=== PATIENT | male | born 1955 | race Caucasian/White ===

== ENCOUNTER 2019-03-19 13:59 | Emergency (ER) | payer MEDICARE, SELFPAY ==
[2019-03-19 14:00] VITALS: BP 121/73; PULSE 71; RESP 16; TEMP 37.2; O2SAT 98; BMI 24.3
[2019-03-19 14:41] LABS: Bedside Glucose 116 mg/dL (70-110)
[2019-03-19 14:41] LABS: Absolute Lymphocyte Count 1.77 X10^3/ul (0.83-4.51); Absolute Neutrophil Count 5.6 X10^3/uL (2.0-7.7); Basophil# 0.05 X10^3/uL; Basophil% 0.6 % (0-1); Eosinophil# 0.33 X10^3/uL; Eosinophils% 3.8 % (0-5); Hematocrit 45.7 % (40-54); Hemoglobin 15.1 g/dl (13.0-16.5); Lymphocyte # 1.77 X10^3/ul (4.0); Lymphocyte % 20.6 % (19-41); Mean Corpuscular Hgb 29.9 pg (27.0-32.0); Mean Corpuscular Volume 90.5 fL (80-94); Mean Platelet Vol. 10.2 fl (6.2-12.0); Monocyte# 0.79 X10^3/uL; Monocyte% 9.2 % (0-10); Neutrophil # 5.64 X10^3/uL (2.7-7.7); Neutrophil % 65.5 % (47-70); POSITIVE COUNT NO; POSITIVE DIFFERENTIAL NO; POSITIVE MORPHOLOGY NO; Platelet Count 179 K/mm3 (150-450); RBC Distribution Width CV 13.3 % (11.6-14.6); RBC Distribution Width SD 43.2 fl (35.1-43.9); Red Blood Count 5.05 M/mm3 (4.6-6.2); White Blood Count 8.6 K/mm3 (4.4-11.0)
[2019-03-19 14:51] LABS: Anion Gap 3 (5-15); BUN 20 mg/dL (7-18); BUN/Creat Ratio 16.5 RATIO (10-20); Calcium,Total 9.2 mg/dL (8.5-10.1); Chloride 105 mmol/L (98-107); Creatinine, Serum 1.21 mg/dL (0.70-1.30); EST Glomerular Filtration Rate 64 mL/min (>60); Est Glom Filt Rate - Afr Amer 77 mL/min (>60); Estimated Creatinine Clearance 71.71 ml/min; Glucose 101 mg/dL (74-106); Potassium 4.2 mmol/L (3.5-5.1); Sodium Level 136 mmol/L (136-145)
--- NOTE | 2019-03-19 15:26 | ED.VIS.GEN ---
History of Present Illness Chief Complaint: Neuro S/Sx Detail of Chief Complaint: Confusion, staring with left facial twitching Informant: Patient, Significant Other Onset: Weeks - reports 6 weeks. Patient states longer Context: Sudden Onset Timing: Intermittent Quality: Facial twitching with staring Location: Not applicable Current Severity: - - Resolved Maximum Severity: Moderate Worsened by: Prior history of left hemispheric bleed Relieved by: Nothing Associated Symptoms: no loss of postural tone or incontinence Narrative: Patient is a 63-year-old male who had a left hemispheric hemorrhagic stroke 6 years ago. He has residual right-sided weakness and altered sensation. He apparently is having episodes of staring with nonresponsiveness and facial twitching on the left side for the past 6 weeks according the patient longer per the . He denies headache. He denies change in vision. Denies trouble with speech or swallowing. No neurologic symptoms. Prior similar symptoms: No Recent Illness/Hospitalization: No - Past Medical History (1) History of hemorrhagic stroke with residual hemiparesis Status: Acute Past Medical History - Allergies and Home Meds Allergies/Adverse Reactions: Allergies Iodinated Contrast- Oral and IV Dye [CONTRASTS] Allergy (Verified 03/19/19 14:02) Hives Primary Care Physician: Evon Oneal MD [Primary Care Provider] - Prior records reviewed: Yes Lives: Spouse/ Significant Other Smoking Status: Former smoker Alcohol: None Review of Systems General: Denies: Chills, Fever, Sweats Eyes: Denies: Visual changes - bilaterally, Blurred Vision - bilaterally, Diplopia ENT: Denies: Bilateral ear pain, Rhinorrhea, Sore throat Cardiovascular: Denies: Chest pain, Palpitations Respiratory: Denies: Dyspnea, Cough, Dyspnea on exertion Gastrointestinal: Denies: Abdominal pain, Nausea, Vomiting, Diarrhea, Melena, Hematochezia Musculoskeletal: Denies: Myalgias, Arthralgias, Neck pain, Back pain, Swelling, Extremity Pain, -, - Skin: Denies: Rash, Wounds Neurological: Denies: Headache, Weakness, Parasthesia, Numbness Hematologic: Denies: Easy bruising, Easy bleeding Allergy: Denies: Uticaria, Swelling of the mouth Physical Exam Vital Signs/Narrative: Vital Signs Temp Pulse Resp BP Pulse Ox 03/19/19 14:00 98.9 F 71 16 121/73 H 98 Inital Vital Signs reviewed: Yes General: Well nourished, Well developed, No Acute Distress Head: Normocephalic, Atraumatic Eyes: Perrl, EOMI. Negative for: Pale conjunctiva ENT: Moist mucous membranes, No rhinorrhea, TM's clear Neck: Supple, Nontender, No lymphadenopathy, No JVD Cardiovascular: Regular rate, Regular rhythm, No murmurs, Normal S1, Normal S2 Respiratory: No distress, CTA bilaterally, Chest nontender Abdomen: Soft, Nontender, Nondistended, Normal bowel sounds Rectal: Deferred Back: Nontender, Normal Inspection Extremities: Nontender, No edema Skin: Normal color, No rash Neurological: Alert, Oriented x3. Negative for: Cranial nerves II-XII grossly intact, Normal Strength, Normal Sensation, Normal DTR - Bilateral Babinski sign, Normal Gait Psychological: Normal affect Diagnostic/Tx/Re-eval Laboratory Results 03/19/19 03/19/19 03/19/19 14:25 14:32 14:32 WBC 8.6 RBC 5.05 Hgb 15.1 Hct 45.7 MCV 90.5 MCH 29.9 MCHC 33.0 RDW 13.3 RDW Differential 43.2 Plt Count 179 MPV 10.2 Immature Gran % (Auto) 0.300 Neut % (Auto) 65.5 Lymph % (Auto) 20.6 Early % (Auto) 9.2 Eos % (Auto) 3.8 Baso % (Auto) 0.6 Absolute Neuts (auto) 5.6 Absolute Lymphs (auto) 1.77 Total Counted Not Reportable Sodium 136 Potassium 4.2 Chloride 105 Carbon Dioxide 28.0 Anion Gap 3 L BUN 20 H Creatinine 1.21 Estim Creat Clear Calc 71.71 Est GFR (MDRD) Af Amer 77 Est GFR (MDRD) Non-Af 64 BUN/Creatinine Ratio 16.5 Glucose 101 Calcium 9.2 POC Glucose 116 H - Medical Decision Making Patient presents with altered consciousness with facial twitching. Case was discussed with Dr. Scot Alcantar. He requested patient to call office for outpatient follow-up and work-up. He and all likely will need an MRI and EEG. He did not want patient started on any anticonvulsant. ED Disposition - Plan for ED Patient: Disposition: Home or Assisted Living Diagnosis: Focal motor seizure Instructions: ED Seizure New Onset Unk Cause Referrals: Evon Oneal MD [Primary Care Provider] - Scot Alcantar MD [STAFF PHYSICIAN] - 5-7 Days
[2019-03-19 15:59] VITALS: BP 121/83; PULSE 60; RESP 16; O2SAT 97
== END 2019-03-19 16:01 | disposition home or self-care (01) ==
PROVIDERS: Emergency Provider Emergency Medicine; Family Provider Internal Medicine; PCP Internal Medicine
DX: R56.9 Unspecified convulsions (principal); I69.351 Hemiplegia and hemiparesis following cerebral infarction affecting right dominant side; I69.398 Other sequelae of cerebral infarction; R20.9 Unspecified disturbances of skin sensation; Z87.891 Personal history of nicotine dependence
CPT/HCPCS: 80048; 82962; 85025; 99284; A4216

== ENCOUNTER 2020-03-21 14:54 | Emergency (ER) | payer MEDICARE, SELFPAY ==
[2020-03-21] VITALS (11 sets, daily range): BP systolic 106–190; BP diastolic 73–127; PULSE 64–85; RESP 17–20; TEMP 36.6; O2SAT 95–969; BMI 27.4
--- NOTE | 2020-03-21 15:01 | CT_ITS ---
We are attempting to reach an attending provider to discuss findings. An addendum with communication details will be sent when the communication is complete. STUDY: CT BRAIN WITHOUT CONTRAST REASON FOR EXAM: Male, 64 years old. STROKE RADIATION DOSAGE (If Supplied By Facility): CTDIvol = ( 44.99 ) mGy, DLP = ( 796.11 ) mGycm TECHNIQUE: Transaxial CT imaging of the brain was performed without administration of intravenous contrast material. Individualized dose optimization techniques were used for this CT. COMPARISON: None. FINDINGS: There is cerebral atrophy with widening of the extra-axial spaces and ventricular dilatation. There are areas of decreased attenuation within the white matter tracts of the supratentorial brain, consistent with microvascular disease changes. Left frontal, left parietal and right parietal encephalomalacia and gliosis , consistent with prior insults are noted. There is hypodensity of the right basal ganglia, infarct indeterminate age. There is no intracranial hemorrhage. There are no findings of an acute ischemic infarction. Normal soft tissue structures. Normal visualized paranasal sinuses. CT/Brain/Head without Contrast IMPRESSION: Right basal ganglia infarct. Acute infarction is not excluded. Chronic infarcts. Further evaluation with MRI can be obtained. Electronically Signed: Bri Carl MD at 15:21 EDT Tel , Service support ,
--- NOTE | 2020-03-21 15:01 | EKG12_ITS ---
Test Reason : NEURO Blood Pressure : / mmHG Vent. Rate : 066 BPM Atrial Rate : 066 BPM P-R Int : 176 ms QRS Dur : 076 ms QT Int : 426 ms P-R-T Axes : -15 011 019 degrees QTc Int : 446 ms Normal sinus rhythm Normal ECG Confirmed by DIPAK COVINGTON, KUMAR ([id number]), makeup editor ULICES ZHANG ([id number]) on 03/24/2020 1:09:15 PM Referred By: Confirmed By:KUMAR QUESADA MD
--- NOTE | 2020-03-21 15:01 | RAD_ITS ---
STUDY: X-RAY CHEST REASON FOR EXAM: Male, 64 years old. KNOWN INFILTRATION LEFT ARM FROM CTA TECHNIQUE: Single frontal view of the chest. COMPARISON: None. FINDINGS: Contrast infiltration in the soft tissues of the left arm. The lungs are clear and expanded. There is no demonstrated pleural abnormality. Prominent cardiac silhouette. Normal mediastinum and riley. Normal visualized pulmonary arteries. Normal visualized aortic arch and descending thoracic aorta. Normal visualized thoracic spine. Normal visualized ribs, clavicles, and shoulders. There is no demonstrated abnormality of the visualized soft tissue structures of the upper abdomen. RAD/Chest 1 View IMPRESSION: No acute pulmonary findings. Electronically Signed: Rick Valenzuela MD at 17:18 EDT Tel , Service support ,
--- NOTE | 2020-03-21 15:18 | CT_ITS ---
STUDY: CTA HEAD AND NECK WITH CONTRAST REASON FOR EXAM: Male, 64 years old. STROKE RADIATION DOSAGE (If Supplied By Facility): CTDIvol = ( 19.82 ) mGy, DLP = ( 696.81 ) mGycm TECHNIQUE: CT angiography was performed with a multi-detector CT scanner. Data acquisition was obtained from the skull base through the vertex following intravenous administration of 100 CC ISOVUE 370. MIP images were reconstructed from the axial data set. Post-processing of the angiographic images was performed, with multiplanar reformation and 3D reconstruction. Individualized dose optimization techniques were used for this CT. COMPARISON: Head CT 03/21/2020 FINDINGS: Normal bilateral petrous carotid arteries. Normal right cavernous carotid artery with a normal supraclinoid bifurcation. Normal left cavernous carotid artery with a normal supraclinoid bifurcation. There is hypoplastic development of the right A1 segment of the anterior cerebral arteries with an atretic but intact artery. Normal left A1 segments of the anterior cerebral artery. Normal intact anterior communicating artery (ACOM). Normal bilateral A2 segments of the anterior cerebral arteries. Normal right M1 and M2 segments of the middle cerebral arteries, with a normal M1 bifurcation. Normal left M1 and M2 segments of the middle cerebral arteries, with a normal M1 bifurcation. Normal right posterior communicating artery (PCOM). Normal left posterior communicating artery (PCOM). Normal bilateral vertebral arteries. Normal basilar artery with a normal basilar bifurcation. The visualized bilateral superior cerebellar (SCA) arteries are normal. Normal bilateral P1, P2 and visualized P3 segments of the posterior cerebral arteries. There is no demonstrated aneurysm of the [place] of [place]. Left posterior encephalomalacia. AORTIC ARCH: Normal visualized aortic arch. The proximal left subclavian artery is occluded from its origin distally for a length of 26 mm. RIGHT CAROTID ARTERIES: Normal right common carotid artery (CCA). Moderate concentric calcified bulb plaque without underlying flow-limiting stenosis. Normal origin of the right internal carotid (ICA) artery without a hemodynamically significant stenosis. Normal visualized cervical portion of the right internal carotid artery. Normal origin of the right external carotid artery (ECA). LEFT CAROTID ARTERIES: Circumferential mixed plaque is present in the proximal left common carotid artery with an associated 50% stenosis, with residual lumen diameter 5 mm and poststenotic diameter of 10 mm. Heavy concentric mixed plaque is present in the carotid bulb and ICA origin with an associated 50% stenosis, with residual lumen diameter of 2.4 mm and poststenotic diameter of 5 mm. Just distal to the carotid bulb narrowing described above, concentric soft plaque is present in the proximal left internal carotid artery with an associated 70% stenosis, with residual lumen diameter of 1.9 mm and poststenotic diameter of 5.9 mm. Normal visualized cervical portion of the left internal carotid artery. Normal origin of the left external carotid artery (ECA). VERTEBRAL ARTERIES: The left vertebral artery arises from the proximal left subclavian artery, just distal to the subclavian artery occlusion described above. The left vertebral artery itself is patent throughout its course in the neck. The right vertebral artery is patent. Pulmonary emphysema. CT/CTA Head AND Neck W/ Contrast IMPRESSION: No CTA evidence of significant intracranial arterial pathology. 50% stenosis of the proximal left common carotid artery. 50% stenosis of the origin of the left ICA in the neck. 70% stenosis of the proximal left ICA in the neck. The proximal left subclavian artery is occluded from its origin distally for a length of 26 mm. The left vertebral artery in the neck arises from the proximal left subclavian artery, just distal to the subclavian artery occlusion described above. The left vertebral artery itself is otherwise patent throughout its course in the neck. NASCET criteria was used. Electronically Signed: Rcik Valenzuela MD at 18:05 EDT Tel , Service support ,
[2020-03-21] MEDS: DiphenhydrAMINE 50 MG/ML Syringe 25 MG IV (15:27)
[2020-03-21] MEDS: MethylPREDNISolone 125 MG/2 ML Vial 60 MG IV (15:27)
--- NOTE | 2020-03-21 15:27 | ED.VIS.STROK ---
History of Present Illness Chief Complaint: Neuro S/Sx Informant: Field Marketing Representative Narrative: Reportedly the patient was last seen last night. No specific timeframe upon the patient's arrival was given. Per EMS the checked on the patient prior to calling 911 and he was found virtually unresponsive in his bed. She told EMS that the TVs were on in the house which was a bit unusual. Patient has a history of a prior left-sided hemorrhagic stroke that left him with right arm paralysis per EMS. Reportedly 6 months ago was experiencing seizures and was placed on Keppra. He was seen Dr. Scot Alcantar in [place] for neurology. From what I can glean from the chart the patient was seen 2 days ago with 6 weeks of intermittent confusion and facial twitching. Case was discussed with his neurologist at that time and outpatient follow-up was recommended. Past Medical History - Allergies and Home Meds Allergies/Adverse Reactions: Allergies Iodinated Contrast Media [CONTRASTS] Allergy (Verified 03/19/19 14:02) Hives Primary Care Physician: Evon Oneal MD [Primary Care Provider] - Smoking Status: Former smoker Review of Systems ROS: Unable to Obtain STROKE Vital Signs/Narrative: Vital Signs Temp Pulse Resp BP 03/21/20 15:12 97.8 F 64 17 173/75 H 03/21/20 15:00 67 17 155/94 H 03/21/20 14:57 97.8 F 67 18 157/127 H Inital Vital Signs reviewed: Yes - NIHSS Initial 1a Level of Consciousness: 0 1b LOC Questions (Score 2 if aphasic/stupor): 2 1c LOC Commands (Only score 1st attempt): 1 2 Best Gaze (If aphasic, use reflexive mvmts.): 2 3 Visual: 2 4 Facial Palsy: 0 5 Motor Arm Right (UN = amputation/fusion): UN 5 Motor Arm Left: UN 6 Motor Leg Right: UN 6 Motor Leg Left: UN 7 Limb ataxia (Only + if out of proportion): UN 8 Sensory (Aphasia/stupor=0 or 1, coma=2): 1 9 Best Language: 0 10 Dysarthria (mute, coma=2, intubated=UN): 2 11 Extinction and Inattention (only scored if +): 2 Total Score: 12 General: Well nourished, Well developed Head: Normocephalic, Atraumatic Eyes: Perrl, - - Patient's eyes seem deviated to the right and I cannot get him to look to the left past midline ENT: Moist mucous membranes, No rhinorrhea Neck: Supple, Nontender Cardiovascular: Regular rate, Regular rhythm, No murmurs Respiratory: No distress, CTA bilaterally, Chest nontender Abdomen: Soft, Nontender, Nondistended, Normal bowel sounds Back: Nontender, Normal Inspection Extremities: Nontender, No edema Skin: Normal color, No rash Neurological: - - I asked the patient to wiggle the fingers of his left hand and he could and then I asked him to wiggle his toes on the left foot and he could. After that I was unable to get him to follow any further directions. I did see him wrinkle his forehead Diagnostic/Tx/Re-eval Clinical Impression(s) from Imaging Studies Brain CT 03/21/20 15:01 IMPRESSION: Right basal ganglia infarct. Acute infarction is not excluded. Chronic infarcts. Further evaluation with MRI can be obtained. Electronically Signed: Bri Carl MD at 15:21 EDT Tel , Service support , ADDENDUM: 03/21/20 1558 IMPRESSION: Right basal ganglia infarct. Acute infarction is not excluded. Chronic infarcts. Further evaluation with MRI can be obtained. N.B. : The above information has been verbally conveyed by Bri Carl MD to Dillon Morales MD, , on 03/21/2020 15:51:42 (ET). Electronically Signed: Bri Carl MD at 15:21 EDT Tel , Service support , Chest X-Ray 03/21/20 15:01 IMPRESSION: No acute pulmonary findings. Electronically Signed: Rick Valenzuela MD at 17:18 EDT Tel , Service support , Head/Neck CTA 03/21/20 15:18 IMPRESSION: No CTA evidence of significant intracranial arterial pathology. 50% stenosis of the proximal left common carotid artery. 50% stenosis of the origin of the left ICA in the neck. 70% stenosis of the proximal left ICA in the neck. The proximal left subclavian artery is occluded from its origin distally for a length of 26 mm. The left vertebral artery in the neck arises from the proximal left subclavian artery, just distal to the subclavian artery occlusion described above. The left vertebral artery itself is otherwise patent throughout its course in the neck. NASCET criteria was used. Electronically Signed: Rick Valenzuela MD at 18:05 EDT Tel , Service support , Laboratory Last Values WBC 13.9 K/mm3 (4.4-11.0) H 03/21/20 15:06 RBC 5.30 M/mm3 (4.6-6.2) 03/21/20 15:06 Hgb 15.7 g/dL (13.0-16.5) 03/21/20 15:06 Hct 48.6 % (40-54) 03/21/20 15:06 MCV 91.7 fL (80-94) 03/21/20 15:06 MCH 29.6 pg (27.0-32.0) 03/21/20 15:06 MCHC 32.3 g/dL (32-36) 03/21/20 15:06 RDW Std Deviation 41.8 fl (35.1-43.9) 03/21/20 15:06 RDW Coeff of Shazia 12.6 % (11.6-14.6) 03/21/20 15:06 Plt Count 267 K/mm3 (150-450) 03/21/20 15:06 MPV 10.4 fl (6.2-12.0) 03/21/20 15:06 Immature Gran % (Auto) 0.500 % (0.0-0.9) 03/21/20 15:06 Neut % (Auto) 90.8 % (47-70) H 03/21/20 15:06 Lymph % (Auto) 6.1 % (19-41) L 03/21/20 15:06 [place] % (Auto) 2.3 % (0-10) 03/21/20 15:06 Eos % (Auto) 0.0 % (0-5) 03/21/20 15:06 Baso % (Auto) 0.3 % (0-1) 03/21/20 15:06 Absolute Neuts (auto) 12.6 X10^3/uL (2.0-7.7) H 03/21/20 15:06 Absolute Lymphs (auto) 0.85 X10^3/uL (0.83-4.51) 03/21/20 15:06 Nucleated RBC % 0 % (0-5) 03/21/20 15:06 PT 12.9 SECONDS (11.7-14.9) 03/21/20 15:06 INR 1.0 03/21/20 15:06 APTT 32.6 Seconds (24.1-36.2) 03/21/20 15:06 Sodium 139 mmol/L (136-145) 03/21/20 15:06 Potassium 4.7 mmol/L (3.5-5.1) 03/21/20 15:06 Chloride 103 mmol/L (98-107) 03/21/20 15:06 Carbon Dioxide 26.0 mmol/L (21.0-32.0) 03/21/20 15:06 Anion Gap 10 (5-15) 03/21/20 15:06 BUN 15 mg/dL (7-18) 03/21/20 15:06 Creatinine 1.37 mg/dL (0.70-1.30) H 03/21/20 15:06 Estim Creat Clear Calc 55.50 ml/min 03/21/20 15:06 Est GFR (MDRD) Af Amer 67 mL/min (>60) 03/21/20 15:06 Est GFR (MDRD) Non-Af 55 mL/min (>60) L 03/21/20 15:06 BUN/Creatinine Ratio 10.9 RATIO (10-20) 03/21/20 15:06 Glucose 131 mg/dL (74-106) H 03/21/20 15:06 Calcium 9.4 mg/dL (8.5-10.1) 03/21/20 15:06 Troponin I < 0.015 ng/mL (<0.045) 03/21/20 15:06 Urine Color Yellow (Yellow) 03/21/20 17:55 Urine Clarity Sl. Cloudy (Clear) 03/21/20 17:55 Urine pH 6.5 (5.0 - 8.0) 03/21/20 17:55 Ur Specific [place] 1.015 (1.002-1.030) 03/21/20 17:55 Urine Protein 100 mg/dl (Negative) H 03/21/20 17:55 Urine Glucose (UA) Normal mg/dl (Normal) 03/21/20 17:55 Urine Ketones 5 mg/dl (Negative) H 03/21/20 17:55 Urine Occult Blood 10 /ul (Negative) H 03/21/20 17:55 Urine Nitrite Negative (Negative) 03/21/20 17:55 Urine Bilirubin Negative mg/dL (Negative) 03/21/20 17:55 Urine Urobilinogen Normal mg/dl (Normal) 03/21/20 17:55 Ur Leukocyte Esterase Negative /ul (Negative) 03/21/20 17:55 Urine RBC 0 SEEN /hpf (0-5) 03/21/20 17:55 Urine WBC 0 SEEN /hpf (0-5) 03/21/20 17:55 Ur Squamous Epith Cells 0-5 SEEN /hpf (0-5) 03/21/20 17:55 Urine Bacteria 0 SEEN /hpf (None Seen) 03/21/20 17:55 Urine Mucus 0 SEEN /hpf (<or=2+) 03/21/20 17:55 - Medical Decision Making Stroke Team Activated: Yes Reviewed Inclusion/Exclusion criteria: Yes Was Patient considered for Endovascular Intervention?: No IV Alteplase (t-PA) Administered: No No contraindications for IV Alteplase (t-PA) administration.: No Alteplase (t-PA) risks, benefits, alternative discussed: No Not given: Patient refusal: No Initial head CT was negative. Case was discussed with [facility] neurology who recommended a CTA of the head and neck. They were notified that the patient has a contrast allergy and it would be a 1 hour prep before could be done. And once the prep was done he would have Benadryl on board which could skew our neurologic exams. Patient was taken to CT where the IV infiltrated the IV contrast. He was brought back to the room and a new IV was started and he was taken back and had a CTA performed which did not demonstrate any large vessel occlusion explain his symptoms. Please see the radiologist dictation. I spoke with our hospitalist who recommends he be transferred to a larger facility that has more advanced EEG capabilities. Patient significant other is comfortable with transferring to [facility]. Critical care time (excluding procedures): 30-74 minutes - 31 minutes ED Disposition - Plan for ED Patient: Disposition: [facility] Diagnosis: Acute ischemic stroke, Epilepsy Referrals: Evon Oneal MD [Primary Care Provider] -
[2020-03-21 15:31] LABS: Prothrombin Time (Protime)PT. 12.9 SECONDS (11.7-14.9)
[2020-03-21 15:32] LABS: Partial Thromboplast Time 32.6 Seconds (24.1-36.2)
[2020-03-21 15:37] LABS: Absolute Lymphocyte Count 0.85 X10^3/uL (0.83-4.51); Absolute Neutrophil Count 12.6 X10^3/uL (2.0-7.7); Anion Gap 10 (5-15); BUN 15 mg/dL (7-18); BUN/Creat Ratio 10.9 RATIO (10-20); Basophil# 0.04 X10^3/uL; Basophil% 0.3 % (0-1); Calcium,Total 9.4 mg/dL (8.5-10.1); Chloride 103 mmol/L (98-107); Creatinine, Serum 1.37 mg/dL (0.70-1.30); EST Glomerular Filtration Rate 55 mL/min (>60); Est Glom Filt Rate - Afr Amer 67 mL/min (>60); Glucose 131 mg/dL (74-106); Hematocrit 48.6 % (40-54); Hemoglobin 15.7 g/dL (13.0-16.5); Lymphocyte # 0.85 X10^3/ul (4.0); Lymphocyte % 6.1 % (19-41); Mean Corp Hgb Conc 32.3 g/dL (32-36); Mean Corpuscular Hgb 29.6 pg (27.0-32.0); Mean Corpuscular Volume 91.7 fL (80-94); Mean Platelet Vol. 10.4 fl (6.2-12.0); Monocyte# 0.32 X10^3/uL; Monocyte% 2.3 % (0-10); NRBC Flagged by Analyzer 0 % (0-5); Neutrophil # 12.62 X10^3/uL (2.7-7.7); Neutrophil % 90.8 % (47-70); Platelet Count 267 K/mm3 (150-450); Potassium 4.7 mmol/L (3.5-5.1); RBC Distribution Width CV 12.6 % (11.6-14.6); RBC Distribution Width SD 41.8 fl (35.1-43.9); Sodium Level 139 mmol/L (136-145); White Blood Count 13.9 K/mm3 (4.4-11.0)
--- NOTE | 2020-03-21 16:06 | ED.RN ---
ATTEMPTED STROKE SCALE IMMEDIATELY AFTER DOING A BED LINEN CHANGE AND CLEANING PT FROM URINARY INCONTINENCE. PT WAS PUSHING STRONGLY AGAINST THE BED RAIL WITH THE LEFT ARM WHEN ATTEMPTING TO ROLL. PT ANSWERED IF HE WAS COMFORTABLE AFTER PLACING WARM BLANKETS AND REPORTED HE WAS. PT NOT ANSWERING QUESTIONS NOW AND NOT FOLLOWING COMMANDS FOR STROKE SCALE.
[2020-03-21 18:02] LABS: Bacteria 0 SEEN /hpf (None Seen); Mucous, Urine 0 SEEN /hpf (<or=2+); Red Blood Cells-Urine 0 SEEN /hpf (0-5); White Blood Cells 0 SEEN /hpf (0-5)
[2020-03-21 18:03] LABS: Color, Urine Yellow (Yellow); Glucose, Dipstick Normal (Normal); Ketone-Dipstick 5 mg/dl (Negative); Leukocyte Esterase-Dipstick Negative /ul (Negative); Nitrite-Dipstick Negative (Negative); Occult Blood-Urine 10 /ul (Negative); Protein-Dipstick 100 mg/dl (Negative); Specific Gravity, Urine 1.015 (1.002-1.030); Urine Bilirubin Dipstick Negative (Negative); Urine Clarity Sl. Cloudy (Clear); Urine Urobilinogen Normal (Normal); Urine pH 6.5 (5.0 - 8.0)
[2020-03-21 18:12] LABS: Squamous Epithelial Cells - UA 0-5 SEEN /hpf (0-5)
--- OUTSIDE RECORDS SUMMARY | 2020-07-25 13:15 | XMS RPT_ITS | CCD ---
:1955 External Reference #:[id number] Author Organization [facility] Care Team Providers Name Role Phone [facility], [facility] Other Primary Care Provider Los PEREZ Referring Unavailable Ericka LUQUE Admitting Unavailable CONSULT Consulting Unavailable DIMITRIS Attending Unavailable Jm Primary Care Provider Allergies Reported Allergen Reaction(s) Severity Date of Onset Location Iodine Rash 09-26-2016 - [facility] (64686) Medications Current Medications Medication Name Sig Date Prescriber Location Aspirin aspirin 81 MG Chew 04-04-2020 Carly Morrison [facility] Tab chewable tablet 1 [facility] (59069) tablet by Per NG tube route daily. 0 04/04/2020 Active aspirin chewable tablet 81 mg 03-26-2020 - 04-06-2020 [facility] (45969) atorvastatin atorvastatin 80 MG tablet 1 04-03-2020 [facility] tablet by Per NG tube route at (96474) bedtime. 0 04/03/2020 Active atorvastatin (LIPITOR) tablet 80 03-25-2020 - 04-06-2020 [facility] mg (94928) atorvastatin (LIPITOR) tablet 40 03-23-2020 - 03-25-2020 [facility] mg (06100) levETIRAcetam levETIRAcetam 100 MG/ML oral 04-03-2020 [facility] solution 10 mL by Per NG tube (73016) route every 12 hours. 0 04/03/2020 Active levETIRAcetam (KEPPRA) 03-30-2020 - Goldy Gonzalez [facility] oral solution 1,000 mg 04-06-2020 [facility] (4 1131) levETIRAcetam (KEPPRA) 03-30-2020 [facility],000 mg 03-30-2020 [facility] (12127) Multiple Vitamin Multiple Vitamin 04-04-2020 [facility] (multivitamin) tablet (multivitamin) tablet Take [facility] (09674) 1 tablet by mouth daily. 0 04/04/2020 Active Nutritional Supplements Nutritional Supplements 04-03-2020 [facility] (Osmolite 1.2 Ernst) Liquid (Osmolite 1.2 Ernst) Liquid [facility] (21544) 95 mL/hr by Nasogastric route every 24 hours. 0 04/03/2020 Active POLYETHYLENE GLYCOL 3350 polyethylene glycol 17 g 04-04-2020 [facility] Pack packet 1 packet by [facility] (34642) Per NG tube route daily. 0 04/04/2020 Active polyethylene glycol 03-25-2020 - 04-06-2020 Casey Ericka Baca [facility] (MIRALAX) packet 17 g [facility] (43 210) tamsulosin Tamsulosin HCl 0.4 MG 04-01-2020 - 04-06-2020 [facility] capsule Take 1 capsule by [facility] (19285) mouth daily. 0 04/04/2020 Active Water Water For Irrigation, 04-03-2020 [facility] Sterile (water po liquid, [facility] (28721) free water,) Solution 30 mL by Per NG tube route every 6 hours. 0 04/03/2020 Active water po liquid (free water) 04-01-2020 - 04-06-2020 [facility] oral 30 mL (47262) Completed/Discontinuned Medications Medication Name Sig Date Prescriber Location Acetaminophen acetaminophen 03-22-2020 - [facility] (TYLENOL) tablet 650 04-06-2020 [facility] mg (93712) acyclovir (ZOVIRAX) acyclovir (ZOVIRAX) 03-22-2020 - [facility] 800 mg in sodium 800 mg in sodium 03-23-2020 [facility] chloride 0.9%, with chloride 0.9%, with ( 93758) overfill 291 mL (total overfill 291 mL (total volume) IVPB volume) IVPB acyclovir (ZOVIRAX) acyclovir (ZOVIRAX) 03-22-2020 - [facility] 900 mg in sodium 900 mg in sodium 03-22-2020 [facility] chloride 0.9%, with chloride 0.9%, with ( 19686) overfill 293 mL (total overfill 293 mL (total volume) IVPB volume) IVPB acyclovir (ZOVIRAX) 900 mg in 03-22-2020 - 03-22-2020 [facility] sodium chloride 0.9%, with (4321 0) overfill 293 mL (total volume) IVPB Amoxicillin / amoxicillin-clavulanate 04-03-2020 - [facility] Clavulanate 875-125 MG tablet Take 1 04-06-2020 [facility] tablet by mouth every [address] hours for 6 days. 12 tablet 0 (11403) 04/03/2020 04/06/2020 Discontinued (Stop Taking at Discharge) ampicillin ampicillin (OMNIPEN) 2 g in 03-22-2020 - [facility] (OMNIPEN) 2 g in sodium chloride 0.9%, with 03-23-2020 [facility] sodium chloride overfill 120 mL (total CE NTER 0.9%, with volume) IVPB (72373) overfill 120 mL (total volume) IVPB Ampicillin-Sulbac Ampicillin-Sulbactam Sodium 04-02-2020 - Will C [facility] tavera Sodium (UNASYN) 3 g in sodium 04-04-2020 [facility] (UNASYN) 3 g in chloride 0.9% (MB PLUS) 100 CENTER sodium chloride mL (total volume) IVPB (4 3210) 0.9% (MB PLUS) 100 mL (total volume) IVPB Barium Sulfate Barium Sulfate (VARIBAR THIN 03-29-2020 - Chio Khan [facility] (VARIBAR THIN LIQUID) 40 % 50 mL 03-29-2020 [facility] LIQUID) 40 % 50 CENTER mL (64876) Calcium Chloride dextrose 5% and lactated 03-28-2020 - [facility] / Glucose / ringers IV solution 1,000 mL 03-28-2020 [facility] Lactate / CENTER Potassium (37595) Chloride / Sodium Chloride Calcium Chloride lactated ringers IV solution 04-05-2020 - [facility] / Lactate / 1,000 mL 04-05-2020 [facility] Potassium CENTER Chloride / Sodium (87977) Chloride lactated ringers IV solution 04-01-2020 - [facility] mL (37402) lactated ringers IV solution 03-22-2020 - 03-23-2020 [facility] 1,000 mL (73472) cefepime ceFEPIme (MAXIPIME) 2 g 03-21-2020 [facility] in dextrose 100 ml 03-22-2020 [facility] (4 3210) premix IVPB cefTRIAXone cefTRIAXone (ROCEPHIN) 2 03-22-2020 - [facility] g in dextrose 50mL 03-24-2020 [facility] (4 3210) premix IVPB CUSTOM MEDICATION CUSTOM MEDICATION Please 04-03-2020 [facility] check a Mg, K, and PO4 [facility]ENT[facility] (56949) daily and supplement as necessary 1 Each 0 04/03/2020 Active CUSTOM MEDICATION Please check a 04-03-2020 - 04-03-2020 [facility] Mg, K, and PO4 daily and (21845) supplement as necessary 1 Each 0 04/03/2020 04/03/2020 Discontinued (Reorder) Dexamethasone dexamethasone PF 03-22-2020 [facility] (DECADRON) injection 03-25-2020 [facility] 10 mg (35599) diphenhydrAMINE diphenhydrAMINE 05-10-2018 [place] (Antony) [facility] (BENADRYL) 50 mg Annita Slade (59482) capsule Take 1 capsule (Pa) Annita by mouth as directed for 1 dose. one (1) hour prior to exam. 1 capsule 0 05/10/2018 Active Comment: Take 1 capsule by mouth as d irected for 1 dose. one (1) hour prior to exam. Enoxaparin enOXAParin (LOVENOX) 03-24-2020 [facility] injection 40 mg 04-06-2020 [facility] (54710) fluticasone fluticasone 10-22-2018 On [facility] (FLONASE) 50 Diane (35724) mcg/actuation nasal Cathy spray Indications: Diane Middle ear effusion, bilateral Use 2 Sprays in each nostril once daily. Rinse mouth after use. 1 Bottle 1 10/22/2018 Active Comment: Use 2 Sprays in each nostril once daily. Rinse mouth after use. gadoterate gadoterate Meglumine 03-25-2020 - Rodrick Grissom [facility] Meglumine (DOTAREM) 5 MMOL/10ML 03-24-2020 [facility] (DOTAREM) 5 injection 3-60 mL (59224) MMOL/10ML injection 3-60 mL iohexol iohexol (OMNIPAQUE) 03-26-2020 - Shelley Bill [facility] (OMNIPAQUE) 300 300 MG/ML vial 50 mL 03-26-2020 [facility] MG/ML vial 50 mL (22481) iv contrast (will iv contrast (will be 05-10-2018 [place] ([place]) [facility] be provided with provided with Annita Slade (52465) radiology test) radiology test) CT (Pa) Annita Urogram WO/W Inject, intravenously, once for 1 dose.No IV access, insert saline lock prior to the beginning of sedation, infusion, injection of imaging exam. Discontinue saline lock post exam. If Pt. has a central line or IVAD, may access for administration according to line specific nursing protocol. Once exam is complete flush line and de-access according to line specific nursing protocol in the CT contrast administration guidelines link. 1 Each 0 05/10/2018 Active Comment: CT Urogram WO/W Inject, intr avenously, once for 1 dose.No IV access, insert saline lock prior to the beg inning of sedation, infusion, injection of imaging exam. Discontinue sa line lock post exam. If Pt. has a central line or IVAD, may access for admi nistration according to line specific nursing protocol. Once exam is compl ete flush line and de-access according to line specific nursing protocol in the CT contrast administration guidelines link. levETIRAcetam levETIRAcetam 03-23-2020 - Lamar Daly [facility] (KEPPRA) 1,000 mg in (KEPPRA) 1,000 mg in 03-30-2020 [facility] C[facility] sodium chloride 0.9%, sodium chloride (43 210) with overfill 120 mL 0.9%, with overfill (total volume) IVPB 120 mL (total volume) IVPB levETIRAcetam (KEPPRA) 1,000 mg 03-21-2020 - 03-21-2020 [facility] in sodium chloride 0.9%, with (4 3210) overfill 120 mL (total volume) IVPB levETIRAcetam levETIRAcetam 03-22-2020 - [facility] (KEPPRA) 500 mg in (KEPPRA) 500 mg in 03-23-2020 [facility] sodium chloride sodium chloride (61722) 0.9%, with overfill 0.9%, with overfill 115 mL (total 115 mL (total volume) IVPB volume) IVPB levoFLOXacin levoFLOXacin 750 MG 04-07-2020 - [facility] tablet Take 1 04-12-2020 [facility] tablet by mouth (57872) daily for 5 days. 5 tablet 0 04/07/2020 04/12/2020 Active Lidocaine lidocaine 1% (PF) 03-22-2020 - Cathy [facility] (XYLOCAINE MPF) 1 % 03-22-2020 [facility] injection 3 mL (96087) meloxicam meloxicam (MOBIC) 07-19-2017 Darren Montalvo 15 mg tablet [facility] (4419 5) Indications: D [facility] Swelling of foot joint, right Take 1 tablet by mouth once daily. With food. 30 tablet 1 07/19/2017 Active Comment: Take 1 tablet by mouth once daily. With food. multivitamin tablet 1 multivitamin tablet 1 03-26-2020 - [facility] tablet tablet 04-06-2020 [facility] (86429) Osmolite 1.2 Ernst LIQD Osmolite 1.2 Ernst LIQD 04-02-2020 - [facility] 04-06-2020 [facility] (20872) Osmolite 1.2 Ernst LIQD 04-02-2020 - 04-02-2020 [facility] (65803) Osmolite 1.2 Ernst LIQD 03-29-2020 - 04-01-2020 [facility] (20686) Osmolite 1.2 Ernst LIQD 03-26-2020 - 03-29-2020 [facility] (68088) Perflutren Lipid Perflutren Lipid 03-25-2020 - Umberto Aguayo [facility] Microsphere Microsphere 03-25-2020 [facility] (DEFINITY) 1.5 mL (DEFINITY) 1.5 mL (4321 0) in Normal Saline in Normal Saline Flush 0.9% 8.5 mL Flush 0.9% 8.5 mL Piperacillin / piperacillin-tazob 04-04-2020 - [facility] tazobactam actam (ZOSYN) 4.5 04-06-2020 [facility] g in dextrose (33934) 100ml premix IVPB Sodium Chloride sodium chloride 04-04-2020 - Historical [facility] 0.9% IV solution 04-04-[address] (82288) sodium chloride 0.9% IV 03-21-2020 - 03-22-2020 [facility] MEDICAL solution 1,000 mL [facility] (11500) sodium chloride 0.9% IV 03-21-2020 - 03-22-2020 Rishan T Wes [facility] MEDICAL [facility] (07774) Thiamine thiamine tablet 100 mg 03-26-2020 - [facility] MEDICAL 04-02-2020 [facility] (38593) vancomycin (VANCOCIN) vancomycin (VANCOCIN) 03-22-2020 [facility] 1,750 mg in 5% 1,750 mg in 5% 03-24-2020 [facility] (432 10) dextrose 292.5 ml dextrose 292.5 ml premade IVPB premade IVPB vancomycin (VANCOCIN) vancomycin (VANCOCIN) 03-21-2020 - [facility] 2,000 mg in 5% 2,000 mg in 5% 03-22-2020 CENTER (432 10) dextrose 295 ml dextrose 295 ml premade IVPB premade IVPB Problems Active Problems Category Problem Name Status Date Location Acute cerebrovascular Cerebrovascular accident Active 014 - [facility] disease [facility] (83082) Alcohol-related Alcohol abuse Active 06-23-2014 - [facility] linic disorders (53534) Chronic obstructive Pulmonary emphysema Active 08-25-2015 - [facility] pulmonary disease and (50354 ) bronchiectasis Hyperplasia of prostate Benign prostatic Active 10-30-2016 - 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 (43 210) Residual codes; Altered mental status Active 03-22-2020 - [facility] (22228) Past or Other Problems Category Problem Name Status Date Location Congestive heart Diastolic Completed 08-25-2015 - [facility] linic failure; nonhypertensive dysfunction (44 195) Genitourinary symptoms Vincent hematuria Completed 05-10-2018 [facility] and ill-defined (47371) conditions Other diseases of [place] of urinary Completed 10-30-2016 - [facility] bladder and urethra bladder (79174) Other screening for Raised prostate Completed 10-30-2016 - [facility] suspected conditions specific antigen (44 195) (not mental disorders or infectious disease) Residual codes; H/O: surgery Completed 06-23-2014 - [facility] inic unclassified (69107) Results Result Name Value Range Unit Interpretation Flag Date Location procalcitonin on 27-03-30 Procalcitonin 0.14 <=0.50 ng/mL Normal 04-06-2020 [facility] nter (11516) Comment: Order Comment: In adult, cri tically ill ICU patients, studies have demonstrated that values <0. 5 ng/mL represent a low risk of severe systemic infection/sepsis.In adult, c ritically ill ICU patients, studies have demonstrated that values >2. 0 ng/mL represent a high risk of severe systemic infection/sepsis.Results <0. 5 ng/mL do not exclude infection, as localized infections (without systemic signs) and early systemic infections (<6 hours) can be associated with such low levels. Several non-infectious clincal conditions such as willams, tr auma, surgery and cardiogenic shock have been associated with elevated pro calcitonin levels.All procalcitonin results should be interpreted in ass ociation with the patients clinical condition and all laboratory findings. The cut off levels noted above for this assay should not be applied to sasha michelle, emergency department or immunocompromised patients. Performed By: #### PTISTR, P TT #### [facility] (Dale DIAZ) [address] [address] phosphate, inorganic on 2020-04-06 Phosphorous 4.0 2.2-4.6 mg/dL Normal 04-06-2020 [facility] (00 000) Comment: Performed By: #### PTISTR, P TT #### [facility] ([facility]) [address] [place] [address] 77121 magnesium on 04-06 Magnesium [Mass/Vol] 1.9 1.6-2.6 mg/dL Normal 0 [facility] nter (52909) Comment: Performed By: #### PTISTR, P TT #### [facility] ([facility]) [address] [place] [address] 88225 chem 7 (lytes,bun,crea,gluc) on 2020-04-06 Anion gap [Moles/Vol] 15 7-17 mmol/L Normal 04-06-20 [facility] nter (82975) Comment: Performed By: #### PTISTR, P TT #### [facility] ([facility]) [address] [place] [address] 42703 Chloride [Moles/Vol] 103 98-108 mmol/L Normal 0 [facility] nter (17088) Comment: Performed By: #### PTISTR, P TT #### [facility] ([facility]) [address] [place] [address] 41766 CO2 [Moles/Vol] 23 22-30 mmol/L Normal 04-06-2020 [facility] nter (48004) Comment: Performed By: #### PTISTR, P TT #### [facility] ([facility]) [address] [place] [address] 59095 Creatinine [Mass/Vol] 1.28 0.70-1.30 mg/dL Normal 04-06-20 20 [facility] (61484) Comment: Performed By: #### PTISTR, P TT #### [facility] ([facility]) [address] [place] [address] 63934 EST GFR, 60 >=60 mL/min/1.73sqM Normal 04-06-20 20 [facility] (66743) Comment: Performed By: #### PTISTR, P TT #### [facility] ([facility]) [address] [place] [address] 22033 EST GFR,Non 56 >=60 mL/min/1.73sqM Low 04-06 [facility] (53168) Comment: Performed By: #### PTISTR, P TT #### [facility] ([facility]) [address] [place] [address] 86126 Glucose [Mass/Vol] 109 70-99 mg/dL High 04-06-2020 [facility] nter (74898) Comment: Performed By: #### PTISTR, P TT #### [facility] ([facility]) [address] [place] [address] 21972 Osmolality [Osmolality] 292 278-305 mOsm/kg Normal 2019 [facility] (77100) Comment: Performed By: #### PTISTR, P TT #### [facility] ([facility]) [address] [place] [address] 47688 Potassium [Moles/Vol] 4.3 3.5-5.0 mmol/L Normal 04-06-20 [facility] (69916) Comment: Performed By: #### PTISTR, P TT #### [facility] ([facility]) [address] [place] [address] 11434 Sodium [Moles/Vol] 137 133-143 mmol/L Normal 04-06-2020 [facility] nter (01918) Comment: Performed By: #### PTISTR, P TT #### [facility] ([facility]) [address] [place] [address] 82532 Urea nitrogen [Mass/Vol] 22 7-22 mg/dL Normal 04-06 [facility] nter (33400) Comment: Performed By: #### PTISTR, P TT #### [facility] ([facility]) [address] [place] [address] 12171 Urea nitrogen/Creatinine [Mass 17 mg/mg Normal 04-06-2020 [facility] ratio] [facility] (24882) Comment: Performed By: #### PTISTR, P TT #### [facility] ([facility]) [address] [place] [address] 83626 cbc and electronic diff on 2020-04-06 Basophils (Bld) [#/Vol] 0.11 0.00-0.09 K/uL High 2019 [facility] (45343) Comment: Performed By: #### PTISTR, P TT #### [facility] ([facility]) [address] [place] [address] 80561 Basophils/100 WBC (Bld) 0.9 % Normal 2019 [facility] nter (23483) Comment: Performed By: #### PTISTR, P TT #### [facility] ([facility]) [address] [place] [address] 19808 DIFF STATUS Electronic Differential Normal 03-10 [facility] (48639) Comment: Performed By: #### PTISTR, P TT #### [facility] ([facility]) [address] [place] [address] 77053 Eosinophils (Bld) 0.45 0.00-0.48 K/uL Normal 04-06-2020 [facility] [#/Vol] [facility] (34901) Comment: Performed By: #### PTISTR, P TT #### [facility] ([facility]) [address] [place] [address] 87048 Eosinophils/100 WBC (Bld) 3.8 % Normal 03-10 [facility] nter (26491) Comment: Performed By: #### PTISTR, P TT #### U [facility] ([facility]) [address] [place] [address] 82064 Hematocrit (Bld) [Volume 36.0 39.6-48.8 % Low 04-06 [facility] fraction] [facility] (70064) Comment: Performed By: #### PTISTR, P TT #### U [facility] ([facility]) [address] [place] [address] 58753 Hemoglobin (Bld) 11.6 13.4-16.8 g/dL Low 04-06-2020 [facility] [Mass/Vol] [facility] (41561) Comment: Performed By: #### PTISTR, P TT #### [facility] ([facility]) [address] [place] [address] 97201 Immature Grans % 0.8 % Normal 04-06-2020 [facility] (00 000) Comment: Performed By: #### PTISTR, P TT #### [facility] ([facility]) [address] [place] [address] 33265 Immature Grans Absolute 0.09 <=0.08 K/uL High 2019 [facility] nter (16539) Comment: Performed By: #### PTISTR, P TT #### [facility] ([facility]) [address] [place] [address] 88084 Lymphocytes (Bld) 1.24 0.83-3.57 K/uL Normal 04-06-2020 [facility] [#/Vol] [facility] (71213) Comment: Performed By: #### PTISTR, P TT #### [facility] ([facility]) [address] [place] [address] 99921 Lymphocytes/100 WBC (Bld) 10.4 % Normal 03-10 [facility] nter (35369) Comment: Performed By: #### PTISTR, P TT #### [facility] ([facility]) [address] [place] [address] 67291 MCV (RBC) [Entitic vol] 91.6 79.0-94.5 fL Normal 2019 [facility] (85742) Comment: Performed By: #### PTISTR, P TT #### [facility] ([facility]) [address] [place] [address] 08464 Mean Cell Hgb 29.5 26.1-33.3 pg Normal 04-06-2020 [facility] nter (44720) Comment: Performed By: #### PTISTR, P TT #### [facility] ([facility]) [address] [place] [address] 95448 Mean Cell Hgb Conc 32.2 31.9-36.5 g/dL Normal 04-06-2020 [facility] nter (32586) Comment: Performed By: #### PTISTR, P TT #### [facility] ([facility]) [address] [place] [address] 77413 Monocytes (Bld) [#/Vol] 1.08 0.24-0.93 K/uL High 2019 [facility] (45752) Comment: Performed By: #### PTISTR, P TT #### [facility] ([facility]) [address] [place] [address] 67353 Monocytes/100 WBC (Bld) 9.1 % Normal 2019 [facility] nter (31193) Comment: Performed By: #### PTISTR, P TT #### [facility] ([facility]) [address] [place] [address] 23987 Nucleated RBC (Bld) 0.0 <=0.2 /100 WBC Normal 04-06-2020 [facility] [#/Vol] [facility] (51247) Comment: Performed By: #### PTISTR, P TT #### [facility] ([facility]) [address] [place] [address] 13503 Platelet mean volume 11.2 8.7-12.3 fL Normal 0 [facility] (Bld) [Entitic vol] [facility] (96902) Comment: Performed By: #### PTISTR, P TT #### [facility] ([facility]) [address] [place] [address] 73470 Platelets (Bld) [#/Vol] 221 146-337 K/uL Normal 2019 [facility] (76891) Comment: Performed By: #### PTISTR, P TT #### [facility] ([facility]) [address] [place] [address] 89173 RBC (Bld) [#/Vol] 12.7 10.9-14.3 % Normal 04-06-2020 O [facility] nter (42186) Comment: Performed By: #### PTISTR, P TT #### [facility] ([facility]) [address] [place] [address] 47806 RBC (Bld) [#/Vol] 3.93 4.38-5.83 M/uL Low 04-06-2020 O [facility] nter (09541) Comment: Performed By: #### PTISTR, P TT #### [facility] ([facility]) [address] [place] [address] 27685 Segs + Bands Auto 75.0 % Normal 04-06-2020 O [facility] (00 000) Comment: Performed By: #### PTISTR, P TT #### [facility] ([facility]) [address] [place] [address] 83646 Segs + Bands,Absolute Auto 8.92 1.57-6.19 K/uL High [facility] [facility] (17931) Comment: Performed By: #### PTISTR, P TT #### [facility] ([facility]) [address] [place] [address] 84172 WBC (Bld) [#/Vol] 11.89 3.73-10.10 K/uL High 04-06-2020 [facility] nter (85268) Comment: Performed By: #### PTISTR, P TT #### [facility] ([facility]) [address] [place] [address] 78838 No panel information on 2020-04-06 Interpretation and Normal 04-06-2020 [facility] review of laboratory MEDICAL results CENTER (98137) Procalcitonin 0.14 <=0.50 ng/mL 04-06-2020 [facility] [Mass/Vol] [facility] (42621) In adult, critically 0 [facility] ill ICU patients, [place] DICAL studies have CENTER demonstrated that (4 3210) values <0.5 ng/mL represent a low risk of severe systemic infection/sepsis. In adult, critically ill ICU patients, studies have demonstrated that values >2.0 ng/mL represent a high risk of severe systemic infection/sepsis. Results <0.5 ng/mL do not exclude infection, as localized infections (without systemic signs) and early systemic infections (<6 hours) can be associated with such low levels. Several non-infectious clincal conditions such as willams, trauma, surgery and cardiogenic shock have been associated with elevated procalcitonin levels. All procalcitonin results should be interpreted in association with the patients clinical condition and all laboratory findings. The cut off levels noted above for this assay should not be applied to , emergency department or immunocompromised patients. Anion gap 15 7 - 17 mmol/L 04-06-2020 [facility] [Moles/Vol] [facility] (80873) Chloride [Moles/Vol] 103 98 - 108 mmol/L 0 [facility] (99640) CO2 [Moles/Vol] 23 22 - 30 mmol/L 04-06-2020 [facility] (64097) Creatinine 1.28 0.7 - mg/dL 04-06-2020 [facility] [Mass/Vol] 1.3 [facility] (43247) GFR/1.73 sq 56 >=60 mL/min/ Low 04-06-2020 [facility] M.predicted MDRD mL/min/1 {1.73_m MED ICAL (S/P/Bld) [Vol .73sqM 2} CENTE R rate/Area] (96558) GFR/1.73 sq >=60 >=60 mL/min/ 04-06-2020 [facility] M.predicted MDRD mL/min/1 {1.73_m MED ICAL (S/P/Bld) [Vol .73sqM 2} CENTE R rate/Area] (64719) Glucose [Mass/Vol] 109 70 - 99 mg/dL High 04-06-2020 [facility] ([facility]) Interpretation and Normal 04-06-2020 [facility] review of laboratory MEDICAL results [place] ([facility]) Interpretation and Abnormal 04-06-2020 [facility] review of laboratory MEDICAL results [place] ([facility]) Magnesium [Mass/Vol] 1.9 1.6 - mg/dL 0 [facility] 2.6 [facility] ([facility]) Osmolality Calc 292 OTH - 04-06-2020 [facility] [Osmolality] [facility] ([facility]) Phosphate [Mass/Vol] 4.0 2.2 - mg/dL 0 [facility] 4.6 [facility] ([facility]) Potassium 4.3 3.5 - 5 mmol/L 04-06-2020 [facility] [Moles/Vol] [facility] ([facility]) Sodium [Moles/Vol] 137 133 - mmol/L 04-06-2020 [facility] 143 [facility] ([facility]) Urea nitrogen 22 7 - 22 mg/dL 04-06-2020 [facility] [Mass/Vol] [facility] ([facility]) Urea 17 mg/mg 04-06-2020 [facility] nitrogen/Creatinine MEDICAL [Mass ratio] [place] ([facility]) Basophils (Bld) 0.11 0 - 0.09 K/uL High 04-06-2020 [facility] [#/Vol] [facility] ([facility]) Basophils/100 WBC 0.9 % 04-06-2020 [facility] (Bld) [facility] ([facility]) DIFF STATUS Electronic 04-06-2020 [facility] Differential [facility] ([facility]) Eosinophils (Bld) 0.45 0 - 0.48 K/uL 04-06-2020 [facility] [#/Vol] [facility] ([facility]) Eosinophils/100 WBC 3.8 % 04-06-2020 [facility] (Bld) [facility] ([facility]) Erythrocyte 12.7 10.9 - % 04-06-2020 [facility] distribution width 14.3 M EDICAL (RBC) [Ratio] [place] ([facility]) Hematocrit (Bld) 36.0 39.6 - % Low 04-06-2020 [facility] [Volume fraction] 48.8 [facility]) Hemoglobin (Bld) 11.6 13.4 - g/dL Low 04-06-2020 [facility] [Mass/Vol] 16.8 [facility] ([facility]) Immature 0.09 <=0.08 K/uL High 04-06-2020 [facility] granulocytes (Bld) M EDICAL [#/Vol] [place] ([facility]) Immature 0.8 % 04-06-2020 [facility] granulocytes/100 WBC MEDICAL (Bld) [place] ([facility]) Interpretation and Abnormal 04-06-2020 [facility] review of laboratory MEDICAL results [place] ([facility]) Lymphocytes (Bld) 1.24 0.83 - K/uL 04-06-2020 [facility] [#/Vol] 3.57 [facility] ([facility]) Lymphocytes/100 WBC 10.4 % 04-06-2020 [facility] (Bld) [facility] ([facility]) MCH (RBC) [Entitic 29.5 26.1 - pg 04-06-2020 [facility] mass] 33.3 [facility] ([facility]) MCHC (RBC) 32.2 31.9 - g/dL 04-06-2020 [facility] [Mass/Vol] 36.5 [facility] ([facility]) MCV (RBC) [Entitic 91.6 79 - fL 04-06-2020 [facility] vol] 94.5 [facility] ([facility]) Monocytes (Bld) 1.08 0.24 - K/uL High 04-06-2020 [facility] [#/Vol] 0.93 [facility] ([facility]) Monocytes/100 WBC 9.1 % 04-06-2020 [facility] (Bld) [facility] ([facility]) Neutrophils (Bld) 8.92 1.57 - K/uL High 04-06-2020 [facility] [#/Vol] 6.19 [facility] ([facility]) Nucleated RBC/100 0.0 <=0.2 % 04-06-2020 [facility] WBC (Bld) [Ratio] /100 [facility]BC [facility]) Platelet mean volume 11.2 8.7 - fL 0 [facility] (Bld) [Entitic vol] 12.3 [facility] (74970) Platelets (Bld) 221 146 - K/uL 04-06-2020 [facility] [#/Vol] 337 [facility] (08943) RBC (Bld) [#/Vol] 3.93 O[facility] - 10*6/uL Low 04-06-2020 [facility] (16526) Segmented 75.0 % 04-06-2020 [facility] neutrophils/100 WBC MEDICAL (Bld) CENTER (39200) WBC (Bld) [#/Vol] 11.89 3.73 - K/uL High 04-06-2020 [facility] 10.1 [facility] (13113) xr chest portable o n 2020-04-05 XR CHEST PORTABLE EXAM: XR CHEST PORTABLE, 04/05/2020 10:24 AM Normal 04-05-2020 [facility] COMPARISON: 04/01/2020. [facility] CLINICAL INDICATIONS: [facility] RELEVANT CLINICAL HISTORY: (91800) FINDINGS: (Adequate technique) Life Support Devices: None Chest Wall: Normal Bertha: Normal Mediastinum: Normal Pleural Spaces: No definite pleural effusion. No definite pn eumothorax. Lungs: Minor left basilar atelectasis. Hazy opacities with in the lung bases have improved. No new airspace disease. Cardiac Silhouette: Normal, without overall or specifi c chamber enlargement, or abnormal calcification Thoracic Aorta: Normal Pulmonary Vessels: Normal, without PVH IMPRESSION: Improved hazy airspace disease in the lower lung zones. No n ew airspace disease. 20 10:44 AM urinalysis on 04-05 Appearance (U) Clear Clear Normal 04-05-2020 [facility] (00 000) Comment: Performed By: #### PTISTR, P TT #### [facility] ([facility]) [address] [address] Bacteria LM.HPF (Urine ABSENT ABSENT Normal 020 [facility] sed) [#/Area] [facility] (98544) Comment: Performed By: #### PTISTR, P TT #### U [facility] ([facility]) [address] [place] [address] 08155 Blood Urine Negative Negative Normal 04-05-2020 [facility] nter (61514) Comment: Performed By: #### PTISTR, P TT #### U [facility] ([facility]) [address] [place] [address] 49739 Color (U) Yellow Yellow Normal 04-05-2020 [facility] (00 000) Comment: Performed By: #### PTISTR, P TT #### U [facility] ([facility]) [address] [place] [address] 65394 Glucose Ql (U) Negative Negative Normal 04-05-2020 [facility] nter (26760) Comment: Performed By: #### PTISTR, P TT #### U [facility] ([facility]) [address] [place] [address] 69040 Ketones Ql (U) Negative Negative Normal 04-05-2020 [facility] nter (28594) Comment: Performed By: #### PTISTR, P TT #### U [facility] ([facility]) [address] [place] [address] 90960 Leukocyte esterase Test Negative Negative Normal 2019 [facility] strip Ql (U) [facility] (50470) Comment: Performed By: #### PTISTR, P TT #### [facility] ([facility]) [address] [place] [address] 13882 Nitrites Urine Negative Negative Normal 04-05-2020 [facility]ter (20732) Comment: Performed By: #### PTISTR, P TT #### U [facility] ([facility]) [address] [place] [address] 05637 pH (U) 7.5 5.0-7.0 [pH] Abnormal 04-05-2020 [facility] (00 000) Comment: Performed By: #### PTISTR, P TT #### U [facility] ([facility]) [address] [place] [address] 01149 Protein (U) 30 mg/dL Negative mg/dL Abnormal 04-05-2020 [facility] ate [Mass/Vol] [facility] (70302) Comment: Performed By: #### PTISTR, P TT #### [facility] ([facility]) [address] [place] [address] 43287 RBC LM.HPF (Urine sed) 0-2 0-2 Normal 020 [facility] [#/Area] [facility] (96924) Comment: Performed By: #### PTISTR, P TT #### U [facility] ([facility]) [address] [place] [address] 11138 Specific [place] Urine 1.019 1.001-1.035 Normal 04-05 [facility] (08701) Comment: Performed By: #### PTISTR, P TT #### U [facility] ([facility]) [address] [place] [address] 56815 Squamous/Epithelial Cells 1/hpf = 1+ 1/hpf = 1+, Normal 0 04-05-2020 [facility] 2-5/hpf = 2+, Univer sity 0/hpf = 0+, [facility] (00 000) Comment: Performed By: #### PTISTR, P TT #### U [facility] ([facility]) [address] [place] [address] 83462 Urobilinogen Urine 0.2 E.U./dL 0.2-1.0 Normal 0 [facility] (77534) Comment: Performed By: #### PTISTR, P TT #### U [facility] ([facility]) [address] [place] [address] 01740 WBC LM.HPF (Urine sed) 0-5 0-5 Normal 020 [facility] [#/Area] Medical Ce nter (62451) Comment: Performed By: #### PTISTR, P TT #### U [facility] ([facility]) [address] [place] [address] 46644 phosphate, inorganic on 2020-04-05 Phosphorous 4.2 2.2-4.6 mg/dL Normal 04-05-2020 [facility] (00 000) Comment: Performed By: #### PTISTR, P TT #### [facility] ([facility]) [address] [place] [address] 85606 magnesium on 04-05 Magnesium [Mass/Vol] 2.0 1.6-2.6 mg/dL Normal 0 [facility] nter (47779) Comment: Performed By: #### PTISTR, P TT #### [facility] ([facility]) [address] [place] [address] 83170 chem 7 (lytes,bun,crea,gluc) on 2020-04-05 Anion gap [Moles/Vol] 14 7-17 mmol/L Normal 04-05-20 20 [facility] nter (24609) Comment: Performed By: #### PTISTR, P TT #### [facility] ([facility]) [address] [place] [address] 97784 Chloride [Moles/Vol] 101 98-108 mmol/L Normal 0 [facility] nter (40004) Comment: Performed By: #### PTISTR, P TT #### [facility] ([facility]) [address] [place] [address] 15248 CO2 [Moles/Vol] 25 22-30 mmol/L Normal 04-05-2020 [facility] nter (26648) Comment: Performed By: #### PTISTR, P TT #### U [facility] ([facility]) [address] [place] [address] 18536 Creatinine [Mass/Vol] 1.32 0.70-1.30 mg/dL High 04-05-20 20 [facility] (87942) Comment: Performed By: #### PTISTR, P TT #### [facility] ([facility]) [address] [place] [address] 06251 EST GFR, 60 >=60 mL/min/1.73sqM Normal 04-05-20 20 [facility] (59843) Comment: Performed By: #### PTISTR, P TT #### [facility] ([facility]) [address] [place] [address] 68531 EST GFR,Non 54 >=60 mL/min/1.73sqM Low 04-05 [facility] (96428) Comment: Performed By: #### PTISTR, P TT #### U [facility] ([facility]) [address] [place] [address] 79941 Glucose [Mass/Vol] 129 70-99 mg/dL High 04-05-2020 [facility] nter (25911) Comment: Performed By: #### PTISTR, P TT #### [facility] ([facility]) [address] [place] [address] 48729 Osmolality [Osmolality] 291 278-305 mOsm/kg Normal 2019 [facility] (90570) Comment: Performed By: #### PTISTR, P TT #### [facility] ([facility]) [address] [place] [address] 06944 Potassium [Moles/Vol] 4.1 3.5-5.0 mmol/L Normal 04-05-20 20 [facility] (83291) Comment: Performed By: #### PTISTR, P TT #### U [facility] ([facility]) [address] [place] [address] 18299 Sodium [Moles/Vol] 136 133-143 mmol/L Normal 04-05-2020 [facility] nter (88780) Comment: Performed By: #### PTISTR, P TT #### U [facility] ([facility]) [address] [place] [address] 04258 Urea nitrogen [Mass/Vol] 22 7-22 mg/dL Normal 04-05 [facility]ter (85761) Comment: Performed By: #### PTISTR, P TT #### [facility] ([facility]) [address] [place] [address] 29180 Urea nitrogen/Creatinine [Mass 17 mg/mg Normal 04-05-2020 [facility] ratio] [facility] (98496) Comment: Performed By: #### PTISTR, P TT #### [facility] ([facility]) [address] [place] [address] 33655 cbc and electronic diff on 2020-04-05 Basophils (Bld) [#/Vol] 0.09 0.00-0.09 K/uL Normal 2019 [facility] (66845) Comment: Performed By: #### PTISTR, P TT #### U [facility] ([facility]) [address] [place] [address] 52774 Basophils/100 WBC (Bld) 0.8 % Normal 2019 [facility] (29526) Comment: Performed By: #### PTISTR, P TT #### U [facility] ([facility]) [address] [place] [address] 59024 DIFF STATUS Electronic Differential Normal 03-09 [facility] (17501) Comment: Performed By: #### PTISTR, P TT #### U [facility] ([facility]) [address] [place] [address] 84065 Eosinophils (Bld) 0.41 0.00-0.48 K/uL Normal 04-05-2020 [facility] [#/Vol] [facility] (95472) Comment: Performed By: #### PTISTR, P TT #### [facility] ([facility]) [address] [place] [address] 95448 Eosinophils/100 WBC (Bld) 3.5 % Normal 03-09 [facility] (29913) Comment: Performed By: #### PTISTR, P TT #### [facility] ([facility]) [address] [place] [address] Hematocrit (Bld) [Volume 37.6 39.6-48.8 % Low 04-05 [facility] fraction] [facility] (88693) Comment: Performed By: #### PTISTR, P TT #### U [facility] ( [place]) [address] [place] [address] 96125 Hemoglobin (Bld) 12.2 13.4-16.8 g/dL Low 04-05-2020 [facility] [Mass/Vol] [facility] (05800) Comment: Performed By: #### PTISTR, P TT #### U [facility] ([facility]) [address] [place] [address] 95519 Immature Grans % 0.9 % Normal 04-05-2020 [facility] (00 000) Comment: Performed By: #### PTISTR, P TT #### [facility] ([facility]) [address] [place] [address] 94309 Immature Grans Absolute 0.10 <=0.08 K/uL High 2019 [facility] (71781) Comment: Performed By: #### PTISTR, P TT #### U [facility] ([facility]) [address] [place] [address] 06805 Lymphocytes (Bld) 1.33 0.83-3.57 K/uL Normal 04-05-2020 [facility] [#/Vol] [facility] (82936) Comment: Performed By: #### PTISTR, P TT #### U [facility] ([facility]) [address] [place] [address] 18401 Lymphocytes/100 WBC (Bld) 11.4 % Normal 03-09 [facility] nter (84778) Comment: Performed By: #### PTISTR, P TT #### U [facility] ([facility]) [address] [place] [address] 28225 MCV (RBC) [Entitic vol] 92.2 79.0-94.5 fL Normal 2019 [facility] (38531) Comment: Performed By: #### PTISTR, P TT #### [facility] ([facility]) [address] [place] [address] 27953 Mean Cell Hgb 29.9 26.1-33.3 pg Normal 04-05-2020 [facility] nter (79853) Comment: Performed By: #### PTISTR, P TT #### [facility] ([facility]) [address] [place] [address] 05372 Mean Cell Hgb Conc 32.4 31.9-36.5 g/dL Normal 04-05-2020 [facility] nter (83698) Comment: Performed By: #### PTISTR, P TT #### [facility] ([facility]) [address] [place] [address] 84045 Monocytes (Bld) [#/Vol] 0.92 0.24-0.93 K/uL Normal 2019 [facility] (43384) Comment: Performed By: #### PTISTR, P TT #### [facility] ([facility]) [address] [place] [address] 11267 Monocytes/100 WBC (Bld) 7.9 % Normal 2019 [facility] nter (06709) Comment: Performed By: #### PTISTR, P TT #### [facility] ([facility]) [address] [place] [address] 08112 Nucleated RBC (Bld) 0.0 <=0.2 /100 WBC Normal 04-05-2020 [facility] [#/Vol] [facility] (39569) Comment: Performed By: #### PTISTR, P TT #### [facility] ([facility]) [address] [place] [address] 67647 Platelet mean volume 11.2 8.7-12.3 fL Normal 0 [facility] (Bld) [Entitic vol] [facility] (60426) Comment: Performed By: #### PTISTR, P TT #### [facility] ([facility]) [address] [place] [address] 29940 Platelets (Bld) [#/Vol] 233 146-337 K/uL Normal 2019 [facility] (86084) Comment: Performed By: #### PTISTR, P TT #### U [facility] ([facility]) [address] [place] [address] 01083 RBC (Bld) [#/Vol] 12.8 10.9-14.3 % Normal 04-05-2020 O [facility] nter (21744) Comment: Performed By: #### PTISTR, P TT #### U [facility] ([facility]) [address] [place] [address] 32491 RBC (Bld) [#/Vol] 4.08 4.38-5.83 M/uL Low 04-05-2020 O [facility] nter (76288) Comment: Performed By: #### PTISTR, P TT #### [facility] ([facility]) [address] [place] [address] 89196 Segs + Bands Auto 75.5 % Normal 04-05-2020 O [facility] (00 000) Comment: Performed By: #### PTISTR, P TT #### [facility] ([facility]) [address] [place] [address] 33701 Segs + Bands,Absolute Auto 8.81 1.57-6.19 K/uL High [facility] (73782) Comment: Performed By: #### PTISTR, P TT #### U [facility] ([facility]) [address] [place] [address] 44761 WBC (Bld) [#/Vol] 11.66 3.73-10.10 K/uL High 04-05-2020 [facility] nter (58055) Comment: Performed By: #### PTISTR, P TT #### [facility] ([facility]) [address] [place] [address] 16487 No panel information on 2020-04-05 Appearance (U) Clear Clear 04-05-2020 [facility] (34018) Bacteria LM Ql ABSENT ABSENT 04-05-2020 [facility] (Urine sed) [facility] (96202) Color (U) Yellow Yellow 04-05-2020 [facility] (06497) Glucose Test strip Negative Negative 04-05-2020 [facility] (U) [Mass/Vol] [facility] (83685) Interpretation and Abnormal 04-05-2020 [facility] review of MEDICAL laboratory results [facility] (64511) Ketones (U) Negative Negative 04-05-2020 [facility] [Mass/Vol] [facility] (62433) Leukocyte esterase Negative Negative 04-05-2020 [facility] Test strip Ql (U) [facility] (84497) Nitrite Ql (U) Negative Negative 04-05-2020 [facility] (90149) pH (U) 7.5 5.0 - 7.0 [pH] Abnormal 04-05-2020 [facility] (12858) Protein (U) 30 mg/dL Negative mg/dL Abnormal 04-05-2020 [facility] [Mass/Vol] [facility] (33373) RBC (U) [#/Vol] Negative Negative /uL 04-05-2020 [facility] (57414) RBC LM.HPF (Urine 0-2 0 - 2 /HPF 04-05-2020 [facility]) [#/Area] [facility] (62333) Specific gravity 1.019 OTH - OTH 04-05-2020 [facility] (U) [Rel density] [facility] (73243) Squamous/Epithelia 1/hpf = 1+ 1/hpf = 1+, 04-05-20 20 [facility] l Cells 2-5/hpf = MEDICAL 2+, 0/hpf = CENTER 0+, ABSENT (18024) Urobilinogen (U) 0.2 E.U./dL 0.2 - 1.0 04-05-2020 [facility] [Mass/Vol] [facility] (94945) WBC LM.HPF (Urine 0-5 0 - 5 /HPF 04-05-2020 [facility] sed) [#/Area] [facility] (79977) IMPRESSION: 04-05-2020 [facility] Improved hazy MEDICA L airspace disease [place] TER in the lower lung (4 3210) zones. No new airspace disease. User, Interfaces - 0 10:47 AM EDT EXAM: XR CHEST PORTABLE, 04/05/2020 10:24 AM 04-05-2020 [facility] MEDICAL COMPARISON: 04/01/2020. CENTER (35477) CLINICAL INDICATIONS: fever RELEVANT CLINICAL HISTORY: FINDINGS: (Adequate technique) Life Support Devices: None Chest Wall: Normal Bertha: Normal Mediastinum: Normal Pleural Spaces: No definite pleural effusion. No definite pn eumothorax. Lungs: Minor left basilar atelectasis. Hazy opacities with in the lung bases have improved. No new airspace disease. Cardiac Silhouette: Normal, without overall or specifi c chamber enlargement, or abnormal calcification Thoracic Aorta: Normal Pulmonary Vessels: Normal, without PVH IMPRESSION IMPRESSION: Improved hazy airspace disease in the lower lung zones. No n ew airspace disease. 20 10:44 AM EXAM: XR CHEST 04-05-2020 [facility] PORTABLE, MEDICAL 04/05/2020 10:[address] AM COMPARISON: ([phone]) 04/01/2020. CLINICAL INDICATIONS: fever RELEVANT CLINICAL HISTORY: FINDINGS: (Adequate technique) Life Support Devices: None Chest Wall: Normal Bertha: Normal Mediastinum: Normal Pleural Spaces: No definite pleural effusion. No definite pneumothorax. Lungs: Minor left basilar atelectasis. Hazy opacities within the lung bases have improved. No new airspace disease. Cardiac Silhouette: Normal, without overall or specific chamber enlargement, or abnormal calcification Thoracic Aorta: Normal Pulmonary Vessels: Normal, without PVH Anion gap 14 7 - 17 mmol/L 04-05-2020 [facility] [Moles/Vol] [facility] ([id number]) Chloride 101 98 - 108 mmol/L 04-05-2020 [facility] [Moles/Vol] [facility] (95990) CO2 [Moles/Vol] 25 22 - 30 mmol/L 04-05-2020 [facility] ([id number]) Creatinine 1.32 0.7 - 1.3 mg/dL High 04-05-2020 [facility] [Mass/Vol] [facility] ([id number]) GFR/1.73 sq 54 >=60 mL/min Low 04-05-2020 [facility] M.predicted MDRD mL/min/1.73s /{1.73 MEDICAL (S/P/Bld) [Vol qM _m2} [facility] rate/Area] ([id number]) GFR/1.73 sq >=60 >=60 mL/min 04-05-2020 [facility] M.predicted MDRD mL/min/1.73s /{1.73 MEDICAL (S/P/Bld) [Vol qM _m2} [facility] rate/Area] (82072) Glucose [Mass/Vol] 129 70 - 99 mg/dL High 04-05-2020 [facility] ([facility]) Interpretation and Abnormal [facility] laboratory results [facility] ([id number]) Interpretation and Normal 04-05-2020 [facility] review of MEDICAL laboratory results [facility] ([id number]) Magnesium 2.0 1.6 - 2.6 mg/dL 04-05-2020 [facility] [Mass/Vol] [facility] (87832) Osmolality Calc 291 OTH - OTH 04-05-2020 [facility] [Osmolality] [facility] (89716) Phosphate 4.2 2.2 - 4.6 mg/dL 04-05-2020 [facility] [Mass/Vol] [facility] (81079) Potassium 4.1 3.5 - 5 mmol/L 04-05-2020 [facility] [Moles/Vol] [facility] (57531) Sodium [Moles/Vol] 136 133 - 143 mmol/L 04-05-2020 [facility] (25992) Urea nitrogen 22 7 - 22 mg/dL 04-05-2020 [facility] [Mass/Vol] [facility] (61522) Urea 17 mg/mg 04-05-2020 [facility] nitrogen/Creatinin M EDICAL e [Mass ratio] [facility] (80109) Basophils (Bld) 0.09 0 - 0.09 K/uL 04-05-2020 [facility] [#/Vol] [facility] (21714) Basophils/100 WBC 0.8 % 04-05-2020 [facility] (Bld) [facility] ([id number]) DIFF STATUS Electronic 04-05-2020 [facility] Differential [facility] ([facility]) Eosinophils (Bld) 0.41 0 - 0.48 K/uL 04-05-2020 [facility] [#/Vol] [facility] (72559) Eosinophils/100 3.5 % 04-05-2020 [facility] WBC (Bld) [facility] ([facility]) Erythrocyte 12.8 10.9 - 14.3 % 04-05-2020 [facility] distribution width M EDICAL (RBC) [Ratio] [facility] ([facility]) Hematocrit (Bld) 37.6 39.6 - 48.8 % Low 04-05-2020 [facility] [Volume fraction] ME DICAL [facility] (02360) Hemoglobin (Bld) 12.2 13.4 - 16.8 g/dL Low 04-05-2020 [facility] [Mass/Vol] [facility] (63836) Immature 0.10 <=0.08 K/uL High 04-05-2020 [facility] granulocytes (Bld) M JACQUIEICAL [#/Vol] [facility] (74541) Immature 0.9 % 04-05-2020 [facility] granulocytes/100 MED ICAL WBC (Bld) [facility] ([facility]) Interpretation and Abnormal 04-05-2020 [facility] review of MEDICAL laboratory results [facility] ([id number]) Lymphocytes (Bld) 1.33 0.83 - 3.57 K/uL 04-05-2020 [facility] [#/Vol] [facility] (51074) Lymphocytes/100 11.4 % 04-05-2020 [facility] WBC (Bld) [facility] (18545) MCH (RBC) [Entitic 29.9 26.1 - 33.3 pg 0 [facility] mass] [facility] (73845) MCHC (RBC) 32.4 31.9 - 36.5 g/dL 04-05-2020 [facility] [Mass/Vol] [facility] (02972) MCV (RBC) [Entitic 92.2 79 - 94.5 fL 04-05-2020 [facility] vol] [facility] (69542) Monocytes (Bld) 0.92 0.24 - 0.93 K/uL 04-05-2020 [facility] [#/Vol] [facility] (62194) Monocytes/100 WBC 7.9 % 04-05-2020 [facility] (Bld) [facility] (61009) Neutrophils (Bld) 8.81 1.57 - 6.19 K/uL High 04-05-2020 [facility] [#/Vol] [facility] (82680) Nucleated RBC/100 0.0 <=0.2 /100 % 04-05-2020 [facility] WBC (Bld) [Ratio] WBC ME DICAL [facility] (86156) Platelet mean 11.2 8.7 - 12.3 fL 04-05-2020 [facility] volume (Bld) MEDICAL [Entitic vol] [facility] (53225) Platelets (Bld) 233 146 - 337 K/uL 04-05-2020 [facility] [#/Vol] [facility] (36504) RBC (Bld) [#/Vol] 4.08 OTH - OTH 10*6/u Low 04-05-2020 [facility] L [facility] ([id number]) Segmented 75.5 % 04-05-2020 [facility] neutrophils/100 MEDI ERNST WBC (Bld) [facility] (43315) WBC (Bld) [#/Vol] 11.66 3.73 - 10.1 K/uL High 04-05-2020 [facility] ([id number]) urine culture on 27-03-28 Bacteria identified Cx Nom No Growth Normal [facility] () [facility] ([id number]) Comment: Order Comment: Nails top vacu tainer. Urine must be to the fill line to process (4mls). If minimum v olume, send urine in a yellow top vacutainer tube.For straight cath urine s, a cut off of equal or greater than 10,000 CFU/mL is considered signifi cant. Performed By: #### PTISTR, P TT #### [facility] ([place]) [address] [place] [address] 91821 phosphate, inorganic on 2020-04-04 Phosphorous 4.1 2.2-4.6 mg/dL Normal 04-04-2020 [facility] (00 000) Comment: Performed By: #### PTISTR, P TT #### [facility] ([facility]) [address] [place] [address] Phosphorous 4.0 2.2-4.6 mg/dL Normal 04-04-2020 [facility] (00 000) Comment: Performed By: #### PTISTR, P TT #### [facility] ([facility]) [address] [place] [address] 53138 novel coronavirus pcr on 2020-04-04 SARS-COV-2 NOT DETECTED NOT DETECTED Normal 04-04-2020 [facility] ([id number]) Comment: Order Comment: Viral transpo rt media (clam dredger with pink fluid) or BAL specimen - Collection must b e done while wearing N-95 mask, eye protection, gown and gloves. Please labe l ALL specimens as 2018- rule out and deliver by hand.This test wa s performed using real time PCR and has been approved for the qualitative detection of SARS-CoV-2 nucleic acid. The test has been authorized by the [facility] under an emergency use authorization for use by authorized laboratories. Result Comment: Negative res ults do not preclude SARS-CoV-2 infection and should not be used as the so le basis for treatment or other patient management decisions. Optimu m specimen types and timing for peak viral levels during infections cau sed by SARS-CoV-2 has not been determined. The possibility of a false negat anastacio result should especially be considered if the patient's recent exposur es or clinical presentation suggest that SARS-CoV-2 infection is prob able, and diagnostic tests for other causes of illness (e.g., other respira tory illness) are negative. Collection of a new specimen and re-testing may be necessary if the patient is critically ill or clinically deteriorating. Performed By: #### PTISTR, P TT #### [facility] ([facility]) [address] [place] [address] 79796 magnesium on 04-04 Magnesium [Mass/Vol] 2.0 1.6-2.6 mg/dL Normal 0 [facility] nter (35634) Comment: Performed By: #### PTISTR, P TT #### [facility] ([facility]) [address] [place] [address] 04167 Magnesium [Mass/Vol] 1.9 1.6-2.6 mg/dL Normal 0 [facility] nter (60483) Comment: Performed By: #### PTISTR, P TT #### [facility] ([facility]) [address] [place] [address] 59893 chem 7 (lytes,bun,crea,gluc) on 2020-04-04 Anion gap [Moles/Vol] 14 7-17 mmol/L Normal 04-04-20 20 [facility] nter (93515) Comment: Performed By: #### PTISTR, P TT #### [facility] ([facility]) [address] [place] [address] 80186 Chloride [Moles/Vol] 101 98-108 mmol/L Normal 0 [facility] nter (26091) Comment: Performed By: #### PTISTR, P TT #### [facility] ([facility]) [address] [place] [address] 69762 CO2 [Moles/Vol] 24 22-30 mmol/L Normal 04-04-2020 [facility] nter (55897) Comment: Performed By: #### PTISTR, P TT #### [facility] ([facility]) [address] [place] [address] 77957 Creatinine [Mass/Vol] 1.06 0.70-1.30 mg/dL Normal 04-04-20 20 [facility] (01427) Comment: Performed By: #### PTISTR, P TT #### [facility] ([facility]) [address] [place] [address] 07851 EST GFR, 60 >=60 mL/min/1.73sqM Normal 04-04-20 [facility] (97110) Comment: Performed By: #### PTISTR, P TT #### [facility] ([facility]) [address] [place] [address] 28353 EST GFR,Non 60 >=60 mL/min/1.73sqM Normal 04-04 [facility] (84006) Comment: Performed By: #### PTISTR, P TT #### [facility] ([facility]) [address] [place] [address] 22061 Glucose [Mass/Vol] 110 70-99 mg/dL High 04-04-2020 [facility] (09597) Comment: Performed By: #### PTISTR, P TT #### [facility] ([facility]) [address] [place] [address] 33222 Osmolality [Osmolality] 288 278-305 mOsm/kg Normal 2019 [facility] (38590) Comment: Performed By: #### PTISTR, P TT #### [facility] ([facility]) [address] [place] [address] 36784 Potassium [Moles/Vol] 4.3 3.5-5.0 mmol/L Normal 04-04-20 20 [facility] (89414) Comment: Performed By: #### PTISTR, P TT #### [facility] ([facility]) [address] [place] [address] 24940 Sodium [Moles/Vol] 135 133-143 mmol/L Normal 04-04-2020 [facility] nter (20358) Comment: Performed By: #### PTISTR, P TT #### [facility] ([facility]) [address] [place] [address] 77578 Urea nitrogen [Mass/Vol] 22 7-22 mg/dL Normal 04-04 [facility] nter (20870) Comment: Performed By: #### PTISTR, P TT #### [facility] ([facility]) [address] [place] [address] 01896 Urea nitrogen/Creatinine [Mass 21 mg/mg Normal 04-04-2020 [facility] ratio] [facility] (37518) Comment: Performed By: #### PTISTR, P TT #### [facility] ([facility]) [address] [place] [address] 48876 Anion gap [Moles/Vol] 15 7-17 mmol/L Normal 04-04-20 20 [facility] nter (75882) Comment: Performed By: #### PTISTR, P TT #### [facility] ([facility]) [address] [place] [address] 76862 Chloride [Moles/Vol] 102 98-108 mmol/L Normal 0 [facility] nter (38199) Comment: Performed By: #### PTISTR, P TT #### [facility] ([facility]) [address] [place] [address] 38259 CO2 [Moles/Vol] 25 22-30 mmol/L Normal 04-04-2020 [facility] nter (77855) Comment: Performed By: #### PTISTR, P TT #### [facility] ([facility]) [address] [place] [address] 12320 Creatinine [Mass/Vol] 1.10 0.70-1.30 mg/dL Normal 04-04-20 20 [facility] (52561) Comment: Performed By: #### PTISTR, P TT #### [facility] ([facility]) [address] [place] [address] 67013 EST GFR, 60 >=60 mL/min/1.73sqM Normal 04-04-20 20 [facility] (80816) Comment: Performed By: #### PTISTR, P TT #### [facility] ([facility]) [address] [place] [address] 30550 EST GFR,Non 60 >=60 mL/min/1.73sqM Normal 04-04 [facility] (29452) Comment: Performed By: #### PTISTR, P TT #### [facility] ([facility]) [address] [place] [address] 41118 Glucose [Mass/Vol] 136 70-99 mg/dL High 04-04-2020 [facility] nter (63516) Comment: Performed By: #### PTISTR, P TT #### [facility] ([facility]) [address] [place] [address] 15568 Osmolality [Osmolality] 294 278-305 mOsm/kg Normal 2019 [facility] (46279) Comment: Performed By: #### PTISTR, P TT #### [facility] ([facility]) [address] [place] [address] 23994 Potassium [Moles/Vol] 4.4 3.5-5.0 mmol/L Normal 04-04-20 [facility] (16881) Comment: Performed By: #### PTISTR, P TT #### [facility] ([facility]) [address] [place] [address] 74076 Sodium [Moles/Vol] 138 133-143 mmol/L Normal 04-04-2020 [facility] nter (12416) Comment: Performed By: #### PTISTR, P TT #### [facility] ([facility]) [address] [place] [address] 18897 Urea nitrogen [Mass/Vol] 19 7-22 mg/dL Normal 04-04 [facility] nter (34226) Comment: Performed By: #### PTISTR, P TT #### [facility] ([facility]) [address] [place] [address] 61161 Urea nitrogen/Creatinine [Mass 17 mg/mg Normal 04-04-2020 [facility] ratio] [facility] (36027) Comment: Performed By: #### PTISTR, P TT #### [facility] ([facility]) [address] [place] [address] 60610 cbc and electronic diff on 2020-04-04 Basophils (Bld) [#/Vol] 0.07 0.00-0.09 K/uL Normal 2019 [facility] (49746) Comment: Performed By: #### PTISTR, P TT #### [facility] ([facility]) [address] [place] [address] 49351 Basophils/100 WBC (Bld) 0.6 % Normal 2019 [facility] (59422) Comment: Performed By: #### PTISTR, P TT #### [facility] ([facility]) [address] [place] [address] 56078 DIFF STATUS Electronic Differential Normal 03-09 [facility] (85113) Comment: Performed By: #### PTISTR, P TT #### [facility] ([facility]) [address] [place] [address] 82674 Eosinophils (Bld) 0.44 0.00-0.48 K/uL Normal 04-04-2020 [facility] [#/Vol] [facility] (25257) Comment: Performed By: #### PTISTR, P TT #### [facility] ([facility]) [address] [place] [address] 31869 Eosinophils/100 WBC (Bld) 3.5 % Normal 03-09 [facility] (55098) Comment: Performed By: #### PTISTR, P TT #### [facility] ([facility]) [address] [place] [address] 74051 Hematocrit (Bld) [Volume 39.3 39.6-48.8 % Low 04-04 [facility] fraction] [facility] (24896) Comment: Performed By: #### PTISTR, P TT #### [facility] ([facility]) [address] [place] [address] 43024 Hemoglobin (Bld) 12.8 13.4-16.8 g/dL Low 04-04-2020 [facility] [Mass/Vol] [facility] (35589) Comment: Performed By: #### PTISTR, P TT #### [facility] ([facility]) [address] [place] [address] 40299 Immature Grans % 0.8 % Normal 04-04-2020 [facility] (00 000) Comment: Performed By: #### PTISTR, P TT #### [facility] ([facility]) [address] [place] [address] 17770 Immature Grans Absolute 0.10 <=0.08 K/uL High 2019 [facility] nter (59893) Comment: Performed By: #### PTISTR, P TT #### [facility] ([facility]) [address] [place] [address] 18880 Lymphocytes (Bld) 1.47 0.83-3.57 K/uL Normal 04-04-2020 [facility] [#/Vol] [facility] (46778) Comment: Performed By: #### PTISTR, P TT #### [facility] ([facility]) [address] [place] [address] 55187 Lymphocytes/100 WBC (Bld) 11.8 % Normal 03-09 [facility] nter (16934) Comment: Performed By: #### PTISTR, P TT #### [facility] ([facility]) [address] [place] [address] 52584 MCV (RBC) [Entitic vol] 91.2 79.0-94.5 fL Normal 2019 [facility] (59037) Comment: Performed By: #### PTISTR, P TT #### [facility] ([facility]) [address] [place] [address] 55090 Mean Cell Hgb 29.7 26.1-33.3 pg Normal 04-04-2020 [facility] nter (26815) Comment: Performed By: #### PTISTR, P TT #### [facility] ([facility]) [address] [place] [address] 55943 Mean Cell Hgb Conc 32.6 31.9-36.5 g/dL Normal 04-04-2020 [facility] nter (76411) Comment: Performed By: #### PTISTR, P TT #### [facility] ([facility]) [address] [place] [address] 77669 Monocytes (Bld) [#/Vol] 1.22 0.24-0.93 K/uL High 2019 [facility] (46439) Comment: Performed By: #### PTISTR, P TT #### [facility] ([facility]) [address] [place] [address] 16585 Monocytes/100 WBC (Bld) 9.8 % Normal 2019 [facility] nter (43930) Comment: Performed By: #### PTISTR, P TT #### [facility] ([facility]) [address] [place] [address] 18516 Nucleated RBC (Bld) 0.0 <=0.2 /100 WBC Normal 04-04-2020 [facility] [#/Vol] [facility] (55653) Comment: Performed By: #### PTISTR, P TT #### [facility] ([facility]) [address] [place] [address] 60152 Platelet mean volume 11.4 8.7-12.3 fL Normal 0 [facility] (Bld) [Entitic vol] [facility] (30021) Comment: Performed By: #### PTISTR, P TT #### [facility] ([facility]) [address] [place] [address] 91675 Platelets (Bld) [#/Vol] 208 146-337 K/uL Normal 2019 [facility] (31911) Comment: Performed By: #### PTISTR, P TT #### [facility] ([facility]) [address] [place] [address] 02891 RBC (Bld) [#/Vol] 4.31 4.38-5.83 M/uL Low 04-04-2020 O [facility] nter (44795) Comment: Performed By: #### PTISTR, P TT #### [facility] ([facility]) [address] [place] [address] 11972 RBC (Bld) [#/Vol] 13.0 10.9-14.3 % Normal 04-04-2020 [facility] nter (95496) Comment: Performed By: #### PTISTR, P TT #### [facility] ([facility]) [address] [place] [address] 30943 Segs + Bands Auto 73.5 % Normal 04-04-2020 [facility] (00 000) Comment: Performed By: #### PTISTR, P TT #### [facility] ([facility]) [address] [place] [address] 92007 Segs + Bands,Absolute Auto 9.11 1.57-6.19 K/uL High [facility] (69555) Comment: Performed By: #### PTISTR, P TT #### [facility] ([facility]) [address] [place] [address] 32442 WBC (Bld) [#/Vol] 12.41 3.73-10.10 K/uL High 04-04-2020 [facility] nter (87385) Comment: Performed By: #### PTISTR, P TT #### [facility] ([facility]) [address] [place] [address] 45456 blood culture on 27-03-28 Bacteria identified Cx NO GROWTH DAY 5 OF Normal 04-04-2020 [facility] Nom (Bld) 5 [facility] (50213) Comment: Order Comment: 2 Bottles (1 Set - consists of 1 Aerobic (blue) bottle and 1 Anaerobic (purple) bottle) - 1st Peripheral DrawFor syringe method draw:If able to obtain adequate samp le (20 ml) inoculate anaerobic bottle firstIf inadequate sample obtained ( less than 20 ml) inoculate aerobic bottle firstFor vacutainer method d raw: Fill aerobic bottle first, then anaerobic Performed By: #### PTISTR, P TT #### [facility] ([facility]) [address] [place] [address] 98780 No panel information on 2020-04-04 Anion gap 14 7 - 17 mmol/L 04-04-[address] [facility] [Moles/Vol] [facility] (42514) Chloride [Moles/Vol] 101 98 - 108 mmol/L 0 [facility] (21183) CO2 [Moles/Vol] 24 22 - 30 mmol/L 04-04-2020 [facility] (23844) Creatinine 1.06 0.7 - 1.3 mg/dL 04-04-2020 [facility] [Mass/Vol] [facility] (33735) GFR/1.73 sq >=60 >=60 mL/min/{1.7 04-04-2020 [facility] Coradopredicted MDRD mL/min/1.73sq 3_m2} MEDICAL (S/P/Bld) [Vol M [facility]ENT[facility] R rate/Area] (55956) Glucose [Mass/Vol] 110 70 - 99 mg/dL High 04-04-2020 [facility] (09167) Interpretation and Abnormal 04-04-2020 [facility] review of laboratory MEDICAL results [facility] (01884) Interpretation and Normal 04-04-2020 [facility] review of laboratory MEDICAL results [facility] (43886) Magnesium [Mass/Vol] 2.0 1.6 - 2.6 mg/dL 0 [facility] (16427) Osmolality Calc 288 OTH - OTH 04-04-2020 [facility] [Osmolality] [facility] (59068) Phosphate [Mass/Vol] 4.1 2.2 - 4.6 mg/dL 0 [facility] (24858) Potassium 4.3 3.5 - 5 mmol/L 04-04-[address] [facility] [Moles/Vol] [facility] (32931) Sodium [Moles/Vol] 135 133 - 143 mmol/L 04-04-2020 [facility] (03609) Urea nitrogen 22 7 - 22 mg/dL 04-04-2020 [facility] [Mass/Vol] [facility] (69898) Urea 21 mg/mg 04-04-[address] [facility] nitrogen/Creatinine [facility] [Mass ratio] [facility] (82061) Interpretation and Normal 04-04-2020 [facility] review of laboratory MEDICAL results [facility] (24891) SARS-COV-2 NOT DETECTED NOT DETECTED 04-04-2020 [facility] (86973) Comment: Negative results do not prec lude SARS-CoV-2 infection and should not be used as the sole basis for treatm ent or other patient management decisions. Optimum specimen types and t iming for peak viral levels during infections caused by SARS-CoV-2 has not been determined. The possibility of a false negative result should espec ially be considered if the patient's recent exposures or clinical presen tation suggest that SARS-CoV-2 infection is probable, and diagnostic blaze ts for other causes of illness (e.g., other respiratory illness) are neg ative. Collection of a new specimen and re-testing may be necessary if the patient is critically ill or clinically deteriorating. This test was 04-04-2020 [facility] performed using [employer] real time PCR and CE NTER has been approved (4 5920) for the qualitative detection of SARS-CoV-2 nucleic acid. The test has been authorized by the FDA under an emergency use authorization for use by authorized laboratories. Anion gap 15 7 - 17 mmol/L 04-04-[address] [facility] [Moles/Vol] [facility] (71296) Chloride [Moles/Vol] 102 98 - 108 mmol/L 0 [facility] (28713) CO2 [Moles/Vol] 25 22 - 30 mmol/L 04-04-2020 [facility] ([id number]) Creatinine 1.10 0.7 - 1.3 mg/dL 04-04-2020 [facility] [Mass/Vol] [facility] ([facility]) GFR/1.73 sq >=60 >=60 mL/min/{ 04-04-2020 [facility] M.predicted MDRD mL/min/1. 1.73_m2} MED [facility]AL (S/P/Bld) [Vol 73sqM CENT[facility] R rate/Area] ([facility]) Glucose [Mass/Vol] 136 70 - 99 mg/dL High 04-04-2020 [facility] ([facility]) Interpretation and Abnormal 04-04-2020 [facility] review of laboratory MEDICAL results [place] ([facility]) Interpretation and Normal 04-04-2020 [facility] review of laboratory [facility] results [place] ([facility]) Magnesium [Mass/Vol] 1.9 1.6 - 2.6 mg/dL 0 [facility] ([facility]) Osmolality Calc 294 OTH - OTH 04-04-2020 [facility] [Osmolality] [facility] ([facility]) Phosphate [Mass/Vol] 4.0 2.2 - 4.6 mg/dL 0 [facility] ([facility]) Potassium 4.4 3.5 - 5 mmol/L 04-04-2020 [facility] [Moles/Vol] [facility] ([facility]) Sodium [Moles/Vol] 138 133 - 143 mmol/L 04-04-2020 [facility] ([facility]) Urea nitrogen 19 7 - 22 mg/dL 04-04-2020 [facility] [Mass/Vol] [facility] ([id number]) Urea 17 mg/mg 04-04-2020 [facility] nitrogen/Creatinine [facility] [Mass ratio] [place] ([facility]) Basophils (Bld) 0.07 0 - 0.09 K/uL 04-04-2020 [facility] [#/Vol] [facility] ([facility]) Basophils/100 WBC 0.6 % 04-04-2020 [facility] (Bld) [facility] ([facility]) DIFF STATUS Electronic 04-04-2020 [facility] Differential [facility] ([facility]) Eosinophils (Bld) 0.44 0 - 0.48 K/uL 04-04-2020 [facility] [#/Vol] [facility] ([facility]) Eosinophils/100 WBC 3.5 % 04-04-2020 [facility] (Bld) [facility] ([facility]) Erythrocyte 13.0 10.9 - % 04-04-2020 [facility] distribution width 14.3 [facility] (RBC) [Ratio] CENTER ([facility]) Hematocrit (Bld) 39.3 39.6 - % Low 04-04-2020 [facility] [Volume fraction] 48.8 [facility] ([facility]) Hemoglobin (Bld) 12.8 g/dL Low 04-04-2020 [facility] [Mass/Vol] [facility] ([facility]) Immature 0.10 <=0.08 K/uL High 04-04-2020 [facility] granulocytes (Bld) M [facility] [#/Vol] [place] ([facility]) Immature 0.8 % 04-04-2020 [facility] granulocytes/100 WBC MEDICAL (Bld) [place] ([facility]) Interpretation and Abnormal 04-04-2020 [facility] review of laboratory MEDICAL results [place] ([facility]) Lymphocytes (Bld) 1.47 0.83 - K/uL 04-04-2020 [facility] [#/Vol] 3.57 [facility] ([facility]) Lymphocytes/100 WBC 11.8 % 04-04-2020 [facility] (Bld) [facility] ([facility]) MCH (RBC) [Entitic 29.7 26.1 - pg 04-04-2020 [facility] mass] 33.3 [facility] ([facility]) MCHC (RBC) 32.6 31.9 - g/dL 04-04-2020 [facility] [Mass/Vol] 36.5 [facility] ([facility]) MCV (RBC) [Entitic 91.2 79 - 94.5 fL 04-04-2020 [facility] vol] [facility] ([facility]) Monocytes (Bld) 1.22 0.24 - K/uL High 04-04-2020 [facility] [#/Vol] 0.93 [facility] ([facility]) Monocytes/100 WBC 9.8 % 04-04-2020 [facility] (Bld) [facility] ([facility]) Neutrophils (Bld) 9.11 1.57 - K/uL High 04-04-2020 [facility] [#/Vol] 6.19 [facility] (35237) Nucleated RBC/100 0.0 <=0.2 % 04-04-2020 [facility] WBC (Bld) [Ratio] /100 WBC [facility] (88140) Platelet mean volume 11.4 8.7 - fL 0 [facility] (Bld) [Entitic vol] 12.3 [facility] (82648) Platelets (Bld) 208 146 - 337 K/uL 04-04-2020 [facility] [#/Vol] [facility] (45399) RBC (Bld) [#/Vol] 4.31 OTH - OTH 10*6/uL Low 04-04-2020 [facility]68655[facility] Segmented 73.5 % 04-04-2020 [facility] neutrophils/100 WBC [facility] (Bld) [place] (49114) WBC (Bld) [#/Vol] 12.41 3.73 - K/uL High 04-04-2020 [facility] 10.1 [facility] (90268) phosphate, inorganic on 2020-04-03 Phosphorous 4.3 2.2-4.6 mg/dL Normal 04-03-2020 [facility] (00 000) Comment: Performed By: #### PTISTR, P TT #### [facility] ([facility]) [address] [address] Phosphorous 4.2 2.2-4.6 mg/dL Normal 04-03-2020 [facility] (00 000) Comment: Performed By: #### PTISTR, P TT #### [facility] ([facility]) [address] [place] [address] 46913 magnesium on 2019-04-03 Magnesium [Mass/Vol] 2.0 1.6-2.6 mg/dL Normal 0 [facility] nter (86054) Comment: Performed By: #### PTISTR, P TT #### [facility] ([facility]) [address] [place] [address] 73690 Magnesium [Mass/Vol] 2.0 1.6-2.6 mg/dL Normal 0 [facility] nter (49868) Comment: Performed By: #### PTISTR, P TT #### [facility] ([facility]) [address] [place] [address] 59849 chem 7 (lytes,bun,crea,gluc) on 2020-04-03 Anion gap [Moles/Vol] 17 7-17 mmol/L Normal 04-03-20 20 [facility] nter (74257) Comment: Performed By: #### PTISTR, P TT #### [facility] ([facility]) [address] [place] [address] 08666 Chloride [Moles/Vol] 102 98-108 mmol/L Normal 0 [facility] nter (02901) Comment: Performed By: #### PTISTR, P TT #### [facility] ([facility]) [address] [place] [address] 83044 CO2 [Moles/Vol] 21 22-30 mmol/L Low 04-03-2020 [facility] (00 000) Comment: Performed By: #### PTISTR, P TT #### [facility] ([facility]) [address] [place] [address] 82809 Creatinine [Mass/Vol] 1.01 0.70-1.30 mg/dL Normal 04-03-20 20 [facility] (28529) Comment: Performed By: #### PTISTR, P TT #### [facility] ([facility]) [address] [place] [address] 56052 EST GFR, 60 >=60 mL/min/1.73sqM Normal 04-03-20 20 [facility] (61820) Comment: Performed By: #### PTISTR, P TT #### [facility] ([facility]) [address] [place] [address] 54131 EST GFR,Non 60 >=60 mL/min/1.73sqM Normal 04-03 [facility] (70220) Comment: Performed By: #### PTISTR, P TT #### [facility] ([facility]) [address] [place] [address] 24060 Glucose [Mass/Vol] 105 70-99 mg/dL High 04-03-2020 [facility] nter (39497) Comment: Performed By: #### PTISTR, P TT #### [facility] ([facility]) [address] [place] [address] 88694 Osmolality [Osmolality] 288 278-305 mOsm/kg Normal 2019 [facility] (60690) Comment: Performed By: #### PTISTR, P TT #### [facility] ([facility]) [address] [place] [address] 01623 Potassium [Moles/Vol] 4.6 3.5-5.0 mmol/L Normal 04-03-20 20 [facility] (21794) Comment: Performed By: #### PTISTR, P TT #### [facility] ([facility]) [address] [place] [address] 51203 Sodium [Moles/Vol] 135 133-143 mmol/L Normal 04-03-2020 [facility] nter (54713) Comment: Performed By: #### PTISTR, P TT #### [facility] ([facility]) [address] [place] [address] 28098 Urea nitrogen [Mass/Vol] 20 7-22 mg/dL Normal 04-03 [facility] nter (19901) Comment: Performed By: #### PTISTR, P TT #### [facility] ([facility]) [address] [place] [address] 02617 Urea nitrogen/Creatinine [Mass 20 mg/mg Normal 04-03-2020 [facility] ratio] [facility] (32911) Comment: Performed By: #### PTISTR, P TT #### [facility] ([facility]) [address] [place] [address] 52827 Anion gap [Moles/Vol] 14 7-17 mmol/L Normal 04-03-20 20 [facility] nter (82310) Comment: Performed By: #### PTISTR, P TT #### [facility] ([facility]) [address] [place] [address] 62916 Chloride [Moles/Vol] 102 98-108 mmol/L Normal 0 [facility] nter (21422) Comment: Performed By: #### PTISTR, P TT #### [facility] ([facility]) [address] [place] [address] 77178 CO2 [Moles/Vol] 24 22-30 mmol/L Normal 04-03-2020 [facility] nter (42207) Comment: Performed By: #### PTISTR, P TT #### [facility] ([facility]) [address] [place] [address] 30525 Creatinine [Mass/Vol] 1.03 0.70-1.30 mg/dL Normal 04-03-20 20 [facility] (97952) Comment: Performed By: #### PTISTR, P TT #### [facility] ([facility]) [address] [place] [address] 30701 EST GFR, 60 >=60 mL/min/1.73sqM Normal 04-03-20 20 [facility] (29639) Comment: Performed By: #### PTISTR, P TT #### [facility] ([facility]) [address] [place] [address] 06743 EST GFR,Non 60 >=60 mL/min/1.73sqM Normal 04-03 [facility] (43494) Comment: Performed By: #### PTISTR, P TT #### [facility] ([facility]) [address] [place] [address] 11180 Glucose [Mass/Vol] 135 70-99 mg/dL High 04-03-2020 [facility]ter (61440) Comment: Performed By: #### PTISTR, P TT #### [facility] ([facility]) [address] [place] [address] 96347 Osmolality [Osmolality] 290 278-305 mOsm/kg Normal 2019 [facility] (87235) Comment: Performed By: #### PTISTR, P TT #### [facility] ([facility]) [address] [place] [address] 06915 Potassium [Moles/Vol] 4.3 3.5-5.0 mmol/L Normal 04-03-20 [facility] (36051) Comment: Performed By: #### PTISTR, P TT #### [facility] ([facility]) [address] [place] [address] 84808 Sodium [Moles/Vol] 136 133-143 mmol/L Normal 04-03-2020 [facility] nter (35108) Comment: Performed By: #### PTISTR, P TT #### [facility] ([facility]) [address] [place] [address] 70318 Urea nitrogen [Mass/Vol] 18 7-22 mg/dL Normal 04-03 [facility]ter (27670) Comment: Performed By: #### PTISTR, P TT #### [facility] ([facility]) [address] [place] [address] 03907 Urea nitrogen/Creatinine [Mass 17 mg/mg Normal 04-03-2020 [facility] ratio] [facility] (21779) Comment: Performed By: #### PTISTR, P TT #### [facility] ([facility]) [address] [place] [address] 75711 cbc and electronic diff on 2020-04-03 Basophils (Bld) [#/Vol] 0.06 K/uL Normal 2019 [facility] (03917) Comment: Performed By: #### PTISTR, P TT #### [facility] ([facility]) [address] [place] [address] 74414 Basophils/100 WBC (Bld) 0.5 % Normal 2019 [facility] (93800) Comment: Performed By: #### PTISTR, P TT #### [facility] ([facility]) [address] [place] [address] 40728 DIFF STATUS Electronic Differential Normal 03-09 [facility] (68366) Comment: Performed By: #### PTISTR, P TT #### [facility] ([facility]) [address] [place] [address] 12117 Eosinophils (Bld) [#/Vol] 0.43 K/uL Normal 03-09 [facility] (22884) Comment: Performed By: #### PTISTR, P TT #### [facility] ([facility]) [address] [place] [address] 98655 Eosinophils/100 WBC (Bld) 3.5 % Normal 03-09 [facility] nter (67774) Comment: Performed By: #### PTISTR, P TT #### [facility] ([facility]) [address] [place] [address] 08799 Hematocrit (Bld) [Volume 39.6 % Normal 04-03 [facility] fraction] (35922) Comment: Performed By: #### PTISTR, P TT #### [facility] ([facility]) [address] [place] [address] 05417 Hemoglobin (Bld) 12.8 13.4-16.8 g/dL Low 04-03-2020 [facility] [Mass/Vol] [facility] (54169) Comment: Performed By: #### PTISTR, P TT #### [facility] ([facility]) [address] [place] [address] 56095 Immature Grans % 1.0 % Normal 04-03-2020 [facility] (00 000) Comment: Performed By: #### PTISTR, P TT #### [facility] ([facility]) [address] [place] [address] 19101 Immature Grans Absolute 0.12 <=0.08 K/uL High 2019 [facility] (19542) Comment: Performed By: #### PTISTR, P TT #### [facility] ([facility]) [address] [place] [address] 40483 Lymphocytes (Bld) [#/Vol] 1.09 K/uL Normal 03-09 [facility] (79932) Comment: Performed By: #### PTISTR, P TT #### [facility] ([facility]) [address] [place] [address] 64801 Lymphocytes/100 WBC (Bld) 8.8 % Normal 03-09 [facility] (94942) Comment: Performed By: #### PTISTR, P TT #### [facility] ([facility]) [address] [place] [address] 53232 MCV (RBC) [Entitic vol] 91.0 fL Normal 2019 [facility] (51477) Comment: Performed By: #### PTISTR, P TT #### [facility] ([facility]) [address] [place] [address] 90315 Mean Cell Hgb 29.4 26.1-33.3 pg Normal 04-03-2020 [facility]ter (77436) Comment: Performed By: #### PTISTR, P TT #### [facility] ([facility]) [address] [place] [address] 28537 Mean Cell Hgb Conc 32.3 31.9-36.5 g/dL Normal 04-03-2020 [facility] (74287) Comment: Performed By: #### PTISTR, P TT #### [facility] ([facility]) [address] [place] [address] 05852 Monocytes (Bld) [#/Vol] 1.01 K/uL High 2019 [facility] (06307) Comment: Performed By: #### PTISTR, P TT #### [facility] ([facility]) [address] [place] [address] 24113 Monocytes/100 WBC (Bld) 8.2 % Normal 2019 [facility] (44848) Comment: Performed By: #### PTISTR, P TT #### [facility] ([facility]) [address] [place] [address] 09450 Nucleated RBC (Bld) 0.0 <=0.2 /100 WBC Normal 04-03-2020 [facility] [#/Vol] [facility] (92839) Comment: Performed By: #### PTISTR, P TT #### [facility] ([facility]) [address] [place] [address] 38655 Platelet mean volume (Bld) 11.2 fL Normal [facility] [Entitic vol] (88186 ) Comment: Performed By: #### PTISTR, P TT #### [facility] ([facility]) [address] [place] [address] 08959 Platelets (Bld) [#/Vol] 224 K/uL Normal 2019 [facility] (73193) Comment: Performed By: #### PTISTR, P TT #### [facility] ([facility]) [address] [place] [address] 41455 RBC (Bld) [#/Vol] 13.1 10.9-14.3 % Normal 04-03-2020 O [facility] nter (78001) Comment: Performed By: #### PTISTR, P TT #### [facility] ([facility]) [address] [place] [address] 91133 RBC (Bld) [#/Vol] 4.35 10*6/uL Low 04-03-2020 [facility] (91501) Comment: Performed By: #### PTISTR, P TT #### [facility] ([facility]) [address] [place] [address] Segs + Bands Auto 78.0 % Normal 04-03-2020 O [facility] (00 000) Comment: Performed By: #### PTISTR, P TT #### [facility] ([facility]) [address] [place] [address] Segs + Bands,Absolute Auto 9.62 1.57-6.19 K/uL High [facility] (48947) Comment: Performed By: #### PTISTR, P TT #### [facility] ([facility]) [address] [place] [address] 56035 WBC (Bld) [#/Vol] 12.33 K/uL High 04-03-2020 [facility] (58424) Comment: Performed By: #### PTISTR, P TT #### [facility] ([facility]) [address] [place] [address] No panel information on 2020-04-03 Anion gap [Moles/Vol] 17 7 - 17 mmol/L 04-03-20 20 [facility] (49171) Chloride [Moles/Vol] 102 98 - 108 mmol/L 0 [facility] (69092) CO2 [Moles/Vol] 21 22 - 30 mmol/L Low 04-03-2020 [facility] (54421) Creatinine [Mass/Vol] 1.01 0.7 - 1.3 mg/dL 04-03-20 20 [facility] (38702) GFR/1.73 sq >=60 >=60 mL/min/{1.73_ 04-03-2020 [facility] Mickiepredicted MDRD mL/min/1.73 m2} [facility] (S/P/Bld) [Vol sqM (4321 0) rate/Area] Glucose [Mass/Vol] 105 70 - 99 mg/dL High 04-03-2020 [facility] (86264) Interpretation and Abnormal 04-03-2020 [facility] review of laboratory [facility] results (98471) Interpretation and Normal 04-03-2020 [facility] review of laboratory [facility] results (33342) Magnesium [Mass/Vol] 2.0 1.6 - 2.6 mg/dL 0 [facility] (02968) Osmolality Calc 288 OTH - OTH 04-03-2020 [facility] [Osmolality] [facility] (51617) Phosphate [Mass/Vol] 4.3 2.2 - 4.6 mg/dL 0 [facility] (68780[facility] Potassium [Moles/Vol] 4.6 3.5 - 5 mmol/L 04-03-20 20 [facility] (70719) Sodium [Moles/Vol] 135 133 - 143 mmol/L 04-03-2020 [facility] (26815) Urea nitrogen 20 7 - 22 mg/dL 04-03-2020 [facility] [Mass/Vol] [facility] (72685) Urea 20 mg/mg 04-03-2020 [facility] nitrogen/Creatinine [facility] [Mass ratio] (45832) Anion gap [Moles/Vol] 14 7 - 17 mmol/L 04-03-20 20 [facility] (92741) Chloride [Moles/Vol] 102 98 - 108 mmol/L 0 [facility] (47123) CO2 [Moles/Vol] 24 22 - 30 mmol/L 04-03-2020 [facility] (76480) Creatinine [Mass/Vol] 1.03 0.7 - 1.3 mg/dL 04-03-20 20 [facility] (44917) GFR/1.73 sq >=60 >=60 mL/min/{1.73_ 04-03-2020 [facility] M.predicted MDRD mL/min/1.73 m2} M [facility] (S/P/Bld) [Vol sqM (4321 0) rate/Area] Glucose [Mass/Vol] 135 70 - 99 mg/dL High 04-03-2020 [facility] (98260) Interpretation and Abnormal 04-03-2020 [facility] review of laboratory [facility] results (63584) Interpretation and Normal 04-03-2020 [facility] review of laboratory [facility] results (22566) Magnesium [Mass/Vol] 2.0 1.6 - 2.6 mg/dL 0 [facility] (74926) Osmolality Calc 290 OTH - OTH 04-03-2020 [facility] [Osmolality] [facility] (64842) Phosphate [Mass/Vol] 4.2 2.2 - 4.6 mg/dL 0 [facility] (88508) Potassium [Moles/Vol] 4.3 3.5 - 5 mmol/L 04-03-20 20 [facility] (13684) Sodium [Moles/Vol] 136 133 - 143 mmol/L 04-03-2020 [facility] (86001[facility] Urea nitrogen 18 7 - 22 mg/dL 04-03-2020 [facility] [Mass/Vol] [facility] (67503) Urea 17 mg/mg 04-03-2020 [facility] nitrogen/Creatinine [facility] [Mass ratio] (87065) Erythrocyte 13.1 10.9 - 14.3 % 04-03-2020 [facility] distribution width [facility] (RBC) [Ratio] (27078 ) Immature granulocytes 0.12 <=0.08 K/uL High 04-03-20 20 [facility] (Bld) [#/Vol] [facility] (56740) Immature 1.0 % 04-03-2020 [facility] granulocytes/100 WBC [facility] (Bld) (60160) MCH (RBC) [Entitic 29.4 26.1 - 33.3 pg 0 [facility] mass] [facility] (59611) MCHC (RBC) [Mass/Vol] 32.3 31.9 - 36.5 g/dL 2019 [facility] (23540) Neutrophils (Bld) 9.62 1.57 - 6.19 K/uL High 04-03-2020 [facility] [#/Vol] [facility] (27353) Segmented 78.0 % 04-03-2020 [facility] neutrophils/100 WBC [facility] (d) (40289) screen: mrsa/mssa o n 2020-04-02 INR Coag (Bld) Negative Negative {INR} Normal 04-02-2020 [facility] [Relative time] [facility] (76536) Comment: Order Comment: Collect with an ESWAB - Anterior Nares for MRSA + MSSAThis test was performed using a r eal time PCR assay. Results should be interpreted in conjunction w ith other clinical and laboratory findings. A positive result does not nec essarily indicate the presence of viable organism. This test should n ot be used as a test of cure. For E-swab specimens, this test was dev eloped and its performance characteristics determined by the [facility] at [facility] nt. It has not been cleared or approved by the FDA.The laboratory is [employer] under CLIA as qualified to perform high-complexity testing. Thi s test is used for clinical purposes. It should not be regarded as investiga tional or for research. Performed By: #### PTISTR, P TT #### [facility] ([facility]ale DIAZ) [address] [place] [address] 79343 Staphylococcus Aureus By Positive Negative Abnormal 04-02 [facility] nter (08798) Comment: Order Comment: Collect with an ESWAB - Anterior Nares for MRSA + MSSAThis test was performed using a r eal time PCR assay. Results should be interpreted in conjunction w ith other clinical and laboratory findings. A positive result does not nec essarily indicate the presence of viable organism. This test should n ot be used as a test of cure. For E-swab specimens, this test was dev eloped and its performance characteristics determined by the Clinical [facility] at [facility] nt. It has not been cleared or approved by the FDA.The laboratory is [employer] under CLIA as qualified to perform high-complexity testing. Thi s test is used for clinical purposes. It should not be regarded as investiga tional or for research. Performed By: #### PTISTR, P TT #### [facility] ([facility]) [address] [place] [id number] procalcitonin on 27-03-26 Procalcitonin 0.21 <=0.50 ng/mL Normal 04-02-2020 [facility] nter ([id number]) Comment: Order Comment: In adult, cri tically ill ICU patients, studies have demonstrated that values <0. 5 ng/mL represent a low risk of severe systemic infection/sepsis.In adult, c ritically ill ICU patients, studies have demonstrated that values >2. 0 ng/mL represent a high risk of severe systemic infection/sepsis.Results <0. 5 ng/mL do not exclude infection, as localized infections (without systemic signs) and early systemic infections (<6 hours) can be associated with such low levels. Several non-infectious clincal conditions such as willams, tr auma, surgery and cardiogenic shock have been associated with elevated pro calcitonin levels.All procalcitonin results should be interpreted in ass ociation with the patients clinical condition and all laboratory findings. The cut off levels noted above for this assay should not be applied to sasha michelle, emergency department or immunocompromised patients. Performed By: #### PTISTR, P TT #### [facility] ([facility]) [address] [place] [address] 00191 phosphate, inorganic on 2020-04-02 Phosphorous 4.6 2.2-4.6 mg/dL Normal 04-02-2020 [facility] (00 000) Comment: Performed By: #### PTISTR, P TT #### [facility] (Dale DIAZ) [address] [place] [address] 35919 Phosphorous 3.9 2.2-4.6 mg/dL Normal 04-02-2020 [facility] (00 000) Comment: Performed By: #### PTISTR, P TT #### [facility] ([facility]) [address] [place] [address] 88533 magnesium on 04-02 Magnesium [Mass/Vol] 2.1 mg/dL Normal 0 [facility] ([id number]) Comment: Performed By: #### PTISTR, P TT #### [facility] ([facility]) [address] [place] [address] 27882 Magnesium [Mass/Vol] 1.9 1.6-2.6 mg/dL Normal 0 [facility] nter (97635) Comment: Performed By: #### PTISTR, P TT #### [facility] ([facility]) [address] [place] [address] 40773 chem 7 (lytes,bun,crea,gluc) on 2020-04-02 Anion gap [Moles/Vol] 16 mmol/L Normal 04-02-20 20 [facility] ([id number]) Comment: Performed By: #### PTISTR, P TT #### [facility] ([facility]) [address] [place] [address] 98829 Chloride [Moles/Vol] 100 mmol/L Normal 0 [facility] ([id number]) Comment: Performed By: #### PTISTR, P TT #### [facility] ([facility]) [address] [place] [address] 41040 CO2 [Moles/Vol] 25 mmol/L Normal 04-02-2020 [facility] ([id number]) Comment: Performed By: #### PTISTR, P TT #### [facility] ([facility]) [address] [place] [address] 01361 Creatinine [Mass/Vol] 1.07 mg/dL Normal 04-02-20 20 [facility] ([id number]) Comment: Performed By: #### PTISTR, P TT #### [facility] ([facility]) [address] [place] [address] 35685 EST GFR, 60 >=60 mL/min/1.73sqM Normal 04-02-20 20 [facility] (60952) Comment: Performed By: #### PTISTR, P TT #### [facility] ([facility]) [address] [place] [address] 01817 EST GFR,Non 60 >=60 mL/min/1.73sqM Normal 04-02 [facility] (28477) Comment: Performed By: #### PTISTR, P TT #### [facility] ([facility]) [address] [place] [address] 83313 Glucose [Mass/Vol] 85 mg/dL Normal 04-02-2020 [facility] ([id number]) Comment: Performed By: #### PTISTR, P TT #### [facility] ([facility]) [address] [place] [address] 19425 Osmolality [Osmolality] 289 278-305 mOsm/kg Normal 2019 [facility] (58072) Comment: Performed By: #### PTISTR, P TT #### [facility] ([facility]) [address] [place] [address] 83858 Potassium [Moles/Vol] 4.4 mmol/L Normal 04-02-20 20 [facility] (14628) Comment: Performed By: #### PTISTR, P TT #### [facility] ([facility]) [address] [place] [address] 59458 Sodium [Moles/Vol] 137 mmol/L Normal 04-02-2020 [facility] (52731) Comment: Performed By: #### PTISTR, P TT #### [facility] ([facility]) [address] [place] [address] 11981 Urea nitrogen [Mass/Vol] 18 mg/dL Normal 04-02 [facility] (15430) Comment: Performed By: #### PTISTR, P TT #### [facility] ([facility]) [address] [place] [address] 94966 Urea nitrogen/Creatinine [Mass 17 mg/mg Normal 04-02-2020 [facility]] [facility] (43 210) Comment: Performed By: #### PTISTR, P TT #### [facility] ([facility]) [address] [place] [address] 34215 Anion gap [Moles/Vol] 15 7-17 mmol/L Normal 04-02-20 20 [facility] nter (66861) Comment: Performed By: #### PTISTR, P TT #### [facility] ([facility]) [address] [place] [address] 04649 Chloride [Moles/Vol] 101 98-108 mmol/L Normal 0 [facility] nter (94109) Comment: Performed By: #### PTISTR, P TT #### [facility] ([facility]) [address] [place] [address] 42613 CO2 [Moles/Vol] 24 22-30 mmol/L Normal 04-02-2020 [facility] nter (63457) Comment: Performed By: #### PTISTR, P TT #### [facility] ([facility]) [address] [place] [address] 32682 Creatinine [Mass/Vol] 1.10 0.70-1.30 mg/dL Normal 04-02-20 20 [facility] (79209) Comment: Performed By: #### PTISTR, P TT #### [facility] ([facility]) [address] [place] [address] 59149 EST GFR, 60 >=60 mL/min/1.73sqM Normal 04-02-20 20 [facility] (07063) Comment: Performed By: #### PTISTR, P TT #### [facility] ([facility]) [address] [place] [address] 37955 EST GFR,Non 60 >=60 mL/min/1.73sqM Normal 04-02 [facility] (30445) Comment: Performed By: #### PTISTR, P TT #### [facility] ([facility]) [address] [place] [address] 28399 Glucose [Mass/Vol] 101 70-99 mg/dL High 04-02-2020 [facility] nter (98971) Comment: Performed By: #### PTISTR, P TT #### [facility] ([facility]) [address] [place] [address] 31952 Osmolality [Osmolality] 288 278-305 mOsm/kg Normal 2019 [facility] (47836) Comment: Performed By: #### PTISTR, P TT #### [facility] ([facility]) [address] [place] [address] 80684 Potassium [Moles/Vol] 4.2 3.5-5.0 mmol/L Normal 04-02-20 [facility] (04722) Comment: Performed By: #### PTISTR, P TT #### [facility] ([facility]) [address] [place] [address] 37618 Sodium [Moles/Vol] 136 133-143 mmol/L Normal 04-02-2020 [facility] nter (85350) Comment: Performed By: #### PTISTR, P TT #### [facility] ([facility]) [address] [place] [address] 22824 Urea nitrogen [Mass/Vol] 20 7-22 mg/dL Normal 04-02 [facility] nter (02794) Comment: Performed By: #### PTISTR, P TT #### [facility] ([facility]) [address] [place] [address] 78145 Urea nitrogen/Creatinine [Mass 18 mg/mg Normal 04-02-2020 [facility] ratio] [facility] (68729) Comment: Performed By: #### PTISTR, P TT #### [facility] ([facility]) [address] [place] [address] 33167 cbc and electronic diff on 2020-04-02 Basophils (Bld) [#/Vol] 0.04 0.00-0.09 K/uL Normal 2019 [facility] (42111) Comment: Performed By: #### PTISTR, P TT #### [facility] ([facility]) [address] [place] [address] 39791 Basophils/100 WBC (Bld) 0.2 % Normal 2019 [facility] nter (26449) Comment: Performed By: #### PTISTR, P TT #### [facility] ([facility]) [address] [place] [address] 74822 DIFF STATUS Electronic Differential Normal 03-09 [facility] (62452) Comment: Performed By: #### PTISTR, P TT #### [facility] ([facility]) [address] [place] [address] 24931 Eosinophils (Bld) 0.47 0.00-0.48 K/uL Normal 04-02-2020 [facility] [#/Vol] [facility] (79678) Comment: Performed By: #### PTISTR, P TT #### [facility] ([facility]) [address] [place] [address] 35178 Eosinophils/100 WBC (Bld) 3.5 % Normal 03-09 [facility] nter (75210) Comment: Performed By: #### PTISTR, P TT #### [facility] ([facility]) [address] [place] [address] 81586 Hematocrit (Bld) [Volume 39.8 39.6-48.8 % Normal 04-02 [facility] fraction] [facility] (65435) Comment: Performed By: #### PTISTR, P TT #### [facility] ([facility]) [address] [place] [address] 82228 Hemoglobin (Bld) 12.9 13.4-16.8 g/dL Low 04-02-2020 [facility] [Mass/Vol] [facility] dical [place] (03017) Comment: Performed By: #### PTISTR, P TT #### [facility] ([facility]) [address] [place] [address] 01101 Immature Grans % 1.1 % Normal 04-02-2020 [facility] (00 000) Comment: Performed By: #### PTISTR, P TT #### [facility] ([facility]) [address] [place] [address] 15691 Immature Grans Absolute 0.14 <=0.08 K/uL High 2019 [facility] nter (41418) Comment: Performed By: #### PTISTR, P TT #### [facility] ([facility]) [address] [place] [address] 58570 Lymphocytes (Bld) 1.61 0.83-3.57 K/uL Normal 04-02-2020 [facility] [#/Vol] [facility] (97912) Comment: Performed By: #### PTISTR, P TT #### [facility] ([facility]) [address] [place] [address] 34510 Lymphocytes/100 WBC (Bld) 12.1 % Normal 03-09 [facility] nter (37486) Comment: Performed By: #### PTISTR, P TT #### [facility] ([facility]) [address] [place] [address] 88028 MCV (RBC) [Entitic vol] 90.0 79.0-94.5 fL Normal 2019 [facility] (83867) Comment: Performed By: #### PTISTR, P TT #### [facility] ([facility]) [address] [place] [address] 32942 Mean Cell Hgb 29.2 26.1-33.3 pg Normal 04-02-2020 [facility] nter (31823) Comment: Performed By: #### PTISTR, P TT #### [facility] ([facility]) [address] [place] [address] 83441 Mean Cell Hgb Conc 32.4 31.9-36.5 g/dL Normal 04-02-2020 [facility] nter (39796) Comment: Performed By: #### PTISTR, P TT #### [facility] ([facility]) [address] [place] [address] 21913 Monocytes (Bld) [#/Vol] 1.29 0.24-0.93 K/uL High 2019 [facility] (60420) Comment: Performed By: #### PTISTR, P TT #### [facility] ([facility]) [address] [place] [address] 32194 Monocytes/100 WBC (Bld) 9.7 % Normal 2019 [facility] nter (47501) Comment: Performed By: #### PTISTR, P TT #### [facility] ([facility]) [address] [place] [address] 15407 Nucleated RBC (Bld) 0.0 <=0.2 /100 WBC Normal 04-02-2020 [facility] [#/Vol] [facility] (31863) Comment: Performed By: #### PTISTR, P TT #### [facility] ([facility]) [address] [place] [address] 75778 Platelet mean volume 11.9 8.7-12.3 fL Normal 0 [facility] (Bld) [Entitic vol] [facility] (08984) Comment: Performed By: #### PTISTR, P TT #### [facility] ([facility]) [address] [place] [address] 15442 Platelets (Bld) [#/Vol] 203 146-337 K/uL Normal 2019 [facility] (35730) Comment: Performed By: #### PTISTR, P TT #### [facility] ([facility]) [address] [place] [address] 34846 RBC (Bld) [#/Vol] 4.42 4.38-5.83 M/uL Normal 04-02-2020 O [facility] nter (91832) Comment: Performed By: #### PTISTR, P TT #### [facility] ([facility]) [address] [place] [address] 72375 RBC (Bld) [#/Vol] 13.2 10.9-14.3 % Normal 04-02-2020 O [facility] nter (19977) Comment: Performed By: #### PTISTR, P TT #### [facility] ([facility]) [address] [place] [address] 54087 Segs + Bands Auto 73.4 % Normal 04-02-2020 O [facility] (00 000) Comment: Performed By: #### PTISTR, P TT #### [facility] ([facility]) [address] [place] [address] 49284 Segs + Bands,Absolute Auto 9.78 1.57-6.19 K/uL High [facility] (90136) Comment: Performed By: #### PTISTR, P TT #### [facility] ([facility]) [address] [place] [address] 77654 WBC (Bld) [#/Vol] 13.32 3.73-10.10 K/uL High 04-02-2020 [facility]ter (30109) Comment: Performed By: #### PTISTR, P TT #### [facility] ([facility]) [address] [place] [address] 90018 No panel information on 2020-04-02 INR Coag (Bld) Negative Negative {INR} 04-02-2020 [facility] [Relative time] [facility] (62390) Interpretation Abnormal 04-02-2020 [facility] and review of [facility] laboratory MEDICAL results [facility]ENTER (90061) Staphylococcus Positive Negative Abnormal 04-02-2020 [facility] Aureus By Pcr [facility] ([id number]) This test was 04-02-2020 [facility] performed using a Photoze[employer] real time PCR assay. MEDICAL Results should be CE NTER interpreted in (4321 0) conjunction with other clinical and laboratory findings. A positive result does not necessarily indicate the presence of viable organism. This test should not be used as a test of cure. For E-swab specimens, this test was developed and its performance characteristics determined by the Clinical Microbiology Laboratory at [facility]. It has not been cleared or approved by the FDA.The laboratory is regulated under CLIA as qualified to perform high-complexity testing. This test is used for clinical purposes. It should not be regarded as investigational or for research. GFR/1.73 sq >=60 >=60 mL/min/{ 04-02-2020 [facility] M.predicted MDRD mL/min/1.73 1.73_m2} W EXNER (S/P/Bld) [Vol sqM MEDIC AL rate/Area] [facility] (03137) Osmolality Calc 289 OTH - OTH 04-02-2020 [facility] [Osmolality] [facility] (43203) Phosphate 4.6 2.2 - 4.6 mg/dL 04-02-2020 [facility] [Mass/Vol] [facility] (37697) Interpretation Normal 04-02-2020 [facility] and review of [facility] laboratory MEDICAL results [facility]ENTER (63094) Procalcitonin 0.21 <=0.50 ng/mL 04-02-2020 [facility] [Mass/Vol] [facility] (53834) In adult, critically 0 [facility] ill ICU patients, WE XNER studies have MEDICAL demonstrated that CE NTER values <0.5 ng/mL (4 3210) represent a low risk of severe systemic infection/sepsis. In adult, critically ill ICU patients, studies have demonstrated that values >2.0 ng/mL represent a high risk of severe systemic infection/sepsis. Results <0.5 ng/mL do not exclude infection, as localized infections (without systemic signs) and early systemic infections (<6 hours) can be associated with such low levels. Several non-infectious clincal conditions such as willams, trauma, surgery and cardiogenic shock have been associated with elevated procalcitonin levels. All procalcitonin results should be interpreted in association with the patients clinical condition and all laboratory findings. The cut off levels noted above for this assay should not be applied to , emergency department or immunocompromised patients. Anion gap 15 7 - 17 mmol/L 04-02-2020 [facility] [Moles/Vol] [facility] (72643) Chloride 101 98 - 108 mmol/L 04-02-2020 [facility] [Moles/Vol] [facility] ([facility]) CO2 [Moles/Vol] 24 22 - 30 mmol/L 04-02-2020 [facility] ([facility]) Creatinine 1.10 0.7 - 1.3 mg/dL 04-02-2020 [facility] [Mass/Vol] [facility] ([facility]) GFR/1.73 sq >=60 >=60 mL/min/{ 04-02-2020 [facility] M.predicted MDRD mL/min/1.73 1.73_m2} W EXNER (S/P/Bld) [Vol sqM MEDIC AL rate/Area] [facility] ([facility]) Glucose 101 70 - 99 mg/dL High 04-02-2020 [facility] [Mass/Vol] [facility] ([facility]) Interpretation Normal 04-02-2020 [facility] and review of [facility] laboratory [facility] results [place] ([facility]) Interpretation Abnormal 04-02-2020 [facility] and review of [facility] laboratory MEDICAL results [place] ([facility]) Magnesium 1.9 1.6 - 2.6 mg/dL 04-02-2020 [facility] [Mass/Vol] [facility] ([facility]) Osmolality Calc 288 OTH - OTH 04-02-2020 [facility] [Osmolality] [facility] ([facility]) Phosphate 3.9 2.2 - 4.6 mg/dL 04-02-2020 [facility] [Mass/Vol] [facility] ([facility]) Potassium 4.2 3.5 - 5 mmol/L 04-02-2020 [facility] [Moles/Vol] [facility] ([facility]) Sodium 136 133 - 143 mmol/L 04-02-2020 [facility] [Moles/Vol] [facility] ([facility]) Urea nitrogen 20 7 - 22 mg/dL 04-02-2020 [facility] [Mass/Vol] [facility] ([facility]) Urea 18 mg/mg 04-02-2020 [facility] nitrogen/Creatini WE XNER ne [Mass ratio] [facility] ([facility]) Basophils (Bld) <0.04 0 - 0.09 10*3/uL 04-02-2020 [facility] [#/Vol] [facility] ([facility]) Basophils/100 WBC 0.2 % 04-02-2020 O [facility]WSON (Bld) [facility] ([facility]) DIFF STATUS Electronic 04-02-2020 [facility] Differential [facility] ([facility]) Eosinophils (Bld) 0.47 0 - 0.48 K/uL 04-02-2020 O [facility] [#/Vol] [facility] ([id number]) Eosinophils/100 3.5 % 04-02-2020 [facility] WBC (Bld) [facility] ([facility]) Erythrocyte 13.2 10.9 - 14.3 % 04-02-2020 [facility] distribution [facility] width (RBC) MEDICAL [Ratio] [place] ([facility]) Hematocrit (Bld) 39.8 39.6 - 48.8 % 04-02-2020 [facility] [Volume fraction] [facility] ([facility]) Hemoglobin (Bld) 12.9 13.4 - 16.8 g/dL Low 04-02-2020 [facility] [Mass/Vol] [facility] ([facility]) Immature 0.14 <=0.08 K/uL High 04-02-2020 [facility] granulocytes [facility] (Bld) [#/Vol] [facility] ([facility]) Immature 1.1 % 04-02-2020 [facility] granulocytes/100 [facility] NER WBC (Bld) [facility] ([facility]) Interpretation Abnormal 04-02-2020 [facility] and review of [facility] laboratory MEDICAL results [place] ([facility]) Lymphocytes (Bld) 1.61 0.83 - 3.57 K/uL 04-02-2020 [facility] [#/Vol] [facility] ([facility]) Lymphocytes/100 12.1 % 04-02-2020 [facility] WBC (Bld) [facility] ([facility]) MCH (RBC) 29.2 26.1 - 33.3 pg 04-02-2020 [facility] [Entitic mass] [facility] ([facility]) MCHC (RBC) 32.4 31.9 - 36.5 g/dL 04-02-2020 [facility] [Mass/Vol] [facility] ([facility]) MCV (RBC) 90.0 79 - 94.5 fL 04-02-2020 [facility] [Entitic vol] [facility] ([facility]) Monocytes (Bld) 1.29 0.24 - 0.93 K/uL High 04-02-2020 O [facility] [#/Vol] [facility] ([id number]) Monocytes/100 WBC 9.7 % 04-02-2020 O [facility] (Bld) [facility] ([id number]) Neutrophils (Bld) 9.78 1.57 - 6.19 K/uL High 04-02-2020 [facility] [#/Vol] [facility] ([id number]) Nucleated RBC/100 0.0 <=0.2 /100 % 04-02-2020 [facility] WBC (Bld) [Ratio] WBC [facility] (37066) Platelet mean 11.9 8.7 - 12.3 fL 04-02-2020 [facility] volume (Bld) [facility] [Entitic vol] [facility] (50417) Platelets (Bld) 203 146 - 337 K/uL 04-02-2020 [facility] [#/Vol] [facility] (56370) RBC (Bld) [#/Vol] 4.42 OTH - OTH 10*6/uL 04-02-2020 O DAWSON [facility] ([id number]) Segmented 73.4 % 04-02-2020 [facility] neutrophils/100 [facility] WBC (Bld) [facility] (49385) WBC (Bld) [#/Vol] 13.32 3.73 - 10.1 K/uL High 04-02-2020 [facility] (23729) xr chest ap portable on 2020-04-01 XR CHEST AP EXAM: XR CHEST AP PORTABLE, 04/01/2020 11:59 AM Normal 04-01-2020 [facility] PORTABLE COMPARISON: Chest CT March 26, 2020 [facility] CLINICAL INDICATIONS: cough, shortness of breath [facility] RELEVANT CLINICAL HISTORY: ([id number]) FINDINGS: (Limited by rotation) Life Support Devices: Feeding tube is in the stomach. Chest Wall: Stable osseous structures. Bertha: Normal Mediastinum: Normal Pleural Spaces: Bilateral pleural effusions. No definite pne umothorax. Lungs: Progressed basilar opacities, greater on the left. Cardiac Silhouette: Stable contour Thoracic Aorta: Atherosclerotic calcifications Pulmonary Vessels: Normal, without PVH IMPRESSION: Hazy bilateral basilar opacities may represent an infectio us process in the appropriate clinical setting. 1:4 4 PM phosphate, inorganic on 2020-04-01 Phosphorous 4.0 2.2-4.6 mg/dL Normal 04-01-2020 [facility] (00 000) Comment: Performed By: #### PTISTR, P TT #### [facility] (Dale DIAZ) [address] [place] [address] 48109 magnesium on 04-01 Magnesium [Mass/Vol] 1.9 1.6-2.6 mg/dL Normal 0 [facility] nter (90471) Comment: Performed By: #### CKB, C7ED , HFP, ACTMJ, SALIJ, CA, MGO, TSH #### [facility] (Dale JOSE) [address] [place] [address] 37253 chem 7 (lytes,bun,crea,gluc) on 2020-04-01 Anion gap [Moles/Vol] 14 7-17 mmol/L Normal 04-01-20 20 [facility] nter (94610) Comment: Performed By: #### CKB, C7ED , HFP, ACTMJ, SALIJ, CA, MGO, TSH #### [facility] (Dale JOSE) [address] [place] [address] 07400 Chloride [Moles/Vol] 106 98-108 mmol/L Normal 0 [facility] nter (53924) Comment: Performed By: #### CKB, C7ED , HFP, ACTMJ, SALIJ, CA, MGO, TSH #### [facility] (Dale JOSE) [address] [place] [address] 62302 CO2 [Moles/Vol] 24 22-30 mmol/L Normal 04-01-2020 [facility] nter (29082) Comment: Performed By: #### CKB, C7ED , HFP, ACTMJ, SALIJ, CA, MGO, TSH #### [facility] (Dale JOSE) [address] [place] [address] 00946 Creatinine [Mass/Vol] 1.21 0.70-1.30 mg/dL Normal 04-01-20 [facility] (79740) Comment: Performed By: #### CKB, C7ED , HFP, ACTMJ, SALIJ, CA, MGO, TSH #### [facility] (Dale JOSE) [address] [place] [address] 82440 EST GFR, 60 >=60 mL/min/1.73sqM Normal 04-01-20 [facility] ([id number]) Comment: Performed By: #### CKB, C7ED , HFP, ACTMJ, SALIJ, CA, MGO, TSH #### [facility] (Dale JOSE) [address] [place] [address] 67233 EST GFR,Non 60 >=60 mL/min/1.73sqM Normal 04-01 [facility] (44905) Comment: Performed By: #### CKB, C7ED , HFP, ACTMJ, SALIJ, CA, MGO, TSH #### [facility] ([facility] JOSE) [address] [place] [address] 95754 Glucose [Mass/Vol] 129 70-99 mg/dL High 04-01-2020 [facility] nter (85329) Comment: Performed By: #### CKB, C7ED , HFP, ACTMJ, SALIJ, CA, MGO, TSH #### [facility] ([facility] JOSE) [address] [place] [address] 46523 Osmolality [Osmolality] 297 278-305 mOsm/kg Normal 2019 [facility] (21470) Comment: Performed By: #### CKB, C7ED , HFP, ACTMJ, SALIJ, CA, MGO, TSH #### [facility] ([facility]) [address] [place] [address] 33011 Potassium [Moles/Vol] 3.9 3.5-5.0 mmol/L Normal 04-01-20 20 [facility] (80851) Comment: Performed By: #### CKB, C7ED , HFP, ACTMJ, SALIJ, CA, MGO, TSH #### [facility] ( JOE) [address] [place] [address] 61841 Sodium [Moles/Vol] 140 133-143 mmol/L Normal 04-01-2020 [facility] nter (51290) Comment: Performed By: #### CKB, C7ED , HFP, ACTMJ, SALIJ, CA, MGO, TSH #### [facility] ([facility] JOSE) [address] [place] [address] 05286 Urea nitrogen [Mass/Vol] 21 7-22 mg/dL Normal 04-01 [facility] nter (67459) Comment: Performed By: #### CKB, C7ED , HFP, ACTMJ, SALIJ, CA, MGO, TSH #### [facility] ([facility] JOSE) [address] [place] [address] 66870 Urea nitrogen/Creatinine [Mass 17 mg/mg Normal 04-01-2020 [facility] ratio] [facility] (81561) Comment: Performed By: #### CKB, C7ED , HFP, ACTMJ, SALIJ, CA, MGO, TSH #### [facility] ([facility] JOSE) [address] [place] [address] 70190 cbc and electronic diff on 2020-04-01 Basophils (Bld) [#/Vol] 0.04 0.00-0.09 K/uL Normal 2019 [facility] (12860) Comment: Performed By: #### CKB, C7ED , HFP, ACTMJ, SALIJ, CA, MGO, TSH #### [facility] ([facility] [address] [place] [address] 17348 Basophils/100 WBC (Bld) 0.2 % Normal 2019 [facility] nter (40437) Comment: Performed By: #### CKB, C7ED , HFP, ACTMJ, SALIJ, CA, MGO, TSH #### [facility] (D [facility]) [address] [place] [address] 19221 DIFF STATUS Electronic Differential Normal 03-09 [facility] (93107) Comment: Performed By: #### CKB, C7ED , HFP, ACTMJ, SALIJ, CA, MGO, TSH #### [facility] ([facility]) [address] [place] [address] 16116 Eosinophils (Bld) 0.47 0.00-0.48 K/uL Normal 04-01-2020 [facility] [#/Vol] [facility] (34676) Comment: Performed By: #### CKB, C7ED , HFP, ACTMJ, SALIJ, CA, MGO, TSH #### [facility] ([facility]) [address] [place] [address] 47514 Eosinophils/100 WBC (Bld) 3.6 % Normal 03-09 [facility] nter (27705) Comment: Performed By: #### CKB, C7ED , HFP, ACTMJ, SALIJ, CA, MGO, TSH #### [facility] ([facility]) [address] [place] [address] 40934 Hematocrit (Bld) [Volume 38.0 39.6-48.8 % Low 04-01 [facility] fraction] [facility] (51949) Comment: Performed By: #### CKB, C7ED , HFP, ACTMJ, SALIJ, CA, MGO, TSH #### [facility] ([facility]) [address] [place] [address] 75677 Hemoglobin (Bld) 12.1 13.4-16.8 g/dL Low 04-01-2020 [facility] [Mass/Vol] [facility] (80653) Comment: Performed By: #### CKB, C7ED , HFP, ACTMJ, SALIJ, CA, MGO, TSH #### [facility] ([facility]) [address] [place] [address] 11891 Immature Grans % 1.2 % Normal 04-01-2020 [facility] (00 000) Comment: Performed By: #### CKB, C7ED , HFP, ACTMJ, SALIJ, CA, MGO, TSH #### [facility] ([facility]) [address] [place] [address] 38936 Immature Grans Absolute 0.16 <=0.08 K/uL High 2019 [facility] nter (71305) Comment: Performed By: #### CKB, C7ED , HFP, ACTMJ, SALIJ, CA, MGO, TSH #### [facility] ([facility]JO[facility]) [address] [place] [address] 06867 Lymphocytes (Bld) 1.42 0.83-3.57 K/uL Normal 04-01-2020 [facility] [#/Vol] [facility] (26318) Comment: Performed By: #### CKB, C7ED , HFP, ACTMJ, SALIJ, CA, MGO, TSH #### [facility] ([facility]) [address] [place] [address] 68006 Lymphocytes/100 WBC (Bld) 11.0 % Normal 03-09 [facility] nter (87825) Comment: Performed By: #### CKB, C7ED , HFP, ACTMJ, SALIJ, CA, MGO, TSH #### [facility] ([facility]) [address] [place] [address] 36754 MCV (RBC) [Entitic vol] 91.1 79.0-94.5 fL Normal 2019 [facility] (79388) Comment: Performed By: #### CKB, C7ED , HFP, ACTMJ, SALIJ, CA, MGO, TSH #### [facility] ([facility]) [address] [place] [address] 31649 Mean Cell Hgb 29.0 26.1-33.3 pg Normal 04-01-2020 [facility] (19055) Comment: Performed By: #### CKB, C7ED , HFP, ACTMJ, SALIJ, CA, MGO, TSH #### [facility] ([facility]) [address] [place] [address] 96167 Mean Cell Hgb Conc 31.8 31.9-36.5 g/dL Low 04-01-2020 [facility] (90091) Comment: Performed By: #### CKB, C7ED , HFP, ACTMJ, SALIJ, CA, MGO, TSH #### [facility] ([facility]) [address] [place] [address] 20876 Monocytes (Bld) [#/Vol] 1.03 0.24-0.93 K/uL High 2019 [facility] (93418) Comment: Performed By: #### CKB, C7ED , HFP, ACTMJ, SALIJ, CA, MGO, TSH #### [facility] ([facility]) [address] [place] [address] 98020 Monocytes/100 WBC (Bld) 8.0 % Normal 2019 [facility] (90237) Comment: Performed By: #### CKB, C7ED , HFP, ACTMJ, SALIJ, CA, MGO, TSH #### [facility] ([facility]) [address] [place] [address] 85269 Nucleated RBC (Bld) 0.0 <=0.2 /100 WBC Normal 04-01-2020 [facility] [#/Vol] [facility] (58312) Comment: Performed By: #### CKB, C7ED , HFP, ACTMJ, SALIJ, CA, MGO, TSH #### [facility] ([facility]) [address] [place] [address] 62938 Platelet mean volume 11.1 8.7-12.3 fL Normal 0 [facility] (Bld) [Entitic vol] [facility] (38156) Comment: Performed By: #### CKB, C7ED , HFP, ACTMJ, SALIJ, CA, MGO, TSH #### [facility] ([facility]) [address] [place] [address] 62773 Platelets (Bld) [#/Vol] 198 146-337 K/uL Normal 2019 [facility] (98159) Comment: Performed By: #### CKB, C7ED , HFP, ACTMJ, SALIJ, CA, MGO, TSH #### [facility] ([facility]) [address] [place] [address] 57228 RBC (Bld) [#/Vol] 4.17 4.38-5.83 M/uL Low 04-01-2020 O [facility] nter (53054) Comment: Performed By: #### CKB, C7ED , HFP, ACTMJ, SALIJ, CA, MGO, TSH #### [facility] ([facility] JO[facility]) [address] [place] [address] 64026 RBC (Bld) [#/Vol] 13.4 10.9-14.3 % Normal 04-01-2020 O [facility] nter (02616) Comment: Performed By: #### CKB, C7ED , HFP, ACTMJ, SALIJ, CA, MGO, TSH #### [facility] ([facility]IA[facility]) [address] [place] [address] 88984 Segs + Bands Auto 76.0 % Normal 04-01-2020 O [facility] (00 000) Comment: Performed By: #### CKB, C7ED , HFP, ACTMJ, SALIJ, CA, MGO, TSH #### [facility] ([facility]) [address] [place] [address] 16888 Segs + Bands,Absolute Auto 9.79 1.57-6.19 K/uL High [facility] (56502) Comment: Performed By: #### CKB, C7ED , HFP, ACTMJ, SALIJ, CA, MGO, TSH #### [facility] ([facility]) [address] [place] [address] WBC (Bld) [#/Vol] 12.89 3.73-10.10 K/uL High 04-01-2020 [facility] (88526) Comment: Performed By: #### CKB, C7ED , HFP, ACTMJ, SALIJ, CA, MGO, TSH #### [facility] ([facility]) [address] [place] [address] No panel information on 2020-04-01 Anion gap 16 7 - 17 mmol/L 04-01-2020 [facility] [Moles/Vol] [facility] (24313) Chloride 104 98 - 108 mmol/L 04-01-2020 [facility] [Moles/Vol] [facility] (23130) CO2 [Moles/Vol] 24 22 - 30 mmol/L 04-01-2020 [facility] (72587) Creatinine 0.92 0.7 - mg/dL 04-01-2020 [facility] [Mass/Vol] 1.3 [facility] (42108) GFR/1.73 sq >=60 >=60 mL/min/{1.7 04-01-[facility] mL/min/1 3_m2} MED ICAL (S/P/Bld) [Vol .73sqM CENTE R rate/Area] (87383) Glucose [Mass/Vol] 119 70 - 99 mg/dL High 04-01-2020 [facility] (06686) Interpretation and Abnormal 04-01-2020 [facility] review of MEDICAL laboratory results [facility] (52182) Interpretation and Normal 04-01-2020 [facility] laboratory results [facility] (11901) Magnesium 2.0 1.6 - mg/dL 04-01-2020 [facility] [Mass/Vol] 2.6 [facility] (73462) Osmolality Calc 297 OTH - 04-01-2020 [facility] [Osmolality] [facility] (49470) Phosphate 3.8 2.2 - mg/dL 04-01-2020 [facility] [Mass/Vol] 4.6 [facility] (97801) Potassium 4.8 3.5 - 5 mmol/L 04-01-2020 [facility] [Moles/Vol] [facility] (60613) Sodium [Moles/Vol] 139 133 - mmol/L 04-01-2020 [facility] 143 [facility] (84556) Urea nitrogen 21 7 - 22 mg/dL 04-01-2020 [facility] [Mass/Vol] [facility] (38578) Urea 23 mg/mg 04-01-2020 [facility] nitrogen/Creatinine MEDICAL [Mass ratio] [facility] (20657) IMPRESSION: Hazy 04-01-2020 [facility] bilateral basilar ME DICAL opacities may CENTER represent an (59400) infectious process in the appropriate clinical setting. : XR CHEST AP 04-01-2020 [facility] PORTABLE, 04/01/2020 MEDICAL 11:59 AM COMPARISON: CENTER Chest CT March 26 (5 1880) 2019 CLINICAL INDICATIONS: cough, shortness of breath RELEVANT CLINICAL HISTORY: FINDINGS: (Limited by rotation) Life Support Devices: Feeding tube is in the stomach. Chest Wall: Stable osseous structures. Bertha: Normal Mediastinum: Normal Pleural Spaces: Bilateral pleural effusions. No definite pneumothorax. Lungs: Progressed basilar opacities, greater on the left. Cardiac Silhouette: Stable contour Thoracic Aorta: Atherosclerotic calcifications Pulmonary Vessels: Normal, without PVH User, Interfaces - 0 1:48 PM EDT EXAM: XR CHEST AP PORTABLE, 04/01/2020 11:59 AM 04-01-2020 [facility] MEDICAL COMPARISON: Chest CT March 26, 2020 [facility] ([id number]) CLINICAL INDICATIONS: cough, shortness of breath RELEVANT CLINICAL HISTORY: FINDINGS: (Limited by rotation) Life Support Devices: Feeding tube is in the stomach. Chest Wall: Stable osseous structures. Bertha: Normal Mediastinum: Normal Pleural Spaces: Bilateral pleural effusions. No definite pne umothorax. Lungs: Progressed basilar opacities, greater on the left. Cardiac Silhouette: Stable contour Thoracic Aorta: Atherosclerotic calcifications Pulmonary Vessels: Normal, without PVH IMPRESSION IMPRESSION: Hazy bilateral basilar opacities may represent an infectio us process in the appropriate clinical setting. 1:4 4 PM Anion gap 14 7 - 17 mmol/L 04-01-2020 [facility] [Moles/Vol] [facility] (68858) Chloride 106 98 - 108 mmol/L 04-01-2020 [facility] [Moles/Vol] [facility] (98135) CO2 [Moles/Vol] 24 22 - 30 mmol/L 04-01-2020 [facility] (32907) Creatinine 1.21 0.7 - mg/dL 04-01-2020 [facility] [Mass/Vol] 1.3 [facility] (62010) GFR/1.73 sq >=60 >=60 mL/min/{1.7 04-01-2020 [facility] MCielopredicted MDRD mL/min/1 3_m2} MED ICAL (S/P/Bld) [Vol .73sqM [facility] R rate/Area] ([facility]) Glucose [Mass/Vol] 129 70 - 99 mg/dL High 04-01-2020 [facility] ([facility]) Interpretation and Normal 04-01-2020 [facility] review of MEDICAL laboratory results [facility] (26353) Interpretation and Abnormal 04-01-2020 [facility] review of MEDICAL laboratory results [facility] (56477) Magnesium 1.9 1.6 - mg/dL 04-01-2020 [facility] [Mass/Vol] 2.6 [facility] (88834) Osmolality Calc 297 OTH - 04-01-2020 [facility] [Osmolality] [facility] (35986) Phosphate 4.0 2.2 - mg/dL 04-01-2020 [facility] [Mass/Vol] 4.6 [facility] (88491) Potassium 3.9 3.5 - 5 mmol/L 04-01-2020 [facility] [Moles/Vol] [facility] (41612) Sodium [Moles/Vol] 140 133 - mmol/L 04-01-2020 [facility] [address] [place] [address] (53787) Urea nitrogen 21 7 - 22 mg/dL 04-01-2020 [facility] [Mass/Vol] [facility] (24078) Urea 17 mg/mg 04-01-2020 [facility] nitrogen/Creatinine MEDICAL [Mass ratio] [facility] ([facility]) Basophils (Bld) <0.04 0 - 0.09 10*3/uL 04-01-2020 [facility] [#/Vol] [facility] ([facility]) Basophils/100 WBC 0.2 % 04-01-2020 [facility] (Bld) [facility] ([facility]) DIFF STATUS Electronic 04-01-2020 [facility] Differential [facility] ([facility]) Eosinophils (Bld) 0.47 0 - 0.48 K/uL 04-01-2020 [facility] [#/Vol] [facility] ([facility]) Eosinophils/100 WBC 3.6 % 04-01-2020 [facility] (Bld) [facility] ([facility]) Erythrocyte 13.4 10.9 - % 04-01-2020 [facility] distribution width 14.3 M EDICAL (RBC) [Ratio] [facility] ([facility]) Hematocrit (Bld) 38.0 39.6 - % Low 04-01-2020 [facility] [Volume fraction] 48.8 ME DICAL [facility] ([facility]) Hemoglobin (Bld) 12.1 13.4 - g/dL Low 04-01-2020 [facility] [Mass/Vol] 16.8 [facility] ([facility]) Immature 0.16 <=0.08 K/uL High 04-01-2020 [facility] granulocytes (Bld) M EDICAL [#/Vol] [facility] ([facility]) Immature 1.2 % 04-01-2020 [facility] granulocytes/100 MED ICAL WBC (Bld) [facility] ([facility]) Interpretation and Abnormal 04-01-2020 [facility] review of MEDICAL laboratory results [facility] ([facility]) Lymphocytes (Bld) 1.42 0.83 - K/uL 04-01-2020 [facility] [#/Vol] 3.57 [facility] ([facility]) Lymphocytes/100 WBC 11.0 % 04-01-2020 [facility] (Bld) [facility] ([facility]) MCH (RBC) [Entitic 29.0 26.1 - pg 04-01-2020 [facility] mass] 33.3 [facility] ([facility]) MCHC (RBC) 31.8 31.9 - g/dL Low 04-01-2020 [facility] [Mass/Vol] 36.5 [facility] (76375) MCV (RBC) [Entitic 91.1 79 - fL 04-01-2020 [facility] vol] 94.5 [facility] (06246) Monocytes (Bld) 1.03 0.24 - K/uL High 04-01-2020 [facility] [#/Vol] 0.93 [facility] (89590) Monocytes/100 WBC 8.0 % 04-01-2020 [facility] (Bld) [facility] (70246) Neutrophils (Bld) 9.79 1.57 - K/uL High 04-01-2020 [facility] [#/Vol] 6.19 [facility] (71032) Nucleated RBC/100 0.0 <=0.2 % 04-01-2020 [facility] WBC (Bld) [Ratio] /100 WBC RI DICAL [facility] (41200) Platelet mean 11.1 8.7 - fL 04-01-2020 [facility] volume (Bld) 12.3 [facility] [Entitic vol] [facility] (51723) Platelets (Bld) 198 146 - K/uL 04-01-2020 [facility] [#/Vol] 337 [facility] (50058) RBC (Bld) [#/Vol] 4.17 OTH - 10*6/uL Low 04-01-2020 [facility] (95620) Segmented 76.0 % 04-01-2020 [facility] neutrophils/100 WBC [facility] (Bld) [facility] (09121) WBC (Bld) [#/Vol] 12.89 3.73 - K/uL High 04-01-2020 [facility] 10.1 [facility] (41241) phosphate, inorganic on 2020-03-31 Phosphorous 3.5 2.2-4.6 mg/dL Normal 03-31-2020 [facility] (00 000) Comment: Performed By: #### CKB, C7ED , HFP, ACTMJ, SALIJ, CA, MGO, TSH #### [facility] ([facility]) [address] [address] Phosphorous 3.8 2.2-4.6 mg/dL Normal 03-31-2020 [facility] (00 000) Comment: Performed By: #### CKB, C7ED , HFP, ACTMJ, SALIJ, CA, MGO, TSH #### [facility] ([facility]) [address] [place] [address] 34664 magnesium on 03-31 Magnesium [Mass/Vol] 1.8 1.6-2.6 mg/dL Normal 0 [facility] nter (83133) Comment: Performed By: #### CKB, C7ED , HFP, ACTMJ, SALIJ, CA, MGO, TSH #### [facility] ([facility]) [address] [place] [address] 71120 Magnesium [Mass/Vol] 1.9 1.6-2.6 mg/dL Normal 0 [facility] nter (78975) Comment: Performed By: #### CKB, C7ED , HFP, ACTMJ, SALIJ, CA, MGO, TSH #### [facility] ([facility]) [address] [place] [address] 13923 chem 7 (lytes,bun,crea,gluc) on 2020-03-31 Anion gap [Moles/Vol] 13 7-17 mmol/L Normal 03-31-20 20 [facility] nter (77558) Comment: Performed By: #### CKB, C7ED , HFP, ACTMJ, SALIJ, CA, MGO, TSH #### [facility] ([facility]) [address] [place] [address] 56651 Chloride [Moles/Vol] 103 98-108 mmol/L Normal 0 [facility] nter (86183) Comment: Performed By: #### CKB, C7ED , HFP, ACTMJ, SALIJ, CA, MGO, TSH #### [facility] ([facility]) [address] [place] [address] 59451 CO2 [Moles/Vol] 28 22-30 mmol/L Normal 03-31-2020 [facility] nter (90070) Comment: Performed By: #### CKB, C7ED , HFP, ACTMJ, SALIJ, CA, MGO, TSH #### [facility] ([facility]) [address] [place] [address] 54269 Creatinine [Mass/Vol] 1.08 0.70-1.30 mg/dL Normal 03-31-20 20 [facility] (42078) Comment: Performed By: #### CKB, C7ED , HFP, ACTMJ, SALIJ, CA, MGO, TSH #### [facility] ([facility]) [address] [place] [address] 64428 EST GFR, 60 >=60 mL/min/1.73sqM Normal 03-31-20 20 [facility] (30477) Comment: Performed By: #### CKB, C7ED , HFP, ACTMJ, SALIJ, CA, MGO, TSH #### [facility] ([facility]) [address] [place] [address] 79533 EST GFR,Non 60 >=60 mL/min/1.73sqM Normal 03-31 [facility] (64907) Comment: Performed By: #### CKB, C7ED , HFP, ACTMJ, SALIJ, CA, MGO, TSH #### [facility] ([facility]) [address] [place] [address] 67714 Glucose [Mass/Vol] 105 70-99 mg/dL High 03-31-2020 [facility]ter (73625) Comment: Performed By: #### CKB, C7ED , HFP, ACTMJ, SALIJ, CA, MGO, TSH #### [facility] ([facility]) [address] [place] [address] 03814 Osmolality [Osmolality] 297 278-305 mOsm/kg Normal 2019 [facility] (68309) Comment: Performed By: #### CKB, C7ED , HFP, ACTMJ, SALIJ, CA, MGO, TSH #### [facility] ([facility]) [address] [place] [address] 23399 Potassium [Moles/Vol] 4.1 3.5-5.0 mmol/L Normal 03-31-20 [facility] (25650) Comment: Performed By: #### CKB, C7ED , HFP, ACTMJ, SALIJ, CA, MGO, TSH #### [facility] ([facility]) [address] [place] [address] 09830 Sodium [Moles/Vol] 140 133-143 mmol/L Normal 03-31-2020 [facility]ter (04905) Comment: Performed By: #### CKB, C7ED , HFP, ACTMJ, SALIJ, CA, MGO, TSH #### [facility] ([facility]) [address] [place] [address] 28334 Urea nitrogen [Mass/Vol] 22 7-22 mg/dL Normal 03-31 [facility] (63205) Comment: Performed By: #### CKB, C7ED , HFP, ACTMJ, SALIJ, CA, MGO, TSH #### [facility] ([facility]) [address] [place] [address] 85928 Urea nitrogen/Creatinine [Mass 20 mg/mg Normal 03-31-2020 [facility] ratio] [facility] (40203) Comment: Performed By: #### CKB, C7ED , HFP, ACTMJ, SALIJ, CA, MGO, TSH #### [facility] ([facility]) [address] [place] [address] 63257 Anion gap [Moles/Vol] 13 7-17 mmol/L Normal 03-31-20 [facility] (45121) Comment: Performed By: #### CKB, C7ED , HFP, ACTMJ, SALIJ, CA, MGO, TSH #### [facility] ([facility]) [address] [place] [address] 21901 Chloride [Moles/Vol] 106 98-108 mmol/L Normal 0 [facility] (85768) Comment: Performed By: #### CKB, C7ED , HFP, ACTMJ, SALIJ, CA, MGO, TSH #### [facility] ([facility] [address] [place] [address] 86808 CO2 [Moles/Vol] 25 22-30 mmol/L Normal 03-31-[facility] (87425[facility] Comment: Performed By: #### CKB, C7ED , HFP, ACTMJ, SALIJ, CA, MGO, TSH #### [facility] ([facility]) [address] [place] [address] 65147 Creatinine [Mass/Vol] 1.02 0.70-1.30 mg/dL Normal 03-31-20 20 [facility] (00329) Comment: Performed By: #### CKB, C7ED , HFP, ACTMJ, SALIJ, CA, MGO, TSH #### [facility] ([facility]) [address] [place] [address] 01428 EST GFR, 60 >=60 mL/min/1.73sqM Normal 03-31-20 20 [facility] ([id number]) Comment: Performed By: #### CKB, C7ED , HFP, ACTMJ, SALIJ, CA, MGO, TSH #### [facility] ([facility]) [address] [place] [address] 22835 EST GFR,Non 60 >=60 mL/min/1.73sqM Normal 03-31 [facility] ([id number]) Comment: Performed By: #### CKB, C7ED , HFP, ACTMJ, SALIJ, CA, MGO, TSH #### [facility] ([facility]) [address] [place] [address]67 Glucose [Mass/Vol] 117 70-99 mg/dL High 03-31-2020 [facility] nter ([id number]) Comment: Performed By: #### CKB, C7ED , HFP, ACTMJ, SALIJ, CA, MGO, TSH #### [facility] ([facility]) [address] [place] [address] 35268 Osmolality [Osmolality] 298 278-305 mOsm/kg Normal 2019 [facility] ([id number]) Comment: Performed By: #### CKB, C7ED , HFP, ACTMJ, SALIJ, CA, MGO, TSH #### [facility] ([facility]) [address] [place] [address] 66118 Potassium [Moles/Vol] 3.9 3.5-5.0 mmol/L Normal 03-31-20 [facility] ([id number]) Comment: Performed By: #### CKB, C7ED , HFP, ACTMJ, SALIJ, CA, MGO, TSH #### [facility] ([facility]) [address] [place] [address] 61690 Sodium [Moles/Vol] 140 133-143 mmol/L Normal 03-31-2020 [facility] nter ([id number]) Comment: Performed By: #### CKB, C7ED , HFP, ACTMJ, SALIJ, CA, MGO, TSH #### [facility] ([facility]) [address] [place] [address] 85229 Urea nitrogen [Mass/Vol] 24 7-22 mg/dL High 03-31 [facility] nter ([id number]) Comment: Performed By: #### CKB, C7ED , HFP, ACTMJ, SALIJ, CA, MGO, TSH #### [facility] ([facility]) [address] [place] [address] 25980 Urea nitrogen/Creatinine [Mass 24 mg/mg Normal 03-31-2020 [facility] ratio] [facility] ([id number]) Comment: Performed By: #### CKB, C7ED , HFP, ACTMJ, SALIJ, CA, MGO, TSH #### [facility] [facility]) [address] [place] [address] [id number] cbc and electronic diff on 2020-03-31 Basophils (Bld) [#/Vol] 0.04 0.00-0.09 K/uL Normal 2019 [facility] (08242) Comment: Performed By: #### CKB, C7ED , HFP, ACTMJ, SALIJ, CA, MGO, TSH #### [facility] ([facility]) [address] [place] [address] 06678 Basophils/100 WBC (Bld) 0.2 % Normal 2019 [facility] nter (95277) Comment: Performed By: #### CKB, C7ED , HFP, ACTMJ, SALIJ, CA, MGO, TSH #### [facility] ([facility]) [address] [place] [address] 17114 DIFF STATUS Electronic Differential Normal 03-09 [facility] (76242) Comment: Performed By: #### CKB, C7ED , HFP, ACTMJ, SALIJ, CA, MGO, TSH #### [facility] ([facility]) [address] [place] [address] 81505 Eosinophils (Bld) 0.46 0.00-0.48 K/uL Normal 03-31-2020 [facility] [#/Vol] [facility] (75200) Comment: Performed By: #### CKB, C7ED , HFP, ACTMJ, SALIJ, CA, MGO, TSH #### [facility] ([facility]) [address] [place] [address] 14300 Eosinophils/100 WBC (Bld) 3.9 % Normal 03-09 [facility] nter (03307) Comment: Performed By: #### CKB, C7ED , HFP, ACTMJ, SALIJ, CA, MGO, TSH #### [facility] ([facility]) [address] [place] [address] 95913 Hematocrit (Bld) [Volume 39.2 39.6-48.8 % Low 03-31 [facility] fraction] [facility] (24800) Comment: Performed By: #### CKB, C7ED , HFP, ACTMJ, SALIJ, CA, MGO, TSH #### [facility] ([facility]) [address] [place] [address] 77712 Hemoglobin (Bld) 12.8 13.4-16.8 g/dL Low 03-31-2020 [facility] [Mass/Vol] [facility] (12442) Comment: Performed By: #### CKB, C7ED , HFP, ACTMJ, SALIJ, CA, MGO, TSH #### [facility] ([facility]) [address] [place] [address] 91592 Immature Grans % 1.3 % Normal 03-31-2020 [facility] (00 000) Comment: Performed By: #### CKB, C7ED , HFP, ACTMJ, SALIJ, CA, MGO, TSH #### [facility] ([facility]) [address] [place] [address] 26593 Immature Grans Absolute 0.15 <=0.08 K/uL High 2019 [facility] nter (15033) Comment: Performed By: #### CKB, C7ED , HFP, ACTMJ, SALIJ, CA, MGO, TSH #### [facility] ([facility]) [address] [place] [address] 13673 Lymphocytes (Bld) 1.35 0.83-3.57 K/uL Normal 03-31-2020 [facility] [#/Vol] [facility] (63844) Comment: Performed By: #### CKB, C7ED , HFP, ACTMJ, SALIJ, CA, MGO, TSH #### [facility] ([facility]) [address] [place] [address] 36461 Lymphocytes/100 WBC (Bld) 11.3 % Normal 03-09 [facility] nter (58763) Comment: Performed By: #### CKB, C7ED , HFP, ACTMJ, SALIJ, CA, MGO, TSH #### [facility] ([facility]) [address] [place] [address] 38382 MCV (RBC) [Entitic vol] 91.0 79.0-94.5 fL Normal 2019 [facility] (01594) Comment: Performed By: #### CKB, C7ED , HFP, ACTMJ, SALIJ, CA, MGO, TSH #### [facility] ([facility]) [address] [place] [address] 14918 Mean Cell Hgb 29.7 26.1-33.3 pg Normal 03-31-2020 [facility] nter (58658) Comment: Performed By: #### CKB, C7ED , HFP, ACTMJ, SALIJ, CA, MGO, TSH #### [facility] ([facility]) [address] [place] [address] 17565 Mean Cell Hgb Conc 32.7 31.9-36.5 g/dL Normal 03-31-2020 [facility] nter (99456) Comment: Performed By: #### CKB, C7ED , HFP, ACTMJ, SALIJ, CA, MGO, TSH #### [facility] ([facility]) [address] [place] [address] 66802 Monocytes (Bld) [#/Vol] 1.22 0.24-0.93 K/uL High 2019 [facility] (69775) Comment: Performed By: #### CKB, C7ED , HFP, ACTMJ, SALIJ, CA, MGO, TSH #### [facility] ([facility]) [address] [place] [address] 67633 Monocytes/100 WBC (Bld) 10.3 % Normal 2019 [facility] nter (92292) Comment: Performed By: #### CKB, C7ED , HFP, ACTMJ, SALIJ, CA, MGO, TSH #### [facility] ([facility]) [address] [place] [address] 57654 Nucleated RBC (Bld) 0.0 <=0.2 /100 WBC Normal 03-31-2020 [facility] [#/Vol] [facility] (29764) Comment: Performed By: #### CKB, C7ED , HFP, ACTMJ, SALIJ, CA, MGO, TSH #### [facility] ([facility]) [address] [place] [address] 00859 Platelet mean volume 11.4 8.7-12.3 fL Normal 0 [facility] (Bld) [Entitic vol] [facility] (79025) Comment: Performed By: #### CKB, C7ED , HFP, ACTMJ, SALIJ, CA, MGO, TSH #### [facility] ([facility]) [address] [place] [address] 23048 Platelets (Bld) [#/Vol] 197 146-337 K/uL Normal 2019 [facility] (58438) Comment: Performed By: #### CKB, C7ED , HFP, ACTMJ, SALIJ, CA, MGO, TSH #### [facility] ([facility]) [address] [place] [address] 05387 RBC (Bld) [#/Vol] 4.31 4.38-5.83 M/uL Low 03-31-2020 [facility] nter (76327) Comment: Performed By: #### CKB, C7ED , HFP, ACTMJ, SALIJ, CA, MGO, TSH #### [facility] ([facility]) [address] [place] [address] 37053 RBC (Bld) [#/Vol] 13.4 10.9-14.3 % Normal 03-31-2020 [facility]ter (98096) Comment: Performed By: #### CKB, C7ED , HFP, ACTMJ, SALIJ, CA, MGO, TSH #### [facility] ([facility]) [address] [place] [address] 50019 Segs + Bands Auto 73.0 % Normal 03-31-2020 O [facility] (00 000) Comment: Performed By: #### CKB, C7ED , HFP, ACTMJ, SALIJ, CA, MGO, TSH #### [facility] ([facility]) [address] [place] [address] 72177 Segs + Bands,Absolute Auto 8.70 1.57-6.19 K/uL High [facility] (80332) Comment: Performed By: #### CKB, C7ED , HFP, ACTMJ, SALIJ, CA, MGO, TSH #### [facility] ([facility]) [address] [place] [address] 16929 WBC (Bld) [#/Vol] 11.90 3.73-10.10 K/uL High 03-31-2020 [facility] nter (35502) Comment: Performed By: #### CKB, C7ED , HFP, ACTMJ, SALIJ, CA, MGO, TSH #### [facility] ([facility]) [address] [place] [address] 46743 No panel information on 2020-03-31 Anion gap 13 7 - 17 mmol/L 03-31-2020 [facility]/Vol[facility] (83378) Chloride [Moles/Vol] 103 98 - 108 mmol/L 0 [facility] (46177) CO2 [Moles/Vol] 28 22 - 30 mmol/L 03-31-2020 [facility] (87707) Creatinine 1.08 0.7 - mg/dL [facility]-31-[facility] [Mass/[facility] 1.3 [facility] (88638) GFR/1.73 sq >=60 >=60 mL/min/{1.7 03-31-2020 [facility] M.predicted MDRD mL/min/1 3_m2} MED ICAL (S/P/Bld) [Vol .73sqM CENTE R rate/Area] ([facility]) Glucose [Mass/Vol] 105 70 - 99 mg/dL High 03-31-2020 [facility] ([facility]) Interpretation and Abnormal 03-31-2020 [facility] review of laboratory MEDICAL results [place] ([facility]) Interpretation and Normal 03-31-2020 [facility] review of laboratory MEDICAL results [place] ([facility]) Magnesium [Mass/Vol] 1.8 1.6 - mg/dL 0 [facility] 2.6 [facility] ([facility]) Osmolality Calc 297 OTH - 03-31-2020 [facility] [Osmolality] [facility] ([facility]) Phosphate [Mass/Vol] 3.5 2.2 - mg/dL 0 [facility] 4.6 [facility] ([facility]) Potassium 4.1 3.5 - 5 mmol/L 03-31-2020 [facility] [Moles/Vol] [facility] ([facility]) Sodium [Moles/Vol] 140 133 - mmol/L 03-31-2020 [facility] 143 [facility] ([facility]) Urea nitrogen 22 7 - 22 mg/dL 03-31-2020 [facility] [Mass/Vol] [facility] ([facility]) Urea 20 mg/mg 03-31-2020 [facility] nitrogen/Creatinine MEDICAL [Mass ratio] [place] ([facility]) Anion gap 13 7 - 17 mmol/L 03-31-2020 [facility] [Moles/Vol] [facility] ([facility]) Chloride [Moles/Vol] 106 98 - 108 mmol/L 0 [facility] ([facility]) CO2 [Moles/Vol] 25 22 - 30 mmol/L 03-31-2020 [facility] ([facility]) Creatinine 1.02 0.7 - mg/dL 03-31-2020 [facility] [Mass/Vol] 1.3 [facility] ([facility]) GFR/1.73 sq >=60 >=60 mL/min/{1.7 03-31-2020 [facility] M.predicted MDRD mL/min/1 3_m2} MED ICAL (S/P/Bld) [Vol .73sqM CENTE R rate/Area] ([facility]) Glucose [Mass/Vol] 117 70 - 99 mg/dL High 03-31-2020 [facility] ([facility]) Interpretation and Abnormal 03-31-2020 [facility] review of laboratory MEDICAL results [place] ([facility]) Interpretation and Normal 03-31-2020 [facility] review of laboratory MEDICAL results [place] ([facility]) Magnesium [Mass/Vol] 1.9 1.6 - mg/dL 0 [facility] 2.6 [facility] ([facility]) Osmolality Calc 298 OTH - 03-31-2020 [facility] [Osmolality] [facility] ([facility]) Phosphate [Mass/Vol] 3.8 2.2 - mg/dL 0 [facility] 4.6 [facility] ([facility]) Potassium 3.9 3.5 - 5 mmol/L 03-31-2020 [facility] [Moles/Vol] [facility] ([facility]) Sodium [Moles/Vol] 140 133 - mmol/L 03-31-2020 [facility] 143 [facility] ([facility]) Urea nitrogen 24 7 - 22 mg/dL High 03-31-2020 [facility] [Mass/Vol] [facility] ([id number]) Urea 24 mg/mg 03-31-2020 [facility] nitrogen/Creatinine MEDICAL [Mass ratio] [place] ([facility]) Basophils (Bld) <0.04 0 - 0.09 10*3/uL 03-31-2020 [facility] [#/Vol] [facility] (53061) Basophils/100 WBC 0.2 % 03-31-2020 [facility] (Bld) [facility] ([facility]) DIFF STATUS Electronic 03-31-2020 [facility] Differential [facility] ([facility]) Eosinophils (Bld) 0.46 0 - 0.48 K/uL 03-31-2020 [facility] [#/Vol] [facility] (77005) Eosinophils/100 WBC 3.9 % 03-31-2020 [facility] (Bld) [facility] ([facility]) Erythrocyte 13.4 10.9 - % 03-31-2020 [facility] distribution width 14.3 M EDICAL (RBC) [Ratio] CENTER ([facility]) Hematocrit (Bld) 39.2 39.6 - % Low 03-31-2020 [facility] [Volume fraction] 48.8 ME DICAL [place] ([facility]) Hemoglobin (Bld) 12.8 13.4 - g/dL Low 03-31-2020 [facility] [Mass/Vol] 16.8 [facility] ([facility]) Immature 0.15 <=0.08 K/uL High 03-31-2020 [facility] granulocytes (Bld) M EDICAL [#/Vol] [place] ([facility]) Immature 1.3 % 03-31-2020 [facility] granulocytes/100 WBC MEDICAL (Bld) [place] ([facility]) Interpretation and Abnormal 03-31-2020 [facility] review of laboratory MEDICAL results [place] ([facility]) Lymphocytes (Bld) 1.35 0.83 - K/uL 03-31-2020 [facility] [#/Vol] 3.57 [facility] ([facility]) Lymphocytes/100 WBC 11.3 % 03-31-2020 [facility] (Bld) [facility] ([facility]) MCH (RBC) [Entitic 29.7 26.1 - pg 03-31-2020 [facility] mass] 33.3 [facility] ([facility]) MCHC (RBC) 32.7 31.9 - g/dL 03-31-2020 [facility] [Mass/Vol] 36.5 [facility] ([facility]) MCV (RBC) [Entitic 91.0 79 - fL 03-31-2020 [facility] vol] 94.5 [facility] ([facility]) Monocytes (Bld) 1.22 0.24 - K/uL High 03-31-2020 [facility] [#/Vol] 0.93 [facility] ([facility]) Monocytes/100 WBC 10.3 % 03-31-2020 [facility] (Bld) [facility] ([facility]) Neutrophils (Bld) 8.70 1.57 - K/uL High 03-31-2020 [facility] [#/Vol] 6.19 [facility] ([facility]) Nucleated RBC/100 0.0 <=0.2 % 03-31-2020 [facility] WBC (Bld) [Ratio] /100 [facility] ([id number]) Platelet mean volume 11.4 8.7 - fL 0 [facility] (Bld) [Entitic vol] 12.3 [facility] (14579) Platelets (Bld) 197 146 - K/uL 03-31-2020 [facility] [#/Vol] [facility] (61750) RBC (Bld) [#/Vol] 4.31 OTH - 10*6/uL Low 03-31-2020 [facility] (12100) Segmented 73.0 % 03-31-2020 [facility] neutrophils/100 WBC [facility] (Bld) [place] (32203) WBC (Bld) [#/Vol] 11.90 3.73 - K/uL High 03-31-2020 [facility] 10.1 [facility] ([facility]) phosphate, inorganic on 2020-03-30 Phosphorous 4.1 2.2-4.6 mg/dL Normal 03-30-2020 [facility] (00 000) Comment: Performed By: #### CKB, C7ED , HFP, ACTMJ, SALIJ, CA, MGO, TSH #### [facility] ([facility]) [address] [place] [address] 18037 Phosphorous 3.7 2.2-4.6 mg/dL Normal 03-30-2020 [facility] (00 000) Comment: Performed By: #### CKB, C7ED , HFP, ACTMJ, SALIJ, CA, MGO, TSH #### [facility] ([facility]) [address] [place] [address] 63847 magnesium on 03-30 Magnesium [Mass/Vol] 1.9 1.6-2.6 mg/dL Normal 0 [facility] nter (35266) Comment: Performed By: #### CKB, C7ED , HFP, ACTMJ, SALIJ, CA, MGO, TSH #### [facility] ([facility]) [address] [place] [address] 73973 Magnesium [Mass/Vol] 2.0 1.6-2.6 mg/dL Normal 0 [facility] nter (99691) Comment: Performed By: #### CKB, C7ED , HFP, ACTMJ, SALIJ, CA, MGO, TSH #### [facility] ([facility] JO[facility]) [address] [place] [address] 48758 chem 7 (lytes,bun,crea,gluc) on 2020-03-30 Anion gap [Moles/Vol] 14 7-17 mmol/L Normal 03-30-20 20 [facility] nter (83839) Comment: Performed By: #### CKB, C7ED , HFP, ACTMJ, SALIJ, CA, MGO, TSH #### [facility] ([facility]) [address] [place] [address] 29055 Chloride [Moles/Vol] 105 98-108 mmol/L Normal 0 [facility] nter (30386) Comment: Performed By: #### CKB, C7ED , HFP, ACTMJ, SALIJ, CA, MGO, TSH #### [facility] ([facility] JO[facility]) [address] [place] [address] 13618 CO2 [Moles/Vol] 25 22-30 mmol/L Normal 03-30-2020 [facility] nter (27208) Comment: Performed By: #### CKB, C7ED , HFP, ACTMJ, SALIJ, CA, MGO, TSH #### [facility] ([facility]) [address] [place] [address] 15019 Creatinine [Mass/Vol] 1.07 0.70-1.30 mg/dL Normal 03-30-20 20 [facility] (70577) Comment: Performed By: #### CKB, C7ED , HFP, ACTMJ, SALIJ, CA, MGO, TSH #### [facility] ([facility]) [address] [place] [address] 31422 EST GFR, 60 >=60 mL/min/1.73sqM Normal 03-30-20 [facility] (00874) Comment: Performed By: #### CKB, C7ED , HFP, ACTMJ, SALIJ, CA, MGO, TSH #### [facility] ([facility]) [address] [place] [address] 93993 EST GFR,Non 60 >=60 mL/min/1.73sqM Normal 03-30 [facility] (25128) Comment: Performed By: #### CKB, C7ED , HFP, ACTMJ, SALIJ, CA, MGO, TSH #### [facility] ([facility]) [address] [place] [address] 43969 Glucose [Mass/Vol] 119 70-99 mg/dL High 03-30-2020 [facility] nter (81482) Comment: Performed By: #### CKB, C7ED , HFP, ACTMJ, SALIJ, CA, MGO, TSH #### [facility] ([facility]) [address] [place] [address] 34117 Osmolality [Osmolality] 299 278-305 mOsm/kg Normal 2019 [facility] (77738) Comment: Performed By: #### CKB, C7ED , HFP, ACTMJ, SALIJ, CA, MGO, TSH #### [facility] ([facility]) [address] [place] [address] 85691 Potassium [Moles/Vol] 4.1 3.5-5.0 mmol/L Normal 03-30-20 [facility] (30293) Comment: Performed By: #### CKB, C7ED , HFP, ACTMJ, SALIJ, CA, MGO, TSH #### [facility] ([facility]ale DI[facility]) [address] [place] [address] 73679 Sodium [Moles/Vol] 140 133-143 mmol/L Normal 03-30-2020 [facility]ter (49174) Comment: Performed By: #### CKB, C7ED , HFP, ACTMJ, SALIJ, CA, MGO, TSH #### [facility] ([facility]) [address] [place] [address] 09738 Urea nitrogen [Mass/Vol] 25 7-22 mg/dL High 03-30 [facility] (85702) Comment: Performed By: #### CKB, C7ED , HFP, ACTMJ, SALIJ, CA, MGO, TSH #### [facility] ([facility]) [address] [place] [address] 04634 Urea nitrogen/Creatinine [Mass 23 mg/mg Normal 03-30-2020 [facility] ratio] [facility] (23764) Comment: Performed By: #### CKB, C7ED , HFP, ACTMJ, SALIJ, CA, MGO, TSH #### [facility] ([facility]) [address] [place] [address] 62032 Anion gap [Moles/Vol] 12 7-17 mmol/L Normal 03-30-20 20 [facility]ter (78336) Comment: Performed By: #### CKB, C7ED , HFP, ACTMJ, SALIJ, CA, MGO, TSH #### [facility] ([facility]) [address] [place] [address] 53355 Chloride [Moles/Vol] 110 98-108 mmol/L High 0 [facility] (42925) Comment: Performed By: #### CKB, C7ED , HFP, ACTMJ, SALIJ, CA, MGO, TSH #### [facility] ([facility]) [address] [place] [address] 77866 CO2 [Moles/Vol] 24 22-30 mmol/L Normal 03-30-2020 [facility] (50277) Comment: Performed By: #### CKB, C7ED , HFP, ACTMJ, SALIJ, CA, MGO, TSH #### [facility] ([facility]) [address] [place] [address] 88182 Creatinine [Mass/Vol] 1.18 0.70-1.30 mg/dL Normal 03-30-20 [facility] (92112) Comment: Performed By: #### CKB, C7ED , HFP, ACTMJ, SALIJ, CA, MGO, TSH #### [facility] ([facility]) [address] [place] [address] 05028 EST GFR, 60 >=60 mL/min/1.73sqM Normal 03-30-20 20 [facility] (22206) Comment: Performed By: #### CKB, C7ED , HFP, ACTMJ, SALIJ, CA, MGO, TSH #### [facility] ([facility]) [address] [place] [address] 20454 EST GFR,Non 60 >=60 mL/min/1.73sqM Normal 03-30 [facility] (63264) Comment: Performed By: #### CKB, C7ED , HFP, ACTMJ, SALIJ, CA, MGO, TSH #### [facility] ([facility]) [address] [place] [address] 86022 Glucose [Mass/Vol] 115 70-99 mg/dL High 03-30-2020 [facility] (60656) Comment: Performed By: #### CKB, C7ED , HFP, ACTMJ, SALIJ, CA, MGO, TSH #### [facility] ([facility]) [address] [place] [address] 46101 Osmolality [Osmolality] 302 278-305 mOsm/kg Normal 2019 [facility] (61226) Comment: Performed By: #### CKB, C7ED , HFP, ACTMJ, SALIJ, CA, MGO, TSH #### [facility] ([facility]) [address] [place] [address] 95731 Potassium [Moles/Vol] 3.8 3.5-5.0 mmol/L Normal 03-30-20 20 [facility] (11719) Comment: Performed By: #### CKB, C7ED , HFP, ACTMJ, SALIJ, CA, MGO, TSH #### [facility] ([facility]) [address] [place] [address] 01333 Sodium [Moles/Vol] 142 133-143 mmol/L Normal 03-30-2020 [facility] (32138) Comment: Performed By: #### CKB, C7ED , HFP, ACTMJ, SALIJ, CA, MGO, TSH #### [facility] ([facility]) [address] [place] [address] 02149 Urea nitrogen [Mass/Vol] 27 7-22 mg/dL High 03-30 [facility] (01585) Comment: Performed By: #### CKB, C7ED , HFP, ACTMJ, SALIJ, CA, MGO, TSH #### [facility] ([facility]) [address] [place] [address] 71472 Urea nitrogen/Creatinine [Mass 23 mg/mg Normal 03-30-2020 [facility] ratio] [facility] (07312) Comment: Performed By: #### CKB, C7ED , HFP, ACTMJ, SALIJ, CA, MGO, TSH #### [facility] ([facility]) [address] [place] [address] 56382 cbc and electronic diff on 2020-03-30 Basophils (Bld) [#/Vol] 0.04 0.00-0.09 K/uL Normal 2019 [facility] (97080) Comment: Performed By: #### CKB, C7ED , HFP, ACTMJ, SALIJ, CA, MGO, TSH #### [facility]) [address] [place] [id number] Basophils/100 WBC (Bld) 0.2 % Normal 2019 [facility] nter ([id number]) Comment: Performed By: #### CKB, C7ED , HFP, ACTMJ, SALIJ, CA, MGO, TSH #### [facility] ([facility]) [address] [place] [address]25 DIFF STATUS Electronic Differential Normal 03-09 [facility] ([id number]) Comment: Performed By: #### CKB, C7ED , HFP, ACTMJ, SALIJ, CA, MGO, TSH #### [facility] ([facility]) [address] [place] [address] 24515 Eosinophils (Bld) 0.47 0.00-0.48 K/uL Normal 03-30-2020 [facility] [#/Vol] [facility] ([id number]) Comment: Performed By: #### CKB, C7ED , HFP, ACTMJ, SALIJ, CA, MGO, TSH #### [facility] ([facility]) [address] [place] [address] 28531 Eosinophils/100 WBC (Bld) 4.2 % Normal 03-09 [facility] nter ([id number]) Comment: Performed By: #### CKB, C7ED , HFP, ACTMJ, SALIJ, CA, MGO, TSH #### [facility] ([facility]) [address] [place] [address] 77745 Hematocrit (Bld) [Volume 40.1 39.6-48.8 % Normal 03-30 [facility] fraction] [facility] ([id number]) Comment: Performed By: #### CKB, C7ED , HFP, ACTMJ, SALIJ, CA, MGO, TSH #### [facility] ([facility]) [address] [place] [address] 23490 Hemoglobin (Bld) 13.1 13.4-16.8 g/dL Low 03-30-2020 [facility] [Mass/Vol] [facility] ([id number]) Comment: Performed By: #### CKB, C7ED , HFP, ACTMJ, SALIJ, CA, MGO, TSH #### [facility] ([facility]) [address] [place] [address] 01794 Immature Grans % 0.9 % Normal 03-30-2020 [facility] (00 000) Comment: Performed By: #### CKB, C7ED , HFP, ACTMJ, SALIJ, CA, MGO, TSH #### [facility] [facility]) [address] [place] [address] 70036 Immature Grans Absolute 0.10 <=0.08 K/uL High 2019 [facility] nter (42550) Comment: Performed By: #### CKB, C7ED , HFP, ACTMJ, SALIJ, CA, MGO, TSH #### [facility] ([facility]) [address] [place] [address] 62963 Lymphocytes (Bld) 1.39 0.83-3.57 K/uL Normal 03-30-2020 [facility] [#/Vol] [facility] (52639) Comment: Performed By: #### CKB, C7ED , HFP, ACTMJ, SALIJ, CA, MGO, TSH #### [facility] ([facility]) [address] [place] [address] 69227 Lymphocytes/100 WBC (Bld) 12.4 % Normal 03-09 [facility] nter (15303) Comment: Performed By: #### CKB, C7ED , HFP, ACTMJ, SALIJ, CA, MGO, TSH #### [facility] ([facility]) [address] [place] [address] 27183 MCV (RBC) [Entitic vol] 91.8 79.0-94.5 fL Normal 2019 [facility] (18719) Comment: Performed By: #### CKB, C7ED , HFP, ACTMJ, SALIJ, CA, MGO, TSH #### [facility] ([facility]) [address] [place] [address] 74058 Mean Cell Hgb 30.0 26.1-33.3 pg Normal 03-30-2020 [facility] nter (86710) Comment: Performed By: #### CKB, C7ED , HFP, ACTMJ, SALIJ, CA, MGO, TSH #### [facility] ([facility]) [address] [place] [address] 95889 Mean Cell Hgb Conc 32.7 31.9-36.5 g/dL Normal 03-30-2020 [facility] nter (00256) Comment: Performed By: #### CKB, C7ED , HFP, ACTMJ, SALIJ, CA, MGO, TSH #### [facility] ([facility]) [address] [place] [address] 90030 Monocytes (Bld) [#/Vol] 0.99 0.24-0.93 K/uL High 2019 [facility] (10264) Comment: Performed By: #### CKB, C7ED , HFP, ACTMJ, SALIJ, CA, MGO, TSH #### [facility] ([facility]) [address] [place] [address] 26306 Monocytes/100 WBC (Bld) 8.9 % Normal 2019 [facility] nter (46481) Comment: Performed By: #### CKB, C7ED , HFP, ACTMJ, SALIJ, CA, MGO, TSH #### [facility] ([facility]) [address] [place] [address] 58261 Nucleated RBC (Bld) 0.0 <=0.2 /100 WBC Normal 03-30-2020 [facility] [#/Vol] [facility] (83066) Comment: Performed By: #### CKB, C7ED , HFP, ACTMJ, SALIJ, CA, MGO, TSH #### [facility] ([facility]) [address] [place] [address] 55423 Platelet mean volume 11.1 8.7-12.3 fL Normal 0 [facility] (Bld) [Entitic vol] [facility] (71944) Comment: Performed By: #### CKB, C7ED , HFP, ACTMJ, SALIJ, CA, MGO, TSH #### [facility] ([facility]) [address] [place] [address] 96298 Platelets (Bld) [#/Vol] 196 146-337 K/uL Normal 2019 [facility] (99820) Comment: Performed By: #### CKB, C7ED , HFP, ACTMJ, SALIJ, CA, MGO, TSH #### [facility] ([facility]) [address] [place] [address] 92627 RBC (Bld) [#/Vol] 4.37 4.38-5.83 M/uL Low 03-30-2020 O [facility] nter (68394) Comment: Performed By: #### CKB, C7ED , HFP, ACTMJ, SALIJ, CA, MGO, TSH #### [facility] ([facility]) [address] [place] [address] 65116 RBC (Bld) [#/Vol] 13.5 10.9-14.3 % Normal 03-30-2020 O [facility] nter (92607) Comment: Performed By: #### CKB, C7ED , HFP, ACTMJ, SALIJ, CA, MGO, TSH #### [facility] ([facility]) [address] [place] [address] 90994 Segs + Bands Auto 73.4 % Normal 03-30-2020 O [facility] (00 000) Comment: Performed By: #### CKB, C7ED , HFP, ACTMJ, SALIJ, CA, MGO, TSH #### [facility] ([facility]) [address] [place] [address] 88725 Segs + Bands,Absolute Auto 8.20 1.57-6.19 K/uL High [facility] (39407) Comment: Performed By: #### CKB, C7ED , HFP, ACTMJ, SALIJ, CA, MGO, TSH #### [facility] ([facility]) [address] [place] [address] WBC (Bld) [#/Vol] 11.17 3.73-10.10 K/uL High 03-30-2020 [facility] (79571) Comment: Performed By: #### CKB, C7ED , HFP, ACTMJ, SALIJ, CA, MGO, TSH #### [facility] ([facility]) [address] [place] [address] No panel information on 2020-03-30 Anion gap 14 7 - 17 mmol/L 03-30-2020 [facility] [Moles/Vol] [facility] (26501) Chloride [Moles/Vol] 105 98 - 108 mmol/L 0 [facility] (96264) CO2 [Moles/Vol] 25 22 - 30 mmol/L 03-30-2020 [facility] (07662) Creatinine 1.07 0.7 - mg/dL 03-30-2020 [facility] [Mass/Vol] 1.3 [facility] (94763) GFR/1.73 sq >=60 >=60 mL/min/{1.7 03-30-2020 [facility] M.predicted MDRD mL/min/1 3_m2} MED ICAL (S/P/Bld) [Vol .73sqM CENTE R rate/Area] (13816) Glucose [Mass/Vol] 119 70 - 99 mg/dL High 03-30-2020 [facility] (16496) Interpretation and Abnormal 03-30-2020 [facility] review of laboratory MEDICAL results [facility] (27193) Interpretation and Normal 03-30-2020 [facility] review of laboratory [facility] results [facility] (47068) Magnesium [Mass/Vol] 1.9 1.6 - mg/dL 0 U [facility] 2.6 [facility] (87671) Osmolality Calc 299 OTH - 03-30-2020 [facility] [Osmolality] [facility] (01709) Phosphate [Mass/Vol] 4.1 2.2 - mg/dL 0 [facility] 4.6 [facility] (87581) Potassium 4.1 3.5 - 5 mmol/L 03-30-2020 [facility] [Moles/Vol] [facility] ([facility]) Sodium [Moles/Vol] 140 133 - mmol/L 03-30-2020 [facility] 143 [facility] ([facility]) Urea nitrogen 25 7 - 22 mg/dL High 03-30-2020 [facility] [Mass/Vol] [facility] ([facility]) Urea 23 mg/mg 03-30-2020 [facility] nitrogen/Creatinine [facility] [Mass ratio] [facility] ([facility]) Anion gap 12 7 - 17 mmol/L 03-30-2020 [facility] [Moles/Vol] [facility] ([facility]) Chloride [Moles/Vol] 110 98 - 108 mmol/L High 0 [facility] ([facility]) CO2 [Moles/Vol] 24 22 - 30 mmol/L 03-30-2020 [facility] ([facility]) Creatinine 1.18 0.7 - mg/dL 03-30-2020 [facility] [Mass/Vol] 1.3 [facility] ([facility]) GFR/1.73 sq >=60 >=60 mL/min/{1.7 03-30-2020 [facility] M.predicted MDRD mL/min/1 3_m2} MED ICAL (S/P/Bld) [Vol .73sqM [facility]ENT[facility] R rate/Area] ([facility]) Glucose [Mass/Vol] 115 70 - 99 mg/dL High 03-30-2020 [facility] ([facility]) Interpretation and Normal 03-30-2020 [facility] review of laboratory MEDICAL results [place] ([facility]) Interpretation and Abnormal 03-30-2020 [facility] review of laboratory MEDICAL results [place] ([facility]) Magnesium [Mass/Vol] 2.0 1.6 - mg/dL 0 [facility] 2.6 [facility] ([facility]) Osmolality Calc 302 OTH - 03-30-2020 [facility] [Osmolality] [facility] ([facility]) Phosphate [Mass/Vol] 3.7 2.2 - mg/dL 0 [facility] 4.6 [facility] ([facility]) Potassium 3.8 3.5 - 5 mmol/L 03-30-2020 [facility] [Moles/Vol] [facility] ([facility]) Sodium [Moles/Vol] 142 133 - mmol/L 03-30-2020 [facility] 143 [facility] ([facility]) Urea nitrogen 27 7 - 22 mg/dL High 03-30-2020 [facility] [Mass/Vol] [facility] ([facility]) Urea 23 mg/mg 03-30-2020 [facility] nitrogen/Creatinine [facility] [Mass ratio] [facility] ([facility]) Basophils (Bld) <0.04 0 - 0.09 10*3/uL 03-30-2020 [facility] [#/Vol] [facility] ([facility]) Basophils/100 WBC 0.2 % 03-30-2020 [facility] (Bld) [facility] ([facility]) DIFF STATUS Electronic 03-30-2020 [facility] Differential [facility] ([facility]) Eosinophils (Bld) 0.47 0 - 0.48 K/uL 03-30-2020 [facility] [#/Vol] [facility] ([facility]) Eosinophils/100 WBC 4.2 % 03-30-2020 [facility] (Bld) [facility] ([facility]) Erythrocyte 13.5 10.9 - % 03-30-2020 [facility] distribution width 14.3 M EDICAL (RBC) [Ratio] [facility] ([facility]) Hematocrit (Bld) 40.1 39.6 - % 03-30-2020 [facility] [Volume fraction] 48.8 ME DICAL [facility] ([facility]) Hemoglobin (Bld) 13.1 13.4 - g/dL Low 03-30-2020 [facility] [Mass/Vol] 16.8 [facility] ([facility]) Immature 0.10 <=0.08 K/uL High 03-30-2020 [facility] granulocytes (Bld) M EDICAL [#/Vol] [facility] ([facility]) Immature 0.9 % 03-30-2020 [facility] granulocytes/100 WBC MEDICAL (Bld) [facility] ([facility]) Interpretation and Abnormal 03-30-2020 [facility] review of laboratory MEDICAL results [place] ([facility]) Lymphocytes (Bld) 1.39 0.83 - K/uL 03-30-2020 [facility] [#/Vol] 3.57 [facility] ([facility]) Lymphocytes/100 WBC 12.4 % 03-30-2020 [facility] (Bld) [facility] ([facility]) MCH (RBC) [Entitic 30.0 26.1 - pg 03-30-2020 [facility] mass] 33.3 [facility] ([facility]) MCHC (RBC) 32.7 31.9 - g/dL 03-30-2020 [facility] [Mass/Vol] 36.5 [facility] ([facility]) MCV (RBC) [Entitic 91.8 79 - fL 03-30-2020 [facility] vol] 94.5 [facility] ([facility]) Monocytes (Bld) 0.99 0.24 - K/uL High 03-30-2020 [facility] [#/Vol] 0.93 [facility] ([facility]) Monocytes/100 WBC 8.9 % 03-30-2020 [facility] (Bld) [facility] ([facility]) Neutrophils (Bld) 8.20 1.57 - K/uL High 03-30-2020 [facility] [#/Vol] 6.19 [facility] ([facility]) Nucleated RBC/100 0.0 <=0.2 % 03-30-2020 [facility] WBC (Bld) [Ratio] /100 WBC RI DICAL [facility] ([facility]) Platelet mean volume 11.1 8.7 - fL 0 [facility] (Bld) [Entitic vol] 12.3 [facility] ([facility]) Platelets (Bld) 196 146 - K/uL 03-30-2020 [facility] [#/Vol] 337 [facility] ([facility]) RBC (Bld) [#/Vol] 4.37 OTH - 10*6/uL Low 03-30-2020 [facility] ([facility]) Segmented 73.4 % 03-30-2020 [facility] neutrophils/100 WBC MEDICAL (Bld) [facility] ([facility]) WBC (Bld) [#/Vol] 11.17 3.73 - K/uL High 03-30-2020 [facility] 10.1 [facility] ([id number]) xr fluoro modified barium swallow with s peech on 2020-03-29 XR FLUORO MODIFIED EXAM: XR FLUORO MODIFIED BAR IUM SWALLOW WITH SPEECH, 03/29/2020 13:29 PM Normal 03-29-2020 [facility] BARIUM SWALLOW COMPARISON: No prior barium swallow studies available for comparison. [facility] er WITH SPEECH CLINICAL INDICATIONS: dysphagia post CVA [facility] TECHNIQUE: ([id number]) Multiple barium consistencies (thin, nectar, honey, puree an d solid) were administered to evaluate the swallow. Lateral videoflu oroscopy was performed in conjunction with Speech Pathology. Fluoroscopy Time: 2.5 min FINDINGS: A nasoenteric tube is present within the nasopharynx and c ervical esophagus where it then exits the field of view. Oral Phase: Oral transit is discoordinated and delayed. Bolu s formation and bolus control are reduced. There is uncontrolled spillage of content s from the oral cavity into the pharynx. Dental fillings are present. Pharyngeal Phase: Visualization of the vocal cords and trachea is reduced du e to overlap with the patient's shoulders. Laryngeal penetration and silent as piration occur with the thin and nectar liquid consistencies. Transient lar yngeal penetration, without obvious aspiration, occurs with the hon ey liquid consistency. No definite laryngeal penetration or aspirati on occur with the puree or solid. Initiation of the pharyngeal swallowing mechanism is delayed . Tongue base retraction, epiglottic excursion, and pharyngeal peristalsis are reduced. There is intermittent, mild to moderate diffuse residue re maining after the swallow. Cervical Phase: Visualization of the cervical phase is suboptimal due to ove rlap with the shoulders. There is no gross evidence of obstruction or back flow. There are degenerative changes of the cervical spine. The prevertebral soft tissues appear unremarkable. IMPRESSION: 1. 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 2. Laryngeal penetration and silent aspiration of thin and n ectar liquids. 3. Transient laryngeal penetration of honey liquids. 4. Functional impairments of the oral and pharyngeal phases as described above. 5. Nasoenteric tube present. Refer to the Speech and Language Pathologist's report for di et and therapy recommendations. Procedure performed by FLORY Barfield under the direct supervision of Dr. Chio Mcclellan. I personally viewed and interpreted these images and I have reviewed and approved this report. 2 :13 PM xr abdomen 1 view o n 2020-03-29 XR ABDOMEN 1 VIEW EXAM: XR ABDOMEN 1 VIEW, 03/28/2020 18:12 PM Normal 03-29-2020 [facility] COMPARISON: No prior abdominal radiographs available for [facility] CLINICAL INDICATIONS: ng placement [facility] FINDINGS: ([id number]) Tubes: Interval removal of the NG/OG tube and placement of a Dobbhoff tube with the tip in the proximal stomach. No definite pneumoperitoneum. There is a non obstructive b owel gas pattern. Visualized osseous structures are unremarkable for the patie nt's age. IMPRESSION: Dobbhoff tube tip in the proximal stomach. Furth er advancement is recommended if postpyloric positioning is needed. 7 :58 AM protime-inr on 2019 INR Coag (PPP) [Relative 1.1 0.9-1.1 {INR} Normal 03-29 [facility] time] [facility] (94056) Comment: Performed By: #### CKB, C7ED , HFP, ACTMJ, SALIJ, CA, MGO, TSH #### [facility] ([facility]) [address] [place] [address] 98264 PT Coag (PPP) [Time] 14.4 11.9-14.2 sec High 0 [facility] ([id number]) Comment: Performed By: #### CKB, C7ED , HFP, ACTMJ, SALIJ, CA, MGO, TSH #### [facility] ([facility]) [address] [place] [address] 09749 phosphate, inorganic on 2020-03-29 Phosphorous 3.1 2.2-4.6 mg/dL Normal 03-29-2020 [facility] (00 000) Comment: Performed By: #### CKB, C7ED , HFP, ACTMJ, SALIJ, CA, MGO, TSH #### [facility] ([facility]) [address] [place] [address] 01539 Phosphorous 2.5 2.2-4.6 mg/dL Normal 03-29-2020 [facility] (00 000) Comment: Performed By: #### CKB, C7ED , HFP, ACTMJ, SALIJ, CA, MGO, TSH #### [facility] ([facility]) [address] [place] [address] 19250 magnesium on 03-29 Magnesium [Mass/Vol] 2.1 1.6-2.6 mg/dL Normal 0 [facility] nter (21371) Comment: Performed By: #### CKB, C7ED , HFP, ACTMJ, SALIJ, CA, MGO, TSH #### [facility] ([facility]) [address] [place] [address] 39319 Magnesium [Mass/Vol] 2.1 1.6-2.6 mg/dL Normal 0 [facility] nter (19915) Comment: Performed By: #### CKB, C7ED , HFP, ACTMJ, SALIJ, CA, MGO, TSH #### [facility] ([facility]) [address] [place] [address] 37469 chem 7 (lytes,bun,crea,gluc) on 2020-03-29 Anion gap [Moles/Vol] 13 7-17 mmol/L Normal 03-29-20 20 [facility] nter (36655) Comment: Performed By: #### CKB, C7ED , HFP, ACTMJ, SALIJ, CA, MGO, TSH #### [facility] ([facility]) [address] [place] [address] 81112 Chloride [Moles/Vol] 107 98-108 mmol/L Normal 0 [facility] nter (90317) Comment: Performed By: #### CKB, C7ED , HFP, ACTMJ, SALIJ, CA, MGO, TSH #### [facility] ([facility]) [address] [place] [address] 63490 CO2 [Moles/Vol] 26 22-30 mmol/L Normal 03-29-2020 [facility] nter (30634) Comment: Performed By: #### CKB, C7ED , HFP, ACTMJ, SALIJ, CA, MGO, TSH #### [facility] ([facility]) [address] [place] [address] 06278 Creatinine [Mass/Vol] 1.05 0.70-1.30 mg/dL Normal 03-29-20 [facility] (04229) Comment: Performed By: #### CKB, C7ED , HFP, ACTMJ, SALIJ, CA, MGO, TSH #### [facility] ([facility]) [address] [place] [address] 76779 EST GFR, 60 >=60 mL/min/1.73sqM Normal 03-29-20 [facility] (55727) Comment: Performed By: #### CKB, C7ED , HFP, ACTMJ, SALIJ, CA, MGO, TSH #### [facility] ([facility]) [address] [place] [address] 98420 EST GFR,Non 60 >=60 mL/min/1.73sqM Normal 03-29 [facility] (33037) Comment: Performed By: #### CKB, C7ED , HFP, ACTMJ, SALIJ, CA, MGO, TSH #### [facility] ([facility]) [address] [place] [address] 17530 Glucose [Mass/Vol] 86 70-99 mg/dL Normal 03-29-2020 [facility] nter (73973) Comment: Performed By: #### CKB, C7ED , HFP, ACTMJ, SALIJ, CA, MGO, TSH #### [facility] ([facility]) [address] [place] [address] 97564 Osmolality [Osmolality] 299 278-305 mOsm/kg Normal 2019 [facility] (15615) Comment: Performed By: #### CKB, C7ED , HFP, ACTMJ, SALIJ, CA, MGO, TSH #### [facility] ([facility]) [address] [place] [address] 89957 Potassium [Moles/Vol] 3.7 3.5-5.0 mmol/L Normal 03-29-20 [facility] (19066) Comment: Performed By: #### CKB, C7ED , HFP, ACTMJ, SALIJ, CA, MGO, TSH #### [facility] ([facility]) [address] [place] [address] 84836 Sodium [Moles/Vol] 142 133-143 mmol/L Normal 03-29-2020 [facility]ter (68230) Comment: Performed By: #### CKB, C7ED , HFP, ACTMJ, SALIJ, CA, MGO, TSH #### [facility] ([facility]) [address] [place] [address] 42312 Urea nitrogen [Mass/Vol] 24 7-22 mg/dL High 03-29 [facility]ter (19385) Comment: Performed By: #### CKB, C7ED , HFP, ACTMJ, SALIJ, CA, MGO, TSH #### [facility] ([facility]) [address] [place] [address] 92225 Urea nitrogen/Creatinine [Mass 23 mg/mg Normal 03-29-2020 [facility] ratio] [facility] (60099) Comment: Performed By: #### CKB, C7ED , HFP, ACTMJ, SALIJ, CA, MGO, TSH #### [facility] ([facility]) [address] [place] [address] 87797 Anion gap [Moles/Vol] 13 7-17 mmol/L Normal 03-29-20 [facility] (59559) Comment: Performed By: #### CKB, C7ED , HFP, ACTMJ, SALIJ, CA, MGO, TSH #### [facility] ([facility]) [address] [place] [address] 46952 Chloride [Moles/Vol] 109 mmol/L High 0 [facility] (93489) Comment: Performed By: #### CKB, C7ED , HFP, ACTMJ, SALIJ, CA, MGO, TSH #### [facility] ([facility]) [address] [place] [address] 35361 CO2 [Moles/Vol] 23 mmol/L Normal 03-29-2020 [facility] (53435) Comment: Performed By: #### CKB, C7ED , HFP, ACTMJ, SALIJ, CA, MGO, TSH #### [facility] ([facility]) [address] [place] [address] 79646 Creatinine [Mass/Vol] 1.00 mg/dL Normal 03-29-20 20 [facility] (03888) Comment: Performed By: #### CKB, C7ED , HFP, ACTMJ, SALIJ, CA, MGO, TSH #### [facility] ([facility]) [address] [place] [address] 18724 EST GFR, 60 >=60 mL/min/1.73sqM Normal 03-29-20 20 [facility] (03237) Comment: Performed By: #### CKB, C7ED , HFP, ACTMJ, SALIJ, CA, MGO, TSH #### [facility] ([facility]) [address] [place] [address] 40251 EST GFR,Non 60 >=60 mL/min/1.73sqM Normal 03-29 [facility] (11467) Comment: Performed By: #### CKB, C7ED , HFP, ACTMJ, SALIJ, CA, MGO, TSH #### [facility] ([facility]) [address] [place] [address] 77829 Glucose [Mass/Vol] 82 mg/dL Normal 03-29-2020 [facility] (24302) Comment: Performed By: #### CKB, C7ED , HFP, ACTMJ, SALIJ, CA, MGO, TSH #### [facility] ([facility]) [address] [place] [address] 92367 Osmolality [Osmolality] 297 278-305 mOsm/kg Normal 2019 [facility] (17004) Comment: Performed By: #### CKB, C7ED , HFP, ACTMJ, SALIJ, CA, MGO, TSH #### [facility] ([facility]) [address] [place] [address] 77034 Potassium [Moles/Vol] 3.9 mmol/L Normal 03-29-20 [facility] (23564) Comment: Performed By: #### CKB, C7ED , HFP, ACTMJ, SALIJ, CA, MGO, TSH #### [facility] ([facility]) [address] [place] [address] 54871 Sodium [Moles/Vol] 141 mmol/L Normal 03-29-2020 [facility] (76962) Comment: Performed By: #### CKB, C7ED , HFP, ACTMJ, SALIJ, CA, MGO, TSH #### [facility] ([facility]) [address] [place] [address] 42061 Urea nitrogen [Mass/Vol] 23 mg/dL High 03-29 [facility] (73516) Comment: Performed By: #### CKB, C7ED , HFP, ACTMJ, SALIJ, CA, MGO, TSH #### [facility] ([facility]) [address] [place] [address] 57010 Urea nitrogen/Creatinine [Mass 23 mg/mg Normal 03-29-2020 [facility] ratio] [facility] (24222) Comment: Performed By: #### CKB, C7ED , HFP, ACTMJ, SALIJ, CA, MGO, TSH #### [facility] ([facility]) [address] [place] [id number] cbc and electronic diff on 2020-03-29 Basophils (Bld) [#/Vol] 0.04 0.00-0.09 K/uL Normal 2019 [facility] ([id number]) Comment: Performed By: #### CKB, C7ED , HFP, ACTMJ, SALIJ, CA, MGO, TSH #### [facility] ([facility]) [address] [place] [id number] Basophils/100 WBC (Bld) 0.3 % Normal 2019 [facility] nter ([id number]) Comment: Performed By: #### CKB, C7ED , HFP, ACTMJ, SALIJ, CA, MGO, TSH #### [facility] ([facility]) [address] [place] [id number] DIFF STATUS Electronic Differential Normal 03-09 [facility] ([id number]) Comment: Performed By: #### CKB, C7ED , HFP, ACTMJ, SALIJ, CA, MGO, TSH #### [facility] ([facility]) [address] [place] [address] [id number] Eosinophils (Bld) [#/Vol] 0.60 0.00-0.48 K/uL High 03-09 [facility] ([id number]) Comment: Performed By: #### CKB, C7ED , HFP, ACTMJ, SALIJ, CA, MGO, TSH #### [facility] ([facility]) [address] [place] [address] 92010 Eosinophils/100 WBC (Bld) 5.5 % Normal 03-09 [facility] nter ([id number]) Comment: Performed By: #### CKB, C7ED , HFP, ACTMJ, SALIJ, CA, MGO, TSH #### [facility] ([facility]) [address] [place] [address] 14072 Hematocrit (Bld) [Volume 41.9 39.6-48.8 % Normal 03-29 [facility] fraction] [facility] ([id number]) Comment: Performed By: #### CKB, C7ED , HFP, ACTMJ, SALIJ, CA, MGO, TSH #### [facility] ([facility]) [address] [place] [address] 95048 Hemoglobin (Bld) 13.6 13.4-16.8 g/dL Normal 03-29-2020 [facility] [Mass/Vol] [facility] ([id number]) Comment: Performed By: #### CKB, C7ED , HFP, ACTMJ, SALIJ, CA, MGO, TSH #### [facility] ([facility]) [address] [place] [address] 83341 Immature Grans % 1.1 % Normal 03-29-2020 [facility] (00 000) Comment: Performed By: #### CKB, C7ED , HFP, ACTMJ, SALIJ, CA, MGO, TSH #### [facility] ([facility]) [address] [place] [address] 32630 Immature Grans Absolute 0.12 <=0.08 K/uL High 2019 [facility] nter ([id number]) Comment: Performed By: #### CKB, C7ED , HFP, ACTMJ, SALIJ, CA, MGO, TSH #### [facility] ([facility]) [address] [place] [address] 94806 Lymphocytes (Bld) 1.43 0.83-3.57 K/uL Normal 03-29-2020 [facility] [#/Vol] [facility] ([id number]) Comment: Performed By: #### CKB, C7ED , HFP, ACTMJ, SALIJ, CA, MGO, TSH #### [facility] ([facility]) [address] [place] [address] 76723 Lymphocytes/100 WBC (Bld) 13.1 % Normal 03-09 [facility] nter ([id number]) Comment: Performed By: #### CKB, C7ED , HFP, ACTMJ, SALIJ, CA, MGO, TSH #### [facility] ([facility]) [address] [place] [address] 91579 MCV (RBC) [Entitic vol] 91.1 79.0-94.5 fL Normal 2019 [facility] ([id number]) Comment: Performed By: #### CKB, C7ED , HFP, ACTMJ, SALIJ, CA, MGO, TSH #### [facility] ([facility]) [address] [place] [address] 13301 Mean Cell Hgb 29.6 26.1-33.3 pg Normal 03-29-2020 [facility] nter (55327) Comment: Performed By: #### CKB, C7ED , HFP, ACTMJ, SALIJ, CA, MGO, TSH #### [facility] ([facility]) [address] [place] [address] 38523 Mean Cell Hgb Conc 32.5 31.9-36.5 g/dL Normal 03-29-2020 [facility] nter ([id number]) Comment: Performed By: #### CKB, C7ED , HFP, ACTMJ, SALIJ, CA, MGO, TSH #### [facility] ([facility]) [address] [place] [address] 62221 Monocytes (Bld) [#/Vol] 0.83 0.24-0.93 K/uL Normal 2019 [facility] ([id number]) Comment: Performed By: #### CKB, C7ED , HFP, ACTMJ, SALIJ, CA, MGO, TSH #### [facility] ([facility]) [address] [place] [address] 71690 Monocytes/100 WBC (Bld) 7.6 % Normal 2019 [facility] nter ([id number]) Comment: Performed By: #### CKB, C7ED , HFP, ACTMJ, SALIJ, CA, MGO, TSH #### [facility] ([facility]) [address] [place] [address] 54817 Nucleated RBC (Bld) 0.0 <=0.2 /100 WBC Normal 03-29-2020 [facility] [#/Vol] [facility] ([id number]) Comment: Performed By: #### CKB, C7ED , HFP, ACTMJ, SALIJ, CA, MGO, TSH #### [facility] ([facility]) [address] [place] [address] 26865 Platelet mean volume 11.7 8.7-12.3 fL Normal 0 [facility] (Bld) [Entitic vol] [facility] (48731) Comment: Performed By: #### CKB, C7ED , HFP, ACTMJ, SALIJ, CA, MGO, TSH #### [facility] ([facility]) [address] [place] [address] 82575 Platelets (Bld) [#/Vol] 189 146-337 K/uL Normal 2019 [facility] ([id number]) Comment: Performed By: #### CKB, C7ED , HFP, ACTMJ, SALIJ, CA, MGO, TSH #### [facility] ([facility]) [address] [place] [address] 93751 RBC (Bld) [#/Vol] 4.60 4.38-5.83 M/uL Normal 03-29-2020 O [facility] nter (04438) Comment: Performed By: #### CKB, C7ED , HFP, ACTMJ, SALIJ, CA, MGO, TSH #### [facility] ([facility]) [address] [place] [address] 58818 RBC (Bld) [#/Vol] 13.5 10.9-14.3 % Normal 03-29-2020 [facility] ([id number]) Comment: Performed By: #### CKB, C7ED , HFP, ACTMJ, SALIJ, CA, MGO, TSH #### [facility] ([facility]) [address] [place] [address] 88789 Segs + Bands Auto 72.4 % Normal 03-29-2020 O [facility] (00 000) Comment: Performed By: #### CKB, C7ED , HFP, ACTMJ, SALIJ, CA, MGO, TSH #### [facility] ([facility]) [address] [place] [address] 72988 Segs + Bands,Absolute Auto 7.93 1.57-6.19 K/uL High [facility] ([id number]) Comment: Performed By: #### CKB, C7ED , HFP, ACTMJ, SALIJ, CA, MGO, TSH #### [facility] ([facility]) [address] [place] [address] 18410 WBC (Bld) [#/Vol] 10.94 3.73-10.10 K/uL High 03-29-2020 [facility] nter (60202) Comment: Performed By: #### CKB, C7ED , HFP, ACTMJ, SALIJ, CA, MGO, TSH #### [facility] ([facility]) [address] [place] [address] 78288 No panel information on 2020-03-29 Anion gap 13 mmol/L 03-29-2020 [facility] [Moles/Vol] [facility] (73295) Chloride 107 98 - mmol/L 03-29-2020 [facility] [Moles/Vol] 108 [facility] (22436) CO2 [Moles/Vol] 26 22 - 30 mmol/L 03-29-2020 [facility] ([id number]) Creatinine 1.05 0.7 - mg/dL 03-29-2020 [facility] [Mass/Vol] 1.3 [facility] (17180) GFR/1.73 sq >=60 >=60 mL/min/{1. 03-29-2020 [facility] M.predicted MDRD mL/min/ 73_m2} MED ICAL (S/P/Bld) [Vol 1.73sqM CENTE R rate/Area] (04977) Glucose [Mass/Vol] 86 70 - 99 mg/dL 03-29-2020 [facility] (61732) Interpretation and Normal 03-29-2020 [facility] review of MEDICAL laboratory results [facility] (09082) Interpretation and Abnormal 03-29-2020 [facility] review of MEDICAL laboratory results [facility] ([id number]) Magnesium 2.1 mg/dL 03-29-2020 [facility] [Mass/Vol] [facility] (89947) Osmolality Calc 299 OTH - 03-29-2020 [facility] [Osmolality] [facility] (51513) Phosphate 3.1 2.2 - mg/dL 03-29-2020 [facility] [Mass/Vol] 4.6 [facility] (92966) Potassium 3.7 3.5 - 5 mmol/L 03-29-2020 [facility] [Moles/Vol] [facility] (78075) Sodium [Moles/Vol] 142 133 - mmol/L 03-29-2020 [facility] 143 [facility] (57650) Urea nitrogen 24 7 - 22 mg/dL High 03-29-2020 [facility] [Mass/Vol] [facility] (00301) Urea 23 mg/mg 03-29-2020 [facility] nitrogen/Creatinine [facility] [Mass ratio] [facility] ([id number]) User, Interfaces - 0 2:16 PM EDT EXAM: XR FLUORO MODIFIED BARIUM SWALLOW WITH SPEECH, 03/29/2020 13:29 PM 03-29-2020 [facility] MEDICAL COMPARISON: No [facility] CLINICAL INDICATIONS: dysphagia post CVA TECHNIQUE: Multiple barium consistencies (thin, nectar, honey, puree an d solid) were administered to evaluate the swallow. Lateral videoflu oroscopy was performed in conjunction with Speech Pathology. Fluoroscopy Time: 2.5 min FINDINGS: A nasoenteric tube is present within the nasopharynx and c ervical esophagus where it then exits the field of view. Oral Phase: Oral transit is discoordinated and delayed. Bolu s formation and bolus control are reduced. There is uncontrolled spillage of content s from the oral cavity into the pharynx. Dental fillings are present. Pharyngeal Phase: Visualization of the vocal cords and trachea is reduced du e to overlap with the patient's shoulders. Laryngeal penetration and silent as piration occur with the thin and nectar liquid consistencies. Transient lar yngeal penetration, without obvious aspiration, occurs with the hon ey liquid consistency. No definite laryngeal penetration or aspirati on occur with the puree or solid. Initiation of the pharyngeal swallowing mechanism is delayed . Tongue base retraction, epiglottic excursion, and pharyngeal peristalsis are reduced. There is intermittent, mild to moderate diffuse residue re maining after the swallow. Cervical Phase: Visualization of the cervical phase is suboptimal due to ove rlap with the shoulders. There is no gross evidence of obstruction or back flow. There are degenerative changes of the cervical spine. The prevertebral soft tissues appear unremarkable. IMPRESSION IMPRESSION: 1. 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 2. Laryngeal penetration and silent aspiration of thin and n ectar liquids. 3. Transient laryngeal penetration of honey liquids. 4. Functional impairments of the oral and pharyngeal phases as described above. 5. Nasoenteric tube present. Refer to the Speech and Language Pathologist's report for di et and therapy recommendations. Procedure performed by FLORY Barfield under the direct supervision of Dr. Chio Mcclellan. I personally viewed and interpreted these images and I have reviewed and approved this report. 2 :13 PM IMPRESSION: 1. 03-29-2020 [facility] Reduced visualization MEDICAL of the airway and CE NTER cervical esophagus due ([id number]) to overlap by the shoulders. 2. Laryngeal penetration and silent aspiration of thin and nectar liquids. 3. Transient laryngeal penetration of honey liquids. 4. Functional impairments of the oral and pharyngeal phases as described above. 5. Nasoenteric tube present. Refer to the Speech and Language Pathologist's report for diet and therapy recommendations. Procedure performed by FLORY Barfield under the direct supervision of Dr. Chio Mcclellan. I personally viewed and interpreted these images and I have reviewed and approved this report. : XR FLUORO 03-29-2020 [facility] MODIFIED BARIUM MEDI ERNST SWALLOW WITH [facility], [facility] 03/29/2020 13:29 PM ([id number]) COMPARISON: No prior barium swallow studies available for comparison. CLINICAL INDICATIONS: dysphagia post CVA TECHNIQUE: Multiple barium consistencies (thin, nectar, honey, puree and solid) were administered to evaluate the swallow. Lateral videofluoroscopy was performed in conjunction with Speech Pathology. Fluoroscopy Time: 2.5 min FINDINGS: A nasoenteric tube is present within the nasopharynx and cervical esophagus where it then exits the field of view. Oral Phase: Oral transit is discoordinated and delayed. Bolus formation and bolus control are reduced. There is uncontrolled spillage of contents from the oral cavity into the pharynx. Dental fillings are present. Pharyngeal Phase: Visualization of the vocal cords and trachea is reduced due to overlap with the patient's shoulders. Laryngeal penetration and silent aspiration occur with the thin and nectar liquid consistencies. Transient laryngeal penetration, without obvious aspiration, occurs with the honey liquid consistency. No definite laryngeal penetration or aspiration occur with the puree or solid. Initiation of the pharyngeal swallowing mechanism is delayed. Tongue base retraction, epiglottic excursion, and pharyngeal peristalsis are reduced. There is intermittent, mild to moderate diffuse residue remaining after the swallow. Cervical Phase: Visualization of the cervical phase is suboptimal due to overlap with the shoulders. There is no gross evidence of obstruction or backflow. There are degenerative changes of the cervical spine. The prevertebral soft tissues appear unremarkable. MERARI Castro 03-29-2020 Domenico POLANCO 03/29/2020 2:58 PM [facility] Acute Care Speech CE NTER Language Pathology ( 36810) Modified Barium Swallow Evaluation Note Swallow Therapy Frequency: 5 times a week Therapist Recommendations at Discharge: Speech Language Pathology Services recommended at discharge Diet Recommendations: Recommended Method of Nutrition: Combination of oral and nonoral, Short-term alternate nutrition Recommended Diet Grade: dysphagia- soft and bite sized (IDDSI 6) Recommended Liquid Consistency: liquid- moderately thick (IDDSI 3)/honey Recommended Medication Administration: In puree, Non-Oral(per RN discretion) Swallow Strategies: Bolus volume change(small bites and sips, multiple swallow if able to elicit) Type of Cues/Supervision: 1:1 supervision, verbal cues(reduce distractions) Assistance: nurse/aide, family Date of Procedure: 03/29/2020 General Patient Information Name: Blaine Crowley Gender: male Date of : 1955 Referring MD Goldy Gonzalez MD Diagnosis and Associated Codes: ICD-10-CM 1. Cerebrovascular accident (CVA), unspecified mechanism I63.9 2. Dysphagia as late effect of cerebrovascular accident (CVA) I69.391 Past Medical History: Diagnosis Date CVA (cerebral vascular accident) 2012 No past surgical history on file. Relevant History: Prior Level of Function Vocal Parameters: Impaired Motor Speech: (limited initiation to determine) Patient History Comments: Pt is a 64 y.o. male who presented with altered mental status, concern for seizures. MRI revealed new ischemic stroke in R basal ganglia. 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 Prior Study: unknown Respiratory Status: O2 Sat (%): 95 % (03/29 1128) O2 Device: room air (03/29 1245) Assessment: Consistencies Assessed: This study was conducted in the lateral view. Unable to proceed to AP view due to head/body posture. Patient was presented with the following barium consistencies: Varibar Thin Barium: teaspoon Varibar Kunkle Barium: teaspoon and single cup drink Varibar Thin Honey Barium: single cup drink Varibar Pudding Barium: 1/2 tsp and tsp Regular contrasted with Varibar Paste Barium: 1/2 inch and 1 inch pieces of destin cracker Oral Motor Exam: Oral Motor Exam Mandibular Movements/Strength: WFL Labial Movements/Strength: (no response) Lingual Movements/Strength: (no response) Oral Mucosa: Impaired(dry) Facial Symmetry: WFL Oral phase: Oral Phase Lip Closure: WFL, no labial escape Tongue Control During Bolus Hold: escape to lateral buccal cavity/floor of mouth Bolus Preparation/Masticatio n: slow prolonged chewing/mashing with complete recollection Bolus Transport/Lingual Motion: repetitive/disorganize d tongue motion, slowed tongue motion Oral Residue: residue collection on oral structures Location of Oral Residue: tongue, floor of mouth Initiation of Pharyngeal Swallow: bolus head in pyriforms Pharyngeal Phase: Pharyngeal Phase Soft Palate Elevation: no bolus between soft palate and posterior pharyngeal wall Laryngeal Elevation: partial movement of thyroid cartilage and/or partial approximation of arytenoids to epiglottic petiole Anterior Hyoid Excursion: partial anterior movement Epiglottic Movement: partial inversion Laryngeal Vestibule Closure-Height of Swallow: incomplete Pharyngeal Stripping Wave: present - diminished Pharyngeal Contraction in A/P View: (unable to perform due to head/neck posture) Pharyngoesophageal Segment Opening: partial distention/duration, partial obstruction of flow Tongue Base Retraction: narrow column of contrast between tongue base and posterior pharyngeal wall Pharyngeal Residue: residue collection on pharyngeal structures Location of Pharyngeal Residue: valleculae, aryepiglottic folds, pyriform sinuses Thin: Moderate Mildly thick: Severe, to greater degree in pyriform sinsuses Moderately thick: Mild to minimal Puree/regular solid: Mild Esophageal Phase: Esophageal Phase Esophageal Clearance In The Upright Position: (unable to visualize due to body habitus) Airway Events: Airway Events: Penetration / Aspiration Scale (PAS) Thin: 6 - Material enters the airway, passes below the vocal folds, and is ejected into the larynx or out of the airway, during swallow Liquid- mildly thick (IDDSI 2)/nectar: 8 - Material enters the airway, passes below the vocal folds, and no effort is made to eject, during swallow, after swallow Liquid- moderately thick (IDDSI 3)/honey: 2 - Material enters the airway, remains above the vocal folds, and is ejected from the airway, during swallow Dysphagia- pureed (IDDSI 4): 1 - Material does not enter the airway Regular Solid: 1 - Material does not enter the airway Strategy Trialed: Effectiveness: Unable to comply with postural maneuvers Multiple swallows Unable to consistently achieve Increased liquid and solid viscosity Appeared to improve sensory awareness and elicit greater reserve for pharyngeal clearance IMPRESSIONS: Moderate oropharyngeal dysphagia per Dysphagia Outcome Severity Scale (CALEB) score of 3 due suspected weakness with overlaid sensory deficit and impact of decreased attention/initiation. Function characterized by reduced lingual control, delayed swallow initiation, incomplete epiglottic inversion and decreased pharyngeal contraction. However, greater functional reserve elicited by increases in food/liquid viscosity which aids efficiency of bolus flow and clearance. Aspiration of thin and mildly thick liquids present, with decreased response/clearance to mildly thick liquid aspiration. Potential for further improvements as strength and alertness/arousal improve. RECOMMENDATIONS: Swallow Recommendations Recommended Method of Nutrition: Combination of oral and nonoral, Short-term alternate nutrition Recommended Diet Grade: dysphagia- soft and bite sized (IDDSI 6) Recommended Liquid Consistency: liquid- moderately thick (IDDSI 3)/honey Recommended Medication Administration: In puree, Non-Oral(per RN discretion) Swallow Strategies: Bolus volume change(small bites and sips, multiple swallow if able to elicit) Type of Cues/Supervision: 1:1 supervision, verbal cues(reduce distractions) Assistance: nurse/aide, family Recommended Rehab Activities: bolus manipulation exercises Criteria For Skilled Therapeutic Interventions Met: yes, treatment indicated Barriers to Treatment: Arousal/attention, initiation Risks and benefits have been discussed with patient: Yes(cognitive barrier to teaching) Frequency: 5 times a week Treatment will consist of: Swallow dysfunction treatment Goals: 1. Patient will demonstrate safe and efficient swallow of Soft and Bite Sized (IDDSI 6)/Dysphagia Advanced solids and Moderately thick (IDDSI 3)/Honey thick liquids without signs/sx of aspiration risk on 10/10 bolus trials given max assist over 2 sessions. 2. Patient will complete lingual strengthening and bolus control activities to improve efficiency of oral phase, given mod assist over 2 sessions. 3. Patient will complete effortful swallow ex 10 repetitions to improve pharyngeal contraction for bolus clearance and closure of laryngeal vestibule during the swallow for airway protection, given max assist As able with cognition over 2 sessions. Time In: 1310 Time Out:: 1325 PPE utilized: goggles, facemask and gloves Therapist: Hilda Cortez MA, CCC-RECYCLING [employer] SUPERVISOR License # [id number] Pager # [phone] Upon discontinuation of Acute Care Speech Therapy Services or patient discharge from the hospital this note represents the current Speech Therapy Discharge Summary EXAM: XR ABDOMEN 1 03-29-2020 [facility] VIEW, 03/28/2020 18:12 MEDICAL PM COMPARISON: No CE NTER prior abdominal (432 10) radiographs available for comparison. CLINICAL INDICATIONS: ng placement FINDINGS: Tubes: Interval removal of the NG/OG tube and placement of a Dobbhoff tube with the tip in the proximal stomach. No definite pneumoperitoneum. There is a non obstructive bowel gas pattern. Visualized osseous structures are unremarkable for the patient's age. IMPRESSION: Dobbhoff 0 [facility] tube tip in the [facility] proximal stomach. CE NTER Further advancement is (76222) recommended if postpyloric positioning is needed. User, Interfaces - 0 8:01 AM EDT EXAM: XR ABDOMEN 1 [facility], 03/28/2020 18:12 PM 03-29-2020 [facility] MEDICAL COMPARISON: No prior abdominal radiographs available for [facility] [place] ([id number]) CLINICAL INDICATIONS: ng placement FINDINGS: Tubes: Interval removal of the NG/OG tube and placement of a Dobbhoff tube with the tip in the proximal stomach. No definite pneumoperitoneum. There is a non obstructive b owel gas pattern. Visualized osseous structures are unremarkable for the patie nt's age. IMPRESSION IMPRESSION: Dobbhoff tube tip in the proximal stomach. Furth er advancement is recommended if postpyloric positioning is needed. 7 :58 AM INR Coag (Bld) 1.1 OT - {INR} 03-29-2020 [facility] [Relative time] [facility] ([id number]) Interpretation and Abnormal 03-29-2020 [facility] review of MEDICAL laboratory results [facility] ([id number]) PT Coag (PPP) 14.4 OT - s High 03-29-2020 [facility] [Time] [facility] ([id number]) Osmolality Calc 297 OT - 03-29-2020 [facility] [Osmolality] [facility] ([id number]) Phosphate 2.5 2.2 - mg/dL 03-29-2020 [facility] [Mass/Vol] 4.6 [facility] ([id number]) Basophils (Bld) <0.04 0 - 10*3/uL 03-29-2020 [facility] [#/Vol] 0.09 [facility] (03963) Basophils/100 WBC 0.3 % 03-29-2020 [facility] (Bld) [facility] ([id number]) DIFF STATUS Electronic 03-29-2020 [facility] Differential [facility] ([facility]) Eosinophils (Bld) 0.60 0 - K/uL High 03-29-2020 [facility] [#/Vol] 0.48 [facility] ([facility]) Eosinophils/100 WBC 5.5 % 03-29-2020 [facility] (Bld) [facility] ([facility]) Erythrocyte 13.5 10.9 - % 03-29-2020 [facility] distribution width 14.3 M ED[facility] (RBC) [Ratio] CENTER ([facility]) Hematocrit (Bld) 41.9 39.6 - % 03-29-2020 [facility] [Volume fraction] 48.8 [facility] ([facility]) Hemoglobin (Bld) 13.6 13.4 - g/dL 03-29-2020 [facility] [Mass/Vol] 16.8 [facility] ([facility]) Immature 0.12 <=0.08 K/uL High 03-29-2020 [facility] granulocytes (Bld) M EDICAL [#/Vol] [facility] ([facility]) Immature 1.1 % 03-29-2020 [facility] granulocytes/100 MED ICAL WBC (Bld) [facility] ([facility]) Interpretation and Abnormal 03-29-2020 [facility] review of MEDICAL laboratory results [facility] ([facility]) Lymphocytes (Bld) 1.43 0.83 - K/uL 03-29-2020 [facility] [#/Vol] 3.57 [facility] ([facility]) Lymphocytes/100 WBC 13.1 % 03-29-2020 [facility] (Bld) [facility] ([facility]) MCH (RBC) [Entitic 29.6 26.1 - pg 03-29-2020 [facility] mass] 33.3 [facility] ([facility]) MCHC (RBC) 32.5 31.9 - g/dL 03-29-2020 [facility] [Mass/Vol] 36.5 [facility] ([facility]) MCV (RBC) [Entitic 91.1 79 - fL 03-29-2020 [facility] vol] 94.5 [facility] ([facility]) Monocytes (Bld) 0.83 0.24 - K/uL 03-29-2020 [facility] [#/Vol] 0.93 [facility] ([facility]) Monocytes/100 WBC 7.6 % 03-29-2020 [facility] [place] (Bld) [facility] ([id number]) Neutrophils (Bld) 7.93 1.57 - K/uL High 03-29-2020 [facility] [place] [#/Vol] 6.19 [facility] (10708) Nucleated RBC/100 0.0 <=0.2 % 03-29-2020 [facility] [place] WBC (Bld) [Ratio] /100 [facility] (49035) Platelet mean 11.7 8.7 - fL 03-29-2020 [facility] volume (Bld) 12.3 [facility] [Entitic vol] [facility] (49368) Platelets (Bld) 189 146 - K/uL 03-29-2020 [facility] [#/Vol] 337 [facility] (68896) RBC (Bld) [#/Vol] 4.60 OTH - 10*6/uL 03-29-2020 [facility] [place] [facility] (14914) Segmented 72.4 % 03-29-2020 [facility] R neutrophils/100 WBC [facility] (Bld) [facility] (51053) WBC (Bld) [#/Vol] 10.94 3.73 - K/uL High 03-29-2020 [facility] [place] 10.1 [facility] (49716) phosphate, inorganic on 2020-03-28 Phosphorous 2.8 2.2-4.6 mg/dL Normal 03-28-2020 [facility] (00 000) Comment: Performed By: #### CKB, C7ED , HFP, ACTMJ, SALIJ, CA, MGO, TSH #### [facility] (Dale DIAZ) [address] [place] [address] 46182 Phosphorous 3.4 2.2-4.6 mg/dL Normal 03-28-2020 [facility] (00 000) Comment: Performed By: #### CKB, C7ED , HFP, ACTMJ, SALIJ, CA, MGO, TSH #### [facility] ([facility] DIAZ) [address] [place] [address] magnesium on 2019-0 03-28 Magnesium [Mass/Vol] 2.0 1.6-2.6 mg/dL Normal 0 [facility] nter (79395) Comment: Performed By: #### CKB, C7ED , HFP, ACTMJ, SALIJ, CA, MGO, TSH #### [facility] ([facility]) [address] [place] [address] 53576 Magnesium [Mass/Vol] 2.1 1.6-2.6 mg/dL Normal 0 [facility] nter (66544) Comment: Performed By: #### CKB, C7ED , HFP, ACTMJ, SALIJ, CA, MGO, TSH #### [facility] ([facility]) [address] [place] [address] 75564 chem 7 (lytes,bun,crea,gluc) on 2020-03-28 Anion gap [Moles/Vol] 15 7-17 mmol/L Normal 03-28-20 [facility] nter (31247) Comment: Performed By: #### CKB, C7ED , HFP, ACTMJ, SALIJ, CA, MGO, TSH #### [facility] ([facility]) [address] [place] [address] 25438 Chloride [Moles/Vol] 107 98-108 mmol/L Normal 0 [facility] nter (35285) Comment: Performed By: #### CKB, C7ED , HFP, ACTMJ, SALIJ, CA, MGO, TSH #### [facility] ([facility]) [address] [place] [address] 57790 CO2 [Moles/Vol] 23 22-30 mmol/L Normal 03-28-2020 [facility] nter (60295) Comment: Performed By: #### CKB, C7ED , HFP, ACTMJ, SALIJ, CA, MGO, TSH #### [facility] ([facility]) [address] [place] [address] 17693 Creatinine [Mass/Vol] 0.92 0.70-1.30 mg/dL Normal 03-28-20 20 [facility] (08010) Comment: Performed By: #### CKB, C7ED , HFP, ACTMJ, SALIJ, CA, MGO, TSH #### [facility] ([facility]) [address] [place] [address] 14713 EST GFR, 60 >=60 mL/min/1.73sqM Normal 03-28-20 [facility] (23564) Comment: Performed By: #### CKB, C7ED , HFP, ACTMJ, SALIJ, CA, MGO, TSH #### [facility] ([facility]) [address] [place] [address] 15422 EST GFR,Non 60 >=60 mL/min/1.73sqM Normal 03-28 [facility] (48293) Comment: Performed By: #### CKB, C7ED , HFP, ACTMJ, SALIJ, CA, MGO, TSH #### [facility] ([facility]) [address] [place] [address] 43540 Glucose [Mass/Vol] 96 70-99 mg/dL Normal 03-28-2020 [facility] nter (46334) Comment: Performed By: #### CKB, C7ED , HFP, ACTMJ, SALIJ, CA, MGO, TSH #### [facility] ([facility]) [address] [place] [address] 10990 Osmolality [Osmolality] 297 278-305 mOsm/kg Normal 2019 [facility] (79944) Comment: Performed By: #### CKB, C7ED , HFP, ACTMJ, SALIJ, CA, MGO, TSH #### [facility] ( JOE) [address] [place] [address] 59722 Potassium [Moles/Vol] 3.7 3.5-5.0 mmol/L Normal 03-28-20 [facility] (43905) Comment: Performed By: #### CKB, C7ED , HFP, ACTMJ, SALIJ, CA, MGO, TSH #### [facility] ([facility]) [address] [place] [address] 58999 Sodium [Moles/Vol] 141 133-143 mmol/L Normal 03-28-2020 [facility] nter (60182) Comment: Performed By: #### CKB, C7ED , HFP, ACTMJ, SALIJ, CA, MGO, TSH #### [facility] ([facility]) [address] [place] [address] 81253 Urea nitrogen [Mass/Vol] 23 7-22 mg/dL High 03-28 [facility] nter (86007) Comment: Performed By: #### CKB, C7ED , HFP, ACTMJ, SALIJ, CA, MGO, TSH #### [facility] ([facility]) [address] [place] [address] 59798 Urea nitrogen/Creatinine [Mass 25 mg/mg Normal 03-28-2020 [facility] ratio] [facility] (93520) Comment: Performed By: #### CKB, C7ED , HFP, ACTMJ, SALIJ, CA, MGO, TSH #### [facility] ([facility]) [address] [place] [address] 65862 Anion gap [Moles/Vol] 16 7-17 mmol/L Normal 03-28-20 20 [facility] nter (12703) Comment: Performed By: #### CKB, C7ED , HFP, ACTMJ, SALIJ, CA, MGO, TSH #### [facility] ([facility]) [address] [place] [address] 19294 Chloride [Moles/Vol] 108 98-108 mmol/L Normal 0 [facility] nter (29249) Comment: Performed By: #### CKB, C7ED , HFP, ACTMJ, SALIJ, CA, MGO, TSH #### [facility] ([facility]) [address] [place] [address] 00117 CO2 [Moles/Vol] 23 22-30 mmol/L Normal 03-28-2020 [facility] nter (56650) Comment: Performed By: #### CKB, C7ED , HFP, ACTMJ, SALIJ, CA, MGO, TSH #### [facility] ([facility]) [address] [place] [address] 49167 Creatinine [Mass/Vol] 0.99 0.70-1.30 mg/dL Normal 03-28-20 [facility] (57014) Comment: Performed By: #### CKB, C7ED , HFP, ACTMJ, SALIJ, CA, MGO, TSH #### [facility] ([facility]) [address] [place] [address] 04904 EST GFR, 60 >=60 mL/min/1.73sqM Normal 03-28-20 [facility] (75732) Comment: Performed By: #### CKB, C7ED , HFP, ACTMJ, SALIJ, CA, MGO, TSH #### [facility] ([facility]) [address] [place] [address] 15817 EST GFR,Non 60 >=60 mL/min/1.73sqM Normal 03-28 [facility] (05160) Comment: Performed By: #### CKB, C7ED , HFP, ACTMJ, SALIJ, CA, MGO, TSH #### [facility] ([facility]) [address] [place] [address] 77114 Glucose [Mass/Vol] 91 70-99 mg/dL Normal 03-28-2020 [facility] nter (60846) Comment: Performed By: #### CKB, C7ED , HFP, ACTMJ, SALIJ, CA, MGO, TSH #### [facility] ([facility]) [address] [place] [address] 14029 Osmolality [Osmolality] 302 278-305 mOsm/kg Normal 2019 [facility] (30833) Comment: Performed By: #### CKB, C7ED , HFP, ACTMJ, SALIJ, CA, MGO, TSH #### [facility] ([facility]) [address] [place] [address] 87456 Potassium [Moles/Vol] 3.6 3.5-5.0 mmol/L Normal 03-28-20 [facility] (32545) Comment: Performed By: #### CKB, C7ED , HFP, ACTMJ, SALIJ, CA, MGO, TSH #### [facility] ([facility]) [address] [place] [address] 54737 Sodium [Moles/Vol] 143 133-143 mmol/L Normal 03-28-2020 [facility] nter (43738) Comment: Performed By: #### CKB, C7ED , HFP, ACTMJ, SALIJ, CA, MGO, TSH #### [facility] ([facility]) [address] [place] [address] 75085 Urea nitrogen [Mass/Vol] 26 7-22 mg/dL High 03-28 [facility] nter (84828) Comment: Performed By: #### CKB, C7ED , HFP, ACTMJ, SALIJ, CA, MGO, TSH #### [facility] ([facility]) [address] [place] [address] 54748 Urea nitrogen/Creatinine [Mass 26 mg/mg Normal 03-28-2020 [facility] ratio] [facility] (02725) Comment: Performed By: #### CKB, C7ED , HFP, ACTMJ, SALIJ, CA, MGO, TSH #### [facility] ([facility]) [address] [place] [address] 88614 cbc and electronic diff on 2020-03-28 Basophils (Bld) [#/Vol] 0.04 0.00-0.09 K/uL Normal 2019 [facility] (21928) Comment: Performed By: #### CKB, C7ED , HFP, ACTMJ, SALIJ, CA, MGO, TSH #### [facility] (D E[facility]) [address] [place] [address] 13153 Basophils/100 WBC (Bld) 0.3 % Normal 2019 [facility] nter (00739) Comment: Performed By: #### CKB, C7ED , HFP, ACTMJ, SALIJ, CA, MGO, TSH #### [facility] ([facility]) [address] [place] [address] 06573 DIFF STATUS Electronic Differential Normal 03-09 [facility] (77062) Comment: Performed By: #### CKB, C7ED , HFP, ACTMJ, SALIJ, CA, MGO, TSH #### [facility] ([facility]) [address] [place] [address] 21315 Eosinophils (Bld) 0.48 0.00-0.48 K/uL Normal 03-28-2020 [facility] [#/Vol] [facility] (17103) Comment: Performed By: #### CKB, C7ED , HFP, ACTMJ, SALIJ, CA, MGO, TSH #### [facility] ([facility]) [address] [place] [address] 73655 Eosinophils/100 WBC (Bld) 4.0 % Normal 03-09 [facility] nter (00454) Comment: Performed By: #### CKB, C7ED , HFP, ACTMJ, SALIJ, CA, MGO, TSH #### [facility] ([facility]) [address] [place] [address] 32609 Hematocrit (Bld) [Volume 47.3 39.6-48.8 % Normal 03-28 [facility] fraction] [facility] (43026) Comment: Performed By: #### CKB, C7ED , HFP, ACTMJ, SALIJ, CA, MGO, TSH #### [facility] ([facility]) [address] [place] [address] 86632 Hemoglobin (Bld) 15.5 13.4-16.8 g/dL Normal 03-28-2020 [facility] [Mass/Vol] [facility] (93327) Comment: Performed By: #### CKB, C7ED , HFP, ACTMJ, SALIJ, CA, MGO, TSH #### [facility] (D [facility]) [address] [place] [address] 37166 Immature Grans % 1.5 % Normal 03-28-2020 [facility] (00 000) Comment: Performed By: #### CKB, C7ED , HFP, ACTMJ, SALIJ, CA, MGO, TSH #### [facility] ([facility]) [address] [place] [address] 36882 Immature Grans Absolute 0.18 <=0.08 K/uL High 2019 [facility] nter (96509) Comment: Performed By: #### CKB, C7ED , HFP, ACTMJ, SALIJ, CA, MGO, TSH #### [facility] ([facility]) [address] [place] [address] 60463 Lymphocytes (Bld) 1.63 0.83-3.57 K/uL Normal 03-28-2020 [facility] [#/Vol] [facility] (28888) Comment: Performed By: #### CKB, C7ED , HFP, ACTMJ, SALIJ, CA, MGO, TSH #### [facility] ([facility]) [address] [place] [address] 51181 Lymphocytes/100 WBC (Bld) 13.7 % Normal 03-09 [facility] nter (10721) Comment: Performed By: #### CKB, C7ED , HFP, ACTMJ, SALIJ, CA, MGO, TSH #### [facility] ([facility]) [address] [place] [address] 20605 MCV (RBC) [Entitic vol] 89.9 79.0-94.5 fL Normal 2019 [facility] (23290) Comment: Performed By: #### CKB, C7ED , HFP, ACTMJ, SALIJ, CA, MGO, TSH #### [facility] ([facility]) [address] [place] [address] 85014 Mean Cell Hgb 29.5 26.1-33.3 pg Normal 03-28-2020 [facility] nter (02371) Comment: Performed By: #### CKB, C7ED , HFP, ACTMJ, SALIJ, CA, MGO, TSH #### [facility] ([facility]) [address] [place] [address] 47702 Mean Cell Hgb Conc 32.8 31.9-36.5 g/dL Normal 03-28-2020 [facility] nter (49037) Comment: Performed By: #### CKB, C7ED , HFP, ACTMJ, SALIJ, CA, MGO, TSH #### [facility] ([facility]) [address] [place] [address] 24117 Monocytes (Bld) [#/Vol] 1.24 0.24-0.93 K/uL High 2019 [facility] (20162) Comment: Performed By: #### CKB, C7ED , HFP, ACTMJ, SALIJ, CA, MGO, TSH #### [facility] ([facility]) [address] [place] [address] 00235 Monocytes/100 WBC (Bld) 10.4 % Normal 2019 [facility] nter (44408) Comment: Performed By: #### CKB, C7ED , HFP, ACTMJ, SALIJ, CA, MGO, TSH #### [facility] ([facility]) [address] [place] [address] 40255 Nucleated RBC (Bld) 0.0 <=0.2 /100 WBC Normal 03-28-2020 [facility] [#/Vol] [facility] (12189) Comment: Performed By: #### CKB, C7ED , HFP, ACTMJ, SALIJ, CA, MGO, TSH #### [facility] ([facility]) [address] [place] [address] 86426 Platelet mean volume 10.7 8.7-12.3 fL Normal 0 [facility] (Bld) [Entitic vol] [facility] (99435) Comment: Performed By: #### CKB, C7ED , HFP, ACTMJ, SALIJ, CA, MGO, TSH #### [facility] ([facility]) [address] [place] [address] 51595 Platelets (Bld) [#/Vol] 197 146-337 K/uL Normal 2019 [facility] (67479) Comment: Performed By: #### CKB, C7ED , HFP, ACTMJ, SALIJ, CA, MGO, TSH #### [facility] ([facility]) [address] [place] [address] 70920 RBC (Bld) [#/Vol] 5.26 4.38-5.83 M/uL Normal 03-28-2020 O [facility] nter (50648) Comment: Performed By: #### CKB, C7ED , HFP, ACTMJ, SALIJ, CA, MGO, TSH #### [facility] ([facility]) [address] [place] [address] 70950 RBC (Bld) [#/Vol] 13.5 10.9-14.3 % Normal 03-28-2020 O [facility] nter (92825) Comment: Performed By: #### CKB, C7ED , HFP, ACTMJ, SALIJ, CA, MGO, TSH #### [facility] ([facility]) [address] [place] [address] 58124 Segs + Bands Auto 70.1 % Normal 03-28-2020 O [facility] (00 000) Comment: Performed By: #### CKB, C7ED , HFP, ACTMJ, SALIJ, CA, MGO, TSH #### [facility] ([facility]) [address] [place] [address] 97532 Segs + Bands,Absolute Auto 8.37 1.57-6.19 K/uL High [facility] (70258) Comment: Performed By: #### CKB, C7ED , HFP, ACTMJ, SALIJ, CA, MGO, TSH #### [facility] ([facility]IA[facility]) [address] [place] [address] WBC (Bld) [#/Vol] 11.93 3.73-10.10 K/uL High 03-28-2020 [facility] (08282) Comment: Performed By: #### CKB, C7ED , HFP, ACTMJ, SALIJ, CA, MGO, TSH #### [facility] ([facility]) [address] [place] [address] No panel information on 2020-03-28 Anion gap 15 7 - 17 mmol/L 03-28-2020 [facility] R [Moles/Vol] [facility] (38017) Chloride [Moles/Vol] 107 98 - 108 mmol/L 0 [facility] (76393) CO2 [Moles/Vol] 23 22 - 30 mmol/L 03-28-2020 [facility] (64893) Creatinine 0.92 0.7 - mg/dL 03-28-2020 [facility] ER [Mass/Vol] 1.3 [facility] (90939) GFR/1.73 sq >=60 >=60 mL/min/{1.7 03-28-2020 [facility]/min/1 3_m2} [facility] ICAL (S/P/Bld) [Vol .73sqM CENTE R rate/Area] (82318) Glucose [Mass/Vol] 96 70 - 99 mg/dL 03-28-2020 [facility] (43295) Interpretation and Normal 03-28-2020 [facility] review of laboratory MEDICAL results [facility] (82953) Interpretation and Abnormal 03-28-2020 [facility] review of laboratory MEDICAL results [facility] (08363) Magnesium [Mass/Vol] 2.0 1.6 - mg/dL 0 [facility] 2.6 [facility] ([facility]) Osmolality Calc 297 OTH - 03-28-2020 [facility] [Osmolality] [facility] ([facility]) Phosphate [Mass/Vol] 2.8 2.2 - mg/dL 0 [facility] 4.6 [facility] ([facility]) Potassium 3.7 3.5 - 5 mmol/L 03-28-2020 [facility] [Moles/Vol] [facility] ([facility]) Sodium [Moles/Vol] 141 133 - mmol/L 03-28-2020 [facility] 143 [facility] ([facility]) Urea nitrogen 23 7 - 22 mg/dL High 03-28-2020 [facility] [Mass/Vol] [facility] ([facility]) Urea 25 mg/mg 03-28-2020 [facility] nitrogen/Creatinine [facility] [Mass ratio] [facility] ([facility]) Anion gap 16 7 - 17 mmol/L 03-28-2020 [facility] [Moles/Vol] [facility] ([facility]) Chloride [Moles/Vol] 108 98 - 108 mmol/L 0 [facility] ([facility]) CO2 [Moles/Vol] 23 22 - 30 mmol/L 03-28-2020 [facility] ([facility]) Creatinine 0.99 0.7 - mg/dL 03-28-2020 [facility] [Mass/Vol] 1.3 [facility] ([facility]) GFR/1.73 sq >=60 >=60 mL/min/{1.7 03-28-2020 [facility] M.predicted MDRD mL/min/1 3_m2} MED ICAL (S/P/Bld) [Vol .73sqM CENTE R rate/Area] ([facility]) Glucose [Mass/Vol] 91 70 - 99 mg/dL 03-28-2020 [facility] ([facility]) Interpretation and Abnormal 03-28-2020 [facility] review of laboratory MEDICAL results [place] ([facility]) Interpretation and Normal 03-28-2020 [facility] review of laboratory MEDICAL results [place] ([facility]) Magnesium [Mass/Vol] 2.1 1.6 - mg/dL 0 [facility] 2.6 [facility] ([facility]) Osmolality Calc 302 OTH - 03-28-2020 [facility] [Osmolality] OTH [facility] ([facility]) Phosphate [Mass/Vol] 3.4 2.2 - mg/dL 0 [facility] 4.6 [facility] ([facility]) Potassium 3.6 3.5 - 5 mmol/L 03-28-2020 [facility] [Moles/Vol] [facility] ([facility]) Sodium [Moles/Vol] 143 133 - mmol/L 03-28-2020 [facility] 143 [facility] ([facility]) Urea nitrogen 26 7 - 22 mg/dL High 03-28-2020 [facility] [Mass/Vol] [facility] ([facility]) Urea 26 mg/mg 03-28-2020 [facility] nitrogen/Creatinine MEDICAL [Mass ratio] [facility] ([facility]) Basophils (Bld) <0.04 0 - 0.09 10*3/uL 03-28-2020 [facility] [#/Vol] [facility] ([facility]) Basophils/100 WBC 0.3 % 03-28-2020 [facility] [place] (Bld) [facility] ([facility]) DIFF STATUS Electronic 03-28-2020 [facility] Differential [facility] ([facility]) Eosinophils (Bld) 0.48 0 - 0.48 K/uL 03-28-2020 [facility] [place] [#/Vol] [facility] ([facility]) Eosinophils/100 WBC 4.0 % 03-28-2020 [facility] (Bld) [facility] ([facility]) Erythrocyte 13.5 10.9 - % 03-28-2020 [facility] distribution width 14.3 M EDICAL (RBC) [Ratio] [facility] ([facility]) Hematocrit (Bld) 47.3 39.6 - % 03-28-2020 [facility] [Volume fraction] 48.8 ME DICAL [facility] ([facility]) Hemoglobin (Bld) 15.5 13.4 - g/dL 03-28-2020 [facility] [Mass/Vol] 16.8 [facility] ([facility]) Immature 0.18 <=0.08 K/uL High 03-28-2020 [facility] granulocytes (Bld) M EDICAL [#/Vol] [facility] ([facility]) Immature 1.5 % 03-28-2020 [facility] granulocytes/100 WBC MEDICAL (Bld) [facility] ([facility]) Interpretation and Abnormal 03-28-2020 [facility] review of laboratory MEDICAL results [place] ([facility]) Lymphocytes (Bld) 1.63 0.83 - K/uL 03-28-2020 [facility] [place] [#/Vol] 3.57 [facility] ([facility]) Lymphocytes/100 WBC 13.7 % 03-28-2020 [facility] (Bld) [facility] ([facility]) MCH (RBC) [Entitic 29.5 26.1 - pg 03-28-2020 [facility] mass] 33.3 [facility] ([facility]) MCHC (RBC) 32.8 31.9 - g/dL 03-28-2020 [facility] [Mass/Vol] 36.5 [facility] ([facility]) MCV (RBC) [Entitic 89.9 79 - fL 03-28-2020 [facility] vol] 94.5 [facility] ([facility]) Monocytes (Bld) 1.24 0.24 - K/uL High 03-28-2020 [facility] [#/Vol] 0.93 [facility] ([facility]) Monocytes/100 WBC 10.4 % 03-28-2020 [facility] [place] (Bld) [facility] ([facility]) Neutrophils (Bld) 8.37 1.57 - K/uL High 03-28-2020 [facility] [place] [#/Vol] 6.19 [facility] ([facility]) Nucleated RBC/100 0.0 <=0.2 % 03-28-2020 [facility] WBC (Bld) [Ratio] /100 WBC ME DICAL [facility] ([facility]) Platelet mean volume 10.7 8.7 - fL 0 [facility] (Bld) [Entitic vol] 12.3 [facility] ([facility]) Platelets (Bld) 197 146 - K/uL 03-28-2020 [facility] [#/Vol] 337 [facility] ([facility]) RBC (Bld) [#/Vol] 5.26 OTH - 10*6/uL 03-28-[address] [facility] ([id number]) Segmented 70.1 % 03-28-2020 [facility] ([id number]) WBC (Bld) [#/Vol] 11.93 3.73 - K/uL High 03-28-2020 [facility] 10.1 [facility] ([id number]) phosphate, inorganic on 2020-03-27 Phosphorous 3.4 2.2-4.6 mg/dL Normal 03-27-2020 [facility] (00 000) Comment: Performed By: #### CKB, C7ED , HFP, ACTMJ, SALIJ, CA, MGO, TSH #### [facility] ([facility]) [address] [place] [address] 18051 magnesium on 03-27 Magnesium [Mass/Vol] 2.4 1.6-2.6 mg/dL Normal 0 [facility] (12623) Comment: Performed By: #### CKB, C7ED , HFP, ACTMJ, SALIJ, CA, MGO, TSH #### [facility] ([facility]) [address] [place] [address]36 chem 7 (lytes,bun,crea,gluc) on 2020-03-27 Anion gap [Moles/Vol] 13 7-17 mmol/L Normal 03-27-20 20 [facility] nter ([id number]) Comment: Performed By: #### CKB, C7ED , HFP, ACTMJ, SALIJ, CA, MGO, TSH #### [facility] ([facility]) [address] [place] [address] 14901 Chloride [Moles/Vol] 108 98-108 mmol/L Normal 0 [facility] nter ([id number]) Comment: Performed By: #### CKB, C7ED , HFP, ACTMJ, SALIJ, CA, MGO, TSH #### [facility] ([facility]) [address] [place] [address] 09755 CO2 [Moles/Vol] 23 22-30 mmol/L Normal 03-27-2020 [facility] nter ([id number]) Comment: Performed By: #### CKB, C7ED , HFP, ACTMJ, SALIJ, CA, MGO, TSH #### [facility] ([facility]SE) [address] [place] [address]238 Creatinine [Mass/Vol] 0.95 0.70-1.30 mg/dL Normal 03-27-20 [facility] ([id number]) Comment: Performed By: #### CKB, C7ED , HFP, ACTMJ, SALIJ, CA, MGO, TSH #### [facility] (Dale JOSE) [address] [place] [address] 43426 EST GFR, 60 >=60 mL/min/1.73sqM Normal 03-27-20 [facility] (10797) Comment: Performed By: #### CKB, C7ED , HFP, ACTMJ, SALIJ, CA, MGO, TSH #### [facility] (Dale JOSE) [address] [place] [address] 32525 EST GFR,Non 60 >=60 mL/min/1.73sqM Normal 03-27 [facility] (31153) Comment: Performed By: #### CKB, C7ED , HFP, ACTMJ, SALIJ, CA, MGO, TSH #### U [facility] ([facility] JOSE) [address] [place] [address] 60265 Glucose [Mass/Vol] 86 70-99 mg/dL Normal 03-27-2020 [facility] nter (44793) Comment: Performed By: #### CKB, C7ED , HFP, ACTMJ, SALIJ, CA, MGO, TSH #### U [facility] ([facility]) [address] [place] [address] 45199 Osmolality [Osmolality] 297 278-305 mOsm/kg Normal 2019 [facility] (29239) Comment: Performed By: #### CKB, C7ED , HFP, ACTMJ, SALIJ, CA, MGO, TSH #### [facility] ([facility]) [address] [place] [address] 52483 Potassium [Moles/Vol] 3.5 3.5-5.0 mmol/L Normal 03-27-20 20 [facility] (15719) Comment: Performed By: #### CKB, C7ED , HFP, ACTMJ, SALIJ, CA, MGO, TSH #### U [facility] ([place]) [address] [place] [address] 85476 Sodium [Moles/Vol] 140 133-143 mmol/L Normal 03-27-2020 [facility] nter (44989) Comment: Performed By: #### CKB, C7ED , HFP, ACTMJ, SALIJ, CA, MGO, TSH #### [facility] ([facility]) [address] [place] [address] 32972 Urea nitrogen [Mass/Vol] 30 7-22 mg/dL High 03-27 [facility] nter (48189) Comment: Performed By: #### CKB, C7ED , HFP, ACTMJ, SALIJ, CA, MGO, TSH #### [facility] ([facility]) [address] [place] [address] 00086 Urea nitrogen/Creatinine [Mass 32 mg/mg Normal 03-27-2020 [facility] ratio] [facility] (37184) Comment: Performed By: #### CKB, C7ED , HFP, ACTMJ, SALIJ, CA, MGO, TSH #### [facility] ([facility]) [address] [place] [address] 84492 cbc and electronic diff on 2020-03-27 Basophils (Bld) [#/Vol] 0.04 0.00-0.09 K/uL Normal 2019 [facility] (51499) Comment: Performed By: #### CKB, C7ED , HFP, ACTMJ, SALIJ, CA, MGO, TSH #### [facility] ([facility]) [address] [place] [address] 14207 Basophils/100 WBC (Bld) 0.3 % Normal 2019 [facility] nter (37344) Comment: Performed By: #### CKB, C7ED , HFP, ACTMJ, SALIJ, CA, MGO, TSH #### [facility] ([facility]) [address] [place] [address] 24090 DIFF STATUS Electronic Differential Normal 03-09 [facility] (96194) Comment: Performed By: #### CKB, C7ED , HFP, ACTMJ, SALIJ, CA, MGO, TSH #### U [facility] ([facility]) [address] [place] [address] 42342 Eosinophils (Bld) 0.22 0.00-0.48 K/uL Normal 03-27-2020 [facility] [#/Vol] [facility] (70016) Comment: Performed By: #### CKB, C7ED , HFP, ACTMJ, SALIJ, CA, MGO, TSH #### [facility] ([facility]) [address] [place] [address] 19167 Eosinophils/100 WBC (Bld) 2.3 % Normal 03-09 [facility] nter (58902) Comment: Performed By: #### CKB, C7ED , HFP, ACTMJ, SALIJ, CA, MGO, TSH #### [facility] ([facility]) [address] [place] [address] 67198 Hematocrit (Bld) [Volume 44.4 39.6-48.8 % Normal 03-27 [facility] fraction] [facility] (03778) Comment: Performed By: #### CKB, C7ED , HFP, ACTMJ, SALIJ, CA, MGO, TSH #### [facility] ([facility]) [address] [place] [address] 53136 Hemoglobin (Bld) 14.4 13.4-16.8 g/dL Normal 03-27-2020 [facility] [Mass/Vol] [facility] (23931) Comment: Performed By: #### CKB, C7ED , HFP, ACTMJ, SALIJ, CA, MGO, TSH #### [facility] ( [place]) [address] [place] [address] 32311 Immature Grans % 1.7 % Normal 03-27-2020 [facility] (00 000) Comment: Performed By: #### CKB, C7ED , HFP, ACTMJ, SALIJ, CA, MGO, TSH #### [facility] ([facility]) [address] [place] [address] 61614 Immature Grans Absolute 0.16 <=0.08 K/uL High 2019 [facility] nter (14283) Comment: Performed By: #### CKB, C7ED , HFP, ACTMJ, SALIJ, CA, MGO, TSH #### U [facility] ([facility]) [address] [place] [address] 73513 Lymphocytes (Bld) 1.05 0.83-3.57 K/uL Normal 03-27-2020 [facility] [#/Vol] [facility] (37249) Comment: Performed By: #### CKB, C7ED , HFP, ACTMJ, SALIJ, CA, MGO, TSH #### U [facility] ([facility]) [address] [place] [address] 57644 Lymphocytes/100 WBC (Bld) 11.0 % Normal 03-09 [facility] nter (83250) Comment: Performed By: #### CKB, C7ED , HFP, ACTMJ, SALIJ, CA, MGO, TSH #### [facility] ([facility]) [address] [place] [address] 15809 MCV (RBC) [Entitic vol] 90.2 79.0-94.5 fL Normal 2019 [facility] (79905) Comment: Performed By: #### CKB, C7ED , HFP, ACTMJ, SALIJ, CA, MGO, TSH #### [facility] ([facility]) [address] [place] [address] 26519 Mean Cell Hgb 29.3 26.1-33.3 pg Normal 03-27-2020 [facility] nter (09667) Comment: Performed By: #### CKB, C7ED , HFP, ACTMJ, SALIJ, CA, MGO, TSH #### [facility] ([facility]) [address] [place] [address] 97671 Mean Cell Hgb Conc 32.4 31.9-36.5 g/dL Normal 03-27-2020 [facility] nter (19320) Comment: Performed By: #### CKB, C7ED , HFP, ACTMJ, SALIJ, CA, MGO, TSH #### [facility] ([facility]) [address] [place] [address] 12661 Monocytes (Bld) [#/Vol] 0.91 0.24-0.93 K/uL Normal 2019 [facility] (55176) Comment: Performed By: #### CKB, C7ED , HFP, ACTMJ, SALIJ, CA, MGO, TSH #### [facility] ([facility]) [address] [place] [address] 48579 Monocytes/100 WBC (Bld) 9.5 % Normal 2019 [facility] nter (79339) Comment: Performed By: #### CKB, C7ED , HFP, ACTMJ, SALIJ, CA, MGO, TSH #### [facility] ([facility]) [address] [place] [address] 19589 Nucleated RBC (Bld) 0.0 <=0.2 /100 WBC Normal 03-27-2020 [facility] [#/Vol] [facility] (53465) Comment: Performed By: #### CKB, C7ED , HFP, ACTMJ, SALIJ, CA, MGO, TSH #### U [facility] ([facility]) [address] [place] [address] 60809 Platelet mean volume 10.8 8.7-12.3 fL Normal 0 [facility] (Bld) [Entitic vol] [facility] (12898) Comment: Performed By: #### CKB, C7ED , HFP, ACTMJ, SALIJ, CA, MGO, TSH #### [facility] ([facility]) [address] [place] [address] 45420 Platelets (Bld) [#/Vol] 205 146-337 K/uL Normal 2019 [facility] (99655) Comment: Performed By: #### CKB, C7ED , HFP, ACTMJ, SALIJ, CA, MGO, TSH #### [facility] ([facility]) [address] [place] [address] 64209 RBC (Bld) [#/Vol] 4.92 4.38-5.83 M/uL Normal 03-27-2020 O [facility] nter (17797) Comment: Performed By: #### CKB, C7ED , HFP, ACTMJ, SALIJ, CA, MGO, TSH #### U [facility] ([facility]) [address] [place] [address] 69972 RBC (Bld) [#/Vol] 13.2 10.9-14.3 % Normal 03-27-2020 O [facility] nter (94146) Comment: Performed By: #### CKB, C7ED , HFP, ACTMJ, SALIJ, CA, MGO, TSH #### [facility] ([facility]) [address] [place] [address] 95471 Segs + Bands Auto 75.2 % Normal 03-27-2020 O [facility] (00 000) Comment: Performed By: #### CKB, C7ED , HFP, ACTMJ, SALIJ, CA, MGO, TSH #### U [facility] ([facility]IA[facility]) [address] [place] [address] Segs + Bands,Absolute Auto 7.20 1.57-6.19 K/uL High [facility] (71298) Comment: Performed By: #### CKB, C7ED , HFP, ACTMJ, SALIJ, CA, MGO, TSH #### [facility] ( JOE) [address] [place] [address] WBC (Bld) [#/Vol] 9.57 3.73-10.10 K/uL Normal 03-27-2020 [facility] (99124) Comment: Performed By: #### CKB, C7ED , HFP, ACTMJ, SALIJ, CA, MGO, TSH #### [facility] ([facility]) [address] [place] [address] 01823 No panel information on 2020-03-27 Bacteria identified NO GROWTH DAY 5 OF 0 03-27-2020 [facility] Cx Nom (Unsp spec) 5 EDICAL [place] (91673) Anion gap [Moles/Vol] 13 7 - 17 mmol/L 03-27-20 20 [facility] (26626) Chloride [Moles/Vol] 108 98 - 108 mmol/L 0 [facility] (85135) CO2 [Moles/Vol] 23 22 - 30 mmol/L 03-27-2020 [facility] (94639) Creatinine [Mass/Vol] 0.95 0.7 - 1.3 mg/dL 03-27-20 [facility] (77396) GFR/1.73 sq >=60 >=60 mL/min/{ 03-27-2020 [facility] MDRD mL/min/1. 1.73_m2} MED ICAL (S/P/Bld) [Vol 73sqM CENTE R rate/Area] (75545) Glucose [Mass/Vol] 86 70 - 99 mg/dL 03-27-2020 [facility] (53275) Interpretation and Abnormal 03-27-2020 [facility] review of laboratory MEDICAL results CENTER (16111) Interpretation and Normal 03-27-2020 [facility] review of laboratory MEDICAL results [place] ([facility]) Magnesium [Mass/Vol] 2.4 1.6 - 2.6 mg/dL 0 [facility] ([facility]) Osmolality Calc 297 OTH - OTH 03-27-2020 [facility] [Osmolality] [facility] ([facility]) Phosphate [Mass/Vol] 3.4 2.2 - 4.6 mg/dL 0 [facility] ([facility]) Potassium [Moles/Vol] 3.5 3.5 - 5 mmol/L 03-27-20 20 [facility] ([facility]) Sodium [Moles/Vol] 140 133 - 143 mmol/L 03-27-2020 [facility] ([facility]) Urea nitrogen 30 7 - 22 mg/dL High 03-27-2020 [facility] [Mass/Vol] [facility] ([facility]) Urea 32 mg/mg 03-27-2020 [facility] nitrogen/Creatinine MEDICAL [Mass ratio] [place] ([facility]) Basophils (Bld) <0.04 0 - 0.09 10*3/uL 03-27-2020 [facility] [#/Vol] [facility] ([facility]) Basophils/100 WBC 0.3 % 03-27-2020 [facility] (Bld) [facility] ([facility]) DIFF STATUS Electronic 03-27-2020 [facility] Differential [facility] ([facility]) Eosinophils (Bld) 0.22 0 - 0.48 K/uL 03-27-2020 [facility] [#/Vol] [facility] ([facility]) Eosinophils/100 WBC 2.3 % 03-27-2020 [facility] (Bld) [facility] (21693) Erythrocyte 13.2 10.9 - % 03-27-2020 [facility] distribution width 14.3 M EDICAL (RBC) [Ratio] [place] ([facility]) Hematocrit (Bld) 44.4 39.6 - % 03-27-2020 [facility] [Volume fraction] 48.8 ME DICAL [place] ([facility]) Hemoglobin (Bld) 14.4 13.4 - g/dL 03-27-2020 [facility] [Mass/Vol] 16.8 [facility] ([facility]) Immature granulocytes 0.16 <=0.08 K/uL High 03-27-20 20 [facility] (Bld) [#/Vol] [facility] ([facility]) Immature 1.7 % 03-27-2020 [facility] granulocytes/100 WBC [facility] ([facility]) [facility] ([facility]) Interpretation and Abnormal 03-27-2020 [facility] review of laboratory MEDICAL results [place] ([facility]) Lymphocytes (Bld) 1.05 0.83 - K/uL 03-27-2020 [facility] [#/Vol] 3.57 [facility] ([facility]) Lymphocytes/100 WBC 11.0 % 03-27-2020 [facility] (Bld) [facility] ([facility]) MCH (RBC) [Entitic 29.3 26.1 - pg 03-27-2020 [facility] mass] 33.3 [facility] ([facility]) MCHC (RBC) [Mass/Vol] 32.4 31.9 - g/dL 03-27-20 20 [facility] 36.5 [facility] ([facility]) MCV (RBC) [Entitic 90.2 79 - 94.5 fL 03-27-2020 [facility] vol] [facility] ([facility]) Monocytes (Bld) 0.91 0.24 - K/uL 03-27-2020 [facility] [#/Vol] 0.93 [facility] ([facility]) Monocytes/100 WBC 9.5 % 03-27-2020 [facility] (Bld) [facility] ([facility]) Neutrophils (Bld) 7.20 1.57 - K/uL High 03-27-2020 [facility] [#/Vol] 6.19 [facility] ([facility]) Nucleated RBC/100 WBC 0.0 <=0.2 % 03-27-20 [facility] (Bld) [Ratio] /100 WBC [facility] ([facility]) Platelet mean volume 10.8 8.7 - fL 0 [facility] (Bld) [Entitic vol] 12.3 [facility] ([facility]) Platelets (Bld) 205 146 - 337 K/uL 03-27-2020 [facility] [#/Vol] [facility] (03846) RBC (Bld) [#/Vol] 4.92 OTH - OTH 10*6/uL 03-27-2020 O [facility] (40367) Segmented 75.2 % 03-27-2020 [facility] neutrophils/100 WBC MEDICAL (Bld) [facility] (46668) WBC (Bld) [#/Vol] 9.57 3.73 - K/uL 03-27-2020 [facility] 10.1 [facility] (60097) xr abdomen 1 view portable on 2020-03-26 XR ABDOMEN 1 VIEW EXAM: XR ABDOMEN 1 VIEW PORTABLE, 03/25/2020 17:4 9 PM Normal 03-26-2020 [facility] COMPARISON: 03/25/2020 [facility] CLINICAL INDICATIONS: NG Placement [facility] FINDINGS: (98573) Tubes: Interval advancement of the NG tube with the tip in the gastric body and sidehole likely just beyond the gastroesophageal junctio n. No definite pneumoperitoneum. Similar gaseous di stention mild dilation of the visualized colon. No visualized dilated loops of small bowel . No acute osseous abnormality. IMPRESSION: NG tube in appropriate position. Stable mild dilation of the visualized colon which may represent an ileus or distal obstruction. 8 :41 AM urinalysis reflex to culture performable on 2020-03-26 Appearance (U) Clear Clear Normal 03-26-2020 [facility] (00 000) Comment: Performed By: #### CKB, C7ED , HFP, ACTMJ, SALIJ, CA, MGO, TSH #### U [facility] ([facility]) [address] [place] [address] 16663 Bacteria LM.HPF (Urine ABSENT ABSENT Normal 020 [facility] sed) [#/Area] [facility] (06682) Comment: Performed By: #### CKB, C7ED , HFP, ACTMJ, SALIJ, CA, MGO, TSH #### [facility] ([facility]) [address] [address] Blood Urine Large Negative Abnormal 03-26-2020 [facility] (00 000) Comment: Performed By: #### CKB, C7ED , HFP, ACTMJ, SALIJ, CA, MGO, TSH #### [facility] ([facility]) [address] [place] [address] 59418 Color (U) Yellow Yellow Normal 03-26-2020 [facility] (00 000) Comment: Performed By: #### CKB, C7ED , HFP, ACTMJ, SALIJ, CA, MGO, TSH #### [facility] ([facility]) [address] [place] [address] 59440 Glucose Ql (U) Negative Negative Normal 03-26-2020 [facility] nter (54808) Comment: Performed By: #### CKB, C7ED , HFP, ACTMJ, SALIJ, CA, MGO, TSH #### [facility] ([facility]) [address] [place] [address] 10193 Ketones Ql (U) Trace Negative Abnormal 03-26-2020 [facility] nter (56286) Comment: Performed By: #### CKB, C7ED , HFP, ACTMJ, SALIJ, CA, MGO, TSH #### [facility] ([facility]) [address] [place] [address] 21695 Leukocyte esterase Test Negative Negative Normal 2019 [facility] strip Ql (U) [facility] (11446) Comment: Performed By: #### CKB, C7ED , HFP, ACTMJ, SALIJ, CA, MGO, TSH #### [facility] ([facility]) [address] [place] [address] 72970 Nitrites Urine Negative Negative Normal 03-26-2020 [facility] nter (67691) Comment: Performed By: #### CKB, C7ED , HFP, ACTMJ, SALIJ, CA, MGO, TSH #### [facility] ([facility]) [address] [place] [address] 78279 pH (U) 6.0 5.0-7.0 [pH] Normal 03-26-2020 [facility] (35554) Comment: Performed By: #### CKB, C7ED , HFP, ACTMJ, SALIJ, CA, MGO, TSH #### [facility] ([facility]) [address] [place] [address] 39213 Protein (U) 30 mg/dL Negative mg/dL Abnormal 03-26-2020 [facility] [Mass/Vol] [facility] (53491) Comment: Performed By: #### CKB, C7ED , HFP, ACTMJ, SALIJ, CA, MGO, TSH #### U [facility] ([facility]) [address] [place] [address] 33825 RBC LM.HPF (Urine sed) 03-16 0-2 Abnormal 020 [facility] [#/Area] Medical Ce [facility]ter (69328) Comment: Performed By: #### CKB, C7ED , HFP, ACTMJ, SALIJ, CA, MGO, TSH #### U [facility] ([facility]) [address] [place] [address] 33422 Specific [place] Urine 1.025 >1.001-<1.035 Normal [facility] (52605) Comment: Performed By: #### CKB, C7ED , HFP, ACTMJ, SALIJ, CA, MGO, TSH #### U [facility] ([facility]) [address] [place] [address] 70565 Squamous/Epithelial Cells 1/hpf = 1+ 1/hpf = 1+, Normal 0 03-26-2020 [facility] 2-5/hpf = 2+, Univer sity 0/hpf = 0+, [facility] (00 000) Comment: Performed By: #### CKB, C7ED , HFP, ACTMJ, SALIJ, CA, MGO, TSH #### U [facility] ([facility]) [address] [place] [address] 83929 Urobilinogen Urine 0.2 E.U./dL 0.2-1.0 Normal 0 [facility] (16666) Comment: Performed By: #### CKB, C7ED , HFP, ACTMJ, SALIJ, CA, MGO, TSH #### U [facility] ([facility]) [address] [place] [address] 25191 WBC LM.HPF (Urine sed) 0-5 0-5 Normal 020 [facility] [#/Area] Medical Ce nter (26988) Comment: Performed By: #### CKB, C7ED , HFP, ACTMJ, SALIJ, CA, MGO, TSH #### [facility] ([facility] [address] [place] [address] 04095 phosphate, inorganic on 2020-03-26 Phosphorous 3.2 2.2-4.6 mg/dL Normal 03-26-2020 [facility] (00 000) Comment: Performed By: #### CKB, C7ED , HFP, ACTMJ, SALIJ, CA, MGO, TSH #### [facility] ([facility]) [address] [place] [address] 78815 Phosphorous 2.6 2.2-4.6 mg/dL Normal 03-26-2020 [facility] (00 000) Comment: Performed By: #### CKB, C7ED , HFP, ACTMJ, SALIJ, CA, MGO, TSH #### [facility] ([facility]) [address] [place] [address] 51843 magnesium on 03-26 Magnesium [Mass/Vol] 2.4 1.6-2.6 mg/dL Normal 0 [facility] (94179) Comment: Performed By: #### CKB, C7ED , HFP, ACTMJ, SALIJ, CA, MGO, TSH #### [facility] ([facility]) [address] [place] [address] 77096 Magnesium [Mass/Vol] 2.4 1.6-2.6 mg/dL Normal 0 [facility] (96947) Comment: Performed By: #### CKB, C7ED , HFP, ACTMJ, SALIJ, CA, MGO, TSH #### [facility] ([facility]) [address] [place], [place] [id number] ct chest without contrast on 2020-03-26 CT CHEST WITHOUT EXAM: CT CHEST WITHOUT CONTRAST, 03/26/2020 14:41 PM Normal 03-26-2020 [facility] CONTRAST COMPARISON: No Available Comparisons. [facility] CLINICAL INDICATIONS: unexplained lactate, gomez scan; [facility] Center RELEVANT CLINICAL HISTORY: ([id number]) TECHNIQUE: Axial CT images were reconstructed from the vol umetric data set, from the thoracic inlet through the adrenal glands. No int ravenous contrast was used. Coronal MIP images were also reconstructed. FINDINGS: Lungs and Pleura: Portions of the lungs are limited by respi ratory motion artifact. Within those limitations there is a trace left pleural effusion with dependent atelectasis in the posterior left lung. Some mild underaeration of the lung bases noted but no dominant mass, consolidation or nodularity appreciated. No pneumothorax. Mild paraseptal emphysema in t he apices. Tracheobronchial tree: No abnormality. Mediastinum/Bertha: No mediastinal or hilar lympha denopathy. An NG tube courses through the esophagus into the stomach. Axilla and Supraclavicular Regions: No a xillary or supraclavicular adenopathy. Cardiovascular: The heart size is normal with no pericardial effusion. Dilatation of the ascending thoracic aorta noted at 4.3 cm w ith scattered calcified atherosclerotic disease. Generalized calcified cor onary artery disease noted as well. The central pulmonary arteries are of normal caliber. Upper Abdomen: Please see the CT abdomen report of the same date for full description of the findings. Bones and Soft Tissue: No suspicious osseous lesion. IMPRESSION: 1. Trace left pleural effusion with dependent atelectasis in the posterior left lung and generalized underaeration of the lung bases 2. No mass or lymphadenopathy. 3. Generalized calcified atherosclerotic disease of the praveena nary arteries. Dilated ascending thoracic aorta at 4.3 cm. 3: [address] abdomen/pelvis without contrast on 2020-03-26 CT ABDOMEN/PELVIS EXAM: CT ABDOMEN/PELVIS WITHOUT CONTRAST , 03/26/2020 14:38 PM Normal 03-26-2020 [facility] WITHOUT CONTRAST COMPARISON: No prior studies available for comparison . [place] CLINICAL INDICATIONS: unexplained lactate, gomez scan; [facility] TECHNIQUE: CT images of the abdomen and pelvis were pe rformed from the domes Medical of the diaphragm to the ischial tuberosities without the adm inistration of Center intravenous contrast. ([id number]) PROTOCOL: Standard. CONTRAST: iohexol (OMNIPAQUE) 300 MG/ML vial 50 mL ; Route of Administration: Oral; Dose: 50 mL. FINDINGS: Lung Bases: Please see dedicated chest CT scan of the same date for fu ll description of the intra-thoracic contents. ABDOMEN Evaluation of the solid organs is limited without intravenou s contrast. Liver: Liver is diffusely low in attenuation compatible steatosis. No focal lesions. Biliary/Gallbladder: The gallbladder is normal without evidence of radiopaq ue stones. The biliary tree is nondilated. Spleen: Spleen is normal in size and CT density. Pancreas: Pancreas is normal. There is no evidence of panc reatic mass or peripancreatic fluid. Adrenals: Adrenal glands are unremarkable. Kidneys: Status post left nephrectomy. No abnormal densit y within the nephrectomy bed. There are no stones or hydronephrosis. Retroperitoneal/Vasculature: No retroperitoneal adenopathy is identif ied. Atherosclerotic disease abdominal aorta and its branches. Gastrointestinal/Mesentery: Enteric tube tip within the stomach. The bowel loops a re non-dilated without wall thickening or mass. PELVIS Bladder: The bladder is decompressed with Mcclellan catheter. Genital: The prostate is enlarged. Bony Structures: Degenerative changes of the spine. No aggressive osseous les ions. IMPRESSION: 1. No acute intra-abdominal findings to explain the patient's abdominal pain. 2. No bowel obstruction or bowel wall thickening. 3. Status post left nephrectomy. No abnormal density within the left nephrectomy bed. 4. Scattered colonic diverticulosis without evid ence of acute diverticulitis. 5. Diffuse hepatic steatosis without focal hepatic lesion. chem 7 (lytes,bun,crea,gluc) on 2020-03-26 Anion gap [Moles/Vol] 16 7-17 mmol/L Normal 03-26-20 [facility] [place] [facility] ([id number]) Comment: Performed By: #### CKB, C7ED , HFP, ACTMJ, SALIJ, CA, MGO, TSH #### [facility] ( JOE) [address] [place] [address] 34236 Chloride [Moles/Vol] 107 98-108 mmol/L Normal 0 [facility] nter (10919) Comment: Performed By: #### CKB, C7ED , HFP, ACTMJ, SALIJ, CA, MGO, TSH #### [facility] (Dale JOSE) [address] [place] [address] 58119 CO2 [Moles/Vol] 22 22-30 mmol/L Normal 03-26-2020 [facility] nter (02338) Comment: Performed By: #### CKB, C7ED , HFP, ACTMJ, SALIJ, CA, MGO, TSH #### [facility] (Dale JOSE) [address] [place] [address] 58550 Creatinine [Mass/Vol] 0.99 0.70-1.30 mg/dL Normal 03-26-20 20 [facility] (25345) Comment: Performed By: #### CKB, C7ED , HFP, ACTMJ, SALIJ, CA, MGO, TSH #### [facility] (Dale JOSE) [address] [place] [address] 59210 EST GFR, 60 >=60 mL/min/1.73sqM Normal 03-26-20 20 [facility] (21112) Comment: Performed By: #### CKB, C7ED , HFP, ACTMJ, SALIJ, CA, MGO, TSH #### [facility] [address] [place] [address] 56202 EST GFR,Non 60 >=60 mL/min/1.73sqM Normal 03-26 [facility] (33692) Comment: Performed By: #### CKB, C7ED , HFP, ACTMJ, SALIJ, CA, MGO, TSH #### [facility] ([facility]) [address] [place] [address] 35926 Glucose [Mass/Vol] 74 70-99 mg/dL Normal 03-26-2020 [facility] nter (49037) Comment: Performed By: #### CKB, C7ED , HFP, ACTMJ, SALIJ, CA, MGO, TSH #### [facility] ([facility]) [address] [place] [address] 22555 Osmolality [Osmolality] 299 278-305 mOsm/kg Normal 2019 [facility] ([id number]) Comment: Performed By: #### CKB, C7ED , HFP, ACTMJ, SALIJ, CA, MGO, TSH #### [facility] ([facility]) [address] [place] [address] 29675 Potassium [Moles/Vol] 4.0 3.5-5.0 mmol/L Normal 03-26-20 [facility] (17979) Comment: Performed By: #### CKB, C7ED , HFP, ACTMJ, SALIJ, CA, MGO, TSH #### [facility] ([facility]) [address] [place] [address] 36950 Sodium [Moles/Vol] 141 133-143 mmol/L Normal 03-26-2020 [facility] nter (21959) Comment: Performed By: #### CKB, C7ED , HFP, ACTMJ, SALIJ, CA, MGO, TSH #### [facility] ([facility]) [address] [place] [address] 39140 Urea nitrogen [Mass/Vol] 30 7-22 mg/dL High 03-26 [facility] nter (54171) Comment: Performed By: #### CKB, C7ED , HFP, ACTMJ, SALIJ, CA, MGO, TSH #### [facility] ([facility]) [address] [place] [address] 90787 Urea nitrogen/Creatinine [Mass 30 mg/mg Normal 03-26-2020 [facility] ratio] [facility] (99878) Comment: Performed By: #### CKB, C7ED , HFP, ACTMJ, SALIJ, CA, MGO, TSH #### [facility] (Dale EFAULT) [address] [place] [address] 61597 Anion gap [Moles/Vol] 17 7-17 mmol/L Normal 03-26-20 20 [facility] nter (13284) Comment: Performed By: #### CKB, C7ED , HFP, ACTMJ, SALIJ, CA, MGO, TSH #### [facility] (Dale DIAZ) [address] [place] [address] 44291 Chloride [Moles/Vol] 109 98-108 mmol/L High 0 [facility] nter (30012) Comment: Performed By: #### CKB, C7ED , HFP, ACTMJ, SALIJ, CA, MGO, TSH #### [facility] (Dale EFJOSE) [address] [place] [address] 55408 CO2 [Moles/Vol] 19 22-30 mmol/L Low 03-26-2020 [facility] (00 000) Comment: Performed By: #### CKB, C7ED , HFP, ACTMJ, SALIJ, CA, MGO, TSH #### [facility] ([facility]ale DIAZ) [address] [place] [address] 29241 Creatinine [Mass/Vol] 0.89 0.70-1.30 mg/dL Normal 03-26-20 20 [facility] (25805) Comment: Performed By: #### CKB, C7ED , HFP, ACTMJ, SALIJ, CA, MGO, TSH #### [facility] ([facility]) [address] [place] [address] 35062 EST GFR, 60 >=60 mL/min/1.73sqM Normal 03-26-20 20 [facility] (86902) Comment: Performed By: #### CKB, C7ED , HFP, ACTMJ, SALIJ, CA, MGO, TSH #### [facility] ([facility]) [address] [place] [address] 19749 EST GFR,Non 60 >=60 mL/min/1.73sqM Normal 03-26 [facility] (57025) Comment: Performed By: #### CKB, C7ED , HFP, ACTMJ, SALIJ, CA, MGO, TSH #### [facility] ([facility]) [address] [place] [address] 83865 Glucose [Mass/Vol] 86 70-99 mg/dL Normal 03-26-2020 [facility] nter (19900) Comment: Performed By: #### CKB, C7ED , HFP, ACTMJ, SALIJ, CA, MGO, TSH #### [facility] ([facility]) [address] [place] [address] 32261 Osmolality [Osmolality] 300 278-305 mOsm/kg Normal 2019 [facility] (60449) Comment: Performed By: #### CKB, C7ED , HFP, ACTMJ, SALIJ, CA, MGO, TSH #### [facility] ([facility]) [address] [place] [address] 91820 Potassium [Moles/Vol] 3.5 3.5-5.0 mmol/L Normal 03-26-20 [facility] (86725) Comment: Performed By: #### CKB, C7ED , HFP, ACTMJ, SALIJ, CA, MGO, TSH #### [facility] ([facility]) [address] [place] [address] 30025 Sodium [Moles/Vol] 141 133-143 mmol/L Normal 03-26-2020 [facility] nter (00552) Comment: Performed By: #### CKB, C7ED , HFP, ACTMJ, SALIJ, CA, MGO, TSH #### [facility] ([facility]) [address] [place] [address] 69522 Urea nitrogen [Mass/Vol] 32 7-22 mg/dL High 03-26 [facility] nter (33196) Comment: Performed By: #### CKB, C7ED , HFP, ACTMJ, SALIJ, CA, MGO, TSH #### [facility] ([facility]) [address] [place] [address] 09777 Urea nitrogen/Creatinine [Mass 36 mg/mg Normal 03-26-2020 [facility] ratio] [facility] (69828) Comment: Performed By: #### CKB, C7ED , HFP, ACTMJ, SALIJ, CA, MGO, TSH #### [facility] ([facility]) [address] [place] [address] 54661 cbc and electronic diff on 2020-03-26 Basophils (Bld) [#/Vol] 0.09 0.00-0.09 K/uL Normal 2019 [facility] (26891) Comment: Performed By: #### CKB, C7ED , HFP, ACTMJ, SALIJ, CA, MGO, TSH #### [facility] ([facility]) [address] [place] [address] 33301 Basophils/100 WBC (Bld) 0.6 % Normal 2019 [facility] nter (16702) Comment: Performed By: #### CKB, C7ED , HFP, ACTMJ, SALIJ, CA, MGO, TSH #### [facility] ([facility]) [address] [place] [address] 16254 DIFF STATUS Electronic Differential Normal 03-08 [facility] (42941) Comment: Performed By: #### CKB, C7ED , HFP, ACTMJ, SALIJ, CA, MGO, TSH #### [facility] ([facility]) [address] [place] [address] 58938 Eosinophils (Bld) 0.04 0.00-0.48 K/uL Normal 03-26-2020 [facility] [#/Vol] [facility] (34231) Comment: Performed By: #### CKB, C7ED , HFP, ACTMJ, SALIJ, CA, MGO, TSH #### [facility] (D EFAULT) [address] [place] [address] 40705 Eosinophils/100 WBC (Bld) 0.3 % Normal 03-08 [facility] nter (53099) Comment: Performed By: #### CKB, C7ED , HFP, ACTMJ, SALIJ, CA, MGO, TSH #### [facility] ([facility]) [address] [place] [address] 27878 Hematocrit (Bld) [Volume 47.7 39.6-48.8 % Normal 03-26 [facility] fraction] [facility] (47570) Comment: Performed By: #### CKB, C7ED , HFP, ACTMJ, SALIJ, CA, MGO, TSH #### [facility] ([facility]) [address] [place] [address] 56851 Hemoglobin (Bld) 15.4 13.4-16.8 g/dL Normal 03-26-2020 [facility] [Mass/Vol] [facility] (42469) Comment: Performed By: #### CKB, C7ED , HFP, ACTMJ, SALIJ, CA, MGO, TSH #### [facility] ([facility]) [address] [place] [address] 98564 Immature Grans % 2.5 % Normal 03-26-2020 [facility] (00 000) Comment: Performed By: #### CKB, C7ED , HFP, ACTMJ, SALIJ, CA, MGO, TSH #### [facility] ([facility]) [address] [place] [address] 46408 Immature Grans Absolute 0.38 <=0.08 K/uL High 2019 [facility] nter (89561) Comment: Performed By: #### CKB, C7ED , HFP, ACTMJ, SALIJ, CA, MGO, TSH #### [facility] ([facility]) [address] [place] [address] 13950 Lymphocytes (Bld) 1.56 0.83-3.57 K/uL Normal 03-26-2020 [facility] [#/Vol] [facility] (94827) Comment: Performed By: #### CKB, C7ED , HFP, ACTMJ, SALIJ, CA, MGO, TSH #### [facility] ( EFAULT) [address] [place] [address] 88423 Lymphocytes/100 WBC (Bld) 10.4 % Normal 03-08 [facility] nter (63587) Comment: Performed By: #### CKB, C7ED , HFP, ACTMJ, SALIJ, CA, MGO, TSH #### [facility] ([facility] JOSE) [address] [place] [address] 89656 MCV (RBC) [Entitic vol] 92.1 79.0-94.5 fL Normal 2019 [facility] (30124) Comment: Performed By: #### CKB, C7ED , HFP, ACTMJ, SALIJ, CA, MGO, TSH #### [facility] ([facility]ale EFJOSE) [address] [place] [address] 65680 Mean Cell Hgb 29.7 26.1-33.3 pg Normal 03-26-2020 [facility] nter (34630) Comment: Performed By: #### CKB, C7ED , HFP, ACTMJ, SALIJ, CA, MGO, TSH #### [facility] ([facility] [address] [place] [address] 40873 Mean Cell Hgb Conc 32.3 31.9-36.5 g/dL Normal 03-26-2020 [facility] nter (25896) Comment: Performed By: #### CKB, C7ED , HFP, ACTMJ, SALIJ, CA, MGO, TSH #### [facility] ([facility]) [address] [place] [address] 12594 Monocytes (Bld) [#/Vol] 1.40 0.24-0.93 K/uL High 2019 [facility] (34903) Comment: Performed By: #### CKB, C7ED , HFP, ACTMJ, SALIJ, CA, MGO, TSH #### [facility] ([facility]) [address] [place] [address] 25199 Monocytes/100 WBC (Bld) 9.3 % Normal 2019 [facility] nter (92007) Comment: Performed By: #### CKB, C7ED , HFP, ACTMJ, SALIJ, CA, MGO, TSH #### [facility] ([facility]) [address] [place] [address] 51309 Nucleated RBC (Bld) 0.3 <=0.2 /100 WBC High 03-26-2020 [facility] [#/Vol] [facility] (49790) Comment: Performed By: #### CKB, C7ED , HFP, ACTMJ, SALIJ, CA, MGO, TSH #### [facility] ([facility]) [address] [place] [address] 20847 Platelet mean volume 10.1 8.7-12.3 fL Normal 0 [facility] (Bld) [Entitic vol] [facility] (39640) Comment: Performed By: #### CKB, C7ED , HFP, ACTMJ, SALIJ, CA, MGO, TSH #### [facility] ([facility]) [address] [place] [address] 46501 Platelets (Bld) [#/Vol] 229 146-337 K/uL Normal 2019 [facility] (71502) Comment: Performed By: #### CKB, C7ED , HFP, ACTMJ, SALIJ, CA, MGO, TSH #### [facility] ([facility]) [address] [place] [address] 54341 RBC (Bld) [#/Vol] 13.0 10.9-14.3 % Normal 03-26-2020 O [facility] nter (77036) Comment: Performed By: #### CKB, C7ED , HFP, ACTMJ, SALIJ, CA, MGO, TSH #### [facility] ([place]ale JOSE) [address] [place] [address] 37814 RBC (Bld) [#/Vol] 5.18 4.38-5.83 M/uL Normal 03-26-2020 O [facility] nter (36202) Comment: Performed By: #### CKB, C7ED , HFP, ACTMJ, SALIJ, CA, MGO, TSH #### [facility] ([facility] JOSE) [address] [place] [address] 40975 Segs + Bands Auto 76.9 % Normal 03-26-2020 O [facility] (00 000) Comment: Performed By: #### CKB, C7ED , HFP, ACTMJ, SALIJ, CA, MGO, TSH #### [facility] ([facility] JOSE) [address] [place] [address] 89884 Segs + Bands,Absolute Auto 11.55 1.57-6.19 K/uL High [facility] (65651) Comment: Performed By: #### CKB, C7ED , HFP, ACTMJ, SALIJ, CA, MGO, TSH #### [facility] ([place] JOSE) [address] [place] [address] 68503 WBC (Bld) [#/Vol] 15.02 3.73-10.10 K/uL High 03-26-2020 [facility] nter (09449) Comment: Performed By: #### CKB, C7ED , HFP, ACTMJ, SALIJ, CA, MGO, TSH #### [facility] ([facility]) [address] [place] [address] 36319 No panel information on 2020-03-26 Anion gap 16 7 - 17 mmol/L 03-26-2020 [facility] [Moles/Vol] [facility] ([id number]) Chloride 107 98 - 108 mmol/L 03-26-2020 [facility] [Moles/Vol] [facility] ([facility]) CO2 [Moles/Vol] 22 22 - 30 mmol/L 03-26-2020 [facility] ([facility]) Creatinine 0.99 0.7 - 1.3 mg/dL 03-26-2020 [facility] [Mass/Vol] [facility] ([facility]) GFR/1.73 sq >=60 >=60 mL/min/{1 03-26-2020 [facility] M.predicted MDRD mL/min/1.73 .73_m2} [facility] (S/P/Bld) [Vol sqM MEDIC AL rate/Area] [facility] ([facility]) Glucose 74 70 - 99 mg/dL 03-26-2020 [facility] [Mass/Vol] [facility] ([facility]) Interpretation Abnormal 03-26-2020 [facility] and review of [facility] laboratory [facility] results [facility] ([facility]) Interpretation Normal 03-26-2020 [facility] and review of [facility] laboratory [facility] results [facility] ([facility]) Magnesium 2.4 1.6 - 2.6 mg/dL 03-26-2020 [facility] [Mass/Vol] [facility] ([facility]) Osmolality Calc 299 OTH - OTH 03-26-2020 [facility] [Osmolality] [facility] ([facility]) Phosphate 3.2 2.2 - 4.6 mg/dL 03-26-2020 [facility] [Mass/Vol] [facility] ([id number]) Potassium 4.0 3.5 - 5 mmol/L 03-26-2020 [facility] [Moles/Vol] [facility] (30625) Sodium 141 133 - 143 mmol/L 03-26-2020 [facility] [Moles/Vol] [facility] ([facility]) Urea nitrogen 30 7 - 22 mg/dL High 03-26-2020 [facility] [Mass/Vol] [facility] ([facility]) Urea 30 mg/mg 03-26-2020 [facility] nitrogen/Creatini [facility] ne [Mass ratio] [facility] ([facility]) Appearance (U) Clear Clear 03-26-2020 [facility] ([id number]) Bacteria LM Ql ABSENT ABSENT 03-26-2020 [facility] (Urine sed) [facility] ([facility]) Color (U) Yellow Yellow 03-26-2020 [facility] ([id number]) Glucose Test Negative Negative 03-26-2020 [facility] strip (U) [facility] [Mass/Vol] [facility] ([facility]) Interpretation Abnormal 03-26-2020 [facility] and review of [facility] laboratory MEDICAL results [place] ([facility]) Ketones (U) Trace Negative Abnormal 03-26-2020 [facility] [Mass/Vol] [facility] ([id number]) Leukocyte Negative Negative 03-26-2020 [facility] esterase Test [facility] strip Ql (U) [facility] ([facility]) Nitrite Ql (U) Negative Negative 03-26-2020 [facility] ([facility]) pH (U) 6.0 5.0 - 7.0 [pH] 03-26-2020 [facility] ([facility]) Protein (U) 30 mg/dL Negative mg/dL Abnormal 03-26-2020 [facility] [Mass/Vol] [facility] ([id number]) RBC (U) [#/Vol] Large Negative Abnormal 03-26-2020 [facility] ([id number]) RBC LM.HPF (Urine 6-9 0 - 2 /HPF Abnormal 03-26-2020 [facility] sed) [#/Area] [facility] ([facility]) Specific gravity 1.025 OTH - OTH 03-26-2020 [facility] U (U) [Rel density] [facility] ([facility]) Squamous/Epitheli 1/hpf = 1+ 1/hpf = 1+, 0 [facility] al Cells 2-5/hpf = [facility] 2+, 0/hpf = MEDICAL 0+, ABSENT [facility] ([id number]) Urobilinogen (U) 0.2 E.U./dL 0.2 - 1.0 03-26-2020 [facility] [Mass/Vol] [facility] ([id number]) WBC LM.HPF (Urine 0-5 0 - 5 /HPF 03-26-2020 [facility] sed) [#/Area] [facility] ([facility]) User, Interfaces - 0 5:14 PM EDT EXAM: CT ABDOMEN/PELVIS WITHOUT CONTRAST, 03/26/2020 14:38 PM 03-26-2020 [facility] COMPARISON: No prior studies available for comparison. [facility] CENTER CLINICAL INDICATIONS: unexplained lactate, gomez scan; ([id number]) TECHNIQUE: CT images of the abdomen and pelvis were pe rformed from the domes of the diaphragm to the ischial tuberosities without the adm inistration of intravenous contrast. PROTOCOL: Standard. CONTRAST: iohexol (OMNIPAQUE) 300 MG/ML vial 50 mL ; Route of Administration: Oral; Dose: 50 mL. FINDINGS: Lung Bases: Please see dedicated chest CT scan of the same date for fu ll description of the intra-thoracic contents. ABDOMEN Evaluation of the solid organs is limited without intravenou s contrast. Liver: Liver is diffusely low in attenuation compatible steatosis. No focal lesions. Biliary/Gallbladder: The gallbladder is normal without evidence of radiopaq ue stones. The biliary tree is nondilated. Spleen: Spleen is normal in size and CT density. Pancreas: Pancreas is normal. There is no evidence of panc reatic mass or peripancreatic fluid. Adrenals: Adrenal glands are unremarkable. Kidneys: Status post left nephrectomy. No abnormal densit y within the nephrectomy bed. There are no stones or hydronephrosis. Retroperitoneal/Vasculature: No retroperitoneal adenopathy is identif ied. Atherosclerotic disease abdominal aorta and its branches. Gastrointestinal/Mesentery: Enteric tube tip within the stomach. The bowel loops a re non-dilated without wall thickening or mass. PELVIS Bladder: The bladder is decompressed with Mcclellan catheter. Genital: The prostate is enlarged. Bony Structures: Degenerative changes of the spine. No aggressive osseous les ions. IMPRESSION IMPRESSION: 1. No acute intra-abdominal findings to explain the patient's abdominal pain. 2. No bowel obstruction or bowel wall thickening. 3. Status post left nephrectomy. No abnormal density within the left nephrectomy bed. 4. Scattered colonic diverticulosis without evid ence of acute diverticulitis. 5. Diffuse hepatic steatosis without focal hepatic lesion. 20 5:11 PM IMPRESSION: 1. No 03-26-2020 [facility] acute [facility] intra-abdominal MEDI ERNST findings to explain CENTER the patient's ([id number] ) abdominal pain. 2. No bowel obstruction or bowel wall thickening. 3. Status post left nephrectomy. No abnormal density within the left nephrectomy bed. 4. Scattered colonic diverticulosis without evidence of acute diverticulitis. 5. Diffuse hepatic steatosis without focal hepatic lesion. : CT 03-26-2020 [facility] ABDOMEN/PELVIS [facility] WITHOUT CONTRAST, ME DICAL 03/26/2020 14:38 PM CENTER COMPARISON: No ([id number] [id number]) prior studies available for comparison. CLINICAL INDICATIONS: unexplained lactate, gomez scan; TECHNIQUE: CT images of the abdomen and pelvis were performed from the domes of the diaphragm to the ischial tuberosities without the administration of intravenous contrast. PROTOCOL: Standard. CONTRAST: iohexol (OMNIPAQUE) 300 MG/ML vial 50 mL; Route of Administration: Oral; Dose: 50 mL. FINDINGS: Lung Bases: Please see dedicated chest CT scan of the same date for full description of the intra-thoracic contents. ABDOMEN Evaluation of the solid organs is limited without intravenous contrast. Liver: Liver is diffusely low in attenuation compatible steatosis. No focal lesions. Biliary/Gallbladder : The gallbladder is normal without evidence of radiopaque stones. The biliary tree is nondilated. Spleen: Spleen is normal in size and CT density. Pancreas: Pancreas is normal. There is no evidence of pancreatic mass or peripancreatic fluid. Adrenals: Adrenal glands are unremarkable. Kidneys: Status post left nephrectomy. No abnormal density within the nephrectomy bed. There are no stones or hydronephrosis. Retroperitoneal/Vas culature: No retroperitoneal adenopathy is identified. Atherosclerotic disease abdominal aorta and its branches. Gastrointestinal/Me sentery: Enteric tube tip within the stomach. The bowel loops are non-dilated without wall thickening or mass. PELVIS Bladder: The bladder is decompressed with Mcclellan catheter. Genital: The prostate is enlarged. Bony Structures: Degenerative changes of the spine. No aggressive osseous lesions. IMPRESSION: 1. 03-26-2020 [facility] Trace left pleural [facility] effusion with MEDICA L dependent CENTER atelectasis in the ( [id number]) posterior left lung and generalized underaeration of the lung bases 2. No mass or lymphadenopathy. 3. Generalized calcified atherosclerotic disease of the coronary arteries. Dilated ascending thoracic aorta at 4.3 cm. : CT CHEST 03-26-2020 [facility] WITHOUT CONTRAST, [facility] 03/26/2020 14:41 PM MEDICAL COMPARISON: No CENTE R Available ([id number]) Comparisons. CLINICAL INDICATIONS: unexplained lactate, gomez scan; RELEVANT CLINICAL HISTORY: TECHNIQUE: Axial CT images were reconstructed from the volumetric data set, from the thoracic inlet through the adrenal glands. No intravenous contrast was used. Coronal MIP images were also reconstructed. FINDINGS: Lungs and Pleura: Portions of the lungs are limited by respiratory motion artifact. Within those limitations there is a trace left pleural effusion with dependent atelectasis in the posterior left lung. Some mild underaeration of the lung bases noted but no dominant mass, consolidation or nodularity appreciated. No pneumothorax. Mild paraseptal emphysema in the apices. Tracheobronchial tree: No abnormality. Mediastinum/Bertha: No mediastinal or hilar lymphadenopathy. An NG tube courses through the esophagus into the stomach. Axilla and Supraclavicular Regions: No axillary or supraclavicular adenopathy. Cardiovascular: The heart size is normal with no pericardial effusion. Dilatation of the ascending thoracic aorta noted at 4.3 cm with scattered calcified atherosclerotic disease. Generalized calcified coronary artery disease noted as well. The central pulmonary arteries are of normal caliber. Upper Abdomen: Please see the CT abdomen report of the same date for full description of the findings. Bones and Soft Tissue: No suspicious osseous lesion. User, Interfaces - 0 3:07 PM EDT EXAM: CT CHEST WITHOUT CONTRAST, 03/26/2020 14:41 PM 03-26-2020 [facility] COMPARISON: No Available Comparisons. [facility] CLINICAL INDICATIONS: unexplained lactate, gomez scan; ([id number]) RELEVANT CLINICAL HISTORY: TECHNIQUE: Axial CT images were reconstructed from the vol umetric data set, from the thoracic inlet through the adrenal glands. No int ravenous contrast was used. Coronal MIP images were also reconstructed. FINDINGS: Lungs and Pleura: Portions of the lungs are limited by respi ratory motion artifact. Within those limitations there is a trace left pleural effusion with dependent atelectasis in the posterior left lung. Some mild underaeration of the lung bases noted but no dominant mass, consolidation or nodularity appreciated. No pneumothorax. Mild paraseptal emphysema in t he apices. Tracheobronchial tree: No abnormality. Mediastinum/Bertha: No mediastinal or hilar lympha denopathy. An NG tube courses through the esophagus into the stomach. Axilla and Supraclavicular Regions: No a xillary or supraclavicular adenopathy. Cardiovascular: The heart size is normal with no pericardial effusion. Dilatation of the ascending thoracic aorta noted at 4.3 cm w ith scattered calcified atherosclerotic disease. Generalized calcified cor onary artery disease noted as well. The central pulmonary arteries are of normal caliber. Upper Abdomen: Please see the CT abdomen report of the same date for full description of the findings. Bones and Soft Tissue: No suspicious osseous lesion. IMPRESSION IMPRESSION: 1. Trace left pleural effusion with dependent atelectasis in the posterior left lung and generalized underaeration of the lung bases 2. No mass or lymphadenopathy. 3. Generalized calcified atherosclerotic disease of the praveena nary arteries. Dilated ascending thoracic aorta at 4.3 cm. 3: 04 PM Interpretation Normal 03-26-2020 [facility] and review of [facility] laboratory MEDICAL results CENTER ([id number]) Magnesium 2.4 1.6 - 2.6 mg/dL 03-26-2020 [facility] [Mass/Vol] [facility] ([id number]) Phosphate 2.6 2.2 - 4.6 mg/dL 03-26-2020 [facility] [Mass/Vol] [facility] ([id number]) EXAM: XR ABDOMEN 1 03-26-2020 [facility] VIEW PORTABLE, Chlorine GenieNE R 03/25/2020 17:49 PM MEDICAL COMPARISON: [facility] 03/25/2020 CLINICAL ( [id number]) INDICATIONS: NG Placement FINDINGS: Tubes: Interval advancement of the NG tube with the tip in the gastric body and sidehole likely just beyond the gastroesophageal junction. No definite pneumoperitoneum. Similar gaseous distention mild dilation of the visualized colon. No visualized dilated loops of small bowel. No acute osseous abnormality. User, Interfaces - 0 8:44 AM EDT EXAM: XR ABDOMEN 1 VIEW PORTABLE, 03/25/2020 17:49 PM 03-26-2020 [facility] COMPARISON: 03/25/2020 [facility] CLINICAL INDICATIONS: NG Placement ([id number]) FINDINGS: Tubes: Interval advancement of the NG tube with the tip in the gastric body and sidehole likely just beyond the gastroesophageal junctio n. No definite pneumoperitoneum. Similar gaseous di stention mild dilation of the visualized colon. No visualized dilated loops of small bowel . No acute osseous abnormality. IMPRESSION IMPRESSION: NG tube in appropriate position. Stable mild dilation of the visualized colon which may represent an ileus or distal obstruction. 8 :41 AM IMPRESSION: NG tube 03-26-2020 [facility] in appropriate [facility] R position. Stable MED ICAL mild dilation of [address] TER the visualized (4321 0) colon which may represent an ileus or distal obstruction. Anion gap 17 7 - 17 mmol/L 03-26-2020 [facility] [Moles/Vol] [facility] ([id number]) Chloride 109 98 - 108 mmol/L High 03-26-2020 [facility] [Moles/Vol] [facility] ([id number]) CO2 [Moles/Vol] 19 22 - 30 mmol/L Low 03-26-2020 [facility] ([id number]) Creatinine 0.89 0.7 - 1.3 mg/dL 03-26-2020 [facility] [Mass/Vol] [facility] ([id number]) GFR/1.73 sq >=60 >=60 mL/min/{1 03-26-2020 [facility] M.predicted MDRD mL/min/1.73 .73_m2} [facility] (S/P/Bld) [Vol sqM MEDIC AL rate/Area] CENTER ([id number]) Glucose 86 70 - 99 mg/dL 03-26-2020 [facility] [Mass/Vol] [facility] ([id number]) Interpretation Abnormal 03-26-2020 [facility] and review of [facility] laboratory MEDICAL results [facility] ([facility]) Osmolality Calc 300 OTH - OTH 03-26-2020 [facility] [Osmolality] [facility] ([facility]) Potassium 3.5 3.5 - 5 mmol/L 03-26-2020 [facility] [Moles/Vol] [facility] ([id number]) Sodium 141 133 - 143 mmol/L 03-26-2020 [facility] [Moles/Vol] [facility] ([id number]) Urea nitrogen 32 7 - 22 mg/dL High 03-26-2020 [facility] [Mass/Vol] [facility] ([id number]) Urea 36 mg/mg 03-26-2020 [facility] nitrogen/Creatini [facility] ne [Mass ratio] [facility] ([id number]) Basophils (Bld) 0.09 0 - 0.09 K/uL 03-26-2020 [facility] [#/Vol] [facility] ([id number]) Basophils/100 WBC 0.6 % 03-26-2020 [facility] (Bld) [facility] ([facility]) DIFF STATUS Electronic 03-26-2020 [facility] Differential [facility] ([facility]) Eosinophils (Bld) 0.04 0 - 0.48 K/uL 03-26-2020 [facility] [#/Vol] [facility] ([facility]) Eosinophils/100 0.3 % 03-26-2020 [facility] WBC (Bld) [facility] ([facility]) Erythrocyte 13.0 10.9 - 14.3 % 03-26-2020 [facility] distribution [facility] width (RBC) MEDICAL [Ratio] [facility] ([id number]) Hematocrit (Bld) 47.7 39.6 - 48.8 % 03-26-2020 [facility] [Volume fraction] [facility] ([facility]) Hemoglobin (Bld) 15.4 13.4 - 16.8 g/dL 03-26-2020 [facility] [Mass/Vol] [facility] ([id number]) Immature 0.38 <=0.08 K/uL High 03-26-2020 [facility] granulocytes [facility] (Bl) [#/Vol] [facility] ([id number]) Immature 2.5 % 03-26-2020 [facility] granulocytes/100 [facility] NER WBC (Bld) [facility] ([facility]) Interpretation Abnormal 03-26-2020 [facility] and review of [facility] laboratory MEDICAL results [facility] ([facility]) Lymphocytes (Bld) 1.56 0.83 - 3.57 K/uL 03-26-2020 [facility] [#/Vol] [facility] ([facility]) Lymphocytes/100 10.4 % 03-26-2020 [facility] WBC (Bld) [facility] ([facility]) MCH (RBC) 29.7 26.1 - 33.3 pg 03-26-2020 [facility] [Entitic mass] [facility] ([id number]) MCHC (RBC) 32.3 31.9 - 36.5 g/dL 03-26-2020 [facility] [Mass/Vol] [facility] ([id number]) MCV (RBC) 92.1 79 - 94.5 fL 03-26-2020 [facility] [Entitic vol] [facility] ([id number]) Monocytes (Bld) 1.40 0.24 - 0.93 K/uL High 03-26-2020 [facility] [#/Vol] [facility] ([id number]) Monocytes/100 WBC 9.3 % 03-26-2020 [facility] (Bld) [facility] ([facility]) Neutrophils (Bld) 11.55 1.57 - 6.19 K/uL High 03-26-2020 [facility] [#/Vol] [facility] ([id number]) Nucleated RBC/100 0.3 <=0.2 /100 % High 03-26-2020 [facility] WBC (Bld) [Ratio] WBC [facility] ([facility]) Platelet mean 10.1 8.7 - 12.3 fL 03-26-2020 [facility] volume (Bld) [facility] [Entitic vol] [facility] ([id number]) Platelets (Bld) 229 146 - 337 K/uL 03-26-2020 [facility] [#/Vol] [facility] ([id number]) RBC (Bld) [#/Vol] 5.18 OTH - OTH 10*6/uL 03-26-2020 [facility] ([facility]) Segmented 76.9 % 03-26-2020 [facility] neutrophils/100 [facility] WBC (Bld) [facility] ([id number]) WBC (Bld) [#/Vol] 15.02 3.73 - 10.1 K/uL High 03-26-2020 [facility] ([id number]) xr abdomen 1 view portable on 2020-03-25 XR ABDOMEN 1 VIEW EXAM: XR ABDOMEN 1 VIEW PORTABLE, 03/25/2020 16:1 4 PM Normal 03-25-2020 [facility] COMPARISON: No prior abdominal radiographs available f or comparison. [facility] CLINICAL INDICATIONS: [facility] FINDINGS: ([id number]) Tubes: An enteric tube overlies the prox imal stomach with the side-port at the GE junction. The pelvis is not imaged. There is mild gaseous dilatation of the colon. No dilated small bowel loops are seen. No o bvious free air is identified. Osseous structures are intact. IMPRESSION: Side port of the enteric tube is at the GE junct ion. Recommend advancement of 5 to 7 cm. 7 :08 PM mri brain with and without contrast on 2020-03-25 MRI BRAIN WITH EXAM: MRI BRAIN WITH AND WITHOUT CONTRAST, 0 00:06 AM Normal 03-25-2020 [facility] AND WITHOUT COMPARISON: Head CT March 21, 2020. [facility] CONTRAST CLINICAL INDICATIONS: 64 yea rs Male altered mental status; al [facility] hypointensity in R BG; ([id number]) RELEVANT CLINICAL HISTORY: TECHNIQUE: A series of multisequence, multiplanar images of the brain are obtained both before and after intravenous admin istration of gadolinium-based contrast using standard protocol. CONTRAST: gadoterate Meglumine (DOTAREM) 5 MMOL/10ML injection 3-60 mL ; Route of Administration: Intravenous; Dose: 19 mL. FINDINGS: There is restricted diffusion and FLAIR hyperint ensity within the right basal ganglia including the thalamus and caudate nucleus as well a s the internal capsule consistent with an acute infarct in the right lateral lenticulostriate vascular territory. There is no significant mass effect or h emorrhagic transformation. There is also a large area of cystic encephaloma lacia and surrounding gliosis throughout the left frontal and parietal lobes with ex vacuo dilation of the left lateral ventricle. Hemosiderin staining in the encephal omalacia is consistent with sequela of remote hemorr davide. Wallerian degeneration involving the left thalamus, cerebral peduncle and left aspect of the brainstem is noted. In the right hemisphere there is encephalomalacia wit hin the medial parietal lobe as well. There is otherwis e periventricular FLAIR hyperintensity which is nonspecific although may be due to chronic small ve ssel ischemic change. No contrast-enhancing lesions are seen within the brain. Left lateral ventricle is markedly dilat ed due to ex vacuo enlargement and its lateral brain volume loss as described. There is no evidence for acute hydrocephalus. No extracerebral fluid collections are seen. Bilateral mastoid effusions are noted. 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 Extensive cystic encephalomalacia throughout the left fronta l and parietal lobes with ex vacuo dilation of left lateral ventricle . Hemosiderin staining within the encephalomalacia is consistent with remote hemorr hagic change. There is also encephalomalacia in the right hebert etal lobe to a lesser extent. lipid panel w calculated ldl on 2020-03-25 Calculated LDL Cholesterol 126 0-99 mg/dL High [facility] ([id number]) Comment: Result Comment: [<100 mg/dL: Optimal] [100-129 mg/dL: Near Optimal ] [130-159 mg/dL: Borderline H igh] [160-189 mg/dL: High] [>189 mg/dL: Very High] Performed By: #### CKB, C7ED , HFP, ACTMJ, SALIJ, CA, MGO, TSH #### [facility] ([facility]ale DIAZ) [address] [place] [address] 01085 Cholesterol [Mass/Vol] 191 <200 mg/dL Normal 020 [facility] nter (30740) Comment: Result Comment: [<200 mg/dL: Desirable] [200-239 mg/dL: Borderline H igh] [>239 mg/dL: High] Performed By: #### CKB, C7ED , HFP, ACTMJ, SALIJ, CA, MGO, TSH #### [facility] ([facility]) [address] [place] [address] 26973 Cholesterol in HDL [Mass/Vol] 32 >=40 mg/dL Low 03-25-2020 [facility] ([id number]) Comment: Result Comment: [<40 mg/dL: Low (High Risk)] [>59 mg/dL: High (Low Risk)] Performed By: #### CKB, C7ED , HFP, ACTMJ, SALIJ, CA, MGO, TSH #### [facility] ([facility] DIA[facility]) [address] [place] [address] 54856 Non HDL Cholesterol 159 <130 mg/dL High 03-25-2020 [facility] nter ([id number]) Comment: Performed By: #### CKB, C7ED , HFP, ACTMJ, SALIJ, CA, MGO, TSH #### [facility] ([facility]ale DIA[facility]) [address] [place] [address] 64787 Total Cholesterol/HDL Ratio 6.0 <4.5 High [facility] nter (78991) Comment: Performed By: #### CKB, C7ED , HFP, ACTMJ, SALIJ, CA, MGO, TSH #### [facility] ([facility]) [address] [place] [address] 02063 Triglyceride [Mass/Vol] 166 <150 mg/dL High 2019 [facility] nter (66348) Comment: Result Comment: [<150 mg/dL: Desirable] [150-199 mg/dL: Borderline] [200-499 mg/dL: High] [>500 mg/dL: Very High] Performed By: #### CKB, C7ED , HFP, ACTMJ, SALIJ, CA, MGO, TSH #### [facility] ([facility]) [address] [place] [address] 41534 lactate, blood on Lactate, Blood 2.2 0.5-1.6 mmol/L High 03-25-2020 [facility] nter (07528) Comment: Performed By: #### CKB, C7ED , HFP, ACTMJ, SALIJ, CA, MGO, TSH #### [facility] ([facility]) [address] [place] [address] 87525 hemoglobin a1c on HbA1c (Bld) [Mass 5.6 4.7-5.6 % Normal 03-25-2020 [facility] fraction] [facility] (28981) Comment: Performed By: #### CKB, C7ED , HFP, ACTMJ, SALIJ, CA, MGO, TSH #### [facility] ([facility]) [address] [place] [address] 73215 HbA1c (Bld) [Mass fraction] 114 mg/dL Normal [facility] nter (29463) Comment: Performed By: #### CKB, C7ED , HFP, ACTMJ, SALIJ, CA, MGO, TSH #### [facility] ([facility]) [address] [place] [address] 94660 chem 7 (lytes,bun,crea,gluc) on 2020-03-25 Anion gap [Moles/Vol] 13 7-17 mmol/L Normal 03-25-20 [facility] nter (74488) Comment: Performed By: #### CKB, C7ED , HFP, ACTMJ, SALIJ, CA, MGO, TSH #### [facility] ([facility]) [address] [place] [address] 83392 Chloride [Moles/Vol] 106 98-108 mmol/L Normal 0 [facility] nter (98703) Comment: Performed By: #### CKB, C7ED , HFP, ACTMJ, SALIJ, CA, MGO, TSH #### [facility] ([facility]) [address] [place] [address] 38330 CO2 [Moles/Vol] 23 22-30 mmol/L Normal 03-25-2020 [facility] nter (64821) Comment: Performed By: #### CKB, C7ED , HFP, ACTMJ, SALIJ, CA, MGO, TSH #### [facility] ([facility]) [address] [place] [address] 18180 Creatinine [Mass/Vol] 0.93 0.70-1.30 mg/dL Normal 03-25-20 20 [facility] ([id number]) Comment: Performed By: #### CKB, C7ED , HFP, ACTMJ, SALIJ, CA, MGO, TSH #### [facility] ([facility]) [address] [place] [address] EST GFR, 60 >=60 mL/min/1.73sqM Normal 03-25-20 [facility] (52358) Comment: Performed By: #### CKB, C7ED , HFP, ACTMJ, SALIJ, CA, MGO, TSH #### [facility] ([facility]) [address] [place] [address] 48466 EST GFR,Non 60 >=60 mL/min/1.73sqM Normal 03-25 [facility] (16006) Comment: Performed By: #### CKB, C7ED , HFP, ACTMJ, SALIJ, CA, MGO, TSH #### [facility] ([facility]) [address] [place] [address] 97145 Glucose [Mass/Vol] 121 70-99 mg/dL High 03-25-2020 [facility] nter (45268) Comment: Performed By: #### CKB, C7ED , HFP, ACTMJ, SALIJ, CA, MGO, TSH #### [facility] ([facility]) [address] [place] [address] 15835 Osmolality [Osmolality] 297 278-305 mOsm/kg Normal 2019 [facility] (07543) Comment: Performed By: #### CKB, C7ED , HFP, ACTMJ, SALIJ, CA, MGO, TSH #### [facility] ([facility]) [address] [place] [address] 77109 Potassium [Moles/Vol] 4.1 3.5-5.0 mmol/L Normal 03-25-20 [facility] (06097) Comment: Performed By: #### CKB, C7ED , HFP, ACTMJ, SALIJ, CA, MGO, TSH #### [facility] ([facility]) [address] [place] [address] 85296 Sodium [Moles/Vol] 138 133-143 mmol/L Normal 03-25-2020 [facility] (33133) Comment: Performed By: #### CKB, C7ED , HFP, ACTMJ, SALIJ, CA, MGO, TSH #### [facility] ([facility]) [address] [place] [address] 63198 Urea nitrogen [Mass/Vol] 30 7-22 mg/dL High 03-25 [facility] (82695) Comment: Performed By: #### CKB, C7ED , HFP, ACTMJ, SALIJ, CA, MGO, TSH #### [facility] ([facility]) [address] [place] [address] 70693 Urea nitrogen/Creatinine [Mass 32 mg/mg Normal 03-25-2020 [facility] ratio] [facility] (12939) Comment: Performed By: #### CKB, C7ED , HFP, ACTMJ, SALIJ, CA, MGO, TSH #### [facility] ([facility]) [address] [place] [address] 88718 cbc and electronic diff on 2020-03-25 Basophils (Bld) [#/Vol] 0.04 0.00-0.09 K/uL Normal 2019 [facility] (47149) Comment: Performed By: #### CKB, C7ED , HFP, ACTMJ, SALIJ, CA, MGO, TSH #### [facility] ([facility]) [address] [place] [address] 05457 Basophils/100 WBC (Bld) 0.3 % Normal 2019 [facility] (78337) Comment: Performed By: #### CKB, C7ED , HFP, ACTMJ, SALIJ, CA, MGO, TSH #### [facility] ([facility]) [address] [place] [address] 92410 DIFF STATUS Electronic Differential Normal 03-08 [facility] (50898) Comment: Performed By: #### CKB, C7ED , HFP, ACTMJ, SALIJ, CA, MGO, TSH #### [facility] ([facility]) [address] [place] [address] 78721 Eosinophils (Bld) 0.04 0.00-0.48 K/uL Normal 03-25-2020 [facility] [#/Vol] [facility] (14435) Comment: Performed By: #### CKB, C7ED , HFP, ACTMJ, SALIJ, CA, MGO, TSH #### [facility] ([facility]) [address] [place] [address] 95461 Eosinophils/100 WBC (Bld) 0.1 % Normal 03-08 [facility] nter (79636) Comment: Performed By: #### CKB, C7ED , HFP, ACTMJ, SALIJ, CA, MGO, TSH #### [facility] ([facility]) [address] [place] [address] 64066 Hematocrit (Bld) [Volume 42.5 39.6-48.8 % Normal 03-25 [facility] fraction] [facility] (69379) Comment: Performed By: #### CKB, C7ED , HFP, ACTMJ, SALIJ, CA, MGO, TSH #### [facility] ([facility]) [address] [place] [address] 05308 Hemoglobin (Bld) 13.9 13.4-16.8 g/dL Normal 03-25-2020 [facility] [Mass/Vol] [facility] (58115) Comment: Performed By: #### CKB, C7ED , HFP, ACTMJ, SALIJ, CA, MGO, TSH #### [facility] ([facility]) [address] [place] [address] 47313 Immature Grans % 2.6 % Normal 03-25-2020 [facility] (00 000) Comment: Performed By: #### CKB, C7ED , HFP, ACTMJ, SALIJ, CA, MGO, TSH #### [facility] ([facility]) [address] [place] [address] 37778 Immature Grans Absolute 0.36 <=0.08 K/uL High 2019 [facility] nter (00971) Comment: Performed By: #### CKB, C7ED , HFP, ACTMJ, SALIJ, CA, MGO, TSH #### [facility] ([facility]) [address] [place] [address] 26561 Lymphocytes (Bld) 0.94 0.83-3.57 K/uL Normal 03-25-2020 [facility] [#/Vol] [facility] (26148) Comment: Performed By: #### CKB, C7ED , HFP, ACTMJ, SALIJ, CA, MGO, TSH #### [facility] ([facility]) [address] [place] [address] 06453 Lymphocytes/100 WBC (Bld) 6.8 % Normal 03-08 [facility] nter (27359) Comment: Performed By: #### CKB, C7ED , HFP, ACTMJ, SALIJ, CA, MGO, TSH #### [facility] ([facility]) [address] [place] [address] 77964 MCV (RBC) [Entitic vol] 90.6 79.0-94.5 fL Normal 2019 [facility] (99245) Comment: Performed By: #### CKB, C7ED , HFP, ACTMJ, SALIJ, CA, MGO, TSH #### [facility] ([facility]) [address] [place] [address] 04189 Mean Cell Hgb 29.6 26.1-33.3 pg Normal 03-25-2020 [facility] (19520) Comment: Performed By: #### CKB, C7ED , HFP, ACTMJ, SALIJ, CA, MGO, TSH #### [facility] ([facility]) [address] [place] [address] 12477 Mean Cell Hgb Conc 32.7 31.9-36.5 g/dL Normal 03-25-2020 [facility]ter (30464) Comment: Performed By: #### CKB, C7ED , HFP, ACTMJ, SALIJ, CA, MGO, TSH #### [facility] ([facility]) [address] [place] [address] 28902 Monocytes (Bld) [#/Vol] 0.64 0.24-0.93 K/uL Normal 2019 [facility] (60690) Comment: Performed By: #### CKB, C7ED , HFP, ACTMJ, SALIJ, CA, MGO, TSH #### [facility] ([facility]) [address] [place] [address] 62154 Monocytes/100 WBC (Bld) 4.6 % Normal 2019 [facility]ter (08790) Comment: Performed By: #### CKB, C7ED , HFP, ACTMJ, SALIJ, CA, MGO, TSH #### [facility] ([facility]) [address] [place] [address] 53379 Nucleated RBC (Bld) 0.1 <=0.2 /100 WBC Normal 03-25-2020 [facility] [#/Vol] [facility] (95600) Comment: Performed By: #### CKB, C7ED , HFP, ACTMJ, SALIJ, CA, MGO, TSH #### [facility] ([facility]) [address] [place] [address] 75288 Platelet mean volume 10.5 8.7-12.3 fL Normal 0 [facility] (Bld) [Entitic vol] [facility] (08199) Comment: Performed By: #### CKB, C7ED , HFP, ACTMJ, SALIJ, CA, MGO, TSH #### [facility] ([facility]) [address] [place] [address] 99795 Platelets (Bld) [#/Vol] 217 146-337 K/uL Normal 2019 [facility] (04769) Comment: Performed By: #### CKB, C7ED , HFP, ACTMJ, SALIJ, CA, MGO, TSH #### [facility] ([facility]) [address] [place] [address] 98460 RBC (Bld) [#/Vol] 4.69 4.38-5.83 M/uL Normal 03-25-2020 O [facility] nter (49954) Comment: Performed By: #### CKB, C7ED , HFP, ACTMJ, SALIJ, CA, MGO, TSH #### [facility] ([facility]) [address] [place] [address] 58245 RBC (Bld) [#/Vol] 13.1 10.9-14.3 % Normal 03-25-2020 O [facility] nter (07145) Comment: Performed By: #### CKB, C7ED , HFP, ACTMJ, SALIJ, CA, MGO, TSH #### [facility] ([facility]) [address] [place] [address] 97337 Segs + Bands Auto 85.6 % Normal 03-25-2020 O [facility] (00 000) Comment: Performed By: #### CKB, C7ED , HFP, ACTMJ, SALIJ, CA, MGO, TSH #### [facility] ([facility]) [address] [place] [address] 76506 Segs + Bands,Absolute Auto 11.90 1.57-6.19 K/uL High [facility] (46253) Comment: Performed By: #### CKB, C7ED , HFP, ACTMJ, SALIJ, CA, MGO, TSH #### [facility] ([facility]) [address] [place] [address] 53915 WBC (Bld) [#/Vol] 13.89 3.73-10.10 K/uL High 03-25-2020 [place] [facility] [facility] nter ([id number]) Comment: Performed By: #### CKB, C7ED , HFP, ACTMJ, SALIJ, CA, MGO, TSH #### [facility] (Dale DIAZ) [address] [place] [id number] No panel information on 2020-03-25 Bacteria identified No Growth 03-25-2020 [facility] Cx Nom (Unsp spec) M [facility] ([id number]) IMPRESSION: Side port 03-25-20 20 [facility] of the enteric tube MEDICAL is at the GE CENTER junction. Recommend ([id number]) advancement of 5 to 7 cm. : XR ABDOMEN 1 03-25-2020 [facility] VIEW PORTABLE, MEDIC AL 03/25/2020 16:14 PM CENTER COMPARISON: No prior ([id number]) abdominal radiographs available for comparison. CLINICAL INDICATIONS: NG Placement FINDINGS: Tubes: An enteric tube overlies the proximal stomach with the side-port at the GE junction. The pelvis is not imaged. There is mild gaseous dilatation of the colon. No dilated small bowel loops are seen. No obvious free air is identified. Osseous structures are intact. User, Interfaces - 0 7:11 PM EDT EXAM: XR ABDOMEN 1 VIEW PORTABLE, 03/25/2020 16:14 PM 03-25-2020 [facility] MEDICAL COMPARISON: No prior abdominal radiographs available for com paris. CENTER ([id number]) CLINICAL INDICATIONS: NG Placement FINDINGS: Tubes: An enteric tube overlies the prox imal stomach with the side-port at the GE junction. The pelvis is not imaged. There is mild gaseous dilatation of the colon. No dilated small bowel loops are seen. No o bvious free air is identified. Osseous structures are intact. IMPRESSION IMPRESSION: Side port of the enteric tube is at the GE junct ion. Recommend advancement of 5 to 7 cm. 7 :08 PM Ao peak carter 1.24 m/s 03-25-2020 [facility] ([id number]) Ascending aorta 3.42 cm 03-25-2020 [facility] ([id number]) AV LVOT peak 3 mmHg 03-25-2020 [facility] ([id number]) AV peak gradient 6 mmHG 03-25-2020 [facility] ([id number]) AV Velocity Ratio 0.67 03-25-2020 O DAWSON [facility] ([facility]) LINH (continuity 2.76 cm2 03-25-2020 [facility] DI (Vmax) 0.67 03-25-2020 [facility] ([facility]) E/A ratio 1.59 03-25-2020 [facility] ([facility]) FS 38 28 - 44 % 03-25-2020 [facility] ([facility]) Interpretation and Abnormal 03-25-2020 [facility] review of MEDICAL laboratory results C ENTER ([facility]) IVS 1.13 0.6 - cm Abnormal 03-25-[address] ([facility]) LV mass 166.51 g 03-25-2020 [facility] ([facility]) LV RWT 0.60 03-25-2020 [facility] ([facility]) LVIDD 4.10 4 - 100 cm 03-25-2020 [facility] ([facility]) LVIDS 2.53 2.1 - 4 cm 03-25-2020 [facility] ([facility]) LVOT area 4.12 cm2 03-25-2020 [facility] ([facility]) LVOT diameter 2.29 cm 03-25-2020 [facility] ([facility]) LVOT peak carter 0.83 m/s 03-25-2020 [facility] MV Peak A Carter 0.69 m/s 03-25-2020 [facility]) MV Peak E Carter 1.10 m/s 03-25-2020 [facility]) MV peak gradient 5 mmHg 03-25-2020 [facility] ([facility]) MV stenosis 64.80 ms 03-25-2020 [facility] pressure 1/2 time [facility] ([facility]) MV valve area p 1/2 3.40 cm2 [facility] PV peak gradient 2 mmHg 03-25-2020 [facility] ([id number]) PV PK CARTER 0.79 m/s 03-25-2020 [facility] ([id number]) PW 1.22 0.6 - cm Abnormal 03-25-2020 [facility] 1.1 [facility] ([facility]) RVOT peak gradient 1 mmHg 03-25-2020 [facility] ([id number][facility] RVOT peak carter 0.52 m/s 03-25-2020 [facility] ([facility]) Sinus 3.30 cm 03-25-2020 [facility] STJ 3.40 cm 03-25-2020 [facility]) Poor image quality. 03-25-2020 [facility] Normal LV size and function, EF 60%. MEDICAL Normal RV size and function. CENTER No hemodynamically significant valve disease. ([id number]) Negative contrast study for a cardiac shunt. IMPRESSION: Acute 03-25-2020 O DAWSON [facility] infarct in the right MEDICAL basal ganglia and CE NTER internal capsule, ([id number]) without hemorrhage or mass effect. Extensive cystic encephalomalacia throughout the left frontal and parietal lobes with ex vacuo dilation of left lateral ventricle. Hemosiderin staining within the encephalomalacia is consistent with remote hemorrhagic change. There is also encephalomalacia in the right parietal lobe to a lesser extent. : MRI BRAIN WITH 03-25-20 [facility] AND WITHOUT CONTRAST, MEDICAL 03/25/2020 00:06 AM CENTER COMPARISON: Head CT ([facility]) March 21, 2020. CLINICAL INDICATIONS: 64 years Male altered mental status; eval new focal hypointensity in R BG; RELEVANT CLINICAL HISTORY: TECHNIQUE: A series of multisequence, multiplanar images of the brain are obtained both before and after intravenous administration of gadolinium-based contrast using standard protocol. CONTRAST: gadoterate Meglumine (DOTAREM) 5 MMOL/10ML injection 3-60 mL; Route of Administration: Intravenous; Dose: 19 mL. FINDINGS: There is restricted diffusion and FLAIR hyperintensity within the right basal ganglia including the thalamus and caudate nucleus as well as the internal capsule consistent with an acute infarct in the right lateral lenticulostriate vascular territory. There is no significant mass effect or hemorrhagic transformation. There is also a large area of cystic encephalomalacia and surrounding gliosis throughout the left frontal and parietal lobes with ex vacuo dilation of the left lateral ventricle. Hemosiderin staining in the encephalomalacia is consistent with sequela of remote hemorrhage. Wallerian degeneration involving the left thalamus, cerebral peduncle and left aspect of the brainstem is noted. In the right hemisphere there is encephalomalacia within the medial parietal lobe as well. There is otherwise periventricular FLAIR hyperintensity which is nonspecific although may be due to chronic small vessel ischemic change. No contrast-enhancing lesions are seen within the brain. Left lateral ventricle is markedly dilated due to ex vacuo enlargement and its lateral brain volume loss as described. There is no evidence for acute hydrocephalus. No extracerebral fluid collections are seen. Bilateral mastoid effusions are noted. User, Interfaces - 0 1:22 PM EDT EXAM: MRI BRAIN WITH AND WITHOUT CONTRAST, 03/25/2020 00:06 AM 03-25-2020 [facility] MEDICAL COMPARISON: Head CT March 21, 2020. [facility] ([id number]) CLINICAL INDICATIONS: 64 years Male altered mental status; e miki new focal hypointensity in R BG; RELEVANT CLINICAL HISTORY: TECHNIQUE: A series of multisequence, multiplanar images of the brain are obtained both before and after intravenous admin istration of gadolinium-based contrast using standard protocol. CONTRAST: gadoterate Meglumine (DOTAREM) 5 MMOL/10ML injection 3-60 mL ; Route of Administration: Intravenous; Dose: 19 mL. FINDINGS: There is restricted diffusion and FLAIR hyperint ensity within the right basal ganglia including the thalamus and caudate nucleus as well a s the internal capsule consistent with an acute infarct in the right lateral lenticulostriate vascular territory. There is no significant mass effect or h emorrhagic transformation. There is also a large area of cystic encephaloma lacia and surrounding gliosis throughout the left frontal and parietal lobes with ex vacuo dilation of the left lateral ventricle. Hemosiderin staining in the encephal omalacia is consistent with sequela of remote hemorr davide. Wallerian degeneration involving the left thalamus, cerebral peduncle and left aspect of the brainstem is noted. In the right hemisphere there is encephalomalacia wit hin the medial parietal lobe as well. There is otherwis e periventricular FLAIR hyperintensity which is nonspecific although may be due to chronic small ve ssel ischemic change. No contrast-enhancing lesions are seen within the brain. Left lateral ventricle is markedly dilat ed due to ex vacuo enlargement and its lateral brain volume loss as described. There is no evidence for acute hydrocephalus. No extracerebral fluid collections are seen. Bilateral mastoid effusions are noted. IMPRESSION IMPRESSION: Acute infarct in the right basal ganglia and internal capsul e, without hemorrhage or mass effect. Extensive cystic encephalomalacia throughout the left fronta l and parietal lobes with ex vacuo dilation of left lateral ventricle . Hemosiderin staining within the encephalomalacia is consistent with remote hemorr hagic change. There is also encephalomalacia in the right hebert etal lobe to a lesser extent. Average glucose 114 mg/dL 03-25-2020 [facility] Estimated from MEDIC AL glycated hemoglobin CENTER mass conc (Bld) (432 [id number]) HbA1c (Bld) [Mass 5.6 4.7 - % 03-25-2020 [facility] fraction] 5.6 [facility] ([id number]) Cholesterol 191 <200 mg/dL 03-25-2020 [facility] [Mass/Vol] [facility] ([id number]) Comment: [<200 mg/dL: Desirable] [200-239 mg/dL: Borderline High] [>239 mg/dL: High] Cholesterol in HDL [Mass/Vol] 159 <130 mg/dL High 03-25-2020 [facility] ([id number]) Cholesterol in HDL [Mass/Vol] 32 >=40 mg/dL Low 03-25-2020 [facility] ([id number]) Comment: [<40 mg/dL: Low (High Risk) ] [>59 mg/dL: High (Low Risk) ] Cholesterol in LDL 126 0 - 99 mg/dL High 03-25-2020 [facility] [Mass/Vol] [facility] ([id number]) Comment: [<100 mg/dL: Optimal] [100-129 mg/dL: Near Eustace l] [130-159 mg/dL: Borderline High] [160-189 mg/dL: High] [>189 mg/dL: Very High] Cholesterol.total/Cholesterol in HDL 6.0 <4.5 Hig h 03-25-2020 [facility] [Mass ratio] [facility] ([id number]) Interpretation and review of Abnormal 0 03-25-2020 [facility] laboratory results [facility] ([facility]) Triglyceride [Mass/Vol] 166 <150 mg/dL High 2019 [facility] ([facility]) Comment: [<150 mg/dL: Desirable] [150-199 mg/dL: Borderline] [200-499 mg/dL: High] [>500 mg/dL: Very High] Interpretation and Abnormal 03-25-2020 [facility] review of laboratory MEDICAL results [facility] ([facility]) Lactate [Moles/Vol] 2.2 0.5 - 1.6 mmol/L High 03-25-2020 [facility] ([id number]) Anion gap [Moles/Vol] 13 7 - 17 mmol/L 03-25-20 20 [facility] ([facility]) Chloride [Moles/Vol] 106 98 - 108 mmol/L 0 [facility] ([id number]) CO2 [Moles/Vol] 23 22 - 30 mmol/L 03-25-2020 [facility] ([id number]) Creatinine [Mass/Vol] 0.93 0.7 - 1.3 mg/dL 03-25-20 [facility] ([id number]) GFR/1.73 sq >=60 >=60 mL/min/{ 03-25-2020 [facility]predicted MDRD mL/min/1. 1.73_m2} MED ICAL (S/P/Bld) [Vol 73sqM CENTE R rate/Area] ([id number]) Glucose [Mass/Vol] 121 70 - 99 mg/dL High 03-25-2020 [facility] ([facility]) Interpretation and Abnormal 03-25-2020 [facility] review of laboratory [facility] results [facility] ([facility]) Osmolality Calc 297 OTH - OTH 03-25-2020 [facility] [Osmolality] [facility] ([facility]) Potassium [Moles/Vol] 4.1 3.5 - 5 mmol/L 03-25-20 20 [facility] ([id number]) Sodium [Moles/Vol] 138 133 - 143 mmol/L 03-25-2020 [facility] ([facility]) Urea nitrogen 30 7 - 22 mg/dL High 03-25-2020 [facility] [Mass/Vol] [facility] ([facility]) Urea 32 mg/mg 03-25-2020 [facility] nitrogen/Creatinine MEDICAL [Mass ratio] [facility] ([facility]) Basophils (Bld) 0.04 0 - 0.09 K/uL 03-25-2020 [facility] [#/Vol] [facility] ([facility]) Basophils/100 WBC 0.3 % 03-25-2020 O [facility] (Bld) [facility] ([facility]) DIFF STATUS Electronic 03-25-2020 [facility] Differential [facility] ([facility]) Eosinophils (Bld) <0.04 0 - 0.48 10*3/uL 03-25-2020 O [facility]SON [facility] [#/Vol] [facility] ([facility]) Eosinophils/100 WBC 0.1 % 03-25-2020 [facility] (Bld) [facility] ([facility]) Erythrocyte 13.1 10.9 - % 03-25-2020 [facility] distribution width 14.3 M EDICAL (RBC) [Ratio] [facility] ([facility]) Hematocrit (Bld) 42.5 39.6 - % 03-25-2020 [facility] [Volume fraction] 48.8 ME DICAL [facility] ([facility]) Hemoglobin (Bld) 13.9 13.4 - g/dL 03-25-2020 [facility] [Mass/Vol] 16.8 [facility] ([facility]) Immature granulocytes 0.36 <=0.08 K/uL High 03-25-20 20 [facility] (Bld) [#/Vol] MEDICA L CENTER ([facility]) Immature 2.6 % 03-25-2020 [facility] granulocytes/100 WBC MEDICAL (Bld) [facility] ([facility]) Interpretation and Abnormal 03-25-2020 [facility] review of laboratory MEDICAL results [facility] ([facility]) Lymphocytes (Bld) 0.94 0.83 - K/uL 03-25-2020 O DA[facility]SON [facility] [#/Vol] 3.57 [facility] ([facility]) Lymphocytes/100 WBC 6.8 % 03-25-2020 [facility] (Bld) [facility] ([facility]) MCH (RBC) [Entitic 29.6 26.1 - pg 03-25-2020 [facility] mass] 33.3 [facility] ([facility]) MCHC (RBC) [Mass/Vol] 32.7 31.9 - g/dL 03-25-20 20 [facility] 36.5 [facility] ([facility]) MCV (RBC) [Entitic 90.6 79 - 94.5 fL 03-25-2020 [facility] vol] [facility] ([facility]) Monocytes (Bld) 0.64 0.24 - K/uL 03-25-2020 [facility] [#/Vol] 0.93 [facility] ([facility]) Monocytes/100 WBC 4.6 % 03-25-2020 [facility] (Bld) [facility] ([facility]) Neutrophils (Bld) 11.90 1.57 - K/uL High 03-25-2020 O [facility] [#/Vol] 6.19 [facility] ([facility]) Nucleated RBC/100 WBC 0.1 <=0.2 % 03-25-20 20 [facility] (Bld) [Ratio] /100 WBC MEDICA L [facility] ([facility]) Platelet mean volume 10.5 8.7 - fL 0 [facility] (Bld) [Entitic vol] 12.3 [facility] ([facility]) Platelets (Bld) 217 146 - 337 K/uL 03-25-2020 [facility] [#/Vol] [facility] ([facility]) RBC (Bld) [#/Vol] 4.69 OTH - OTH 10*6/uL 03-25-2020 O DA[facility]SON [facility] ([facility]) Segmented 85.6 % 03-25-2020 [facility] neutrophils/100 WBC [facility] (Bld) [facility] ([facility]) WBC (Bld) [#/Vol] 13.89 3.73 - K/uL High 03-25-2020 [facility] 10.1 [facility] ([facility]) us abdomen ruq/liver/gb on 2020-03-24 US ABDOMEN EXAM: US ABDOMEN RUQ/LIVER/GB, 03/24/2020 08:33 AM Normal 03-24-2020 [facility] RUQ/LIVER/GB CLINICAL INDICATIONS: AMS, concern for new liver disease [facility] COMPARISON: No prior studies available for comparison. Medical Center TECHNIQUE: Real-time ultrasound evaluation of the right uppe r quadrant was ([id number]) performed utilizing a curved array trans ducer. Duplex scan is performed. Color flow images and spectral waveforms obtained. FINDINGS: Limited by bowel gas shadowing. Pancreas: The subvisualized pancreas is sonographically normal in appe arance. Liver: Liver parenchyma demonstrates increased echogenicity and s ound attenuation, without definite evidence of contour nodularitie s. There is no evidence of an intrahepatic mass or biliary ductal dilation. Doppler ultrasound demonstrates hepatope alexandra flow in the main portal vein. Flow velocity is 27.5 cm/sec which is normal. Gall Bladder: The gallbladder is normally distended wi th no sludge or stones. Wall thickness is within normal limits. No pericholecystic fluid. The son ographic Daly's sign was reported as negative. The common duct i s normal in caliber measuring 4 mm in diameter. Right Kidney: Limited evaluation of the right kidney d emonstrates no hydronephrosis. Bipolar length is 11.9 cm. Ascites: There is no ascites in the visualized abdomen. IMPRESSION: Hepatic steatosis. No evidence of cirrhosis. No focal hepati c lesions. I personally viewed and interpreted these images and I have reviewed and approved this report. 9 :49 AM urine culture on 27-03-17 Bacteria identified Cx Nom No Growth Normal [facility] (U) [facility] ([id number]) Comment: Order Comment: Nails top vacu tainer. Urine must be to the fill line to process (4mls). If minimum v olume, send urine in a yellow top vacutainer tube. Performed By: #### CKB, C7ED , HFP, ACTMJ, SALIJ, CA, MGO, TSH #### [facility] (Dale DIAZ) [address] [place] [address] lactate, blood on 2 Lactate, Blood 2.1 0.5-1.6 mmol/L High 03-24-2020 [facility] ([id number]) Comment: Performed By: #### LACT #### [facility] (DEFAULT)[address] [place] [address] chem 7 (lytes,bun,crea,gluc) on 2020-03-24 Anion gap [Moles/Vol] 16 7-17 mmol/L Normal 03-24-20 20 [facility] ([id number]) Comment: Performed By: #### [id number] #### [facility] (DEFAULT)[address] [place] [address] Chloride [Moles/Vol] 107 98-108 mmol/L Normal 0 [facility] ([id number]) Comment: Performed By: #### [id number] #### [facility] (DEFAULT)[address] [place] [address] CO2 [Moles/Vol] 22 22-30 mmol/L Normal 03-24-2020 [facility] ([id number]) Comment: Performed By: #### [id number] #### [facility] (DEFAULT)[address] [place] [address] Creatinine [Mass/Vol] 1.10 0.70-1.30 mg/dL Normal 03-24-20 20 [facility] ([id number]) Comment: Performed By: #### [id number] #### [facility] (DEFAULT)[address] [place] [address] EST GFR, 60 >=60 mL/min/1.73sqM Normal 03-24-20 20 [facility] ([id number]) Comment: Performed By: #### [id number] #### [facility] (DEFAULT)[address] [place] [address] EST GFR,Non 60 >=60 mL/min/1.73sqM Normal 03-24 [facility] ([id number]) Comment: Performed By: #### [id number] #### [facility] (DEFAULT)[address] [place] [address] Glucose [Mass/Vol] 125 70-99 mg/dL High 03-24-2020 [facility] (47001) Comment: Performed By: #### [id number] #### [facility] (DEFAULT)[address] [place] [address] Osmolality [Osmolality] 301 278-305 mOsm/kg Normal 2019 [facility] (40415) Comment: Performed By: #### [id number] #### [facility] (DEFAULT)[address] [place] [address] Potassium [Moles/Vol] 4.1 3.5-5.0 mmol/L Normal 03-24-20 [facility] ([id number]) Comment: Performed By: #### [id number] #### [facility] (DEFAULT)[address] [place] [address] Sodium [Moles/Vol] 141 133-143 mmol/L Normal 03-24-2020 [facility] (21016) Comment: Performed By: #### [id number] #### [facility] (DEFAULT)[address] [place] [address] Urea nitrogen [Mass/Vol] 26 7-22 mg/dL High 03-24 [facility] (39474) Comment: Performed By: #### [id number] #### [facility] (DEFAULT)[address] [place] [address] Urea nitrogen/Creatinine [Mass 24 mg/mg Normal 03-24-2020 [facility] ratio] [facility] (99203) Comment: Performed By: #### [id number] #### [facility] (DEFAULT)[address] [place] [address] cbc and electronic diff on 2020-03-24 Basophils (Bld) [#/Vol] 0.04 0.00-0.09 K/uL Normal 2019 [facility] ([id number]) Comment: Performed By: #### [id number] ## ##[facility] (DEFAULT)[address] [place] [address] Basophils/100 WBC (Bld) 0.2 % Normal 2019 [facility] (77753) Comment: Performed By: #### [id number] ## ##[facility] (DEFAULT)[address] [place] [address] DIFF STATUS Electronic Differential Normal 03-08 [facility] ([id number]) Comment: Performed By: #### [id number] ## ##[facility] (DEFAULT)[address] [place] [address] Eosinophils (Bld) 0.04 0.00-0.48 K/uL Normal 03-24-2020 [facility] [#/Vol] [facility] ([id number]) Comment: Performed By: #### [id number] ## ##[facility] (DEFAULT)[address] [place] [address] Eosinophils/100 WBC (Bld) 0.1 % Normal 03-08 [facility] (65036) Comment: Performed By: #### [id number] ## ##[facility] (DEFAULT)[address] [place] [address] Hematocrit (Bld) [Volume 41.7 39.6-48.8 % Normal 03-24 [facility] fraction] [facility] (44738) Comment: Performed By: #### [id number] ## ##[facility] (DEFAULT)[address] [place] [address] Hemoglobin (Bld) 13.4 13.4-16.8 g/dL Normal 03-24-2020 [facility] [Mass/Vol] [facility] (62144) Comment: Performed By: #### [id number] ## ##[facility] (DEFAULT)[address] [place] [address] Immature Grans % 2.2 % Normal 03-24-2020 [facility] (00 000) Comment: Performed By: #### [id number] ## ##[facility] (DEFAULT)[address] [place] [address] Immature Grans Absolute 0.37 <=0.08 K/uL High 2019 [facility] (03703) Comment: Performed By: #### [id number] ## ##[facility] (DEFAULT)[address] [place] [address] Lymphocytes (Bld) 0.86 0.83-3.57 K/uL Normal 03-24-2020 [facility] [#/Vol] [facility] (78124) Comment: Performed By: #### [id number] ## ##[facility] (DEFAULT)[address] [place] [address] Lymphocytes/100 WBC (Bld) 5.1 % Normal 03-08 [facility] (10244) Comment: Performed By: #### [id number] ## ##[facility] [facility] (DEFAULT)[address] [place] [address] 44306 MCV (RBC) [Entitic vol] 90.7 79.0-94.5 fL Normal 2019 [facility] ([id number]) Comment: Performed By: #### [id number] ## ##[facility] (DEFAULT)[address] [place] [address] 85359 Mean Cell Hgb 29.1 26.1-33.3 pg Normal 03-24-2020 [facility] nter (69752) Comment: Performed By: #### [id number] ## ##[facility] (DEFAULT)[address] [place] [address] 35990 Mean Cell Hgb Conc 32.1 31.9-36.5 g/dL Normal 03-24-2020 [facility] nter (46066) Comment: Performed By: #### [id number] ## ##[facility] (DEFAULT)[address] [place] [address] Monocytes (Bld) [#/Vol] 0.78 0.24-0.93 K/uL Normal 2019 [facility] (67975) Comment: Performed By: #### [id number] ## ##[facility] (DEFAULT)[address] [place] [facility] [facility] [place] [address] Monocytes/100 WBC (Bld) 4.6 % Normal 2019 [facility] (83871) Comment: Performed By: #### [id number] ## ##[facility] (DEFAULT)[address] [place] [address] Nucleated RBC (Bld) 0.0 <=0.2 /100 WBC Normal 03-24-2020 [facility] [#/Vol] [facility] (04223) Comment: Performed By: #### [id number] ## ##[facility] (DEFAULT)[address] [place] [address] Platelet mean volume 10.6 8.7-12.3 fL Normal 0 [facility] (Bld) [Entitic vol] [facility] (29434) Comment: Performed By: #### [id number] ## ##[facility] (DEFAULT)[address] [place] [address] Platelets (Bld) [#/Vol] 253 146-337 K/uL Normal 2019 [facility] (16169) Comment: Performed By: #### [id number] ## ##[facility] (DEFAULT)[address] [place] [address] RBC (Bld) [#/Vol] 4.60 4.38-5.83 M/uL Normal 03-24-2020 O [facility] nter (67781) Comment: Performed By: #### [id number] ## ##[facility] (DEFAULT)[address] [place] [address] RBC (Bld) [#/Vol] 13.2 10.9-14.3 % Normal 03-24-2020 O [facility] Ce nter (74453) Comment: Performed By: #### [id number] ## ##[facility] (DEFAULT)[address] [place] [address] Segs + Bands Auto 87.8 % Normal 03-24-2020 [facility] (00 000) Comment: Performed By: #### [id number] ## ##[facility] (DEFAULT)[address] [place] [address] Segs + Bands,Absolute Auto 14.87 1.57-6.19 K/uL High [facility] (51209) Comment: Performed By: #### [id number] ## ##U [facility] (DEFAULT)[address] [place] [address] 04528 WBC (Bld) [#/Vol] 16.92 3.73-10.10 K/uL High 03-24-2020 [facility] Ce nter (87870) Comment: Performed By: #### [id number] ## ##[facility] (DEFAULT)[address] [place] [address] 45424 ammonia on Ammonia (P) [Mass/Vol] 71 6-47 umol/L High 03-24- 020 [facility] nter ([id number]) Comment: Performed By: #### [id number] #### [facility] (DEFAULT)[address] [place] [address] 77204 No panel information on 2020-03-24 User, Interfaces - 0 9:52 AM EDT EXAM: US ABDOMEN RUQ/LIVER/GB, 03/24/2020 08:33 AM 03-24-2020 [facility] CLINICAL INDICATIONS: AMS, concern for new liver disease CENTER ([id number]) COMPARISON: No prior studies available for comparison. TECHNIQUE: Real-time ultrasound evaluation of the right uppe r quadrant was performed utilizing a curved array trans ducer. Duplex scan is performed. Color flow images and spectral waveforms obtained. FINDINGS: Limited by bowel gas shadowing. Pancreas: The subvisualized pancreas is sonographically normal in appe arance. Liver: Liver parenchyma demonstrates increased echogenicity and s ound attenuation, without definite evidence of contour nodularitie s. There is no evidence of an intrahepatic mass or biliary ductal dilation. Doppler ultrasound demonstrates hepatope alexandra flow in the main portal vein. Flow velocity is 27.5 cm/sec which is normal. Gall Bladder: The gallbladder is normally distended wi th no sludge or stones. Wall thickness is within normal limits. No pericholecystic fluid. The son ographic Daly's sign was reported as negative. The common duct i s normal in caliber measuring 4 mm in diameter. Right Kidney: Limited evaluation of the right kidney d emonstrates no hydronephrosis. Bipolar length is 11.9 cm. Ascites: There is no ascites in the visualized abdomen. IMPRESSION IMPRESSION: Hepatic steatosis. No evidence of cirrhosis. No focal hepati c lesions. I personally viewed and interpreted these images and I have reviewed and approved this report. 9 :49 AM IMPRESSION: Hepatic 03-24-2020 [facility] steatosis. No MEDICA L evidence of CENTER cirrhosis. No focal (60686) hepatic lesions. I personally viewed and interpreted these images and I have reviewed and approved this report. : US ABDOMEN 03-24-2020 [facility] RUQ/LIVER/GB, MEDICA L 03/24/2020 08:33 AM CENTER CLINICAL INDICATIONS: ([id number]) AMS, concern for new liver disease COMPARISON: No prior studies available for comparison. TECHNIQUE: Real-time ultrasound evaluation of the right upper quadrant was performed utilizing a curved array transducer. Duplex scan is performed. Color flow images and spectral waveforms obtained. FINDINGS: Limited by bowel gas shadowing. Pancreas: The subvisualized pancreas is sonographically normal in appearance. Liver: Liver parenchyma demonstrates increased echogenicity and sound attenuation, without definite evidence of contour nodularities. There is no evidence of an intrahepatic mass or biliary ductal dilation. Doppler ultrasound demonstrates hepatopetal flow in the main portal vein. Flow velocity is 27.5 cm/sec which is normal. Gall Bladder: The gallbladder is normally distended with no sludge or stones. Wall thickness is within normal limits. No pericholecystic fluid. The sonographic Daly's sign was reported as negative. The common duct is normal in caliber measuring 4 mm in diameter. Right Kidney: Limited evaluation of the right kidney demonstrates no hydronephrosis. Bipolar length is 11.9 cm. Ascites: There is no ascites in the visualized abdomen. Ammonia (P) 71 6 - 47 umol/L High 03-24-2020 [facility] [Mass/Vol] [facility] ([id number]) Interpretation and Abnormal 03-24-2020 [facility] review of laboratory [facility] results [facility] ([id number]) Interpretation and Abnormal 03-24-2020 [facility] review of laboratory [facility] results [facility] (45081) Lactate [Moles/Vol] 2.1 0.5 - 1.6 mmol/L High 03-24-2020 [facility] (41852) Anion gap 16 7 - 17 mmol/L 03-24-[facility]/Vol[facility] (83839) Chloride [Moles/Vol] 107 98 - 108 mmol/L 0 [facility] (67404) CO2 [Moles/Vol] 22 22 - 30 mmol/L 03-24-2020 [facility] (31038) Creatinine 1.10 0.7 - 1.3 mg/dL 03-24-2020 [facility] [Mass/Vol] [facility] ([id number]) GFR/1.73 sq >=60 >=60 mL/min/ 03-24-2020 [facility] NER M.predicted MDRD mL/min/1. {1.73_m MED ICAL (S/P/Bld) [Vol 73sqM 2} CENTE R rate/Area] (17574) Glucose [Mass/Vol] 125 70 - 99 mg/dL High 03-24-2020 [facility] (54149) Interpretation and Abnormal 03-24-2020 [facility] review of laboratory [facility] results [facility] ([id number]) Osmolality Calc 301 OTH - OTH 03-24-2020 [facility] [Osmolality] [facility] (03533) Potassium 4.1 3.5 - 5 mmol/L 03-24-2020 [facility] [Moles/Vol] [facility] ([facility]) Sodium [Moles/Vol] 141 133 - 143 mmol/L 03-24-2020 [facility] ([facility]) Urea nitrogen 26 7 - 22 mg/dL High 03-24-2020 [facility] [Mass/Vol] [facility] ([facility]) Urea 24 mg/mg 03-24-2020 [facility] nitrogen/Creatinine MEDICAL [Mass ratio] [facility] ([facility]) Basophils (Bld) <0.04 0 - 0.09 10*3/uL 03-24-2020 [facility] [#/Vol] [facility] ([facility]) Basophils/100 WBC 0.2 % 03-24-2020 [facility] (Bld) [facility] ([facility]) DIFF STATUS Electronic 03-24-2020 [facility] Differential [facility] ([facility]) Eosinophils (Bld) <0.04 0 - 0.48 10*3/uL 03-24-2020 [facility] [#/Vol] [facility] ([facility]) Eosinophils/100 WBC 0.1 % 03-24-2020 [facility] (Bld) [facility] ([facility]) Erythrocyte 13.2 10.9 - % 03-24-2020 [facility] distribution width 14.3 M EDICAL (RBC) [Ratio] [facility] ([facility]) Hematocrit (Bld) 41.7 39.6 - % 03-24-2020 [facility] [Volume fraction] 48.8 ME DICAL [facility] ([facility]) Hemoglobin (Bld) 13.4 13.4 - g/dL 03-24-2020 [facility] [Mass/Vol] 16.8 [facility] ([facility]) Immature 0.37 <=0.08 K/uL High 03-24-2020 [facility] granulocytes (Bld) M EDICAL [#/Vol] [facility] ([facility]) Immature 2.2 % 03-24-2020 [facility] granulocytes/100 WBC MEDICAL (Bld) [facility] ([facility]) Interpretation and Abnormal 03-24-2020 [facility] review of laboratory MEDICAL results [facility] ([facility]) Lymphocytes (Bld) 0.86 0.83 - K/uL 03-24-2020 [facility] [#/Vol] 3.57 [facility] ([facility]) Lymphocytes/100 WBC 5.1 % 03-24-2020 [facility] (Bld) [facility] ([facility]) MCH (RBC) [Entitic 29.1 26.1 - pg 03-24-2020 [facility] mass] 33.3 [facility] ([facility]) MCHC (RBC) 32.1 31.9 - g/dL 03-24-2020 [facility] [Mass/Vol] 36.5 [facility] ([facility]) MCV (RBC) [Entitic 90.7 79 - 94.5 fL 03-24-2020 [facility] vol] [facility] ([facility]) Monocytes (Bld) 0.78 0.24 - K/uL 03-24-2020 [facility] [#/Vol] 0.93 [facility] ([facility]) Monocytes/100 WBC 4.6 % 03-24-2020 [facility] (Bld) [facility] ([facility]) Neutrophils (Bld) 14.87 1.57 - K/uL High 03-24-2020 [facility] [#/Vol] 6.19 [facility] ([facility]) Nucleated RBC/100 0.0 <=0.2 % 03-24-2020 [facility] WBC (Bld) [Ratio] /100 [facility]) Platelet mean volume 10.6 8.7 - fL 0 [facility] (Bld) [Entitic vol] 12.3 [facility] ([facility]) Platelets (Bld) 253 146 - 337 K/uL 03-24-2020 [facility] [#/Vol] [facility] ([facility]) RBC (Bld) [#/Vol] 4.60 OTH - OTH 10*6/uL 03-24-2020 [facility] ([facility]) Segmented 87.8 % 03-24-2020 [facility] neutrophils/100 WBC [facility] (Bld) [facility] ([facility]) WBC (Bld) [#/Vol] 16.92 3.73 - K/uL High 03-24-2020 [facility] 10.1 [facility] ([facility]) vancomycin level, trough (pre drug level ) on 2020-03-23 Vancomycin, Trough 18.0 Therapeutic Range: mcg/mL Normal [facility] 10.0-20.0 mcg/mL [facility] nter ([id number]) Comment: Order Comment: Please draw slava kuhn at specified interval PRIOR to next dose. Result Comment: Peak 20-40 u g/mL Trough 10-20 ug/mL Performed By: #### VANCTR ## ##[facility] (DEFAULT)[address] [place] [address] 55836 lactate, blood on 2 Lactate, Blood 2.9 0.5-1.6 mmol/L High 03-23-2020 [facility] nter (47531) Comment: Performed By: #### LACT #### [facility] (DEFAULT)[address] [place] [address] 91624 chem 7 (lytes,bun,crea,gluc) on 2020-03-23 Anion gap [Moles/Vol] 14 7-17 mmol/L Normal 03-23-20 20 [facility] nter (38660) Comment: Performed By: #### PTISTR, P TT #### [facility] ([facility]) [address] [place] [address] 00085 Chloride [Moles/Vol] 108 98-108 mmol/L Normal 0 [facility] nter (90576) Comment: Performed By: #### PTISTR, P TT #### [facility] ([facility]) [address] [place] [address] 16902 CO2 [Moles/Vol] 21 22-30 mmol/L Low 03-23-2020 [facility] (00 000) Comment: Performed By: #### PTISTR, P TT #### [facility] ([facility]) [address] [place] [address] 99754 Creatinine [Mass/Vol] 1.08 0.70-1.30 mg/dL Normal 03-23-20 20 [facility] (20623) Comment: Performed By: #### PTISTR, P TT #### [facility] ([facility]) [address] [place] [address] 06096 EST GFR, 60 >=60 mL/min/1.73sqM Normal 03-23-20 [facility] (74954) Comment: Performed By: #### PTISTR, P TT #### [facility] ([facility]) [address] [place] [address] 93265 EST GFR,Non 60 >=60 mL/min/1.73sqM Normal 03-23 [facility] (81504) Comment: Performed By: #### PTISTR, P TT #### [facility] ([facility]) [address] [place] [address] 77552 Glucose [Mass/Vol] 121 70-99 mg/dL High 03-23-2020 [facility] nter (53457) Comment: Performed By: #### PTISTR, P TT #### [facility] ([facility]) [address] [place] [address] 24175 Osmolality [Osmolality] 296 278-305 mOsm/kg Normal 2019 [facility] (73435) Comment: Performed By: #### PTISTR, P TT #### [facility] ([facility]) [address] [place] [address] 94277 Potassium [Moles/Vol] 4.4 3.5-5.0 mmol/L Normal 03-23-20 20 [facility] (49492) Comment: Performed By: #### PTISTR, P TT #### [facility] ([facility]) [address] [place] [address] 19217 Sodium [Moles/Vol] 139 133-143 mmol/L Normal 03-23-2020 [facility] nter (79029) Comment: Performed By: #### PTISTR, P TT #### [facility] ([facility]) [address] [place] [address] 24881 Urea nitrogen [Mass/Vol] 20 7-22 mg/dL Normal 03-23 [facility] nter (02728) Comment: Performed By: #### PTISTR, P TT #### [facility] ([facility]) [address] [place] [address] 86443 Urea nitrogen/Creatinine [Mass 19 mg/mg Normal 03-23-2020 [facility] ratio] [facility] (33369) Comment: Performed By: #### PTISTR, P TT #### [facility] ([facility]) [address] [place] [address] 54525 cbc and electronic diff on 2020-03-23 Basophils (Bld) [#/Vol] 0.04 0.00-0.09 K/uL Normal 2019 [facility] (38156) Comment: Performed By: #### PTISTR, P TT #### [facility] ([facility]) [address] [place] [address] 36661 Basophils/100 WBC (Bld) 0.1 % Normal 2019 [facility] nter (55048) Comment: Performed By: #### PTISTR, P TT #### [facility] ([facility]) [address] [place] [address] 59817 DIFF STATUS Electronic Differential Normal 03-08 [facility] (97116) Comment: Performed By: #### PTISTR, P TT #### [facility] ([facility]) [address] [place] [address] 87709 Eosinophils (Bld) 0.04 0.00-0.48 K/uL Normal 03-23-2020 [facility] [#/Vol] [facility] (43849) Comment: Performed By: #### PTISTR, P TT #### [facility] ([facility]) [address] [place] [address] 36938 Eosinophils/100 WBC (Bld) 0.0 % Normal 03-08 [facility] nter (68602) Comment: Performed By: #### PTISTR, P TT #### [facility] ([facility]) [address] [place] [address] 58469 Hematocrit (Bld) [Volume 40.2 39.6-48.8 % Normal 03-23 [facility] fraction] [facility] (42276) Comment: Performed By: #### PTISTR, P TT #### [facility] ([facility]) [address] [place] [address] 50178 Hemoglobin (Bld) 13.2 13.4-16.8 g/dL Low 03-23-2020 [facility] [Mass/Vol] [facility] (76586) Comment: Performed By: #### PTISTR, P TT #### [facility] ([facility]) [address] [place] [address] 57688 Immature Grans % 1.3 % Normal 03-23-2020 [facility] (00 000) Comment: Performed By: #### PTISTR, P TT #### [facility] ([facility]) [address] [place] [address] 33520 Immature Grans Absolute 0.28 <=0.08 K/uL High 2019 [facility] (19287) Comment: Performed By: #### PTISTR, P TT #### [facility] ([facility]) [address] [place] [address] 29828 Lymphocytes (Bld) 1.01 0.83-3.57 K/uL Normal 03-23-2020 [facility] [#/Vol] [facility] (95357) Comment: Performed By: #### PTISTR, P TT #### [facility] ([facility]) [address] [place] [address] 77377 Lymphocytes/100 WBC (Bld) 4.9 % Normal 03-08 [facility] nter (18088) Comment: Performed By: #### PTISTR, P TT #### [facility] ([facility]) [address] [place] [address] 28441 MCV (RBC) [Entitic vol] 90.1 79.0-94.5 fL Normal 2019 [facility] (35684) Comment: Performed By: #### PTISTR, P TT #### [facility] ([facility]) [address] [place] [address] 26820 Mean Cell Hgb 29.6 26.1-33.3 pg Normal 03-23-2020 [facility] nter (07455) Comment: Performed By: #### PTISTR, P TT #### [facility] ([facility]) [address] [place] [address] 80254 Mean Cell Hgb Conc 32.8 31.9-36.5 g/dL Normal 03-23-2020 [facility] nter (75049) Comment: Performed By: #### PTISTR, P TT #### [facility] ([facility]) [address] [place] [address] 15504 Monocytes (Bld) [#/Vol] 0.86 0.24-0.93 K/uL Normal 2019 [facility] (73384) Comment: Performed By: #### PTISTR, P TT #### [facility] ([facility]) [address] [place] [address] 08334 Monocytes/100 WBC (Bld) 4.1 % Normal 2019 [facility] nter (78153) Comment: Performed By: #### PTISTR, P TT #### [facility] ([facility]) [address] [place] [address] 71940 Nucleated RBC (Bld) 0.0 <=0.2 /100 WBC Normal 03-23-2020 [facility] [#/Vol] [facility] (65724) Comment: Performed By: #### PTISTR, P TT #### [facility] ([facility]) [address] [place] [address] 32718 Platelet mean volume 10.5 8.7-12.3 fL Normal 0 [facility] (Bld) [Entitic vol] [facility] (63036) Comment: Performed By: #### PTISTR, P TT #### [facility] ([facility]) [address] [place] [address] 75648 Platelets (Bld) [#/Vol] 247 146-337 K/uL Normal 2019 [facility] (48268) Comment: Performed By: #### PTISTR, P TT #### [facility] ([facility]) [address] [place] [address] 22209 RBC (Bld) [#/Vol] 4.46 4.38-5.83 M/uL Normal 03-23-2020 [facility] nter (50087) Comment: Performed By: #### PTISTR, P TT #### [facility] ([facility]) [address] [place] [address] 44518 RBC (Bld) [#/Vol] 13.2 10.9-14.3 % Normal 03-23-2020 [facility] nter (83999) Comment: Performed By: #### PTISTR, P TT #### [facility] ([facility]) [address] [place] [address] 49145 Segs + Bands Auto 89.6 % Normal 03-23-2020 [facility] (00 000) Comment: Performed By: #### PTISTR, P TT #### [facility] ([facility]) [address] [place] [address] 51969 Segs + Bands,Absolute Auto 18.61 1.57-6.19 K/uL High [facility] (28696) Comment: Performed By: #### PTISTR, P TT #### [facility] ([facility]) [address] [place] [address] 76250 WBC (Bld) [#/Vol] 20.78 3.73-10.10 K/uL High 03-23-2020 [facility] (22084) Comment: Performed By: #### PTISTR, P TT #### [facility] ([facility]) [address] [place] [address] carboxyhemoglobin o n 2020-03-23 Carboxy-Hgb 6.8 0.5-1.5 % High 03-23-2020 [facility] (30971) Comment: Order Comment: This test can only be run at [facility] Main clinical laboratory. For a carboxyhemoglobin test at [facility], the CO-OXIMETRY (RT) test must be ordered. Performed By: #### COHGB ### #[facility] (DEFAULT)[address] [place] [address] No panel information on 2020-03-23 Rick Hodgson MD - 2019 5:58 PM EDT Long-Term video- EEG Summary Report: 03-23-2020 [facility] REFERRING PHYSICIAN: Goldy Gonzalez MD [facility] ([id number]) DATE AND TIME START OF RECORDIN03/22/2020, 1147 DATE AND TIME END OF RECORDIN03/23/2020, 0953, HISTORY: 64 year old male wi th a hx of CVA with residual RT sided weakness who presents with AMS concerning for subclinical seizures. MEDICATIONS: Acyclovir (ZOVIRAX) IVPB, 10 mg/kg (Order-Speci fic), Q8HNS Ampicillin IVPB, 2 g, Q4HNS cefTRIAXone (ROCEPHIN) IVPB, 2 g, Q12HNS dexamethasone, 10 mg, Q6H levETIRAcetam (KEPPRA) IVPB, 500 mg, BID lidocaine, 5 mL, Once Vancomycin (VANCOCIN) IVPB, 20 mg/kg (Order-Specific), Q12HN S TECHNICAL DESCRIPTION: A 21- channel continuous digital video EEG recording using the International 10-20 system. EEG technologists reviewed the recording and marked suspected abnormalities and selected segments including represent ative samples of states and provocative testing. The marked and selected segments as well as a substantial amount of sleep recording were reviewed by the EEG attending. Compu terized spike and event dete ction was used and these detections were reviewed in detail. All event button presses were reviewed including those reported by patients, family and staff. DESCRIPTION: The patient is noted by the mammography technologist to follow some commands and is unable to move her right side. Background: During maximal arousal the b ackground consisted of a 15-30 uV, 10 Hz posterior rhythm that was best developed over the right hemisphere. Over the left hemisphere there was a subtle increase in theta kolton quencies compared to the rig ht hemisphere. With drowsiness there was increased slowing into the delta range over the left hemisphere. Sleeping background: none apparent Focal Asymmetry: left hemisphere slowing Variability: yes Reactivity: yes Rhythmic or Periodic Patterns: none Potentially epileptogenic abnormalities: none Electrographic or electroclinical seizures: none Other Clinical Events: none IMPRESSION: Abnormal video-E EG recording demonstrating slowing over the left hemisphere. No seizures were captured CLINICAL CORRELATION: This s tudy suggests the presence of a functional or an anatomical lesion in the left hemisphere and would correlate well with the known history and examination. However, there was nothing in the recording to suggest a seizure disorder. Rick Hodgson MD EEG Attending Interpretation and Normal 03-23-2020 [facility] review of MEDICAL laboratory results [facility] ([id number]) Vancomycin trough 18.0 Therapeutic ug/m 03-23-2020 [facility] [Mass/Vol] Range: 10.0-20.0 L ME DICAL mcg/mL mcg/mL CENTER ([id number]) Comment: Peak 20-40 ug/mL Trough 10-20 ug/mL Basophils/100 WBC 0 % 03-23-2020 [facility] Manual cnt (CSF) [facility] ([id number]) Cells Counted Total 80 03-23-2020 [facility] (CSF) [#] [facility] ([id number]) Eosinophils/100 WBC 0 % 03-23-2020 [facility] Manual cnt (CSF) [facility] ([id number]) Lymphocytes/100 WBC 65 40 - 80 % 03-23-2020 [facility] Manual cnt (CSF) [facility] ([id number]) Monocytes+Macrophages/ 35 15 - 45 % 020 [facility] 100 WBC (CSF) [facility] ([id number]) Neutrophils/100 WBC 0 <=6 % 03-23-2020 [facility] Manual cnt (CSF) [facility] ([id number]) Pathologist review Charles Lynch MD 03-23-2020 [facility] (Unsp spec) [Interp] [facility] (06102) Pathology report There is no evidence of an inflammatory response. 03-23-2020 [facility] comments MEDICAL [Interpretation] [address] Narrative ([id number]) Tube number of CSF TUBE 4 03-23-2020 [facility] Cerebral spinal fluid [facility] ([id number]) Cryptococcus sp Ag Ql Negative Negative 03-23-20 [facility] (CSF) [facility] ([id number]) Interpretation and Normal 03-23-2020 [facility] review of laboratory [facility] results [facility] ([facility]) Interpretation and Abnormal 03-23-2020 [facility] review of laboratory [facility] results [place] ([facility]) Lactate [Moles/Vol] 2.9 0.5 - 1.6 mmol/L High 03-23-2020 [facility] ([facility]) Carboxyhemoglobin 6.8 0.5 - 1.5 % High 03-23-2020 [facility] (Bld) [Mass fraction] [facility] ([facility]) Interpretation and Abnormal 03-23-2020 [facility] review of laboratory [facility] results [place] ([id number]) Anion gap [Moles/Vol] 14 7 - 17 mmol/L 03-23-20 20 [facility] ([id number]) Chloride [Moles/Vol] 108 98 - 108 mmol/L 0 [facility] ([id number]) CO2 [Moles/Vol] 21 22 - 30 mmol/L Low 03-23-2020 [facility] ([id number]) Creatinine [Mass/Vol] 1.08 0.7 - 1.3 mg/dL 03-23-20 20 [facility] ([id number]) GFR/1.73 sq >=60 >=60 mL/min 03-23-2020 [facility] NER M.predicted MDRD mL/min/1.73sq /{1.73 MEDICAL (S/P/Bld) [Vol M _m2} CENTE R rate/Area] ([id number]) Glucose [Mass/Vol] 121 70 - 99 mg/dL High 03-23-2020 [facility] ([facility]) Interpretation and Abnormal 03-23-2020 [facility] review of laboratory [facility] results [place] ([facility]) Osmolality Calc 296 OTH - OTH 03-23-2020 [facility] [Osmolality] [facility] ([facility]) Potassium [Moles/Vol] 4.4 3.5 - 5 mmol/L 03-23-20 20 [facility] ([facility]) Sodium [Moles/Vol] 139 133 - 143 mmol/L 03-23-2020 [facility] ([facility]) Urea nitrogen 20 7 - 22 mg/dL 03-23-2020 [facility] [Mass/Vol] [facility] ([facility]) Urea 19 mg/mg 03-23-2020 [facility] nitrogen/Creatinine MEDICAL [Mass ratio] [facility] ([facility]) Basophils (Bld) <0.04 0 - 0.09 10*3/u 03-23-2020 [facility] [#/Vol] L [facility] ([facility]) Basophils/100 WBC 0.1 % 03-23-2020 [facility] (Bld) [facility] ([facility]) DIFF STATUS Electronic 03-23-2020 [facility] Differential [facility] ([facility]) Eosinophils (Bld) <0.04 0 - 0.48 10*3/u 03-23-2020 [facility] [#/Vol] L [facility] ([facility]) Eosinophils/100 WBC 0.0 % 03-23-2020 [facility] (Bld) [facility] ([facility]) Erythrocyte 13.2 10.9 - 14.3 % 03-23-2020 [facility] distribution width M EDICAL (RBC) [Ratio] [facility] ([facility]) Hematocrit (Bld) 40.2 39.6 - 48.8 % 03-23-2020 [facility] [Volume fraction] ME DICAL [facility] ([facility]) Hemoglobin (Bld) 13.2 13.4 - 16.8 g/dL Low 03-23-2020 [facility] [Mass/Vol] [facility] ([facility]) Immature granulocytes 0.28 <=0.08 K/uL High 03-23-20 20 [facility] (Bld) [#/Vol] [facility] ([facility]) Immature 1.3 % 03-23-2020 [facility] R granulocytes/100 WBC [facility] (Bld) [facility] ([facility]) Interpretation and Abnormal 03-23-2020 [facility] review of laboratory MEDICAL results [place] ([facility]) Lymphocytes (Bld) 1.01 0.83 - 3.57 K/uL 03-23-2020 [facility] [#/Vol] [facility] ([facility]) Lymphocytes/100 WBC 4.9 % 03-23-2020 [facility] (Bld) [facility] ([facility]) MCH (RBC) [Entitic 29.6 26.1 - 33.3 pg 0 [facility] mass] [facility] ([facility]) MCHC (RBC) [Mass/Vol] 32.8 31.9 - 36.5 g/dL 2019 [facility] MCV (RBC) [Entitic 90.1 79 - 94.5 fL 03-23-2020 [facility] vol] [facility] ([facility]) Monocytes (Bld) 0.86 0.24 - 0.93 K/uL 03-23-2020 [facility] [#/Vol] [facility] ([facility]) Monocytes/100 WBC 4.1 % 03-23-2020 [facility] (Bld) [facility] ([facility]) Neutrophils (Bld) 18.61 1.57 - 6.19 K/uL High 03-23-2020 [facility] [#/Vol] [facility] ([facility]) Nucleated RBC/100 WBC 0.0 <=0.2 /100 % 020 [facility] (Bld) [Ratio] WBC [facility]ICA [facility] ([facility]) Platelet mean volume 10.5 8.7 - 12.3 fL 03-23-20 20 [facility] (Bld) [Entitic vol] [facility] ([facility]) Platelets (Bld) 247 146 - 337 K/uL 03-23-2020 [facility] [#/Vol] [facility] ([facility]) RBC (Bld) [#/Vol] 4.46 OTH - OTH 10*6/u 03-23-2020 [facility] L [facility] ([facility]) Segmented 89.6 % 03-23-2020 [facility] R neutrophils/100 WBC MEDICAL (Bld) [place] ([facility]) WBC (Bld) [#/Vol] 20.78 3.73 - 10.1 K/uL High 03-23-2020 [facility] ([id number]) xr fluoro lumbar puncture on 2020-03-22 XR FLUORO LUMBAR EXAM: XR FLUORO LUMBAR PUNCTURE, 03/22/2020 10:17 AM Normal 03-22-2020 [facility] PUNCTURE CLINICAL INDICATIONS: 64 yea rs Male concern for [employer] infection, multiple [facility] bedside attempts [facility] COMPARISON: No previous study is available for comparison. ([id number]) TECHNIQUE AND FINDINGS: Fluoro time: 10 Consent: The risks, benefits, and alternatives of procedure were disc ussed with the patient who provided written and verbal consent. Position: The patient was placed in a position on the fluoroscop y table. The overlying skin was marked, prepped and sterilely draped and prepped utilizing sterile barrier technique at the appropriate vertebral body level. Procedure: A time-out was performed. 2ml 1% Lidocai ne was used to locally anesthetize the puncture site. Lumbar puncture was performed under fluoros copic guidance at the L2-3 level using a 3.5 inch 20 gauge spinal needle . Opening pressure was 15 cm H2O. 10 ml of clear colorless cerebrospinal flui d was removed and sent to the laboratory for analysis. The needle was then removed and a bandage applied to the site. The patient tolerated the procedure well without any immediate complications. Blood loss: None. IMPRESSION: Successful fluoroscopic-guided lumbar puncture with 10 ml of clear colorless CSF removed. Opening pressure: 15 cm H2O. I personally viewed and interpreted these images and I have reviewed and approved this report. xr chest ap portable ed on 2020-03-22 XR CHEST AP EXAM: XR CHEST AP PORTABLE ED, 03/21/2020 21:50 PM Normal 03-22-2020 [facility] ED COMPARISON: No prior studies available for comparison. [facility] CLINICAL INDICATIONS: [facility] RELEVANT CLINICAL HISTORY: ([id number]) FINDINGS: (Adequate technique) Life Support Devices: None Chest Wall: Normal Bertha: Normal Mediastinum: Normal Pleural Spaces: No definite pleural effusion. No definite pn eumothorax. Lungs: Clear Cardiac Silhouette: Normal, without overall or specifi c chamber enlargement, or abnormal calcification Thoracic Aorta: Normal Pulmonary Vessels: Normal, without PVH IMPRESSION: No acute cardiopulmonary disease. Electronically Signed By: Kirill Gregorio MD on 0 11:07 PM vitamin b12 on 2019 Cobalamin (Vitamin B12) 534 211-911 pg/mL Normal 2019 [facility] [Mass/Vol] [facility] ([id number]) Comment: Performed By: #### PTISTR, P TT #### [facility] ([facility]) [address] [place] [address] 11593 urinalysis reflex to culture performable on 2020-03-22 Bacteria LM.HPF (Urine ABSENT ABSENT Normal 020 [facility] sed) [#/Area] [facility] ([id number]) Comment: Performed By: #### PTISTR, P TT #### [facility] ([facility]) [address] [place] [address] 45832 Blood Urine Trace Negative Abnormal 03-22-2020 [facility] (00 000) Comment: Performed By: #### PTISTR, P TT #### [facility] ([facility]) [address] [place] [address] 86124 Glucose Ql (U) Negative Negative Normal 03-22-2020 [facility] nter ([id number]) Comment: Performed By: #### PTISTR, P TT #### [facility] ([facility]) [address] [place] [address] 05094 Ketones Ql (U) Trace Negative Abnormal 03-22-2020 [facility] nter ([id number]) Comment: Performed By: #### PTISTR, P TT #### [facility] ([facility]) [address] [place] [address] 80216 Nitrites Urine Negative Negative Normal 03-22-2020 [facility] nter ([id number]) Comment: Performed By: #### PTISTR, P TT #### [facility] ([facility]) [address] [place] [address] 72727 Specific [place]pine Urine 1.005 >1.001-<1.035 Normal [facility] (40324) Comment: Performed By: #### PTISTR, P TT #### [facility] ( [facility]) [address] [address] Squamous/Epithelial Cells 1/hpf = 1+ 1/hpf = 1+, Normal 0 03-22-2020 [facility] 2-5/hpf = 2+, Univer sity 0/hpf = 0+, [facility] (00 000) Comment: Performed By: #### PTISTR, P TT #### [facility] (D [facility]) [address] [place] [address] 68497 Urobilinogen Urine 0.2 E.U./dL 0.2-1.0 Normal 0 [facility] (45701) Comment: Performed By: #### PTISTR, P TT #### [facility] ([facility]) [address] [address] toxicology screen urine - udrg on 2020-03-22 Barbiturates None Detected Cutoff: 200 ng/mL Normal 03-22 [facility] ([id number]) Comment: Order Comment: For Medical P urposes Only. Nonforensic screen results are considered presumptive and n o confirmatory testing will follow. Drugs are detected by immunoassay or L iquid Chromatography Mass Spectrometry (LC-MS/MS). The LC-MS/MS blaze t was developed and its performance characteristics determined b y the Toxicology Laboratory at [facility] nt. It has not been cleared or approved by the FDA. The laboratory is regul ated under CLIA as qualified to perform high-complexity testing. Thi s test is used for clinical purposes and should not be regarded as investiga tional or for research.The following drugs with their lowest level of detect ion in ng/ml(LOD) are included in this screen:6 Monoacetylmorphine(300), 7 A minoflunitrazepam(25), 7 Aminoclonazepam(50),7 hydroxymitragynine (100), Al phahydroxytriazolam(400),Alphahydroxymidazolam (200), Alphahydrozyalprazola m(200), Alprazolam(50), Amitriptyline(50), Amphetamine(250), Atenolol(5 00),Benzoylecgonine(50), Buprenorphine(100), Bupropion(25),Caffeine(91680 ),Chlordiazepoxide(50), Chlorpheniramine(100), Chlorpromazine(50), Citalopr am(100), Clonazepam(200), Cocaine(25),Codeine(200), Co tinine(500),Desakylflurazepam(50), Desipramine(50), Desmethyldo xepin(100), Dextromethorphan(100), Diazepam(100), Dihydrocodein e(100), Diltazem(50), Diphenhydramine(100),Doxepin (100),EDDP/methadone(100), Ephedrine/Pseudoephedrine(10 0),Fentanyl(25),Flunitrazepam(100),Fluoxetine(20 0), Flurazepam(50),Gabapenti n(1500), Haloperidol(25), Hydrocodone(100), Hydromorphone(200), Imiprami ne(50), Ketamine(25), Lidocaine(25),Lorazepam(100) , Lysergide(LSD)(25),Maprotiline(200), MDA(250), MDMA(250), Meperidine(50),Mi dazolam (200),Methadone(50),Methamph etamine(500), Methylphenidate(50), Metoprolol(50), Morphine(200 ),Nalbuphine(50), Naloxone(200), Norbuprenorphine(300), Nordi azepam(100), Norfentanyl(50),Noroxycodone (100), Norpropoxyphene(50), Nortrip tyline(50), Olanzapine(200),Oxazepam(200 ),Oxycodone(100),Oxymorphone(200), Phencyclidine(PCP)(25), Phen iramine(25), Pregabalin(1500), Promethazine(50), Propoxyphene(100), Propanolo l(50), Quetiapine(25), Quinidine(500), Ranitidine(500), Risperidone (100), Sertraline(50),Temazepam(100), Thioridazine(100), Tramadol( 50), Trazodone(25), Triazolam(100), Trifluoperazine (100),Venlaf axine(50), Verapamil(100), Zolpidem(200) Performed By: #### PTISTR, P TT #### [facility] ([facility] D[facility]) [address] [place] [address] Drugs Detected Diphenhydramine None Detected Abnormal 03-22 [facility] nter ([id number]) Comment: Order Comment: For Medical P urposes Only. Nonforensic screen results are considered presumptive and n o confirmatory testing will follow. Drugs are detected by immunoassay or L iquid Chromatography Mass Spectrometry (LC-MS/MS). The LC-MS/MS blaze t was developed and its performance characteristics determined b y the Toxicology Laboratory at [facility] nter. It has not been cleared or approved by the FDA. The laboratory is regul ated under CLIA as qualified to perform high-complexity testing. Thi s test is used for clinical purposes and should not be regarded as investiga tional or for research.The following drugs with their lowest level of detect ion in ng/ml(LOD) are included in this screen:6 Monoacetylmorphine(300), 7 A minoflunitrazepam(25), 7 Aminoclonazepam(50),7 hydroxymitragynine (100), Al phahydroxytriazolam(400),Alphahydroxymidazolam (200), Alphahydrozyalprazola m(200), Alprazolam(50), Amitriptyline(50), Amphetamine(250), Atenolol(5 00),Benzoylecgonine(50), Buprenorphine(100), Bupropion(25),Caffeine(31039 ),Chlordiazepoxide(50), Chlorpheniramine(100), Chlorpromazine(50), Citalopr am(100), Clonazepam(200), Cocaine(25),Codeine(200), Co tinine(500),Desakylflurazepam(50), Desipramine(50), Desmethyldo xepin(100), Dextromethorphan(100), Diazepam(100), Dihydrocodein e(100), Diltazem(50), Diphenhydramine(100),Doxepin (100),EDDP/methadone(100), Ephedrine/Pseudoephedrine(10 0),Fentanyl(25),Flunitrazepam(100),Fluoxetine(20 0), Flurazepam(50),Gabapenti n(1500), Haloperidol(25), Hydrocodone(100), Hydromorphone(200), Imiprami ne(50), Ketamine(25), Lidocaine(25),Lorazepam(100) , Lysergide(LSD)(25),Maprotiline(200), MDA(250), MDMA(250), Meperidine(50),Mi dazolam (200),Methadone(50),Methamph etamine(500), Methylphenidate(50), Metoprolol(50), Morphine(200 ),Nalbuphine(50), Naloxone(200), Norbuprenorphine(300), Nordi azepam(100), Norfentanyl(50),Noroxycodone (100), Norpropoxyphene(50), Nortrip tyline(50), Olanzapine(200),Oxazepam(200 ),Oxycodone(100),Oxymorphone(200), Phencyclidine(PCP)(25), Phen iramine(25), Pregabalin(1500), Promethazine(50), Propoxyphene(100), Propanolo l(50), Quetiapine(25), Quinidine(500), Ranitidine(500), Risperidone (100), Sertraline(50),Temazepam(100), Thioridazine(100), Tramadol( 50), Trazodone(25), Triazolam(100), Trifluoperazine (100),Venlaf axine(50), Verapamil(100), Zolpidem(200) Performed By: #### PTISTR, P TT #### [facility] ([place]) [address] [place] [address] protein & glucose, csf on 2020-03-22 CSF Glucose 88 40-70 mg/dL High 03-22-2020 [facility] (00 000) Comment: Performed By: #### PTISTR, P TT #### [facility] ( [facility]) [address] [place] [address] CSF Protein 92 15-45 mg/dL High 03-22-2020 [facility] (00 000) Comment: Performed By: #### PTISTR, P TT #### [facility] ([facility]) [address] [place] [address] 21004 novel coronavirus pcr on 2020-03-22 SARS-COV-2 NOT DETECTED NOT DETECTED Normal 03-22-2020 [facility] Ce nter ([id number]) Comment: Order Comment: Viral transpo rt media (clam dredger with pink fluid) or BAL specimen - Collection must b e done while wearing N-95 mask, eye protection, gown and gloves. Please labe l ALL specimens as 2019-V rule out and deliver by hand.This test wa s performed using real time PCR and has been approved for the qualitative detection of SARS-CoV-2 nucleic acid. The test has been authorized by the [facility] under an emergency use authorization for use by authorized laboratories. Result Comment: Negative res ults do not preclude SARS-CoV-2 infection and should not be used as the so le basis for treatment or other patient management decisions. Optimu m specimen types and timing for peak viral levels during infections cau sed by SARS-CoV-2 has not been determined. The possibility of a false negat anastacio result should especially be considered if the patient's recent exposur es or clinical presentation suggest that SARS-CoV-2 infection is prob able, and diagnostic tests for other causes of illness (e.g., other respira tory illness) are negative. Collection of a new specimen and re-testing may be necessary if the patient is critically ill or clinically deteriorating. Performed By: #### PTISTR, P TT #### [facility] ([facility]) [address] [address] meningitis/encephalitis panel, csf on 2020-03-22 CMV DNA Not Detected Not Detected Normal 03-22-2020 [facility] nter ([id number]) Comment: Order Comment: A negative re sult does not exclude the possibility of [employer] infection and should not be used as the sole basis for diagnosis, treatment, or other management decision s. Negative results may occur when the concentration of organism(s) , virus(es), or yeast in the specimen is below the limit of detection. The ME panel does not distinguish between latent and active herpesvirus infection s(CMV, HHV-6). This test was performed using a film array methof for the de tection of: Escherichia coli K1, Haemophilus influenza, Listeria monocyto genes, Neisseria meningitidis, Streptococcus agalactiae, Streptococcus pn eumoniae, Cytomegalovirus, Enterovirus, Herpes Simplex virus 1 and 2, Human Herpesvirus 6, Human parechovirus, Varicella zoster virus, and Cryptococc us neoformans/lauren. Performed By: #### PTISTR, P TT #### [facility] ([facility]) [address] [address] Cryptococcus Not Detected Not Detected Normal 03-22-2020 [facility] (00 000) Comment: Order Comment: A negative re sult does not exclude the possibility of [employer] infection and should not be used as the sole basis for diagnosis, treatment, or other management decision s. Negative results may occur when the concentration of organism(s) , virus(es), or yeast in the specimen is below the limit of detection. The ME panel does not distinguish between latent and active herpesvirus infection s(CMV, HHV-6). This test was performed using a film array methof for the de tection of: Escherichia coli K1, Haemophilus influenza, Listeria monocyto genes, Neisseria meningitidis, Streptococcus agalactiae, Streptococcus pn eumoniae, Cytomegalovirus, Enterovirus, Herpes Simplex virus 1 and 2, Human Herpesvirus 6, Human parechovirus, Varicella zoster virus, and Cryptococc us neoformans/lauren. Performed By: #### PTISTR, P TT #### [facility] ([facility]) [address] [place] [address] E. Coli K1 DNA Not Detected Not Detected Normal 0 [facility] ([id number]) Comment: Order Comment: A negative re sult does not exclude the possibility of [employer] infection and should not be used as the sole basis for diagnosis, treatment, or other management decision s. Negative results may occur when the concentration of organism(s) , virus(es), or yeast in the specimen is below the limit of detection. The ME panel does not distinguish between latent and active herpesvirus infection s(CMV, HHV-6). This test was performed using a film array methof for the de tection of: Escherichia coli K1, Haemophilus influenza, Listeria monocyto genes, Neisseria meningitidis, Streptococcus agalactiae, Streptococcus pn eumoniae, Cytomegalovirus, Enterovirus, Herpes Simplex virus 1 and 2, Human Herpesvirus 6, Human parechovirus, Varicella zoster virus, and Cryptococc us neoformans/lauren. Performed By: #### PTISTR, P TT #### [facility] ([facility]) [address] [address] Enterovirus RNA Not Detected Not Detected Normal 03-22-20 20 [facility] ([id number]) Comment: Order Comment: A negative re sult does not exclude the possibility of [employer] infection and should not be used as the sole basis for diagnosis, treatment, or other management decision s. Negative results may occur when the concentration of organism(s) , virus(es), or yeast in the specimen is below the limit of detection. The ME panel does not distinguish between latent and active herpesvirus infection s(CMV, HHV-6). This test was performed using a film array methof for the de tection of: Escherichia coli K1, Haemophilus influenza, Listeria monocyto genes, Neisseria meningitidis, Streptococcus agalactiae, Streptococcus pn eumoniae, Cytomegalovirus, Enterovirus, Herpes Simplex virus 1 and 2, Human Herpesvirus 6, Human parechovirus, Varicella zoster virus, and Cryptococc us neoformans/lauren. Performed By: #### PTISTR, P TT #### [facility] ([facility]) [address] [address] Haemophilus Not Detected Not Detected Normal 03-22-2020 [facility] Influenza DNA [facility] nter ([id number]) Comment: Order Comment: A negative re sult does not exclude the possibility of [employer] infection and should not be used as the sole basis for diagnosis, treatment, or other management decision s. Negative results may occur when the concentration of organism(s) , virus(es), or yeast in the specimen is below the limit of detection. The ME panel does not distinguish between latent and active herpesvirus infection s(CMV, HHV-6). This test was performed using a film array methof for the de tection of: Escherichia coli K1, Haemophilus influenza, Listeria monocyto genes, Neisseria meningitidis, Streptococcus agalactiae, Streptococcus pn eumoniae, Cytomegalovirus, Enterovirus, Herpes Simplex virus 1 and 2, Human Herpesvirus 6, Human parechovirus, Varicella zoster virus, and Cryptococc us neoformans/lauren. Performed By: #### PTISTR, P TT #### [facility] ([facility]) [address] [place] [address] 12108 Hhv-6 DNA Not Detected Not Detected Normal 03-22-2020 [facility] nter ([id number]) Comment: Order Comment: A negative re sult does not exclude the possibility of [employer] infection and should not be used as the sole basis for diagnosis, treatment, or other management decision s. Negative results may occur when the concentration of organism(s) , virus(es), or yeast in the specimen is below the limit of detection. The ME panel does not distinguish between latent and active herpesvirus infection s(CMV, HHV-6). This test was performed using a film array methof for the de tection of: Escherichia coli K1, Haemophilus influenza, Listeria monocyto genes, Neisseria meningitidis, Streptococcus agalactiae, Streptococcus pn eumoniae, Cytomegalovirus, Enterovirus, Herpes Simplex virus 1 and 2, Human Herpesvirus 6, Human parechovirus, Varicella zoster virus, and Cryptococc us neoformans/lauren. Performed By: #### PTISTR, P TT #### [facility] ([facility]) [address] [address] Hsv-1 DNA Not Detected Not Detected Normal 03-22-2020 [facility] nter ([id number]) Comment: Order Comment: A negative re sult does not exclude the possibility of [employer] infection and should not be used as the sole basis for diagnosis, treatment, or other management decision s. Negative results may occur when the concentration of organism(s) , virus(es), or yeast in the specimen is below the limit of detection. The ME panel does not distinguish between latent and active herpesvirus infection s(CMV, HHV-6). This test was performed using a film array methof for the de tection of: Escherichia coli K1, Haemophilus influenza, Listeria monocyto genes, Neisseria meningitidis, Streptococcus agalactiae, Streptococcus pn eumoniae, Cytomegalovirus, Enterovirus, Herpes Simplex virus 1 and 2, Human Herpesvirus 6, Human parechovirus, Varicella zoster virus, and Cryptococc us neoformans/lauren. Performed By: #### PTISTR, P TT #### [facility] ([facility]) [address] [place] [address] 60303 Hsv-2 DNA Not Detected Not Detected Normal 03-22-2020 [facility] nter ([id number]) Comment: Order Comment: A negative re sult does not exclude the possibility of [employer] infection and should not be used as the sole basis for diagnosis, treatment, or other management decision s. Negative results may occur when the concentration of organism(s) , virus(es), or yeast in the specimen is below the limit of detection. The ME panel does not distinguish between latent and active herpesvirus infection s(CMV, HHV-6). This test was performed using a film array methof for the de tection of: Escherichia coli K1, Haemophilus influenza, Listeria monocyto genes, Neisseria meningitidis, Streptococcus agalactiae, Streptococcus pn eumoniae, Cytomegalovirus, Enterovirus, Herpes Simplex virus 1 and 2, Human Herpesvirus 6, Human parechovirus, Varicella zoster virus, and Cryptococc us neoformans/lauren. Performed By: #### PTISTR, P TT #### [facility] ([facility]) [address] [place] [address] 73240 Human Parechovirus Not Detected Not Detected Normal 03-22 [facility] nter ([id number]) Comment: Order Comment: A negative re sult does not exclude the possibility of [employer] infection and should not be used as the sole basis for diagnosis, treatment, or other management decision s. Negative results may occur when the concentration of organism(s) , virus(es), or yeast in the specimen is below the limit of detection. The ME panel does not distinguish between latent and active herpesvirus infection s(CMV, HHV-6). This test was performed using a film array methof for the de tection of: Escherichia coli K1, Haemophilus influenza, Listeria monocyto genes, Neisseria meningitidis, Streptococcus agalactiae, Streptococcus pn eumoniae, Cytomegalovirus, Enterovirus, Herpes Simplex virus 1 and 2, Human Herpesvirus 6, Human parechovirus, Varicella zoster virus, and Cryptococc us neoformans/lauren. Performed By: #### PTISTR, P TT #### [facility] ([facility]) [address] [place] [address] 61055 Listeria Not Detected Not Detected Normal 03-22-2020 [place] Monocytogenes DNA [facility] nter ([id number]) Comment: Order Comment: A negative re sult does not exclude the possibility of [employer] infection and should not be used as the sole basis for diagnosis, treatment, or other management decision s. Negative results may occur when the concentration of organism(s) , virus(es), or yeast in the specimen is below the limit of detection. The ME panel does not distinguish between latent and active herpesvirus infection s(CMV, HHV-6). This test was performed using a film array methof for the de tection of: Escherichia coli K1, Haemophilus influenza, Listeria monocyto genes, Neisseria meningitidis, Streptococcus agalactiae, Streptococcus pn eumoniae, Cytomegalovirus, Enterovirus, Herpes Simplex virus 1 and 2, Human Herpesvirus 6, Human parechovirus, Varicella zoster virus, and Cryptococc us neoformans/lauren. Performed By: #### PTISTR, P TT #### [facility] ([facility]) [facility] [address] [address] Neisseria Not Detected Not Detected Normal 03-22-2020 [place] Meningitidis DNA [facility] nter ([id number]) Comment: Order Comment: A negative re sult does not exclude the possibility of [employer] infection and should not be used as the sole basis for diagnosis, treatment, or other management decision s. Negative results may occur when the concentration of organism(s) , virus(es), or yeast in the specimen is below the limit of detection. The ME panel does not distinguish between latent and active herpesvirus infection s(CMV, HHV-6). This test was performed using a film array methof for the de tection of: Escherichia coli K1, Haemophilus influenza, Listeria monocyto genes, Neisseria meningitidis, Streptococcus agalactiae, Streptococcus pn eumoniae, Cytomegalovirus, Enterovirus, Herpes Simplex virus 1 and 2, Human Herpesvirus 6, Human parechovirus, Varicella zoster virus, and Cryptococc us neoformans/lauren. Performed By: #### PTISTR, P TT #### [place] [address] Streptococcus Not Detected Not Detected Normal 03-22-2020 [facility] Agalactiae DNA [facility] nter ([id number]) Comment: Order Comment: A negative re sult does not exclude the possibility of [employer] infection and should not be used as the sole basis for diagnosis, treatment, or other management decision s. Negative results may occur when the concentration of organism(s) , virus(es), or yeast in the specimen is below the limit of detection. The ME panel does not distinguish between latent and active herpesvirus infection s(CMV, HHV-6). This test was performed using a film array methof for the de tection of: Escherichia coli K1, Haemophilus influenza, Listeria monocyto genes, Neisseria meningitidis, Streptococcus agalactiae, Streptococcus pn eumoniae, Cytomegalovirus, Enterovirus, Herpes Simplex virus 1 and 2, Human Herpesvirus 6, Human parechovirus, Varicella zoster virus, and Cryptococc us neoformans/lauren. Performed By: #### PTISTR, P TT #### [facility] ([facility]) [address] [place] [address] 65868 Streptococcus Not Detected Not Detected Normal 03-22-2020 [facility] Pneumoniae DNA [facility] nter ([id number]) Comment: Order Comment: A negative re sult does not exclude the possibility of [employer] infection and should not be used as the sole basis for diagnosis, treatment, or other management decision s. Negative results may occur when the concentration of organism(s) , virus(es), or yeast in the specimen is below the limit of detection. The ME panel does not distinguish between latent and active herpesvirus infection s(CMV, HHV-6). This test was performed using a film array methof for the de tection of: Escherichia coli K1, Haemophilus influenza, Listeria monocyto genes, Neisseria meningitidis, Streptococcus agalactiae, Streptococcus pn eumoniae, Cytomegalovirus, Enterovirus, Herpes Simplex virus 1 and 2, Human Herpesvirus 6, Human parechovirus, Varicella zoster virus, and Cryptococc us neoformans/lauren. Performed By: #### PTISTR, P TT #### [facility] ([facility]) [address] [place] [address] 75720 Varicella Zoster Not Detected Not Detected Normal 020 [facility] nter ([id number]) Comment: Order Comment: A negative re sult does not exclude the possibility of [employer] infection and should not be used as the sole basis for diagnosis, treatment, or other management decision s. Negative results may occur when the concentration of organism(s) , virus(es), or yeast in the specimen is below the limit of detection. The ME panel does not distinguish between latent and active herpesvirus infection s(CMV, HHV-6). This test was performed using a film array methof for the de tection of: Escherichia coli K1, Haemophilus influenza, Listeria monocyto genes, Neisseria meningitidis, Streptococcus agalactiae, Streptococcus pn eumoniae, Cytomegalovirus, Enterovirus, Herpes Simplex virus 1 and 2, Human Herpesvirus 6, Human parechovirus, Varicella zoster virus, and Cryptococc us neoformans/lauren. Performed By: #### PTISTR, P TT #### [facility] ([facility]) [address] [place] [address] 65133 lactate, blood on 2 Lactate, Blood 3.2 0.5-1.6 mmol/L High 03-22-2020 [facility] nter ([id number]) Comment: Performed By: #### PTISTR, P TT #### [facility] ([facility]) [address] [place] [address] 15298 folate, serum on 27-03-15 Folate [Mass/Vol] 16.44 >5.38 ng/mL Normal 03-22-2020 O [facility] nter (99066) Comment: Performed By: #### PTISTR, P TT #### [facility] ([facility]) [address] [place] [address] 22452 csf fluid count only on 2020-03-22 CSF Tube Number CSF TUBE 4 Normal 03-22-2020 [facility] (00 000) Comment: Performed By: #### PTISTR, P TT #### [facility] ([facility]) [address] [place] [address] 047[address] Performed By: #### [id number] ## ##[facility] (DEFAULT)[address] [place] [address] 17263 RBC (Bld) [#/Vol] 3 <3 /uL Normal 03-22-2020 [facility] (00 000) Comment: Performed By: #### PTISTR, P TT #### [facility] ([facility]) [address] [place] [address] 41613 WBC (Bld) [#/Vol] 3 <6 /uL Normal 03-22-2020 [facility] (00 000) Comment: Performed By: #### PTISTR, P TT #### [facility] ([facility]) [address] [place] [address] 58933 csf differential on 2020-03-22 Basophils (Csf) 0 % Normal 03-22-2020 [facility] (86142) Comment: Performed By: #### [id number] ## ##[facility] (DEFAULT)[address] [place] [address] 51163 Cells Counted (CSF) 80 Normal 03-22-2020 [facility] (00 000) Comment: Performed By: #### [id number] ## ##[facility] (DEFAULT)[address] [place] [address] 29922 Comment (Csf) Normal 03-22-2020 [facility] (02156) Comment: Result Comment: There is no evidence of an inflammatory response. Performed By: #### [id number] ## ##[facility] (DEFAULT)[address] [place] [address] Differential Reviewed By Marvel Lynch MD Normal 03-22-2020 [facility] (43799) Comment: Performed By: #### [id number] ## ##[facility] (DEFAULT)[address] [place] [address] Eosinophils (Csf) 0 % Normal 03-22-2020 [facility] (33637) Comment: Performed By: #### [id number] ## ##[facility] (DEFAULT)[address] [place] [address], [place] [address] Lymphocytes (Csf) 65 40-80 % Normal 03-22-2020 [facility] (00 000) Comment: Performed By: #### [id number] ## ##[facility] (DEFAULT)[address] [place] [address], [place] [address] Monocytes/Macrophages, CSF 35 15-45 % Normal [facility] nter (31228) Comment: Performed By: #### [id number] ## ##[facility] (DEFAULT)[address] [place] [address] Neutrophils (Csf) 0 <=6 % Normal 03-22-2020 [facility] (00 000) Comment: Performed By: #### [id number] ## ##[facility] (DEFAULT)[address] [place] [address], [place] [address] cryptococcus, antigen csf on 2020-03-22 Cryptococcus Ag, CSF Negative Negative Normal 0 [facility] (89710) Comment: Performed By: #### FCRAG ### #[facility] (DEFAULT)[address] [place] [address] chem 7 (lytes,bun,crea,gluc) on 2020-03-22 Anion gap [Moles/Vol] 15 7-17 mmol/L Normal 03-22-20 20 [facility] nter (66657) Comment: Performed By: #### PTISTR, P TT #### [facility] ([facility]) [address] [place] [address] 98211 Chloride [Moles/Vol] 105 98-108 mmol/L Normal 0 [facility] nter (55411) Comment: Performed By: #### PTISTR, P TT #### [facility] ([facility]) [address] [place] [address] 14786 CO2 [Moles/Vol] 21 22-30 mmol/L Low 03-22-2020 [facility] (00 000) Comment: Performed By: #### PTISTR, P TT #### [facility] ([facility]) [address] [place] [address] 36087 Creatinine [Mass/Vol] 1.11 0.70-1.30 mg/dL Normal 03-22-20 20 [facility] (97795) Comment: Performed By: #### PTISTR, P TT #### [facility] ([facility]) [address] [place] [address] 31961 EST GFR, 60 >=60 mL/min/1.73sqM Normal 03-22-20 20 [facility] (48854) Comment: Performed By: #### PTISTR, P TT #### [facility] ([facility]) [address] [place] [address] 76988 EST GFR,Non 60 >=60 mL/min/1.73sqM Normal 03-22 [facility] (45406) Comment: Performed By: #### PTISTR, P TT #### [facility] ([facility]) [address] [place] [address] 97847 Glucose [Mass/Vol] 142 70-99 mg/dL High 03-22-2020 [facility] nter (19957) Comment: Performed By: #### PTISTR, P TT #### [facility] ([facility]) [address] [place] [address] 76253 Osmolality [Osmolality] 292 278-305 mOsm/kg Normal 2019 [facility] (97428) Comment: Performed By: #### PTISTR, P TT #### [facility] ([facility]) [address] [place] [address] 36085 Potassium [Moles/Vol] 4.4 3.5-5.0 mmol/L Normal 03-22-20 [facility] (49988) Comment: Performed By: #### PTISTR, P TT #### [facility] ([facility]) [address] [place] [address] 28034 Sodium [Moles/Vol] 137 133-143 mmol/L Normal 03-22-2020 [facility] nter (79720) Comment: Performed By: #### PTISTR, P TT #### [facility] ([facility]) [address] [place] [address] 24959 Urea nitrogen [Mass/Vol] 17 7-22 mg/dL Normal 03-22 [facility] nter (74865) Comment: Performed By: #### PTISTR, P TT #### [facility] ([facility]) [address] [place] [address] 90934 Urea nitrogen/Creatinine [Mass 15 mg/mg Normal 03-22-2020 [facility] ratio] [facility] (49590) Comment: Performed By: #### PTISTR, P TT #### [facility] ([facility]) [address] [place] [address] 39721 cbc and electronic diff on 2020-03-22 Basophils (Bld) [#/Vol] 0.04 0.00-0.09 K/uL Normal 2019 [facility] (17663) Comment: Performed By: #### PTISTR, P TT #### [facility] ([facility]) [address] [place] [address] 81075 Basophils/100 WBC (Bld) 0.1 % Normal 2019 [facility] nter (90339) Comment: Performed By: #### PTISTR, P TT #### [facility] ([facility]) [address] [place] [address] 10648 DIFF STATUS Electronic Differential Normal 03-08 [facility] (08449) Comment: Performed By: #### PTISTR, P TT #### [facility] ([facility]) [address] [place] [address] 69659 Eosinophils (Bld) 0.04 0.00-0.48 K/uL Normal 03-22-2020 [facility] [#/Vol] [facility] (22194) Comment: Performed By: #### PTISTR, P TT #### [facility] ([facility]) [address] [place] [address] 62686 Eosinophils/100 WBC (Bld) 0.0 % Normal 03-08 [facility] nter (37783) Comment: Performed By: #### PTISTR, P TT #### [facility] ([facility]) [address] [place] [address] 68917 Hematocrit (Bld) [Volume 43.6 39.6-48.8 % Normal 03-22 [facility] fraction] [facility] (47948) Comment: Performed By: #### PTISTR, P TT #### [facility] ([facility]) [address] [place] [address] 62950 Hemoglobin (Bld) 14.1 13.4-16.8 g/dL Normal 03-22-2020 [facility] [Mass/Vol] [facility] (91996) Comment: Performed By: #### PTISTR, P TT #### [facility] ([facility]) [address] [place] [address] 84214 Immature Grans % 1.0 % Normal 03-22-2020 [facility] (00 000) Comment: Performed By: #### PTISTR, P TT #### [facility] ([facility]) [address] [place] [address] 56925 Immature Grans Absolute 0.17 <=0.08 K/uL High 2019 [facility] nter (93187) Comment: Performed By: #### PTISTR, P TT #### [facility] ([facility]) [address] [place] [address] 20630 Lymphocytes (Bld) 1.08 0.83-3.57 K/uL Normal 03-22-2020 [facility] [#/Vol] [facility] (39271) Comment: Performed By: #### PTISTR, P TT #### [facility] ([facility]) [address] [place] [address] 11654 Lymphocytes/100 WBC (Bld) 6.1 % Normal 03-08 [facility] nter (23044) Comment: Performed By: #### PTISTR, P TT #### [facility] ([facility]) [address] [place] [address] 91235 MCV (RBC) [Entitic vol] 90.8 79.0-94.5 fL Normal 2019 [facility] (45284) Comment: Performed By: #### PTISTR, P TT #### [facility] ([facility]) [address] [place] [address] 35805 Mean Cell Hgb 29.4 26.1-33.3 pg Normal 03-22-2020 [facility] nter (67357) Comment: Performed By: #### PTISTR, P TT #### [facility] ([facility]) [address] [place] [address] 47760 Mean Cell Hgb Conc 32.3 31.9-36.5 g/dL Normal 03-22-2020 [facility] nter (24493) Comment: Performed By: #### PTISTR, P TT #### [facility] ([facility]) [address] [place] [address] 83349 Monocytes (Bld) [#/Vol] 0.72 0.24-0.93 K/uL Normal 2019 [facility] (43615) Comment: Performed By: #### PTISTR, P TT #### [facility] ( [facility]) [address] [place] [address] 06415 Monocytes/100 WBC (Bld) 4.1 % Normal 2019 [facility] nter (25937) Comment: Performed By: #### PTISTR, P TT #### [facility] ([facility]) [address] [place] [address] 19537 Nucleated RBC (Bld) 0.0 <=0.2 /100 WBC Normal 03-22-2020 [facility] [#/Vol] [facility] (78157) Comment: Performed By: #### PTISTR, P TT #### [facility] ([facility]) [address] [place] [address] 98078 Platelet mean volume 10.5 8.7-12.3 fL Normal 0 [facility] (Bld) [Entitic vol] [facility] (76283) Comment: Performed By: #### PTISTR, P TT #### [facility] ([facility]) [address] [place] [address] 02739 Platelets (Bld) [#/Vol] 246 146-337 K/uL Normal 2019 [facility] (94796) Comment: Performed By: #### PTISTR, P TT #### [facility] ([facility]) [address] [place] [address] 74631 RBC (Bld) [#/Vol] 4.80 4.38-5.83 M/uL Normal 03-22-2020 [facility] nter (26115) Comment: Performed By: #### PTISTR, P TT #### [facility] ([facility]) [address] [place] [address] 63500 RBC (Bld) [#/Vol] 13.0 10.9-14.3 % Normal 03-22-2020 [facility] nter (67474) Comment: Performed By: #### PTISTR, P TT #### [facility] ([facility]) [address] [place] [address] 52326 Segs + Bands Auto 88.7 % Normal 03-22-2020 [facility] (00 000) Comment: Performed By: #### PTISTR, P TT #### [facility] ([facility]) [address] [place] [address] 82242 Segs + Bands,Absolute Auto 15.59 1.57-6.19 K/uL High [facility] (81328) Comment: Performed By: #### PTISTR, P TT #### [facility] ([facility]) [address] [place] [address] 10168 WBC (Bld) [#/Vol] 17.58 3.73-10.10 K/uL High 03-22-2020 [facility] nter (97267) Comment: Performed By: #### PTISTR, P TT #### [facility] ([facility]) [address] [place] [address] 66318 blood culture on 27-03-15 Bacteria identified Cx NO GROWTH DAY 5 OF Normal 03-22-2020 [facility] Nom (Bld) 5 [facility] (82446) Comment: Order Comment: 2 Bottles (1 Set - consists of 1 Aerobic (blue) bottle and 1 Anaerobic (purple) bottle) - 1st Peripheral DrawFor syringe method draw:If able to obtain adequate samp le (20 ml) inoculate anaerobic bottle firstIf inadequate sample obtained ( less than 20 ml) inoculate aerobic bottle firstFor vacutainer method d raw: Fill aerobic bottle first, then anaerobic Performed By: #### CKB, C7ED , HFP, ACTMJ, SALIJ, CA, MGO, TSH #### [facility] ([facility]) [address] [place] [address] 85142 ammonia on Ammonia (P) [Mass/Vol] 45 6-47 umol/L Normal 020 [facility] nter (90250) Comment: Performed By: #### PTISTR, P TT #### [facility] (D EFAULT) [address] [place] [address] alcohol (ethanol),blood on 2020-03-22 Alcohol, Serum 10 <10 mg/dL Normal 03-22-2020 [facility] (00 000) Comment: Performed By: #### PTISTR, P TT #### [facility] (D EFAULT) [address] [place] [address] Ethanol [Mass/Vol] None Detected Normal 020 [facility] nter ([id number]) Comment: Performed By: #### PTISTR, P TT #### [facility] (D EFAULT) [address] [place] [id number] No panel information on 2020-03-22 C. gattii+neoformans Not Detected Not Detected [facility] DNA ANA+non-probe Ql [facility] ([facility]) [facility] ([id number]) CMV DNA ANA+non-probe Not Detected Not Detected [facility] ([facility]) [facility] ([id number]) E. coli K1 DNA Not Detected Not Detected 0 [facility] ANA+non-probe ([facility]) [facility] ([id number]) Enterovirus RNA Not Detected Not Detected 03-22-20 20 [facility] ANA+non-probe Ql ([facility]) [facility] ([id number]) H. influenzae DNA Not Detected Not Detected 2019 [facility] ANA+non-probe Ql ([facility]) [facility] ([id number]) HHV 6 DNA Not Detected Not Detected 03-22-2020 [facility] ANA+non-probe ([facility]) [facility] ([id number]) HSV 1 DNA Not Detected Not Detected 03-22-2020 [facility] ANA+non-probe Ql ([facility]) [facility] ([id number]) HSV 2 DNA Not Detected Not Detected 03-22-2020 [facility] ANA+non-probe ([facility]) [facility] ([id number]) Interpretation and Normal 03-22-2020 [facility] review of laboratory MEDICAL results [facility] ([id number]) L. monocytogenes DNA Not Detected Not Detected [facility] ANA+non-probe Ql (CSF) [facility] ([id number]) N. meningitidis DNA Not Detected Not Detected 03-08 [facility] ANA+non-probe Ql (CSF) [facility] ([id number]) Parechovirus A RNA Not Detected Not Detected 03-22 [facility] ANA+non-probe Ql (CSF) [facility] (93094) S. agalactiae DNA Not Detected Not Detected 2019 [facility] ANA+non-probe Ql (CSF) [facility] ([id number]) S. pneumoniae DNA Not Detected Not Detected 2019 [facility] ANA+non-probe Ql (CSF) [facility] ([id number]) VZV DNA ANA+non-probe Not Detected Not Detected [facility] Ql (CSF) [facility] ([id number]) A negative result 03-22-2020 [facility] does not exclude MED ICAL the possibility of C ENTER [employer] infection and (4 3210) should not be used as the sole basis for diagnosis, treatment, or other management decisions. Negative results may occur when the concentration of organism(s), virus(es), or yeast in the specimen is below the limit of detection. The ME panel does not distinguish between latent and active herpesvirus infections(CMV, HHV-6). This test was performed using a film array methof for the detection of: Escherichia coli K1, Haemophilus influenza, Listeria monocytogenes, Neisseria meningitidis, Streptococcus agalactiae, Streptococcus pneumoniae, Cytomegalovirus, Enterovirus, Herpes Simplex virus 1 and 2, Human Herpesvirus 6, Human parechovirus, Varicella zoster virus, and Cryptococcus neoformans/lauren. RBC Manual cnt (CSF) <3 <3 /uL 0 [facility] [#/Vol] [facility] ([id number]) Tube number of CSF TUBE 4 03-22-2020 [facility] Cerebral spinal fluid [facility] ([id number]) WBC Manual cnt (CSF) <3 <6 /uL 0 [facility] [#/Vol] [facility] ([id number]) Glucose (CSF) 88 40 - 70 mg/dL High 03-22-2020 [facility] [Mass/Vol] [facility] ([id number]) Interpretation and Abnormal 03-22-2020 [facility] review of laboratory MEDICAL results [facility] ([id number]) Protein (CSF) 92 15 - 45 mg/dL High 03-22-2020 [facility] [Mass/Vol] [facility] ([id number]) User, Interfaces - 0 12:28 PM EDT EXAM: XR FLUORO LUMBAR PUNCTURE, 03/22/2020 10:17 AM 03-22-2020 [facility]ICAL INDICATIONS: 64 years Male concern for [employer] infectio n, multiple CENTER bedside attempts failed (75694) COMPARISON: No previous study is available for comparison. TECHNIQUE AND FINDINGS: Fluoro time: 10 Consent: The risks, benefits, and alternatives of procedure were disc ussed with the patient who provided written and verbal consent. Position: The patient was placed in a position on the fluoroscop y table. The overlying skin was marked, prepped and sterilely draped and prepped utilizing sterile barrier technique at the appropriate vertebral body level. Procedure: A time-out was performed. 2ml 1% Lidocai ne was used to locally anesthetize the puncture site. Lumbar puncture was performed under fluoros copic guidance at the L2-3 level using a 3.5 inch 20 gauge spinal needle . Opening pressure was 15 cm H2O. 10 ml of clear colorless cerebrospinal flui d was removed and sent to the laboratory for analysis. The needle was then removed and a bandage applied to the site. The patient tolerated the procedure well without any immediate complications. Blood loss: None. IMPRESSION IMPRESSION: Successful fluoroscopic-guided lumbar puncture with 10 ml of clear colorless CSF removed. Opening pressure: 15 cm H2O. I personally viewed and interpreted these images and I have reviewed and approved this report. : XR FLUORO 03-22-2020 [facility] LUMBAR PUNCTURE, MED ICAL 03/22/2020 10:[address] [facility] ([id number]) INDICATIONS: 64 years Male concern for [employer] infection, multiple bedside attempts failed COMPARISON: No previous study is available for comparison. TECHNIQUE AND FINDINGS: Fluoro time: 10 Consent: The risks, benefits, and alternatives of procedure were discussed with the patient who provided written and verbal consent. Position: The patient was placed in a position on the fluoroscopy table. The overlying skin was marked, prepped and sterilely draped and prepped utilizing sterile barrier technique at the appropriate vertebral body level. Procedure: A time-out was performed. 2ml 1% Lidocaine was used to locally anesthetize the puncture site. Lumbar puncture was performed under fluoroscopic guidance at the L2-3 level using a 3.5 inch 20 gauge spinal needle. Opening pressure was 15 cm H2O. 10 ml of clear colorless cerebrospinal fluid was removed and sent to the laboratory for analysis. The needle was then removed and a bandage applied to the site. The patient tolerated the procedure well without any immediate complications. Blood loss: None. IMPRESSION: 03-22-2020 [facility] Successful MEDICAL fluoroscopic-guide C ENTER d lumbar puncture (4 1300) with 10 ml of clear colorless CSF removed. Opening pressure: 15 cm H2O. I personally viewed and interpreted these images and I have reviewed and approved this report. Cathy Mortensen DO - 03/22/2020 10:10 AM EDT RADIOLOG Y PROCEDURE NOTE 03-22-2020 [facility] MEDICAL LOCATION: Fluoroscopy CENTER ([facility]) PROCEDURE NAME/DESCRIPTION: Lumbar Puncture INDICATION FOR PROCEDURE: AMS, concern for infectious proces s PRE PROCEDURE DIAGNOSIS: AMS, concern for infectious process POST PROCEDURE DIAGNOSIS: AMS, concern for infectious proces s PROCEDURE DETAILS AND FINDINGS: Consent: The procedure, risk s and benefits were discussed in detail with the patient. Written and verbal informed consent was obtained. Time out: Prior to the proce dure, a time out was performed in the presence of the patient and all personnel involved in this case. The patient identity, procedure type, position, procedure side/site, and allergies were verified. Procedure Description: The p atient was positioned prone on the fluoroscopy table. The overlying skin was marked, prepped and draped in a sterile fashion. A time-out was performed. 2 mL of 1% Lidocaine w as used to locally anestheti ze the puncture site. Lumbar puncture was performed under fluoroscopic guidance at the L2-3 level using a 3.5 inch 20 gauge spinal needle. The needle was then removed and a b andage was applied to the site. Findings & Specimens Removed : Opening pressure was 15 cm H2O. Closing pressure was not obtained. 10 mL of clear, colorless cerebrospinal fluid was removed and sent to the lab for analysis at the request of the referring service. Needle time in: 9:57am Needle time out: 10:05am Plan/Disposition: The patien lul was sent to the post-procedure recovery area to lay flat for 1 hour in stable condition, having tolerated the procedure well without any complications. PERFORMING PROCEDURE ATTENDING: Dillon Diaz MD PERFORMING PROCEDURE LCAC OPERATOR: Cathy Mortensen DO ESTIMATED BLOOD LOSS: None COMPLICATIONS: None Dillon Diaz MD was physi juan present for the kim components of the procedure and was immediately available throughout the remaini ng portions of the procedure. Interpretation and Abnormal 03-22-2020 [facility] review of laboratory MEDICAL results [facility] ([id number]) Lactate [Moles/Vol] 3.2 0.5 - 1.6 mmol/L High 03-22-2020 [facility] (65443) Ethanol [Mass/Vol] None Detected 020 [facility] ([id number]) Ethanol Ql (Bld) <10 <10 mg/dL 03-22-2020 [facility] (06022) Cobalamin (Vitamin 534 211 - 911 pg/mL 03-22-2020 [facility] B12) [Mass/Vol] [facility] ([id number]) Folate [Mass/Vol] 16.44 >5.38 ng/mL 03-22-2020 [facility] ([id number]) Interpretation and Normal 03-22-2020 [facility] review of laboratory MEDICAL results [place] ([id number]) Anion gap [Moles/Vol] 15 7 - 17 mmol/L 03-22-20 20 [facility] ([id number]) Chloride [Moles/Vol] 105 98 - 108 mmol/L 0 [facility] (65026) CO2 [Moles/Vol] 21 22 - 30 mmol/L Low 03-22-2020 [facility] ([id number]) Creatinine [Mass/Vol] 1.11 0.7 - 1.3 mg/dL 03-22-20 20 [facility] ([id number]) GFR/1.73 sq >=60 >=60 mL/min 03-22-2020 [facility] M.predicted MDRD mL/min/1.73s /{1.73 MEDICAL (S/P/Bld) [Vol qM _m2} CENTE R rate/Area] ([facility]) Glucose [Mass/Vol] 142 70 - 99 mg/dL High 03-22-2020 [facility] ([facility]) Interpretation and Abnormal 03-22-2020 [facility] of laboratory MEDICAL results [place] ([facility]) Osmolality Calc 292 OTH - OTH 03-22-2020 [facility] [Osmolality] [facility] ([facility]) Potassium [Moles/Vol] 4.4 3.5 - 5 mmol/L 03-22-20 [facility] ([facility]) Sodium [Moles/Vol] 137 133 - 143 mmol/L 03-22-2020 [facility] Urea nitrogen 17 7 - 22 mg/dL 03-22-2020 [facility] [Mass/Vol] [facility] ([facility]) Urea 15 mg/mg 03-22-2020 [facility] nitrogen/Creatinine MEDICAL [Mass ratio] [place] ([facility]) Basophils (Bld) <0.04 0 - 0.09 10*3/u 03-22-2020 [facility] [#/Vol] [facility] ([facility]) Basophils/100 WBC 0.1 % 03-22-2020 [facility] (Bld) [facility] ([facility]) DIFF STATUS Electronic 03-22-2020 [facility] Differential [facility] ([facility]) Eosinophils (Bld) <0.04 0 - 0.48 10*3/u 03-22-2020 [facility] [#/Vol] L [facility] ([facility]) Eosinophils/100 WBC 0.0 % 03-22-2020 [facility] (Bld) [facility] ([facility]) Erythrocyte 13.0 10.9 - 14.3 % 03-22-2020 [facility] distribution width M EDICAL (RBC) [Ratio] [place] ([facility]) Hematocrit (Bld) 43.6 39.6 - 48.8 % 03-22-2020 [facility] [Volume fraction] ME DICAL [place] ([facility]) Hemoglobin (Bld) 14.1 13.4 - 16.8 g/dL 03-22-2020 [facility] [Mass/Vol] [facility] ([facility]) Immature granulocytes 0.17 <=0.08 K/uL High 03-22-20 20 [facility] (Bld) [#/Vol] [facility]) Immature 1.0 % 03-22-2020 [facility] granulocytes/100 WBC [facility] (Bld) [place] ([facility]) Interpretation and Abnormal 03-22-2020 [facility] review of laboratory MEDICAL results [place] ([facility]) Lymphocytes (Bld) 1.08 0.83 - 3.57 K/uL 03-22-2020 [facility] [#/Vol] [facility] ([facility]) Lymphocytes/100 WBC 6.1 % 03-22-2020 [facility] (Bld) [facility] ([facility]) MCH (RBC) [Entitic 29.4 26.1 - 33.3 pg 0 [facility] mass] [facility] ([facility]) MCHC (RBC) [Mass/Vol] 32.3 31.9 - 36.5 g/dL 2019 [facility] ([facility]) MCV (RBC) [Entitic 90.8 79 - 94.5 fL 03-22-2020 [facility] vol] [facility] ([facility]) Monocytes (Bld) 0.72 0.24 - 0.93 K/uL 03-22-2020 [facility] [#/Vol] [facility] ([facility]) Monocytes/100 WBC 4.1 % 03-22-2020 [facility] (Bld) [facility] ([id number]) Neutrophils (Bld) 15.59 1.57 - 6.19 K/uL High 03-22-2020 [facility] [#/Vol] [facility] ([facility]) Nucleated RBC/100 WBC 0.0 <=0.2 /100 % 020 [facility] (Bld) [Ratio] WBC [facility] ([facility]) Platelet mean volume 10.5 8.7 - 12.3 fL 03-22-20 20 [facility] (Bld) [Entitic vol] [facility] ([id number]) Platelets (Bld) 246 146 - 337 K/uL 03-22-2020 [facility] [#/Vol] [facility] ([id number]) RBC (Bld) [#/Vol] 4.80 OTH - OTH 10*6/u 03-22-2020 [facility] L [facility] ([facility]) Segmented 88.7 % 03-22-2020 [facility] neutrophils/100 WBC MEDICAL ([facility]) [place] ([facility]) WBC (Bld) [#/Vol] 17.58 3.73 - 10.1 K/uL High 03-22-2020 [facility] ([facility]) Interpretation and Normal 03-22-2020 [facility] review of laboratory [facility] results [place] ([facility]) TSH Qn 1.186 OTH - OTH m[IU]/ 03-22-2020 [facility] ([facility]) Calcium [Mass/Vol] 9.1 8.6 - 10.5 mg/dL 03-22-2020 [facility] ([facility]) Interpretation and Normal 03-22-2020 [facility] review of laboratory [facility] results [place] ([facility]) Magnesium [Mass/Vol] 1.8 1.6 - 2.6 mg/dL 0 [facility] ([facility]) Comment: Moderate Hemolysis Interpretation and review Normal 03-08 [facility] laboratory results [place] ([facility]) SARS-COV-2 NOT DETECTED NOT DETECTED 03-22-2020 [facility] (43 [id number]) Comment: Negative results do not prec lude SARS-CoV-2 infection and should not be used as the sole basis for treatm ent or other patient management decisions. Optimum specimen types and t iming for peak viral levels during infections caused by SARS-CoV-2 has not been determined. The possibility of a false negative result should espec ially be considered if the patient's recent exposures or clinical presen tation suggest that SARS-CoV-2 infection is probable, and diagnostic blaze ts for other causes of illness (e.g., other respiratory illness) are neg ative. Collection of a new specimen and re-testing may be necessary if the patient is critically ill or clinically deteriorating. This test was 03-22-2020 [facility] performed using real MEDICAL time PCR and has [address] been approved for (4 0467) the qualitative detection of SARS-CoV-2 nucleic acid. The test has been authorized by the FDA under an emergency use authorization for use by authorized laboratories. ANALYSIS DATE AND 03/22/2020 02:05 03-22 [facility] TIME [facility] ([id number]) Base excess Calc -2.7 -3 - 3 mmol/L 03-22-2020 [facility] (Bld) [Moles/Vol] [facility] (01236[facility] CO2 (Bld) [Partial 39.1 OTH - OTH mm[Hg] 03-22-2020 [facility] pressure] [facility] ([id number]) HCO3 (Bld) 22.2 22 - 26 mmol/L 03-22-2020 [facility] [Moles/Vol] [facility] ([id number]) Interpretation and Abnormal 03-22-2020 [facility] review of laboratory MEDICAL results [place] ([facility]) Lactate [Moles/Vol] 3.02 0.5 - 1.6 mmol/L High 03-22-2020 [facility]80571[facility] Oxygen (Bld) [Partial <35.0 OTH - OTH mm[Hg] Low 03-22-20 20 [facility] pressure] [facility] ([id number]) Comment: Reportable Range Violation Oxygen/Inspired gas 21 % 03-22-2020 [facility] setting [Volume [facility] Fraction] Ventilator (15983) pH (Bld) 7.372 OTH - OTH [pH] 03-22-2020 [facility] (97520) RECEIVED DATE AND TIME 03/22/2020 02:00 03-22-2020 [facility] (94212) SAMPLE SOURCE Venous 03-22-2020 [facility] (80701) TEST PANEL GASVL 03-22-2020 [facility] ([id number]) Shikha Harvey MD - 03/22/2020 1:59 AM EDT 03-22-2020 [facility] Lumbar Puncture [facility] Performed by: Shikha Harvey MD ([id number]) Authorized by: German Espino MD Location of procedure: [facility] [place] Protocol Immediately prior to procedu re a time out was called to verify the correct patient, procedure, equipment, office support clerk and site/side marked as required Additional Info Lumbar Puncture Procedure Note PROCEDURE PERFORMED BY: Shikha Harvey MD Indication: Suspected meningitis Consent: Unable to be obtained due to patient's condition. UNIVERSAL PROTOCOL/ TIMEOUT: Preprocedure verification is complete patient verified , procedure sites are identified and marked, timeout was called before the start of the procedure. Procedure: The patient was p laced in the left lateral decubitus position and the appropriate landmarks were identified. The area was prepped and draped in the usual sterile fashion. Anesthesia was obtai nicholas using 3 cc of 2% Lidocai ne without epinephrine. A spinal needle was inserted at the L4- L5 level with the stylet in place but no spinal fluid was returned, attempted again at L3-L4. Opening pressure was not measured. At this p oint no fluid was able to be obtained and the patient was sent for a fluoroscopic guided lumbar puncture. The stylet was then replaced and the needle was withdrawn. A sterile dressing was placed over th e site and the patient was placed in the supine position. The patient tolerated the procedure well. Complications: None Dr. Espino was present a nd supervised all critical portions of the procedure. urinalysis reflex to culture performable on 2020-03-21 Appearance (U) Clear Clear Normal 03-21-2020 [facility] ([id number]) Comment: Performed By: #### PTISTR, P TT #### [facility] ([facility]) [address] [place] [address] 60381 Color (U) Yellow Yellow Normal 03-21-2020 [facility] ([id number]) Comment: Performed By: #### PTISTR, P TT #### [facility] ([facility]) [address] [place] [address] 64709 Leukocyte esterase Test Negative Negative Normal 2019 [facility] Ql (U) CENTER (94428) Comment: Performed By: #### PTISTR, P TT #### [facility] ([facility]) [address] [place] [address] 58484 pH (U) 5.5 5.0 - 7.0 [pH] Normal 03-21-2020 [facility] ([id number]) Comment: Performed By: #### PTISTR, P TT #### [facility] ([facility]) [address] [place] [address] 00393 Protein (U) [Mass/Vol] 100 mg/dL Negative mg/dL Abnormal 020 [facility] (43 210) Comment: Performed By: #### PTISTR, P TT #### [facility] ([facility]) [address] [place] [address] 87158 RBC LM.HPF (Urine sed) 0-2 Normal 020 [facility] [#/Area] (26976) Comment: Performed By: #### PTISTR, P TT #### [facility] ([facility]) [address] [place] [address] 01665 WBC LM.HPF (Urine sed) 0-5 Normal 020 [facility] [#/Area] (57799) Comment: Performed By: #### PTISTR, P TT #### [facility] ([facility]) [address] [place] [address] 02853 tsh on 2020-03-21 TSH Qn 1.186 0.550-4.780 uIU/mL Normal 03-21-2020 [facility] nter (89222) Comment: Performed By: #### PTISTR, P TT #### [facility] ([facility]) [address] [place] [address] 45968 troponin on 2020-03 Troponin I.cardiac 0.01 <0.11 ng/mL Normal 03-21-2020 [facility] [Mass/Vol] [facility] (05067) Comment: Performed By: #### PTISTR, P TT #### [facility] ([facility]) [address] [place] [address] 42170 toxicology screen urine - udrg on 2020-03-21 Cannabinoids Screen None Detected Cutoff: 50 Normal 03-21 [facility] Ql (U) ng/mL [facility] (92570) Comment: Order Comment: For Medical P urposes Only. Nonforensic screen results are considered presumptive and n o confirmatory testing will follow. Drugs are detected by immunoassay or L iquid Chromatography Mass Spectrometry (LC-MS/MS). The LC-MS/MS blaze t was developed and its performance characteristics determined b y the Toxicology Laboratory at [facility] nter. It has not been cleared or approved by the FDA. The laboratory is regul ated under CLIA as qualified to perform high-complexity testing. Thi s test is used for clinical purposes and should not be regarded as investiga tional or for research.The following drugs with their lowest level of detect ion in ng/ml(LOD) are included in this screen:6 Monoacetylmorphine(300), 7 A minoflunitrazepam(25), 7 Aminoclonazepam(50),7 hydroxymitragynine (100), Al phahydroxytriazolam(400),Alphahydroxymidazolam (200), Alphahydrozyalprazola m(200), Alprazolam(50), Amitriptyline(50), Amphetamine(250), Atenolol(5 00),Benzoylecgonine(50), Buprenorphine(100), Bupropion(25),Caffeine(62006 ),Chlordiazepoxide(50), Chlorpheniramine(100), Chlorpromazine(50), Citalopr am(100), Clonazepam(200), Cocaine(25),Codeine(200), Co tinine(500),Desakylflurazepam(50), Desipramine(50), Desmethyldo xepin(100), Dextromethorphan(100), Diazepam(100), Dihydrocodein e(100), Diltazem(50), Diphenhydramine(100),Doxepin (100),EDDP/methadone(100), Ephedrine/Pseudoephedrine(10 0),Fentanyl(25),Flunitrazepam(100),Fluoxetine(20 0), Flurazepam(50),Gabapenti n(1500), Haloperidol(25), Hydrocodone(100), Hydromorphone(200), Imiprami ne(50), Ketamine(25), Lidocaine(25),Lorazepam(100) , Lysergide(LSD)(25),Maprotiline(200), MDA(250), MDMA(250), Meperidine(50),Mi dazolam (200),Methadone(50),Methamph etamine(500), Methylphenidate(50), Metoprolol(50), Morphine(200 ),Nalbuphine(50), Naloxone(200), Norbuprenorphine(300), Nordi azepam(100), Norfentanyl(50),Noroxycodone (100), Norpropoxyphene(50), Nortrip tyline(50), Olanzapine(200),Oxazepam(200 ),Oxycodone(100),Oxymorphone(200), Phencyclidine(PCP)(25), Phen iramine(25), Pregabalin(1500), Promethazine(50), Propoxyphene(100), Propanolo l(50), Quetiapine(25), Quinidine(500), Ranitidine(500), Risperidone (100), Sertraline(50),Temazepam(100), Thioridazine(100), Tramadol( 50), Trazodone(25), Triazolam(100), Trifluoperazine (100),Venlaf axine(50), Verapamil(100), Zolpidem(200) Performed By: #### PTISTR, P TT #### [facility] (Dale DIAZ) [address] [place] [address] salicylate level on 2020-03-21 Salicylate 5.0 Therapeutic Range: mg/dL Normal 03-21-2020 [facility] 20.0-30.0 mg/dL [facility] ([id number]) Comment: Result Comment: Repeated and verified. Performed By: #### CKB, C7ED , HFP, ACTMJ, SALIJ, CA, MGO, TSH #### [facility] (Dale DIAZ) [address] [place] [address] 63013 ptt on 2020-03-21 aPTT Coag (Bld) [Time] 27.0 24.0-34.3 sec Normal 020 [facility] (77390) Comment: Performed By: #### PTISTR, P TT #### [facility] ([facility]) [address] [place] [address] 55264 ptinr-stroke on INR Coag (PPP) [Relative 1.0 0.9-1.1 {INR} Normal 03-21 [facility] time] [facility] (95476) Comment: Performed By: #### PTISTR, P TT #### [facility] ([facility]) [address] [place] [address] 14444 PT Coag (PPP) [Time] 13.5 11.9-14.2 sec Normal 0 [facility] (70299) Comment: Performed By: #### PTISTR, P TT #### [facility] ([facility]) [address] [place] [address] 05371 magnesium on 03-21 Magnesium [Mass/Vol] 1.8 1.6-2.6 mg/dL Normal 0 [facility] (34015) Comment: Result Comment: Moderate Hem olysis Performed By: #### PTISTR, P TT #### [facility] ([facility]) [address] [place] [address] 83656 hepatic function panel on 2020-03-21 Albumin [Mass/Vol] 4.4 3.5-5.0 g/dL Normal 03-21-2020 [facility] (25976) Comment: Performed By: #### CKB, C7ED , HFP, ACTMJ, SALIJ, CA, MGO, TSH #### [facility] ([facility]) [address] [place] [address] 33473 ALP [Catalytic activity/Vol] 44 32-126 U/L Normal 0 03-21-2020 [facility] (15392) Comment: Performed By: #### CKB, C7ED , HFP, ACTMJ, SALIJ, CA, MGO, TSH #### [facility] ([facility]) [address] [place] [address] 11912 ALT [Catalytic activity/Vol] 33 10-52 U/L Normal 0 03-21-2020 [facility] (66843) Comment: Result Comment: Slightly hem olyzed Performed By: #### CKB, C7ED , HFP, ACTMJ, SALIJ, CA, MGO, TSH #### [facility] ([facility]) [address] [place] [address] 26046 AST [Catalytic activity/Vol] 39 14-40 U/L Normal 0 03-21-2020 [facility] (18609) Comment: Result Comment: Slightly hem olyzed Performed By: #### CKB, C7ED , HFP, ACTMJ, SALIJ, CA, MGO, TSH #### [facility] ([facility]) [address] [place] [address] 91630 Bilirubin [Mass/Vol] 0.6 <1.5 mg/dL Normal 0 [facility] (65142) Comment: Result Comment: Slightly hem olyzed Performed By: #### CKB, C7ED , HFP, ACTMJ, SALIJ, CA, MGO, TSH #### [facility] ([facility]) [address] [place] [address] 53038 Bilirubin.direct [Mass/Vol] 0.1 0.0-<0.3 mg/dL Normal [facility] (62070) Comment: Result Comment: Slightly hem olyzed Performed By: #### CKB, C7ED , HFP, ACTMJ, SALIJ, CA, MGO, TSH #### [facility] ([facility]) [address] [place] [address] 32738 Protein [Mass/Vol] 7.3 6.4-8.3 g/dL Normal 03-21-2020 [facility] (64155) Comment: Performed By: #### CKB, C7ED , HFP, ACTMJ, SALIJ, CA, MGO, TSH #### [facility] (Dale DIAZ) [address] [place], [place] [id number] ct stroke head-stroke alert only on 2020-03-21 CT STROKE EXAM: CT STROKE HEAD-STROKE ALERT ONLY, 03/21/2020 9:11 PM Normal 03-21-2020 [facility] HEAD-STROKE ALERT COMPARISON: CT head from out side hospital dated 1506 on March 21, 2020 as [facility] ONLY available in [employer] at the time of this [facility] CLINICAL INDICATIONS: 64 years Male stroke; reportedly found unresponsive (97165) with last known well prior to midnight of March 21, 2020 TECHNIQUE: A series of transaxial comput erized tomographic images are obtained from base of skull to vertex without intravenous contrast. Axial whole-head and thin section posterior fossa slices are provided. Dual e nergy virtual noncontrast images were also reviewed. Reformats: Sagittal and coronal. FINDINGS: There is contrast within the vascular system from the outs [facility] CTA. No acute intracranial hemorrhage. No mass affect or midline shift. No extracerebral collection. 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 There is ex vacuo dilation of the left lateral ventricle secondary to volume loss. Similar appearance of hypoattenuation involving the anterior right basal ganglia. Calvarium and skull base appear intact. Nonspecific pa rtial opacification of the mastoid air cells. IMPRESSION: No acute intracranial hemorrhage. Hypoattenuation along the anterior right basal ganglia is unchanged since the out side facility CT earlier same day, and could represent potentially an acute lacunar infarct, sequel a of hypoxic-ischemic injury, or toxic metabolic process such a s carbon monoxide toxicity. Remote infarcts of the left frontal, parietal, and tem poral lobes as well as of the right parietal lobe and right basal ganglia with as sociated ex vacuo dilation of the left lateral ventricle. Findings were discussed with Ana Burns MD at 8259 on Mar. I personally viewed and interpreted these images and I have reviewed and approved this report. ck on 2020-03-21 CK [Catalytic activity/Vol] 161 30-220 U/L Normal [facility] (99334) Comment: Result Comment: Slightly hem olyzed Performed By: #### CKB, C7ED , HFP, ACTMJ, SALIJ, CA, MGO, TSH #### [facility] ([facility]) [address] [place] [address] 13916 chm 7 - ed on 03-21 Anion gap [Moles/Vol] 16 7-17 mmol/L Normal 03-21-20 20 [facility] (60269) Comment: Performed By: #### CKB, C7ED , HFP, ACTMJ, SALIJ, CA, MGO, TSH #### [facility] ([facility]) [address] [place] [address] 69189 Chloride [Moles/Vol] 102 98-108 mmol/L Normal 0 [facility] (82999) Comment: Performed By: #### CKB, C7ED , HFP, ACTMJ, SALIJ, CA, MGO, TSH #### [facility] (Dale JOSE) [address] [place] [address] 98911 CO2 [Moles/Vol] 21 22-30 mmol/L Low 03-21-2020 [facility] (00 000) Comment: Performed By: #### CKB, C7ED , HFP, ACTMJ, SALIJ, CA, MGO, TSH #### [facility] ([facility]) [address] [place] [address] 07619 Creatinine [Mass/Vol] 1.11 0.70-1.30 mg/dL Normal 03-21-20 20 [facility] (59067) Comment: Performed By: #### CKB, C7ED , HFP, ACTMJ, SALIJ, CA, MGO, TSH #### [facility] (Dale DIAZ) [address] [place] [address] 02045 EST GFR, 60 >=60 mL/min/1.73sqM Normal 03-21-20 [facility] (51554) Comment: Performed By: #### CKB, C7ED , HFP, ACTMJ, SALIJ, CA, MGO, TSH #### [facility] (Dale DIAZ) [address] [place] [address] 63086 EST GFR,Non 60 >=60 mL/min/1.73sqM Normal 03-21 [facility] (18596) Comment: Performed By: #### CKB, C7ED , HFP, ACTMJ, SALIJ, CA, MGO, TSH #### [facility] (Dale DIAZ) [address] [place] [address] 59218 Glucose [Mass/Vol] 150 70-99 mg/dL High 03-21-2020 [facility] (15666) Comment: Performed By: #### CKB, C7ED , HFP, ACTMJ, SALIJ, CA, MGO, TSH #### [facility] (Dale DIAZ) [address] [place] [address] 62472 Osmolality [Osmolality] 288 278-305 mOsm/kg Normal 2019 [facility] (36195) Comment: Performed By: #### CKB, C7ED , HFP, ACTMJ, SALIJ, CA, MGO, TSH #### [facility] (Dale DIAZ) [address] [place] [address] 94323 Potassium [Moles/Vol] 5.1 3.5-5.0 mmol/L High 03-21-20 [facility] (37061) Comment: Result Comment: Slightly hem olyzed Performed By: #### CKB, C7ED , HFP, ACTMJ, SALIJ, CA, MGO, TSH #### [facility] (Dale DIAZ) [address] [place] [address] 99505 Sodium [Moles/Vol] 134 133-143 mmol/L Normal 03-21-2020 [facility] (20269) Comment: Performed By: #### CKB, C7ED , HFP, ACTMJ, SALIJ, CA, MGO, TSH #### [facility] ([facility] [address] [place] [address] 11704 Urea nitrogen [Mass/Vol] 15 7-22 mg/dL Normal 03-21 [facility] (69299) Comment: Performed By: #### CKB, C7ED , HFP, ACTMJ, SALIJ, CA, MGO, TSH #### [facility] ([facility]) [address] [place] [address] 08819 Urea nitrogen/Creatinine [Mass 14 mg/mg Normal 03-21-2020 [facility] ratio] [facility] (52997) Comment: Performed By: #### CKB, C7ED , HFP, ACTMJ, SALIJ, CA, MGO, TSH #### [facility] ([facility]) [address] [place] [address] 80573 cbc and electronic diff on 2020-03-21 Basophils (Bld) [#/Vol] 0.04 0.00-0.09 K/uL Normal 2019 [facility] (58537) Comment: Performed By: #### [id number] ## ## [facility] ([facility]) [address] [place] [address] 90652 Basophils/100 WBC (Bld) 0.1 % Normal 2019 [facility] (37805) Comment: Performed By: #### [id number] ## ## [facility] ([facility]) [address] [place] [address] 86931 DIFF STATUS Electronic Differential Normal 03-08 [facility] (79778) Comment: Performed By: #### [id number] ## ## [facility] ([facility]) [address] [place] [address] 19757 Eosinophils (Bld) 0.04 0.00-0.48 K/uL Normal 03-21-2020 [facility] [#/Vol] [facility] (71760) Comment: Performed By: #### [id number] ## ## [facility] ([facility]) [address] [place] [address] 90248 Eosinophils/100 WBC (Bld) 0.1 % Normal 03-08 [facility] (84240) Comment: Performed By: #### [id number] ## ## [facility] ([facility]) [address] [place] [address] 97913 Hematocrit (Bld) [Volume 46.2 39.6-48.8 % Normal 03-21 [facility] fraction] [facility] (53230) Comment: Performed By: #### [id number] ## ## [facility] ([facility]) [address] [place] [address] 44588 Hemoglobin (Bld) 15.2 13.4-16.8 g/dL Normal 03-21-2020 [facility] [Mass/Vol] [facility] (84052) Comment: Performed By: #### [id number] ## ## [facility] ([facility]) [address] [place] [address] 06000 Immature Grans % 0.4 % Normal 03-21-2020 [facility] (00 000) Comment: Performed By: #### [id number] ## ## [facility] ([facility]) [address] [place] [address] 41953 Immature Grans Absolute 0.07 <=0.08 K/uL Normal 2019 [facility] (63030) Comment: Performed By: #### [id number] ## ## [facility] ([facility]) [address] [place] [address] 67749 Lymphocytes (Bld) 0.96 0.83-3.57 K/uL Normal 03-21-2020 [facility] [#/Vol] [facility] (32159) Comment: Performed By: #### [id number] ## ## [facility] ([facility]) [address] [place] [address] 26444 Lymphocytes/100 WBC (Bld) 5.6 % Normal 03-08 [facility] (88972) Comment: Performed By: #### [id number] ## ## [facility] ([facility]) [address] [place] [address] 93939 MCV (RBC) [Entitic vol] 89.2 79.0-94.5 fL Normal 2019 [facility] (16184) Comment: Performed By: #### [id number] ## ## [facility] ([facility]) [address] [place] [address] 34574 Mean Cell Hgb 29.3 26.1-33.3 pg Normal 03-21-2020 [facility] (05065) Comment: Performed By: #### [id number] ## ## [facility] ([facility]) [address] [place] [address] 48517 Mean Cell Hgb Conc 32.9 31.9-36.5 g/dL Normal 03-21-2020 [facility] (86283) Comment: Performed By: #### [id number] ## ## [facility] ([facility]) [address] [place] [address] 95484 Monocytes (Bld) [#/Vol] 0.13 0.24-0.93 K/uL Low 2019 [facility] (18498) Comment: Performed By: #### [id number] ## ## [facility] ([facility]) [address] [place] [address] 70406 Monocytes/100 WBC (Bld) 0.8 % Normal 2019 [facility] (15195) Comment: Performed By: #### [id number] ## ## [facility] ([facility]) [address] [place] [address] 26661 Nucleated RBC (Bld) 0.0 <=0.2 /100 WBC Normal 03-21-2020 [facility] [#/Vol] [facility] (74807) Comment: Performed By: #### [id number] ## ## [facility] ([facility]) [address] [place] [address] 89467 Platelet mean volume 10.2 8.7-12.3 fL Normal 0 [facility] (Bld) [Entitic vol] [facility] (28792) Comment: Performed By: #### [id number] ## ## [facility] ([facility]) [address] [place] [address] 60812 Platelets (Bld) [#/Vol] 247 146-337 K/uL Normal 2019 [facility] (93399) Comment: Performed By: #### [id number] ## ## [facility] ([facility]) [address] [place] [address] 49387 RBC (Bld) [#/Vol] 5.18 4.38-5.83 M/uL Normal 03-21-2020 O [facility] nter (51016) Comment: Performed By: #### [id number] ## ## [facility] ([facility]) [address] [place] [address] 46257 RBC (Bld) [#/Vol] 13.0 10.9-14.3 % Normal 03-21-2020 O [facility] nter (13380) Comment: Performed By: #### [id number] ## ## [facility] ([facility]) [address] [place] [address] 16378 Segs + Bands Auto 93.0 % Normal 03-21-2020 O [facility] (00 000) Comment: Performed By: #### [id number] ## ## [facility] ([facility]) [address] [place] [address] 12865 Segs + Bands,Absolute Auto 15.85 1.57-6.19 K/uL High [facility] (70865) Comment: Performed By: #### [id number] ## ## [facility] ([facility]) [address] [place] [address] 75441 WBC (Bld) [#/Vol] 17.04 3.73-10.10 K/uL High 03-21-2020 [facility] nter (49053) Comment: Performed By: #### [id number] ## ## [facility] (aDle DIAZ) [address] [place] [address] 67169 calcium on Calcium [Mass/Vol] 9.1 8.6-10.5 mg/dL Normal 03-21-2020 [facility] nter (61127) Comment: Performed By: #### CKB, C7ED , HFP, ACTMJ, SALIJ, CA, MGO, TSH #### [facility] (Dale DIAZ) [address] [place] [address] 47157 acetaminophen level on 2020-03-21 Acetaminophen 10.0 Therapeutic Range: mcg/mL Normal 020 [facility] [Mass/Vol] 10-32 mcg/mL [facility] nter (03006) Comment: Performed By: #### CKB, C7ED , HFP, ACTMJ, SALIJ, CA, MGO, TSH #### [facility] (Dale DIAZ) [address] [place] [address] 44565 Icterus 0 Normal 03-21-2020 [facility] (50515) Comment: Performed By: #### CKB, C7ED , HFP, ACTMJ, SALIJ, CA, MGO, TSH #### [facility] (Dale DIAZ) [address] [place] [address] 81557 No panel information on 2020-03-21 Barbiturates Ql None Detected Cutoff: 200 03-21-20 20 [facility] (U) ng/mL [facility] (91370) Drugs identified Diphenhydramine None Detected Abnormal [facility] Screen Nom (U) MEDIC AL CENTER (70699) Interpretation Abnormal 03-21-2020 [facility] and review of MEDICA L laboratory CENTER results (65997) For Medical Purposes 0 [facility] Only. Nonforensic ME DICAL screen results are C ENTER considered (22302) presumptive and no confirmatory testing will follow. Drugs are detected by immunoassay or Liquid Chromatography Mass Spectrometry (LC-MS/MS). The LC-MS/MS test was developed and its performance characteristics determined by the Toxicology Laboratory at [facility]. It has not been cleared or approved by the FDA. The laboratory is regulated under CLIA as qualified to perform high-complexity testing. This test is used for clinical purposes and should not be regarded as investigational or for research. The following drugs with their lowest level of detection in ng/ml(LOD) are included in this screen: 6 Monoacetylmorphine(30 0), 7 Aminoflunitrazepam(25 ), 7 Aminoclonazepam(50),7 hydroxymitragynine (100), Alphahydroxytriazolam (400),Alphahydroxymid azolam (200), Alphahydrozyalprazola m(200), Alprazolam(50), Amitriptyline(50), Amphetamine(250), Atenolol(500),Benzoyl ecgonine(50), Buprenorphine(100), Bupropion(25),Caffein e(42727),Chlordiazepo xide(50), Chlorpheniramine(100) , Chlorpromazine(50), Citalopram(100), Clonazepam(200), Cocaine(25),Codeine(2 00), Cotinine(500),Desakyl flurazepam(50), Desipramine(50), Desmethyldoxepin(100) , Dextromethorphan(100) , Diazepam(100), Dihydrocodeine(100), Diltazem(50), Diphenhydramine(100), Doxepin(100),EDDP/met hadone(100), Ephedrine/Pseudoephed rine(100),Fentanyl(25 ),Flunitrazepam(100), Fluoxetine(200), Flurazepam(50),Gabape ntin(1500), Haloperidol(25), Hydrocodone(100), Hydromorphone(200), Imipramine(50), Ketamine(25), Lidocaine(25),Lorazep am(100), Lysergide(LSD)(25),Ma protiline(200), MDA(250), MDMA(250), Meperidine(50),Midazo ibarra (200),Methadone(50), Methamphetamine(500), Methylphenidate(50), Metoprolol(50), Morphine(200),Nalbuph ine(50), Naloxone(200), Norbuprenorphine(300) , Nordiazepam(100), Norfentanyl(50),Norox ycodone (100), Norpropoxyphene(50), Nortriptyline(50), Olanzapine(200),Oxaze diana(200),Oxycodone(10 0),Oxymorphone(200), Phencyclidine(PCP)(25 ), Pheniramine(25), Pregabalin(1500), Promethazine(50), Propoxyphene(100), Propanolol(50), Quetiapine(25), Quinidine(500), Ranitidine(500), Risperidone(100), Sertraline(50),Temaze diana(100), Thioridazine(100), Tramadol(50), Trazodone(25), Triazolam(100), Trifluoperazine (100),Venlafaxine(50) , Verapamil(100), Zolpidem(200) Ammonia (P) 45 6 - 47 umo 03-21-2020 [facility] [Mass/Vol] l/[facility] (42336) Interpretation Normal 03-21-2020 [facility] and review of MEDICA laboratory CENTER results ([id number]) EXAM: XR CHEST AP 03-21-2020 O [facility] PORTABLE ED, [facility] 03/21/2020 21:50 PM CENTER COMPARISON: No prior (59650) studies available for comparison. CLINICAL INDICATIONS: unresponsive RELEVANT CLINICAL HISTORY: FINDINGS: (Adequate technique) Life Support Devices: None Chest Wall: Normal Bertha: Normal Mediastinum: Normal Pleural Spaces: No definite pleural effusion. No definite pneumothorax. Lungs: Clear Cardiac Silhouette: Normal, without overall or specific chamber enlargement, or abnormal calcification Thoracic Aorta: Normal Pulmonary Vessels: Normal, without PVH User, Interfaces - 0 11:10 PM EDT EXAM: XR CHEST AP PORTABLE ED, 03/21/2020 21:50 PM 03-21-2020 [facility] MEDICAL COMPARISON: No prior studies available for comparison. [facility] (17391) CLINICAL INDICATIONS: unresponsive RELEVANT CLINICAL HISTORY: FINDINGS: (Adequate technique) Life Support Devices: None Chest Wall: Normal Ebrtha: Normal Mediastinum: Normal Pleural Spaces: No definite pleural effusion. No definite pn eumothorax. Lungs: Clear Cardiac Silhouette: Normal, without overall or specifi c chamber enlargement, or abnormal calcification Thoracic Aorta: Normal Pulmonary Vessels: Normal, without PVH IMPRESSION IMPRESSION: No acute cardiopulmonary disease. Electronically Signed By: Kirill Gregorio MD on 0 11:07 PM IMPRESSION: No acute 0 [facility] cardiopulmonary MEDI ERNST disease. CENTER Glucose 122 70 - 99 mg/ High 03-21-2020 [facility] [Mass/Vol] dL [facility] (52703) Interpretation Abnormal 03-21-2020 [facility] and review of [facility] laboratory CENTER results (36487) Poc Sample Type CAPBL 03-21-2020 [facility] (18037) Test performed at 03-21-2020 [facility] address of the [facility] patient encounter. C [facility] (00632) Interpretation Normal 03-21-2020 [facility] and review of [facility] laboratory CENTER results (87367) Troponin <0.01 <0.11 ng/mL ng/ 03-21-2020 [facility] I.cardiac DL <= mL MEDI ERNST 0.01 ng/mL [facility] [Mass/Vol] (75881) Bacteria LM Ql ABSENT ABSENT 03-21-2020 [facility] (Urine sed) [facility] (18729) Glucose Test Negative Negative 03-21-2020 [facility] strip (U) [facility] [Mass/Vol] [facility] (37704) Interpretation Abnormal 03-21-2020 [facility] results ([id number]) Ketones (U) Trace Negative Abnormal 03-21-2020 [facility] [Mass/Vol] [facility] (32950) Nitrite Ql (U) Negative Negative 03-21-2020 [facility] ([facility]) RBC (U) [#/Vol] Trace Negative Abnormal 03-21-2020 [facility] ([facility]) Specific gravity <=1.005 OTH - OTH 03-21-2020 [facility] (U) [Rel density] RI DICAL [facility] ([facility]) Squamous/Epitheli 1/hpf = 1+ 1/hpf = 1+, 0 [facility] al Cells 2-5/hpf = 2+, MEDICA L 0/hpf = 0+, CENTER ABSENT (68056) Urobilinogen (U) 0.2 E.U./dL 0.2 - 1.0 03-21-2020 [facility] [Mass/Vol] [facility] ([facility]) Interpretation Normal 03-21-2020 [facility] and review of [facility] laboratory CENTER results ([facility]) Salicylates <5.0 Therapeutic mg/ 03-21-2020 [facility] [Mass/Vol] Range: dL [facility] 20.0-30.0 [facility] mg/dL mg/dL ([facility]) Comment: Repeated and verified. Acetaminophen <10.0 Therapeutic Range: 020 [facility] [Mass/Vol] 10-32 mcg/mL mcg/mL [facility] ([facility]) Icterus 0 03-21-2020 [facility] ([facility]) Albumin [Mass/Vol] 4.4 3.5 - 5 g/dL 03-21-2020 [facility] ([facility]) ALP [Catalytic 44 32 - 126 U/L 03-21-2020 [facility] activity/Vol] [facility]) ALT [Catalytic 33 10 - 52 U/L 03-21-2020 [facility] activity/Vol] [facility] ([facility]) Comment: Slightly hemolyzed Anion gap [Moles/Vol] 16 7 - 17 mmol/L 03-21-20 20 [facility] (21543) AST [Catalytic activity/Vol] 39 14 - 40 U/L 0 03-21-2020 [facility] ([facility]) Comment: Slightly hemolyzed Bilirubin [Mass/Vol] 0.6 <1.5 mg/dL 0 [facility] ([id number]) Comment: Slightly hemolyzed Bilirubin.direct [Mass/Vol] 0.1 0 - 0.3 mg/dL [facility] (40908) Comment: Slightly hemolyzed Chloride [Moles/Vol] 102 98 - 108 mmol/L 0 [facility] (43 210) CK [Catalytic activity/Vol] 161 30 - 220 U/L [facility] (43 210) Comment: Slightly hemolyzed CO2 [Moles/Vol] 21 22 - 30 mmol/L Low 03-21-2020 [facility] (48568) Creatinine [Mass/Vol] 1.11 0.7 - 1.3 mg/dL 03-21-20 [facility] (24181) GFR/1.73 sq >=60 >=60 mL/min/{1.73_ 03-21-2020 [facility] M.predicted MDRD mL/min/1.73 m2} M [facility]ICAL CENTER (S/P/Bld) [Vol sqM (4321 0) rate/Area] Glucose [Mass/Vol] 150 70 - 99 mg/dL High 03-21-2020 [facility] (13356) Interpretation and Normal 03-21-2020 [facility] review of laboratory [facility] results ([id number]) Interpretation and Abnormal 03-21-2020 [facility] review of laboratory [facility] results ([id number]) Osmolality Calc 288 OTH - OTH 03-21-2020 [facility] [Osmolality] [facility] (61531) Potassium [Moles/Vol] 5.1 3.5 - 5 mmol/L High 03-21-20 [facility] (83021) Comment: Slightly hemolyzed Protein [Mass/Vol] 7.3 6.4 - g/dL 03-21-2020 [facility] 8.3 [facility] (86826) Sodium [Moles/Vol] 134 133 - mmol/L 03-21-2020 [facility] 143 [facility] (20760) Urea nitrogen 15 7 - 22 mg/dL 03-21-2020 [facility] [Mass/Vol] [facility] (44456) Urea 14 mg/mg 03-21-2020 [facility] nitrogen/Creatinine MEDICAL [Mass ratio] [facility] ([id number]) EXAM: CT STROKE 03-21-2020 [facility] HEAD-STROKE ALERT ME DICAL ONLY, 03/21/2020 9:11 CENTER PM COMPARISON: CT ([id number]) head from outside hospital dated 150 on March 21, 2020 as available in [employer] at the time of this dictation CLINICAL INDICATIONS: 64 years Male stroke; reportedly found unresponsive with last known well prior to midnight of March 21, 2020 TECHNIQUE: A series of transaxial computerized tomographic images are obtained from base of skull to vertex without intravenous contrast. Axial whole-head and thin section posterior fossa slices are provided. Dual energy virtual noncontrast images were also reviewed. Reformats: Sagittal and coronal. FINDINGS: There is contrast within the vascular system from the outside hospital CTA. No acute intracranial hemorrhage. No mass affect or midline shift. No extracerebral collection. 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 There is ex vacuo dilation of the left lateral ventricle secondary to volume loss. Similar appearance of hypoattenuation involving the anterior right basal ganglia. Calvarium and skull base appear intact. Nonspecific partial opacification of the mastoid air cells. IMPRESSION: No acute 0 [facility] intracranial MEDICAL hemorrhage. CENTER Hypoattenuation along (83941) the anterior right basal ganglia is unchanged since the outside facility CT earlier same day, and could represent potentially an acute lacunar infarct, sequela of hypoxic-ischemic injury, or toxic metabolic process such as carbon monoxide toxicity. Remote infarcts of the left frontal, parietal, and temporal lobes as well as of the right parietal lobe and right basal ganglia with associated ex vacuo dilation of the left lateral ventricle. Findings were discussed with Ana Burns MD at 2118 on March 21, 2020. I personally viewed and interpreted these images and I have reviewed and approved this report. User, Interfaces - 0 9:41 PM EDT EXAM: CT STROKE HEAD-STROKE ALERT ONLY, 03/21/2020 9:11 PM 03-21-2020 [facility] MEDICAL COMPARISON: CT head from outside hospital dated 1506 on March 21, 2020 as CENTER available in [employer] at the time of this dictation ([id number]) CLINICAL INDICATIONS: 64 years Male stroke; reportedly found unresponsive with last known well prior to midnight of March 21, 2020 TECHNIQUE: A series of transaxial comput erized tomographic images are obtained from base of skull to vertex without intravenous contrast. Axial whole-head and thin section posterior fossa slices are provided. Dual e nergy virtual noncontrast images were also reviewed. Reformats: Sagittal and coronal. FINDINGS: There is contrast within the vascular system from the outs [facility] CTA. No acute intracranial hemorrhage. No mass affect or midline shift. No extracerebral collection. 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 There is ex vacuo dilation of the left lateral ventricle secondary to volume loss. Similar appearance of hypoattenuation involving the anterior right basal ganglia. Calvarium and skull base appear intact. Nonspecific pa rtial opacification of the mastoid air cells. IMPRESSION IMPRESSION: No acute intracranial hemorrhage. Hypoattenuation along the anterior right basal ganglia is unchanged since the out side facility CT earlier same day, and could represent potentially an acute lacunar infarct, sequel a of hypoxic-ischemic injury, or toxic metabolic process such a s carbon monoxide toxicity. Remote infarcts of the left frontal, parietal, and tem poral lobes as well as of the right parietal lobe and right basal ganglia with as sociated ex vacuo dilation of the left lateral ventricle. Findings were discussed with Ana Burns MD at 2118 on Mar. I personally viewed and interpreted these images and I have reviewed and approved this report. aPTT Coag (PPP) 27.0 OT - s 03-21-2020 [facility] [Time] [facility] ([id number]) INR Coag (Bld) 1.0 OT - {INR} 03-21-2020 [facility] [Relative time] [facility] ([id number]) Interpretation and Normal 03-21-2020 [facility] review of laboratory MEDICAL results [place] ([facility]) PT Coag (PPP) [Time] 13.5 OTH - s 0 [facility] Basophils (Bld) <0.04 0 - 0.09 10*3/uL 03-21-2020 [facility] [#/Vol] [facility] ([facility]) Basophils/100 WBC 0.1 % 03-21-2020 [facility] (Bld) [facility] ([facility]) DIFF STATUS Electronic 03-21-2020 [facility] Differential [facility] ([facility]) Eosinophils (Bld) <0.04 0 - 0.48 10*3/uL 03-21-2020 [facility] [#/Vol] [facility] ([facility]) Eosinophils/100 WBC 0.1 % 03-21-2020 [facility] (Bld) [facility] ([facility]) Erythrocyte 13.0 10.9 - % 03-21-2020 [facility] distribution width 14.3 M EDICAL (RBC) [Ratio] CENTER ([facility]) Hematocrit (Bld) 46.2 39.6 - % 03-21-2020 [facility] [Volume fraction] 48.8 ME DICAL [place] ([facility]) Hemoglobin (Bld) 15.2 13.4 - g/dL 03-21-2020 [facility] [Mass/Vol] 16.8 [facility] ([facility]) Immature 0.07 <=0.08 K/uL 03-21-2020 [facility] granulocytes (Bld) M EDICAL [#/Vol] [facility] ([facility]) Immature 0.4 % 03-21-2020 [facility] granulocytes/100 WBC MEDICAL (Bld) [facility] ([facility]) Interpretation and Abnormal 03-21-2020 [facility] review of laboratory MEDICAL results [place] ([facility]) Lymphocytes (Bld) 0.96 0.83 - K/uL 03-21-2020 [facility] [#/Vol] 3.57 [facility] ([facility]) Lymphocytes/100 WBC 5.6 % 03-21-2020 [facility] (Bld) [facility] ([facility]) MCH (RBC) [Entitic 29.3 26.1 - pg 03-21-2020 [facility] mass] 33.3 [facility] ([facility]) MCHC (RBC) 32.9 31.9 - g/dL 03-21-2020 [facility] [Mass/Vol] 36.5 [facility] ([facility]) MCV (RBC) [Entitic 89.2 79 - fL 03-21-2020 [facility] vol] 94.5 [facility] ([facility]) Monocytes (Bld) 0.13 0.24 - K/uL Low 03-21-2020 [facility] [#/Vol] 0.93 [facility] ([facility]) Monocytes/100 WBC 0.8 % 03-21-2020 [facility] (Bld) [facility] ([facility]) Neutrophils (Bld) 15.85 1.57 - K/uL High 03-21-2020 [facility] [#/Vol] 6.19 [facility] ([facility]) Nucleated RBC/100 0.0 <=0.2 % 03-21-2020 [facility] WBC (Bld) [Ratio] /100 WBC RI DICAL [place] ([facility]) Platelet mean volume 10.2 8.7 - fL 0 [facility] (Bld) [Entitic vol] 12.3 [facility] ([facility]) Platelets (Bld) 247 146 - K/uL 03-21-2020 [facility] [#/Vol] 337 [facility] ([facility]) RBC (Bld) [#/Vol] 5.18 O[facility] - 10*6/uL 03-21-2020 [facility] ([facility]) Segmented 93.0 % 03-21-2020 [facility] neutrophils/100 WBC [facility] (Bld) [facility] ([facility]) WBC (Bld) [#/Vol] 17.04 3.73 - K/uL High 03-21-2020 [facility] 10.1 [facility] ([facility]) ANALYSIS DATE AND 03/21/2020 21:26 03-21 [facility] TIME [facility] ([facility]) Interpretation and Abnormal 03-21-2020 [facility] review of laboratory MEDICAL results [place] ([facility]) Lactate [Moles/Vol] 3.57 0.5 - mmol/L High 03-21-2020 [facility] 1.6 [facility] ([id number]) Oxygen/Inspired gas 21 % 03-21-2020 [facility] setting [Volume MEDI ERNST Fraction] Ventilator CENTER ([id number]) RECEIVED DATE AND 03/21/2020 21:24 03-21 [facility] TIME [facility] ([id number]) SAMPLE SOURCE Venous 03-21-2020 [facility]66710[facility] TEST PANEL BGLACT 03-21-2020 [facility] (91519) Vital Signs Vital Sign Description Value / Unit Date Location The following section is limited to 5 en tries per type and includes entries from the following time range: 20200406 - 20200310 0. Body Temperature 97.2 [degF] 04-06-2020 [facility] (44505) Body weight 92 kg 03-25-2020 [facility]IC [facility] (70382) BP Diastolic 55 mm[Hg] 04-06-2020 [facility] [place] (07749) BP Systolic 106 mm[Hg] 04-06-2020 [facility] [place] (27987) Pulse (Heart Rate) 61 /min 04[facility]06-[facility] (50082) Pulse Oximetry 93 % 04-06-2020 [facility] (69637) Respiratory Rate 16 /min 04-06-2020 [facility] ([id number]) Encounters Date Type Reason Provider Location 03-21-2020 - Evaluation and DILLON PEREZ Facility:[facility] 04-06-2020 management of [facility] inpatient NEUROLOGY CONSULT LOYD SHANKS 03-21-2020 - Evaluation and Cerebrovascular Tan Blue B8E 04-06-2020 [facility] Comment: Altered mental status 06-21-2020 - 06-21-2020 Patient encounter External Pro vider [facility] procedure 06-21-2020 Results Only External Provider External-N onCCF Procedures Procedure Name Date Provider Location EXTERNAL IMAGING 06-21-2020 External Provider [facility] ([id number]) Assay of magnesium 04-06-2020 Kameron C [facility] (39696) Assay of phosphorus inorganic 04-06-2020 Kameron C [facility] (55849) CBC AND ELECTRONIC DIFF 04-06-2020 [facility] (87134) Complete blood count with 04-06-2020 [facility] white cell differential, CENTER (78337) automated Creatinine blood 04-06-2020 Kameron C [facility] (63732) Procalcitonin (pct) 04-06-2020 [facility] (03019) Urnls dip stick/tablet 04-05-2020 [facility] auto microscopy [facility] ( 17277) Plain chest X-ray 04-05-2020 [facility] Ericka [facility] ICA CENTER (53398) Assay of magnesium 04-05-[address] [facility] (91263) Assay of phosphorus inorganic 04-05-2020 Carlychauncey Morrison [facility] (70823) CBC AND ELECTRONIC DIFF 04-05-2020 [facility] (58589) Complete blood count with 04-05-2020 [facility] white cell differential, CENTER (49183) automated Creatinine blood 04-05-2020 Kameron C [facility] (72960) Assay of magnesium 04-04-2020 Kameron C [facility] (03209) Assay of phosphorus inorganic 04-04-2020 [facility] (83234) Creatinine blood 04-04-2020 [facility] (04066) NOVEL CORONAVIRUS PCR 04-04-2020 Carly [facility] (41818) Assay of magnesium 04-04-[address] [facility] (25862) Assay of phosphorus inorganic 04-04-2020 Carly [facility] (46527) CBC AND ELECTRONIC DIFF 04-04-2020 [facility] (09139) Complete blood count with 04-04-2020 [facility] white cell differential, CENTER (42102) automated Creatinine blood 04-04-2020 [facility] (62544) Assay of magnesium 04-03-2020 [facility] (87715) Assay of phosphorus inorganic 04-03-2020 [facility] (19217) Creatinine blood 04-03-2020 [facility] (24401) Assay of magnesium 04-03-2020 [facility] (67106) Assay of phosphorus inorganic 04-03-2020 [facility] (95322) CBC AND ELECTRONIC DIFF 04-03-2020 [facility] (67692) Complete blood count with 04-03-2020 [facility] white cell differential, CENTER (14377) automated Creatinine blood 04-03-2020 [facility] (08001) Assay of magnesium 04-02-2020 [facility] (22510) Assay of phosphorus inorganic 04-02-2020 [facility] (92985) Creatinine blood 04-02-2020 [facility] (95570) Iadna s aureus amplified 04-02-2020 [facility] tq CENTER (21063) Assay of magnesium 04-02-2020 [facility] (70345) Assay of phosphorus inorganic 04-02-2020 [facility] (12562) CBC AND ELECTRONIC DIFF 04-02-2020 [facility] (60684) Complete blood count with 04-02-2020 [facility] (14347) automated Creatinine blood 04-02-2020 [facility] (80682) Procalcitonin (pct) 04-02-2020 Rams[facility] Ericka Flanagan [facility] (81630) Assay of magnesium 04-01-2020 [facility] (56310) Assay of phosphorus inorganic 04-01-2020 [facility] (93785) Creatinine blood 04-01-2020 [facility] (80848) Plain chest X-ray 04-01-2020 Carly [facility] (74431) Assay of magnesium 04-01-2020 [facility] (77085) Assay of phosphorus inorganic 04-01-2020 [facility] (75344) CBC AND ELECTRONIC DIFF 04-01-2020 [facility] (58795) Complete blood count with 04-01-2020 [facility] white cell differential, CENTER (20756) automated Creatinine blood 04-01-2020 [facility] (11570) Assay of magnesium 03-31-2020 [facility] (14344) Assay of phosphorus inorganic 03-31-2020 [facility] (48545) Creatinine blood 03-31-2020 [facility] (01258) Assay of magnesium 03-31-2020 [facility] (76629) Assay of phosphorus inorganic 03-31-[facility] (84683) CBC AND ELECTRONIC DIFF 03-31-2020 [facility] (58633) Complete blood count with 03-31-2020 [facility] white cell differential, CENTER (82626) automated Creatinine blood 03-31-2020 [facility] (12943) Assay of magnesium 03-30-2020 [facility] (00694) Assay of phosphorus inorganic 03-30-2020 [facility] (41479) Creatinine blood 03-30-2020 [facility] (84503) Assay of magnesium 03-30-2020 [facility] (53127) Assay of phosphorus inorganic 03-30-2020 [facility] (00989) CBC AND ELECTRONIC DIFF 03-30-2020 [facility] (44434) Complete blood count with 03-30-2020 [facility] white cell differential, CENTER (60926) automated Creatinine blood 03-30-2020 [facility] (16054) Assay of magnesium 03-29-2020 [facility] (83325) Assay of phosphorus inorganic 03-29-2020 [facility] (71713) Creatinine blood 03-29-2020 [facility] (82739) Fluoroscopy of esophagus 03-29-2020 Will [facility] (09033) SPEECH MODIFIED BARIUM 03-29-2020 [facility] (31667) CBC AND ELECTRONIC DIFF 03-29-2020 [facility] (62927) Complete blood count with 03-29-2020 [facility] white cell differential, CENTER (44544) automated Assay of magnesium 03-29-2020 [facility] (92938) Assay of phosphorus inorganic 03-29-2020 [facility] (19273) Creatinine blood 03-29-2020 [facility] (18849) Prothrombin time 03-29-2020 Goldy Gonzalez [facility] (00093) Diagnostic radiography of 03-28-2020 Tayo Rojas [facility] CENTER (45159) Assay of magnesium 03-28-2020 [facility] (78008) Assay of phosphorus inorganic 03-28-2020 [facility] (66177) Creatinine blood 03-28-2020 [facility] (16568) Assay of magnesium 03-28-2020 [facility] (03399) Assay of phosphorus inorganic 03-28-2020 [facility] (21400) CBC AND ELECTRONIC DIFF 03-28-2020 [facility] (46331) Complete blood count with 03-28-2020 [facility] white cell differential, CENTER (41806) automated Creatinine blood 03-28-2020 [facility] (57255) Assay of magnesium 03-27-2020 [facility] (49243) Assay of phosphorus inorganic 03-27-2020 [facility] (15585) CBC AND ELECTRONIC DIFF 03-27-2020 [facility] (00964) Complete blood count with 03-27-2020 [facility] white cell differential, CENTER (62179) automated Creatinine blood 03-27-2020 [facility] (26392) Assay of magnesium 03-26-2020 [facility] (93883) Assay of phosphorus inorganic 03-26-2020 [facility] (11878) Creatinine blood 03-26-2020 [facility] (86426) EXTRA MICRO 03-26-2020 [facility] (19318) URINALYSIS REFLEX TO CULTURE 03-26-2020 [facility] (97059) Urnls dip stick/tablet 03-26-2020 [facility] reagent auto microscopy CENTER ( 53044) CT of chest 03-26-2020 Will [facility] (59274) CT of abdomen and pelvis 03-26-2020 Will [facility] (58612) EXTRA DARK GREEN TOP 03-26-2020 [facility] (22720) EXTRA TUBES 03-26-2020 [facility] (59402) Assay of magnesium 03-26-2020 Kameron Barnett [facility] (30721) Assay of phosphorus inorganic 03-26-2020 Kameron C [facility] (03992) CBC AND ELECTRONIC DIFF 03-26-2020 [facility] (50318) Complete blood count with 03-26-2020 [facility] white cell differential, CENTER (32805) automated Creatinine blood 03-26-2020 [facility] (69859) Diagnostic radiography of 03-25-2020 [facility] (31649) Echocardiography 03-25-2020 [facility] enter (86898) Diagnostic radiography of 03-25-2020 Will [facility] abdomen [facility] (01704) Transthoracic 03-25-2020 [facility] echocardiography CENTER (63112) Assay of lactate 03-25-2020 [facility] (12357) Hemoglobin glycosylated a1c 03-25-2020 [facility] (07134[facility] Lipid panel 03-25-2020 Lamar [facility] (69880) EXTRA DARK GREEN TOP 03-25-2020 [facility] (55298) EXTRA LIGHT BLUE TOP 03-25-2020 [facility] Rafia [facility] (21124) EXTRA SST GOLD TOP 03-25-2020 [facility] Rafia [facility] (75570) EXTRA TUBES 03-25-2020 [facility] Rafia [facility] DICAL CENTER (04123) CBC AND ELECTRONIC DIFF 03-25-2020 [facility] (41090) Complete blood count with 03-25-2020 [facility] white cell differential, CENTER (06606) automated Creatinine blood 03-25-2020 [facility] (17489) Lipid 1996 panel - Serum or 03-25-2020 [facility] Plasma [facility] (37954) MRI of brain and brain stem 03-25-2020 Lamar Daly [facility] (88820) Duplex scan veins of upper 03-24-2020 [facility] (84145) Assay of ammonia 03-24-2020 [facility] (66793) Ultrasonography of abdomen 03-24-2020 Will [facility] (24836) Assay of lactate 03-24-2020 [facility] (22150) CBC AND ELECTRONIC DIFF 03-24-2020 [facility] (03068) Complete blood count with 03-24-2020 [facility] white cell differential, CENTER (54765) automated Creatinine blood 03-24-2020 [facility] (95683) Culture bct isol&prsmptv id 03-24-2020 [facility] isolate ea urine CENTER (56296) GENERAL PROCEDURE 03-23-2020 [facility] (35693) Drug screen quantitative 03-23-2020 Clotilde Vickers [facility] vancomycin CENTER (62005) Assay of lactate 03-23-2020 [facility] (55208) Carboxyhemoglobin 03-23-2020 Will C [facility] ICAL quantitative CENTER (70868) EXTRA LIGHT BLUE TOP 03-23-2020 [facility] (41616) EXTRA LAVENDER TOP 03-23-2020 [facility] (74970) EXTRA MINT GREEN TOP 03-23-2020 [facility] (71792) EXTRA TUBES 03-23-2020 [facility] DICAL CENTER (69118) CBC AND ELECTRONIC DIFF 03-23-2020 [facility] (18059) Complete blood count with 03-23-2020 [facility] white cell differential, CENTER (37619) automated Creatinine blood 03-23-2020 [facility] (05960) EXTRA STERILE 03-22-2020 [facility] DICAL CENTER (32876) EXTRA TUBES 03-22-2020 [facility] DICAL CENTER (85111) Cell count misc body fluids 03-22-2020 [facility]an T [facility] [facility] w/differential count CENTER (432 10) Cell count miscellaneous body 03-22-2020 Rishan T Wes [facility] CENTER (10029) 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 03-22-2020 [facility] T Wes [facility] multiple subtypes 12-25 CENTER ( 31185) Glucose body fluid other than 03-22-2020 [facility] T Wes [facility] blood [place] (03378) Iaad ia cryptococcus [facility] neoformans CENTER (96424) Lumbar puncture using 03-22-2020 Will Ericka Flanagan [facility] fluoroscopic guidance CENTER (43 210) GENERAL PROCEDURE 03-22-2020 Cathy Mortensen [facility] (50881) Assay of lactate 03-22-2020 Will Ericka Flanagan [facility] (01327) Assay of folic acid serum 03-22-2020 [facility] (20451) CBC AND ELECTRONIC DIFF 03-22-2020 [facility] CENTER (82045) Complete blood count with 03-22-2020 [facility] white cell differential, CENTER (41164) automated Creatinine blood 03-22-2020 [facility] (33732) Cyanocobalamin vitamin b-12 03-22-2020 [facility] (97650) Drug test def 1-7 classes 03-22-2020 [facility] (08241) PROCEDURE - LUMBAR PUNCTURE 03-22-2020 [facility] (47944) Blood gases, venous 03-22-2020 [facility] MEDICAL measurement CENTER (80504) Assay of ammonia 03-21-2020 [facility] (18261) Bacteria identified in Blood 03-21-2020 - [facility] by Culture 03-21-2020 [place] (98492) NOVEL CORONAVIRUS PCR 03-21-2020 [facility] (38300) Drug tst prsmv instrmnt chem 03-21-2020 [facility] analyzers pr date CENTER (82220) EXTRA MICRO 03-21-2020 [facility] MEDIC AL CENTER (24190) URINALYSIS REFLEX TO CULTURE 03-21-2020 [facility] (81080) Urnls dip stick/tablet 03-21-[address] [facility] MEDICAL reagent auto microscopy CENTER ( 95024) Plain chest X-ray 03-21-2020 [facility]AL CENTER (56606) Assay of lactate 03-21-2020 [facility] (52989) Assay of magnesium 03-21-2020 [facility] (41836) Assay of thyroid stimulating 03-21-2020 [facility] hormone tsh CENTER (59912) Assay of troponin 03-21-2020 [facility] ICAL quantitative CENTER (14561) Bilirubin direct 03-21-2020 [facility]ish[facility] T Wes [facility] (34233) Calcium total 03-21-2020 David J Haertling [facility] (74373) CBC AND ELECTRONIC DIFF 03-21-2020 [facility] (83280) Complete blood count with 03-21-2020 Rishan T Wes [facility] white cell differential, CENTER (21827) automated Comprehensive metabolic panel 03-21-2020 Rishan T Wes [facility] (84585) Creatine kinase total 03-21-2020 Rishan T Wes [facility] (07152) Drug test def 1-7 classes 03-21-2020 - Rishan T Wes [facility] 03-21-2020 CENTER (82898) GOLD TOP TUBE 03-21-2020 Rishan T Wes [facility] (58890) LAVENDER TOP TUBE 03-21-2020 [facility] (40258) LT BLUE TOP TUBE 03-21-2020 Rishan T Wes [facility] (13174) MINT GREEN TOP TUBE 03-21-2020 Rishan T Wes [facility] (65220) Prothrombin time 03-21-2020 Rishan T Wes [facility] (63548) RAINBOW DRAW 03-21-2020 Rishan T Wes [facility] (37508) Thromboplastin time partial 03-21-2020 Rishan T Wes [facility] plasma/whole blood CENTER (79204 ) Standard ECG 03-21-2020 Rishan T Wes [facility] (98618) CT of entire head 03-21-2020 Rishan T Wes [facility] (67741) Glucose measurement, blood 03-21-2020 Tan Blue [facility] (82484) Colonoscopy 04-01-[address] [facility] (77210) Plan of Treatment Plan Description Date Location LIPID SCREENING LIPID SCREENING 03-25-2025 [facility] (28225) COLONOSCOPY COLONOSCOPY 04-01-[address] [facility] (37709) ADVANCE DIRECTIVE ADVANCE DIRECTIVE 11-15-2021 [facility] inic DISCUSSION DISCUSSION (38118) LIPID SCREEN LIPID SCREEN 09-07-[address] [facility] (29576) PROSTATE CANCER PROSTATE CANCER 09-07-[address] [facility] SCREENING DISCUSSION SCREENING DISCUSSION (04908 ) Office Visit 06/18/2020 Office Visit 06-18-2020 - Neurolog ical Neurology Randolph Walters, 06-18-2020 Multi- e[facility]ty Care DO [address] [facility] [address] [place] [address] INFLUENZA VACCINE no information 06-08-2020 - [facility] (Season Ended) 2020 CENTER (22545) DIABETES SCREEN DIABETES SCREEN 11-06-[address] [facility] (87400) ABDOMINAL AORTIC ABDOMINAL AORTIC 2019 [facility] ANEURYSM HIGH RISK ANEURYSM HIGH RISK CENTER (38 210) SCREEN SCREEN PNEUMOCOCCAL VACCINE PNEUMOCOCCAL VACCINE 2019 [facility] SERIES (1 of 2 - PCV13) SERIES (1 of 2 - PCV13) CENTER (11544) PNEUMOVAX AGE 65 AND PNEUMOVAX AGE 65 AND 2019 [facility] OVER WITH 5YR LOOKBACK OVER WITH 5YR LOOKBACK (4 2759) (#1) (#1) ANNUAL PCP TEAM CHRONIC ANNUAL PCP TEAM CHRONIC 07-19-[address] [facility] DISEASE VISIT DISEASE VISIT (29464) COLORECTAL CANCER COLORECTAL CANCER 2004 [facility] SCREENING DISCUSSION SCREENING DISCUSSION CENTER (07804) PROSTATE CANCER PROSTATE CANCER 2004 [facility] SCREENING DISCUSSION SCREENING DISCUSSION CENTER (46916) SHINGRIX VACCINE (1 of SHINGRIX VACCINE (1 of [facility] 2) 2) (46202) ZOSTER (SHINGLES) ZOSTER (SHINGLES) 2004 [facility] (1 of 2) VACCINE (1 of 2) CENTER (85810) TDAP (ADULT) TDAP (ADULT) 1973 [facility] (98617) DTAP,TDAP,TD (1 - Tdap) DTAP,TDAP,TD (1 - Tdap) [address] [facility] (60182) HEPATITIS C SCREENING HEPATITIS C SCREENING 1972 [facility] (88915) SPIROMETRY SPIROMETRY [address] [facility] (20308) TETANUS TETANUS [facility]19729) HEPATITIS C VIRUS HEPATITIS C VIRUS [facility]CRE[facility] (30996) BLOOD CULTURE BLOOD CULTURE [facility] Microbiology Urgent CENTER (4321 0) 04/04/2020 6:45 PM EDT URINE CULTURE URINE CULTURE [facility] Microbiology Routine CENTER (432 10) 04/04/2020 6:45 PM EDT CELL COUNT & DIFF, CSF CELL COUNT & DIFF, CSF [facility] Fluids STAT 03/22/2020 CENTER (4 3210) 11:57 AM EDT EXTRA MINT GREEN TOP EXTRA MINT GREEN TOP [facility] Lab Routine 03/25/2020 CENTER (4 3210) 5:09 AM EDT EXTRA TUBES EXTRA TUBES Lab Routine [facility] 03/25/2020 5:09 AM EDT CENTER (4 1820) Immunizations Vaccine Notes Status Date Location INFLUENZA VACCINE influenza virus (completed) 08-23-2016 [facility] (Season Ended) vaccine, unspecified CENTE R (17013) formulation Influenza Seasonal influenza, injectable, (completed) 08-23-[address] [facility] Inj Quad Age 6 Mo - quadrivalent, contains (04577) 64 Yrs preservative Payers Payer Name Policy Number Location MEDICARE, MEDICARE [id number] BLAINE CROWLEY MEDICARE A AND B [id number] [facility] ([id number]) [id number] [facility] ([id number]) Social History Type Social History Description Date Locat ion Tobacco smoking status Unknown if ever smoked 03-24-2020 [facility] CENTER (91134) Sex Assigned At Not on file [facility] (39768) Exposure to SARS-CoV-2 Unable to assess [facility] MEDICAL (event) CENTER (11502) Tobacco smoking status Former smoker 10-22-[address] [facility] (78420) [place] Tobacco use and exposure Never used 10-22-2018 [facility] (45798) Alcohol intake Current non-drinker of 10-22-[address] [facility] (87602) alcohol (finding) Tobacco Comment 6 years ago 07-19-[address] [facility] (51712) The following information is from the original human readable contentNo Social History Records Found Reason for Referral Status Reason Specialty Diagnoses / Referred By Referred To Procedures Contact Contact New Request Social Work Diagnoses Cerebrovascular accident (CVA), unspecified mechanism Loyd Shanks MD [address] [place] [address] Status Reason Specialty Diagnoses / Referred By Referred To Procedures Contact Contact New Request Neurology Diagnoses Cerebrovascular accident (CVA), unspecified mechanism Goldy Gonzalez MD M112 [facility] [address] [place], [place] [address] Status Reason Specialty Diagnoses / Procedures Referred By C ontact Referred To Contact Casey Baca MD [address] [facility] [address] [place] [address] Phone: Status Reason Specialty Diagnoses / Referred By Referred To Procedures Contact Contact New Request Goldy Gnozalez MD M112 [facility] [address] [place], [place] [address] Status Reason Specialty Diagnoses / Referred By Referred To Procedures Contact Contact New Request Procedures Goldy Gonzalez MD RUQ/LIVER/GB M112 [facility] [address] [place], [place] [address] Status Reason Specialty Diagnoses / Referred By Referred To Procedures Contact Contact Pending Review Procedures Tan Blue MD [address] [place] [address] Hospital Course Carly Morrison MD - 04/06/2020 10:33 AM EDT Discharge Summary Name: Blaine Crowley Age: 64 y.o. Birthday: 1955 Admit Date: 03/21/2020 8:55 PM Discharge Date: 04/06/20 Discharge Time: 10:15 AM Discharge Unit: [id number] Admission Information Admitting Physician: Mercy Luque MD Discharge Information Discharge Physician: Loyd Shanks MD Problem List Altered Mental Status Dysphagia Hospital Acquired Pneumonia Urinary Incontinence Lactic Acidosis- Resolved Brief Summary of Hospital Course for Discharge Summary: Dear Doctors, I recently had the opportunity to care for Blaine Crowley during his recent hospital stay at [facility]. ? As you may know, Blaine Crowley, is a 64 y.o. male with a past medical history of stroke with residual right-sided hemiparesis (2012), seizure disorder on keppra, and renal cell carcinoma s/p nephrectomy who presented to [facility] on 03/21/2020 with altered mental status due to an acute R-sided basal ganglia stroke. ? Altered Mental Status: Patient presented with confusion and aphasia elevated from baseline of fragmented speech and right-sided hemiparesis. CT scans on admission showed no acute process, leading to concern for a stroke vs infectious process vs seizure, given the patient's history. Patient was startedon empiric antibiotics for meningitis, dexamethasone, and continued on keppra. EEG was normal, and CSF was unremarkable. Neurology was consulted, and MRI on 03/25 showed evidence of an acute basal ganglia stroke with possible subsequent seizure activity and extended post-ictal state. Patient was started on aspirin 81mg every day, atorvastatin 80mg, and his keppra was increased from 500mg to 1000mg. Due to negative workup for infection, all empiric antibiotics were discontinued. Dysphagia: During admission, bedside swallow revealed new dysphagia. NG tube with dobhoff placed on,and feeds were titrated per nutrition recommendations. Throughout the hospitalization, patient has progressed with PO feeds. He is not yet meeting calorie goals with PO meals alone, requiring him to have supplemental tube feeds. Dobhoff present on NG. Would recommend ongoing evaluation for permanent PEG placement. ? Pneumonia: Patient developed a cough along with an uptrending WBC count and new basilar airspace opacities on CXR. Due to concern of possible aspiration pneumonia, he was started on Unasyn on 04/02. Dueto fever on 04/05, antibiotics were escalated to zosyn. He will discharge with a 5 day course of levaquin for hospital acquired pneumonia. Urinary Incontinence: Throughout hospitalization, patient had urinary incontinence with occasional urinary retention. Continue to monitor bladder volumes with bladder scan Q4. Straight cath or mcclellan ifindicated. ? Stage 1 Pressure Injury: Patient has a bilateral stage 1-2 pressure injury on his buttocks noticed on 04/03/20. Elevated Lactate (resolved): Patient's elevated lactate persisted throughout his admission, despite antibiotic treatment and improvement of symptoms. Given his history of renal cell carcinoma, this raised concerns for underlying, smoldering malignancy. RUQ ultrasound demonstrated hepatosteatosis. CT chest and CT A/P on 03/26 was unremarkable. Last measured lactate on 03/25/20 was 2.2, down from 3.5 on admission. Elevated levels most likely due to hepatosteatosis. ? ? Media Information ? Document Information ? ? Physical Exam on the Date of Discharge: Vitals: 04/06/20 0811 BP: 141/71 Pulse: 62 Resp: 16 Temp: 97.9 ?F (36.6 ?C) Wt Readings from Last 1 Encounters: 03/25/20 92 kg (202 lb 13.2 oz) General: Resting comfortably. Otherwise nonverbal. HEENT: Conjunctiva non-injected, sclera non-icteric. EOMI. Dobhoff tube in place. CV: Sinus bradycardia, no murmurs, rubs, or gallops appreciated. Resp: Lungs clear to auscultation bilaterally, no increased work of breathing, no wheezes or crackles appreciated. GI: Abdomen soft, non-distended, non-tender. Bowel sounds present. Neuro: Minimal verbal interaction. Wiggles L fingers and toes on command. Extremities: Warm and well perfused. No edema present. SCDs in place. Skin: stage 1-2 pressure injury present on bilateral buttocks. 2-3cm blister on R buttock. ? At the time of discharge the patient's mental status was awake and alert, oriented x 0 due to inability to communicate verbally. Diet was DIET CARDIAC - VERY LOW SODIUM Diet Soft and Bite Sized (IDDSI 6); Liquid Moderately Thick (IDDSI 3) / Honey ? Upon discharge the patient's code status: Full Code It has been my pleasure participating in this patient's care. Please contact me with any questions or concerns regarding his hospital stay. ? Sincerely, Carly Morrison MD Summary of last selected lab results and date obtained: Lab Results Component Value Date WBC 11.89 (H) 04/06/2020 HGB 11.6 (L) 04/06/2020 HCT 36.0 (L) 04/06/2020 PLATELET 221 04/06/2020 MCV 91.6 04/06/2020 Lab Results Component Value Date SODIUM 137 04/06/2020 POTASSIUM 4.3 04/06/2020 CHLORIDE 103 04/06/2020 CO2 23 04/06/2020 BUN 22 04/06/2020 CREATSERUM 1.28 04/06/2020 GLUCOSE 109 (H) 04/06/2020 Lab Results Component Value Date ALT 33 03/21/2020 AST 39 03/21/2020 ALKPHOS 44 03/21/2020 BILITOTAL 0.6 03/21/2020 BILIDIRECT 0.1 03/21/2020 Brief Summary of Labs for Discharge Summary: Please measure K, Mg, and PO4 daily to monitor nutrition Discharge Orders AMB REFERRAL TO NEUROLOGY Current Outpatient Meds: Medication List for when you go home START taking these medications aspirin 81 MG CHEW chewable tablet 1 tablet by Per NG tube route daily. atorvastatin 80 MG TABS 1 tablet by Per NG tube route at bedtime. Commonly known as: LIPITOR CUSTOM MEDICATION Please check a Mg, K, and PO4 daily and supplement as necessary levETIRAcetam 100 MG/ML oral solution 10 mL by Per NG tube route every 12 hours. Commonly known as: KEPPRA levoFLOXacin 750 MG TABS Take 1 tablet by mouth daily for 5 days. Commonly known as: LEVAQUIN Start taking on: April 07, 2020 multivitamin TABS Take 1 tablet by mouth daily. Osmolite 1.2 Ernst LIQD 95 mL/hr by Nasogastric route every 24 hours. polyethylene glycol 17 g PACK packet 1 packet by Per NG tube route daily. Commonly known as: MIRALAX Tamsulosin HCl 0.4 MG CAPS Take 1 capsule by mouth daily. Commonly known as: FLOMAX water po liquid (free water) SOLN 30 mL by Per NG tube route every 6 hours. [address]: [address] [place] [id number] Associated attestation - Loyd Shanks MD - 04/06/2020 12:21 PM EDTAttending Attestation : I have seen and examined Blaine Crowley on 04-06-20 independently of the hospital medicine staff team and discussed with them all pertinent findings. I have personally reviewed all available clinical data related to today's encounter. I have been fully involved in formulation of the above-documented a ssessment and plan and it has been thoroughly discussed with the residents/interns. At time of discharge Blaine Crowley was overall stable, no new complaints or concerns. Time spent on discharge was 27 minutes. Signed, Loyd Shanks MD Chocolatier of Clinical medicine Department of Internal Medicine Division of Hospital Medicine documented in this encounter Discharge Instructions Discharge Instr - Sandy Negrete RN - 04/04/2020 10:54 AM EDT? Incentive Spirometer Do your breathing exercises with your incentive spirometer every 1 to 2 hours when you are awake as instructed. This will help open the air sacs in your lungs and may reduce future problems. Additional Sandy Kapadia RN - 03/22/2020Miscellaneous Education Altered Mental Status: Care Instructions Your Care Instructions Altered mental status is a change in how well your brain is working. As a result, you may be confused, be less alert than usual, or act in odd ways. This may include seeing or hearing things that aren't really there (hallucinations). A mental status change has many possible causes. For example, it may be the result of an infection, an imbalance of chemicals in the body, or a chronic disease such as diabetes or COPD. It can also be caused by things such as a head injury, taking certain medicines, or using alcohol or drugs. The doctor may do tests to look for the cause. These tests may include urine tests, blood tests, andimaging tests such as a CT scan. Sometimes a clear cause isn't found. But tests can help the doctor rule out a serious cause of your symptoms. A change in mental status can be scary. But mental status will often return to normal when the causeis treated. So it is important to get any follow-up testing or treatment the doctor has suggested. The doctor has checked you carefully, but problems can develop later. If you notice any problems or new symptoms, get medical treatment right away. Follow-up care is a kim part of your treatment and safety. Be sure to make and go to all appointments, and call your doctor if you are having problems. It's also a good idea to know your test results and keep a list of the medicines you take. How can you care for yourself at home? ? Be safe with medicines. Take your medicines exactly as prescribed. Call your doctor if you think you are having a problem with your medicine. ? Have another adult stay with you until you are better. This can help keep you safe. Ask that person to watch for signs that your mental status is getting worse. When should you call for help? [id number] anytime you think you may need emergency care. For example, call if: ? You passed out (lost consciousness). Call your doctor now or seek immediate medical care if: ? Your mental status is getting worse. ? You have new symptoms, such as a fever, chills, or shortness of breath. ? You do not feel safe. Watch closely for changes in your health, and be sure to contact your doctor if: ? You do not get better as expected. Where can you learn more? Go to http://[email or web address]/patiented. Enter J452 in the search box to learn more about 'Altered Mental Status: Care Instructions.' Interested in seeing a video go to [email or web address]/videolibrary to see all video content. Current as of: August 27, 2019?Content Version: 12.5 ? [employer]. Care instructions adapted under license by your healthcare professional. If you have questions abouta medical condition or this instruction, always ask your healthcare professional. [employer] disclaims any warranty or liability for your use of this information. ? Home Medicines-Antibiotic Take the antibiotic that your doctor prescribed for you until all the medicine is gone. Please be sure to complete the entire course of antibiotics your doctor ordered. Even if you are feeling better, you need to finish all of the medicine. Additional Contacts: ? Evening and Weekend Contacts If you have questions or concerns during evening, weekend, or holiday hours, please call: -[facility] assistant press operator offset at [phone]. -[facility] assistant press operator offset at [phone] Ask the assistant press operator offset to page the on-call doctor for Medicine 6, the service that was responsible for your care while you were in the hospital. If you having an emergency, call 911. Cindy Rodriguez, [employer] [phone]. I am available Mon-Fri 8-5 (excluding holidays). Please call with any questions regarding your discharge instructions. documented in this encounter History of Present Illness Josiane Campos RN - 04/06/2020 3:10 PM EDTReported given to medic and nurse at facility. DENICE and AVS faxed to facility. IV removed with catheter intact, no bleeding observed. Morris Campos RN Supriya Wilson LSW - 04/06/2020 11:26 AM EDT Social Work Final Discharge Plan and Transportation Final Discharge Planning Discharge Disposition: Longterm Facility Services at Discharge: Longterm, Physical Therapy, Speech Therapy, Occupational Therapy Name For Handoff: [facility] Phone For Handoff: [phone] Fax For Handoff: Additional Community Agency Name(s): no Destination - Selection Complete Service Provider Request Status Selected Services Address Phone Number Fax Number [facility] [address] [place], [place] [id number] ? Plan Plan: DIscharge to Longterm Facility Patient/Family In Agreement With Plan: yes Advisor Advocate Angel Co Founder Called: Yes Name of Transport Company: [employer] (ALS/BLS transport) ETA of Ambulance: 230-330pm Transfer Mode: gurney Mode of Transfer: ambulance, BLS Accompanied By: EMS Patient medically stable for discharge per physician/medical team. SW confirmed with SNF that they are able to accept the patient this date. Insurance pre- certification is not required and an Exemptionis not required. SW arranged transport as indicated above, ETA is 230pm-330pm. The patient has no specialized equipment needs for transportation. AVS/DENICE completed from a SW standpoint. SW updated the bedside RN, CCM, facility and patient/food service representative of the discharge plan and transport time. Patient/Calciner Feeder remain in agreement with the discharge plan. Bedside RN to call report and fax AVS/DENICE. Ambulance form left at the community service organization director desk with a request for a printed transfer report. Discharge Instruction for Bedside RN: 1. Confirm the Ambulatory Order is in the DENICE. 2. Print the DENICE and AVS. 3. Print the Discharge Summary for facilities (if available). 4. Fax DENICE, AVS and Discharge Summary (when applicable) to agency or facility. 5. Call the agency or facility for report. PRIYA Longoria, [facility] Medical Social Work [phone] Mario Abraham - 04/06/2020 10:29 AM EDT Acute Physical Therapy Treatment Note Frequency 5x/week for duration of hospital admission. Therapy Recommendations: Blaine Crowley would benefit at this time from continued PT services with24 hour supervision needed for mobility needs. DME recommendations: tbd with pt progression 04/06/20 1000 Subjective RN Approved Intervention as tolerated Existing Precautions/Restrictions fall (expressive aphasia, DHT) Subjective Reports Pt able to nod head yes for agreement with session Cognitive Status Examination Orientation Status (Cognition) oriented to;person Level of Consciousness alert;cooperative Able to Follow Commands (Communication) severe impairment Personal Safety and Judgment at risk behaviors demonstrated;impaired Speech speech impaired (expressive/receptive aphasia) General Pain Documentation (Adult, OB, Peds) Presence of Pain non-verbal indicator of pain/discomfort present Pain Location generalized Select Pain Scale PAINAD (Pain Assessment in Advance Dementia Scale) (Adult- Cognitively Impaired) PAINAD (Pain Assessment in Advance Dementia Scale) PAINAD Breathing 0-->normal PAINAD Negative Vocalization 0-->none PAINAD Facial Expression 2-->facial grimacing PAINAD Body Language 0-->relaxed PAINAD Consolability 0-->no need to console PAINAD Score 2 Objective Therapeutic Interventions Pt supine upon entering room. Increased time for mental processing, but ptable to nod head yes for PT treatment. Increased processing time and repetition needed for step by step cues to sit EOB. HOB elevated. Pt needing visual cue at midline to reach for hand and bed rail to assist in pulling trunk to sit up. Pt dependent with L LE management and mod A for R LE management to the EOB. Pt tolerating sitting for 10 minutes. Roughly mod A throughout for balance. Verbal cues insitting for vertical, cervical and thoracic extension. Pt attempting to use L UE to pull further to the L. Attempted to have pt keep L UE in lap, but without cues pt takes L UE laterally. Contralateralreaching activity with L UE towards R to attempt to improve sitting balance and activate core musculature. Max cues needed throughout to keep pt on task. Dependent transfer to supine. Increased anxietyseen returning to supine, decreasing amount pt able to participate. Bed placed in chair position pt able to maintain vertical with back support. Verbal cues needed for cervical extension. Pt participating in 3x12 L LE leg press with therapist resistance. Increased verbal cues and visual cues needed for pt to complete. Exercises completed to maintain strength present in L LE while OOB mobility limited. Balance Skills Assessment, Rehab Eval Sitting Balance: Static (leaning to the L) Bed Mobility Skill: Scooting/Bridging, Rehab Eval Level of [place]: Scoot/Bridge dependent (less than 25% patients effort) Physical Assist/Nonphysical Assist: Scoot/Bridge 1 person assist Bed Mobility Skill: Sit to Supine, Rehab Eval Level of [place]: Sit/Supine dependent (less than 25% patients effort) Physical Assist/Nonphysical Assist: Sit/Supine 1 person assist Bed Mobility Skill: Supine to Sit, Rehab Eval Level of [place]: Supine/Sit maximum assist (25% patients effort) Physical Assist/Nonphysical Assist: Supine/Sit 1 person assist Transfer Skill: Sit To Stand, Rehab Eval [place] (Sit-Stand Transfers) unable to assess CURRENT -[facility] Basic Mobility Inpatient Short Form Turning over in bed 1 - Total Assistance Sitting/standing from chair 1 - Total Assistance Moving from lying on back to sitting 1 - Total Assistance Moving to and from bed to chair 1 - Total Assistance Walk in hospital room 1 - Total Assistance Climbing 3-5 steps with a railing 1 - Total Assistance CURRENT AM-[facility] Mobility Raw Score 6 CURRENT AM-PAC Mobility Functional Limitation/Modifier 100.00% Currently Impaired in Basic Mobility Currently Impaired in Basic Mobility - CN Projected AM-[facility] Mobility Raw Score 10 Projected AM-[facility] Mobility Functional Limitation/Modifier 76.75% Projected Functional Impairment in Basic Mobility Clinical Impression Therapy Frequency 5 times a week PT Therapy Completed Yes PT Therapies Still to Complete 4 Initial Evaluation/Screen Completed? yes Continue care plan yes Goals Goals For Discharge Goals Goal 1 Patient will complete sit to supine and supine to sit with mod level of assist to progress to prior level of function by discharge. Progressing Max-Dep a Goal 2 Pt will complete sit to stand and stand to sit transfer with min of 2 assist with no AD to progress to prior level of function by discharge Not seen Goal 3 Patient will participate in 20 minutes of static/dynamic sitting balance activity with stand by level of assist in order to increase core strength and balance by discharge Progressing 15 min Goal 4 Patient will independently complete bilateral UE/LE therapeutic exercise program 2 sets x 15 reps inorder to increase strength for improved mobility by discharge. Progressing Risk / Benefits - additional information yes Discussed risk / benefits with patient Assessment VTE Prevention/Management On - SCD Plan Plan for next visit Progress sense of upright vertical and seating balance static/dynamic Maintain frequency yes Time In: 0958 Time Out: 1023 I used gloves, facemask and goggles in today's patient interaction. Upon discontinuation of Acute Care Physical Therapy Services or patient discharge from the hospital this note represents the current Physical Therapy Discharge Summary. Mario New, PT, DPT License # [id number] Denise Cabello OT - 04/05/2020 2:33 PM EDT Acute Occupational Therapy Treatment / Progress Note AM-PAC score(s): CURRENT AM-PAC Activity Raw Score: 8 Based on the above AM-PAC score and OT clinical judgment, discharge destination recommendation is: SNF. Patient is a good candidate for discharge to SNF due to the following barriers: Patient needs assistance with ADLs (see note below), Patient needs assistance with IADLs (see note below) and Patient needs assistance with self-care for medical condition (see note below). Equipment available at home:wheeled walker Equipment recommendations for discharge: Anticipated Equipment Needs at Discharge (OT Eval): (will recommend) Current therapy frequency recommendation(s) in acute: Therapy Frequency: 5 times a week 04/05/20 1433 Subjective RN Approved Intervention as tolerated Existing Precautions/Restrictions fall Subjective Reports Pt with increased lethargy requiring increased time to arouse; cooperative duringsession; slight increased arousal at end of session. Cognitive Status Examination Orientation Status (Cognition) oriented to;person;situation Level of Consciousness lethargic/somnolent;cooperative Able to Follow Commands (Communication) severe impairment Personal Safety and Judgment impaired;at risk behaviors demonstrated General Pain Documentation (Adult, OB, Peds) Presence of Pain denies pain/discomfort Objective Therapeutic Exercise Pt participated in therapist guided passive ROM and active assist ROM for R UE while pt was in seated EOB position; completed with dependent A; increased tone noted with shoulder flexion, continued tone noted with elbow flexion. Passive ROM and active assist ROM performed in orderto improve body awareness, soft tissue integrity, and safe positioning. RUE positioned on pillow forsupport after session. Pt tolerated neck ROM with increased tone and tightness noted with left head tilt preference; able to rotate and stretch neck to neutral position for increased functional positioning during daily activities Mobility Additional Documentation Pt requiring min to max A for EOB seated balance with left lateral lean noted and increased tone neck and hip flexion. Pt tolerated x 20 minutes EOB functional activity. Pt positioned supine with dependent A x2 and all needs met. Bed Mobility Skill: Supine to Sit, Rehab Eval Level of [place]: Supine/Sit dependent (less than 25% patients effort) Physical Assist/Nonphysical Assist: Supine/Sit set-up required;supervision;verbal cues;2 person assist Transfer Skill: Sit To Stand, Rehab Eval [place] (Sit-Stand Transfers) unable to assess BADL Evaluation Additional Documentation Yes Grooming [place] Level (Grooming) moderate assist (50% patient effort) Physical Assist/Nonphysical Assist set-up required;supervision;verbal cues;1 person assist (Pt requiring max cues and initial hand over hand A to initiate familiar grooming tasks; resistive at times. Pt able to initiate oral care and facial grooming with LUE with increased time; assist for thoroughness) Lower Body Dressing Level of [place] dependent (less than 25% patients effort) Physical Assist/Nonphysical Assist set-up required;supervision;verbal cues;1 person assist (To don bilat socks supine with dependent A. ) CURRENT AM-PAC Daily Activity Inpatient Short Form Putting on/Taking Off Lower Body Clothing 1 - Total Assistance Bathing 1 - Total Assistance Toileting 1 - Total Assistance Putting on/Taking Off Upper Body Clothing 2 - A Lot of Assistance Grooming 2 - A Lot of Assistance Eating 1 - Total Assistance CURRENT [facility] Activity Raw Score 8 CURRENT -[facility] Activity Functional Limitation/Modifier 85.69% Currently Impaired in Daily Activity -CM Assessment Assessment Narrative Pt motivated to participate in therapies and making fair progress towards goals. Pt limited by lethargy, strength, balance, tone, ROM, command following. Pt continues to require dependent A x2 for functional transfers and mod to dependent A for basic self care this date. Pt to continue to benefit from OT services to increase independence with self care and safety during functional transfers. Clinical Impression Patient Instruction safe functional transfers, independence with self care, UE ROM, positioning, neck ROM, importance of OOB functional activity Equipment Issued none Rehab Potential (OT Eval) good, to achieve stated therapy goals OT Therapy Completed Yes OT Therapies Still to Complete 3 Continue care plan yes Therapist Recommendations At Discharge Recommendations OT Services recommended at Discharge Plan Plan Narrative OT to continue to follow and progress with plan of care. Next session to focus on increasing independence with basic seated self care and functional transfers Time in: 1408 ; Time out: 1433 Upon discontinuation of Acute Care Occupational Therapy Services or patient discharge from the hospital this note represents the current Occupational Therapy Discharge Summary. I used gloves, facemask and protective eye shield in today's patient interaction. Denise Oates OTR/L License #: [id number] Pager #: [phone] Ofelia Palacios, PT - 04/05/2020 2:09 PM EDT Acute Care Physical Therapy Treatment Note Frequency: 5 x a week Recommendations: Blaine Crowley would benefit at this time from continued PT services with 24 hoursupervision needed for mobility needs. 04/05/20 1409 Subjective RN Approved Intervention as tolerated Existing Precautions/Restrictions fall Subjective Reports Pt lethargic but reports being agreeable to participate Cognitive Status Examination Orientation Status (Cognition) oriented to;person;place ([facility]) Level of Consciousness lethargic/somnolent Able to Follow Commands (Communication) severe impairment Personal Safety and Judgment impaired;at risk behaviors demonstrated General Pain Documentation (Adult, OB, Peds) Presence of Pain denies pain/discomfort Bed Mobility Skill: Supine to Sit, Rehab Eval Level of [place]: Supine/Sit dependent (less than 25% patients effort) Physical Assist/Nonphysical Assist: Supine/Sit 2 person assist;verbal cues Transfer Skill: Sit To Stand, Rehab Eval [place] (Sit-Stand Transfers) unable to assess CURRENT [facility] Basic Mobility Inpatient Short Form Turning over in bed 1 - Total Assistance Sitting/standing from chair 1 - Total Assistance Moving from lying on back to sitting 1 - Total Assistance Moving to and from bed to chair 1 - Total Assistance Walk in hospital room 1 - Total Assistance Climbing 3-5 steps with a railing 1 - Total Assistance CURRENT [facility] Mobility Raw Score 6 CURRENT [facility] Mobility Functional Limitation/Modifier 100.00% Currently Impaired in Basic Mobility Currently Impaired in Basic Mobility - CN Projected [facility] Mobility Raw Score 10 Projected [facility] Mobility Functional Limitation/Modifier 76.75% Projected Functional Impairment in Basic Mobility Clinical Impression PT Therapy Completed Yes PT Therapies Still to Complete 3 Continue care plan yes Today's Treatment Included RN baljinder patient participation in therapy session. Pt was lying in bed lethargic. Pt educated in bed mobility transferring supine to sit with dependent assist of 2. Pt completed edge of bed sitting with max assist with patient pulling toward left side. PT focus on patients sitting balance, posture, stretching of neck to achieve neutral and increasing patients core strength and endurance. Pt educated in bilateral LE therapeutic exercises in sitting in all planes to increase strength and endurance. Pt tolerated prolong passive stretch to bilateral LE to prevent risk of contractures and muscle tightness. Pt with no active movement of right LE this date, requiring passive range of motion. Pt completed supine to sit with dependent assist of 2. Pt in bed with all needs met, call light in reach. RN aware. Assessment VTE Prevention/Management (range of motion promoted) Progress toward goals Pt making minimal progress toward therapy goals this date, Pt very fatigued and lethargic Plan Plan for next visit Continue to progress mobility as patient tolerates Maintain frequency yes Upon discontinuation of Acute Care Physical Therapy Services or patient discharge from the hospital this note represents the current Physical Therapy Discharge Summary. Time in: 14:09 Time out: 14:33 I used gloves, facemask and protective eye shield in today's patient interaction. I was assisted by no one during this visit. Ofelia Celaya, DPT License #: [id number] Pager #: [phone] Asya Floyd, [employer] - 04/05/2020 10:06 AM EDT Acute Care Speech Language Pathology Treatment Note Diet and Medication Administration Recommendation: Recommended Method of Nutrition: PO Recommended Diet Grade: dysphagia- soft and bite sized (IDDSI 6) Recommended Liquid Consistency: liquid- moderately thick (IDDSI 3)/honey Medications: crushed or non-oral Swallow Strategies: (Small bites/sips) Type of Cues/Supervision: 1:1 supervision Assistance: nurse/aide Speech/Lang/Cog Therapy Frequency: 5 times a week Swallow Therapy Frequency: 5 times a week Other Recommendations: Oral care 3x/day as this has been shown to reduce the risk of pneumonia. ? Discharge Recommendations: Blaine Crowley would benefit from continued [employer] services with 24 hour supervision to address pt's severe non-fluent aphasia and moderate oropharyngeal dysphagia. SUBJECTIVE: RN communication: RN approved session: yes, RN Leigh Status statements: Pt laying in bed on [employer] arrival, RN present at bedside for med administration. Therapy session limited by arrival of radiology for Xray. Pain: No verbal/nonverbal indicators of pain present OBJECTIVE: (Treatment Activity Completed) O2 Sat (%): 95 % (04/05 1517) O2 Device: room air (04/05 0826) Of note, [employer] and RN presented x2 PO meds unable to be crushed in puree. Pt noted to chew meds withinpuree and expectorated x1. Continue to recommend meds crushed in puree or via NGT. Swallow: 1. ?Patient will demonstrate safe and efficient swallow of Soft and Bite Sized (IDDSI 6)/Dysphagia Advanced solids and Moderately thick (IDDSI 3)/Honey thick liquids without signs/sx of aspiration riskon 10/10 bolus trials given max assist over 2 sessions. Goal addressed; pt self-fed x3 sips of moderately thick liquids, min anterior loss on L side noted,though ?impact of presence of DHT as well as pt spatial awareness. Unable to address advancing solids this date d/t time constraints. However pt noted to chew PO meds within pudding this date. Continueto address. 2. ?Patient will complete lingual strengthening and bolus control activities to improve efficiency of oral phase, given mod assist over 2 sessions. Goal not addressed this date d/t time constraints. However when cued to complete lingual sweep x2, pt without initiation/following directions to assist in oral clearance this date. Continue to address. 3. ?Patient will complete effortful swallow ex 10 repetitions to improve pharyngeal contraction for bolus clearance and closure of laryngeal vestibule during the swallow for airway protection, given max assist ?As able with cognition over 2 sessions. Goal addressed; given max verbal/tactile cues for pt to initiate volitional swallows. [employer] provided cues to swallow hard, though can not verify completion of effortful swallow vs reflexive swallow atbedside, pt with x4 spontaneous swallows given extended time along with max cues. Continue to address. Speech/algn/cog: Attempted this date, however time constraints limiting [employer] Outcomes Tracking Communicate basic wants and needs?: no Demo insight/appreciation of deficits?: no Complete basic problem solving?: no ASSESSMENT: Diagnosis & Severity rating: moderate oropharyngeal dysphagia s/p CVA and subsequent seizure activity. Pt with single verbalization yeah in response to [employer] inquiry if pt would like to drink. Pt continues to require 1:1 assist with PO intake and max cues for functional communication. Progress toward goals: progressing Prognosis: good to achieve stated goals PLAN: Goal management Continue current plan of care Recommendations and referrals See top of note for further recommendations Time in: 1006 Time out: 1017 I used facemask,protective eye shield, and gloves in today's patient interaction. I was assisted by no one during this visit. Speech-Language Pathologist: Asya Guerrero CF-[employer] Pager: [phone] License: [id number] Email: [email or web address] Upon discontinuation of Acute Care Speech Therapy Services or patient discharge from the hospital this note represents the current Speech Therapy Discharge Summary Carly Bird MD - 04/05/2020 9:21 AM EDT Internal Medicine Daily Progress Note Patient: Blaine Crowley, 1955, [id number] Physician: Carly Morrison MD, Pager# [phone] Subjective/Interval History: Mr. Crowley spiked a fever of 101.2 yesterday afternoon. Nursing removed blankets and repositioned,temp recheck was 100F. Cx drawn, UA, Urine cx. Abx escalated to zosyn. There were no acute events overnight. Patient appeared comfortable this am. Objective: Vitals: 04/05/20 0754 BP: 137/69 Pulse: 67 Resp: 18 Temp: 98.6 ?F (37 ?C) O2 Device: room air (04/05/20 0826) General: Awake and alert. No meaningful verbal interaction HEENT: Conjunctiva non-injected, sclera non-icteric. NG tube in place CV: bradycardic, no murmurs, rubs, or gallops. Pulm: Breathing comfortably on room air. Lungs clear to auscultation bilaterally. No rales or rhonchi. Abd: Soft, nontender, nondistended, bowel sounds present : Condom cath in place Extremities: Warm and well perfused. Neuro: awake, minimally interactive. Wiggles L fingers and toes on command Skin: stage 1 pressure injury on b/l buttocks. Approx 1x3cm blister present on R buttock There is no height or weight on file to calculate BMI. Data Review: Recent Labs 04/03/20 0348 04/04/20 0026 04/04/20 1647 04/05/20 0027 WBC 12.33* -- 12.41* -- 11.66* HGB 12.8* -- 12.8* -- 12.2* HCT 39.6 -- 39.3* -- 37.6* PLATELET 224 -- 208 -- 233 SODIUM 136 < > 138 135 136 POTASSIUM 4.3 < > 4.4 4.3 4.1 CHLORIDE 102 < > 102 101 101 CO2 24 < > 25 24 25 BUN 18 < > 19 22 22 CREATSERUM 1.03 < > 1.10 1.06 1.32* MAGNESIUM 2.0 < > 1.9 2.0 2.0 PHOSPHORUS 4.2 < > 4.0 4.1 4.2 < > = values in this interval not displayed. XR CHEST AP PORTABLE Final Result IMPRESSION: Hazy bilateral basilar opacities may represent an infectious process in the appropriate clinical setting. FLUORO MODIFIED BARIUM SWALLOW WITH SPEECH Final Result IMPRESSION: 1. Reduced visualization of the airway and cervical esophagus due to overlap by the shoulders. 2. Laryngeal penetration and silent aspiration of thin and nectar liquids. 3. Transient laryngeal penetration of honey liquids. 4. Functional impairments of the oral and pharyngeal phases as described above. 5. Nasoenteric tube present. Refer to the Speech and Language Pathologist's report for diet and therapy recommendations. Procedure performed by FLORY Barfield under the direct supervision of Dr. Chio Mcclellan. I personally viewed and interpreted these images and I have reviewed and approved this report. ABDOMEN 1 VIEW Final Result IMPRESSION: Dobbhoff tube tip in the proximal stomach. Further advancement is recommended if postpyloric positioning is needed. CHEST WITHOUT CONTRAST Final Result IMPRESSION: 1. Trace left pleural effusion with dependent atelectasis in the posterior left lung and generalized underaeration of the lung bases 2. No mass or lymphadenopathy. 3. Generalized calcified atherosclerotic disease of the coronary arteries. Dilated ascending thoracic aorta at 4.3 cm. ABDOMEN/PELVIS WITHOUT CONTRAST Final Result IMPRESSION: 1. No acute intra-abdominal findings to explain the patient's abdominal pain. 2. No bowel obstruction or bowel wall thickening. 3. Status post left nephrectomy. No abnormal density within the left nephrectomy bed. 4. Scattered colonic diverticulosis without evidence of acute diverticulitis. 5. Diffuse hepatic steatosis without focal hepatic lesion. ABDOMEN 1 VIEW PORTABLE Final Result IMPRESSION: NG tube in appropriate position. Stable mild dilation of the visualized colon which may represent an ileus or distal obstruction. ABDOMEN 1 VIEW PORTABLE Final Result IMPRESSION: Side port of the enteric tube is at the GE junction. Recommend advancement of 5 to 7 cm. CARDIOGRAM Final Result MRI BRAIN WITH AND WITHOUT CONTRAST Final Result IMPRESSION: Acute infarct in the right basal ganglia and internal capsule, without hemorrhage or mass effect. Extensive cystic encephalomalacia throughout the left frontal and parietal lobes with ex vacuo dilation of left lateral ventricle. Hemosiderin staining within the encephalomalacia is consistent with remote hemorrhagic change. There is also encephalomalacia in the right parietal lobe to a lesser extent. DUPLEX VENOUS EXTREMITY UPPER RIGHT Final Result US ABDOMEN RUQ/LIVER/GB Final Result IMPRESSION: Hepatic steatosis. No evidence of cirrhosis. No focal hepatic lesions. I personally viewed and interpreted these images and I have reviewed and approved this report. FLUORO LUMBAR PUNCTURE Final Result IMPRESSION: Successful fluoroscopic-guided lumbar puncture with 10 ml of clear colorless CSF removed. Opening pressure: 15 cm H2O. I personally viewed and interpreted these images and I have reviewed and approved this report. CHEST AP PORTABLE ED Final Result IMPRESSION: No acute cardiopulmonary disease. STROKE HEAD-STROKE ALERT ONLY Final Result IMPRESSION: No acute intracranial hemorrhage. Hypoattenuation along the anterior right basal ganglia is unchanged since the outside facility CT earlier same day, and could represent potentially an acute lacunar infarct, sequela of hypoxic-ischemic injury, or toxic metabolic process such as carbon monoxide toxicity. Remote infarcts of the left frontal, parietal, and temporal lobes as well as of the right parietal lobe and right basal ganglia with associated ex vacuo dilation of the left lateral ventricle. Findings were discussed with Ana Burns MD at 2119 on March 21, 2020. I personally viewed and interpreted these images and I have reviewed and approved this report. CHEST PORTABLE (Results Pending) XR CHEST AP PORTABLE 04/01/2020 IMPRESSION: Hazy bilateral basilar opacities may represent an infectious process in the appropriate clinical setting. Assessment/Plan: 64 y/o male with PMHx of CVA w/ residual right-sided weakness (2012) and seizures who presented withaltered mental status found to have acute right basal ganglia stroke. ? Altered Mental Status / Acute CVA Right Basal Ganglia/ Internal Capsule and Subsequent Seizure Activity Patient found unresponsive 03/21/20. CT head demonstrated hypoattenuation along anterior R basal ganglia. APAP and ASA negative, UDS showed diphenhydramine. Labs for encephalopathy unremarkable. EEG without seizure. Infectious workup of blood cx NGTD and LP negative for infection. Neurology consult recommended stroke work up: TTE with EF 60%, negative bubble study. Neuro has since signed off. - Keppra 1000 BID -Thiamine 100mg daily - s/p Decadron -Doing well without restraints Dysphagia 2/2 CVA and Subsequent Seizure Activity Appears to be tolerating PO meals. Nutrition consulted; recommend continued supplementation with tube feeds. Bump in Cr and yellow urine may indicate slight dehydration. - PT/OT/Speech, recSNF -Nutrition consult: diet adjusted per recommendations -Mg, PO4, K+ daily labs Leukocytosis, Fever Uptrending leukocytosis of unknown etiology. CXR 04/01 shows slight increase in b/l basilar opacities. No accompanying abnormal breath sounds, fever, increased work of breathing, or hypoxia. New fever on 04/04 without symptomatic changes. Possible HAP vs aspiration pna. -Abx escalated to zosyn -Blood and urine cx, UA -MRSA swab negative ? Elevated Lactic Acid- Resolved Stable lactic acidosis of unclear etiology. CT chest and a/p negative for malignancy. Possibly secondary to hepatosteatosis. Chronic HLD- atorvastatin DVT prophylaxis with Lovenox Disposition: GM 4 for dysphagia Code status is FULL CODE Diet: NG Tube and PO Bowel regimen: Miralax Carly Morrison MD Internal Medicine, PGY-1 Pager: [phone] signed by Loyd Shanks MD at 04/05/2020 2:15 PM EDT Associated attestation - Loyd Shanks MD - 04/05/2020 2:15 PM EDTAttending Attestation : I have seen and examined Blaine Crowley on 04/05/2020 independently of the hospital medicine staff team and discussed with them all pertinent findings. I have personally reviewed all available clinical data related to today's encounter. I have been fully involved in formulation of the above-documented assessment and plan and it has been thoroughly discussed with the residents/interns. Blaine Crowley is a 64 y.o. male with a history of cva presenting with encephalopathy found to have right basal ganglia stroke w/hsopt course complicated by pna. When I see Blaine Crowley he states that he feels quite well. Acute Stroke neuro on c/s, w/up unimpressive, cont asa/statin & control medical risk factors as able PNA febrile yesterday, infxs w/up broadened as well as atbx Disposition To snf assuming remains afebrile & repeat cx data unimpressive Signed, Loyd Shanks MD Chocolatier of Clinical medicine Department of Internal Medicine Division of [facility] Medicine Carly Morrison MD - 04/04/2020 12:39 PM EDT Internal Medicine Daily Progress Note Patient: Blaine Crowley, 1955, [id number] Physician: Carly Morrison MD, Pager# [phone] GM 4 service Subjective/Interval History: No acute events overnight. Appears to be doing well this AM. He has been accepted by [facility] SNF. Has been off of restraints for >24hrs. SNF has requested a second COVID PCR prior to transfer. Will likely transfer tomorrow (04/05) Objective: Vitals: 04/04/20 1130 BP: 136/64 Pulse: 65 Resp: 16 Temp: 98.4 ?F (36.9 ?C) O2 Device: room air (04/04/20 0935) General: Awake and alert. Mostly nonverbal, but responds ok this morning in understanding HEENT: Conjunctiva non-injected, sclera non-icteric. NG tube in place CV: bradycardic, no murmurs, rubs, or gallops. Pulm: Breathing comfortably on room air. Lungs clear to auscultation bilaterally. No rales or rhonchi. Abd: Soft, nontender, nondistended, bowel sounds present : Condom cath in place Extremities: Warm and well perfused. Neuro: awake, minimally interactive. Wiggles L toes on command Skin: No rashes, bruises, wounds There is no height or weight on file to calculate BMI. Data Review: Recent Labs 04/02/20 0010 04/03/20 0348 04/03/20 1805 04/04/20 0026 WBC 13.32* -- 12.33* -- 12.41* HGB 12.9* -- 12.8* -- 12.8* HCT 39.8 -- 39.6 -- 39.3* PLATELET 203 -- 224 -- 208 SODIUM 136 < > 136 135 138 POTASSIUM 4.2 < > 4.3 4.6 4.4 CHLORIDE 101 < > 102 102 102 CO2 24 < > 24 21* 25 BUN 20 < > 18 20 19 CREATSERUM 1.10 < > 1.03 1.01 1.10 MAGNESIUM 1.9 < > 2.0 2.0 1.9 PHOSPHORUS 3.9 < > 4.2 4.3 4.0 < > = values in this interval not displayed. XR CHEST AP PORTABLE Final Result IMPRESSION: Hazy bilateral basilar opacities may represent an infectious process in the appropriate clinical setting. FLUORO MODIFIED BARIUM SWALLOW WITH SPEECH Final Result IMPRESSION: 1. Reduced visualization of the airway and cervical esophagus due to overlap by the shoulders. 2. Laryngeal penetration and silent aspiration of thin and nectar liquids. 3. Transient laryngeal penetration of honey liquids. 4. Functional impairments of the oral and pharyngeal phases as described above. 5. Nasoenteric tube present. Refer to the Speech and Language Pathologist's report for diet and therapy recommendations. Procedure performed by FLORY Barfield under the direct supervision of Dr. Chio Mcclellan. I personally viewed and interpreted these images and I have reviewed and approved this report. ABDOMEN 1 VIEW Final Result IMPRESSION: Dobbhoff tube tip in the proximal stomach. Further advancement is recommended if postpyloric positioning is needed. CHEST WITHOUT CONTRAST Final Result IMPRESSION: 1. Trace left pleural effusion with dependent atelectasis in the posterior left lung and generalized underaeration of the lung bases 2. No mass or lymphadenopathy. 3. Generalized calcified atherosclerotic disease of the coronary arteries. Dilated ascending thoracic aorta at 4.3 cm. ABDOMEN/PELVIS WITHOUT CONTRAST Final Result IMPRESSION: 1. No acute intra-abdominal findings to explain the patient's abdominal pain. 2. No bowel obstruction or bowel wall thickening. 3. Status post left nephrectomy. No abnormal density within the left nephrectomy bed. 4. Scattered colonic diverticulosis without evidence of acute diverticulitis. 5. Diffuse hepatic steatosis without focal hepatic lesion. ABDOMEN 1 VIEW PORTABLE Final Result IMPRESSION: NG tube in appropriate position. Stable mild dilation of the visualized colon which may represent an ileus or distal obstruction. ABDOMEN 1 VIEW PORTABLE Final Result IMPRESSION: Side port of the enteric tube is at the GE junction. Recommend advancement of 5 to 7 cm. CARDIOGRAM Final Result MRI BRAIN WITH AND WITHOUT CONTRAST Final Result IMPRESSION: Acute infarct in the right basal ganglia and internal capsule, without hemorrhage or mass effect. Extensive cystic encephalomalacia throughout the left frontal and parietal lobes with ex vacuo dilation of left lateral ventricle. Hemosiderin staining within the encephalomalacia is consistent with remote hemorrhagic change. There is also encephalomalacia in the right parietal lobe to a lesser extent. DUPLEX VENOUS EXTREMITY UPPER RIGHT Final Result US ABDOMEN RUQ/LIVER/GB Final Result IMPRESSION: Hepatic steatosis. No evidence of cirrhosis. No focal hepatic lesions. I personally viewed and interpreted these images and I have reviewed and approved this report. FLUORO LUMBAR PUNCTURE Final Result IMPRESSION: Successful fluoroscopic-guided lumbar puncture with 10 ml of clear colorless CSF removed. Opening pressure: 15 cm H2O. I personally viewed and interpreted these images and I have reviewed and approved this report. CHEST AP PORTABLE ED Final Result IMPRESSION: No acute cardiopulmonary disease. STROKE HEAD-STROKE ALERT ONLY Final Result IMPRESSION: No acute intracranial hemorrhage. Hypoattenuation along the anterior right basal ganglia is unchanged since the outside facility CT earlier same day, and could represent potentially an acute lacunar infarct, sequela of hypoxic-ischemic injury, or toxic metabolic process such as carbon monoxide toxicity. Remote infarcts of the left frontal, parietal, and temporal lobes as well as of the right parietal lobe and right basal ganglia with associated ex vacuo dilation of the left lateral ventricle. Findings were discussed with Ana Burns MD at 9 on March 21, 2020. I personally viewed and interpreted these images and I have reviewed and approved this report. CHEST AP PORTABLE 04/01/2020 IMPRESSION: Hazy bilateral basilar opacities may represent an infectious process in the appropriate clinical setting. Assessment/Plan: 64 y/o male with PMHx of CVA w/ residual right-sided weakness (2012) and seizures who presented withaltered mental status found to have acute right basal ganglia stroke. ? 1. Altered Mental Status / Acute CVA Right Basal Ganglia/ Internal Capsule and Subsequent Seizure Activity Patient found unresponsive 03/21/20. CT head demonstrated hypoattenuation along anterior R basal ganglia. APAP and ASA negative, UDS showed diphenhydramine. Labs for encephalopathy unremarkable. EEG without seizure. Infectious workup of blood cx NGTD and LP negative for infection. Neurology consult recommended stroke work up: TTE with EF 60%, negative bubble study. Neuro has since signed off. - Keppra 1000 BID -Thiamine 100mg daily - s/p Decadron -Doing well without restraints 2. Dysphagia 2/2 CVA and Subsequent Seizure Activity Appears to be tolerating PO meals. Nutrition consulted; recommend continued supplementation with tube feeds. Bump in Cr and yellow urine may indicate slight dehydration. - PT/OT/Speech, recSNF -Nutrition consult: diet adjusted per recommendations -Mg, PO4, K+ daily labs 3. Leukocytosis, Cough Uptrending leukocytosis of unknown etiology. Thought to be related to use of steroid or stress; however, new cough may indicate pneumonia. CXR 04/01 shows slight increase in b/l basilar opacities. No accompanying abnormal breath sounds, fever, increased work of breathing, or hypoxia. Possible HAP, but plan to continue to monitor at this point in time. -empiric Unasyn, switch to augmentin on discharge until 04/09 -MRSA swab ? 4. Elevated Lactic Acid- Resolved Stable lactic acidosis of unclear etiology. CT chest and a/p negative for malignancy. Possibly secondary to hepatosteatosis. Chronic HLD- atorvastatin DVT prophylaxis with Lovenox Disposition: GM 4 for dysphagia Code status is FULL CODE Diet: NG Tube and PO Bowel regimen: Miralax Carly Morrison MD Internal Medicine, PGY-1 Pager: [phone] signed by Goldy Gonzalez MD at 04/04/2020 7:52 PM EDT Associated attestation - Goldy Gonzalez MD - 04/04/2020 7:52 PM EDT Attending Attestation: I have personally seen and independently examined Blaine Crowley on April 04, 2020 and I agree withthe physical exam as stated above. I have personally reviewed all available clinical data related phillip's encounter including, but not limited to, radiology images and reports, laboratory data, and procedure reports. I agree with the resident's findings and have been fully involved in formulation of the assessment and plan. Blaine was doing well today. Still no meaningful verbal interaction. Had planned for discharge to SNF today but informed SNF unable to accept today. Note late afternoon fever for which he has been broadened to zosyn. Most likely source for infection would be respiratory. Goldy Gonzalez MD Chocolatier of Internal Medicine Division of Hospital [facility] System[facility]ila Barron LSW - 04/04/2020 11:01 AM EDTPlacement Plan ? This assessment was completed telephonically. ? Expected Discharge Date: 04/05/2020 ? Referred Level of Care: SNF ? Barriers: Transportation, facility acceptance over the weekend ? Current Referrals and Status 1. [facility] Longterm ? Transitional Care Unit ([phone]) SW called TCU at [facility]. Their director of hotel is out on vacation so they are checking records to see if they had officially accepted this patient. SW will continue to follow. ADDENDUM: 11:10am Facility returned this SW call. Admissions are being covered by Patsy ([phone]) who is available Sunday, 04/05. Based on the coversation, Patsy may not have access to A[facility], so Brooks8[facility] TONY will need to call her and/or the building at [phone] in order to ensure she has the referral information. SW will leave handoff. ADDENDUM: 11:20am Admissions will need to have the following information when TONY calls tomorrow: He has otherwise been restraint free, without a sitter, and there have been no antipsychotics administered. A second COVID test is pending. PRIYA Martel, JANEL Float Director Emergency Services [phone] Available on Secure Chat Weekend Social Work Contacts [facility]: [phone] Mariscal: [phone] Hansel: [phone] Johnny Escuderoamp; Umberto CHAHAL (PCU/MICU only): [phone] Carly Bird MD - 04/03/2020 4:09 PM EDT Internal Medicine Daily Progress Note Patient: Blaine Crowley, 1955, [id number] Physician: Carly Morrison MD, Pager# [phone] service Subjective/Interval History: No acute events overnight. Has done well without restraints for over 24 hours. Voiding spontaneouslywith condom catheter on. He has been accepted by [facility] SNF. Awaiting time from SNF to transfer. Objective: Vitals: 04/03/20 1515 BP: 103/62 Pulse: 62 Resp: 18 Temp: 97.5 ?F (36.4 ?C) O2 Device: room air (04/03/20 1515) General: Awake and alert. Mostly nonverbal, but responds ok this morning in understanding HEENT: Conjunctiva non-injected, sclera non-icteric. NG tube in place CV: bradycardic, no murmurs, rubs, or gallops. Pulm: Breathing comfortably on room air. Lungs clear to auscultation bilaterally. No rales or rhonchi. Abd: Soft, nontender, nondistended, bowel sounds present : Condom cath in place Extremities: Warm and well perfused. Neuro: awake, minimally interactive. Wiggles L toes on command Skin: No rashes, bruises, wounds There is no height or weight on file to calculate BMI. Data Review: Recent Labs 04/01/20 0405 04/02/20 0010 04/02/20 1805 04/03/20 0348 WBC 12.89* -- 13.32* -- 12.33* HGB 12.1* -- 12.9* -- 12.8* HCT 38.0* -- 39.8 -- 39.6 PLATELET 198 -- 203 -- 224 SODIUM 140 < > 136 137 136 POTASSIUM 3.9 < > 4.2 4.4 4.3 CHLORIDE 106 < > 101 100 102 CO2 24 < > 24 25 24 BUN 21 < > 20 18 18 CREATSERUM 1.21 < > 1.10 1.07 1.03 MAGNESIUM 1.9 < > 1.9 2.1 2.0 PHOSPHORUS 4.0 < > 3.9 4.6 4.2 < > = values in this interval not displayed. Lab Results Component Value Date LACT 2.2 (H) 03/25/2020 LACT 2.1 (H) 03/24/2020 LACT 2.9 (H) 03/23/2020 XR CHEST AP PORTABLE Final Result IMPRESSION: Hazy bilateral basilar opacities may represent an infectious process in the appropriate clinical setting. FLUORO MODIFIED BARIUM SWALLOW WITH SPEECH Final Result IMPRESSION: 1. Reduced visualization of the airway and cervical esophagus due to overlap by the shoulders. 2. Laryngeal penetration and silent aspiration of thin and nectar liquids. 3. Transient laryngeal penetration of honey liquids. 4. Functional impairments of the oral and pharyngeal phases as described above. 5. Nasoenteric tube present. Refer to the Speech and Language Pathologist's report for diet and therapy recommendations. Procedure performed by FLORY Barfield under the direct supervision of Dr. Chio Mcclellan. I personally viewed and interpreted these images and I have reviewed and approved this report. ABDOMEN 1 VIEW Final Result IMPRESSION: Dobbhoff tube tip in the proximal stomach. Further advancement is recommended if postpyloric positioning is needed. CHEST WITHOUT CONTRAST Final Result IMPRESSION: 1. Trace left pleural effusion with dependent atelectasis in the posterior left lung and generalized underaeration of the lung bases 2. No mass or lymphadenopathy. 3. Generalized calcified atherosclerotic disease of the coronary arteries. Dilated ascending thoracic aorta at 4.3 cm. ABDOMEN/PELVIS WITHOUT CONTRAST Final Result IMPRESSION: 1. No acute intra-abdominal findings to explain the patient's abdominal pain. 2. No bowel obstruction or bowel wall thickening. 3. Status post left nephrectomy. No abnormal density within the left nephrectomy bed. 4. Scattered colonic diverticulosis without evidence of acute diverticulitis. 5. Diffuse hepatic steatosis without focal hepatic lesion. ABDOMEN 1 VIEW PORTABLE Final Result IMPRESSION: NG tube in appropriate position. Stable mild dilation of the visualized colon which may represent an ileus or distal obstruction. ABDOMEN 1 VIEW PORTABLE Final Result IMPRESSION: Side port of the enteric tube is at the GE junction. Recommend advancement of 5 to 7 cm. CARDIOGRAM Final Result MRI BRAIN WITH AND WITHOUT CONTRAST Final Result IMPRESSION: Acute infarct in the right basal ganglia and internal capsule, without hemorrhage or mass effect. Extensive cystic encephalomalacia throughout the left frontal and parietal lobes with ex vacuo dilation of left lateral ventricle. Hemosiderin staining within the encephalomalacia is consistent with remote hemorrhagic change. There is also encephalomalacia in the right parietal lobe to a lesser extent. DUPLEX VENOUS EXTREMITY UPPER RIGHT Final Result US ABDOMEN RUQ/LIVER/GB Final Result IMPRESSION: Hepatic steatosis. No evidence of cirrhosis. No focal hepatic lesions. I personally viewed and interpreted these images and I have reviewed and approved this report. FLUORO LUMBAR PUNCTURE Final Result IMPRESSION: Successful fluoroscopic-guided lumbar puncture with 10 ml of clear colorless CSF removed. Opening pressure: 15 cm H2O. I personally viewed and interpreted these images and I have reviewed and approved this report. CHEST AP PORTABLE ED Final Result IMPRESSION: No acute cardiopulmonary disease. STROKE HEAD-STROKE ALERT ONLY Final Result IMPRESSION: No acute intracranial hemorrhage. Hypoattenuation along the anterior right basal ganglia is unchanged since the outside facility CT earlier same day, and could represent potentially an acute lacunar infarct, sequela of hypoxic-ischemic injury, or toxic metabolic process such as carbon monoxide toxicity. Remote infarcts of the left frontal, parietal, and temporal lobes as well as of the right parietal lobe and right basal ganglia with associated ex vacuo dilation of the left lateral ventricle. Findings were discussed with Ana Burns MD at 2118 on March 21, 2020. I personally viewed and interpreted these images and I have reviewed and approved this report. CHEST AP PORTABLE 04/01/2020 IMPRESSION: Hazy bilateral basilar opacities may represent an infectious process in the appropriate clinical setting. Assessment/Plan: 64 y/o male with PMHx of CVA w/ residual right-sided weakness (2012) and seizures who presented withaltered mental status found to have acute right basal ganglia stroke. ? 1. Altered Mental Status / Acute CVA Right Basal Ganglia/ Internal Capsule and Subsequent Seizure Activity Patient found unresponsive 03/21/20. CT head demonstrated hypoattenuation along anterior R basal ganglia. APAP and ASA negative, UDS showed diphenhydramine. Labs for encephalopathy unremarkable. EEG without seizure. Infectious workup of blood cx NGTD and LP negative for infection. Neurology consult recommended stroke work up: TTE with EF 60%, negative bubble study. Neuro has since signed off. - Keppra 1000 BID -Thiamine 100mg daily - s/p Decadron -Doing well without restraints 2. Dysphagia 2/2 CVA and Subsequent Seizure Activity Appears to be tolerating PO meals. Nutrition consulted; recommend continued supplementation with tube feeds. Bump in Cr and yellow urine may indicate slight dehydration. - PT/OT/Speech, recSNF -Nutrition consult: diet adjusted per recommendations -Mg, PO4, K+ daily labs -Given 1 Liter LR 3. Leukocytosis, Cough Uptrending leukocytosis of unknown etiology. Thought to be related to use of steroid or stress; however, new cough may indicate pneumonia. CXR 04/01 shows slight increase in b/l basilar opacities. No accompanying abnormal breath sounds, fever, increased work of breathing, or hypoxia. Possible HAP, but plan to continue to monitor at this point in time. -empiric Unasyn, switch to augmentin on discharge until 04/09 -MRSA swab ? 4. Elevated Lactic Acid- Resolved Stable lactic acidosis of unclear etiology. CT chest and a/p negative for malignancy. Possibly secondary to hepatosteatosis. Chronic HLD- atorvastatin DVT prophylaxis with Lovenox Disposition: GM 4 for dysphagia Code status is FULL CODE Diet: NG Tube and PO Bowel regimen: Miralax Will Ericka Flanagan MD PGY 2 Pager: [phone] Associated attestation - Goldy Gonzalez MD - 04/03/2020 8:16 PM EDT Attending Attestation: I have personally seen and independently examined Blaine Crowley on April 03, 2020 and I agree withthe physical exam as stated above. I have personally reviewed all available clinical data related phillip's encounter including, but not limited to, radiology images and reports, laboratory data, and procedure reports. I agree with the resident's findings and have been fully involved in formulation of the assessment and plan. Blaine a bit more vocal today and followed commands. Accepted to SNF and awaiting bed availability.Can transition unasyn to augmentin on discharge. Goldy Gonzalez MD Chocolatier of Internal Medicine Division of Hospital Medicine [facility] Han LISW - 04/03/2020 11:41 AM EDTPlacement Plan This assessment was completed telephonically. Expected Discharge Date: 04/05/2020 Referred Level of Care: SNF Barriers: Transportation, facility acceptance over the weekend Current Referrals and Status 1. [facility] SNF - Reserved SW was informed that patient is medically ready; SW left a voicemail for facility and messaged online, no answer regarding whether they can accept today or not. Addendum 1:57 PM SW attempted to call facility; no answer. LUDA Ascencio Director Emergency Services [phone] Contact info for weekend CM and SW staff (8:00am - 4:30pm): [facility]: CCM: [phone] / Director Emergency Services: [phone] Mariscal: CCM: [phone] / Director Emergency Services: [phone] Hansel: CCM : [phone] / Director Emergency Services: [phone] Johnny/MICU/PCU Umberto: CCM: [phone] / Director Emergency Services: [phone] Ashley Sorenson LISW-S - 04/02/2020 4:04 PM EDTProgression of Care Note Expected Discharge Date: 04/05/2020 Medical Milestones Remaining: Pt with PNA on abx monitor for improvement Assessment and Discharge Plan as of 04/02/2020 4:04 PM Plan was discussed with Caregiver (HCPOA) on this date. Information from the patient, family, caregiver or other authorized food service representative(s) was obtained telephonically. Anticipated discharge disposition: Longterm Facility Anticipated Services at Discharge: Occupational Therapy, Physical Therapy, Longterm Barriers to Discharge: None Explanation of Barriers: none facility will accept dobhoff Readmission Risk Score Risk of Readmission: 13 Category Reference: ? Low: 0% - 16% ? Medium ? Low: 17% - 32% ? Medium ? High: 33% - 48% ? High: 49% - 100% Ashley JAMISONS Clinical [facility] [employer] [phone] Weekend coverage info: [facility]: CCM: [phone] / Director Emergency Services: [phone] Mariscal: CCM: [phone] / Director Emergency Services: [phone] Hansel: CCM : [phone] / Director Emergency Services: [phone] Johnny/MICU/PCU Umberto: CCM: [phone] / Director Emergency Services: [phone] Supriya Wilson LSW - 04/02/2020 2:20 PM EDTPlacement Plan ? This assessment was completed?telephonically. ? Expected Discharge Date:?04/06/2020 ? Referred Level of Care:??SNF ? Barriers:?Medical Stability, Transportation ? Current Referrals and Status 1.??[facility]-Reviewing Clinical 2.??[facility] SNF-Reserved 3.??[facility]-Reviewing Clinical 4[facility]??[facility]-Reserved 5.??[facility]-Reviewing Clinical 6.??[facility]-Reviewing Clinical 7. Brent Scales-In Review ? [facility] updated CHEMISTRY SPECIALIST that patient is not medically cleared for discharge to SNF and anticipate patient will remain in the hospital through the weekend. CHEMISTRY SPECIALIST spoke with patient's bedside nurse and patient's TF rate is at goal. No HENs needed. CHEMISTRY SPECIALIST spoke with patient's Greer MESA and explained patient may discharge on Sunday to SNF. HCPOA in agreement. Social work will remain available to assist as needed. PRIYA Longoria, PROJECT RESERVOIR ENGINEER Medical Social Work [phone] Contact info for weekend CM and SW staff (8:00am - 4:30pm): [facility]: CCM: [phone] / Director Emergency Services: [phone] Mariscal: CCM: [phone] / Director Emergency Services: [phone] Hansel: CCM : [phone] / Director Emergency Services: [phone] Johnny/MICU/PCU Umberto: CCM: [phone] / Director Emergency Services: [phone] Asya Sher, RECYCLING CREW SUPERVISOR - 04/02/2020 12:20 PM EDT Acute Care Speech Language Pathology Treatment Note *Please ensure pt is fully upright during all po intake and greater than 30 degrees elevated with tube feed running.* Diet and Medication Administration Recommendation: Recommended Method of Nutrition: PO Recommended Diet Grade: dysphagia- soft and bite sized (IDDSI 6) Recommended Liquid Consistency: liquid- moderately thick (IDDSI 3)/honey Medications: crushed Swallow Strategies: (Small bites/sips) Type of Cues/Supervision: 1:1 supervision Assistance: nurse/aide Speech/Lang/Cog Therapy Frequency: 5 times a week Swallow Therapy Frequency: 5 times a week Other Recommendations: Oral care 3x/day as this has been shown to reduce the risk of pneumonia. Discharge Recommendations: Blaine Crowley would benefit from continued RECYCLING CREW SUPERVISOR services with 24 hour supervision to address pt's severe non-fluent aphasia and moderate oropharyngeal dysphagia. SUBJECTIVE: RN communication: RN approved session: yes, RN Isabela Status statements: Pt alert and positioned, slouched at 15 degrees with tube feed running upon RECYCLING CREW SUPERVISOR entry. Repositioned and requested personal care assistance as pt was incontinent. OT arrived within RECYCLING CREW SUPERVISOR session to assistwith pt's personal care. Pain: Nonverbal indicator of pain not present OBJECTIVE: (Treatment Activity Completed) Swallow: 1. ?Patient will demonstrate safe and efficient swallow of Soft and Bite Sized (IDDSI 6)/Dysphagia Advanced solids and Moderately thick (IDDSI 3)/Honey thick liquids without signs/sx of aspiration riskon 10/10 bolus trials given max assist over 2 sessions. Did not address this date d/t pt's incontinence. Specifically, deferred not to sit pt upright and increase spread. 2. ?Patient will complete lingual strengthening and bolus control activities to improve efficiency of oral phase, given mod assist over 2 sessions. Addressed lingual strengthening via use of [place] Oral Pressure Instrument (IOPI). Completed 15 reps of isokinetic resistance exercises at 35 kPa. Able to return demonstration of each exercises with maxcues for bulb positioning and pressure and endurance. This was an increase in number of reps pt was able to achieve compared to prior session. Pt unable to provide a fatigue report given severity of aphasia. However, pt shook head to decline additional reps. 3. ?Patient will complete effortful swallow ex 10 repetitions to improve pharyngeal contraction for bolus clearance and closure of laryngeal vestibule during the swallow for airway protection, given max assist ?As able with cognition over 2 sessions. Addressed via models and verbal cues for pt to initiate volitional swallows. Cued pt to swallow hard. Unable to verify effortful nature at bedside. However, pt able to achieve 7 spontaneous swallowsgiven extra time, tactile stimulation and max verbal cues this date. This is an improvement from prior session. Discontinued after 7 reps as OT arrived to assist. RECYCLING CREW SUPERVISOR Outcomes Tracking Communicate basic wants and needs?: no Demo insight/appreciation of deficits?: no Complete basic problem solving?: no ASSESSMENT: Diagnosis & Severity rating: moderate oropharyngeal dysphagia Progress toward goals: progressing Prognosis: good PLAN: Goal management Continue to address as goals remain appropriate Recommendations and referrals Could consider repeat MBS if team concerned for aspiration pneumonia in the setting of increased cough and chest Xray from 04/01 with ner concern for infectious process. Also recommend ensuring optimal positioning during po intake and tube feed administration to reduce aspiration risk of po and reflux from tf. See top of note for further recommendations Time in: 1120 Time out: 1140 *In room until 12 assisting OT with personal care, though this was not focused on dysphagia intervention. I used facemask,protective eye shield, and gloves in today's patient interaction. I was assisted by no one during this visit. Speech-Language Pathologist: Asya Mike MA, CCC-RECYCLING CREW SUPERVISOR, CBIS Pager: [phone] Email: [email or web address] *Also available via [employer] Secure Chat Sunday-Sunday 07:30-16:00 Upon discontinuation of Acute Care Speech Therapy Services or patient discharge from the hospital this note represents the current Speech Therapy Discharge Summary Denise Cabello OT - 04/02/2020 12:00 PM EDT Acute Occupational Therapy Treatment / Progress Note Discharge Recommendations: Blaine Crowley would benefit from continued OT services with 24 hour supervision needed for self care and safety needs. Therapy frequency: 5 x's per week 04/02/20 1200 Subjective RN Approved Intervention as tolerated Existing Precautions/Restrictions fall Subjective Reports Pt alert, but initially with limited responses. Improved during session with improved attention and attempts at responding. Continued aphasia. Cognitive Status Examination Orientation Status (Cognition) oriented to;person Level of Consciousness alert;confused;cooperative Able to Follow Commands (Communication) moderate impairment;success, 1-step commands Personal Safety and Judgment at risk behaviors demonstrated;impaired General Pain Documentation (Adult, OB, Peds) Presence of Pain non-verbal indicator of pain/discomfort not present Edema Edema none noted Mobility Additional Documentation Pt requiring max A x2 for bed mobility x3 reps with increased time/ cues for limited initiation; able to slightly assist with LUE. Pt requiring max a x2 to position up in bed. Pt tolerated HOB raised for ADL tasks with SBA. Pt requiring mod to max cues for initiation; limited command following; improved with functional tasks. BADL Evaluation Additional Documentation Yes Grooming Yolo Level (Grooming) moderate assist (50% patient effort) Physical Assist/Nonphysical Assist set-up required;supervision;verbal cues;1 person assist (Pt participated in oral hygiene routine and light facial grooming bed level with HOB raised. Pt handed toothbrush and asked to show me how to use this; pt brought to head and simulated hair brushing. Pt requiring max cues and able to complete oral hygiene routine with oral care items hooked to suction with min A for residual fluid. Pt able to complete light facial grooming with washcloth with LUE;able to wash mouth and frazier; requiring assist to wash eyes/ head.) Toileting Level of Yolo dependent (less than 25% patients effort) Physical Assist/Nonphysical Assist set-up required;supervision;verbal cues;2 person assist (Pt incontinent of bowel bed level. Pt requiring max A x2 to dependent A x2 for rolling bed level and for all giovanny hygiene care; rolled x3-4 reps to complete.) CURRENT AM-PAC Daily Activity Inpatient Short Form Putting on/Taking Off Lower Body Clothing 1 - Total Assistance Bathing 1 - Total Assistance Toileting 1 - Total Assistance Putting on/Taking Off Upper Body Clothing 2 - A Lot of Assistance Grooming 2 - A Lot of Assistance Eating 1 - Total Assistance CURRENT AM-PAC Activity Raw Score 8 CURRENT AM-PAC Activity Functional Limitation/Modifier 85.69% Currently Impaired in Daily Activity -CM Assessment Assessment Narrative Pt motivated to participate in therapies and making fair progress towards goals. Pt limited by weakness, ROM, rigidity, command following, attention, balance. Pt continues to require max to dependent Ax 2 for functional transfers and mod to dependent A for basic self care this date. Pt to continue to benefit from OT services to increase independence with self care and safety during functional transfers. Clinical Impression Patient Instruction safe functional transfers, independence with basic self care, functional object use, UE ROM, positioning, command following, attention Equipment Issued none Rehab Potential (OT Eval) good, to achieve stated therapy goals OT Therapy Completed Yes OT Therapies Still to Complete 4 Continue care plan yes Therapist Recommendations At Discharge Recommendations OT Services recommended at Discharge Plan Plan Narrative OT to continue to follow and progress with plan of care. Next session to focus on increasing independence with all basic seated self care and functional command following Time in: 1132 ; Time out: 1200 Upon discontinuation of Acute Care Occupational Therapy Services or patient discharge from the hospital this note represents the current Occupational Therapy Discharge Summary. I used gloves, facemask and protective eye shield in today's patient interaction Denise Oates OTR/L License #: [id number] Pager #: [phone] Ramses Morillo MD - 04/02/2020 11:35 AM EDT Internal Medicine Daily Progress Note Patient: Blaine Crowley, 1955, [id number] Physician: Ramses Flanagan MD, Pager# [phone] 4 service Subjective/Interval History: ORIANA overnight, no changes neurologically this AM. Objective: Vitals: 04/02/20 0753 BP: 117/59 Pulse: 57 Resp: 18 Temp: 98.1 ?F (36.7 ?C) O2 Device: room air (04/02/20 0815) General: Awake and alert. Nonverbal, but nods in acknowledgment. HEENT: Conjunctiva non-injected, sclera non-icteric. PERRL. NG tube in place CV: bradycardic, no murmurs, rubs, S3 or S4. Pulm: Breathing comfortably on room air. Lungs clear to auscultation bilaterally. No rales or rhonchi. Abd: Soft, nontender, nondistended, bowel sounds present : Mcclellan in place, yellow urine Extremities: Warm and well perfused. Neuro: awake, minimally interactive. Wiggles toes on command Skin: No rashes, bruises, wounds There is no height or weight on file to calculate BMI. Data Review: Recent Labs 03/31/20 0421 04/01/20 0405 04/01/20 1728 04/02/20 0010 WBC 11.90* -- 12.89* -- 13.32* HGB 12.8* -- 12.1* -- 12.9* HCT 39.2* -- 38.0* -- 39.8 PLATELET 197 -- 198 -- 203 SODIUM 140 < > 140 139 136 POTASSIUM 3.9 < > 3.9 4.8 4.2 CHLORIDE 106 < > 106 104 101 CO2 25 < > 24 24 24 BUN 24* < > 21 21 20 CREATSERUM 1.02 < > 1.21 0.92 1.10 MAGNESIUM 1.9 < > 1.9 2.0 1.9 PHOSPHORUS 3.8 < > 4.0 3.8 3.9 < > = values in this interval not displayed. Lab Results Component Value Date LACT 2.2 (H) 03/25/2020 LACT 2.1 (H) 03/24/2020 LACT 2.9 (H) 03/23/2020 XR CHEST AP PORTABLE Final Result IMPRESSION: Hazy bilateral basilar opacities may represent an infectious process in the appropriate clinical setting. FLUORO MODIFIED BARIUM SWALLOW WITH SPEECH Final Result IMPRESSION: 1. Reduced visualization of the airway and cervical esophagus due to overlap by the shoulders. 2. Laryngeal penetration and silent aspiration of thin and nectar liquids. 3. Transient laryngeal penetration of honey liquids. 4. Functional impairments of the oral and pharyngeal phases as described above. 5. Nasoenteric tube present. Refer to the Speech and Language Pathologist's report for diet and therapy recommendations. Procedure performed by FLORY Barfield under the direct supervision of Dr. Chio Mcclellan. I personally viewed and interpreted these images and I have reviewed and approved this report. ABDOMEN 1 VIEW Final Result IMPRESSION: Dobbhoff tube tip in the proximal stomach. Further advancement is recommended if postpyloric positioning is needed. CHEST WITHOUT CONTRAST Final Result IMPRESSION: 1. Trace left pleural effusion with dependent atelectasis in the posterior left lung and generalized underaeration of the lung bases 2. No mass or lymphadenopathy. 3. Generalized calcified atherosclerotic disease of the coronary arteries. Dilated ascending thoracic aorta at 4.3 cm. ABDOMEN/PELVIS WITHOUT CONTRAST Final Result IMPRESSION: 1. No acute intra-abdominal findings to explain the patient's abdominal pain. 2. No bowel obstruction or bowel wall thickening. 3. Status post left nephrectomy. No abnormal density within the left nephrectomy bed. 4. Scattered colonic diverticulosis without evidence of acute diverticulitis. 5. Diffuse hepatic steatosis without focal hepatic lesion. ABDOMEN 1 VIEW PORTABLE Final Result IMPRESSION: NG tube in appropriate position. Stable mild dilation of the visualized colon which may represent an ileus or distal obstruction. ABDOMEN 1 VIEW PORTABLE Final Result IMPRESSION: Side port of the enteric tube is at the GE junction. Recommend advancement of 5 to 7 cm. CARDIOGRAM Final Result MRI BRAIN WITH AND WITHOUT CONTRAST Final Result IMPRESSION: Acute infarct in the right basal ganglia and internal capsule, without hemorrhage or mass effect. Extensive cystic encephalomalacia throughout the left frontal and parietal lobes with ex vacuo dilation of left lateral ventricle. Hemosiderin staining within the encephalomalacia is consistent with remote hemorrhagic change. There is also encephalomalacia in the right parietal lobe to a lesser extent. DUPLEX VENOUS EXTREMITY UPPER RIGHT Final Result US ABDOMEN RUQ/LIVER/GB Final Result IMPRESSION: Hepatic steatosis. No evidence of cirrhosis. No focal hepatic lesions. I personally viewed and interpreted these images and I have reviewed and approved this report. FLUORO LUMBAR PUNCTURE Final Result IMPRESSION: Successful fluoroscopic-guided lumbar puncture with 10 ml of clear colorless CSF removed. Opening pressure: 15 cm H2O. I personally viewed and interpreted these images and I have reviewed and approved this report. CHEST AP PORTABLE ED Final Result IMPRESSION: No acute cardiopulmonary disease. STROKE HEAD-STROKE ALERT ONLY Final Result IMPRESSION: No acute intracranial hemorrhage. Hypoattenuation along the anterior right basal ganglia is unchanged since the outside facility CT earlier same day, and could represent potentially an acute lacunar infarct, sequela of hypoxic-ischemic injury, or toxic metabolic process such as carbon monoxide toxicity. Remote infarcts of the left frontal, parietal, and temporal lobes as well as of the right parietal lobe and right basal ganglia with associated ex vacuo dilation of the left lateral ventricle. Findings were discussed with Ana Burns MD at 2118 on March 21, 2020. I personally viewed and interpreted these images and I have reviewed and approved this report. CHEST AP PORTABLE 04/01/2020 IMPRESSION: Hazy bilateral basilar opacities may represent an infectious process in the appropriate clinical setting. Assessment/Plan: 64 y/o male with PMHx of CVA w/ residual right-sided weakness (2012) and seizures who presented withaltered mental status found to have acute right basal ganglia stroke. ? 1. Altered Mental Status / Acute CVA Right Basal Ganglia/ Internal Capsule and Subsequent Seizure Activity Patient found unresponsive 03/21/20. CT head demonstrated hypoattenuation along anterior R basal ganglia. APAP and ASA negative, UDS showed diphenhydramine. Labs for encephalopathy unremarkable. EEG without seizure. Infectious workup of blood cx NGTD and LP negative for infection. Neurology consult recommended stroke work up: TTE with EF 60%, negative bubble study. Neuro has since signed off. - Keppra 1000 BID -Thiamine 100mg daily - s/p Decadron -Restraints discontinued for trial overnight, can replace if necessary 2. Dysphagia 2/2 CVA and Subsequent Seizure Activity Appears to be tolerating PO meals. Nutrition consulted; recommend continued supplementation with tube feeds. Bump in Cr and yellow urine may indicate slight dehydration. - PT/OT/Speech, recSNF -Nutrition consult: diet adjusted per recommendations -Mg, PO4, K+ daily labs -Given 1 Liter LR 3. Leukocytosis, Cough Uptrending leukocytosis of unknown etiology. Thought to be related to use of steroid or stress; however, new cough may indicate pneumonia. CXR 04/01 shows slight increase in b/l basilar opacities. No accompanying abnormal breath sounds, fever, increased work of breathing, or hypoxia. Possible HAP, but plan to continue to monitor at this point in time. -empiric Unasyn -MRSA swab ? 4. Elevated Lactic Acid- Resolved Stable lactic acidosis of unclear etiology. CT chest and a/p negative for malignancy. Possibly secondary to hepatosteatosis. Chronic HLD- atorvastatin DVT prophylaxis with Lovenox Disposition: GM 4 for dysphagia Code status is FULL CODE Diet: NG Tube and PO Bowel regimen: Miralax Will C MD Panchito PGY 2 Pager: [phone] Associated attestation - Goldy Gonzalez MD - 04/02/2020 4:59 PM EDT Attending Attestation: I have personally seen and independently examined Blaine Crowley on April 02, 2020 and I agree withthe physical exam as stated above. I have personally reviewed all available clinical data related totcarolyn's encounter including, but not limited to, radiology images and reports, laboratory data, and procedure reports. I agree with the resident's findings and have been fully involved in formulation of the assessment and plan. Blaine mental status about the same today. Note gradual increase in his leukocytosis with basilar airspace opacities on his CXR. Given this, will start treatment for suspected PNA today. Encourage PO intake and consider dobhoff tube removal if taking in adequate calories. Potential discharge to SNF Sunday or Sunday pending clinical progression with treatment of pneumonia. Goldy Gonzalez MD [facility] Division of Hospital Medicine [facility]Elinor Guardado, CLAIRE - 04/01/2020 12:32 PM EDT NUTRITION FOLLOW UP Nutrition Recommendations and Plan of Care: 1. Diet per RECYCLING CREW SUPERVISOR recommendations. 2. Will trial thickened Ensure Enlive tid for additional calories and protein. 3. Based on calorie counts below, pt is not able to consistently meet nutrition needs via po intake alone. -When medically appropriate, recommend TF regimen of Osmolite 1.2 @ 95 ml/hr x 14 hrs to provide ~70% of nutrition needs. This provides 1330 ml total volume, 1596 kcal, 74 g protein, 1091 ml free water -Free water flushes per primary team. Suggest a minimum of 30 mL x 4 daily to maintain tube patency. -If pt able to consistently consume 50% of meals and 1-2 supplements daily, can consider decrease in TF to 70 ml/hr x 12 hrs as tolerated to meet 50% of nutrition needs 4. Further adjustments/reduction in TF rate pending po intake. 5. Recommend checking Mg, PO4, K+ daily and replacing as appropriate. 6. Bowel regimen per primary team. 7. Recommend obtaining updated weight as pt has not been weighed since 03/25. 8. Monitor intakes, skin, labs, weight status, stool output. 9. RD to continue to follow. Per HPI: 64 y/o?male?with PMHx of?CVA w/ residual right-sided weakness (2012) and seizures who presents with altered mental status now found to have acute right basal ganglia stroke. Nutrition: Pt was assessed via chart review only given efforts to minimize contact, maintain appropriate socialdistancing, and reduce exposure risk. Noted pt non verbal per MD note on 03/31; did not call pt room at this time. Pt last assessed by RD on 03/26 with TF recommendations of Osmolite 1.2 @ 70 ml/hr. Average TF intake over the past 5 hlyu=600 ml/day; pt received 39% of goal TF volume. Reviewed meds history regarding TF administration. TF of Osmolite 1.2 initiated @ 10 ml/hr on 03/26, and advanced to 20 ml/hr later that day. TF advanced to 30 ml/hr on 03/27, and stopped later that day. TF restarted at 10 ml/hr evening of 03/28, and advanced to goal rate of 70 ml/hr at 0752 on 03/30. TF has continued to infuse at goal rate since then, and currently infusing at goal rate per MAR. Pt had MBS completed on 03/29 and RECYCLING CREW SUPERVISOR recommended soft and bite sized solids with moderately thick/honey thick liquids. Pt assessed by RECYCLING CREW SUPERVISOR on 03/30 and 03/31 and continue to recommend soft and bite sized solids and moderately thick/honey thick liquids. Calorie counts analyzed below, however only able to accurately analyze 03/31 po intakes as this was the only day where specific amounts of foods consumed were documented for all 3 meals. Pt consumed 630 kcal and 51 g protein this day which is not sufficient to meet nutrition needs. Calorie Counts: 03/29: Dinner: 230 kcal, 26 g protein 03/30: Breakfast: 25% (specific amounts of foods consumed not documented) Lunch: 50% (specific amounts of foods consumed not documented) Dinner: 25% (specific amounts of foods consumed not documented) 03/31: Fqvyrbsuf=700 kcal, 17 g protein Iqnvn=872 kcal, 8 g protein Kdyrwf=762 kcal, 26 g protein Total: 630 kcal, 51 g protein (this meets ~30% of nutrition needs) 04/01: Breakfast: 288 kcal, 9 g protein % PO Intakes per flowsheets: Breakfast Lunch Dinner 03/29 -- -- 100% minced chicken and gravy, coke 03/30 25% 50% 25% 03/31 eggs and chocolate milk 100% chicken noodles over mashed potatoes, yogurt 100% chicken 04/01 10/09 cup oatmeal, hasbrown casserole -- N/A Diet Order: Current Diet Orders Procedures ? DIET TUBE FEEDING WITH TRAY Diet Soft and Bite Sized (IDDSI 6); Liquid Moderately Thick (IDDSI 3) / Honey Standing Status: Standing Number of Occurrences: 1 Order Specific Question: Additional Modifier: Answer: Diet Soft and Bite Sized (IDDSI 6) Order Specific Question: Additional Modifier: Answer: Liquid Moderately Thick (IDDSI 3) / Honey Ht: 5'10 (11/06/16 per care everywhere) Admit Wt: -- CBW: 92 kg (03/25) IBW:75.5 kg %IBW: 122 BMI: 29 Weight History: Wt Readings from Last 8 Encounters: 03/25/20 92 kg (202 lb 13.2 oz) Estimated Nutrition Needs: Weight Used: 75.5 kg IBW EEN: 1432-1163 (25-30 kcal/kg IBW) EPN: 91-113 (1.2-1.5 g/kg IBW) EFN: 1 mL/kcal meds reviewed: Meds: ? aspirin 81 mg Per NG tube Daily ? atorvastatin 80 mg Per NG tube QHS ? enoxaparin 40 mg Subcutaneous QAM ? lactated ringers 1,000 mL Intravenous Once ? levETIRAcetam 1,000 mg Per NG tube Q12H ? multivitamin 1 tablet Oral Daily ? polyethylene glycol 17 g Per NG tube Daily ? Tamsulosin HCl 0.4 mg Oral Daily ? thiamine 100 mg Oral Daily Continuous: ? Osmolite 1.2 Ernst 70 mL/hr (04/01/20 0907) Labs reviewed: Na/K+/Phos/Mg/Ca: 140/3.9/4.0/1.9/-- (04/01 405) Bun/Creat/Cl/CO2/Glucose: 21/1.21/106/24/129 (04/01 405) WBC/Hgb/Hct/Plts: 12.89/12.1/38.0/198 (04/01 405) No results found for: PREALBUMIN No results found for: CRP Lab Results Component Value Date TRIG 166 (H) 03/25/2020 Lab Results Component Value Date ALT 33 03/21/2020 AST 39 03/21/2020 ALKPHOS 44 03/21/2020 BILITOTAL 0.6 03/21/2020 BILIDIRECT 0.1 03/21/2020 GI: +DHT. Last bm 03/31 Skin: Dayana Score: 15 Edema-- Malnutrition Diagnosis: Indications of Malnutrition: Unable to assess at this time. Pt was assessed via chart review only given efforts to minimize contact, maintain appropriate social distancing, and reduce exposure risk. Noted pt non verbal per MD note on 03/31; did not call pt room at this time. Pt has not been weighed since 03/25. TF has been infusing at goal rate since 03/30 per meds history. based on the AND/ASPEN Malnutrition Criteria [address], LD Pager: [phone] arly Rojo MD - 04/01/2020 12:17 PM EDT Internal Medicine Daily Progress Note Patient: Blaine Crowley, 1955, [id number] Physician: Carly Morrison MD, Pager# [phone] 4 [phone] Subjective/Interval History: Per nursing report, developed a wet cough. Was able to tolerate 3 meals PO yesterday. Patient was able to nod in understanding this morning. Does not endorse pain. Objective: Vitals: 04/01/20 1118 BP: 155/71 Pulse: 64 Resp: 23 Temp: 99.5 ?F (37.5 ?C) O2 Device: room air (04/01/20 1010) General: Awake and alert. Nonverbal, but nods in acknowledgment. HEENT: Conjunctiva non-injected, sclera non-icteric. PERRL. NG tube in place CV: bradycardic, no murmurs, rubs, S3 or S4. Pulm: Breathing comfortably on room air. Lungs clear to auscultation bilaterally. No rales or rhonchi. Abd: Soft, nontender, nondistended, bowel sounds present : Mcclellan in place, yellow urine Extremities: Warm and well perfused. No edema. SCDs in place. Neuro: awake, minimally interactive. Wiggles toes on command Skin: No rashes, bruises, wounds There is no height or weight on file to calculate BMI. Data Review: Recent Labs 03/30/20 0403 03/31/20 0421 03/31/20 1702 04/01/20 0405 WBC 11.17* -- 11.90* -- 12.89* HGB 13.1* -- 12.8* -- 12.1* HCT 40.1 -- 39.2* -- 38.0* PLATELET 196 -- 197 -- 198 SODIUM 142 < > 140 140 140 POTASSIUM 3.8 < > 3.9 4.1 3.9 CHLORIDE 110* < > 106 103 106 CO2 24 < > 25 28 24 BUN 27* < > 24* 22 21 CREATSERUM 1.18 < > 1.02 1.08 1.21 MAGNESIUM 2.0 < > 1.9 1.8 1.9 PHOSPHORUS 3.7 < > 3.8 3.5 4.0 < > = values in this interval not displayed. Lab Results Component Value Date LACT 2.2 (H) 03/25/2020 LACT 2.1 (H) 03/24/2020 LACT 2.9 (H) 03/23/2020 XR FLUORO MODIFIED BARIUM SWALLOW WITH SPEECH Final Result IMPRESSION: 1. Reduced visualization of the airway and cervical esophagus due to overlap by the shoulders. 2. Laryngeal penetration and silent aspiration of thin and nectar liquids. 3. Transient laryngeal penetration of honey liquids. 4. Functional impairments of the oral and pharyngeal phases as described above. 5. Nasoenteric tube present. Refer to the Speech and Language Pathologist's report for diet and therapy recommendations. Procedure performed by FLORY Barfield under the direct supervision of Dr. Chio Mcclellan. I personally viewed and interpreted these images and I have reviewed and approved this report. ABDOMEN 1 VIEW Final Result IMPRESSION: Dobbhoff tube tip in the proximal stomach. Further advancement is recommended if postpyloric positioning is needed. CHEST WITHOUT CONTRAST Final Result IMPRESSION: 1. Trace left pleural effusion with dependent atelectasis in the posterior left lung and generalized underaeration of the lung bases 2. No mass or lymphadenopathy. 3. Generalized calcified atherosclerotic disease of the coronary arteries. Dilated ascending thoracic aorta at 4.3 cm. ABDOMEN/PELVIS WITHOUT CONTRAST Final Result IMPRESSION: 1. No acute intra-abdominal findings to explain the patient's abdominal pain. 2. No bowel obstruction or bowel wall thickening. 3. Status post left nephrectomy. No abnormal density within the left nephrectomy bed. 4. Scattered colonic diverticulosis without evidence of acute diverticulitis. 5. Diffuse hepatic steatosis without focal hepatic lesion. ABDOMEN 1 VIEW PORTABLE Final Result IMPRESSION: NG tube in appropriate position. Stable mild dilation of the visualized colon which may represent an ileus or distal obstruction. ABDOMEN 1 VIEW PORTABLE Final Result IMPRESSION: Side port of the enteric tube is at the GE junction. Recommend advancement of 5 to 7 cm. CARDIOGRAM Final Result MRI BRAIN WITH AND WITHOUT CONTRAST Final Result IMPRESSION: Acute infarct in the right basal ganglia and internal capsule, without hemorrhage or mass effect. Extensive cystic encephalomalacia throughout the left frontal and parietal lobes with ex vacuo dilation of left lateral ventricle. Hemosiderin staining within the encephalomalacia is consistent with remote hemorrhagic change. There is also encephalomalacia in the right parietal lobe to a lesser extent. DUPLEX VENOUS EXTREMITY UPPER RIGHT Final Result US ABDOMEN RUQ/LIVER/GB Final Result IMPRESSION: Hepatic steatosis. No evidence of cirrhosis. No focal hepatic lesions. I personally viewed and interpreted these images and I have reviewed and approved this report. FLUORO LUMBAR PUNCTURE Final Result IMPRESSION: Successful fluoroscopic-guided lumbar puncture with 10 ml of clear colorless CSF removed. Opening pressure: 15 cm H2O. I personally viewed and interpreted these images and I have reviewed and approved this report. CHEST AP PORTABLE ED Final Result IMPRESSION: No acute cardiopulmonary disease. STROKE HEAD-STROKE ALERT ONLY Final Result IMPRESSION: No acute intracranial hemorrhage. Hypoattenuation along the anterior right basal ganglia is unchanged since the outside facility CT earlier same day, and could represent potentially an acute lacunar infarct, sequela of hypoxic-ischemic injury, or toxic metabolic process such as carbon monoxide toxicity. Remote infarcts of the left frontal, parietal, and temporal lobes as well as of the right parietal lobe and right basal ganglia with associated ex vacuo dilation of the left lateral ventricle. Findings were discussed with Ana Burns MD at 2119 on March 21, 2020. I personally viewed and interpreted these images and I have reviewed and approved this report. CHEST AP PORTABLE (Results Pending) XR CHEST AP PORTABLE 04/01/2020 IMPRESSION: Hazy bilateral basilar opacities may represent an infectious process in the appropriate clinical setting. Assessment/Plan: 64 y/o male with PMHx of CVA w/ residual right-sided weakness (2012) and seizures who presented withaltered mental status found to have acute right basal ganglia stroke. ? 1. Altered Mental Status / Acute CVA Right Basal Ganglia/ Internal Capsule and Subsequent Seizure Activity Patient found unresponsive 03/21/20. CT head demonstrated hypoattenuation along anterior R basal ganglia. APAP and ASA negative, UDS showed diphenhydramine. Labs for encephalopathy unremarkable. EEG without seizure. Infectious workup of blood cx NGTD and LP negative for infection. Neurology consult recommended stroke work up: TTE with EF 60%, negative bubble study. Neuro has since signed off. - Keppra 1000 BID -Thiamine 100mg daily - s/p Decadron -Restraints discontinued for trial overnight, can replace if necessary 2. Dysphagia 2/2 CVA and Subsequent Seizure Activity Appears to be tolerating PO meals. Nutrition consulted; recommend continued supplementation with tube feeds. Bump in Cr and yellow urine may indicate slight dehydration. - PT/OT/Speech, recSNF -Nutrition consult: diet adjusted per recommendations -Mg, PO4, K+ daily labs -Given 1 Liter LR 3. Leukocytosis, Cough Uptrending leukocytosis of unknown etiology. Thought to be related to use of steroid or stress; however, new cough may indicate pneumonia. CXR 04/01 shows slight increase in b/l basilar opacities. No accompanying abnormal breath sounds, fever, increased work of breathing, or hypoxia. Possible HAP, but plan to continue to monitor at this point in time. -Trend with CBC daily -Monitor temperature, SpO2, RR, O2 requirement ? 4. Elevated Lactic Acid- Resolved Stable lactic acidosis of unclear etiology. CT chest and a/p negative for malignancy. Possibly secondary to hepatosteatosis. Chronic HLD- atorvastatin DVT prophylaxis with Lovenox Disposition: GM 4 for dysphagia Code status is FULL CODE Diet: NG Tube and PO Bowel regimen: Miralax Carly Morrison MD PGY-1 Associated attestation - Goldy Gonzalez MD - 04/01/2020 5:05 PM EDT Attending Attestation: I have personally seen and independently examined Blaine Crowley on April 01, 2020 and I agree withthe physical exam as stated above. I have personally reviewed all available clinical data related totcarolyn's encounter including, but not limited to, radiology images and reports, laboratory data, and procedure reports. I agree with the resident's findings and have been fully involved in formulation of the assessment and plan. Blaine was non verbal for me but followed commands this morning. Ate all of his dinner and 75% of his breakfast yesterday per nursing. Appreciate nutrition assistance. If taking in sufficient caloriesmay consider pulling dobhoff tube prior to discharge. For now continue tube feeds. Goldy Gonzalez MD [facility] Division of Hospital [facility] MD - 03/31/2020 1:56 PM EDT Internal Medicine Daily Progress Note Patient: Blaine Crowley, 1955, [id number] Physician: Carly Morrison MD, Pager# [phone] GM 4 service Subjective/Interval History: No acute events overnight. Nonverbal this AM. Performs gesture with left hand in response to questions. Objective: Vitals: 03/31/20 1147 BP: 128/62 Pulse: 60 Resp: 18 Temp: 97.6 ?F (36.4 ?C) O2 Device: room air (03/31/20 1147) Flow (L/min): 2 (03/25/20 0437) General: Awake and alert. Nonverbal HEENT: Conjunctiva non-injected, sclera non-icteric. PERRL. NG tube in place CV: bradycardic, no murmurs, rubs, S3 or S4. Pulm: Breathing comfortably on room air. Inspiratory wheeze on inspiration present on R. No rales orrhonchi. Abd: Soft, nontender, nondistended Extremities: Warm and well perfused. No edema. Neuro: awake, minimally interactive. Wiggles toes on command L>R. Skin: No rashes, bruises, wounds There is no height or weight on file to calculate BMI. Data Review: Recent Labs 03/29/20 0312 03/29/20 0313 03/30/20 0403 03/30/20 1821 03/31/20 0421 WBC -- 10.94* -- 11.17* -- 11.90* HGB -- 13.6 -- 13.1* -- 12.8* HCT -- 41.9 -- 40.1 -- 39.2* PLATELET -- 189 -- 196 -- 197 SODIUM 141 -- < > 142 140 140 POTASSIUM 3.9 -- < > 3.8 4.1 3.9 CHLORIDE 109* -- < > 110* 105 106 CO2 23 -- < > 24 25 25 BUN 23* -- < > 27* 25* 24* CREATSERUM 1.00 -- < > 1.18 1.07 1.02 MAGNESIUM 2.1 -- < > 2.0 1.9 1.9 PHOSPHORUS 2.5 -- < > 3.7 4.1 3.8 PT 14.4* -- -- -- -- -- INR 1.1 -- -- -- -- -- < > = values in this interval not displayed. Lab Results Component Value Date LACT 2.2 (H) 03/25/2020 LACT 2.1 (H) 03/24/2020 LACT 2.9 (H) 03/23/2020 XR FLUORO MODIFIED BARIUM SWALLOW WITH SPEECH Final Result IMPRESSION: 1. Reduced visualization of the airway and cervical esophagus due to overlap by the shoulders. 2. Laryngeal penetration and silent aspiration of thin and nectar liquids. 3. Transient laryngeal penetration of honey liquids. 4. Functional impairments of the oral and pharyngeal phases as described above. 5. Nasoenteric tube present. Refer to the Speech and Language Pathologist's report for diet and therapy recommendations. Procedure performed by FLORY Barfield under the direct supervision of Dr. Chio Mcclellan. I personally viewed and interpreted these images and I have reviewed and approved this report. ABDOMEN 1 VIEW Final Result IMPRESSION: Dobbhoff tube tip in the proximal stomach. Further advancement is recommended if postpyloric positioning is needed. CHEST WITHOUT CONTRAST Final Result IMPRESSION: 1. Trace left pleural effusion with dependent atelectasis in the posterior left lung and generalized underaeration of the lung bases 2. No mass or lymphadenopathy. 3. Generalized calcified atherosclerotic disease of the coronary arteries. Dilated ascending thoracic aorta at 4.3 cm. ABDOMEN/PELVIS WITHOUT CONTRAST Final Result IMPRESSION: 1. No acute intra-abdominal findings to explain the patient's abdominal pain. 2. No bowel obstruction or bowel wall thickening. 3. Status post left nephrectomy. No abnormal density within the left nephrectomy bed. 4. Scattered colonic diverticulosis without evidence of acute diverticulitis. 5. Diffuse hepatic steatosis without focal hepatic lesion. ABDOMEN 1 VIEW PORTABLE Final Result IMPRESSION: NG tube in appropriate position. Stable mild dilation of the visualized colon which may represent an ileus or distal obstruction. ABDOMEN 1 VIEW PORTABLE Final Result IMPRESSION: Side port of the enteric tube is at the GE junction. Recommend advancement of 5 to 7 cm. CARDIOGRAM Final Result MRI BRAIN WITH AND WITHOUT CONTRAST Final Result IMPRESSION: Acute infarct in the right basal ganglia and internal capsule, without hemorrhage or mass effect. Extensive cystic encephalomalacia throughout the left frontal and parietal lobes with ex vacuo dilation of left lateral ventricle. Hemosiderin staining within the encephalomalacia is consistent with remote hemorrhagic change. There is also encephalomalacia in the right parietal lobe to a lesser extent. DUPLEX VENOUS EXTREMITY UPPER RIGHT Final Result US ABDOMEN RUQ/LIVER/GB Final Result IMPRESSION: Hepatic steatosis. No evidence of cirrhosis. No focal hepatic lesions. I personally viewed and interpreted these images and I have reviewed and approved this report. FLUORO LUMBAR PUNCTURE Final Result IMPRESSION: Successful fluoroscopic-guided lumbar puncture with 10 ml of clear colorless CSF removed. Opening pressure: 15 cm H2O. I personally viewed and interpreted these images and I have reviewed and approved this report. CHEST AP PORTABLE ED Final Result IMPRESSION: No acute cardiopulmonary disease. STROKE HEAD-STROKE ALERT ONLY Final Result IMPRESSION: No acute intracranial hemorrhage. Hypoattenuation along the anterior right basal ganglia is unchanged since the outside facility CT earlier same day, and could represent potentially an acute lacunar infarct, sequela of hypoxic-ischemic injury, or toxic metabolic process such as carbon monoxide toxicity. Remote infarcts of the left frontal, parietal, and temporal lobes as well as of the right parietal lobe and right basal ganglia with associated ex vacuo dilation of the left lateral ventricle. Findings were discussed with Ana Burns MD at 9 on March 21, 2020. I personally viewed and interpreted these images and I have reviewed and approved this report. Assessment/Plan: 64 y/o male with PMHx of CVA w/ residual right-sided weakness (2012) and seizures who presents with altered mental status now found to have acute right basal ganglia stroke. ? 1. Altered Mental Status / Acute CVA Right Basal Ganglia/ Internal Capsule and Subsequent Seizure Activity Patient found unresponsive 03/21/20. CT head demonstrated hypoattenuation along anterior R basal ganglia. APAP and ASA negative, UDS showed diphenhydramine. Labs for encephalopathy unremarkable. EEG without seizure. Infectious workup of blood cx NGTD and LP negative for infection. Neurology consult recommended stroke work up: TTE with EF 60%, negative bubble study. Neuro has since signed off. - Keppra 1000 BID - s/p Decadron 2. Dysphagia 2/2 CVA and Subsequent Seizure Activity - PT/OT/Speech, recSNF, dysphagia diet. dispo pending ability to remove NG -Following calorie counts 3. Leukocytosis Stable leukocytosis of unknown etiology, but likely related to steroids and/or stress. - Trend with CBC daily ? 4. Elevated Lactic Acid Stable lactic acidosis of unclear etiology. Possibly due to lack of hepatic clearance secondary to hepatosteatosis. CT chest and a/p negative for malignancy. -No longer trending lactic acid. Last lactic acid 2.2 on 03/25/2020 DVT prophylaxis with Lovenox Disposition: GM 4 for dysphagia Code status is FULL CODE Diet: NG Tube and PO Carly Morrison MD PGY-1 Associated attestation - Goldy Gonzalez MD - 03/31/2020 8:44 PM EDT Attending Attestation: I have personally seen and independently examined Blaine Crowley on March 31, 2020 and I agree withthe physical exam as stated above. I have personally reviewed all available clinical data related totodabrice's encounter including, but not limited to, radiology images and reports, laboratory data, and procedure reports. I agree with the resident's findings and have been fully involved in formulation of the assessment and plan. Blaine was non verbal for me this morning. Encouraging PO intake in hopes of removing dobhoff tube.Working on coordinating discharge to SNF once nutritional plan finalized and able to tolerate being out of restraints. Goldy Gonzalez MD [facility] Division of Hospital [facility] Mike, MERARI - 03/31/2020 1:48 PM EDT Acute Care Speech Language Pathology Treatment Note Diet and Medication Administration Recommendation: Recommended Method of Nutrition: PO Recommended Diet Grade: dysphagia- soft and bite sized (IDDSI 6) Recommended Liquid Consistency: liquid- moderately thick (IDDSI 3)/honey Medications: crushed Swallow Strategies: (Small bites/sips) Type of Cues/Supervision: 1:1 supervision(Requires direct feeding, upright position ) Assistance: nurse/aide Speech/Lang/Cog Therapy Frequency: 5 times a week Swallow Therapy Frequency: 5 times a week Other Recommendations: Oral care 3x/day as this has been shown to reduce the risk of pneumonia. Discharge Recommendations: Blaine Crowley would benefit from continued [employer] SUPER[employer]OR services with 24 hour supervision to address pt's severe non-fluent aphasia and pt's oropharyngeal dysphagia. SUBJECTIVE: RN communication: RN approved session: yes, RN Morris Status statements: Pt alert and RN feeding pt lunch upon [employer]PER[employer]OR entry. Pt approximately 60 degrees upright upon entry. Rn reported a reduction in cough frequency compared to prior date. Pain: Nonverbal indicator not present OBJECTIVE: (Treatment Activity Completed) Swallow: 1. ?Patient will demonstrate safe and efficient swallow of Soft and Bite Sized (IDDSI 6)/Dysphagia Advanced solids and Moderately thick (IDDSI 3)/Honey thick liquids without signs/sx of aspiration riskon 10/10 bolus trials given max assist over 2 sessions. Addressed via pt's lunch: 1/2 of soft and bite sized noodles over mashed potatoes, 1 cup peaches. RN reported completion of yogurt prior to entry. Pt with functional acceptance, prolonged bolus formation with holding x3. Verbal cues were effective for pt to initiate oral clearance. No overt signs of p enetration/aspiration across trials. Goal in progress - met 1/2 sessions this date. 2. ?Patient will complete lingual strengthening and bolus control activities to improve efficiency of oral phase, given mod assist over 2 sessions. Addressed lingual strengthening via use of [place] Oral Pressure Instrument (IOPI). Obtained baseline of lingual strength in superior plane= 52 kPa. Completed 8 reps of isokinetic resistance exercises at65% of kPa max = 35 kPa. Able to return demonstration of each exercises with max cues. Pt repeatedly attempted to gum/chew on bulb rather than use lingual elevation. Re-positioned between each repetition. Unable to provide visual model d/t masking requirements for all hospital staff at this time. Pt'saphasia limited ability to report fatigue but pt waved away bulb and closed eyes after 8 reps. Appeared to indicate fatigue. 3. ?Patient will complete effortful swallow ex 10 repetitions to improve pharyngeal contraction for bolus clearance and closure of laryngeal vestibule during the swallow for airway protection, given max assist ?As able with cognition over 2 sessions. Probed pt's ability to complete volitional swallow. Consistent with 03/30 session, pt did not appearto initiate a volitional swallow despite max prompts/models. Goal in progress. Speech: 1. The patient will identify common objects from a field of 2 by name given max assist from [employer] SUPERVISOR?in order to promote functional communication ability across 3-4 sessions. ? Addressed in horizontal and vertical planes x2 targets each. Pt nodded his head in neutral x1/4 trials, without other attempts to communicate or indicate a preference. Pt was watching tv. Turned off tv to reduce distraction and pt continued with the same pattern. Goal in progress. 2. The patient will answer yes/no to basic questions related to self and current environment with 60% accuracy given max assist from [employer]PERVISOR in order to promote functional communication source across 3-4 sessions. ? ? Pt initiated a Y/N type response in 1/10 prompts this date. Pt nodded to indicate yes when asked, are you full? Despite max cues, repetition and po options, pt did not initiate additional responses. Goal In progress. 3. The patient will imitate vowel sounds and bilabials given max assist from [employer]PER[employer]OR in order to promoteincreased verbalizations across 3-4 sessions. Given max verbal cues and tactile cues, pt imitate vowels x2/5 trials, bilabial sounds x1/4 (my) this date. This was a progression from 03/30. Pt with increased ability to initiate - though he remains limited. Goal in progress. ? 4. The patient will follow 1-step commands with 80% accuracy when given max A from [employer]PERVISOR in order to promote improved ability to participate with therapy across all disciplines.? Addressed with 1=3/5 accuracy this date. This was an increase from prior session. Manipulatives were most effective (I.e. cup for take a drink). Without a manipulative, pt with 0/2 accuracy. Goal inprogress. [employer]PER[employer]OR Outcomes Tracking Communicate basic wants and needs?: no Demo insight/appreciation of deficits?: no Complete basic problem solving?: no ASSESSMENT: Diagnosis & Severity rating: severe non-fluent aphasia, moderate oropharyngeal dysphagia consistent with MBS from 03/29 Progress toward goals: progressing Prognosis: good PLAN: Goal management Continue to address as goals remain appropriate Recommendations and referrals See top of note for further recommendations Time in: 1310 Time out: 1347 I used facemask,protective eye shield, and gloves in today's patient interaction. I was assisted by RN during this visit. Speech-Language Pathologist: Asya Mike MA, CCC-RECYCLING CREW SUPERVISOR, CBIS Pager: [phone] Email: [email or web address] *Also available via [employer] Chat Sunday-Sunday 07:30-16:00 Upon discontinuation of Acute Care Speech Therapy Services or patient discharge from the hospital this note represents the current Speech Therapy Discharge Summary Tobin Murguia, PT - 03/31/2020 8:51 AM EDT Acute Care Physical Therapy Treatment Note Blaine Crowley would benefit at this time from continued PT services with 24 hour supervision needed for mobility needs. Frequency: 5x/week 03/31/20 0851 Subjective RN Approved Intervention as tolerated Existing Precautions/Restrictions fall Subjective Reports Pt agreeable to therapy, Able to respond yes/no. Denies pain at this time. Cognitive Status Examination Orientation Status (Cognition) oriented to;person Level of Consciousness alert;cooperative Able to Follow Commands (Communication) mild impairment Personal Safety and Judgment impaired General Pain Documentation (Adult, OB, Peds) Presence of Pain denies pain/discomfort Objective Therapeutic Interventions Blaine Crowley is supine in bed, alert and agreeable to therapy. Pt is able to perform supine in sit transfer with max assist x2 and assist with clearing LE's over EOB and sitting upright. Cues to engage and core and reach to assist with transfer. Pt then sat EOB for >23minutes with Min to Max assist (mostly Mod-Max A with occasional Krystal) to maintain balance. Tends tolean towards L and grasp EOB with L hand for balance support. AROM L LE ankle pumps, long arc quad x15 and AAROM/PROM R LE ankle pumps, long arc quad x15 ea. Seated posture correction cues throughout session to support lumbar and thoracic spine and prevent L lateral lean. Weight shifts L x8 with cues for L UE push to correct to upright position. AAROM cervical retraction with extension to correct posture upright and to R to be closer to midline. Pt able to maintain position for ~10-15 seconds beforefatigue sets in. Soft tissue mobilization bilateral upper trap/scalenes to reduce L side tightness and improve R side muscle activation. Pt returned to supine in bed with same level of assist for supine>sit with help at LE's and trunk. Boosted max assist x2 with pt able to assist with partial bridge of LLE. Session concluded with pt supine in bed, resting comfortably, call light and all needs within reach, bed exit alarm armed, RN in room, notified of pt's progress, and gentle towel/pillow bolster on L side of head/neck to prevent L lateral flexion for prolonged periods. This co-treatment session performed between PT and OT was beneficial, necessary and provided distinct services in progressing this person?s individual plan of care. This discipline addressed the following goal(s): progress sitting tolerance, with the following progress made: increased to 23 minutes with Min to Max assist. Balance Skills Assessment, Rehab Eval Sitting Balance: Static poor balance (poor (+)) Sitting Balance: Dynamic poor balance Bed Mobility Skill: Scooting/Bridging, Rehab Eval Level of [place]: Scoot/Bridge maximum assist (25% patients effort) Physical Assist/Nonphysical Assist: Scoot/Bridge 2 person assist;verbal cues;supervision Bed Mobility Skill: Sit to Supine, Rehab Eval Level of [place]: Sit/Supine maximum assist (25% patients effort) Physical Assist/Nonphysical Assist: Sit/Supine set-up required;supervision;verbal cues;2 person assist Bed Mobility Skill: Supine to Sit, Rehab Eval Level of Yolo: Supine/Sit maximum assist (25% patients effort) Physical Assist/Nonphysical Assist: Supine/Sit 2 person assist;verbal cues;nonverbal cues (demo/gestures) Transfer Skill: Sit To Stand, Rehab Eval [place] (Sit-Stand Transfers) unable to assess CURRENT -[facility] Basic Mobility Inpatient Short Form Turning over in bed 1 - Total Assistance Sitting/standing from chair 1 - Total Assistance Moving from lying on back to sitting 1 - Total Assistance Moving to and from bed to chair 1 - Total Assistance Walk in hospital room 1 - Total Assistance Climbing 3-5 steps with a railing 1 - Total Assistance CURRENT -[facility] Mobility Raw Score 6 CURRENT -[facility] Mobility Functional Limitation/Modifier 100.00% Currently Impaired in Basic Mobility Currently Impaired in Basic Mobility - CN Projected AM-[facility] Mobility Raw Score 10 Projected AM-[facility] Mobility Functional Limitation/Modifier 76.75% Projected Functional Impairment in Basic Mobility Clinical Impression Therapy Frequency 5 times a week PT Therapy Completed Yes Continue care plan yes Today's Treatment Included bed level mobility, sitting tolerance, seated LE therex, posture corrections Therapist Recommendations At Discharge Recommendations PT Services recommended at Discharge Assessment VTE Prevention/Management On - SCD Factors that modified this intervention fatigue, decreased activity tolerance Progress toward goals Goals Goal 1 Patient will complete sit to supine and supine to sit with mod level of assist to progress toprior level of function by discharge. -- progressing, minimal change this date, but with pt assisting with engaging supine to sit Goal 2 Pt will complete sit to stand and stand to sit transfer with min of 2 assist with no AD to progress to prior level of function by discharge -- not progressing Goal 3 Patient will participate in 20 minutes of static/dynamic sitting balance activity with stand by level of assist in order to increase core strength and balance by discharge -- progressing, >23minutes of sitting with Min to (mostly) Mod-Max A sitting Goal 4 Patient will independently complete bilateral UE/LE therapeutic exercise program 2 sets x 15 reps in order to increase strength for improved mobility by discharge. -- progressing Plan Plan for next visit PT to follow, progress sitting tolerance and posture corrections Maintain frequency yes Time In: 08 Time Out: 925 I used gloves, facemask and goggles in today's patient interaction. I was assisted by HIPOLITO Fields during this visit. Chris Mistry, DPT License # [id number] Upon discontinuation of Acute Care Physical Therapy Services or patient discharge from the hospital this note represents the current Physical Therapy Discharge Summary. Goldy Escalona OTA - 03/31/2020 8:50 AM EDT Occupational Therapy Treatment/ Progress Note Per the supervising OT the recommendations and frequency are as follows: Discharge Recommendation: Blaine Crowley would benefit from continued OT services with 24 hour supervision needed for self care and safety needs. Frequency: 5x/week 03/31/20 0850 Subjective RN Approved Intervention as tolerated Existing Precautions/Restrictions fall Subjective Reports Pt non verbal throughout session but cooperative. Cognitive Status Examination Orientation Status (Cognition) oriented to;person Level of Consciousness alert;cooperative Able to Follow Commands (Communication) mild impairment Personal Safety and Judgment impaired General Pain Documentation (Adult, OB, Peds) Presence of Pain non-verbal indicator of pain/discomfort not present Bed Mobility Skill: Supine to Sit, Rehab Eval Level of Yolo: Supine/Sit maximum assist (25% patients effort) Physical Assist/Nonphysical Assist: Supine/Sit 2 person assist;verbal cues;supervision CURRENT -[facility] Daily Activity Inpatient Short Form Putting on/Taking Off Lower Body Clothing 1 - Total Assistance Bathing 1 - Total Assistance Toileting 1 - Total Assistance Putting on/Taking Off Upper Body Clothing 2 - A Lot of Assistance Grooming 2 - A Lot of Assistance Eating 3 - A Little Assistance CURRENT [facility] Activity Raw Score 10 CURRENT [facility] Activity Functional Limitation/Modifier 74.70% Currently Impaired in Daily Activity -CL Assessment Assessment Narrative Pt progressing towards goal completion at a fair rate with increasing strength and activity tolerance. Pt current limitations include below baseline activity tolerance resulting inincreased activity demands for ADL tasks. Continue skilled OT services to address these deficits andmaximize independence and safety with ADLs for a safe discharge and progressing as appropriate. Clinical Impression OT Therapy Completed Yes OT Therapies Still to Complete 2 Today's Treatment Included Pt completed supine to sit with max assist x2 to lift trunk and transition BLE over EOB. Pt tolerated approximately 20 min of static sitting consistently requiring max assistfor proper midline alignment with brief moments of mod assist. During this time patient focused on support head in a neutral position along with improving core strength to ease activity demands of ADL tasks. PROM of right hand was provided throughout all planes of each digit due to increased spasticity noted on this date. Pt was returned to a supine position with max assist x2. Call light within reach, all current needs met. Continue care plan yes Goals Goals For Discharge Goals Goal 1 Pt will complete UE dressing with mod A and adaptive strategies Goal 2 Pt will complete LE dressing task with max a x1 Goal 3 Pt will complete upper body bathing with good command following and mod A Goal 4 Pt will demonstrate safe functional toilet transfer to [facility] with max A x2 Goal 5 Pt will tolerate light grooming activity seated EOB x10 minutes with improved attention and command following with min A PROGRESSING Goal 6 Pt will tolerate RUE passive or self ROM exercises for increased functional use RUE 3x per day PROGRESSING Plan Plan Narrative Continue OT services according to OT plan of care. Therapist Information License # [id number] Pager # [phone] I used gloves, facemask and goggles in today's patient interaction. I was assisted by no one during this visit. Time in: 849 Time out: 928 Total Time: 39 Goldy Mar JUAN/L License # [id number] Pager Number: [phone] I have read and agree with the above plan of care. Upon discontinuation of Acute Care Occupational Therapy Services or patient discharge from the hospital this note represents the current Occupational Therapy Discharge Summary. EPIFANIO Dominguez/L License #: [id number] Pager #: [phone] shley Borrero LISW-S - 03/30/2020 2:13 PM EDTProgression of Care Note Expected Discharge Date: 04/02/2020 Medical Milestones Remaining: Dobhoff in place, RECYCLING CREW SUPERVISOR for dysphagia, optimizing oral intake Assessment and Discharge Plan as of 03/30/2020 2:13 PM Plan was not discussed with significant other on this date. Information from the patient, family, caregiver or other authorized food service representative(s) was obtained telephonically. Barriers to Discharge: Complex Disposition Explanation of Barriers: Dobhoff Readmission Risk Score Risk of Readmission: 13 Category Reference: ? Low: 0% - 16% ? Medium ? Low: 17% - 32% ? Medium ? High: 33% - 48% ? High: 49% - 100% Ashley LARES Clinical [facility] [phone] Weekend coverage info: [facility]: CCM: [phone] / Director Emergency Services: [phone] Mariscal: CCM: [phone] / Director Emergency Services: [phone] Hansel: CCM : [phone] / Director Emergency Services: [phone] Johnny/MONAU/PCU Umberto: CCM: [phone] / Director Emergency Services: [phone] Supriya Wilson LSW - 03/30/2020 2:08 PM EDTPlacement Plan ? This assessment was completed?telephonically. ? Expected Discharge Date:?03/31/2020 ? Referred Level of Care:??SNF ? Barriers:?Medical Stability, Transportation ? Current Referrals and Status 1.??[facility]-Reviewing Clinical 2.??[facility]-Reserved 3.??[facility]-Reviewing Clinical 4.??[facility]-Reserved 5.??[facility]-Reviewing Clinical 6.??[facility]-Reviewing Clinical 7. Brent Scales-In Review Patient accepted to [facility] SNF, and they can accept patient with the Dobhoff. CHEMISTRY SPECIALIST spoke with patients significant other (HCPOA) and she is in agreement that patient can discharge [facility] at discharge. CHEMISTRY SPECIALIST reserved SNF and updated CCM and Physician. Social work willremain available to assist as needed. PRIYA Longoria, PROJECT RESERVOIR ENGINEER Medical Social Work [phone] Ramses Morillo MD - 03/30/2020 11:40 AM EDT Internal Medicine Daily Progress Note Patient: Blaine Crowley, 1955, [id number] Physician: Ramses Flanagan MD, GM 4 service Subjective/Interval History: Spoke once today, no complaints. Otherwise non verbal. Objective: Vitals: 03/30/20 0856 BP: 128/61 Pulse: 52 Resp: 18 Temp: 98.2 ?F (36.8 ?C) O2 Device: room air (03/30/20 0001) Flow (L/min): 2 (03/25/20 0437) General: awake, alert. Intermittently speaks HEENT: NC/AT, PERRL. NG tube in place CV: bradycardic, no murmurs, rubs, S3 or S4. Pulm: Normal work of breathing. Lungs clear to auscultation bilaterally. No wheezes, rales or rhonchi. Abd: Soft Extremities: Warm and well perfused. No edema. Neuro: awake, minimally interactive. Squeezes hand, wiggles toes on command. Skin: No areas of ecchymoses, erythema, rashes or wounds found There is no height or weight on file to calculate BMI. Data Review: Recent Labs 03/28/20 0101 03/29/20 0312 03/29/20 0313 03/29/20 1707 03/30/20 0403 WBC 11.93* -- -- 10.94* -- 11.17* HGB 15.5 -- -- 13.6 -- 13.1* HCT 47.3 -- -- 41.9 -- 40.1 PLATELET 197 -- -- 189 -- 196 SODIUM 143 < > 141 -- 142 142 POTASSIUM 3.6 < > 3.9 -- 3.7 3.8 CHLORIDE 108 < > 109* -- 107 110* CO2 23 < > 23 -- 26 24 BUN 26* < > 23* -- 24* 27* CREATSERUM 0.99 < > 1.00 -- 1.05 1.18 MAGNESIUM 2.1 < > 2.1 -- 2.1 2.0 PHOSPHORUS 3.4 < > 2.5 -- 3.1 3.7 PT -- -- 14.4* -- -- -- INR -- -- 1.1 -- -- -- < > = values in this interval not displayed. Lab Results Component Value Date LACT 2.2 (H) 03/25/2020 LACT 2.1 (H) 03/24/2020 LACT 2.9 (H) 03/23/2020 XR FLUORO MODIFIED BARIUM SWALLOW WITH SPEECH Final Result IMPRESSION: 1. Reduced visualization of the airway and cervical esophagus due to overlap by the shoulders. 2. Laryngeal penetration and silent aspiration of thin and nectar liquids. 3. Transient laryngeal penetration of honey liquids. 4. Functional impairments of the oral and pharyngeal phases as described above. 5. Nasoenteric tube present. Refer to the Speech and Language Pathologist's report for diet and therapy recommendations. Procedure performed by FLORY Barfield under the direct supervision of Dr. Chio Mcclellan. I personally viewed and interpreted these images and I have reviewed and approved this report. ABDOMEN 1 VIEW Final Result IMPRESSION: Dobbhoff tube tip in the proximal stomach. Further advancement is recommended if postpyloric positioning is needed. CHEST WITHOUT CONTRAST Final Result IMPRESSION: 1. Trace left pleural effusion with dependent atelectasis in the posterior left lung and generalized underaeration of the lung bases 2. No mass or lymphadenopathy. 3. Generalized calcified atherosclerotic disease of the coronary arteries. Dilated ascending thoracic aorta at 4.3 cm. ABDOMEN/PELVIS WITHOUT CONTRAST Final Result IMPRESSION: 1. No acute intra-abdominal findings to explain the patient's abdominal pain. 2. No bowel obstruction or bowel wall thickening. 3. Status post left nephrectomy. No abnormal density within the left nephrectomy bed. 4. Scattered colonic diverticulosis without evidence of acute diverticulitis. 5. Diffuse hepatic steatosis without focal hepatic lesion. ABDOMEN 1 VIEW PORTABLE Final Result IMPRESSION: NG tube in appropriate position. Stable mild dilation of the visualized colon which may represent an ileus or distal obstruction. ABDOMEN 1 VIEW PORTABLE Final Result IMPRESSION: Side port of the enteric tube is at the GE junction. Recommend advancement of 5 to 7 cm. CARDIOGRAM Final Result MRI BRAIN WITH AND WITHOUT CONTRAST Final Result IMPRESSION: Acute infarct in the right basal ganglia and internal capsule, without hemorrhage or mass effect. Extensive cystic encephalomalacia throughout the left frontal and parietal lobes with ex vacuo dilation of left lateral ventricle. Hemosiderin staining within the encephalomalacia is consistent with remote hemorrhagic change. There is also encephalomalacia in the right parietal lobe to a lesser extent. DUPLEX VENOUS EXTREMITY UPPER RIGHT Final Result US ABDOMEN RUQ/LIVER/GB Final Result IMPRESSION: Hepatic steatosis. No evidence of cirrhosis. No focal hepatic lesions. I personally viewed and interpreted these images and I have reviewed and approved this report. FLUORO LUMBAR PUNCTURE Final Result IMPRESSION: Successful fluoroscopic-guided lumbar puncture with 10 ml of clear colorless CSF removed. Opening pressure: 15 cm H2O. I personally viewed and interpreted these images and I have reviewed and approved this report. CHEST AP PORTABLE ED Final Result IMPRESSION: No acute cardiopulmonary disease. STROKE HEAD-STROKE ALERT ONLY Final Result IMPRESSION: No acute intracranial hemorrhage. Hypoattenuation along the anterior right basal ganglia is unchanged since the outside facility CT earlier same day, and could represent potentially an acute lacunar infarct, sequela of hypoxic-ischemic injury, or toxic metabolic process such as carbon monoxide toxicity. Remote infarcts of the left frontal, parietal, and temporal lobes as well as of the right parietal lobe and right basal ganglia with associated ex vacuo dilation of the left lateral ventricle. Findings were discussed with Ana Burns MD at 2118 on March 21, 2020. I personally viewed and interpreted these images and I have reviewed and approved this report. Assessment/Plan: 64 y.o. male with a PMHx of CVA w/ residual right-sided weakness (2012) and Seizures who presents with altered mental status now found to have acute stroke. ? Altered Mental Status / Acute Encephalopathy likely 2/2 acute CVA in right basal ganglia/internal capsule and subsequent seizure activity and post ictal state c/b dysphagia Patient found unresponsive 03/21 AM. Other work up- APAP, ASA negative. CK 161. UDS only w/ diphenhydramine. Labs for encephalopathy unremarkable. EEG w/o seizure. Blood cultures NGTD, stop all abx - Neurology c/s who recommended stroke work up: TTE with EF 60%, negative bubble study. Neuro has since signed off - keppra increased to 1000 BID - s/p LP with IR, labs neg for infection - MRI Brain per Neurology, read as above - s/p Decadron - PT/OT/Speech, rec SNF, dysphagia diet. dispo pending ability to remove NG ? Leukocytosis Unclear etiology. Likely related to steroids +/- stress. - Trend with CBC daily ? Elevated Lactic Acid Unclear etiology. likely lack of clearance - RUQ unremarkable. - trend - CT chest and a/p negative for malignancy. Likely related to steatosis DVT prophylaxis with Lovenox Disposition: GM 4 for dysphagia Code status is FULL CODE Associated attestation - Goldy Gonzalez MD - 03/30/2020 5:12 PM EDT Attending Attestation: I have personally seen and independently examined Blaine Crowley on March 30, 2020 and I agree withthe physical exam as stated above. I have personally reviewed all available clinical data related totoday's encounter including, but not limited to, radiology images and reports, laboratory data, and procedure reports. I agree with the resident's findings and have been fully involved in formulation of the assessment and plan. Blaine said he was doing alright on rounds this morning. Follows commands intermittently. Passed RECYCLING CREW SUPERVISOR eval yesterday so seeing home much PO intake he can take in with calorie counts. If eating enoughcan try removing dobhoff tube. Working on post hospitalization disposition. Goldy Gonzalez MD Chocolatier of Internal Medicine Division of Hospital Medicine [facility] SystemAsya Mike, RECYCLING CREW SUPERVISOR - 03/30/2020 11:05 AM EDT Acute Care Speech Language Pathology Treatment Note Diet and Medication Administration Recommendation: Recommended Method of Nutrition: Combination of PO and NPO, Short-term alternate nutrition Recommended Diet Grade: dysphagia- soft and bite sized (IDDSI 6) Recommended Liquid Consistency: liquid- moderately thick (IDDSI 3)/honey Medications: crushed Swallow Strategies: (Small bites/sips) Type of Cues/Supervision: 1:1 supervision(reqiures direct feeding) Assistance: nurse/aide Speech/Lang/Cog Therapy Frequency: 5 times a week Swallow Therapy Frequency: 5 times a week Other Recommendations: Oral care 3x/day as this has been shown to reduce the risk of pneumonia. Discharge Recommendations: Blaine Crowley would benefit from continued RECYCLING CREW SUPERVISOR services with 24 hour supervision to address pt's severe non-fluent aphasia and pt's oropharyngeal dysphagia. SUBJECTIVE: RN communication: RN approved session: yes, RN Morris Status statements: Pt alert and RN feeding pt breakfast upon RECYCLING CREW SUPERVISOR entry. Pt approximately 30 degrees upright upon entry with cough. Positioned pt to upright (approximately 80 degrees) and provided education regarding the need for upright positioning during po intake. Pain: Nonverbal indicator not present OBJECTIVE: (Treatment Activity Completed) Swallow: 1. ?Patient will demonstrate safe and efficient swallow of Soft and Bite Sized (IDDSI 6)/Dysphagia Advanced solids and Moderately thick (IDDSI 3)/Honey thick liquids without signs/sx of aspiration riskon 10/10 bolus trials given max assist over 2 sessions. Addressed via pt's breakfast: 1 cup applesauce, 3/4 C of eggs and 4 oz of moderately thick liquids.Pt required 1:1 feeding across all boluses. After positioned upright to approximately 80 degrees, nofurther signs of penetration/aspiration during po intake. Pt benefits from slowed rate and redirection to po intake in oral cavity as he is easily distracted. Goal in progress. 2. ?Patient will complete lingual strengthening and bolus control activities to improve efficiency of oral phase, given mod assist over 2 sessions. Did not address d/t focus on bolus challenge trials, RN education and communication. 3. ?Patient will complete effortful swallow ex 10 repetitions to improve pharyngeal contraction for bolus clearance and closure of laryngeal vestibule during the swallow for airway protection, given max assist ?As able with cognition over 2 sessions. Probed pt's ability to complete volitional swallow. Pt did not appear to initiate despite max cues.Will continue to address across 1-2 session to determine if pt is cognitively able to initiate an exercise regimen Speech: 1. The patient will identify common objects from a field of 2 by name given max assist from RECYCLING CREW SUPERVISOR?in order to promote functional communication ability across 3-4 sessions. ? Addressed in horizontal and vertical planes x3 targets each. Pt nodded his head in neutral x2/6 trials, without other attempts to communicate or indicate a preference. Goal in progress. Max cues wereineffective. 2. The patient will answer yes/no to basic questions related to self and current environment with 60% accuracy given max assist from RECYCLING CREW SUPERVISOR in order to promote functional communication source across 3-4 sessions. ? ? Pt initiated a Y/N type response in /10 prompts this date. Pt stated, yea after a 3 second delay when prompted, Is your name Blaine? Pt maintained eye contact and nodded inconsistently during RECYCLING CREW SUPERVISOR prompts without further appreciable attempts to respond to Y/N prompt. Goal In progress. 3. The patient will imitate vowel sounds and bilabials given max assist from RECYCLING CREW SUPERVISOR in order to promoteincreased verbalizations across 3-4 sessions. Despite max verbal cues and tactile cues, pt did not imitate vowel or bilabial sounds this date. Typically, would provide a model but staff are currently required to wear masks d/t covid precautions with all patients. Pt opened mouth and closed repeatedly when prompted to smile, open and say ahor ee. goal in progress. ? 4. The patient will follow 1-step commands with 80% accuracy when given max A from RECYCLING CREW SUPERVISOR in order to promote improved ability to participate with therapy across all disciplines.? Addressed an pt with 1/5 accuracy this date. Suspect reflexive grasp rather than true command following. However, utilized grasp and provided positive reinforcement. Goal in progress as models and tactile cues were ineffective. RECYCLING CREW SUPERVISOR Outcomes Tracking Communicate basic wants and needs?: no Demo insight/appreciation of deficits?: no Complete basic problem solving?: no ASSESSMENT: Diagnosis & Severity rating: severe non-fluent aphasia, moderate oropharyngeal dysphagia consistent with MBS from 03/29 Progress toward goals: progressing Prognosis: good PLAN: Goal management Continue to address as goals remain appropriate Recommendations and referrals See top of note for further recommendations Time in: 1035 Time out: 1100 I used facemask,protective eye shield, and gloves in today's patient interaction. I was assisted by RN during this visit. Speech-Language Pathologist: Asya Mike MA, [facility]-RECYCLING CREW SUPERVISOR, CBIS Pager: [phone] Email: [email or web address] *Also available via [employer] Secure Chat Sunday-Sunday 07:30-16:00 Upon discontinuation of Acute Care Speech Therapy Services or patient discharge from the hospital this note represents the current Speech Therapy Discharge Summary Cindy Harris RN - 03/29/2020 11:49 AM EDTProgression of Care Note Expected Discharge Date: 03/31/2020 Medical Milestones Remaining: Altered Mental Status / Acute Encephalopathy likely 2/2 acute CVA. Seizure activity and post ictal state. Assessment and Discharge Plan as of 03/29/2020 11:49 AM Patient to discharge to SNF. Plan was discussed with Significant Other/HCPOA on this date. Information from the patient, family, caregiver or other authorized food service representative(s) was obtained telephonically. Anticipated discharge disposition: Longterm Facility Anticipated Services at Discharge: Occupational Therapy, Longterm, Physical Therapy Explanation of Barriers: SW assisting with SNF placement. Readmission Risk Score Risk of Readmission: 12 Category Reference: ? Low: 0% - 16% ? Medium ? Low: 17% - 32% ? Medium ? High: 33% - 48% ? High: 49% - 100% Supriya Brewster LSW - 03/29/2020 10:29 AM EDTPlacement Plan ? This assessment was completed?telephonically. ? Expected Discharge Date:?03/31/2020 ? Referred Level of Care:??SNF ? Barriers:?Medical Stability, Transportation ? Current Referrals and Status 1.??[facility]-Reviewing Clinical 2.??[facility]-Reviewing Clinical 3.??[facility]-Reviewing Clinical 4.??[facility]-Reserved 5.??[facility]-Reviewing Clinical 6.??[facility]-Reviewing Clinical 7. [facility]-In Review 3:53 PM Addendum: LTACH referral made for possible discharge option. [facility], is able to accept patient pending removal of the Dobhoff (No NG Tube) and the TF Solution will need changed to Isosource 1.5 CHEMISTRY SPECIALIST spoke with Admssions from [facility] and she is having difficulty accessing the referral. CHEMISTRY SPECIALIST sent clinical through her email address [email or web address]. Social work will remain available to assist as needed. PRIYA Longoria, JANEL Medical Social Work [phone] Ramses Morillo MD - 03/29/2020 10:16 AM EDT Internal Medicine Daily Progress Note Patient: Blaine Crowley, 1955, [id number] Physician: Ramses Flanagan MD, GM 4 service Subjective/Interval History: Non verbal again today, not complaining of pain. Objective: Vitals: 03/29/20 0745 BP: 112/53 Pulse: 51 Resp: 14 Temp: 98 ?F (36.7 ?C) O2 Device: room air (03/29/20 0859) Flow (L/min): 2 (03/25/20 0437) General: more awake, non verbal HEENT: NC/AT, PERRL. NG tube in place CV: bradycardic, no murmurs, rubs, S3 or S4. Pulm: Normal work of breathing. Lungs clear to auscultation bilaterally. No wheezes, rales or rhonchi. Abd: Soft Extremities: Warm and well perfused. No edema. Neuro: awake, minimally interactive. Squeezes hand, wiggles toes on command. Non verbal Skin: No areas of ecchymoses, erythema, rashes or wounds found There is no height or weight on file to calculate BMI. Data Review: Recent Labs 03/27/20 0012 03/28/20 0101 03/28/20 1807 03/29/20 0312 03/29/20 0313 WBC 9.57 11.93* -- -- 10.94* HGB 14.4 15.5 -- -- 13.6 HCT 44.4 47.3 -- -- 41.9 PLATELET 205 197 -- -- 189 SODIUM 140 143 141 141 -- POTASSIUM 3.5 3.6 3.7 3.9 -- CHLORIDE 108 108 107 109* -- CO2 23 23 23 23 -- BUN 30* 26* 23* 23* -- CREATSERUM 0.95 0.99 0.92 1.00 -- MAGNESIUM 2.4 2.1 2.0 2.1 -- PHOSPHORUS 3.4 3.4 2.8 2.5 -- PT -- -- -- 14.4* -- INR -- -- -- 1.1 -- Lab Results Component Value Date LACT 2.2 (H) 03/25/2020 LACT 2.1 (H) 03/24/2020 LACT 2.9 (H) 03/23/2020 XR ABDOMEN 1 VIEW Final Result IMPRESSION: Dobbhoff tube tip in the proximal stomach. Further advancement is recommended if postpyloric positioning is needed. CHEST WITHOUT CONTRAST Final Result IMPRESSION: 1. Trace left pleural effusion with dependent atelectasis in the posterior left lung and generalized underaeration of the lung bases 2. No mass or lymphadenopathy. 3. Generalized calcified atherosclerotic disease of the coronary arteries. Dilated ascending thoracic aorta at 4.3 cm. ABDOMEN/PELVIS WITHOUT CONTRAST Final Result IMPRESSION: 1. No acute intra-abdominal findings to explain the patient's abdominal pain. 2. No bowel obstruction or bowel wall thickening. 3. Status post left nephrectomy. No abnormal density within the left nephrectomy bed. 4. Scattered colonic diverticulosis without evidence of acute diverticulitis. 5. Diffuse hepatic steatosis without focal hepatic lesion. ABDOMEN 1 VIEW PORTABLE Final Result IMPRESSION: NG tube in appropriate position. Stable mild dilation of the visualized colon which may represent an ileus or distal obstruction. ABDOMEN 1 VIEW PORTABLE Final Result IMPRESSION: Side port of the enteric tube is at the GE junction. Recommend advancement of 5 to 7 cm. CARDIOGRAM Final Result MRI BRAIN WITH AND WITHOUT CONTRAST Final Result IMPRESSION: Acute infarct in the right basal ganglia and internal capsule, without hemorrhage or mass effect. Extensive cystic encephalomalacia throughout the left frontal and parietal lobes with ex vacuo dilation of left lateral ventricle. Hemosiderin staining within the encephalomalacia is consistent with remote hemorrhagic change. There is also encephalomalacia in the right parietal lobe to a lesser extent. DUPLEX VENOUS EXTREMITY UPPER RIGHT Final Result US ABDOMEN RUQ/LIVER/GB Final Result IMPRESSION: Hepatic steatosis. No evidence of cirrhosis. No focal hepatic lesions. I personally viewed and interpreted these images and I have reviewed and approved this report. FLUORO LUMBAR PUNCTURE Final Result IMPRESSION: Successful fluoroscopic-guided lumbar puncture with 10 ml of clear colorless CSF removed. Opening pressure: 15 cm H2O. I personally viewed and interpreted these images and I have reviewed and approved this report. CHEST AP PORTABLE ED Final Result IMPRESSION: No acute cardiopulmonary disease. STROKE HEAD-STROKE ALERT ONLY Final Result IMPRESSION: No acute intracranial hemorrhage. Hypoattenuation along the anterior right basal ganglia is unchanged since the outside facility CT earlier same day, and could represent potentially an acute lacunar infarct, sequela of hypoxic-ischemic injury, or toxic metabolic process such as carbon monoxide toxicity. Remote infarcts of the left frontal, parietal, and temporal lobes as well as of the right parietal lobe and right basal ganglia with associated ex vacuo dilation of the left lateral ventricle. Findings were discussed with Ana Burns MD at 9 on March 21, 2020. I personally viewed and interpreted these images and I have reviewed and approved this report. FLUORO MODIFIED BARIUM SWALLOW WITH SPEECH (Results Pending) Assessment/Plan: 64 y.o. male with a PMHx of CVA w/ residual right-sided weakness (2012) and Seizures who presents with altered mental status now found to have acute stroke. ? Altered Mental Status / Acute Encephalopathy likely 2/2 acute CVA in right basal ganglia/internal capsule and subsequent seizure activity and post ictal state Patient found unresponsive 03/21 AM. Other work up- APAP, ASA negative. CK 161. UDS only w/ diphenhydramine. Labs for encephalopathy unremarkable. EEG w/o seizure. Blood cultures NGTD, stop all abx - Neurology c/s who recommended stroke work up: TTE with EF 60%, negative bubble study. Neuro has since signed off - keppra increased to 1000 BID - s/p LP with IR, labs neg for infection - MRI Brain per Neurology, read as above - s/p Decadron - PT/OT/Speech, rec SNF and PEG - NG tube placed, GI c/s for PEG ? Leukocytosis Unclear etiology. Likely related to steroids +/- stress. - Trend with CBC daily - send UA with reflex to culture ? Elevated Lactic Acid Unclear etiology. likely lack of clearance - RUQ unremarkable. - trend - CT chest and a/p negative for malignancy. Likely related to steatosis DVT prophylaxis with Lovenox Disposition: 4 for PEG placement and disposition Code status is FULL CODE Associated attestation - Goldy Gonzalez MD - 03/29/2020 4:19 PM EDT Attending Attestation: I have personally seen and independently examined Blaine Crowley on March 29, 2020 and I agree withthe physical exam as stated above. I have personally reviewed all available clinical data related totodabrice's encounter including, but not limited to, radiology images and reports, laboratory data, and procedure reports. I agree with the resident's findings and have been fully involved in formulation of the assessment and plan. Blaine mental status remains stable. Dobbhoff tube placed for nutrition. Appreciate input from [employer]PERVISOR team. Working on coordinating post hospitalization care. Goldy Gonzalez MD [facility] Division of Hospital Medicine [facility] MD - 03/28/2020 11:25 AM EDT Internal Medicine Daily Progress Note Patient: Blaine Crowley, 1955, [id number] Physician: Goldy Gonzalez MD, 4 service Subjective/Interval History: Overnight Blaine removed his NG tube multiple times. Awake and follows commands this morning but unable to verbalize responses. Objective: Vitals: 03/28/20 0802 BP: 134/65 Pulse: 51 Resp: 16 Temp: 98.2 ?F (36.8 ?C) O2 Device: room air (03/27/20 5689) Flow (L/min): 2 (03/25/20 8797) General: more awake, non verbal today HEENT: NC/AT, PERRL. Interval removal of NG tube CV: RRR, no murmurs, rubs, S3 or S4. Pulm: Normal work of breathing. Lungs clear to auscultation bilaterally. No wheezes, rales or rhonchi. Abd: Soft Extremities: Warm and well perfused. No edema. Neuro: awake, minimally interactive. Squeezes hand, wiggles toes on command. Non verbal Skin: No areas of ecchymoses, erythema, rashes or wounds found There is no height or weight on file to calculate BMI. Data Review: Recent Labs 03/26/20 0442 03/26/20 1815 03/27/20 0012 03/28/20 0101 WBC 15.02* -- 9.57 11.93* HGB 15.4 -- 14.4 15.5 HCT 47.7 -- 44.4 47.3 PLATELET 229 -- 205 197 SODIUM 141 141 140 143 POTASSIUM 3.5 4.0 3.5 3.6 CHLORIDE 109* 107 108 108 CO2 19* 22 23 23 BUN 32* 30* 30* 26* CREATSERUM 0.89 0.99 0.95 0.99 MAGNESIUM 2.4 2.4 2.4 2.1 PHOSPHORUS 2.6 3.2 3.4 3.4 Lab Results Component Value Date LACT 2.2 (H) 03/25/2020 LACT 2.1 (H) 03/24/2020 LACT 2.9 (H) 03/23/2020 CT CHEST WITHOUT CONTRAST Final Result IMPRESSION: 1. Trace left pleural effusion with dependent atelectasis in the posterior left lung and generalized underaeration of the lung bases 2. No mass or lymphadenopathy. 3. Generalized calcified atherosclerotic disease of the coronary arteries. Dilated ascending thoracic aorta at 4.3 cm. ABDOMEN/PELVIS WITHOUT CONTRAST Final Result IMPRESSION: 1. No acute intra-abdominal findings to explain the patient's abdominal pain. 2. No bowel obstruction or bowel wall thickening. 3. Status post left nephrectomy. No abnormal density within the left nephrectomy bed. 4. Scattered colonic diverticulosis without evidence of acute diverticulitis. 5. Diffuse hepatic steatosis without focal hepatic lesion. ABDOMEN 1 VIEW PORTABLE Final Result IMPRESSION: NG tube in appropriate position. Stable mild dilation of the visualized colon which may represent an ileus or distal obstruction. ABDOMEN 1 VIEW PORTABLE Final Result IMPRESSION: Side port of the enteric tube is at the GE junction. Recommend advancement of 5 to 7 cm. CARDIOGRAM Final Result MRI BRAIN WITH AND WITHOUT CONTRAST Final Result IMPRESSION: Acute infarct in the right basal ganglia and internal capsule, without hemorrhage or mass effect. Extensive cystic encephalomalacia throughout the left frontal and parietal lobes with ex vacuo dilation of left lateral ventricle. Hemosiderin staining within the encephalomalacia is consistent with remote hemorrhagic change. There is also encephalomalacia in the right parietal lobe to a lesser extent. DUPLEX VENOUS EXTREMITY UPPER RIGHT Final Result US ABDOMEN RUQ/LIVER/GB Final Result IMPRESSION: Hepatic steatosis. No evidence of cirrhosis. No focal hepatic lesions. I personally viewed and interpreted these images and I have reviewed and approved this report. FLUORO LUMBAR PUNCTURE Final Result IMPRESSION: Successful fluoroscopic-guided lumbar puncture with 10 ml of clear colorless CSF removed. Opening pressure: 15 cm H2O. I personally viewed and interpreted these images and I have reviewed and approved this report. CHEST AP PORTABLE ED Final Result IMPRESSION: No acute cardiopulmonary disease. STROKE HEAD-STROKE ALERT ONLY Final Result IMPRESSION: No acute intracranial hemorrhage. Hypoattenuation along the anterior right basal ganglia is unchanged since the outside facility CT earlier same day, and could represent potentially an acute lacunar infarct, sequela of hypoxic-ischemic injury, or toxic metabolic process such as carbon monoxide toxicity. Remote infarcts of the left frontal, parietal, and temporal lobes as well as of the right parietal lobe and right basal ganglia with associated ex vacuo dilation of the left lateral ventricle. Findings were discussed with Ana Burns MD at 2119 on March 21, 2020. I personally viewed and interpreted these images and I have reviewed and approved this report. FLUORO MODIFIED BARIUM SWALLOW WITH SPEECH (Results Pending) Assessment/Plan: 64 y.o. male with a PMHx of CVA w/ residual right-sided weakness (2012) and Seizures who presents with altered mental status now found to have acute stroke. ? Altered Mental Status / Acute Encephalopathy likely 2/2 acute CVA in right basal ganglia/internal capsule and subsequent seizure activity and post ictal state Patient found unresponsive 03/21 AM. Other work up- APAP, ASA negative. CK 161. UDS only w/ diphenhydramine. Labs for encephalopathy unremarkable. EEG w/o seizure. Blood cultures NGTD, stop all abx - Neurology c/s who recommended stroke work up: TTE with EF 60%, negative bubble study. Neuro has since signed off - keppra increased to 1000 BID, plan for PO/NG 03/27 - s/p LP with IR, labs neg for infection - MRI Brain per Neurology, read as above - Dexamethasone 10mg q6hrs x 4days for possible brain swelling now discontinued - PT/OT/Speech evaluations - NG tube placed then removed. Plan to place bridled duotube today. IV bolus of D5LR in the interim.Will attempt to contact significant other regarding PEG placement this afternoon. - tube feeds, nutrition consult-->will touch base with speech about need for NG - remove mcclellan catheter - trial out of restraints during afternoon - Update: spoke with significant other Greer (tells me she is his official HCPOA though not legally ) who is amenable to proceeding with PEG placement. - GI consult placed for PEG tube ? Leukocytosis Unclear etiology. Likely related to steroids +/- stress. - Trend with CBC daily - UA non infectious ? Elevated Lactic Acid Unclear etiology. likely lack of clearance - RUQ unremarkable. - trend - CT chest and a/p negative for malignancy. Likely related to steatosis DVT prophylaxis with Lovenox Disposition: GM 4 for encephalopathy workup. Will need SNF on discharge Code status is FULL CODE Ramses Flanagan MD - 03/27/2020 10:31 AM EDT Internal Medicine Daily Progress Note Patient: Blaine Crowley, 1955, [id number] Physician: Ramses Flanagan MD, GM 4 service Subjective/Interval History: Restrained overnight, attempted to pull out ng this AM. Otherwise no complaints. Objective: Vitals: 03/27/20 0820 BP: 139/71 Pulse: 54 Resp: 22 Temp: 98.2 ?F (36.8 ?C) O2 Device: room air (03/27/20 0049) Flow (L/min): 2 (03/25/20 0437) General: more awake, non verbal today HEENT: NC/AT, PERRL. NG tube in place CV: RRR, no murmurs, rubs, S3 or S4. Pulm: Normal work of breathing. Lungs clear to auscultation bilaterally. No wheezes, rales or rhonchi. Abd: Soft Extremities: Warm and well perfused. No edema. Neuro: awake, minimally interactive. Squeezes hand, wiggles toes on command. Non verbal Skin: No areas of ecchymoses, erythema, rashes or wounds found There is no height or weight on file to calculate BMI. Data Review: Recent Labs 03/25/20 0444 03/26/20 0442 03/26/20 1815 03/27/20 0012 WBC 13.89* 15.02* -- 9.57 HGB 13.9 15.4 -- 14.4 HCT 42.5 47.7 -- 44.4 PLATELET 217 229 -- 205 SODIUM 138 141 141 140 POTASSIUM 4.1 3.5 4.0 3.5 CHLORIDE 106 109* 107 108 CO2 23 19* 22 23 BUN 30* 32* 30* 30* CREATSERUM 0.93 0.89 0.99 0.95 MAGNESIUM -- 2.4 2.4 2.4 PHOSPHORUS -- 2.6 3.2 3.4 Lab Results Component Value Date LACT 2.2 (H) 03/25/2020 LACT 2.1 (H) 03/24/2020 LACT 2.9 (H) 03/23/2020 CT CHEST WITHOUT CONTRAST Final Result IMPRESSION: 1. Trace left pleural effusion with dependent atelectasis in the posterior left lung and generalized underaeration of the lung bases 2. No mass or lymphadenopathy. 3. Generalized calcified atherosclerotic disease of the coronary arteries. Dilated ascending thoracic aorta at 4.3 cm. ABDOMEN/PELVIS WITHOUT CONTRAST Final Result IMPRESSION: 1. No acute intra-abdominal findings to explain the patient's abdominal pain. 2. No bowel obstruction or bowel wall thickening. 3. Status post left nephrectomy. No abnormal density within the left nephrectomy bed. 4. Scattered colonic diverticulosis without evidence of acute diverticulitis. 5. Diffuse hepatic steatosis without focal hepatic lesion. ABDOMEN 1 VIEW PORTABLE Final Result IMPRESSION: NG tube in appropriate position. Stable mild dilation of the visualized colon which may represent an ileus or distal obstruction. ABDOMEN 1 VIEW PORTABLE Final Result IMPRESSION: Side port of the enteric tube is at the GE junction. Recommend advancement of 5 to 7 cm. CARDIOGRAM Final Result MRI BRAIN WITH AND WITHOUT CONTRAST Final Result IMPRESSION: Acute infarct in the right basal ganglia and internal capsule, without hemorrhage or mass effect. Extensive cystic encephalomalacia throughout the left frontal and parietal lobes with ex vacuo dilation of left lateral ventricle. Hemosiderin staining within the encephalomalacia is consistent with remote hemorrhagic change. There is also encephalomalacia in the right parietal lobe to a lesser extent. DUPLEX VENOUS EXTREMITY UPPER RIGHT Final Result US ABDOMEN RUQ/LIVER/GB Final Result IMPRESSION: Hepatic steatosis. No evidence of cirrhosis. No focal hepatic lesions. I personally viewed and interpreted these images and I have reviewed and approved this report. FLUORO LUMBAR PUNCTURE Final Result IMPRESSION: Successful fluoroscopic-guided lumbar puncture with 10 ml of clear colorless CSF removed. Opening pressure: 15 cm H2O. I personally viewed and interpreted these images and I have reviewed and approved this report. CHEST AP PORTABLE ED Final Result IMPRESSION: No acute cardiopulmonary disease. STROKE HEAD-STROKE ALERT ONLY Final Result IMPRESSION: No acute intracranial hemorrhage. Hypoattenuation along the anterior right basal ganglia is unchanged since the outside facility CT earlier same day, and could represent potentially an acute lacunar infarct, sequela of hypoxic-ischemic injury, or toxic metabolic process such as carbon monoxide toxicity. Remote infarcts of the left frontal, parietal, and temporal lobes as well as of the right parietal lobe and right basal ganglia with associated ex vacuo dilation of the left lateral ventricle. Findings were discussed with Ana Burns MD at 2118 on March 21, 2020. I personally viewed and interpreted these images and I have reviewed and approved this report. FLUORO MODIFIED BARIUM SWALLOW WITH SPEECH (Results Pending) Assessment/Plan: 64 y.o. male with a PMHx of CVA w/ residual right-sided weakness (2012) and Seizures who presents with altered mental status now found to have acute stroke. ? Altered Mental Status / Acute Encephalopathy likely 2/2 acute CVA in right basal ganglia/internal capsule and subsequent seizure activity and post ictal state Patient found unresponsive 03/21 AM. Other work up- APAP, ASA negative. CK 161. UDS only w/ diphenhydramine. Labs for encephalopathy unremarkable. EEG w/o seizure. Blood cultures NGTD, stop all abx - Neurology c/s who recommended stroke work up: TTE with EF 60%, negative bubble study. Neuro has since signed off - keppra increased to 1000 BID, plan for PO/NG 03/27 - s/p LP with IR, labs neg for infection - MRI Brain per Neurology, read as above - Dexamethasone 10mg q6hrs x 4days for possible brain swelling now discontinued - PT/OT/Speech evaluations - NG tube placed - tube feeds, nutrition consult-->will touch base with speech about need for NG - remove mcclellan catheter - trial out of restraints during afternoon ? Leukocytosis Unclear etiology. Likely related to steroids +/- stress. - Trend with CBC daily - send UA with reflex to culture ? Elevated Lactic Acid Unclear etiology. likely lack of clearance - RUQ unremarkable. - trend - CT chest and a/p negative for malignancy. Likely related to steatosis DVT prophylaxis with Lovenox Disposition: GM 4 for encephalopathy workup. Will need SNF on discharge Code status is FULL CODE Associated attestation - Goldy Gonzalez MD - 03/27/2020 8:28 PM EDT Attending Attestation: I have personally seen and independently examined Blaine Crowley on March 27, 2020 and I agree withthe physical exam as stated above. I have personally reviewed all available clinical data related totcarolyn's encounter including, but not limited to, radiology images and reports, laboratory data, and procedure reports. I agree with the resident's findings and have been fully involved in formulation of the assessment and plan. Blaine mental status remains stable - intermittently responds yes/no questions. Working to optimizenutritional status. Will discuss his progress with [employer]PERVISOR but suspect he will require PEG tube if in accordance with GOC. Goldy Gonzalez MD [facility] Division of Hospital Medicine [facility] manuel MD - 03/27/2020 4:38 AM EDTNo UOP for over 12h since mcclellan removed 1500 03/26. Bladder scan with < 400ml, but will cath once just to confirm this volume Could just be that patient has not had much PO intake overnight Goldy rowell MD - 03/26/2020 2:11 PM EDT Internal Medicine Daily Progress Note Patient: Blaine Crowley, 1955, [id number] Physician: Goldy Gonzalez MD, GM 4 service Subjective/Interval History: Delirious overnight and removed NG tube. Needed restraints. This morning was less communicative but easily arousable. In afternoon able to follow commands intermittently. Updated over phone. Objective: Vitals: 03/26/20 1145 BP: 110/67 Pulse: 52 Resp: 16 Temp: 97.8 ?F (36.6 ?C) O2 Device: room air (03/26/20 0955) Flow (L/min): 2 (03/25/20 0437) General: more awake, less talkative today HEENT: NC/AT, PERRL. NG tube in place CV: RRR, no murmurs, rubs, S3 or S4. Pulm: Normal work of breathing. Lungs clear to auscultation bilaterally. No wheezes, rales or rhonchi. Abd: Soft Extremities: Warm and well perfused. No edema. Neuro: difficult to arouse though more awake, intermittently responds appropriately. can wiggle toeson L side, moves L arm freely. Skin: No areas of ecchymoses, erythema, rashes or wounds found There is no height or weight on file to calculate BMI. Data Review: Recent Labs 03/24/20 0432 03/25/204 03/26/20441 WBC 16.92* 13.89* 15.02* HGB 13.4 13.9 15.4 HCT 41.7 42.5 47.7 PLATELET 253 217 229 SODIUM 141 138 141 POTASSIUM 4.1 4.1 3.5 CHLORIDE 107 106 109* CO2 22 23 19* BUN 26* 30* 32* CREATSERUM 1.10 0.93 0.89 MAGNESIUM -- -- 2.4 PHOSPHORUS -- -- 2.6 Lab Results Component Value Date LACT 2.2 (H) 03/25/2020 LACT 2.1 (H) 03/24/2020 LACT 2.9 (H) 03/23/2020 XR ABDOMEN 1 VIEW PORTABLE Final Result IMPRESSION: NG tube in appropriate position. Stable mild dilation of the visualized colon which may represent an ileus or distal obstruction. ABDOMEN 1 VIEW PORTABLE Final Result IMPRESSION: Side port of the enteric tube is at the GE junction. Recommend advancement of 5 to 7 cm. CARDIOGRAM Final Result MRI BRAIN WITH AND WITHOUT CONTRAST Final Result IMPRESSION: Acute infarct in the right basal ganglia and internal capsule, without hemorrhage or mass effect. Extensive cystic encephalomalacia throughout the left frontal and parietal lobes with ex vacuo dilation of left lateral ventricle. Hemosiderin staining within the encephalomalacia is consistent with remote hemorrhagic change. There is also encephalomalacia in the right parietal lobe to a lesser extent. DUPLEX VENOUS EXTREMITY UPPER RIGHT Final Result US ABDOMEN RUQ/LIVER/GB Final Result IMPRESSION: Hepatic steatosis. No evidence of cirrhosis. No focal hepatic lesions. I personally viewed and interpreted these images and I have reviewed and approved this report. FLUORO LUMBAR PUNCTURE Final Result IMPRESSION: Successful fluoroscopic-guided lumbar puncture with 10 ml of clear colorless CSF removed. Opening pressure: 15 cm H2O. I personally viewed and interpreted these images and I have reviewed and approved this report. CHEST AP PORTABLE ED Final Result IMPRESSION: No acute cardiopulmonary disease. STROKE HEAD-STROKE ALERT ONLY Final Result IMPRESSION: No acute intracranial hemorrhage. Hypoattenuation along the anterior right basal ganglia is unchanged since the outside facility CT earlier same day, and could represent potentially an acute lacunar infarct, sequela of hypoxic-ischemic injury, or toxic metabolic process such as carbon monoxide toxicity. Remote infarcts of the left frontal, parietal, and temporal lobes as well as of the right parietal lobe and right basal ganglia with associated ex vacuo dilation of the left lateral ventricle. Findings were discussed with Ana Burns MD at 2119 on March 21, 2020. I personally viewed and interpreted these images and I have reviewed and approved this report. FLUORO MODIFIED BARIUM SWALLOW WITH SPEECH (Results Pending) CT CHEST WITHOUT CONTRAST (Results Pending) CT ABDOMEN/PELVIS WITHOUT CONTRAST (Results Pending) Assessment/Plan: 64 y.o. male with a PMHx of CVA w/ residual right-sided weakness (2012) and Seizures who presents with altered mental status now found to have acute stroke. ? Altered Mental Status / Acute Encephalopathy likely 2/2 acute CVA in right basal ganglia/internal capsule and subsequent seizure activity and post ictal state Patient found unresponsive 03/21 AM. Other work up- APAP, ASA negative. CK 161. UDS only w/ diphenhydramine. Labs for encephalopathy unremarkable. EEG w/o seizure. Blood cultures NGTD, stop all abx - Neurology c/s who recommended stroke work up: TTE with EF 60%, negative bubble study. Neuro has since signed off - keppra increased to 1000 BID - s/p LP with IR, labs neg for infection - MRI Brain per Neurology, read as above - Dexamethasone 10mg q6hrs x 4days for possible brain swelling now discontinued - PT/OT/Speech evaluations - NG tube placed - tube feeds, nutrition consult - remove mcclellan catheter - trial out of restraints during afternoon ? Leukocytosis Unclear etiology. Likely related to steroids +/- stress. - Trend with CBC daily - send UA with reflex to culture ? Elevated Lactic Acid Unclear etiology. DDx infectious etiology vs seizure vs lack of clearance vs other - RUQ unremarkable. - trend - CT chest and a/p ordered DVT prophylaxis with Lovenox Disposition: GM 4 for encephalopathy workup. Will need SNF on discharge Code status is FULL CODE Cindy Harris RN - 03/26/2020 1:17 PM EDTProgression of Care Note Expected Discharge Date: 03/29/2020 Medical Milestones Remaining: AMS, Dysphagia Assessment and Discharge Plan as of 03/26/2020 1:17 PM Patient discharging to SNF Plan was not discussed with Patient on this date. Information from the patient, family, caregiver orother authorized food service representative(s) was obtained telephonically. Anticipated discharge disposition: Longterm Facility Anticipated Services at Discharge: Physical Therapy, Longterm, Occupational Therapy Explanation of Barriers: SW assisting with SNF placement. Readmission Risk Score Risk of Readmission: 11 Category Reference: ? Low: 0% - 16% ? Medium ? Low: 17% - 32% ? Medium ? High: 33% - 48% ? High: 49% - 100% Supriya Brewster LSW - 03/26/2020 10:45 AM EDTPlacement Plan ? This assessment was completed?telephonically. ? Expected Discharge Date:?03/27/2020 ? Referred Level of Care:??SNF ? Barriers:?Medical Stability, Transportation ? Current Referrals and Status 1.??[facility]-Reviewing Clinical 2.??[facility]-Reviewing Clinical 3.??[facility]-Reviewing Clinical 4.??[facility] 5.??[facility]-Reviewing Clinical 6.??[facility]-Reviewing Clinical ? Updated clinical sent to SNF. Patient remains medically unstable for discharge at this time. NG tubeplaced last evening. SNF cannot accept with the NG tube. [facility] remain in [facility]. Social work will remain available to assist as needed. 3:17 PM CHEMISTRY SPECIALIST [facility] requested CHEMISTRY SPECIALIST make a referral to a new SNF, [facility]. CHEMISTRY SPECIALIST updated re-opened patients referral status and sent to facility. CHEMISTRY SPECIALIST will follow up. ? PRIYA Longoria, [facility] Medical Social Work [phone] Contact info for weekend CM and SW staff (8:00am - 4:30pm): [facility]: CCM: [phone] / Director Emergency Services: [phone] Mariscal: CCM: [phone] / Director Emergency Services: [phone] Hansel: CCM : [phone] / Director Emergency Services: [phone] Johnny/MICU/PCU Umberto: CCM: [phone] / Director Emergency Services: [phone] Ofelia Palacios, PT - 03/26/2020 10:01 AM EDT Physical Therapy Attempt Note Attempted physical therapy. Pt unable to complete PT secondary to patient currently working with speech therapy at this time. Will re-attempt when schedule permits and patient able. 03/26/20 1001 Clinical Impression PT Therapy Completed Attempted PT Therapies Still to Complete 2 Ofelia Celaya DPT License #: [id number] Pager #: [phone] Asya Bowen SLP - 03/26/2020 9:52 AM EDT Acute Care Speech Language Pathology Treatment Note Diet and Medication Administration Recommendation: Recommended Method of Nutrition: NPO, Short-term alternate nutrition Medications: non-oral Speech/Lang/Cog Therapy Frequency: 5 times a week Swallow Therapy Frequency: 5 times a week Discharge Recommendations: Blaine Crowley would benefit from continued RECYCLING CREW SUPERVISOR services with 24 hour supervision in order to promote improved oropharyngeal swallow function, improve swallow safety, and decrease risk for aspiration/malnutrition/dehydration. SUBJECTIVE: RN communication: RN approved session: yes, RN Gege Status statements: Patient is awake, alert. Difficulty noted with communication. Pain: No pain reported or pain behaviors noted. OBJECTIVE: (Treatment Activity Completed) Swallow: 1- Pt will swallow therapeutic trials of ice chips and water, after oral care, with RECYCLING CREW SUPERVISOR only, to provide pharyngeal challenge swallows. Goal addressed, ongoing. RECYCLING CREW SUPERVISOR addressed this goal this date in order to determine if pt is appropriate for MBS given notes from last night indicating potential change in status with concerns for potential new left facial droop. RECYCLING CREW SUPERVISOR presented ice chips x5 with patient initially 'biting' spoon for initial trial and demonstratingdifficulty with oral acceptance; however, following 4 trials the patient appeared to habituate to accepting ice chips. He demonstrates a delayed cough in 2/5 presentations of ice chips - indicative of potential aspiration/penetration. The patient appears to continue to remain appropriate to participate with instrumental swallow study. 2- Pt will swallow direct PO trials of various consistencies during instrumental swallow study to assess swallow physiology and further determine plan of care. Goal addressed, ongoing. The patient was appropriate for [facility]; however, scheduling difficulties in radiology/fluoro this date as well as patient is scheduled for abdominal CT this date and pt with significant residuals this date when RN checked NG tube. Will plan to complete Sunday. RECYCLING CREW SUPERVISOR Outcomes Tracking Communicate basic wants and needs?: no Demo insight/appreciation of deficits?: no Complete basic problem solving?: no ASSESSMENT: Diagnosis & Severity rating: Presume oropharyngeal dysphagia s/p right basal ganglia stroke Progress toward goals: Ongoing Prognosis: Good to achieve stated goals PLAN: Goal management Plan to proceed with [facility] Sunday Recommendations and referrals [facility] Sunday See top of note for further recommendations Time in: 951 Time out: 1021 I used facemask,protective eye shield, and gloves in today's patient interaction. I was assisted by Miracle Muñiz, RECYCLING CREW SUPERVISOR student during this visit. Speech-Language Pathologist: Asya Younger MS CCC-RECYCLING CREW SUPERVISOR #[id number], CBIS Pager# [phone] Can also be reached via [employer] secure chat Mon-Fri between [phone] Upon discontinuation of Acute Care Speech Therapy Services or patient discharge from the hospital this note represents the current Speech Therapy Discharge Summary Asya Younger SLP - 03/26/2020 9:52 AM EDT Acute Care Speech-Language Pathology Speech/Language/Cognitive Evaluation Speech/Lang/Cog Therapy Frequency: 5 times a week RECYCLING CREW SUPERVISOR Discharge Recommendations: Patient would benefit from RECYCLING CREW SUPERVISOR services with 24 hour supervision in order to promote functional means of communication Referrals: Speech Language Pathologist Communication Strategies: Patient inconsistently answers yes/no questions (very basic) correctly Date of Evaluation: 03/26/2020 Date of Admission: 03/21/2020 Attending Physician: Goldy Gonzalez MD General Patient Information Name: Blaine Crowley Gender: male Date of : 1955 Primary Diagnosis: ICD-10-CM 1. Cerebrovascular accident (CVA), unspecified mechanism I63.9 Past Medical History: Diagnosis Date ? CVA (cerebral vascular accident) 2012 No past surgical history on file. Pain: General Pain Documentation (Adult, OB, Peds) Presence of Pain: denies pain/discomfort Patient History Comments: Pt is a 64 y.o. male who presents with past medical history of CVA with residual right sided weakness and seizures presents with altered mental status. The patient presented to the hospital with right sided facial droop and expressive aphasia. Prior Level of Function: Per review of EMR and Asya Guerrero (RECYCLING CREW SUPERVISOR)'s discussion with pt's significant other, Greer, the patient's communication history is as follows: Pt worked with speech therapy ~2 years following stroke for speech/language deficits, and was discharged after they said this was as good as he was gonna get. Per s/o, at baseline pt speaks in short phrases, requires extended time for verbal communication. Per RN discussion with pt's son, he states pt has difficult time with verbal expression, will often times change subject or attempt to utilize gestures/pointing to assist with communication. Respiratory Status: Room Air Evaluation: EXPRESSIVE LANGUAGE: Impaired Task: Accuracy: Comments: Imitates Gestures 0% Automatic Speech 0% Phrase Completion 0% Confrontation Naming 0% Answering 'wh' Questions 0% Repetition 0% Verbalize Basic Wants and Needs 0% Functional Participation in Conversation 0% Expressive Language Characteristics: No verbal output RECEPTIVE LANGUAGE: Impaired Task: Accuracy: Comments: Identify Functional Objects 0% From a field of 2 by name. Presented in both the right and left spheres Follow 1-Step Commands 50% With left UE and left LE. Pt also able to follow command to raise/scruncheyebrows but did not follow any oral motor commands (smile, stick out his tongue, etc) Answers Basic Y/N Questions 30% Very basic yes/no questions related to self/name READING: Not Tested Due To severity of impairments and patient with reduced attention span WRITING: Not Tested Due To pt currently in soft mitt restraints SOCIAL INTERACTION/PRAGMATICS: Not Tested Due To aphasia COGNITION: Not Tested Due To aphasia CRANIAL NERVE EXAMINATION: Cranial Nerve Exam Function: Comments CN V (Trigeminal) Motor: Intact Sensory: Not tested 2/2 do not feel that pt would be able to rate CN VII (Facial) Motor: Not tested Sensory: Not tested Pt does not follow commands for assessment CN IX (glossopharyngeal) Motor: Not tested Sensory: Not tested Pt does not follow commands for assessment CN X (Vagus) Motor: Not tested Sensory: Not tested Pt does not follow commands for assessment CN XI (Accessory) Motor: Not tested Pt does not follow commands for assessment CN XII (Hypoglossal) Motor: Not tested Pt does not follow commands for assessment MOTOR SPEECH TASKS: Impaired Task: Rating: Comments: Imitate Motor Movements Unable to assess secondary to universal masking precautions (COVID-19) Imitate Sounds and Words impaired Pt makes no attempts to vocalize VOCAL PARAMETERS: Not Tested Due To pt makes no attempts to vocalize throughout evaluation RECYCLING CREW SUPERVISOR Outcomes: RECYCLING CREW SUPERVISOR Outcomes Tracking Communicate basic wants and needs?: no Demo insight/appreciation of deficits?: no Complete basic problem solving?: no Clinical Impression: Blaine Crowley presents with severe aphasia most consistent with global aphasia, characterized by deficits in the areas of automatics, confrontation naming, command following, repetition, answering yes/no questions, and functional object ID from a field of 2 s/p right basal ganglia stroke, likely negatively impacted by history of previous left sided hemorrhagic CVA in 2013 with residual impairments(inclusive of communication impairments). These deficits result in functional limitations in abilityto communicate basic wants/needs. Goals: 1. The patient will identify common objects from a field of 2 by name given max assist from RECYCLING CREW SUPERVISOR in order to promote functional communication ability across 3-4 sessions. 2. The patient will answer yes/no to basic questions related to self and current environment with 60% accuracy given max assist from RECYCLING CREW SUPERVISOR in order to promote functional communication source across 3-4 sessions. 3. The patient will imitate vowel sounds and bilabials given max assist from RECYCLING CREW SUPERVISOR in order to promoteincreased verbalizations across 3-4 sessions. 4. The patient will follow 1-step commands with 80% accuracy when given max A from RECYCLING CREW SUPERVISOR in order to promote improved ability to participate with therapy across all disciplines. Time In: 951 Time Out: 1021 I used facemask,protective eye shield, and gloves in today's patient interaction. I was assisted by Miracle Muñiz, RECYCLING CREW SUPERVISOR student during this visit. Speech Language Pathologist: Asya Younger MS [facility]-RECYCLING CREW SUPERVISOR #[id number], CBIS Pager# [phone] Can also be reached via [employer] secure chat Mon-Fri between [phone] Upon discontinuation of Acute Care Speech Therapy Services or patient discharge from the hospital this note represents the current Speech Therapy Discharge Summary Elinor Guardado RD - 03/26/2020 8:06 AM EDT NUTRITION ASSESSMENT: CONSULT Nutrition Recommendations and Plan of Care: 1. When medically appropriate and NG tube placement confirmed, recommend initiating TF of Osmolite 1.2 @ 10 ml/hr advancing slowly (q 8 hrs) as tolerated to a goal rate of 70 ml/hr. -Goal rate provides 1680 ml total volume, 2016 kcal (27 kcal/kg IBW), 93 g protein (1.2 g/kg IBW), 1378 ml free water 2. Free water flushes per primary team. Suggest a minimum of 30 mL x 4 daily to maintain tube patency. 3. Recommend 100 mg thiamine x 5-7 days and a MVI as pt is at risk for refeeding. -Monitor for signs/symptoms 4. Recommend checking Mg, PO4, K+ at a minimum of daily and replacing as appropriate. 5. Diet advancement per RECYCLING CREW SUPERVISOR recommendations. 6. Bowel regimen per primary team. 7. Monitor TF tolerance, skin, labs, weight status, stool output. 8. RD to continue to follow. Per HPI: 64 y.o. male with a PMHx of CVA w/ residual right-sided weakness (2012) and Seizures who presents with altered mental status. Past History Past medical, surgical, family, and social histories have reviewed and are located elsewhere in the medical record. Nutrition History Received consult for TF assessment. Pt was assessed via chart review only given efforts to minimize contact, maintain appropriate social distancing, and reduce exposure risk. Pt unable to provide nutrition history at this time 2/2 clinical status; confirmed with nursing staff. Did not attempt to call pt on phone due to this matter. Pt has been NPO during entire LOS thus far (4 days). Pt evaluated by RECYCLING CREW SUPERVISOR on 03/25 and recommended NPO status and referral for MBS. NG tube placed yesterday (03/25). Repeat abdominal x ray read pending. Noted allergy to iodine. Per care everywhere, pt with rash after CT dye. No swelling or SOB. Last bm 03/25. Diet Order: Current Diet Orders Procedures ? DIET NPO WITHOUT meds Patient to remain NPO until bedside evaluation. Standing Status: Standing Number of Occurrences: 1 Order Specific Question: NPO Meds: Answer: WITHOUT meds Ht: 5'10 (11/06/16 per care everywhere) Wt: 92 kg IBW:75.5 kg %IBW: 122 BMI: 29 Weight History: Wt Readings from Last 8 Encounters: 03/25/20 92 kg (202 lb 13.2 oz) Meds reviewed: Meds: ? aspirin 81 mg Per NG tube Daily ? atorvastatin 80 mg Per NG tube QHS ? enoxaparin 40 mg Subcutaneous QAM ? levETIRAcetam (KEPPRA) IVPB 1,000 mg Intravenous Q12H ? polyethylene glycol 17 g Per NG tube Daily Continuous: ? Pivot 1.5 Ernst Labs reviewed: Na/K+/Phos/Mg/Ca: 141/3.5/--/--/-- (03/26 442) Bun/Creat/Cl/CO2/Glucose: 32/0.89/109/19/86 (03/26 442) WBC/Hgb/Hct/Plts: 15.02/15.4/47.7/229 (03/26 442) No results found for: PREALBUMIN No results found for: CRP Lab Results Component Value Date TRIG 166 (H) 03/25/2020 Lab Results Component Value Date ALT 33 03/21/2020 AST 39 03/21/2020 ALKPHOS 44 03/21/2020 BILITOTAL 0.6 03/21/2020 BILIDIRECT 0.1 03/21/2020 GI: non distended abdomen. +NGT. Last bm 03/25 Skin: bruises; Dayana Score: 11 Edema- - Estimated Nutrition Needs: Weight Used: 75.5 kg IBW EEN: 0047-5465 (25-30 kcal/kg IBW) EPN: 91-113 (1.2-1.5 g/kg IBW) EFN: 1 mL/kcal Malnutrition Diagnosis: Indications of Malnutrition: Unable to assess at this time. Pt was assessed via chart review only given efforts to minimize contact, maintain appropriate social distancing, and reduce exposure risk. Ptunable to provide nutrition history at this time 2/2 clinical status; confirmed with nursing staff. Did not attempt to call pt on phone due to this matter. Noted pt has been NPO during entire LOS thus far (4 days). based on the AND/ASPEN Malnutrition Criteria [address], LD Pager: [phone] Casey Chavarria MD - 03/25/2020 7:36 PM EDT Brief Cross Cover Note Called to the bedside for possible facial asymmetry. Subjective Blaine was lying in bed, pulling at his NG tube with his left hand, asking me to Take it off, as in his wrist restraint. He mentioned he wanted to have bowel movement. Objective Vitals: 03/25/20 0437 03/25/20 0812 03/25/20 1145 03/25/20 1529 BP: 113/67 116/67 135/72 135/83 Pulse: 52 52 52 55 Resp: 16 16 16 16 Temp: 98 degrees F (36.7 degrees C) 97.3 degrees F (36.3 degrees C) 97.7 degrees F (36.5 degrees C) 97.6 degrees F (36.4 degrees C) TempSrc: Oral Oral Oral Oral SpO2: 94% 92% 94% 94% Weight: 92 kg (202 lb 13.2 oz) Pupils equal round and reactive to light Difficulty assessing CN3,4, 6 given intermittent ability to follow some commands but appear grossly stable. CN7 with ability to close eyes and give smile without facial droop CN8 deferred CN9-10 deferred CN11 intact Cn12 intact RUE flaccid RLE ability to bend knee and lift off bed LUE pulling at NG LLE ability to lift off bed Abdomen: soft, nontender, nondistended Assessment Blaine's exam is re-assuring. I think his head was turned to the side and gave the appearance of a facial droop. On my exam, he is able to adequately provide a symmetric smile in the upper and lower portions of the face. CN5 appears intact. My suspicion for a hemorrhagic conversion is low given controlled blood pressures or new ischemic insult. He has markedly improved since I admitted him (went from essentially nonresponsive to intermittently interactive). I've reviewed his abdominal film. It appears he has some component of stool burden. His abdomen is soft and non-distended. I don't think he has an ileus as he was actively stool in the room. Plan - No further imaging necessary. - Continue jonathan mitt/soft limb restraint. - Take off NGT from low suction. Provide miralax for bowel regimen. - Consult placed to RD for tube assessment as Blaine has demonstrated overt signs/symptoms concerning for penetration/aspiration with all textures/consistencies trialed. Casey Baca MD PGY2, Internal Medicine Pager [phone] Asya Floyd SLP - 03/25/2020 1:28 PM EDT Acute Care Speech-Language Pathology Clinical Swallow Evaluation Swallow Therapy Frequency: 5 times a week Discharge Recommendations: Will recommend closer to discharge Other Recommendations: Oral care 3x/day as this has been proven to reduce the risk of pneumonia, especially in NPO patients Referrals: Modified Barium Swallow Study Diet recommendation: Recommended Method of Nutrition: NPO Please consider limited ice chips following oral care, given strict 1:1 RN supervision to assist in secretions clearance and reduce risk of disuse atrophy. Medications: non-oral Type of Cues/Supervision: 1:1 supervision(ice chips) Assistance: nurse/aide Date of Admission: 03/21/2020 Date of Evaluation: 03/25/2020 Attending Physician: Goldy Gonzalez MD General Patient Information Name: Blaine Crowley Gender: male Date of : 1955 Primary Diagnosis: ICD-10-CM 1. Cerebrovascular accident (CVA), unspecified mechanism I63.9 Past Medical History: Diagnosis Date ? CVA (cerebral vascular accident) 2012 No past surgical history on file. Pain: No verbal/nonverbal indicators of pain present Patient History Comments: Pt is a 64 y.o. male who presented with AMS, concern for seizures. MRI revealed new ischemic stroke in R basal ganglia. PMH significant for left hemorrhagic frontal/parietal/temporal stroke (2012) with residual R hemiparesis and seizures on Keppra at home. Prior RECYCLING CREW SUPERVISOR history: This RECYCLING CREW SUPERVISOR unable to find history of RECYCLING CREW SUPERVISOR tx, pt unable to provide history this date. RECYCLING CREW SUPERVISOR contacted pt's significant other, Greer, who stated pt worked with speech therapy ~2 years following stroke for speech/language deficits, and was discharged after they said this was as good as hewas gonna get. Per s/o, at baseline pt speaks in short phrases, requires extended time for verbal communication. Per RN discussion with pt's son, he states pt has difficult time with verbal expression, will often times change subject or attempt to utilize gestures/pointing to assist with communication. Current Method of Nutrition: NPO Respiratory Status: Room Air Subjective: Pt laying in bed on RECYCLING CREW SUPERVISOR arrival, awake/alert and agreeable to evaluation. Pt still with inconsistent/minimal ability to follow directions (?true deficits vs decreased motivation to participate) and requires model/tactile hand over hand cue to complete tasks. Pt self-fed all trials, demonstrated impulsivity with large consecutive sips and large bites. Pt without any verbal output this datedespite max cues/encouragement. Exam limited by cognition: Yes Objective Evaluation: Oral Motor: Unable to complete 2/2 pt following directions, noted mild reduced labial retraction on R with smile/feeding during PO trials. Voice: No verbalizations within evaluation, pt consistently nodding/shaking head Positioning: Upright in bed Anticipatory Phase: Impaired, pt self fed trials, impulsive with bite size/pacing Foods and Liquids Trialed: Modality: Amount: Thin Liquids (IDDSI 0) Straw X4 Pureed (IDDSI 4) Tsp x5 *Further trials deferred 2/2 concern for pharyngeal dysphagia. Oral Phase Function Comments Oral Mucosa Intact Dentition own teeth Labial Closure Intact Mastication NA Oral Stasis absent Cough before the swallow present W/ thin liquids via straw Oral Phase Summary: Given limited trials, oral phase characterized by no anterior loss, adequate oral clearance with puree solids, however x2 coughing prior to suspected swallow initiation with thin liquids via straw. Given impulsivity demonstrated RECYCLING CREW SUPERVISOR utilized straw pinch and provide assist limiting b ite size of puree solids on spoon. Pharyngeal Phase Function Comments Perceived Swallow present Cough Response Yes Thin liquids, puree Throat Clear Yes Puree Subjective Complaint of Residue Patient Unable to Rate Pharyngeal Phase Summary: Given limited trials, pt demonstrates overt signs/symptoms concerning for penetration/aspiration with all textures/consistencies trialed. [place] Swallow Screen: (administered by: RN prior to swallow eval) [place] Swallow Screening Screening Exclusion Criteria: (bedside swallow screening failed: kept pausing to swallow ) Cognitive Screen: Orientation: able to give name Cognitive Screen: Command Following: able to open mouth, able to stick out tongue, able to smile Oral Motor Function : able to close lips 3 oz. Water Swallow Challenge : deferred per clinical judgement Chel Swallow Screening Result: failed=NPO Voice and Swallow Outcomes: Functional Oral Intake Scale: Level 1 - No oral intake Speech/Cognition Outcomes: RECYCLING CREW SUPERVISOR Outcomes Tracking Communicate basic wants and needs?: no Demo insight/appreciation of deficits?: unable to determine Complete basic problem solving?: unable to determine Clinical Impression: Blaine Crowley presents with suspected oropharyngeal phase deficits s/p acute CVA, R basal ganglia. Pt presents with impulsivity, inability to consistently follow 1 step directions this date. Pt withovert signs/symptoms concerning for penetration/aspiration following all textures/consistencies trialed. Risk of aspiration reduced with NPO status, recommend instrumental swallow study to objectively assess oropharyngeal phases of swallow and further determine plan of care. RECYCLING CREW SUPERVISOR to follow. Goals: 1- Pt will swallow therapeutic trials of ice chips and water, after oral care, with RECYCLING CREW SUPERVISOR only, to provide pharyngeal challenge swallows. 2- Pt will swallow direct PO trials of various consistencies during instrumental swallow study to assess swallow physiology and further determine plan of care. Time In: 1328 Time Out: 1338 I used facemask,protective eye shield, and gloves in today's patient interaction. I was assisted by no one during this visit. Speech-Language Pathologist: Asya Guerrero -RECYCLING CREW SUPERVISOR Pager: [phone] License: [id number] Email: [email or web address] Upon discontinuation of Acute Care Speech Therapy Services or patient discharge from the hospital this note represents the current Speech Therapy Discharge Summary amses Flanagan MD - 03/25/2020 12:05 PM EDT Internal Medicine Daily Progress Note Patient: Blaine Crowley, 1955, [id number] Physician: Ramses Flanagan MD, PGY2, Pager #[phone], GM 4 service Subjective/Interval History: Did well overnight, less conversational this AM. No pain. Objective: Vitals: 03/25/20 1145 BP: 135/72 Pulse: 52 Resp: 16 Temp: 97.7 ?F (36.5 ?C) O2 Device: room air (03/25/20 0755) Flow (L/min): 2 (03/25/20 0437) General: more awake, less talkative today HEENT: NC/AT, PERRL. CV: RRR, no murmurs, rubs, S3 or S4. Pulm: Normal work of breathing. Lungs clear to auscultation bilaterally. No wheezes, rales or rhonchi. Abd: Soft Extremities: can wiggle toes on L side, moves L arm freely. Neuro: difficult to arouse though more awake, intermittently responds appropriately Skin: No areas of ecchymoses, erythema, rashes or wounds found There is no height or weight on file to calculate BMI. Data Review: Recent Labs 03/23/20 0040 03/24/20 0432 03/25/20 0444 WBC 20.78* 16.92* 13.89* HGB 13.2* 13.4 13.9 HCT 40.2 41.7 42.5 PLATELET 247 253 217 SODIUM 139 141 138 POTASSIUM 4.4 4.1 4.1 CHLORIDE 108 107 106 CO2 21* 22 23 BUN 20 26* 30* CREATSERUM 1.08 1.10 0.93 Lab Results Component Value Date LACT 2.2 (H) 03/25/2020 LACT 2.1 (H) 03/24/2020 LACT 2.9 (H) 03/23/2020 VASC DUPLEX VENOUS EXTREMITY UPPER RIGHT Final Result US ABDOMEN RUQ/LIVER/GB Final Result IMPRESSION: Hepatic steatosis. No evidence of cirrhosis. No focal hepatic lesions. I personally viewed and interpreted these images and I have reviewed and approved this report. FLUORO LUMBAR PUNCTURE Final Result IMPRESSION: Successful fluoroscopic-guided lumbar puncture with 10 ml of clear colorless CSF removed. Opening pressure: 15 cm H2O. I personally viewed and interpreted these images and I have reviewed and approved this report. CHEST AP PORTABLE ED Final Result IMPRESSION: No acute cardiopulmonary disease. STROKE HEAD-STROKE ALERT ONLY Final Result IMPRESSION: No acute intracranial hemorrhage. Hypoattenuation along the anterior right basal ganglia is unchanged since the outside facility CT earlier same day, and could represent potentially an acute lacunar infarct, sequela of hypoxic-ischemic injury, or toxic metabolic process such as carbon monoxide toxicity. Remote infarcts of the left frontal, parietal, and temporal lobes as well as of the right parietal lobe and right basal ganglia with associated ex vacuo dilation of the left lateral ventricle. Findings were discussed with Ana Burns MD at 9 on March 21, 2020. I personally viewed and interpreted these images and I have reviewed and approved this report. BRAIN WITH AND WITHOUT CONTRAST (Results Pending) ECHOCARDIOGRAM (Results Pending) Assessment/Plan: In summary, Blaine Crowley is a 64 y.o. male with a PMHx of CVA w/ residual right-sided weakness (2012) and Seizures who presents with altered mental status. ? Altered Mental Status / Acute Encephalopathy Patient found unresponsive 6/14 AM. DDx including stroke, seizure/post-ictal (including NCSE), meningitis. Concern for stroke given CT head w/ hypoattenuation along anterior right basal ganglia potentially representing an acute lacunar infarct, sequela of HIE, or toxic metabolic process (e.g. CO toxicity). Concern for seizure given seizure hx. Concern for Meningitis given elevated WBC & lactate and no other focal infectious signs. APAP, ASA negative. CK 161. UDS only w/ diphenhydramine. Labs forencephalopathy unremarkable. EEG w/o seizure. Blood cultures NGTD, stop all abx - Neurology c/s - S/p 1g of Keppra; Keppra 500mg BID - s/p LP with IR, labs neg for infection - MRI Brain per Neurology, read as above. Discuss further recs with neurology - Dexamethasone 10mg q6hrs x 4days for possible brain swelling, continue pending neurology recs - PT/OT/Speech evaluations when patient is more alert ? Leukocytosis Unclear etiology. Likely related to steroids +/- stress. Will keep Abx as above as caution however - Trend with CBC daily ? Elevated Lactic Acid Unclear etiology. DDx infectious etiology vs seizure vs lack of clearance vs other - RUQ unremarkable. - trend DVT prophylaxis with Lovenox Disposition: GM 4 for encephalopathy workup Code status is FULL CODE Staffed with Dr. Gonzalez Signed, Ramses Flanagan MD PGY 2 Pager: [phone] Associated attestation - Goldy Gonzalez MD - 03/25/2020 8:57 PM EDT Attending Attestation: I have personally seen and independently examined Blaine Crowley on March 25, 2020 and I agree withthe physical exam as stated above. I have personally reviewed all available clinical data related totcarolyn's encounter including, but not limited to, radiology images and reports, laboratory data, and procedure reports. I agree with the resident's findings and have been fully involved in formulation of the assessment and plan. Blaine had his brain MRI which showed an acute infarct in his right basal ganglia. Presentation seems most consistent with acute stroke then leading to lower seizure threshold and post ictal state. Neurology guiding stroke work up. We are obtaining imaging to work up his persistently elevated lactategiven his prior history of cancer. Failed [employer]ING [employer]W SUPERVISOR evaluation so will get NG tube place and plan to starttube feeds. Goldy Gonzalez MD [facility] of Internal Medicine Division of Hospital [facility] SystemSupriya Wilson LSW - 03/25/2020 10:45 AM EDTPlacement Plan ? This assessment was completed?telephonically. ? Expected Discharge Date:?03/27/2020 ? Referred Level of Care:??SNF ? Barriers:?Medical Stability, Transportation ? Current Referrals and Status 1.??[facility]-Reviewing Clinical 2.??[facility]-Reviewing Clinical 3.??[facility]-Reviewing Clinical 4.??[facility] 5.??[facility]-Reviewing Clinical 6.??[facility]-Reviewing Clinical ? Updated clinical sent to SNF. Patient remains medically unstable for discharge at this time. Social work will remain available to assist as needed. ? PRIYA Longoria, PROJECT RESERVOIR ENGINEER Medical Social Work [phone] signed by JANEL Longoria at 03/25/2020 10:47 AM Ofelia Palacios, PT - 03/25/2020 9:23 AM EDT Acute Care Physical Therapy Treatment Note Frequency: 5 x a week Recommendations: Blaine Crowley would benefit at this time from continued PT services with 24 hoursupervision needed for mobility needs. Pt unable to provide any prior level of function, however per RN reports patient was modified independent with use of quad cane at baseline. 03/25/20 0923 Subjective RN Approved Intervention as tolerated Existing Precautions/Restrictions fall Subjective Reports Pt nods head yes to being agreeable to participate in therapy, however questionable effort throughout Cognitive Status Examination Orientation Status (Cognition) oriented to;person Level of Consciousness alert;confused Able to Follow Commands (Communication) moderate impairment;success, 1-step commands Personal Safety and Judgment impaired;at risk behaviors demonstrated General Pain Documentation (Adult, OB, Peds) Presence of Pain denies pain/discomfort Bed Mobility Skill: Supine to Sit, Rehab Eval Level of Yolo: Supine/Sit maximum assist (25% patients effort) Physical Assist/Nonphysical Assist: Supine/Sit 2 person assist;verbal cues Transfer Skill: Sit To Stand, Rehab Eval Yolo (Sit-Stand Transfers) maximum assist (25% patient effort) Physical Assist/Nonphysical Assist: Sit/Stand 2 person assist;verbal cues Weight-Bearing Restrictions: Sit/Stand full weight-bearing Assistive Device For Transfer: Sit/Stand (arm and arm assist) CURRENT [facility] Basic Mobility Inpatient Short Form Turning over in bed 1 - Total Assistance Sitting/standing from chair 1 - Total Assistance Moving from lying on back to sitting 1 - Total Assistance Moving to and from bed to chair 1 - Total Assistance Walk in hospital room 1 - Total Assistance Climbing 3-5 steps with a railing 1 - Total Assistance CURRENT [facility] Mobility Raw Score 6 CURRENT [facility] Mobility Functional Limitation/Modifier 100.00% Currently Impaired in Basic Mobility Currently Impaired in Basic Mobility - CN Projected [facility] Mobility Raw Score 10 Projected [facility] Mobility Functional Limitation/Modifier 76.75% Projected Functional Impairment in Basic Mobility Clinical Impression PT Therapy Completed Yes PT Therapies Still to Complete 3 Continue care plan yes Today's Treatment Included PETE gale patient participation in therapy session. Pt was lying in bed andagreeable to participate. Pt educated in bed mobility transferring supine to sit with max assist of 2. Pt completed edge of bed sitting to increase core strength and endurance requiring max assist secondary to retro and left side leaning. Pt educated in bilateral LE therapeutic exercises in sitting inall planes x 10 repetitions with increased verbal and tactile cues requiring active assistive range of motion on right LE to achieve full range. Pt easily distracted requiring verbal cues to remain focused on therapy task. Pt educated in sit to stand with max assist of 2 and arm and arm assist, pt maintained standing x 30-40 seconds with max assist of 2, arm and arm assist and left side leaning. Pt completed stand to sit, attempted second stand, however unable to achieve of clear buttock from sitting surface despite max assist of 2. Pt completed stand to sit and sit to supine with max assist of 2. Pt repositioned in bed with 2 person assist. Pt in bed with all needs met, call light in reach. RN aware. Assessment VTE Prevention/Management (positioning, range of motion) Progress toward goals Pt making slow progress toward therapy goals, pt with decreased vocalization this date and participation in therapy Plan Plan for next visit Continue to progress mobility as patient tolerates Maintain frequency yes Upon discontinuation of Acute Care Physical Therapy Services or patient discharge from the hospital this note represents the current Physical Therapy Discharge Summary. Time in: 9:23 Time out: 9:46 I used gloves, facemask and protective eye shield in today's patient interaction. I was assisted by PIPER Keller during this visit. Ofelia Celaya, DPT License #: [id number] Pager #: [phone] Jane Morgan OTA - 03/25/2020 9:22 AM EDT Occupational Therapy Acute Care Treatment Note Frequency;5x a week Recommendations per supervising therapist:Blaine Crowley would benefit from continued OT services with 24 hour supervision needed for self care and safety needs. 03/25/20 0922 Subjective RN Approved Intervention as tolerated Existing Precautions/Restrictions fall Subjective Reports Pt agreeable to tx Cognitive Status Examination Orientation Status (Cognition) oriented to;person Level of Consciousness alert;confused Able to Follow Commands (Communication) moderate impairment Personal Safety and Judgment impaired General Pain Documentation (Adult, OB, Peds) Presence of Pain denies pain/discomfort Bed Mobility Skill: Supine to Sit, Rehab Eval Level of Yolo: Supine/Sit maximum assist (25% patients effort) Physical Assist/Nonphysical Assist: Supine/Sit 2 person assist Transfer Skill: Sit To Stand, Rehab Eval [place] (Sit-Stand Transfers) maximum assist (25% patient effort) Physical Assist/Nonphysical Assist: Sit/Stand 2 person assist Weight-Bearing Restrictions: Sit/Stand full weight-bearing Assistive Device For Transfer: Sit/Stand (arm in arm assist) Grooming Yolo Level (Grooming) moderate assist (50% patient effort) CURRENT AM-PAC Daily Activity Inpatient Short Form Putting on/Taking Off Lower Body Clothing 1 - Total Assistance Bathing 1 - Total Assistance Toileting 1 - Total Assistance Putting on/Taking Off Upper Body Clothing 2 - A Lot of Assistance Grooming 2 - A Lot of Assistance Eating 2 - A Lot of Assistance CURRENT AM-PAC Activity Raw Score 9 CURRENT AM-PAC Activity Functional Limitation/Modifier 79.59% Currently Impaired in Daily Activity -CL Assessment VTE Prevention/Management On - SCD Clinical Impression Patient Instruction Role of OT, Plan of care Rehab Potential (OT Eval) good, to achieve stated therapy goals OT Therapy Completed Yes Today's Treatment Included Pt supine in bed upon arrival with pt agreeable to tx session. Pt instructed on transfer to edge of bed with max A x2 with cues and extra time for initiation and hand placement on bed rail. Pt required mod to max A for seated balance with lateral leaning requiring cues to utilize left hand support on bed to maintain position. Pt instructed on face wash and grooming requiring encouragement and demonstration to initiate with Min A for thoroughness. Pt instructed on brushing teeth, but not able to initiate or state why he did not want to complete task. Transfer training fromsit to stand with Max arm in arm assist x2 with pt tolerating x30 seconds before requiring seated rest break. Returned to standing with same assist with pt unable to clear buttocks. Returned to supine with dep A x2 due to fatigue. Completed left shoulder, elbow, and wrist active range of motion exercises requiring visual demonstration to initiate and complete. Pt supine in bed with all needs met at end of tx session. Continue care plan yes Plan Plan Narrative Continue OT per plan of care Therapist Information License # [id number] Pager # [phone] Time:9:22-9:46 I used gloves, facemask, and goggles in today's patient interaction. DRAKE Fontanez/Slava License # [id number] Pager# [phone] I, as the supervising practitioner have read, edited, and agreed with the documentation stated above. EPIFANIO William/L License #: [id number] Pager#: [phone] Upon discontinuation of Acute Care Occupational Therapy Services or patient discharge from the hospital this note represents the current Occupational Therapy Discharge Summary. Asya Floyd SLP - 03/25/2020 8:08 AM [facility] Speech Language Pathology Attempt Note Time In: 0808 Time Out: 819 Attempted to see pt for swallow evaluation, pt laying in bed awake, not following directions and without verbal output in response to RECY[employer]ING [employer]W SUPERVISOR questions. Pt pointing to water, then to applesauce/pudding to indicate preference for eating, however with each presentation of food/drink pt refusing to take spoon with L hand, refusing RECYCLING CREW SUPERVISOR attempts to assist with feeding. When asked if he would like RECYCLING CREW SUPERVISOR to return at later time, pt nodded head. Will re-attempt as able/appropriate. Given ?receptive/expressive language deficits (in setting on known prior CVA- per RN note and discussion with pt's s/o he could talk in broken sentences, and tolerated a regular diet at home. Currentpresentation questionable change in status when MRI results pending) discussed speech/lang/cog evaluation with 4 service. No charge. KIMBERLY Nascimento-RECYCLING CREW SUPERVISOR Pager: [phone] License: [id number] Email: [email or web address] Mayela Herman DT - 03/24/2020 1:58 PM EDT NUTRITION RISK SCREENING NOTE Blaine Crowley is a 64 y.o. male admitted with Altered Mental Status, h/o CVA w/residual right-sided weakness and seizures. Past History Past medical, surgical, family, and social histories have been reviewed and are located elsewhere inthe medical record. Height: 5'10 (from Care Everywhere) Weight: 92 kg (202 lb 12.8 oz) IBW: 75.4 kg/160 lb %IBW: 126% BMI: 29 Wt Readings from Last 10 Encounters: 03/21/20 92 kg (202 lb 12.8 oz) Current Diet Orders Procedures ? DIET NPO with meds Patient to remain NPO until bedside evaluation. Standing Status: Standing Number of Occurrences: 1 Order Specific Question: NPO Meds: Answer: with meds Food Allergies reviewed:none Cultural or Yazidi Restrictions/Preferences: none 03/24/20 1357 Rn Progressive Care Unit - Nutrition Assessment Appetite good Patient c/o (denied n/v/d) Chewing / Swallowing Problems Difficulty swallowing Weight Changes unaware of changes Skin Integrity / Dayana Score Reviewed yes (Dayana score: 12) STAND bundle Pt is at nutrition risk due to current admission, age, low dayana score which places pt at risk for skin breakdown. Due to COVID19 and efforts to reduce exposure risk and preserve PPE, I have reviewed this patients chart and have made the following recommendations without physically seeing this patient today. Per chart review, pt may not be able to answer questions appropriately and is a poor historian. Pt remains NPO, has reported previously to have issues with swallowing, may benefit from MBS from speech. Pt at appropriate weight for height, no n/v indicated. Will continue to follow for plan for diet advancement. If more aggressive intervention is desired, please consult RD for recommendations. Nutrition Plan of Care: 1. Monitor for diet advancement. 2. Monitor for significant weight changes. 3. Monitor and encourage po intake (when po resumes) with goal of average po being 50%. 4. Rn Progressive Care Unit will continue to follow. LENARD Lane Pager:[phone] Cindy Harris RN - 03/24/2020 1:35 PM EDTProgression of Care Note Expected Discharge Date: 03/25/2020 Medical Milestones Remaining: AMS. Neuro, PT/OT following. Assessment and Discharge Plan as of 03/24/2020 1:36 PM Patient will discharge to SNF. Plan was discussed with HCPOA/Sig Other on this date. Information from the patient, family, caregiver or other authorized food service representative(s) was obtained telephonically. Anticipated discharge disposition: Longterm Facility Anticipated Services at Discharge: Physical Therapy, Occupational Therapy, Longterm Explanation of Barriers: CCM and SW will assist with discharge needs. Readmission Risk Score Risk of Readmission: 9 Category Reference: ? Low: 0% - 16% ? Medium ? Low: 17% - 32% ? Medium ? High: 33% - 48% ? High: 49% - 100% Ofelia Palacios PT - 03/24/2020 1:31 PM EDT Acute Care Physical Therapy Evaluation Frequency: 5 x a week Recommendations: Blaine Crowley would benefit at this time from continued PT services with 24 hoursupervision needed for mobility needs. 03/24/20 1055 General Information RN Approved Intervention as tolerated Diagnosis AMS Surgical Procedure PERIOPERATIVE SURGICAL HISTORY AND PHYSICAL UPDATE Pre-op Diagnoses: * No surgery found * Surgeon(s): * Surgery not found * Past Medical History Past Medical History: Diagnosis Date ? CVA (cerebral vascular accident) 2012 Past Surgical History No past surgical history on file. Existing Precautions/Restrictions fall Home Setting Residence Home (pt is a poor historian, however reports living at home, per chart patient lives at home with significant other in 1 level home) Lives With significant other General Pain Documentation (Adult, OB, Peds) Presence of Pain denies pain/discomfort Cognitive Status Examination Orientation Status (Cognition) oriented to;person (reports hospital for place with cues/options) Level of Consciousness alert;confused Able to Follow Commands (Communication) moderate impairment;success, 1-step commands;severe impairment (follows 25-50% of single step commands) Personal Safety and Judgment impaired;at risk behaviors demonstrated Speech speech impaired (possible receptive/expressive aphasia) Range of Motion (ROM) Range of Motion Examination bilateral lower extremity ROM was WFL (active assistive ) Manual Muscle Testing (MMT) Manual Muscle Testing Results (Pt unable to follow commands for formal testing, however left LE appears to be at least 3/5 grossly. Pt with no active movement of right LE initially when attempting to complete MMT assessment, however once returned to supine patient with active movement of right LE in all planes- spontaneous and on command) Skin Integrity Skin integrity WFL (visible areas) Edema Edema present (right forearm- RN notified) Bed Mobility Skill: Supine to Sit, Rehab Eval Level of Yolo: Supine/Sit maximum assist (25% patients effort) Physical Assist/Nonphysical Assist: Supine/Sit 2 person assist;verbal cues;set- up required Transfer Skill: Sit To Stand, Rehab Eval Y[place] (Sit-Stand Transfers) maximum assist (25% patient effort) Physical Assist/Nonphysical Assist: Sit/Stand 2 person assist;verbal cues;set-up required Weight-Bearing Restrictions: Sit/Stand full weight-bearing Assistive Device For Transfer: Sit/Stand (arm and arm assist) Sensory Examination Sensory Examination (pt unable to state) General Interventions Planned Therapy Interventions balance training;bed mobility training;endurance;gait training;strengthening;transfer training;neuromuscular re-education PRIOR LEVEL [facility] Basic Mobility Inpatient Short Form Turning over in bed (Pt with AMS and unable to provide any prior level of function) CURRENT [facility] Basic Mobility Inpatient Short Form Turning over in bed 1 - Total Assistance Sitting/standing from chair 1 - Total Assistance Moving from lying on back to sitting 1 - Total Assistance Moving to and from bed to chair 1 - Total Assistance Walk in hospital room 1 - Total Assistance Climbing 3-5 steps with a railing 1 - Total Assistance CURRENT AM-PAC Mobility Raw Score 6 CURRENT AM-PAC Mobility Functional Limitation/Modifier 100.00% Currently Impaired in Basic Mobility Currently Impaired in Basic Mobility - CN Projected AM-PAC Mobility Raw Score 10 Projected AM-PAC Mobility Functional Limitation/Modifier 76.75% Projected Functional Impairment in Basic Mobility Assessment VTE Prevention/Management (positioning) Assessment Narrative Patient's physical therapy evaluation is moderately complex. History: Patient exhibits 1-2 personal factors and/or comorbidities that impact the plan of care Blaine silvestre 64 y.o. was admitted on 03/21/2020 for AMS, pt with past medical history of CVA with right side weakness. Pt is a poor historian and unable to provide any prior level of function/living situation. Per chart patient was living home with in 1 level home, WW for mobility. Examination: included body system(s) using standardized tests and measures addressing 3 or more elements from any of the following: body structures and functions, activity limitations, and/or participation restrictions Pt presents with decreased strength, endurance, balance, right side weakness, decreased command following and independence with all mobility. Presentation: Evolving clinical presentation with changing clinical characteristics Pt requires max of 2 assistance for functional mobility. Pt will benefit from skilled therapy in order to progress safety and independence with mobility. Clinical Decision making: Moderate level- Using standardized assessment This co-evaluation session performed between OT and PT was beneficial, necessary and provided distinct services in establishing this person's individual plan of care. Clinical Impression Criteria for Skilled Therapeutic Interventions Met (PT Eval) yes;treatment indicated Impairments Found (PT Eval) aerobic capacity/endurance;gait, locomotion, and balance;muscle performance;ROM (range of motion) Rehab Potential (PT Eval) good, to achieve stated therapy goals Therapy Frequency 5 times a week PT Therapy Completed Yes PT Therapies Still to Complete 4 Anticipated Equipment Needs at Discharge (PT Eval) (will recommend closer to discharge) Initial Evaluation/Screen Completed? yes Continue care plan yes Today's Treatment Included PT evaluation completed. Pt completed bed mobility, edge of bed sitting with min to mod assist secondary to retro leaning, transfer with assist as described in PT evaluation.Pt in bed with all needs met, call light in reach. RN aware. . Goals Goals For Discharge Maximize patients independence with functional mobility Risk / Benefits - additional information yes Discussed risk / benefits with patient Goals Goal 1 Patient will complete sit to supine and supine to sit with mod level of assist to progress toprior level of function by discharge. Goal 2 Pt will complete sit to stand and stand to sit transfer with min of 2 assist with no AD to progress to prior level of function by discharge Goal 3 Patient will participate in 20 minutes of static/dynamic sitting balance activity with stand by level of assist in order to increase core strength and balance by discharge Goal 4 Patient will independently complete bilateral UE/LE therapeutic exercise program 2 sets x 15 reps in order to increase strength for improved mobility by discharge. Therapist Recommendations At Discharge Recommendations PT Services recommended at Discharge Plan Plan Narrative PT to follow and progress patient toward PT goals as able per PT plan of care Upon discontinuation of Acute Care Physical Therapy Services or patient discharge from the hospital this note represents the current Physical Therapy Discharge Summary. Time in: 10:55 Time out: 11:15 I used gloves, facemask and protective eye shield in today's patient interaction. I was assisted by no one during this visit. Ofelia Celaya, DPT License #: [id number] Pager #: [phone] Denise Cabello OT - 03/24/2020 11:15 AM EDT Acute Occupational Therapy Evaluation Discharge Recommendations: Blaine Crowley would benefit from continued OT services with 24 hour supervision needed for self care and safety needs. Therapy frequency: 5 x's per week 03/24/20 1115 General Information RN Approved Intervention as tolerated Admitting Diagnosis AMS Surgical Procedure PERIOPERATIVE SURGICAL HISTORY AND PHYSICAL UPDATE Pre-op Diagnoses: * No surgery found * Surgeon(s): * Surgery not found * Past Surgical History No past surgical history on file. Past Medical History Past Medical History: Diagnosis Date ? CVA (cerebral vascular accident) 2013 Existing Precautions/Restrictions fall Previous Level of Function Bed Mobility/Transfers needs device (walker per chart review; pt reports wheelchair) Bathing independent (indepndent ADL's per chart review; pt unable to report) Upper Body Dressing independent Lower Body Dressing independent Grooming independent Toileting independent Eating independent General Pain Documentation (Adult, OB, Peds) Presence of Pain non-verbal indicator of pain/discomfort not present Home Setting Residence Home (pt unable to report set up; per chart review 1 level) Lives With significant other (per chart review) Equipment Available wheeled walker Cognitive Status Examination Orientation Status (Cognition) oriented to;person (hospital with two options) Level of Consciousness alert;confused Able to Follow Commands (Communication) moderate impairment;success, 1-step commands (25 % command following; improved with visual demo) Personal Safety and Judgment impaired Short Term Memory impaired Denture Contour Wire Specialist Memory impaired Cognitive Function Sequence impaired Memory impaired Organization impaired Problem Solving impaired Attention impaired Vision (check all that apply) Vision (decreased left visual scanning; right head tilt) Speech Speech word-finding difficulties;slurred speech (expressive and receptive aphasia) Hearing Hearing no gross deficits noted Sensory Examination Sensory Examination (unable to assess; pain noted RUE) Proprioception Proprioception shows deficit (RUE, RLE) Range of Motion (ROM) Range of Motion Examination LUE ROM was WFL (RUE passive ROM impaired elbow (full extension, 30 degrees elbow flexion) Manual Muscle Testing (MMT) Hand Electronic Bench Technician, Right absent Hand Electronic Bench Technician, Left weak Manual Muscle Testing Results (RUE strength 0/5; LUE strength 4/5) Muscle Tone Assessment LUE Muscle Tone Assessment WNL RUE Muscle Tone Assessment flaccid;moderately increased tone (flaccid except significant tone right elbow) Skin Integrity Skin integrity other (see comments) Skin Integrity Description Swelling;Redness (warm RUE; RN notified) Edema Edema present Location slight RUE Mobility Additional Documentation Yes Bed Mobility Skill: Rolling/Turning, PT Eval Level of [place] - Bed Mobility Skill Rolling Turning PT Eval maximum assist (25% patients effort) Physical Assist/Nonphysical Assist set-up required;supervision;verbal cues;2 person assist Bed Mobility Skill: Scooting/Bridging, Rehab Eval Level of [place]: Scoot/Bridge maximum assist (25% patients effort) Physical Assist/Nonphysical Assist: Scoot/Bridge set-up required;supervision;verbal cues;2 person assist Bed Mobility Skill: Sit to Supine, Rehab Eval Level of [place]: Sit/Supine maximum assist (25% patients effort) Physical Assist/Nonphysical Assist: Sit/Supine set-up required;supervision;verbal cues;2 person assist Bed Mobility Skill: Supine to Sit, Rehab Eval Level of [place]: Supine/Sit maximum assist (25% patients effort) Physical Assist/Nonphysical Assist: Supine/Sit set-up required;supervision;verbal cues;2 person assist Transfer Skill: Sit to Stand, Rehab Eval Level of [place]: Sit/Stand maximum assist (25% patients effort) Physical Assist/Nonphysical Assist: Sit/Stand set-up required;supervision;verbal cues;2 person assist Weight-Bearing Restrictions: Sit/Stand full weight-bearing Assistive Device for Transfer: Sit/Stand (partial stand) Gross Coordination Gross Coordination RUE impaired;LUE intact Fine Motor Coordination Additional Documentation Yes Fine Motor Coordination, OT Eval Left Hand Thumb/Finger Opposition Skills normal performance Left Hand, Manipulation of Objects normal performance Right Hand, Manipulation of Objects unable to perform Right Hand Thumb/Finger Opposition Skills unable to perform BADL Evaluation Additional Documentation Yes Bathing Level of [place] maximum assist (25% patients effort) Physical Assist/Nonphysical Assist set-up required;supervision;verbal cues;2 person assist Assistive Devices (Bathing) shower chair Upper Body Dressing Level of [place] maximum assist (25% patients effort) Physical Assist/Nonphysical Assist set-up required;supervision;verbal cues;1 person assist Lower Body Dressing Level of [place] maximum assist (25% patients effort) Physical Assist/Nonphysical Assist set-up required;supervision;verbal cues;2 person assist Toileting Level of [place] maximum assist (25% patients effort) Physical Assist/Nonphysical Assist set-up required;supervision;verbal cues;2 person assist Grooming [place] Level (Grooming) moderate assist (50% patient effort) Physical Assist/Nonphysical Assist set-up required;supervision;verbal cues;1 person assist General Therapy Interventions Planned Therapy Interventions (OT Eval) ADL retraining;IADL retraining;balance training;transfer training;ROM (range of motion) Acute AMPA Acute [facility] Assessments Daily Activity Inpatient Short Form PRIOR LEVEL AM-[facility] Activity Inpatient Short Form Putting on/Taking Off Lower Body Clothing 4 - No Assistance Bathing 4 - No Assistance Toileting 4 - No Assistance Putting on/Taking Off Upper Body Clothing 4 - No Assistance Grooming 4 - No Assistance Eating 4 - No Assistance PRIOR LEVEL AM-PAC Activity Raw Score 24 PRIOR LEVEL AM-PAC Activity Functional Limitation/Modifier 0.00% Prior Functional Impairment in Daily [facility] Short Form Putting on/Taking Off Lower Body Clothing 1 - Total Assistance Bathing 1 - Total Assistance Toileting 1 - Total Assistance Putting on/Taking Off Upper Body Clothing 2 - A Lot of Assistance Grooming 2 - A Lot of Assistance Eating 2 - A Lot of Assistance CURRENT AM-PAC Activity Raw Score 9 CURRENT AM-PAC Activity Functional Limitation/Modifier 79.59% Currently Impaired in Daily Activity -CL PROJECTED AM-PAC Activity Raw Score 16 PROJECTED AM-PAC Activity Functional Limitation/Modifier 53.32% - CK Assessment Assessment Narrative Profile and History: (Expanded; pt may present with comorbidities that may affect occupational performance) Pt is a 64 y/o male presenting with AMS, right sided weakness; hx of CVA affecting right side; unclear history and baseline. Per chart review pt using walker, living with and independent ADL's; ptable to provided limited history. Assessment of Occupational Performance: (3-5 performance deficits) Pt presents at this time with deficits in the following categories. Physical: endurance, balance, strength, ROM, coordination, sensation Cognitive: problem solving, attention, memory, command following, aphasia Psychosocial: level of A Clinical Decision Making: Standardized assessments: [facility], clinical judgement This co-treatment session performed between OT and PT was beneficial, necessary and provided distinct services in progressing this person?s individual plan of care. Clinical Impression Patient Instruction Role of OT, OT plan of care, up with assist, importance of OOB activity, safe functional transfers, energy conservation, adaptive dressing strategies, UE ROM exercises, pursed lip breathing strategies Equipment Issued none Rehab Potential (OT Eval) good, to achieve stated therapy goals Therapy Frequency 5 times a week OT Therapy Completed Yes OT Therapies Still to Complete 4 Anticipated Equipment Needs at Discharge (OT Eval) (will recommend) Initial Evaluation/Screen Completed? yes Today's Treatment Included OT functional evaluation; Limited due to weakness, balance deficits and poor command following Continue care plan yes Goals Goals For Discharge To return to previous level of function from self care aspect. Discussed risk / benefits with patient Unable to discuss risks / benefits with patient's family Goals Goal 1 Pt will complete UE dressing with mod A and adaptive strategies Goal 2 Pt will complete LE dressing task with max a x1 Goal 3 Pt will complete upper body bathing with good command following and mod A Goal 4 Pt will demonstrate safe functional toilet transfer to [facility] with max A x2 Goal 5 Pt will tolerate light grooming activity seated EOB x10 minutes with improved attention and command following with min A Goal 6 Pt will tolerate RUE passive or self ROM exercises for increased functional use RUE 3x per day Therapist Recommendations At Discharge Recommendations OT Services recommended at Discharge Plan Plan Narrative OT to continue to follow and progress with plan of care. Next session to focus on increasing independence with basic self care and command following Time in: 1055; Time out: 1115 Upon discontinuation of Acute Care Occupational Therapy Services or patient discharge from the hospital this note represents the current Occupational Therapy Discharge Summary. I used gloves, facemask and protective eye shield in today's patient interaction. Denise Oates, OTR/L License #: [id number] Pager #: [phone] amses Flanagan MD - 03/24/2020 11:00 AM EDT Internal Medicine Daily Progress Note Patient: Blaine Crowley, 1955, [id number] Physician: Ramses Flanagan MD, PGY2, Pager #[phone], GM 4 service Subjective/Interval History: Did well overnight, more awake this am. Verbally responsive and appropriate. No complaints of pain. Objective: Vitals: 03/24/20 0833 BP: 118/63 Pulse: 58 Resp: 16 Temp: 97.7 ?F (36.5 ?C) O2 Device: nasal cannula (03/24/20 0746) Flow (L/min): 2 (03/24/20 0746) General: more awake, verbally responsive and appropriate HEENT: NC/AT, PERRL. CV: RRR, no murmurs, rubs, S3 or S4. Pulm: Normal work of breathing. Lungs clear to auscultation bilaterally. No wheezes, rales or rhonchi. Abd: Soft Extremities: can wiggle toes on L side, moves L arm freely. Neuro: difficult to arouse though more awake, intermittently responds appropriately Skin: No areas of ecchymoses, erythema, rashes or wounds found There is no height or weight on file to calculate BMI. Data Review: Recent Labs 03/21/20 2120 03/22/20 0348 03/23/20 0040 03/24/20 0432 WBC 17.04* 17.58* 20.78* 16.92* HGB 15.2 14.1 13.2* 13.4 HCT 46.2 43.6 40.2 41.7 PLATELET 247 246 247 253 SODIUM 134 137 139 141 POTASSIUM 5.1* 4.4 4.4 4.1 CHLORIDE 102 105 108 107 CO2 21* 21* 21* 22 BUN 15 17 20 26* CREATSERUM 1.11 1.11 1.08 1.10 CALCIUM 9.1 -- -- -- MAGNESIUM 1.8 -- -- -- ALBUMIN 4.4 -- -- -- BILITOTAL 0.6 -- -- -- BILIDIRECT 0.1 -- -- -- AST 39 -- -- -- ALT 33 -- -- -- ALKPHOS 44 -- -- -- PT 13.5 -- -- -- INR 1.0 -- -- -- PTT 27.0 -- -- -- Lab Results Component Value Date LACT 2.1 (H) 03/24/2020 LACT 2.9 (H) 03/23/2020 LACT 3.2 (H) 03/22/2020 US ABDOMEN RUQ/LIVER/GB Final Result IMPRESSION: Hepatic steatosis. No evidence of cirrhosis. No focal hepatic lesions. I personally viewed and interpreted these images and I have reviewed and approved this report. FLUORO LUMBAR PUNCTURE Final Result IMPRESSION: Successful fluoroscopic-guided lumbar puncture with 10 ml of clear colorless CSF removed. Opening pressure: 15 cm H2O. I personally viewed and interpreted these images and I have reviewed and approved this report. CHEST AP PORTABLE ED Final Result IMPRESSION: No acute cardiopulmonary disease. STROKE HEAD-STROKE ALERT ONLY Final Result IMPRESSION: No acute intracranial hemorrhage. Hypoattenuation along the anterior right basal ganglia is unchanged since the outside facility CT earlier same day, and could represent potentially an acute lacunar infarct, sequela of hypoxic-ischemic injury, or toxic metabolic process such as carbon monoxide toxicity. Remote infarcts of the left frontal, parietal, and temporal lobes as well as of the right parietal lobe and right basal ganglia with associated ex vacuo dilation of the left lateral ventricle. Findings were discussed with Ana Burns MD at 9 on March 21, 2020. I personally viewed and interpreted these images and I have reviewed and approved this report. BRAIN WITH AND WITHOUT CONTRAST (Results Pending) Assessment/Plan: In summary, Blaine Crowley is a 64 y.o. male with a PMHx of CVA w/ residual right-sided weakness (2012) and Seizures who presents with altered mental status. ? Altered Mental Status / Acute Encephalopathy Patient found unresponsive 03/21 AM. DDx including stroke, seizure/post-ictal (including NCSE), meningitis. Concern for stroke given CT head w/ hypoattenuation along anterior right basal ganglia potentially representing an acute lacunar infarct, sequela of HIE, or toxic metabolic process (e.g. CO toxicity). Concern for seizure given seizure hx. Concern for Meningitis given elevated WBC & lactate and no other focal infectious signs. APAP, ASA negative. CK 161. UDS only w/ diphenhydramine. Labs forencephalopathy unremarkable. EEG w/o seizure. - Neurology c/s - S/p 1g of Keppra; Keppra 500mg BID - s/p LP with IR, labs neg for infection - MRI Brain per Neurology, pending - Blood cultures NGTD, stop all abx - Dexamethasone 10mg q6hrs x 4days for possible brain swelling, continue pending neurology recs - PT/OT/Speech evaluations when patient is more alert ? Leukocytosis Unclear etiology. Likely related to steroids +/- stress. Will keep Abx as above as caution however - Trend with CBC daily ? Elevated Lactic Acid Unclear etiology. DDx infectious etiology vs seizure vs lack of clearance vs other - RUQ unremarkable. - trend DVT prophylaxis with Lovenox Disposition: GM 4 for encephalopathy workup Code status is FULL CODE Staffed with Dr. Gonzalez Signed, Ramses Flanagan MD PGY 2 Pager: [phone] Associated attestation - Goldy Gonzalez MD - 03/24/2020 8:23 PM EDT Attending Attestation: I have personally seen and independently examined Blaine Crowley on March 24, 2020 and I agree withthe physical exam as stated above. I have personally reviewed all available clinical data related totcarolyn's encounter including, but not limited to, radiology images and reports, laboratory data, and procedure reports. I agree with the resident's findings and have been fully involved in formulation of the assessment and plan. Blaine continues to show slow mild improvement in his cognition and was able to follow commands andverbally interact with the team today. He is still awaiting his MRI brain. Stopping antibiotics today given negative infectious work up. Goldy Gonzalez MD [facility] Division of Hospital Medicine [facility] Hospital[facility]ri[facility] LSW - 03/24/2020 9:22 AM EDTPlacement Plan ? This assessment was completed telephonically. ? Expected Discharge Date: 03/25/2020 ? Referred Level of Care: SNF ? Barriers: Medical Stability, Transportation ? Current Referrals and Status 1. [facility]-Reviewing Clinical 2. [facility]-Reviewing Clinical 3. [facility]-Reviewing Clinical 4. [facility]-Reserved 5. [facility]-Reviewing Clinical 6. [facility]-Reviewing Clinical ? CHEMISTRY SPECIALIST contacted patient's HCPOA and updated her that team is recommending SNF (Longterm Facility) at discharge. CHEMISTRY SPECIALIST reviewed options with HCPOA and she prefers patient admit to the [facility]. CHEMISTRY SPECIALIST reserved SNF. Social work will remain available to assist as needed. 11:51 AM HENs completed ? PRIYA Longoria, [facility] Medical Social Work [phone] ? Rick Wilkins MD - 03/23/2020 5:57 PM EDTLong-Term Daily EEG Report: REFERRING PHYSICIAN: Goldy Gonzalez MD DATE AND TIME START OF RECORDIN03/22/2020, 1147 DATE AND TIME END OF RECORDIN03/23/2020, 0953, HISTORY: 64 year old male with a hx of CVA with residual RT sided weakness who presents with AMS concerning for subclinical seizures. MEDICATIONS: Acyclovir (ZOVIRAX) IVPB, 10 mg/kg (Order-Specific), Q8HNS Ampicillin IVPB, 2 g, Q4HNS cefTRIAXone (ROCEPHIN) IVPB, 2 g, Q12HNS dexamethasone, 10 mg, Q6H levETIRAcetam (KEPPRA) IVPB, 500 mg, BID lidocaine, 5 mL, Once Vancomycin (VANCOCIN) IVPB, 20 mg/kg (Order-Specific), Q12HNS TECHNICAL DESCRIPTION: A 21-channel continuous digital video EEG recording using the International 10-20 system. EEG technologists reviewed the recording and marked suspected abnormalities and selectedsegments including food service representative samples of states and provocative testing. The marked and selectedsegments as well as a substantial amount of sleep recording were reviewed by the EEG attending. Computerized spike and event detection was used and these detections were reviewed in detail. All event button presses were reviewed including those reported by patients, family and staff. DESCRIPTION: The patient is noted by the mammography technologist to follow some commands and is unable to move her rightside. Background: During maximal arousal the background consisted of a 15-30 uV, 10 Hz posterior rhythm that was best developed over the right hemisphere. Over the left hemisphere there was a subtle increase in theta frequencies compared to the right hemisphere. With drowsiness there was increased slowing into the delta range over the left hemisphere. Sleeping background: none apparent Focal Asymmetry: left hemisphere slowing Variability: yes Reactivity: yes Rhythmic or Periodic Patterns: none Potentially epileptogenic abnormalities: none Electrographic or electroclinical seizures: none Other Clinical Events: none IMPRESSION: Abnormal video-EEG recording demonstrating slowing over the left hemisphere. No seizureswere captured CLINICAL CORRELATION: This study suggests the presence of a functional or an anatomical lesion in the left hemisphere and would correlate well with the known history and examination. However, there wasnothing in the recording to suggest a seizure disorder. Rick Hodgson MD EEG Attending UIEClotilde hughes [facility] - 03/23/2020 1:31 PM EDT Department of Pharmacy Pharmacokinetics Progress Note Patient: Blaine Crowley Room/Bed: [facility] Assessment and Plan: Based upon drug level assessment and interpretation (steady state), no changes to vancomycin dose ordosing interval are indicated at this time. A pharmacist will continue to follow and order drug levels and adjust dosing as clinically appropriate. Vancomycin regimen at time of level: Vancomycin 1750 mg IV every 12 hours Last Dose Administered: Dose: Date: Time: 1750mg 03/23 0123 Levels: 18 mcg/mL drawn at 1240 on 03/23 Level was a trough. Most Recent Labs: WBC Count Date Value Ref Range Status 03/23/2020 20.78 (H) 3.73 - 10.10 K/uL Final BUN Date Value Ref Range Status 03/23/2020 20 7 - 22 mg/dL Final Creatinine Date Value Ref Range Status 03/23/2020 1.08 0.70 - 1.30 mg/dL Final I/O last 3 completed shifts: In: 3697.8 [P.O.:30; I.V.:1161.1; IV Piggyback:2506.7] Out: 3150 [Urine:3150] CrCl cannot be calculated (Unknown ideal weight.). Ongoing Vancomycin Monitoring: The following trough goal is recommended for ongoing therapy (and if the patient is discharged) based on the suspected/confirmed source of infection and today?s calculations: Goal trough range: 15-20 mcg/mL For further recommendations at discharge, please contact the rounding pharmacist or central pharmacy. Please feel free to contact me with any further questions. Name: Clotilde Vickers [facility] Phone: [phone] Date/Time: 03/23/2020 1:31 PM Ramses Morillo MD - 03/23/2020 12:10 PM EDT Internal Medicine Daily Progress Note Patient: Blaine Crowley, 1955, [id number] Physician: Ramses Flanagan MD, PGY2, Pager #[phone], GM 4 service Subjective/Interval History: Did well overnight, no seizure activity seen, more awake today. Objective: Vitals: 03/23/20 1149 BP: 114/69 Pulse: 75 Resp: 16 Temp: 98.7 ?F (37.1 ?C) O2 Device: room air (03/23/20 0814) General: more awake, intermittently responsive HEENT: NC/AT, PERRL. CV: RRR, no murmurs, rubs, S3 or S4. Pulm: Normal work of breathing. Lungs clear to auscultation bilaterally. No wheezes, rales or rhonchi. Abd: Soft Extremities: can wiggle toes on L side, moves L arm freely. Neuro: difficult to arouse though more awake, intermittently responds appropriately Skin: No areas of ecchymoses, erythema, rashes or wounds found There is no height or weight on file to calculate BMI. Data Review: Recent Labs 03/21/20 2120 03/22/20 0348 03/23/20 0040 WBC 17.04* 17.58* 20.78* HGB 15.2 14.1 13.2* HCT 46.2 43.6 40.2 PLATELET 247 246 247 SODIUM 134 137 139 POTASSIUM 5.1* 4.4 4.4 CHLORIDE 102 105 108 CO2 21* 21* 21* BUN 15 17 20 CREATSERUM 1.11 1.11 1.08 CALCIUM 9.1 -- -- MAGNESIUM 1.8 -- -- ALBUMIN 4.4 -- -- BILITOTAL 0.6 -- -- BILIDIRECT 0.1 -- -- AST 39 -- -- ALT 33 -- -- ALKPHOS 44 -- -- PT 13.5 -- -- INR 1.0 -- -- PTT 27.0 -- -- Lab Results Component Value Date LACT 2.9 (H) 03/23/2020 LACT 3.2 (H) 03/22/2020 LACT 3.02 (H) 03/22/2020 XR FLUORO LUMBAR PUNCTURE Final Result IMPRESSION: Successful fluoroscopic-guided lumbar puncture with 10 ml of clear colorless CSF removed. Opening pressure: 15 cm H2O. I personally viewed and interpreted these images and I have reviewed and approved this report. CHEST AP PORTABLE ED Final Result IMPRESSION: No acute cardiopulmonary disease. STROKE HEAD-STROKE ALERT ONLY Final Result IMPRESSION: No acute intracranial hemorrhage. Hypoattenuation along the anterior right basal ganglia is unchanged since the outside facility CT earlier same day, and could represent potentially an acute lacunar infarct, sequela of hypoxic-ischemic injury, or toxic metabolic process such as carbon monoxide toxicity. Remote infarcts of the left frontal, parietal, and temporal lobes as well as of the right parietal lobe and right basal ganglia with associated ex vacuo dilation of the left lateral ventricle. Findings were discussed with Ana Burns MD at 2119 on March 21, 2020. I personally viewed and interpreted these images and I have reviewed and approved this report. BRAIN WITH AND WITHOUT CONTRAST (Results Pending) Assessment/Plan: In summary, Blaine Crowley is a 64 y.o. male with a PMHx of CVA w/ residual right-sided weakness (2012) and Seizures who presents with altered mental status. ? Altered Mental Status / Acute Encephalopathy Patient found unresponsive 03/21 AM. DDx including stroke, seizure/post-ictal (including NCSE), meningitis. Concern for stroke given CT head w/ hypoattenuation along anterior right basal ganglia potentially representing an acute lacunar infarct, sequela of HIE, or toxic metabolic process (e.g. CO toxicity). Concern for seizure given seizure hx. Concern for Meningitis given elevated WBC & lactate and no other focal infectious signs. APAP, ASA negative. CK 161. UDS only w/ diphenhydramine. Labs forencephalopathy unremarkable. - Neurology c/s - S/p 1g of Keppra; Keppra 500mg BID - s/p LP with IR, labs neg for infection - MRI Brain per Neurology, stop EEG given no seizure activity - Blood cultures NGTD - de-escalate to non [employer] dosing vanc/rocephin. Stop ampicillin and acyclovir. Plan to stop all antimicrobials if Cx remain negative at 48hrs - Dexamethasone 10mg q6hrs x 4days for possible brain swelling - PT/OT/Speech evaluations when patient is more alert ? Leukocytosis Unclear etiology. Likely related to steroids +/- stress. Will keep Abx as above as caution however - Trend with CBC daily ? Elevated Lactic Acid Unclear etiology. DDx infectious etiology vs seizure vs lack of clearance - RUQ - trend DVT prophylaxis with Lovenox post LP Disposition: 4 for encephalopathy workup Code status is FULL CODE Staffed with Dr. Gonzalez Signed, Ramses Flanagan MD PGY 2 Pager: [phone] Associated attestation - Goldy Gonzalez MD - 03/23/2020 2:43 PM EDT Attending Attestation: I have personally seen and independently examined Blaine Crowley on March 23, 2020 and I agree withthe physical exam as stated above. I have personally reviewed all available clinical data related totodabrice's encounter including, but not limited to, radiology images and reports, laboratory data, and procedure reports. I agree with the resident's findings and have been fully involved in formulation of the assessment and plan. Blaine was a bit more interactive for me this morning. Was able to follow commands with left hand and wiggle toes on left. Answered no for me and could intermittently nod or shake head no to questions. CEEG without overt seizure but concerning for new insult in basal ganglia. Appreciate neurology assistance. Narrowing antibiotic coverage and obtaining MRI to better characterize Goldy Gonzalez MD [facility] Medicine Division of Hospital [facility] LSW - 03/23/2020 9:40 AM EDTPlacement Plan This assessment was completed telephonically. Expected Discharge Date: 03/25/2020 Referred Level of Care: SNF Barriers: Medical Stability, Transportation Current Referrals and Status 1. [facility]-Reviewing Clinical 2. [facility]-Reviewing Clinical 3. [facility]-Reviewing Clinical 4. [facility]-Reviewing Clinical 5. [facility]-Reviewing Clinical 6. [facility]-Reviewing Clinical CHEMISTRY SPECIALIST received update from [facility] that patient will need SNF (Longterm Facility) at discharge. CM stated per her conversation with patients, significant other (HCPOA) that if patient needed SNF she preferred somewhere close to home. CHEMISTRY SPECIALIST sent SNF referrals through [facility] based on patient's zip code. Social work will remain available to assist as needed. PRIYA Longoria, JANEL Medical Social Work [phone] Clotilde Everett [facility] - 03/22/2020 4:00 PM EDT Department of Pharmacy Renal Documentation Note Patient: [facility]aine Crow[facility] Plan: The patient is currently prescribed acyclovir 900mg IV Q8H. The patient's most recent renal functionmarkers include: Creatinine Date Value Ref Range Status 03/22/2020 1.11 0.70 - 1.30 mg/dL Final Patient's CrCl is estimated to be 76 mL/min I/O last 3 completed shifts: In: 2599.2 [I.V.:2066.2; IV Piggyback:533] Out: 925 [Urine:925] Based on these values - The following adjustments have been made: Patient Actual BW 92 kg; IBW 73.2 kg; patient is 126% IBW; will use adjusted BW for acyclovir dosing--> Adj BW: 80.7 kg; will changeto acyclovir 800mg IV Q8H. I have modified the orders in I[facility]IS to reflect the above plan. A pharmacist will continue to follow patient and recommend drug levels and dose changes as clinically appropriate. Please contact with any questions, Name: Clotilde Vickers RPH Phone: [phone] Date/Time: 03/22/2020 4:00 PM Cindy Harris RN - 03/22/2020 2:39 PM EDTProgression of Care Note Expected Discharge Date: 03/25/2020 Medical Milestones Remaining: AMS/Neuro workup in process. Assessment and Discharge Plan as of 03/22/2020 2:39 PM Discharge dispo TBD. Plan was discussed with Caregiver (Significant Other) Greer Lian, on this date. Information from the patient, family, caregiver or other authorized food service representative(s) was obtained telephonically. Anticipated discharge disposition: Longterm Facility(TBD) Anticipated Services at Discharge: Physical Therapy, Occupational Therapy, Longterm Explanation of Barriers: CCM and SW will assist with discharge needs. Readmission Risk Score Risk of Readmission: 7 Category Reference: ? Low: 0% - 16% ? Medium ? Low: 17% - 32% ? Medium ? High: 33% - 48% ? High: 49% - 100% Cindy Harris RN - 03/22/2020 2:24 PM EDTDischarge Planning Patient Assessment Admission Type Reason for Admission: AMS Is the patient able to participate in the assessment?: No Explanation of why patient is unable to participate: AMS Information source: Significant Other or Partner Information Source Name/Contact: Greer Beal [phone] Demographics Verified and Updated: Yes Readmission Assessment Has the patient been admitted to any hospital in the last 30 days?: No Advanced Care Planning Has the patient completed Advance Directives?: Completed, Not Available in Medical Record(Sig Other Greer Beal is HCPOA. ) Copy of Advance Directives was requested?: Yes(HCPOA document will be faxed to [facility].) Legal Next of Kin Does the patient have a Guardian?: No Spouse: No Adult Child(sean), List All Adult Children: No Parent(s) - List All Living Parents: No Adult Sibling(s), List All Adult Siblings: No(Brother is estranged x 30 yrs.) Referral to Social Work to Identify Legal Next of Kin?: No Reviewed and Updated in Demographics? : Yes Outpatient Providers Does patient have a primary care physician? : Yes When was the patient's last PCP visit?: > one year Does the patient follow any specialists?: No Reviewed and updated Care Team?: (n/a) Patient Care Team: [facility] as PCP - General (Unallocated) Environment/Caregivers/Services Is the patient from a facility or prison?: No Patient lives with: Significant Other Living Environment: House How many steps does the patient have to navigate to enter or inside the home? : 1(ranch ) Does the patient have a first floor set-up with bed and bathroom?: Yes Patient Caregiving Responsibilities: Self Patient-identified caregiver/support network: Friends Who does the patient identify as a teachable caregiver(s)?: Significant Other Does the patient use a home health or hospice agency?: No Does the patient use any community programs or services?: Yes Select Program, Services, Resources : Meals on Wheels Does the patient have a Staff Forester or Director Emergency Services?: No Does patient use DME? : walker Does the patient use oxygen?: No Does patient use medical supplies? : none Anticipated Changes Related to Illness/Injury? : Unknown at this time Initial ADLs Prior to Arrival What is the patient's baseline physical functioning prior to this acute illness?: independent What is the patient's baseline cognitive functioning prior to this acute illness?: assist with decision making Is the patient's baseline functioning changed by this acute illness? : Yes Changes observed : Physical, Cognitive Concerns with patient being able to care for themselves at home? : Yes Are there therapy or specialists consults?: Yes Select consult type: (Neurology) Does the patient's home require any home modifications for discharge? : No CM to recommend therapy or other consults? : No Medication Management Does the patient have prescription insurance coverage? : Yes Is the patient on Coumadin/Warfarin? : No [id number] [place] [address] [id number] [phone] [facility] [id number] [employer] Does the patient or food service representative express financial concerns? : No Coping/Stress Concerns about patient?s coping and stress?: Unable to Assess Concerns about patient?s caregiver?s coping and stress?: No Values and Beliefs Cultural or latter-day practices that may impact discharge planning and/or medical care?: No Initial Discharge Planning Anticipated discharge disposition: Longterm Facility(TBD) Transportation Available for Discharge: Ambulance Anticipated DME: walker Anticipated Services at Discharge: Physical Therapy, Occupational Therapy, Longterm Patient Assessment Completed: Yes Risk of Readmission: 7 Category Reference: ? Low: 0% - 16% ? Medium Low: 17% - 32% ? Medium High: 33% - 48% ? High: 49% - 100% Expected Discharge Date: 03/25/2020 Discharge Planning Summary Patient lives at home with Significant Other and does not have home health care services or DME. Discharge dispo TBD pending PT/OT recs and patient's progression. Case Management Plan CCM and Director Emergency Services will assist with discharge needs. Information for this assessment was obtained telephonically. Ramses Morillo MD - 03/22/2020 11:01 AM EDT Internal Medicine Daily Progress Note Patient: Blaine Crowley, 1955, [id number] Physician: Ramses Flanagan MD, PGY2, Pager #[phone], GM 4 service Subjective/Interval History: Admitted overnight, difficult to arouse this AM Objective: Vitals: 03/22/20 0735 BP: 108/67 Pulse: 78 Resp: 20 Temp: 98.2 ?F (36.8 ?C) O2 Device: room air (03/22/20 0735) General: somnolent, difficult to arouse HEENT: NC/AT, PERRL. No appreciable neck stiffness CV: RRR, no murmurs, rubs, S3 or S4. Pulm: Normal work of breathing. Lungs clear to auscultation bilaterally. No wheezes, rales or rhonchi. Abd: Soft Extremities: can wiggle toes on L side to command occasionally Neuro: difficult to arouse Skin: No areas of ecchymoses, erythema, rashes or wounds found There is no height or weight on file to calculate BMI. Data Review: Recent Labs 03/21/20211903/22/20 0348 WBC 17.04* 17.58* HGB 15.2 14.1 HCT 46.2 43.6 PLATELET 247 246 SODIUM 134 137 POTASSIUM 5.1* 4.4 CHLORIDE 102 105 CO2 21* 21* BUN 15 17 CREATSERUM 1.11 1.11 CALCIUM 9.1 -- MAGNESIUM 1.8 -- ALBUMIN 4.4 -- BILITOTAL 0.6 -- BILIDIRECT 0.1 -- AST 39 -- ALT 33 -- ALKPHOS 44 -- PT 13.5 -- INR 1.0 -- PTT 27.0 -- Lab Results Component Value Date LACT 3.2 (H) 03/22/2020 LACT 3.02 (H) 03/22/2020 LACT 3.57 (H) 03/21/2020 XR CHEST AP PORTABLE ED Final Result IMPRESSION: No acute cardiopulmonary disease. STROKE HEAD-STROKE ALERT ONLY Final Result IMPRESSION: No acute intracranial hemorrhage. Hypoattenuation along the anterior right basal ganglia is unchanged since the outside facility CT earlier same day, and could represent potentially an acute lacunar infarct, sequela of hypoxic-ischemic injury, or toxic metabolic process such as carbon monoxide toxicity. Remote infarcts of the left frontal, parietal, and temporal lobes as well as of the right parietal lobe and right basal ganglia with associated ex vacuo dilation of the left lateral ventricle. Findings were discussed with Ana Burns MD at 2119 on March 21, 2020. I personally viewed and interpreted these images and I have reviewed and approved this report. FLUORO LUMBAR PUNCTURE (Results Pending) Assessment/Plan: In summary, Blaine Crowley is a 64 y.o. male with a PMHx of CVA w/ residual right-sided weakness (2012) and Seizures who presents with altered mental status. ? Altered Mental Status / Acute Encephalopathy Patient found unresponsive 614 AM. DDx including stroke, seizure/post-ictal (including NCSE), meningitis. Concern for stroke given CT head w/ hypoattenuation along anterior right basal ganglia potentially representing an acute lacunar infarct, sequela of HIE, or toxic metabolic process (e.g. CO toxicity). Concern for seizure given seizure hx. Concern for Meningitis given elevated WBC & lactate and no other focal infectious signs. APAP, ASA negative. CK 161. UDS only w/ diphenhydramine. Labs forencephalopathy unremarkable. - Neurology c/s - cEEG monitoring for nonconvulsive status epilepticus - S/p 1g of Keppra; Keppra 500mg BID - LP failed in ED, IR for LP 03/22 - MRI Brain w/o contrast after EEG per Neurology - Blood cultures pending - Empiric Tx of Meningitis w/ Vancomycin, Rocephin, Ampicillin, and Acyclovir - Dexamethasone 10mg q6hrs x 4days - PT/OT/Speech evaluations when patient is more alert ? Leukocytosis Unclear etiology. Consider infectious etiology (meningitis) given elevated lactate. May be due to seizure vs reactive as well. - Trend with CBC daily ? Elevated Lactic Acid Unclear etiology. DDx infectious etiology (meningitis) vs seizure. - Repeat lactate in 6hrs DVT prophylaxis with Lovenox post LP Disposition: 4 for encephalopathy workup Code status is FULL CODE Staffed with Dr. Gonzalez Signed, Ramses Flanagan MD PGY 2 Pager: [phone] Associated attestation - Goldy Gonzalez MD - 03/22/2020 5:33 PM EDTPatient seen and evaluated with resident. See H&P for further details.Alka Sifuentes - 03/22/2020 10:02 AM EDT Patient Information: Inpatient/Outpatient: inpatient Weight: 202 Code Status: full IV: no Procedure Information: Exam: Lumbar Puncture with Fluroscopy Needle In: 957 Needle Out: 1005 Attending: omari Resident: tito gupta Patient Summary: Pre Pain: un able to assess Post Pain: un able to assess Things To Do: Report Handoff: Patient to lie flat until: 1105 amar Daly MBBS - 03/22/2020 7:49 AM EDTBrief Neurology Update: Removed order for MRI Brain with and without contrast given need for cEEG first. Discussed with EMU boiler/chiller technician and will have cEEG placed. Will place order for MRI brain after discontinuation of cEEG. Full Neurology consult note by Dr. Burns to follow. 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) Altered mental status Advance Directives Documents on File Type Date Recorded Patient Calciner Feeder Explanati on HealthCare Power of Poultry Hatchery Man 03/21/2020 12:00 AM Latest Code Status on File Code Status Date Activated Date Inactivated Comments Full Code 03/22/2020 3:10 AM Documents on File Type Date Recorded Patient Calciner Feeder Explanati on Advance Directive(s) 11/15/2016 10:16 AM Advance Directive(s) 11/15/2016 7:38 AM Summary Purpose Family History No Family History Records Found Additional Source Comments FOR RECORDS PERTAINING TO PATIENTS WHO ARE OR HAVE BEEN ENROLLED IN A CHEMICAL DEPENDENCY/SUBSTANCE ABUSE PROGRAM, SOME INFORMATION MAY BE OMITTED. This clinical summary was aggregated from multiple sources. Caution should be exercised in using it in the provision of clinical care. This summary normalizes information from multiple sources, and as a consequence, information in this document may materially changethe coding, format and clinical context of patient data. In addition, data may be omittedin some cases. CLINICAL DECISIONS SHOULD BE BASED ON THE PRIMARY CLINICAL RECORDS. [facility] provides no warranty or guarantee of the accuracy or completeness of information in this document. UNRECOGNIZED CONTENT PROVIDED BELOW FOR UNRECOGNIZED SECTION Reason for Visit Reason Comments Altered mental status Status Reason Specialty Diagnoses / Procedures Referred By Ericka contrerasact Referred To Contact UNRECOGNIZED CONTENT PROVIDED BELOW FOR UNRECOGNIZED SECTION No Status Records Found UNRECOGNIZED CONTENT PROVIDED BELOW FOR UNRECOGNIZED SECTION INFORMATION SOURCE DATE CREATED AUTHOR AUTHOR'S OPHELIAO N 04/26/2020 [facility] UNRECOGNIZED CONTENT PROVIDED BELOW FOR UNRECOGNIZED SECTION Source Comments In the event this information is protected by the Federal Confidentiality of Alcohol and Drug Abuse Patient Records regulations: The Federal rules restrict any use of the information to criminally investigate or prosecute any alcohol or drug abuse patient.[facility]
--- OUTSIDE RECORDS SUMMARY | 2020-07-25 13:19 | XMS RPT_ITS | CCD ---
:1955 External Reference #:[id number] Author Organization [facility] Care Team Providers Name Role Phone [facility] Other Primary Care Provider Los PEREZ Referring Unavailable Ericka LUQUE Admitting Unavailable CONSULT Consulting Unavailable DIMITRIS Attending Unavailable Jm Primary Care Provider Allergies Reported Allergen Reaction(s) Severity Date of Onset Location Iodine Rash 09-26-2016 - [facility] (44981) Medications Current Medications Medication Name Sig Date Prescriber Location Aspirin aspirin 81 MG Chew 04-04-2020 Carly Morrison [facility] Tab chewable tablet 1 [place] (35725) tablet by Per NG tube route daily. 0 04/04/2020 Active aspirin chewable tablet 81 mg 03-26-2020 - 04-06-2020 [facility] (38424) atorvastatin atorvastatin 80 MG tablet 1 04-03-2020 [facility] tablet by Per NG tube route at (22367) bedtime. 0 04/03/2020 Active atorvastatin (LIPITOR) tablet 80 03-25-2020 - 04-06-2020 [facility] mg (55011) atorvastatin (LIPITOR) tablet 40 03-23-2020 - 03-25-2020 [facility] mg (14716) levETIRAcetam levETIRAcetam 100 MG/ML oral 04-03-2020 [facility] solution 10 mL by Per NG tube (09634) route every 12 hours. 0 04/03/2020 Active levETIRAcetam (KEPPRA) 03-30-2020 - Goldy Gonzalez [facility] oral solution 1,000 mg 04-06-2020 [place] (4 9951) levETIRAcetam (KEPPRA) 03-30-2020 [facility] tablet 1,000 mg 03-30-2020 [place] (94111) Multiple Vitamin Multiple Vitamin 04-04-2020 [facility] (multivitamin) tablet (multivitamin) tablet Take [place] (54202) 1 tablet by mouth daily. 0 04/04/2020 Active Nutritional Supplements Nutritional Supplements 04-03-2020 [facility] (Osmolite 1.2 Ernst) Liquid (Osmolite 1.2 Ernst) Liquid [place] (29956) 95 mL/hr by Nasogastric route every 24 hours. 0 04/03/2020 Active POLYETHYLENE GLYCOL 3350 polyethylene glycol 17 g 04-04-2020 [facility] Pack packet 1 packet by [facility] (52121) Per NG tube route daily. 0 04/04/2020 Active polyethylene glycol 03-25-2020 - 04-06-2020 Casey Ericka Baca [facility] (MIRALAX) packet 17 g [place] (43 210) tamsulosin Tamsulosin HCl 0.4 MG 04-01-2020 - 04-06-2020 [facility] capsule Take 1 capsule by [facility] (27780) mouth daily. 0 04/04/2020 Active Water Water For Irrigation, 04-03-2020 [facility] Sterile (water po liquid, [facility] (46155) free water,) Solution 30 mL by Per NG tube route every 6 hours. 0 04/03/2020 Active water po liquid (free water) 04-01-2020 - 04-06-2020 [facility] oral 30 mL (00998) Completed/Discontinuned Medications Medication Name Sig Date Prescriber Location Acetaminophen acetaminophen 03-22-2020 - [facility] (TYLENOL) tablet 650 04-06-2020 [facility] mg (35470) acyclovir (ZOVIRAX) acyclovir (ZOVIRAX) 03-22-2020 - [facility] 800 mg in sodium 800 mg in sodium 03-23-2020 [facility] chloride 0.9%, with chloride 0.9%, with ( 17651) overfill 291 mL (total overfill 291 mL (total volume) IVPB volume) IVPB acyclovir (ZOVIRAX) acyclovir (ZOVIRAX) 03-22-2020 - [facility] 900 mg in sodium 900 mg in sodium 03-22-2020 [facility] chloride 0.9%, with chloride 0.9%, with ( 66520) overfill 293 mL (total overfill 293 mL (total volume) IVPB volume) IVPB acyclovir (ZOVIRAX) 900 mg in 03-22-2020 - 03-22-2020 [facility] sodium chloride 0.9%, with (4321 0) overfill 293 mL (total volume) IVPB Amoxicillin / amoxicillin-clavulanate 04-03-2020 - [facility] Clavulanate 875-125 MG tablet Take 1 04-06-2020 MED [facility] tablet by mouth every [address] hours for 6 days. 12 tablet 0 (64126) 04/03/2020 04/06/2020 Discontinued (Stop Taking at Discharge) ampicillin ampicillin (OMNIPEN) 2 g in 03-22-2020 - [facility] (OMNIPEN) 2 g in sodium chloride 0.9%, with 03-23-2020 MEDICAL sodium chloride overfill 120 mL (total CE NTER 0.9%, with volume) IVPB (18811) overfill 120 mL (total volume) IVPB Ampicillin-Sulbac [...] MEDICAL LIQUID) 40 % 50 CENTER mL (79309) Calcium Chloride dextrose 5% and lactated 03-28-2020 - [facility] / Glucose / ringers IV solution 1,000 mL 03-28-2020 MEDICAL Lactate / CENTER Potassium (73407) Chloride / Sodium Chloride Calcium Chloride lactated ringers IV solution 04-05-2020 - [facility] / Lactate / 1,000 mL 04-05-2020 [facility] Potassium CENTER Chloride / Sodium (00671) Chloride lactated ringers IV solution 04-01-2020 - 04-01-2020 [facility] 1,000 mL (82011) lactated ringers IV solution 03-22-2020 - 03-23-2020 [facility] 1,000 mL (60207) cefepime ceFEPIme (MAXIPIME) 2 g 03-21-2020 [facility] in dextrose 100 ml 03-22-2020 [place] (4 3210) premix IVPB cefTRIAXone cefTRIAXone (ROCEPHIN) 2 03-22-2020 - [facility] g in dextrose 50mL 03-24-2020 [place] (4 3210) premix IVPB CUSTOM MEDICATION CUSTOM MEDICATION Please 04-03-2020 [facility] check a Mg, K, and PO4 CENTE R (63111) daily and supplement as necessary 1 Each 0 04/03/2020 Active CUSTOM MEDICATION Please check a 04-03-2020 - 04-03-2020 [facility] Mg, K, and PO4 daily and (98832) supplement as necessary 1 Each 0 04/03/2020 04/03/2020 Discontinued (Reorder) Dexamethasone dexamethasone PF 03-22-2020 [facility] (DECADRON) injection 03-25-2020 [facility] 10 mg (56448) diphenhydrAMINE diphenhydrAMINE 05-10-2018 [place] ([place]y) [facility] (BENADRYL) 50 mg Annita Slade (90330) capsule Take 1 capsule (Pa) Annita by mouth as directed for 1 dose. one (1) hour prior to exam. 1 capsule 0 05/10/2018 Active Comment: Take 1 capsule by mouth as d irected for 1 dose. one (1) hour prior to exam. Enoxaparin enOXAParin (LOVENOX) 03-24-2020 [facility] injection 40 mg 04-06-2020 [facility] (40243) fluticasone fluticasone 10-22-2018 [facility] (FLONASE) 50 Diane (06823) mcg/actuation nasal Cathy spray Indications: Diane Middle ear effusion, bilateral Use 2 Sprays in each nostril once daily. Rinse mouth after use. 1 Bottle 1 10/22/2018 Active Comment: Use 2 Sprays in each nostril once daily. Rinse mouth after use. gadoterate gadoterate Meglumine 03-25-2020 - Rodrick Grissom [facility] Meglumine (DOTAREM) 5 MMOL/10ML 03-24-2020 Kaln[facility] (DOTAREM) 5 injection 3-60 mL (96524) MMOL/10ML injection 3-60 mL iohexol iohexol (OMNIPAQUE) 03-26-2020 - Shelley Bill [facility] (OMNIPAQUE) 300 300 MG/ML vial 50 mL 03-26-2020 [facility] MG/ML vial 50 mL (32124) iv contrast (will iv contrast (will be 05-10-2018 [place]) [facility] be provided with provided with Annita Slade (27209) radiology test) radiology test) CT (Pa) Annita [...] levETIRAcetam levETIRAcetam 03-23-2020 - Lamar Daly [facility] (KEPPRA) 1,000 mg in (KEPPRA) 1,000 mg in 03-30-2020 [facility] CENTER sodium chloride 0.9%, sodium chloride (43 210) with overfill 120 mL 0.9%, with overfill (total volume) IVPB 120 mL (total volume) IVPB levETIRAcetam (KEPPRA) 1,000 mg 03-21-2020 - 03-21-2020 [facility] in sodium chloride 0.9%, with (4 3210) overfill 120 mL (total volume) IVPB levETIRAcetam levETIRAcetam 03-22-2020 - [facility] (KEPPRA) 500 mg in (KEPPRA) 500 mg in 03-23-2020 [facility] sodium chloride sodium chloride (60808) 0.9%, with overfill 0.9%, with overfill 115 mL (total 115 mL (total volume) IVPB volume) IVPB levoFLOXacin levoFLOXacin 750 MG 04-07-2020 - [facility] tablet Take 1 04-12-2020 [facility] tablet by mouth (06711) daily for 5 days. 5 tablet 0 04/07/2020 04/12/2020 Active Lidocaine lidocaine 1% (PF) 03-22-2020 - Cathy [facility] (XYLOCAINE MPF) 1 % 03-22-2020 [facility] injection 3 mL (34947) meloxicam meloxicam (MOBIC) 07-19-2017 Darren Montalvo 15 mg tablet [facility] (4419 5) Indications: D [facility] Swelling of foot joint, right Take 1 tablet by mouth once daily. With food. 30 tablet 1 07/19/2017 Active Comment: Take 1 tablet by mouth once daily. With food. multivitamin tablet 1 multivitamin tablet 1 03-26-2020 - [facility] tablet tablet 04-06-2020 [facility] (34531) Osmolite 1.2 Ernst LIQD Osmolite 1.2 Ernst LIQD 04-02-2020 - [facility] 04-06-2020 [facility] (67548) Osmolite 1.2 Ernst LIQD 04-02-2020 - 04-02-2020 [facility] (58599) Osmolite 1.2 Ernst LIQD 03-29-2020 - 04-01-2020 [facility] (95711) Osmolite 1.2 Ernst LIQD 03-26-2020 - 03-29-2020 [facility] (49740) Perflutren Lipid Perflutren Lipid 03-25-2020 - Umberto Aguayo [facility] Microsphere Microsphere 03-25-2020 [facility] (DEFINITY) 1.5 mL (DEFINITY) 1.5 mL (4321 0) in Normal Saline in Normal Saline Flush 0.9% 8.5 mL Flush 0.9% 8.5 mL Piperacillin / piperacillin-tazob 04-04-2020 - [facility] tazobactam actam (ZOSYN) 4.5 04-06-2020 [facility] g in dextrose (93539) 100ml premix IVPB Sodium Chloride sodium chloride 04-04-2020 - Historical [facility] 0.9% IV solution 04-04-[address] (80185) sodium chloride 0.9% IV 03-21-2020 - 03-22-2020 [facility] MEDICAL solution 1,000 mL [place] (92281) sodium chloride 0.9% IV 03-21-2020 - 03-22-2020 Rishan T Wes [facility] MEDICAL [facility] (26081) Thiamine thiamine tablet 100 mg 03-26-2020 - [facility] 04-02-2020 [place] (33986) vancomycin (VANCOCIN) vancomycin (VANCOCIN) 03-22-2020 [facility] 1,750 mg in 5% 1,750 mg in 5% 03-24-2020 [place] (432 10) dextrose 292.5 ml dextrose 292.5 ml premade IVPB premade IVPB vancomycin (VANCOCIN) vancomycin (VANCOCIN) 03-21-2020 - [facility] 2,000 mg in 5% 2,000 mg in 5% 03-22-2020 CENTER (432 10) dextrose 295 ml dextrose 295 ml premade IVPB premade IVPB Problems Active Problems Category Problem Name Status Date Location Acute cerebrovascular Cerebrovascular accident Active 014 - [facility] disease [facility] (35151) Alcohol-related Alcohol abuse Active 06-23-2014 - [facility] linic disorders (49133) Chronic obstructive Pulmonary emphysema Active 08-25-2015 - [facility] pulmonary disease and (93574 ) bronchiectasis Hyperplasia of prostate Benign prostatic Active 10-30-2016 - [facility] hyperplasia (39015) 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 (43 210) Residual codes; Altered mental status Active 03-22-2020 - [facility] unclassified [facility] (80135) Past or Other Problems Category Problem Name Status Date Location Congestive heart Diastolic Completed 08-25-2015 - [facility] linic failure; nonhypertensive dysfunction (44 195) Genitourinary symptoms Vincent hematuria Completed 05-10-2018 [facility] and ill-defined (04801) conditions Other diseases of [place] of urinary Completed 10-30-2016 - [facility] bladder and urethra bladder (22260) Other screening for Raised prostate Completed 10-30-2016 - [facility] suspected conditions specific antigen (44 195) (not mental disorders or infectious disease) Residual codes; H/O: surgery Completed 06-23-2014 - [facility] inic unclassified (00192) Results Result Name Value Range Unit Interpretation Flag Date Location procalcitonin on 27-03-30 Procalcitonin 0.14 <=0.50 ng/mL Normal 04-06-2020 [facility] nter (20650) Comment: Order Comment: In adult, cri tically [...] By: #### PTISTR, P TT #### [facility] (Dale DIAZ) [address] [address] phosphate, inorganic on 2020-04-06 Phosphorous 4.0 2.2-4.6 mg/dL Normal 04-06-2020 [facility] (00 000) Comment: Performed By: #### PTISTR, P TT #### [facility] ([facility]) [address] [place] [address] 49916 magnesium on 04-06 Magnesium [Mass/Vol] 1.9 1.6-2.6 mg/dL Normal 0 [facility] nter (82428) Comment: Performed By: #### PTISTR, P TT #### [facility] ([facility]) [address] [place] [address] 67317 chem 7 (lytes,bun,crea,gluc) on 2020-04-06 Anion gap [Moles/Vol] 15 7-17 mmol/L Normal 04-06-20 [facility] nter (16329) Comment: Performed By: #### PTISTR, P TT #### [facility] ([facility]) [address] [place] [address] 03151 Chloride [Moles/Vol] 103 98-108 mmol/L Normal 0 [facility] nter (59713) Comment: Performed By: #### PTISTR, P TT #### [facility] ([facility]) [address] [place] [address] 28447 CO2 [Moles/Vol] 23 22-30 mmol/L Normal 04-06-2020 [facility] nter (89776) Comment: Performed By: #### PTISTR, P TT #### [facility] ([facility]) [address] [place] [address] 74978 Creatinine [Mass/Vol] 1.28 0.70-1.30 mg/dL Normal 04-06-20 20 [facility] (53108) Comment: Performed By: #### PTISTR, P TT #### [facility] ([facility]) [address] [place] [address] 25086 EST GFR, 60 >=60 mL/min/1.73sqM Normal 04-06-20 20 [facility] (56503) Comment: Performed By: #### PTISTR, P TT #### [facility] ([facility]) [address] [place] [address] 65598 EST GFR,Non 56 >=60 mL/min/1.73sqM Low 04-06 [facility] [place] [facility] (96288) Comment: Performed By: #### PTISTR, P TT #### [facility] ([facility]) [address] [place] [address] 28936 Glucose [Mass/Vol] 109 70-99 mg/dL High 04-06-2020 [facility] nter (21486) Comment: Performed By: #### PTISTR, P TT #### [facility] ([facility]) [address] [place] [address] 68321 Osmolality [Osmolality] 292 278-305 mOsm/kg Normal 2019 [facility] (08492) Comment: Performed By: #### PTISTR, P TT #### [facility] ([facility]) [address] [place] [address] 04240 Potassium [Moles/Vol] 4.3 3.5-5.0 mmol/L Normal 04-06-20 [facility] (41563) Comment: Performed By: #### PTISTR, P TT #### [facility] ([facility]) [address] [place] [address] 70476 Sodium [Moles/Vol] 137 133-143 mmol/L Normal 04-06-2020 [facility] nter (79807) Comment: Performed By: #### PTISTR, P TT #### [facility] ([facility]) [address] [place] [address] 86481 Urea nitrogen [Mass/Vol] 22 7-22 mg/dL Normal 04-06 [facility] nter (88124) Comment: Performed By: #### PTISTR, P TT #### [facility] ([facility]) [address] [place] [address] 88766 Urea nitrogen/Creatinine [Mass 17 mg/mg Normal 04-06-2020 [facility] ratio] [facility] (04430) Comment: Performed By: #### PTISTR, P TT #### [facility] ([facility]) [address] [place] [address] 29055 cbc and electronic diff on 2020-04-06 Basophils (Bld) [#/Vol] 0.11 0.00-0.09 K/uL High 2019 [facility] (77094) Comment: Performed By: #### PTISTR, P TT #### [facility] ([facility]) [address] [place] [address] 23233 Basophils/100 WBC (Bld) 0.9 % Normal 2019 [facility] nter (58412) Comment: Performed By: #### PTISTR, P TT #### [facility] ([facility]) [address] [place] [address] 22752 DIFF STATUS Electronic Differential Normal 03-10 [facility] (20780) Comment: Performed By: #### PTISTR, P TT #### [facility] ([facility]) [address] [place] [address] 65126 Eosinophils (Bld) 0.45 0.00-0.48 K/uL Normal 04-06-2020 [facility] [#/Vol] [facility] (69331) Comment: Performed By: #### PTISTR, P TT #### [facility] ([facility]) [address] [place] [address] 87270 Eosinophils/100 WBC (Bld) 3.8 % Normal 03-10 [facility] nter (81255) Comment: Performed By: #### PTISTR, P TT #### [facility] ([facility]) [address] [place] [address] 44758 Hematocrit (Bld) [Volume 36.0 39.6-48.8 % Low 04-06 [facility] fraction] [facility] (73977) Comment: Performed By: #### PTISTR, P TT #### [facility] ([facility]) [address] [place] [address] 68542 Hemoglobin (Bld) 11.6 13.4-16.8 g/dL Low 04-06-2020 [facility] [Mass/Vol] [facility] (01401) Comment: Performed By: #### PTISTR, P TT #### [facility] ([facility]) [address] [place] [address] 44844 Immature Grans % 0.8 % Normal 04-06-2020 [facility] (00 000) Comment: Performed By: #### PTISTR, P TT #### [facility] ([facility]) [address] [place] [address] 66730 Immature Grans Absolute 0.09 <=0.08 K/uL High 2019 [facility] nter (66735) Comment: Performed By: #### PTISTR, P TT #### [facility] ([facility]) [address] [place] [address] 17399 Lymphocytes (Bld) 1.24 0.83-3.57 K/uL Normal 04-06-2020 [facility] [#/Vol] [facility] (20069) Comment: Performed By: #### PTISTR, P TT #### [facility] ([facility]) [address] [place] [address] 58467 Lymphocytes/100 WBC (Bld) 10.4 % Normal 03-10 [facility] nter (12529) Comment: Performed By: #### PTISTR, P TT #### [facility] ([facility]) [address] [place] [address] 39337 MCV (RBC) [Entitic vol] 91.6 79.0-94.5 fL Normal 2019 [facility] (75808) Comment: Performed By: #### PTISTR, P TT #### [facility] ([facility]) [address] [place] [address] 80210 Mean Cell Hgb 29.5 26.1-33.3 pg Normal 04-06-2020 [facility] nter (22439) Comment: Performed By: #### PTISTR, P TT #### [facility] ([facility]) [address] [place] [address] 52604 Mean Cell Hgb Conc 32.2 31.9-36.5 g/dL Normal 04-06-2020 [facility] nter (64437) Comment: Performed By: #### PTISTR, P TT #### [facility] ([facility]) [address] [place] [address] 10068 Monocytes (Bld) [#/Vol] 1.08 0.24-0.93 K/uL High 2019 [facility] (73872) Comment: Performed By: #### PTISTR, P TT #### [facility] ([facility]) [address] [place] [address] 92709 Monocytes/100 WBC (Bld) 9.1 % Normal 2019 [facility] nter (57921) Comment: Performed By: #### PTISTR, P TT #### [facility] ([facility]) [address] [place] [address] 01077 Nucleated RBC (Bld) 0.0 <=0.2 /100 WBC Normal 04-06-2020 [facility] [#/Vol] [facility] (39616) Comment: Performed By: #### PTISTR, P TT #### [facility] ([facility]) [address] [place] [address] 37680 Platelet mean volume 11.2 8.7-12.3 fL Normal 0 [facility] (Bld) [Entitic vol] [facility] (42683) Comment: Performed By: #### PTISTR, P TT #### [facility] ([facility]) [address] [place] [address] 00747 Platelets (Bld) [#/Vol] 221 146-337 K/uL Normal 2019 [facility] (30786) Comment: Performed By: #### PTISTR, P TT #### [facility] ([facility]) [address] [place] [address] 76985 RBC (Bld) [#/Vol] 12.7 10.9-14.3 % Normal 04-06-2020 O [facility] nter (90130) Comment: Performed By: #### PTISTR, P TT #### [facility] ([facility]) [address] [place] [address] 61690 RBC (Bld) [#/Vol] 3.93 4.38-5.83 M/uL Low 04-06-2020 O [facility] nter (73136) Comment: Performed By: #### PTISTR, P TT #### [facility] ([facility]) [address] [place] [address] 28398 Segs + Bands Auto 75.0 % Normal 04-06-2020 O [facility] (00 000) Comment: Performed By: #### PTISTR, P TT #### [facility] ([facility]) [address] [place] [address] 01761 Segs + Bands,Absolute Auto 8.92 1.57-6.19 K/uL High [facility] (86593) Comment: Performed By: #### PTISTR, P TT #### [facility] ([facility]) [address] [place] [address] 79611 WBC (Bld) [#/Vol] 11.89 3.73-10.10 K/uL High 04-06-2020 [facility] nter (77155) Comment: Performed By: #### PTISTR, P TT #### [facility] ([facility]) [address] [place] [address] 08674 No panel information on 2020-04-06 Interpretation and Normal 04-06-2020 [facility] review of laboratory MEDICAL results CENTER (95804) Procalcitonin 0.14 <=0.50 ng/mL 04-06-2020 [facility] [Mass/Vol] [facility] (85654) In adult, critically 0 [facility] ill [facility] patients, [place] DICAL studies have CENTER demonstrated that (4 [...] 15 7 - 17 mmol/L 04-06-2020 [facility] [Moles/Vol] [facility] (73081) Chloride [Moles/Vol] 103 98 - 108 mmol/L 0 [facility] (68262[facility] CO2 [Moles/Vol] 23 22 - 30 mmol/L 04-06-2020 [facility] (56903) Creatinine 1.28 0.7 - mg/dL 04-06-2020 [facility] [Mass/Vol] 1.3 [facility] (38786) GFR/1.73 sq 56 >=60 mL/min/ Low 04-06-2020 [facility] M.predicted MDRD mL/min/1 {1.73_m MED ICAL (S/P/Bld) [Vol .73sqM 2} CENTE R rate/Area] (32894) GFR/1.73 sq >=60 >=60 mL/min/ 04-06-2020 [facility] M.predicted MDRD mL/min/1 {1.73_m MED ICAL (S/P/Bld) [Vol .73sqM 2} CENTE R rate/Area] ([id number]) Glucose [Mass/Vol] 109 70 - 99 mg/dL High 04-06-2020 [facility] ([facility]) Interpretation and Normal 04-06-2020 [facility] review of laboratory MEDICAL results [place] ([facility]) Interpretation and Abnormal 04-06-2020 [facility] review of laboratory MEDICAL results [place] ([facility]) Magnesium [Mass/Vol] 1.9 1.6 - mg/dL 0 [facility] 2.6 [facility] ([facility]) Osmolality Calc 292 OTH - 04-06-2020 [facility] [Osmolality] [facility] ([facility]) Phosphate [Mass/Vol] 4.0 2.2 - mg/dL 0 [facility] 4.6 [facility] ([facility]) Potassium 4.3 3.5 - 5 mmol/L 04-06-2020 [facility] [Moles/Vol] [facility] ([facility]) Sodium [Moles/Vol] 137 133 - mmol/L 04-06-2020 [facility] 143 [facility] ([facility]) Urea nitrogen 22 7 - 22 mg/dL 04-06-2020 [facility] [Mass/Vol] [facility] ([facility]) Urea 17 mg/mg 04-06-2020 [facility] R nitrogen/Creatinine MEDICAL [Mass ratio] [place] ([facility]) Basophils (Bld) 0.11 0 - 0.09 K/uL High 04-06-2020 [facility] [#/Vol] [facility] ([facility]) Basophils/100 WBC 0.9 % 04-06-2020 [facility] (Bld) [facility] ([facility]) DIFF STATUS Electronic 04-06-2020 [facility] Differential [facility] ([facility]) Eosinophils (Bld) 0.45 0 - 0.48 K/uL 04-06-2020 [facility] [#/Vol] [facility] ([facility]) Eosinophils/100 WBC 3.8 % 04-06-2020 [facility] (Bld) [facility] ([facility]) Erythrocyte 12.7 10.9 - % 04-06-2020 [facility] distribution width 14.3 M EDICAL (RBC) [Ratio] [place] ([facility]) Hematocrit (Bld) 36.0 39.6 - % Low 04-06-2020 [facility] [Volume fraction] 48.8 [facility] Hemoglobin (Bld) 11.6 13.4 - g/dL Low 04-06-2020 [facility] [Mass/Vol] 16.8 [facility] ([facility]) Immature 0.09 <=0.08 K/uL High 04-06-2020 [facility] R granulocytes (Bld) M EDICAL [#/Vol] [place] ([facility]) Immature 0.8 % 04-06-2020 [facility] R granulocytes/100 WBC MEDICAL (Bld) [place] ([facility]) Interpretation and Abnormal 04-06-2020 [facility] review of laboratory MEDICAL results [place] ([facility]) Lymphocytes (Bld) 1.24 0.83 - K/uL 04-06-2020 [facility] [#/Vol] 3.57 [facility] ([facility]) Lymphocytes/100 WBC 10.4 % 04-06-2020 [facility] (Bld) [facility] ([facility]) MCH (RBC) [Entitic 29.5 26.1 - pg 04-06-2020 [facility] mass] 33.3 [facility] ([facility]) MCHC (RBC) 32.2 31.9 - g/dL 04-06-2020 [facility] [Mass/Vol] 36.5 [facility] ([facility]) MCV (RBC) [Entitic 91.6 79 - fL 04-06-2020 [facility] vol] 94.5 [facility] ([facility]) Monocytes (Bld) 1.08 0.24 - K/uL High 04-06-2020 [facility] [#/Vol] 0.93 [facility] ([facility]) Monocytes/100 WBC 9.1 % 04-06-2020 [facility] (Bld) [facility] ([facility]) Neutrophils (Bld) 8.92 1.57 - K/uL High 04-06-2020 [facility] [#/Vol] 6.19 [facility] ([facility]) Nucleated RBC/100 0.0 <=0.2 % 04-06-2020 [facility] WBC (Bld) [Ratio] /100 WBC FL [facility] ([facility]) Platelet mean volume 11.2 8.7 - fL 0 [facility] (Bld) [Entitic vol] 12.3 [facility] (62170) Platelets (Bld) 221 146 - K/uL 04-06-2020 [facility] [#/Vol] 337 [facility] (68794) RBC (Bld) [#/Vol] 3.93 OTH - 10*6/uL Low 04-06-2020 [facility] (36737) Segmented 75.0 % 04-06-2020 [facility] R neutrophils/100 WBC MEDICAL (Bld) CENTER (93262) WBC (Bld) [#/Vol] 11.89 3.73 - K/uL High 04-06-2020 [facility] 10.1 [facility] (48039) xr chest portable o n 2020-04-05 XR CHEST PORTABLE EXAM: XR CHEST PORTABLE, 04/05/2020 10:24 AM Normal 04-05-2020 [facility] COMPARISON: 04/01/2020. [facility] CLINICAL INDICATIONS: [facility] RELEVANT CLINICAL HISTORY: (62750) FINDINGS: (Adequate technique) Life Support Devices: None [...] 04-05 Appearance (U) Clear Clear Normal 04-05-2020 [facility] (00 000) Comment: Performed By: #### PTISTR, P TT #### [facility] (Dale DIAZ) [address] [address] Bacteria LM.HPF (Urine ABSENT ABSENT Normal 020 [facility] sed) [#/Area] [facility] (22324) Comment: Performed By: #### PTISTR, P TT #### U [facility] (Dale DIAZ) [address] [place] [address] 20319 Blood Urine Negative Negative Normal 04-05-2020 [facility] nter (50780) Comment: Performed By: #### PTISTR, P TT #### U [facility] (Dale JOSE) [address] [place] [address] 02895 Color (U) Yellow Yellow Normal 04-05-2020 [facility] (00 000) Comment: Performed By: #### PTISTR, P TT #### U [facility] ([facility]) [address] [place] [address] 02020 Glucose Ql (U) Negative Negative Normal 04-05-2020 [facility] nter (33437) Comment: Performed By: #### PTISTR, P TT #### U [facility] [address] [place] [address] 63547 Ketones Ql (U) Negative Negative Normal 04-05-2020 [facility] nter (75028) Comment: Performed By: #### PTISTR, P TT #### U [facility] (Dale JOSE) [address] [place] [address] 14012 Leukocyte esterase Test Negative Negative Normal 2019 [facility] strip Ql (U) [facility] (54342) Comment: Performed By: #### PTISTR, P TT #### [facility] ([facility]) [address] [place] [address] 89282 Nitrites Urine Negative Negative Normal 04-05-2020 [facility] nter (03233) Comment: Performed By: #### PTISTR, P TT #### U [facility] ([facility] [address] [place] [address] 11320 pH (U) 7.5 5.0-7.0 [pH] Abnormal 04-05-2020 [facility] (00 000) Comment: Performed By: #### PTISTR, P TT #### U [facility] ([facility]) [address] [place] [address] 89141 Protein (U) 30 mg/dL Negative mg/dL Abnormal 04-05-2020 [facility] ate [Mass/Vol] [facility] nter (72161) Comment: Performed By: #### PTISTR, P TT #### [facility] ([facility]) [address] [place] [address] 07915 RBC LM.HPF (Urine sed) 0-2 0-2 Normal 020 [facility] [#/Area] Medical Ce nter (09900) Comment: Performed By: #### PTISTR, P TT #### U [facility] ([facility]) [address] [place] [address] 71910 Specific [place] Urine 1.019 1.001-1.035 Normal 04-05 [facility] (50491) Comment: Performed By: #### PTISTR, P TT #### U [facility] ([facility]) [address] [place] [address] 51374 Squamous/Epithelial Cells 1/hpf = 1+ 1/hpf = 1+, Normal 0 04-05-2020 [facility] 2-5/hpf = 2+, Univer sity 0/hpf = 0+, [facility] (00 000) Comment: Performed By: #### PTISTR, P TT #### U [facility] ([facility]) [address] [place] [address] 15889 Urobilinogen Urine 0.2 E.U./dL 0.2-1.[address] [facility] (01480) Comment: Performed By: #### PTISTR, P TT #### U [facility] ([facility]) [address] [place] [address] 57865 WBC LM.HPF (Urine sed) 0-5 0-5 Normal 020 [facility] [#/Area] Medical Ce nter (81615) Comment: Performed By: #### PTISTR, P TT #### U [facility] ([facility]) [address] [place] [address] 76870 phosphate, inorganic on 2020-04-05 Phosphorous 4.2 2.2-4.6 mg/dL Normal 04-05-2020 [facility] (00 000) Comment: Performed By: #### PTISTR, P TT #### [facility] (Dale JOSE) [address] [place] [address] 92699 magnesium on 04-05 Magnesium [Mass/Vol] 2.0 1.6-2.6 mg/dL Normal 0 [facility] nter (70629) Comment: Performed By: #### PTISTR, P TT #### [facility] ([facility] [address] [place] [address] 22820 chem 7 (lytes,bun,crea,gluc) on 2020-04-05 Anion gap [Moles/Vol] 14 7-17 mmol/L Normal 04-05-20 20 [facility] nter (58131) Comment: Performed By: #### PTISTR, P TT #### [facility] (Dale JOSE) [address] [place] [address] 73371 Chloride [Moles/Vol] 101 98-108 mmol/L Normal 0 [facility] nter (40563) Comment: Performed By: #### PTISTR, P TT #### [facility] ([facility] [address] [place] [address] 91477 CO2 [Moles/Vol] 25 22-30 mmol/L Normal 04-05-2020 [facility] nter (08042) Comment: Performed By: #### PTISTR, P TT #### U [facility] ([facility] [address] [place] [address] 83408 Creatinine [Mass/Vol] 1.32 0.70-1.30 mg/dL High 04-05-[address] [facility] (35222) Comment: Performed By: #### PTISTR, P TT #### [facility] ([facility]) [address] [place] [address] 82737 EST GFR, 60 >=60 mL/min/1.73sqM Normal 04-05-20 20 [facility] (93307) Comment: Performed By: #### PTISTR, P TT #### [facility] ([facility]) [address] [place] [address] 66534 EST GFR,Non 54 >=60 mL/min/1.73sqM Low 04-05 [facility] (73026) Comment: Performed By: #### PTISTR, P TT #### U [facility] ([facility]) [address] [place] [address] 18165 Glucose [Mass/Vol] 129 70-99 mg/dL High 04-05-2020 [facility] nter (41198) Comment: Performed By: #### PTISTR, P TT #### [facility] ([facility]) [address] [place] [address] 88992 Osmolality [Osmolality] 291 278-305 mOsm/kg Normal 2019 [facility] (95764) Comment: Performed By: #### PTISTR, P TT #### [facility] ([facility]) [address] [place] [address] 26761 Potassium [Moles/Vol] 4.1 3.5-5.0 mmol/L Normal 04-05-20 20 [facility] (15088) Comment: Performed By: #### PTISTR, P TT #### U [facility] ([facility]) [address] [place] [address] 77676 Sodium [Moles/Vol] 136 133-143 mmol/L Normal 04-05-2020 [facility] nter (78478) Comment: Performed By: #### PTISTR, P TT #### U [facility] ([facility]) [address] [place] [address] 44840 Urea nitrogen [Mass/Vol] 22 7-22 mg/dL Normal 04-05 [facility] nter (56116) Comment: Performed By: #### PTISTR, P TT #### [facility] ([facility]) [address] [place] [address] 07527 Urea nitrogen/Creatinine [Mass 17 mg/mg Normal 04-05-2020 [facility] ratio] [facility] (95397) Comment: Performed By: #### PTISTR, P TT #### [facility] ([facility]) [address] [place] [address] 18775 cbc and electronic diff on 2020-04-05 Basophils (Bld) [#/Vol] 0.09 0.00-0.09 K/uL Normal 2019 [facility] (17123) Comment: Performed By: #### PTISTR, P TT #### U [facility] ([facility]) [address] [place] [address] 79868 Basophils/100 WBC (Bld) 0.8 % Normal 2019 [facility] Ce nter (04943) Comment: Performed By: #### PTISTR, P TT #### U [facility] ([facility]) [address] [place] [address] 77553 DIFF STATUS Electronic Differential Normal 03-09 [facility] (88129) Comment: Performed By: #### PTISTR, P TT #### U [facility] ([facility]) [address] [place] [address] 37961 Eosinophils (Bld) 0.41 0.00-0.48 K/uL Normal 04-05-2020 [facility] [#/Vol] [facility] (34642) Comment: Performed By: #### PTISTR, P TT #### [facility] ([facility]) [address] [place] [address] 25006 Eosinophils/100 WBC (Bld) 3.5 % Normal 03-09 [facility] Ce nter (99829) Comment: Performed By: #### PTISTR, P TT #### [facility] ([facility]) [address] [place] [address] Hematocrit (Bld) [Volume 37.6 39.6-48.8 % Low 04-05 [facility] fraction] [facility] (82521) Comment: Performed By: #### PTISTR, P TT #### [facility] ( [facility]) [address] [place] [address] 45929 Hemoglobin (Bld) 12.2 13.4-16.8 g/dL Low 04-05-2020 [facility] [Mass/Vol] [facility] (02854) Comment: Performed By: #### PTISTR, P TT #### [facility] ([facility]) [address] [place] [address] 03662 Immature Grans % 0.9 % Normal 04-05-2020 [facility] (00 000) Comment: Performed By: #### PTISTR, P TT #### [facility] ([facility]) [address] [place] [address] 25035 Immature Grans Absolute 0.10 <=0.08 K/uL High 2019 [facility] Ce nter (31211) Comment: Performed By: #### PTISTR, P TT #### [facility] ([facility]) [address] [place] [address] 74995 Lymphocytes (Bld) 1.33 0.83-3.57 K/uL Normal 04-05-2020 [facility] [#/Vol] [facility] (91633) Comment: Performed By: #### PTISTR, P TT #### [facility] ([facility]) [address] [place] [address] 09772 Lymphocytes/100 WBC (Bld) 11.4 % Normal 03-09 [facility] nter (80380) Comment: Performed By: #### PTISTR, P TT #### [facility] ([facility]) [address] [place] [address] 71151 MCV (RBC) [Entitic vol] 92.2 79.0-94.5 fL Normal 2019 [facility] (96024) Comment: Performed By: #### PTISTR, P TT #### [facility] ([facility]) [address] [place] [address] 43788 Mean Cell Hgb 29.9 26.1-33.3 pg Normal 04-05-2020 [facility] nter (86190) Comment: Performed By: #### PTISTR, P TT #### [facility] ([facility]) [address] [place] [address] 63977 Mean Cell Hgb Conc 32.4 31.9-36.5 g/dL Normal 04-05-2020 [facility] nter (57817) Comment: Performed By: #### PTISTR, P TT #### [facility] ([facility]) [address] [place] [address] 62560 Monocytes (Bld) [#/Vol] 0.92 0.24-0.93 K/uL Normal 2019 [facility] (44790) Comment: Performed By: #### PTISTR, P TT #### [facility] ([facility]) [address] [place] [address] 54027 Monocytes/100 WBC (Bld) 7.9 % Normal 2019 [facility] nter (29513) Comment: Performed By: #### PTISTR, P TT #### [facility] ([facility]) [address] [place] [address] 15014 Nucleated RBC (Bld) 0.0 <=0.2 /100 WBC Normal 04-05-2020 [facility] [#/Vol] [facility] (12423) Comment: Performed By: #### PTISTR, P TT #### [facility] ([facility]) [address] [place] [address] 26982 Platelet mean volume 11.2 8.7-12.3 fL Normal 0 [facility] (Bld) [Entitic vol] [facility] (09448) Comment: Performed By: #### PTISTR, P TT #### [facility] ([facility]) [address] [place] [address] 87346 Platelets (Bld) [#/Vol] 233 146-337 K/uL Normal 2019 [facility] (11402) Comment: Performed By: #### PTISTR, P TT #### [facility] ([facility]) [address] [place] [address] 07357 RBC (Bld) [#/Vol] 12.8 10.9-14.3 % Normal 04-05-2020 O [facility] nter (26577) Comment: Performed By: #### PTISTR, P TT #### [facility] ([facility]) [address] [place] [address] 92227 RBC (Bld) [#/Vol] 4.08 4.38-5.83 M/uL Low 04-05-2020 O [facility] nter (84998) Comment: Performed By: #### PTISTR, P TT #### [facility] ([facility]) [address] [place] [address] 25970 Segs + Bands Auto 75.5 % Normal 04-05-2020 O [facility] (00 000) Comment: Performed By: #### PTISTR, P TT #### [facility] ([facility]) [address] [place] [address] 01689 Segs + Bands,Absolute Auto 8.81 1.57-6.19 K/uL High [facility] (40796) Comment: Performed By: #### PTISTR, P TT #### [facility] ([facility]) [address] [place] [address] 14320 WBC (Bld) [#/Vol] 11.66 3.73-10.10 K/uL High 04-05-2020 [facility] nter (14307) Comment: Performed By: #### PTISTR, P TT #### [facility] (Dale DIAZ) [address] [place] [address] 49229 No panel information on 2020-04-05 Appearance (U) Clear Clear 04-05-2020 [facility] (90751) Bacteria LM Ql ABSENT ABSENT 04-05-2020 [facility] (Urine sed) [facility] (25034) Color (U) Yellow Yellow 04-05-2020 [facility] (38141) Glucose Test strip Negative Negative 04-05-2020 [facility] (U) [Mass/Vol] [facility] (08885) Interpretation and Abnormal 04-05-2020 [facility] review of MEDICAL laboratory results [facility] (91004) Ketones (U) Negative Negative 04-05-2020 [facility] [Mass/Vol] [facility] (01155) Leukocyte esterase Negative Negative 04-05-2020 [facility] Test strip Ql (U) [facility] (16741) Nitrite Ql (U) Negative Negative 04-05-2020 [facility] (63513) pH (U) 7.5 5.0 - 7.0 [pH] Abnormal 04-05-2020 [facility] (75228) Protein (U) 30 mg/dL Negative mg/dL Abnormal 04-05-2020 [facility] [Mass/Vol] [facility] (79810) RBC (U) [#/Vol] Negative Negative /uL 04-05-2020 [facility] (04680) RBC LM.HPF (Urine 0-2 0 - 2 /HPF 04-05-2020 [facility] sed) [#/Area] [facility] (45336) Specific gravity 1.019 OTH - OTH 04-05-2020 [facility] (U) [Rel density] [facility] (46851) Squamous/Epithelia 1/hpf = 1+ 1/hpf = 1+, 04-05-20 20 [facility] l Cells 2-5/hpf = MEDICAL 2+, 0/hpf = CENTER 0+, ABSENT (97607) Urobilinogen (U) 0.2 E.U./dL 0.2 - 1.0 04-05-2020 [facility] [Mass/Vol] [facility] (55525) WBC LM.HPF (Urine 0-5 0 - 5 /HPF 04-05-2020 [facility] sed) [#/Area] [facility] (30225) IMPRESSION: 04-05-2020 [facility] Improved hazy MEDICA L airspace disease [place] TER in the lower lung (4 3210) zones. No new airspace disease. User, Interfaces - 0 10:47 AM EDT EXAM: XR CHEST PORTABLE, 04/05/2020 10:24 AM 04-05-2020 [facility] MEDICAL COMPARISON: 04/01/2020. CENTER (49045) CLINICAL INDICATIONS: fever RELEVANT CLINICAL HISTORY: FINDINGS: [...] 17 mmol/L 04-05-2020 [facility] [Moles/Vol] [facility] (79009) Chloride 101 98 - 108 mmol/L 04-05-2020 [facility] [Moles/Vol] [facility] (70659) CO2 [Moles/Vol] 25 22 - 30 mmol/L 04-05-2020 [facility] (39580) Creatinine 1.32 0.7 - 1.3 mg/dL High 04-05-2020 [facility] [Mass/Vol] [facility] (99045) GFR/1.73 sq 54 >=60 mL/min Low 04-05-2020 [facility] M.predicted MDRD mL/min/1.73s /{1.73 MEDICAL (S/P/Bld) [Vol qM _m2} [facility] R rate/Area] (50730) GFR/1.73 sq >=60 >=60 mL/min 04-05-2020 [facility] M.predicted MDRD mL/min/1.73s /{1.73 MEDICAL (S/P/Bld) [Vol qM _m2} [facility] R rate/Area] (47106) Glucose [Mass/Vol] 129 70 - 99 mg/dL High 04-05-2020 [facility] ([facility]) Interpretation and Abnormal 04-05-2020 [facility] review of MEDICAL laboratory results [facility] (96356) Interpretation and Normal 04-05-2020 [facility] review of MEDICAL laboratory results [facility] (31945) Magnesium 2.0 1.6 - 2.6 mg/dL 04-05-2020 [facility] [Mass/Vol] [facility] ([id number]) Osmolality Calc 291 OTH - OTH 04-05-2020 [facility] [Osmolality] [facility] ([id number]) Phosphate 4.2 2.2 - 4.6 mg/dL 04-05-2020 [facility] [Mass/Vol] [facility] ([id number]) Potassium 4.1 3.5 - 5 mmol/L 04-05-2020 [facility] [Moles/Vol] [facility] ([id number]) Sodium [Moles/Vol] 136 133 - 143 mmol/L 04-05-2020 [facility] ([id number]) Urea nitrogen 22 7 - 22 mg/dL 04-05-2020 [facility] [Mass/Vol] [facility] ([id number]) Urea 17 mg/mg 04-05-2020 [facility] nitrogen/Creatinin M EDICAL e [Mass ratio] [facility] ([id number]) Basophils (Bld) 0.09 0 - 0.09 K/uL 04-05-2020 [facility] [#/Vol] [facility] (02892) Basophils/100 WBC 0.8 % 04-05-2020 [facility] (Bld) [facility] ([id number]) DIFF STATUS Electronic 04-05-2020 [facility] Differential [facility] ([facility]) Eosinophils (Bld) 0.41 0 - 0.48 K/uL 04-05-2020 [facility] [#/Vol] [facility] ([id number]) Eosinophils/100 3.5 % 04-05-2020 [facility] WBC (Bld) [facility] ([facility]) Erythrocyte 12.8 10.9 - 14.3 % 04-05-2020 [facility] distribution width M EDICAL (RBC) [Ratio] [facility] ([facility]) Hematocrit (Bld) 37.6 39.6 - 48.8 % Low 04-05-2020 [facility] [Volume fraction] [facility] [place] ([id number]) Hemoglobin (Bld) 12.2 13.4 - 16.8 g/dL Low 04-05-2020 [facility] [Mass/Vol] [facility] ([id number]) Immature 0.10 <=0.08 K/uL High 04-05-2020 [facility] granulocytes (Bld) M JACQUIEICAL [#/Vol] [place] ([id number]) Immature 0.9 % 04-05-2020 [facility] granulocytes/100 MED ICAL WBC (Bld) [place] ([facility]) Interpretation and Abnormal 04-05-2020 [facility] review of MEDICAL laboratory results [facility] ([id number]) Lymphocytes (Bld) 1.33 0.83 - 3.57 K/uL 04-05-2020 [facility] [#/Vol] [facility] (95527) Lymphocytes/100 11.4 % 04-05-2020 [facility] WBC (Bld) [facility] (46803) MCH (RBC) [Entitic 29.9 26.1 - 33.3 pg 0 [facility] mass] [facility] (69366) MCHC (RBC) 32.4 31.9 - 36.5 g/dL 04-05-2020 [facility] [Mass/Vol] [facility] (54897) MCV (RBC) [Entitic 92.2 79 - 94.5 fL 04-05-2020 [facility] vol] [facility] (00947) Monocytes (Bld) 0.92 0.24 - 0.93 K/uL 04-05-2020 [facility] [#/Vol] [facility] (18469) Monocytes/100 WBC 7.9 % 04-05-2020 [facility] (Bld) [facility] (59124) Neutrophils (Bld) 8.81 1.57 - 6.19 K/uL High 04-05-2020 [facility] [#/Vol] [facility] (59992) Nucleated RBC/100 0.0 <=0.2 /100 % 04-05-2020 [facility] WBC (Bld) [Ratio] WBC ME DICAL [place] (43302) Platelet mean 11.2 8.7 - 12.3 fL 04-05-2020 [facility] volume (Bld) MEDICAL [Entitic vol] [place] (10689) Platelets (Bld) 233 146 - 337 K/uL 04-05-2020 [facility] [#/Vol] [facility] (10727) RBC (Bld) [#/Vol] 4.08 OTH - OTH 10*6/u Low 04-05-2020 [facility] L [facility] (56726) Segmented 75.5 % 04-05-2020 [facility] neutrophils/100 MEDI ERNST WBC (Bld) [place] (17571) WBC (Bld) [#/Vol] 11.66 3.73 - 10.1 K/uL High 04-05-2020 [facility] ([id number]) urine culture on 27-03-28 Bacteria identified Cx Nom No Growth Normal [facility] () [facility] (31507) Comment: Order Comment: Nails top vacu tainer. Urine must be to the fill line to process (4mls). If minimum v olume, send urine in a yellow top vacutainer tube.For straight cath urine s, a cut off of equal or greater than 10,000 CFU/mL is considered signifi cant. Performed By: #### PTISTR, P TT #### [facility] (D E[facility]ON[facility]) [address] [place] [address] 85315 phosphate, inorganic on 2020-04-04 Phosphorous 4.1 2.2-4.6 mg/dL Normal 04-04-2020 [facility] (00 000) Comment: Performed By: #### PTISTR, P TT #### [facility] ([facility]) [address] [place] [address] Phosphorous 4.0 2.2-4.6 mg/dL Normal 04-04-2020 [facility] (00 000) Comment: Performed By: #### PTISTR, P TT #### [facility] ([facility]) [address] [place] [address] 15430 novel coronavirus pcr on 2020-04-04 SARS-COV-2 NOT DETECTED NOT DETECTED Normal 04-04-[address] [facility] Ce nter (77560) Comment: Order Comment: Viral transpo rt media (red leader with pink fluid) or BAL specimen - Collection must b e done while wearing N-95 mask, eye protection, gown and gloves. Please labe l ALL specimens as 2018- rule out and deliver by hand.This test wa s performed using real time PCR and has been approved for the qualitative detection of SARS-CoV-2 nucleic acid. The test has been authorized by the [facility] under an emergency use authorization for use [...] By: #### PTISTR, P TT #### [facility] ([facility]) [address] [place] [address] 63060 magnesium on 04-04 Magnesium [Mass/Vol] 2.0 1.6-2.6 mg/dL Normal 0 [facility] nter (01761) Comment: Performed By: #### PTISTR, P TT #### [facility] ([facility]) [address] [place] [address] 98654 Magnesium [Mass/Vol] 1.9 1.6-2.6 mg/dL Normal 0 [facility] nter (06593) Comment: Performed By: #### PTISTR, P TT #### [facility] ([facility]) [address] [place] [address] 77522 chem 7 (lytes,bun,crea,gluc) on 2020-04-04 Anion gap [Moles/Vol] 14 7-17 mmol/L Normal 04-04-20 20 [facility] nter (99542) Comment: Performed By: #### PTISTR, P TT #### [facility] ([facility]) [address] [place] [address] 01465 Chloride [Moles/Vol] 101 98-108 mmol/L Normal 0 [facility] nter (06540) Comment: Performed By: #### PTISTR, P TT #### [facility] ([facility]) [address] [place] [address] 70285 CO2 [Moles/Vol] 24 22-30 mmol/L Normal 04-04-2020 [facility] nter (95657) Comment: Performed By: #### PTISTR, P TT #### [facility] ([facility]) [address] [place] [address] 94061 Creatinine [Mass/Vol] 1.06 0.70-1.30 mg/dL Normal 04-04-[address] [facility] (62783) Comment: Performed By: #### PTISTR, P TT #### [facility] ([facility] [address] [place] [address] 09865 EST GFR, 60 >=60 mL/min/1.73sqM Normal 04-04-20 [facility] (46989) Comment: Performed By: #### PTISTR, P TT #### [facility] ([facility]) [address] [place] [address] 83485 EST GFR,Non 60 >=60 mL/min/1.73sqM Normal 04-04 [facility] (75808) Comment: Performed By: #### PTISTR, P TT #### [facility] ([facility]) [address] [place] [address] 76131 Glucose [Mass/Vol] 110 70-99 mg/dL High 04-04-2020 [facility] Ce nter (46608) Comment: Performed By: #### PTISTR, P TT #### [facility] ([facility]) [address] [place] [address] 29752 Osmolality [Osmolality] 288 278-305 mOsm/kg Normal 2019 [facility] (28657) Comment: Performed By: #### PTISTR, P TT #### [facility] ([facility]) [address] [place] [address] 14839 Potassium [Moles/Vol] 4.3 3.5-5.0 mmol/L Normal 04-04-20 20 [facility] (76127) Comment: Performed By: #### PTISTR, P TT #### [facility] ([facility]) [address] [place] [address] 63050 Sodium [Moles/Vol] 135 133-143 mmol/L Normal 04-04-2020 [facility] nter (46327) Comment: Performed By: #### PTISTR, P TT #### [facility] ([facility]) [address] [place] [address] 02291 Urea nitrogen [Mass/Vol] 22 7-22 mg/dL Normal 04-04 [facility] nter (65595) Comment: Performed By: #### PTISTR, P TT #### [facility] ([facility]) [address] [place] [address] 75191 Urea nitrogen/Creatinine [Mass 21 mg/mg Normal 04-04-2020 [facility] ratio] [facility] (15597) Comment: Performed By: #### PTISTR, P TT #### [facility] ([facility]) [address] [place] [address] 12420 Anion gap [Moles/Vol] 15 7-17 mmol/L Normal 04-04-20 20 [facility] nter (35482) Comment: Performed By: #### PTISTR, P TT #### [facility] ([facility]) [address] [place] [address] 22376 Chloride [Moles/Vol] 102 98-108 mmol/L Normal 0 [facility] nter (90262) Comment: Performed By: #### PTISTR, P TT #### [facility] ([facility]) [address] [place] [address] 75601 CO2 [Moles/Vol] 25 22-30 mmol/L Normal 04-04-2020 [facility] nter (36591) Comment: Performed By: #### PTISTR, P TT #### [facility] ([facility]) [address] [place] [address] 95162 Creatinine [Mass/Vol] 1.10 0.70-1.30 mg/dL Normal 04-04-20 20 [facility] (27091) Comment: Performed By: #### PTISTR, P TT #### [facility] ([facility]) [address] [place] [address] 31562 EST GFR, 60 >=60 mL/min/1.73sqM Normal 04-04-20 20 [facility] (84161) Comment: Performed By: #### PTISTR, P TT #### [facility] ([facility]) [address] [place] [address] 02965 EST GFR,Non 60 >=60 mL/min/1.73sqM Normal 04-04 [facility] (65745) Comment: Performed By: #### PTISTR, P TT #### [facility] ([facility]) [address] [place] [address] 96235 Glucose [Mass/Vol] 136 70-99 mg/dL High 04-04-2020 [facility] nter (25703) Comment: Performed By: #### PTISTR, P TT #### [facility] ([facility]) [address] [place] [address] 20122 Osmolality [Osmolality] 294 278-305 mOsm/kg Normal 2019 [facility] (49777) Comment: Performed By: #### PTISTR, P TT #### [facility] ([facility]) [address] [place] [address] 13734 Potassium [Moles/Vol] 4.4 3.5-5.0 mmol/L Normal 04-04-20 [facility] (92458) Comment: Performed By: #### PTISTR, P TT #### [facility] ([facility]) [address] [place] [address] 69331 Sodium [Moles/Vol] 138 133-143 mmol/L Normal 04-04-2020 [facility] nter (34075) Comment: Performed By: #### PTISTR, P TT #### [facility] ([facility]) [address] [place] [address] 14046 Urea nitrogen [Mass/Vol] 19 7-22 mg/dL Normal 04-04 [facility] nter (19025) Comment: Performed By: #### PTISTR, P TT #### [facility] ([facility]) [address] [place] [address] 67298 Urea nitrogen/Creatinine [Mass 17 mg/mg Normal 04-04-2020 [facility] ratio] [facility] (19242) Comment: Performed By: #### PTISTR, P TT #### [facility] ([facility]) [address] [place] [address] 90074 cbc and electronic diff on 2020-04-04 Basophils (Bld) [#/Vol] 0.07 0.00-0.09 K/uL Normal 2019 [facility] (25127) Comment: Performed By: #### PTISTR, P TT #### [facility] ([facility]) [address] [place] [address] 18292 Basophils/100 WBC (Bld) 0.6 % Normal 2019 [facility] Ce nter (93980) Comment: Performed By: #### PTISTR, P TT #### [facility] ([facility]) [address] [place] [address] 58809 DIFF STATUS Electronic Differential Normal 03-09 [facility] (40102) Comment: Performed By: #### PTISTR, P TT #### [facility] ([facility]) [address] [place] [address] 22912 Eosinophils (Bld) 0.44 0.00-0.48 K/uL Normal 04-04-2020 [facility] [#/Vol] [facility] (97459) Comment: Performed By: #### PTISTR, P TT #### [facility] ([facility]) [address] [place] [address] 21856 Eosinophils/100 WBC (Bld) 3.5 % Normal 03-09 [facility] Ce nter (01493) Comment: Performed By: #### PTISTR, P TT #### [facility] ([facility]) [address] [place] [address] 25926 Hematocrit (Bld) [Volume 39.3 39.6-48.8 % Low 04-04 [facility] fraction] [facility] (68937) Comment: Performed By: #### PTISTR, P TT #### [facility] ([facility]) [address] [place] [address] 55561 Hemoglobin (Bld) 12.8 13.4-16.8 g/dL Low 04-04-2020 [facility] [Mass/Vol] [facility] (18351) Comment: Performed By: #### PTISTR, P TT #### [facility] ([facility]) [address] [place] [address] 42358 Immature Grans % 0.8 % Normal 04-04-2020 [facility] (00 000) Comment: Performed By: #### PTISTR, P TT #### [facility] ([facility]) [address] [place] [address] 69683 Immature Grans Absolute 0.10 <=0.08 K/uL High 2019 [facility] nter (50048) Comment: Performed By: #### PTISTR, P TT #### [facility] ([facility]) [address] [place] [address] 74698 Lymphocytes (Bld) 1.47 0.83-3.57 K/uL Normal 04-04-2020 [facility] [#/Vol] [facility] (17203) Comment: Performed By: #### PTISTR, P TT #### [facility] ([facility]) [address] [place] [address] 92076 Lymphocytes/100 WBC (Bld) 11.8 % Normal 03-09 [facility] nter (17653) Comment: Performed By: #### PTISTR, P TT #### [facility] ([facility]) [address] [place] [address] 80572 MCV (RBC) [Entitic vol] 91.2 79.0-94.5 fL Normal 2019 [facility] (00438) Comment: Performed By: #### PTISTR, P TT #### [facility] ([facility]) [address] [place] [address] 65796 Mean Cell Hgb 29.7 26.1-33.3 pg Normal 04-04-2020 [facility] nter (94921) Comment: Performed By: #### PTISTR, P TT #### [facility] ([facility]) [address] [place] [address] 71883 Mean Cell Hgb Conc 32.6 31.9-36.5 g/dL Normal 04-04-2020 [facility] nter (55434) Comment: Performed By: #### PTISTR, P TT #### [facility] ([facility]) [address] [place] [address] 45867 Monocytes (Bld) [#/Vol] 1.22 0.24-0.93 K/uL High 2019 [facility] (95123) Comment: Performed By: #### PTISTR, P TT #### [facility] ([facility]) [address] [place] [address] 88894 Monocytes/100 WBC (Bld) 9.8 % Normal 2019 [facility] nter (02382) Comment: Performed By: #### PTISTR, P TT #### [facility] ([facility]) [address] [place] [address] 51573 Nucleated RBC (Bld) 0.0 <=0.2 /100 WBC Normal 04-04-2020 [facility] [#/Vol] [facility] (06416) Comment: Performed By: #### PTISTR, P TT #### [facility] ([facility]) [address] [place] [address] 51464 Platelet mean volume 11.4 8.7-12.3 fL Normal 0 [facility] (Bld) [Entitic vol] [facility] (83221) Comment: Performed By: #### PTISTR, P TT #### [facility] ([facility]) [address] [place] [address] 06948 Platelets (Bld) [#/Vol] 208 146-337 K/uL Normal 2019 [facility] (97238) Comment: Performed By: #### PTISTR, P TT #### [facility] ([facility]) [address] [place] [address] 54679 RBC (Bld) [#/Vol] 4.31 4.38-5.83 M/uL Low 04-04-2020 O [facility] nter (57333) Comment: Performed By: #### PTISTR, P TT #### [facility] ([facility]) [address] [place] [address] 02430 RBC (Bld) [#/Vol] 13.0 10.9-14.3 % Normal 04-04-2020 O [facility] nter (15390) Comment: Performed By: #### PTISTR, P TT #### [facility] ([facility]) [address] [place] [address] 85481 Segs + Bands Auto 73.5 % Normal 04-04-2020 O [facility] (00 000) Comment: Performed By: #### PTISTR, P TT #### [facility] ([facility]) [address] [place] [address] 82245 Segs + Bands,Absolute Auto 9.11 1.57-6.19 K/uL High [facility] (28422) Comment: Performed By: #### PTISTR, P TT #### [facility] ([facility]) [address] [place] [address] 44671 WBC (Bld) [#/Vol] 12.41 3.73-10.10 K/uL High 04-04-2020 [facility] nter (69744) Comment: Performed By: #### PTISTR, P TT #### [facility] ([facility]) [address] [place] [address] 43017 blood culture on 27-03-28 Bacteria identified Cx NO GROWTH DAY 5 OF Normal 04-04-2020 [facility] Nom (Bld) 5 [facility] (51205) Comment: Order Comment: 2 Bottles (1 Set [...] Performed By: #### PTISTR, P TT #### [facility] ([facility] DIAZ) [address] [place] [address] 12289 No panel information on 2020-04-04 Anion gap 14 7 - 17 mmol/L 04-04-2020 [facility] [Moles/Vol] [facility] (08647) Chloride [Moles/Vol] 101 98 - 108 mmol/L 0 [facility] (80289) CO2 [Moles/Vol] 24 22 - 30 mmol/L 04-04-2020 [facility] (92627) Creatinine 1.06 0.7 - 1.3 mg/dL 04-04-2020 [facility] ER [Mass/Vol] [facility] (61706) GFR/1.73 sq >=60 >=60 mL/min/{1.7 04-04-2020 [facility] Coradopredicted MDRD mL/min/1.73sq 3_m2} MEDICAL (S/P/Bld) [Vol M CENTE R rate/Area] (77852) Glucose [Mass/Vol] 110 70 - 99 mg/dL High 04-04-2020 [facility] (23230) Interpretation and Abnormal 04-04-2020 [facility] review of laboratory MEDICAL results [place] (06554) Interpretation and Normal 04-04-2020 [facility] review of laboratory MEDICAL results [place] (44707) Magnesium [Mass/Vol] 2.0 1.6 - 2.6 mg/dL 0 [facility] (39228) Osmolality Calc 288 OTH - OTH 04-04-2020 [facility] [Osmolality] [facility] (60575) Phosphate [Mass/Vol] 4.1 2.2 - 4.6 mg/dL 0 [facility] (20839) Potassium 4.3 3.5 - 5 mmol/L 04-04-2020 [facility] [Moles/Vol] [facility] (66411) Sodium [Moles/Vol] 135 133 - 143 mmol/L 04-04-2020 [facility] (17502) Urea nitrogen 22 7 - 22 mg/dL 04-04-2020 [facility] [Mass/Vol] [facility] (07733) Urea 21 mg/mg 04-04-2020 [facility] nitrogen/Creatinine [facility] [Mass ratio] [place] (88300) Interpretation and Normal 04-04-2020 [facility] review of laboratory MEDICAL results [place] (06203) SARS-COV-2 NOT DETECTED NOT DETECTED 04-04-[address] [facility] (08787) Comment: Negative results do not prec lude [...] or clinically deteriorating. This test was 04-04-2020 [facility] performed using [employer] real time PCR and CE NTER has been approved (4 5366) for the qualitative detection of SARS-CoV-2 nucleic acid. The test has been authorized by the FDA under an emergency use authorization for use by authorized laboratories. Anion gap 15 7 - 17 mmol/L 04-04-2020 [facility] [Moles/Vol] [facility] (96409) Chloride [Moles/Vol] 102 98 - 108 mmol/L 0 [facility] (60303) CO2 [Moles/Vol] 25 22 - 30 mmol/L 04-04-2020 [facility] (05476) Creatinine 1.10 0.7 - 1.3 mg/dL 04-04-2020 [facility] [Mass/Vol] [facility] ([facility]) GFR/1.73 sq >=60 >=60 mL/min/{ 04-04-2020 [facility] M.predicted MDRD mL/min/1. 1.73_m2} MED ICAL (S/P/Bld) [Vol 73sqM CENTE R rate/Area] ([facility]) Glucose [Mass/Vol] 136 70 - 99 mg/dL High 04-04-2020 [facility] ([facility]) Interpretation and Abnormal 04-04-2020 [facility] review of laboratory MEDICAL results [place] ([facility]) Interpretation and Normal 04-04-2020 [facility] review of laboratory [facility] results [place] ([facility]) Magnesium [Mass/Vol] 1.9 1.6 - 2.6 mg/dL 0 [facility] ([facility]) Osmolality Calc 294 OTH - OTH 04-04-2020 [facility] [Osmolality] [facility] ([facility]) Phosphate [Mass/Vol] 4.0 2.2 - 4.6 mg/dL 0 [facility] ([facility]) Potassium 4.4 3.5 - 5 mmol/L 04-04-2020 [facility] [Moles/Vol] [facility] ([facility]) Sodium [Moles/Vol] 138 133 - 143 mmol/L 04-04-2020 [facility] ([facility]) Urea nitrogen 19 7 - 22 mg/dL 04-04-2020 [facility] [Mass/Vol] [facility] (34687) Urea 17 mg/mg 04-04-2020 [facility] nitrogen/Creatinine [facility] [Mass ratio] [place] ([facility]) Basophils (Bld) 0.07 0 - 0.09 K/uL 04-04-2020 [facility] [#/Vol] [facility] ([facility]) Basophils/100 WBC 0.6 % 04-04-2020 [facility] (Bld) [facility] ([facility]) DIFF STATUS Electronic 04-04-2020 [facility] Differential [facility] ([facility]) Eosinophils (Bld) 0.44 0 - 0.48 K/uL 04-04-2020 [facility] [place] [#/Vol] [facility] ([facility]) Eosinophils/100 WBC 3.5 % 04-04-2020 [facility] (Bld) [facility] [facility] Erythrocyte 13.0 10.9 - % 04-04-2020 [facility] distribution width 14.3 M EDICAL (RBC) [Ratio] [facility] ([facility]) Hematocrit (Bld) 39.3 39.6 - % Low 04-04-2020 [facility] [Volume fraction] 48.8 [facility] ([facility]) Hemoglobin (Bld) 12.8 g/dL Low 04-04-2020 [facility] [Mass/Vol] [facility] ([facility]) Immature 0.10 <=0.08 K/uL High 04-04-2020 [facility] granulocytes (Bld) M EDICAL [#/Vol] [place] ([facility]) Immature 0.8 % 04-04-2020 [facility] granulocytes/100 WBC MEDICAL (Bld) [place] ([facility]) Interpretation and Abnormal 04-04-2020 [facility] review of laboratory MEDICAL results [place] ([facility]) Lymphocytes (Bld) 1.47 0.83 - K/uL 04-04-2020 [facility] [#/Vol] 3.57 [facility] ([facility] Lymphocytes/100 WBC 11.8 % 04-04-2020 [facility] (Bld) [facility] ([facility]) MCH (RBC) [Entitic 29.7 26.1 - pg 04-04-2020 [facility] mass] 33.3 [facility] ([facility] [facility]) MCHC (RBC) 32.6 31.9 - g/dL 04-04-2020 [facility] [Mass/Vol] 36.5 [facility] ([facility]) MCV (RBC) [Entitic 91.2 79 - 94.5 fL 04-04-2020 [facility] vol] [facility] ([facility] Monocytes (Bld) 1.22 0.24 - K/uL High 04-04-2020 [facility] [#/Vol] 0.93 [facility] ([facility] Monocytes/100 WBC 9.8 % 04-04-2020 [facility] (Bld) [facility] ([facility] [facility]) Neutrophils (Bld) 9.11 1.57 - K/uL High 04-04-2020 [facility] [#/Vol] 6.19 [facility] (45190) Nucleated RBC/100 0.0 <=0.2 % 04-04-2020 [facility] WBC (Bld) [Ratio] /100 WBC [facility] (15622) Platelet mean volume 11.4 8.7 - fL 0 [facility] (Bld) [Entitic vol] 12.3 [facility] (63335) Platelets (Bld) 208 146 - 337 K/uL 04-04-2020 [facility] [#/Vol] [facility] (71912) RBC (Bld) [#/Vol] 4.31 OTH - OTH 10*6/uL Low 04-04-2020 [facility] (68267) Segmented 73.5 % 04-04-2020 [facility] neutrophils/100 WBC [facility] (Bld) [place] (54664) WBC (Bld) [#/Vol] 12.41 3.73 - K/uL High 04-04-2020 [facility] 10.1 [facility] (07368) phosphate, inorganic on 2020-04-03 Phosphorous 4.3 2.2-4.6 mg/dL Normal 04-03-2020 [facility] (00 000) Comment: Performed By: #### PTISTR, P TT #### [facility] ([place]ale DIAZ) [address] [address] Phosphorous 4.2 2.2-4.6 mg/dL Normal 04-03-2020 [facility] (00 000) Comment: Performed By: #### PTISTR, P TT #### [facility] (Dale DIAZ) [address] [place] [address] 96556 magnesium on 2019-04-03 Magnesium [Mass/Vol] 2.0 1.6-2.6 mg/dL Normal 0 [facility] nter (58649) Comment: Performed By: #### PTISTR, P TT #### [facility] (Dale DIAZ) [address] [place] [address] 30406 Magnesium [Mass/Vol] 2.0 1.6-2.6 mg/dL Normal 0 [facility] nter (92869) Comment: Performed By: #### PTISTR, P TT #### [facility] ([facility]) [address] [place] [address] 37765 chem 7 (lytes,bun,crea,gluc) on 2020-04-03 Anion gap [Moles/Vol] 17 7-17 mmol/L Normal 04-03-20 20 [facility] nter (89696) Comment: Performed By: #### PTISTR, P TT #### [facility] ([facility]) [address] [place] [address] 68088 Chloride [Moles/Vol] 102 98-108 mmol/L Normal 0 [facility] nter (01968) Comment: Performed By: #### PTISTR, P TT #### [facility] ([facility]) [address] [place] [address] 78401 CO2 [Moles/Vol] 21 22-30 mmol/L Low 04-03-2020 [facility] (00 000) Comment: Performed By: #### PTISTR, P TT #### [facility] ([facility]) [address] [place] [address] 89592 Creatinine [Mass/Vol] 1.01 0.70-1.30 mg/dL Normal 04-03-20 20 [facility] (05197) Comment: Performed By: #### PTISTR, P TT #### [facility] ([facility]) [address] [place] [address] 07839 EST GFR, 60 >=60 mL/min/1.73sqM Normal 04-03-20 20 [facility] (21894) Comment: Performed By: #### PTISTR, P TT #### [facility] ([facility]) [address] [place] [address] 53826 EST GFR,Non 60 >=60 mL/min/1.73sqM Normal 04-03 [facility] [place] [facility] (57522) Comment: Performed By: #### PTISTR, P TT #### [facility] ([facility]) [address] [place] [address] 58418 Glucose [Mass/Vol] 105 70-99 mg/dL High 04-03-2020 [facility] nter (66106) Comment: Performed By: #### PTISTR, P TT #### [facility] ([facility]) [address] [place] [address] 87207 Osmolality [Osmolality] 288 278-305 mOsm/kg Normal 2019 [facility] (05336) Comment: Performed By: #### PTISTR, P TT #### [facility] ([facility]) [address] [place] [address] 99510 Potassium [Moles/Vol] 4.6 3.5-5.0 mmol/L Normal 04-03-20 20 [facility] (05436) Comment: Performed By: #### PTISTR, P TT #### [facility] ([facility]) [address] [place] [address] 15184 Sodium [Moles/Vol] 135 133-143 mmol/L Normal 04-03-2020 [facility] nter (09713) Comment: Performed By: #### PTISTR, P TT #### [facility] ([facility]) [address] [place] [address] 53490 Urea nitrogen [Mass/Vol] 20 7-22 mg/dL Normal 04-03 [facility] nter (01694) Comment: Performed By: #### PTISTR, P TT #### [facility] ([facility]) [address] [place] [address] 56780 Urea nitrogen/Creatinine [Mass 20 mg/mg Normal 04-03-2020 [facility] ratio] [facility] (39464) Comment: Performed By: #### PTISTR, P TT #### [facility] ([facility]) [address] [place] [address] 22416 Anion gap [Moles/Vol] 14 7-17 mmol/L Normal 04-03-20 20 [facility] nter (77846) Comment: Performed By: #### PTISTR, P TT #### [facility] ([facility]) [address] [place] [address] 86699 Chloride [Moles/Vol] 102 98-108 mmol/L Normal 0 [facility] nter (01909) Comment: Performed By: #### PTISTR, P TT #### [facility] ([facility]) [address] [place] [address] 91531 CO2 [Moles/Vol] 24 22-30 mmol/L Normal 04-03-2020 [facility] nter (44958) Comment: Performed By: #### PTISTR, P TT #### [facility] ([facility]) [address] [place] [address] 29510 Creatinine [Mass/Vol] 1.03 0.70-1.30 mg/dL Normal 04-03-20 20 [facility] (87519) Comment: Performed By: #### PTISTR, P TT #### [facility] ([facility]) [address] [place] [address] 51447 EST GFR, 60 >=60 mL/min/1.73sqM Normal 04-03-20 20 [facility] (44198) Comment: Performed By: #### PTISTR, P TT #### [facility] ([facility]) [address] [place] [address] 89112 EST GFR,Non 60 >=60 mL/min/1.73sqM Normal 04-03 [facility] (92829) Comment: Performed By: #### PTISTR, P TT #### [facility] ([facility]) [address] [place] [address] 96458 Glucose [Mass/Vol] 135 70-99 mg/dL High 04-03-2020 [facility] nter (87438) Comment: Performed By: #### PTISTR, P TT #### [facility] ([facility]) [address] [place] [address] 01595 Osmolality [Osmolality] 290 278-305 mOsm/kg Normal 2019 [facility] (60984) Comment: Performed By: #### PTISTR, P TT #### [facility] ([facility] [address] [place] [address] 22682 Potassium [Moles/Vol] 4.3 3.5-5.0 mmol/L Normal 04-03-20 [facility] (46225) Comment: Performed By: #### PTISTR, P TT #### [facility] ([facility]) [address] [place] [address] 51092 Sodium [Moles/Vol] 136 133-143 mmol/L Normal 04-03-2020 [facility] nter (42581) Comment: Performed By: #### PTISTR, P TT #### [facility] ([facility]) [address] [place] [address] 23664 Urea nitrogen [Mass/Vol] 18 7-22 mg/dL Normal 04-03 [facility] nter (97453) Comment: Performed By: #### PTISTR, P TT #### [facility] ([facility]) [address] [place] [address] 20309 Urea nitrogen/Creatinine [Mass 17 mg/mg Normal 04-03-2020 [facility] ratio] [facility] (78251) Comment: Performed By: #### PTISTR, P TT #### [facility] ([facility]) [address] [place] [address] 19001 cbc and electronic diff on 2020-04-03 Basophils (Bld) [#/Vol] 0.06 K/uL Normal 2019 [facility] (45243) Comment: Performed By: #### PTISTR, P TT #### [facility] ([facility]) [address] [place] [address] 85925 Basophils/100 WBC (Bld) 0.5 % Normal 2019 [facility] (44834) Comment: Performed By: #### PTISTR, P TT #### [facility] ([facility]) [address] [place] [address] 99411 DIFF STATUS Electronic Differential Normal 03-09 [facility] (00972) Comment: Performed By: #### PTISTR, P TT #### [facility] ([facility]) [address] [place] [address] 81356 Eosinophils (Bld) [#/Vol] 0.43 K/uL Normal 03-09 [facility] (30259) Comment: Performed By: #### PTISTR, P TT #### [facility] ([facility]) [address] [place] [address] 90400 Eosinophils/100 WBC (Bld) 3.5 % Normal 03-09 [facility] nter (71905) Comment: Performed By: #### PTISTR, P TT #### [facility] ([facility]) [address] [place] [address] 36398 Hematocrit (Bld) [Volume 39.6 % Normal 04-03 [facility] fraction] (73275) Comment: Performed By: #### PTISTR, P TT #### [facility] ([facility]) [address] [place] [address] 38908 Hemoglobin (Bld) 12.8 13.4-16.8 g/dL Low 04-03-2020 [facility] [Mass/Vol] [facility] (85064) Comment: Performed By: #### PTISTR, P TT #### [facility] ([facility]) [address] [place] [address] 57907 Immature Grans % 1.0 % Normal 04-03-2020 [facility] (00 000) Comment: Performed By: #### PTISTR, P TT #### [facility] ([facility]) [address] [place] [address] 66567 Immature Grans Absolute 0.12 <=0.08 K/uL High 2019 [facility] nter (98887) Comment: Performed By: #### PTISTR, P TT #### [facility] ([facility]) [address] [place] [address] 88807 Lymphocytes (Bld) [#/Vol] 1.09 K/uL Normal 03-09 [facility] (55100) Comment: Performed By: #### PTISTR, P TT #### [facility] ([facility]) [address] [place] [address] 40984 Lymphocytes/100 WBC (Bld) 8.8 % Normal 03-09 [facility] (93743) Comment: Performed By: #### PTISTR, P TT #### [facility] ([facility]) [address] [place] [address] 75019 MCV (RBC) [Entitic vol] 91.0 fL Normal 2019 [facility] (39622) Comment: Performed By: #### PTISTR, P TT #### [facility] ([facility]) [address] [place] [address] 49248 Mean Cell Hgb 29.4 26.1-33.3 pg Normal 04-03-2020 [facility] nter (98606) Comment: Performed By: #### PTISTR, P TT #### [facility] ([facility]) [address] [place] [address] 59755 Mean Cell Hgb Conc 32.3 31.9-36.5 g/dL Normal 04-03-2020 [facility] nter (25187) Comment: Performed By: #### PTISTR, P TT #### [facility] ([facility]) [address] [place] [address] 09412 Monocytes (Bld) [#/Vol] 1.01 K/uL High 2019 [facility] (29418) Comment: Performed By: #### PTISTR, P TT #### [facility] ([facility]) [address] [place] [address] 75856 Monocytes/100 WBC (Bld) 8.2 % Normal 2019 [facility] (87617) Comment: Performed By: #### PTISTR, P TT #### [facility] ([facility]) [address] [place] [address] 31299 Nucleated RBC (Bld) 0.0 <=0.2 /100 WBC Normal 04-03-2020 [facility] [#/Vol] [facility] (91844) Comment: Performed By: #### PTISTR, P TT #### [facility] ([facility]) [address] [place] [address] 34907 Platelet mean volume (Bld) 11.2 fL Normal [facility] [Entitic vol] (93466 ) Comment: Performed By: #### PTISTR, P TT #### [facility] ([facility]) [address] [place] [address] 79317 Platelets (Bld) [#/Vol] 224 K/uL Normal 2019 [facility] (99168) Comment: Performed By: #### PTISTR, P TT #### [facility] ([facility]) [address] [place] [address] 71893 RBC (Bld) [#/Vol] 13.1 10.9-14.3 % Normal 04-03-2020 O [facility] nter (43936) Comment: Performed By: #### PTISTR, P TT #### [facility] ([facility]) [address] [place] [address] 06652 RBC (Bld) [#/Vol] 4.35 10*6/uL Low 04-03-2020 O [facility] (52371) Comment: Performed By: #### PTISTR, P TT #### [facility] ([facility]) [address] [place] [address] Segs + Bands Auto 78.0 % Normal 04-03-2020 O [facility] (00 000) Comment: Performed By: #### PTISTR, P TT #### [facility] ([facility]) [address] [place] [address] Segs + Bands,Absolute Auto 9.62 1.57-6.19 K/uL High [facility] (77310) Comment: Performed By: #### PTISTR, P TT #### [facility] ([facility]) [address] [place] [address] 98283 WBC (Bld) [#/Vol] 12.33 K/uL High 04-03-2020 O [facility] (84662) Comment: Performed By: #### PTISTR, P TT #### [facility] ([facility]) [address] [place] [address] No panel information on 2020-04-03 Anion gap [Moles/Vol] 17 7 - 17 mmol/L 04-03-20 20 [facility] (85020) Chloride [Moles/Vol] 102 98 - 108 mmol/L 0 [facility] (12300) CO2 [Moles/Vol] 21 22 - 30 mmol/L Low 04-03-2020 [facility] (98665) Creatinine [Mass/Vol] 1.01 0.7 - 1.3 mg/dL 04-03-20 20 [facility] (40951) GFR/1.73 sq >=60 >=60 mL/min/{1.73_ 04-03-2020 [facility] Mickiepredicted MDRD mL/min/1.73 m2} EDICAL CENTER (S/P/Bld) [Vol sqM (4321 0) rate/Area] Glucose [Mass/Vol] 105 70 - 99 mg/dL High 04-03-2020 [facility] (87422) Interpretation and Abnormal 04-03-2020 [facility] review of laboratory [facility] results (18989) Interpretation and Normal 04-03-2020 [facility] review of laboratory [facility] results (45697) Magnesium [Mass/Vol] 2.0 1.6 - 2.6 mg/dL 0 [facility] (02951) Osmolality Calc 288 OTH - OTH 04-03-2020 [facility] [Osmolality] [facility] (72881) Phosphate [Mass/Vol] 4.3 2.2 - 4.6 mg/dL 0 [facility] (03489[facility] Potassium [Moles/Vol] 4.6 3.5 - 5 mmol/L 04-03-20 20 [facility] (56414) Sodium [Moles/Vol] 135 133 - 143 mmol/L 04-03-2020 [facility] (63180) Urea nitrogen 20 7 - 22 mg/dL 04-03-2020 [facility] [Mass/Vol] [facility] (49580) Urea 20 mg/mg 04-03-2020 [facility] nitrogen/Creatinine [facility] [Mass ratio] (22214) Anion gap [Moles/Vol] 14 7 - 17 mmol/L 04-03-20 20 [facility] (28660) Chloride [Moles/Vol] 102 98 - 108 mmol/L 0 [facility] (39306) CO2 [Moles/Vol] 24 22 - 30 mmol/L 04-03-2020 [facility] (03383) Creatinine [Mass/Vol] 1.03 0.7 - 1.3 mg/dL 04-03-20 20 [facility] (87087) GFR/1.73 sq >=60 >=60 mL/min/{1.73_ 04-03-2020 [facility] M.predicted MDRD mL/min/1.73 m2} M EDICAL CENTER (S/P/Bld) [Vol sqM (4321 0) rate/Area] Glucose [Mass/Vol] 135 70 - 99 mg/dL High 04-03-2020 [facility] (07868) Interpretation and Abnormal 04-03-2020 [facility] review of laboratory [facility] results (94758) Interpretation and Normal 04-03-2020 [facility] review of laboratory [facility] results (49827) Magnesium [Mass/Vol] 2.0 1.6 - 2.6 mg/dL 0 [facility] MEDICAL NT (37697) Osmolality Calc 290 OTH - OTH 04-03-2020 [facility] [Osmolality] [facility] (59565) Phosphate [Mass/Vol] 4.2 2.2 - 4.6 mg/dL 0 [facility] (74647) Potassium [Moles/Vol] 4.3 3.5 - 5 mmol/L 04-03-20 20 [facility] (02062) Sodium [Moles/Vol] 136 133 - 143 mmol/L 04-03-2020 [facility] (27919[facility] Urea nitrogen 18 7 - 22 mg/dL 04-03-2020 [facility] [Mass/Vol] [facility] C [facility] (09751) Urea 17 mg/mg 04-03-2020 [facility] nitrogen/Creatinine [facility] [Mass ratio] (50075) Erythrocyte 13.1 10.9 - 14.3 % 04-03-2020 [facility] distribution width M [facility]ICAL CENTER (RBC) [Ratio] (70261 ) Immature granulocytes 0.12 <=0.08 K/uL High 04-03-20 20 [facility] (Bld) [#/Vol] [facility] (62918) Immature 1.0 % 04-03-2020 [facility] granulocytes/100 WBC [facility] (Bld) (39273) MCH (RBC) [Entitic 29.4 26.1 - 33.3 pg 0 [facility] mass] [facility] (17963) MCHC (RBC) [Mass/Vol] 32.3 31.9 - 36.5 g/dL 2019 [facility] (28186) Neutrophils (Bld) 9.62 1.57 - 6.19 K/uL High 04-03-2020 [facility] [#/Vol] MEDICAL CE [facility]TER (48877) Segmented 78.0 % 04-03-2020 [facility] neutrophils/100 WBC [facility] (d) (67133) screen: mrsa/mssa o n 2020-04-02 INR Coag (Bld) Negative Negative {INR} Normal 04-02-2020 [facility] [Relative time] [facility] (06801) Comment: Order Comment: Collect with an ESWAB [...] its performance characteristics determined by the Clinical [facility] at [facility] nt. It has not been cleared or approved by the FDA.The laboratory is [facility] [employer] [employer] [facility] [employer] under CLIA as qualified to perform high-complexity testing. Thi s test is used for clinical purposes. It should not be regarded as investiga tional or for research. Performed By: #### PTISTR, P TT #### [facility] (Dale DIAZ) [address] [place] [address] 14189 Staphylococcus Aureus By Positive Negative Abnormal 04-02 [facility] nter (92132) Comment: Order Comment: Collect with an ESWAB [...] performance characteristics determined by the Clinical M [facility] at [facility] nt. It has not been cleared or approved by the FDA.The laboratory is [facility] under CLIA as qualified to perform high-complexity testing. Thi s test is used for clinical purposes. It should not be regarded as investiga tional or for research. Performed By: #### PTISTR, P TT #### [facility] ([facility] [address] [place] [address] 84182 procalcitonin on 27-03-26 Procalcitonin 0.21 <=0.50 ng/mL Normal 04-02-2020 [facility] nter (02666) Comment: Order Comment: In adult, cri tically [...] Performed By: #### PTISTR, P TT #### [facility] ([facility] [address] [place] [address] 09186 phosphate, inorganic on 2020-04-02 Phosphorous 4.6 2.2-4.6 mg/dL Normal 04-02-2020 [facility] (00 000) Comment: Performed By: #### PTISTR, P TT #### [facility] ([facility] DIAZ) [address] [place] [address] 96433 Phosphorous 3.9 2.2-4.6 mg/dL Normal 04-02-2020 [facility] (00 000) Comment: Performed By: #### PTISTR, P TT #### [facility] ([facility]) [address] [place] [address] 44983 magnesium on 04-02 Magnesium [Mass/Vol] 2.1 mg/dL Normal 0 [facility] (59832) Comment: Performed By: #### PTISTR, P TT #### [facility] ([facility]) [address] [place] [address] 02150 Magnesium [Mass/Vol] 1.9 1.6-2.6 mg/dL Normal 0 [facility] nter (09482) Comment: Performed By: #### PTISTR, P TT #### [facility] ([facility]) [address] [place] [id number] chem 7 (lytes,bun,crea,gluc) on 2020-04-02 Anion gap [Moles/Vol] 16 mmol/L Normal 04-02-20 20 [facility] ([id number]) Comment: Performed By: #### PTISTR, P TT #### [facility] ([facility]) [address] [place] [id number] Chloride [Moles/Vol] 100 mmol/L Normal 0 [facility] ([id number]) Comment: Performed By: #### PTISTR, P TT #### [facility] ([facility]) [address] [place] [address] 75527 CO2 [Moles/Vol] 25 mmol/L Normal 04-02-2020 [facility] ([id number]) Comment: Performed By: #### PTISTR, P TT #### [facility] ([facility]) [address] [place] [address] 69263 Creatinine [Mass/Vol] 1.07 mg/dL Normal 04-02-20 20 [facility] (20511) Comment: Performed By: #### PTISTR, P TT #### [facility] ([facility]) [address] [place] [address] 36240 EST GFR, 60 >=60 mL/min/1.73sqM Normal 04-02-20 20 [facility] (76721) Comment: Performed By: #### PTISTR, P TT #### [facility] ([facility]) [address] [place] [address] 04948 EST GFR,Non 60 >=60 mL/min/1.73sqM Normal 04-02 [facility] (25643) Comment: Performed By: #### PTISTR, P TT #### [facility] ([facility]) [address] [place] [address] 75703 Glucose [Mass/Vol] 85 mg/dL Normal 04-02-2020 [facility] (42313) Comment: Performed By: #### PTISTR, P TT #### [facility] ([facility]) [address] [place] [address] 95787 Osmolality [Osmolality] 289 278-305 mOsm/kg Normal 2019 [facility] (25414) Comment: Performed By: #### PTISTR, P TT #### [facility] ([facility]) [address] [place] [address] 47943 Potassium [Moles/Vol] 4.4 mmol/L Normal 04-02-20 20 [facility] (68349) Comment: Performed By: #### PTISTR, P TT #### [facility] ([facility]) [address] [place] [address] 25205 Sodium [Moles/Vol] 137 mmol/L Normal 04-02-2020 [facility] (53901) Comment: Performed By: #### PTISTR, P TT #### [facility] ([facility]) [address] [place] [address] 84532 Urea nitrogen [Mass/Vol] 18 mg/dL Normal 04-02 [facility] (15450) Comment: Performed By: #### PTISTR, P TT #### [facility] ([facility]) [address] [place] [address] 31266 Urea nitrogen/Creatinine [Mass 17 mg/mg Normal 04-02-2020 [facility] CENTER (43 210) Comment: Performed By: #### PTISTR, P TT #### [facility] ([facility]) [address] [place] [address] 55280 Anion gap [Moles/Vol] 15 7-17 mmol/L Normal 04-02-20 20 [facility] nter (65650) Comment: Performed By: #### PTISTR, P TT #### [facility] ([facility]) [address] [place] [address] 66212 Chloride [Moles/Vol] 101 98-108 mmol/L Normal 0 [facility] nter (26419) Comment: Performed By: #### PTISTR, P TT #### [facility] ([facility]) [address] [place] [address] 18857 CO2 [Moles/Vol] 24 22-30 mmol/L Normal 04-02-2020 [facility] nter (36448) Comment: Performed By: #### PTISTR, P TT #### [facility] ([facility]) [address] [place] [address] 88355 Creatinine [Mass/Vol] 1.10 0.70-1.30 mg/dL Normal 04-02-20 20 [facility] (57614) Comment: Performed By: #### PTISTR, P TT #### [facility] ([facility]) [address] [place] [address] 59213 EST GFR, 60 >=60 mL/min/1.73sqM Normal 04-02-20 20 [facility] (76882) Comment: Performed By: #### PTISTR, P TT #### [facility] ([facility]) [address] [place] [address] 71366 EST GFR,Non 60 >=60 mL/min/1.73sqM Normal 04-02 [facility] (54345) Comment: Performed By: #### PTISTR, P TT #### [facility] ([facility]) [address] [place] [address] 41642 Glucose [Mass/Vol] 101 70-99 mg/dL High 04-02-2020 [facility] nter (05577) Comment: Performed By: #### PTISTR, P TT #### [facility] ([facility]) [address] [place] [address] 85402 Osmolality [Osmolality] 288 278-305 mOsm/kg Normal 2019 [facility] (72618) Comment: Performed By: #### PTISTR, P TT #### [facility] ([facility]) [address] [place] [address] 06831 Potassium [Moles/Vol] 4.2 3.5-5.0 mmol/L Normal 04-02-20 [facility] (42789) Comment: Performed By: #### PTISTR, P TT #### [facility] ([facility]) [address] [place] [address] 23478 Sodium [Moles/Vol] 136 133-143 mmol/L Normal 04-02-2020 [facility] nter (41688) Comment: Performed By: #### PTISTR, P TT #### [facility] ([facility]) [address] [place] [address] 18308 Urea nitrogen [Mass/Vol] 20 7-22 mg/dL Normal 04-02 [facility] nter (26577) Comment: Performed By: #### PTISTR, P TT #### [facility] ([facility]) [address] [place] [address] 55728 Urea nitrogen/Creatinine [Mass 18 mg/mg Normal 04-02-2020 [facility] ratio] [facility] (45583) Comment: Performed By: #### PTISTR, P TT #### [facility] ([facility]) [address] [place] [address] 21335 cbc and electronic diff on 2020-04-02 Basophils (Bld) [#/Vol] 0.04 0.00-0.09 K/uL Normal 2019 [facility] (14160) Comment: Performed By: #### PTISTR, P TT #### [facility] ([facility]) [address] [place] [address] 00255 Basophils/100 WBC (Bld) 0.2 % Normal 2019 [facility] nter (29536) Comment: Performed By: #### PTISTR, P TT #### [facility] ([facility]) [address] [place] [address] 78756 DIFF STATUS Electronic Differential Normal 03-09 [facility] (41395) Comment: Performed By: #### PTISTR, P TT #### [facility] ([facility]) [address] [place] [address] 78404 Eosinophils (Bld) 0.47 0.00-0.48 K/uL Normal 04-02-2020 [facility] [#/Vol] [facility] (80033) Comment: Performed By: #### PTISTR, P TT #### [facility] ([facility]) [address] [place] [address] 63668 Eosinophils/100 WBC (Bld) 3.5 % Normal 03-09 [facility] nter (52328) Comment: Performed By: #### PTISTR, P TT #### [facility] ([facility]) [address] [place] [address] 76139 Hematocrit (Bld) [Volume 39.8 39.6-48.8 % Normal 04-02 [facility] fraction] [facility] (05709) Comment: Performed By: #### PTISTR, P TT #### [facility] ([facility]) [address] [place] [address] 25960 Hemoglobin (Bld) 12.9 13.4-16.8 g/dL Low 04-02-2020 [facility] [Mass/Vol] [facility] dical [facility] (16498) Comment: Performed By: #### PTISTR, P TT #### [facility] ([facility]) [address] [place] [address] 96990 Immature Grans % 1.1 % Normal 04-02-2020 [facility] (00 000) Comment: Performed By: #### PTISTR, P TT #### [facility] ([facility]) [address] [place] [address] 38739 Immature Grans Absolute 0.14 <=0.08 K/uL High 2019 [facility] nter (25619) Comment: Performed By: #### PTISTR, P TT #### [facility] ([facility]) [address] [place] [address] 47756 Lymphocytes (Bld) 1.61 0.83-3.57 K/uL Normal 04-02-2020 [facility] [#/Vol] [facility] (17972) Comment: Performed By: #### PTISTR, P TT #### [facility] ([facility]) [address] [place] [address] 20197 Lymphocytes/100 WBC (Bld) 12.1 % Normal 03-09 [facility] nter (98147) Comment: Performed By: #### PTISTR, P TT #### [facility] ([facility]) [address] [place] [address] 98761 MCV (RBC) [Entitic vol] 90.0 79.0-94.5 fL Normal 2019 [facility] (36779) Comment: Performed By: #### PTISTR, P TT #### [facility] ([facility]) [address] [place] [address] 79204 Mean Cell Hgb 29.2 26.1-33.3 pg Normal 04-02-2020 [facility] nter (77147) Comment: Performed By: #### PTISTR, P TT #### [facility] ([facility]) [address] [place] [address] 58035 Mean Cell Hgb Conc 32.4 31.9-36.5 g/dL Normal 04-02-2020 [facility] nter (56955) Comment: Performed By: #### PTISTR, P TT #### [facility] ([facility]) [address] [place] [address] 18814 Monocytes (Bld) [#/Vol] 1.29 0.24-0.93 K/uL High 2019 [facility] (76410) Comment: Performed By: #### PTISTR, P TT #### [facility] ([facility]) [address] [place] [address] 31409 Monocytes/100 WBC (Bld) 9.7 % Normal 2019 [facility] nter (19361) Comment: Performed By: #### PTISTR, P TT #### [facility] ([facility]) [address] [place] [address] 93445 Nucleated RBC (Bld) 0.0 <=0.2 /100 WBC Normal 04-02-2020 [facility] [#/Vol] [facility] (15164) Comment: Performed By: #### PTISTR, P TT #### [facility] ([facility]) [address] [place] [address] 03056 Platelet mean volume 11.9 8.7-12.3 fL Normal 0 [facility] (Bld) [Entitic vol] [facility] (31759) Comment: Performed By: #### PTISTR, P TT #### [facility] ([facility]) [address] [place] [address] 23074 Platelets (Bld) [#/Vol] 203 146-337 K/uL Normal 2019 [facility] (02922) Comment: Performed By: #### PTISTR, P TT #### [facility] ([facility]) [address] [place] [address] 24138 RBC (Bld) [#/Vol] 4.42 4.38-5.83 M/uL Normal 04-02-2020 O [facility] nter (57362) Comment: Performed By: #### PTISTR, P TT #### [facility] ([facility]) [address] [place] [address] 38312 RBC (Bld) [#/Vol] 13.2 10.9-14.3 % Normal 04-02-2020 O [facility] nter (92223) Comment: Performed By: #### PTISTR, P TT #### [facility] ([facility]) [address] [place] [address] 23421 Segs + Bands Auto 73.4 % Normal 04-02-2020 O [facility] (00 000) Comment: Performed By: #### PTISTR, P TT #### [facility] ([facility]) [address] [place] [address] 49975 Segs + Bands,Absolute Auto 9.78 1.57-6.19 K/uL High [facility] (42061) Comment: Performed By: #### PTISTR, P TT #### [facility] ([facility]) [address] [place] [address] 85246 WBC (Bld) [#/Vol] 13.32 3.73-10.10 K/uL High 04-02-2020 [facility] nter (29614) Comment: Performed By: #### PTISTR, P TT #### [facility] ([facility]) [address] [place] [address] 61226 No panel information on 2020-04-02 INR Coag (Bld) Negative Negative {INR} 04-02-2020 [facility] [Relative time] [facility] (61434) Interpretation Abnormal 04-02-2020 [facility] and review of [facility] laboratory MEDICAL results CENTER (17264) Staphylococcus Positive Negative Abnormal 04-02-2020 [facility] Aureus By Pcr [facility] (15087) This test was 04-02-2020 [facility] performed using a [employer] real time PCR assay. MEDICAL Results should be CE NTER interpreted in (4321 0) conjunction with other clinical and laboratory findings. A positive result does not necessarily indicate the presence of viable organism. This test should not be used as a test of cure. For E-swab specimens, this test was developed and its performance characteristics determined by the Clinical Microbiology Laboratory at [facility]. It has not been cleared or approved by the FDA.The laboratory is regulated under CLIA as qualified to perform high-complexity testing. This test is used for clinical purposes. It should not be regarded as investigational or for research. GFR/1.73 sq >=60 >=60 mL/min/{ 04-02-2020 [facility] M.predicted MDRD mL/min/1.73 1.73_m2} W EXNER (S/P/Bld) [Vol sqM MEDIC AL rate/Area] CENTER (25188) Osmolality Calc 289 OTH - OTH 04-02-2020 [facility] [Osmolality] [facility] (88346) Phosphate 4.6 2.2 - 4.6 mg/dL 04-02-2020 [facility] [Mass/Vol] [facility] (86585) Interpretation Normal 04-02-2020 [facility] and review of [facility] laboratory MEDICAL results CENTER (93965) Procalcitonin 0.21 <=0.50 ng/mL 04-02-2020 [facility] [Mass/Vol] [facility] (80744) In adult, critically 0 [facility] ill ICU [...] 7 - 17 mmol/L 04-02-2020 [facility] [Moles/Vol] [facility] (63012) Chloride 101 98 - 108 mmol/L 04-02-2020 [facility] [Moles/Vol] [facility] ([facility]) CO2 [Moles/Vol] 24 22 - 30 mmol/L 04-02-2020 [facility] ([facility]) Creatinine 1.10 0.7 - 1.3 mg/dL 04-02-2020 [facility] [Mass/Vol] [facility] ([facility]) GFR/1.73 sq >=60 >=60 mL/min/{ 04-02-2020 [facility] M.predicted MDRD mL/min/1.73 1.73_m2} W EXNER (S/P/Bld) [Vol sqM MEDIC AL rate/Area] [place] ([facility]) Glucose 101 70 - 99 mg/dL High 04-02-2020 [facility] [Mass/Vol] [facility] ([facility]) Interpretation Normal 04-02-2020 [facility] and review of [facility] laboratory [facility] results [place] ([facility]) Interpretation Abnormal 04-02-2020 [facility] and review of [facility] laboratory MEDICAL results [place] ([facility]) Magnesium 1.9 1.6 - 2.6 mg/dL 04-02-2020 [facility] [Mass/Vol] [facility] ([facility]) Osmolality Calc 288 OTH - OTH 04-02-2020 [facility] [Osmolality] [facility] ([facility]) Phosphate 3.9 2.2 - 4.6 mg/dL 04-02-2020 [facility] [Mass/Vol] [facility] ([facility]) Potassium 4.2 3.5 - 5 mmol/L 04-02-2020 [facility] [Moles/Vol] [facility] ([facility]) Sodium 136 133 - 143 mmol/L 04-02-2020 [facility] [Moles/Vol] [facility] ([facility]) Urea nitrogen 20 7 - 22 mg/dL 04-02-2020 [facility] [Mass/Vol] [facility] ([facility]) Urea 18 mg/mg 04-02-2020 [facility] nitrogen/Creatini WE XNER ne [Mass ratio] [facility] ([facility]) Basophils (Bld) <0.04 0 - 0.09 10*3/uL 04-02-2020 [facility] [#/Vol] [facility] ([facility]) Basophils/100 WBC 0.2 % 04-02-2020 O [facility] (Bld) [facility] ([facility]) DIFF STATUS Electronic 04-02-2020 [facility] Differential [facility] ([facility]) Eosinophils (Bld) 0.47 0 - 0.48 K/uL 04-02-2020 O [facility] [#/Vol] [facility] ([id number]) Eosinophils/100 3.5 % 04-02-2020 [facility] WBC (Bld) [facility] ([facility]) Erythrocyte 13.2 10.9 - 14.3 % 04-02-2020 [facility] distribution [facility] width (RBC) MEDICAL [Ratio] [place] ([facility]) Hematocrit (Bld) 39.8 39.6 - 48.8 % 04-02-2020 [facility] [Volume fraction] [facility] ([facility]) Hemoglobin (Bld) 12.9 13.4 - 16.8 g/dL Low 04-02-2020 [facility] [Mass/Vol] [facility] ([facility]) Immature 0.14 <=0.08 K/uL High 04-02-2020 [facility] granulocytes [facility] (Bld) [#/Vol] [facility] ([facility]) Immature 1.1 % 04-02-2020 [facility] granulocytes/100 [facility] NER WBC (Bld) [facility] ([facility]) Interpretation Abnormal 04-02-2020 [facility] and review of [facility] laboratory MEDICAL results [place] ([facility]) Lymphocytes (Bld) 1.61 0.83 - 3.57 K/uL 04-02-2020 [facility] [#/Vol] [facility] ([facility]) Lymphocytes/100 12.1 % 04-02-2020 [facility] WBC (Bld) [facility] ([facility]) MCH (RBC) 29.2 26.1 - 33.3 pg 04-02-2020 [facility] [Entitic mass] [facility] ([facility]) MCHC (RBC) 32.4 31.9 - 36.5 g/dL 04-02-2020 [facility] [Mass/Vol] [facility] ([facility]) MCV (RBC) 90.0 79 - 94.5 fL 04-02-2020 [facility] [Entitic vol] [facility] ([facility]) Monocytes (Bld) 1.29 0.24 - 0.93 K/uL High 04-02-2020 O [facility] [#/Vol] [facility] (15843) Monocytes/100 WBC 9.7 % 04-02-2020 O [facility] (Bld) [facility] (86776) Neutrophils (Bld) 9.78 1.57 - 6.19 K/uL High 04-02-2020 [facility] [#/Vol] [facility] (60553) Nucleated RBC/100 0.0 <=0.2 /100 % 04-02-2020 [facility] WBC (Bld) [Ratio] WBC [facility] (05513) Platelet mean 11.9 8.7 - 12.3 fL 04-02-2020 [facility] volume (Bld) [facility] [Entitic vol] [facility] (02304) Platelets (Bld) 203 146 - 337 K/uL 04-02-2020 [facility] [#/Vol] [facility] (17247) RBC (Bld) [#/Vol] 4.42 OTH - OTH 10*6/uL 04-02-2020 O DAWSON [facility] (12659) Segmented 73.4 % 04-02-2020 [facility] neutrophils/100 [facility] WBC (Bld) [facility] (61496) WBC (Bld) [#/Vol] 13.32 3.73 - 10.1 K/uL High 04-02-2020 [facility] (89493) xr chest ap portable on 2020-04-01 XR CHEST AP EXAM: XR CHEST AP PORTABLE, 04/01/2020 11:59 AM Normal 04-01-2020 [facility] PORTABLE COMPARISON: Chest CT March 26, 2020 [facility] CLINICAL INDICATIONS: cough, shortness of breath [facility] RELEVANT CLINICAL HISTORY: ([id number]) FINDINGS: (Limited by rotation) Life Support Devices: [...] 2020-04-01 Phosphorous 4.0 2.2-4.6 mg/dL Normal 04-01-2020 [facility] (00 000) Comment: Performed By: #### PTISTR, P TT #### [facility] ([facility] DIAZ) [address] [place] [address] 90226 magnesium on 04-01 Magnesium [Mass/Vol] 1.9 1.6-2.6 mg/dL Normal 0 [facility] nter (78856) Comment: Performed By: #### CKB, C7ED , HFP, ACTMJ, SALIJ, CA, MGO, TSH #### [facility] ([facility]ale JOSE) [address] [place] [address] 28138 chem 7 (lytes,bun,crea,gluc) on 2020-04-01 Anion gap [Moles/Vol] 14 7-17 mmol/L Normal 04-01-20 20 [facility] nter (43268) Comment: Performed By: #### CKB, C7ED , HFP, ACTMJ, SALIJ, CA, MGO, TSH #### [facility] ([facility] JO[facility]) [address] [place] [address] 12131 Chloride [Moles/Vol] 106 98-108 mmol/L Normal 0 [facility] nter (35304) Comment: Performed By: #### CKB, C7ED , HFP, ACTMJ, SALIJ, CA, MGO, TSH #### [facility] ([facility] JO[facility]) [address] [place] [address] 21040 CO2 [Moles/Vol] 24 22-30 mmol/L Normal 04-01-2020 [facility] nter (60978) Comment: Performed By: #### CKB, C7ED , HFP, ACTMJ, SALIJ, CA, MGO, TSH #### [facility] ([facility] JOSE) [address] [place] [address] 73605 Creatinine [Mass/Vol] 1.21 0.70-1.30 mg/dL Normal 04-01-20 [facility] (88473) Comment: Performed By: #### CKB, C7ED , HFP, ACTMJ, SALIJ, CA, MGO, TSH #### [facility] ([facility] JOSE) [address] [place] [address] 89746 EST GFR, 60 >=60 mL/min/1.73sqM Normal 04-01-20 [facility] (50073) Comment: Performed By: #### CKB, C7ED , HFP, ACTMJ, SALIJ, CA, MGO, TSH #### [facility] ([facility] JO[facility]) [address] [place] [address] 57229 EST GFR,Non 60 >=60 mL/min/1.73sqM Normal 04-01 [facility] (56301) Comment: Performed By: #### CKB, C7ED , HFP, ACTMJ, SALIJ, CA, MGO, TSH #### [facility] ([facility]) [address] [place] [address] 84598 Glucose [Mass/Vol] 129 70-99 mg/dL High 04-01-2020 [facility] nter (41000) Comment: Performed By: #### CKB, C7ED , HFP, ACTMJ, SALIJ, CA, MGO, TSH #### [facility] ([facility] JOSE) [address] [place] [address] 61450 Osmolality [Osmolality] 297 278-305 mOsm/kg Normal 2019 [facility] (26530) Comment: Performed By: #### CKB, C7ED , HFP, ACTMJ, SALIJ, CA, MGO, TSH #### [facility] ([facility]) [address] [place] [address] 01545 Potassium [Moles/Vol] 3.9 3.5-5.0 mmol/L Normal 04-01-20 20 [facility] (15964) Comment: Performed By: #### CKB, C7ED , HFP, ACTMJ, SALIJ, CA, MGO, TSH #### [facility] ( JOE) [address] [place] [address] 64015 Sodium [Moles/Vol] 140 133-143 mmol/L Normal 04-01-2020 [facility] nter (33735) Comment: Performed By: #### CKB, C7ED , HFP, ACTMJ, SALIJ, CA, MGO, TSH #### [facility] ([facility] JOSE) [address] [place] [address] 83435 Urea nitrogen [Mass/Vol] 21 7-22 mg/dL Normal 04-01 [facility] nter (03209) Comment: Performed By: #### CKB, C7ED , HFP, ACTMJ, SALIJ, CA, MGO, TSH #### [facility] ([facility] JOSE) [address] [place] [address] 60509 Urea nitrogen/Creatinine [Mass 17 mg/mg Normal 04-01-2020 [facility] ratio] [facility] ([id number]) Comment: Performed By: #### CKB, C7ED , HFP, ACTMJ, SALIJ, CA, MGO, TSH #### [facility] ([place] [facility]SE) [address] [place] [id number] cbc and electronic diff on 2020-04-01 Basophils (Bld) [#/Vol] 0.04 0.00-0.09 K/uL Normal 2019 [facility] ([id number]) Comment: Performed By: #### CKB, C7ED , HFP, ACTMJ, SALIJ, CA, MGO, TSH #### [facility] ([facility] [address] [place] [address] 45974 Basophils/100 WBC (Bld) 0.2 % Normal 2019 [facility] nter (82667) Comment: Performed By: #### CKB, C7ED , HFP, ACTMJ, SALIJ, CA, MGO, TSH #### U [facility] (D EFAULT) [address] [place] [address] 54872 DIFF STATUS Electronic Differential Normal 03-09 [facility] (92088) Comment: Performed By: #### CKB, C7ED , HFP, ACTMJ, SALIJ, CA, MGO, TSH #### U [facility] ([facility]) [address] [place] [address] 65912 Eosinophils (Bld) 0.47 0.00-0.48 K/uL Normal 04-01-2020 O [facility] [#/Vol] [facility] (88215) Comment: Performed By: #### CKB, C7ED , HFP, ACTMJ, SALIJ, CA, MGO, TSH #### U [facility] ([facility]) [address] [place] [address] 64555 Eosinophils/100 WBC (Bld) 3.6 % Normal 03-09 [facility] nter (36951) Comment: Performed By: #### CKB, C7ED , HFP, ACTMJ, SALIJ, CA, MGO, TSH #### [facility] ([facility]) [address] [place] [address] 30004 Hematocrit (Bld) [Volume 38.0 39.6-48.8 % Low 04-01 [facility] fraction] [facility] (47422) Comment: Performed By: #### CKB, C7ED , HFP, ACTMJ, SALIJ, CA, MGO, TSH #### U [facility] ([facility] [address] [place] [address] 41888 Hemoglobin (Bld) 12.1 13.4-16.8 g/dL Low 04-01-2020 [facility] [Mass/Vol] [facility] (62104) Comment: Performed By: #### CKB, C7ED , HFP, ACTMJ, SALIJ, CA, MGO, TSH #### U [facility] ([facility]) [address] [place] [address] 07856 Immature Grans % 1.2 % Normal 04-01-2020 [facility] (00 000) Comment: Performed By: #### CKB, C7ED , HFP, ACTMJ, SALIJ, CA, MGO, TSH #### U [facility] (D EFAULT) [address] [place] [address] 65945 Immature Grans Absolute 0.16 <=0.08 K/uL High 2019 [facility] nter (45356) Comment: Performed By: #### CKB, C7ED , HFP, ACTMJ, SALIJ, CA, MGO, TSH #### U [facility] (Dale EFJOSE) [address] [place] [address] 26047 Lymphocytes (Bld) 1.42 0.83-3.57 K/uL Normal 04-01-2020 [facility] [#/Vol] [facility] (24504) Comment: Performed By: #### CKB, C7ED , HFP, ACTMJ, SALIJ, CA, MGO, TSH #### U [facility] (Dale EFAULT) [address] [place] [address] 81941 Lymphocytes/100 WBC (Bld) 11.0 % Normal 03-09 [facility] nter (87734) Comment: Performed By: #### CKB, C7ED , HFP, ACTMJ, SALIJ, CA, MGO, TSH #### U [facility] (Dale EFAULT) [address] [place] [address] 26004 MCV (RBC) [Entitic vol] 91.1 79.0-94.5 fL Normal 2019 [facility] (02771) Comment: Performed By: #### CKB, C7ED , HFP, ACTMJ, SALIJ, CA, MGO, TSH #### U [facility] (D EFAULT) [address] [place] [address] 87761 Mean Cell Hgb 29.0 26.1-33.3 pg Normal 04-01-2020 [facility] (56769) Comment: Performed By: #### CKB, C7ED , HFP, ACTMJ, SALIJ, CA, MGO, TSH #### U [facility] ([facility]) [address] [place] [address] 74125 Mean Cell Hgb Conc 31.8 31.9-36.5 g/dL Low 04-01-2020 [facility] nter (53862) Comment: Performed By: #### CKB, C7ED , HFP, ACTMJ, SALIJ, CA, MGO, TSH #### U [facility] (Dale JOSE) [address] [place] [address] 80800 Monocytes (Bld) [#/Vol] 1.03 0.24-0.93 K/uL High 2019 [facility] (76722) Comment: Performed By: #### CKB, C7ED , HFP, ACTMJ, SALIJ, CA, MGO, TSH #### [facility] ([facility]) [address] [place] [address] 34305 Monocytes/100 WBC (Bld) 8.0 % Normal 2019 [facility] nter (58998) Comment: Performed By: #### CKB, C7ED , HFP, ACTMJ, SALIJ, CA, MGO, TSH #### U [facility] ([facility]) [address] [place] [address] 31231 Nucleated RBC (Bld) 0.0 <=0.2 /100 WBC Normal 04-01-2020 [facility] [#/Vol] [facility] (84535) Comment: Performed By: #### CKB, C7ED , HFP, ACTMJ, SALIJ, CA, MGO, TSH #### U [facility] ([facility]) [address] [place] [address] 84036 Platelet mean volume 11.1 8.7-12.3 fL Normal 0 [facility] (Bld) [Entitic vol] [facility] (45281) Comment: Performed By: #### CKB, C7ED , HFP, ACTMJ, SALIJ, CA, MGO, TSH #### [facility] (Dale EFAULT) [address] [place] [address] 90392 Platelets (Bld) [#/Vol] 198 146-337 K/uL Normal 2019 [facility] (07279) Comment: Performed By: #### CKB, C7ED , HFP, ACTMJ, SALIJ, CA, MGO, TSH #### [facility] (Dale AULT) [address] [place] [address] 55101 RBC (Bld) [#/Vol] 4.17 4.38-5.83 M/uL Low 04-01-2020 O [facility] nter (95609) Comment: Performed By: #### CKB, C7ED , HFP, ACTMJ, SALIJ, CA, MGO, TSH #### [facility] ([facility]ale JOSE) [address] [place] [address] 23666 RBC (Bld) [#/Vol] 13.4 10.9-14.3 % Normal 04-01-2020 O [facility] nter (37277) Comment: Performed By: #### CKB, C7ED , HFP, ACTMJ, SALIJ, CA, MGO, TSH #### [facility] (Dale DIAZ) [address] [place] [address] 68007 Segs + Bands Auto 76.0 % Normal 04-01-2020 O [facility] (00 000) Comment: Performed By: #### CKB, C7ED , HFP, ACTMJ, SALIJ, CA, MGO, TSH #### [facility] ([facility]ale DIAZ) [address] [place] [address] 63794 Segs + Bands,Absolute Auto 9.79 1.57-6.19 K/uL High [facility] (58776) Comment: Performed By: #### CKB, C7ED , HFP, ACTMJ, SALIJ, CA, MGO, TSH #### [facility] (Dale DIAZ) [address] [place] [address] WBC (Bld) [#/Vol] 12.89 3.73-10.10 K/uL High 04-01-2020 [facility] nter (55798) Comment: Performed By: #### CKB, C7ED , HFP, ACTMJ, SALIJ, CA, MGO, TSH #### [facility] (aDle DIAZ) [address] [place] [address] No panel information on 2020-04-01 Anion gap 16 7 - 17 mmol/L 04-01-2020 [facility] [Moles/Vol] [facility] (16121) Chloride 104 98 - 108 mmol/L 04-01-2020 [facility] [Moles/Vol] [facility] (36584) CO2 [Moles/Vol] 24 22 - 30 mmol/L 04-01-2020 [facility] (30272) Creatinine 0.92 0.7 - mg/dL 04-01-2020 [facility] [Mass/Vol] 1.3 [facility] (36513) GFR/1.73 sq >=60 >=60 mL/min/{1.7 04-01-2020 [facility] MDRD mL/min/1 3_m2} MED ICAL (S/P/Bld) [Vol .73sqM CENTE R rate/Area] (42118) Glucose [Mass/Vol] 119 70 - 99 mg/dL High 04-01-2020 [facility] (41188) Interpretation and Abnormal 04-01-2020 [facility] review of MEDICAL laboratory results C ENTER (89662) Interpretation and Normal 04-01-2020 [facility] review of MEDICAL laboratory results [facility] (10552) Magnesium 2.0 1.6 - mg/dL 04-01-2020 [facility] [Mass/Vol] 2.6 [facility] (84613) Osmolality Calc 297 OTH - 04-01-2020 [facility] [Osmolality] [facility] (90279) Phosphate 3.8 2.2 - mg/dL 04-01-2020 [facility] [Mass/Vol] 4.6 [facility] (69688) Potassium 4.8 3.5 - 5 mmol/L 04-01-2020 [facility] [Moles/Vol] [facility] (99149) Sodium [Moles/Vol] 139 133 - mmol/L 04-01-2020 [facility] 143 [facility] (07485) Urea nitrogen 21 7 - 22 mg/dL 04-01-2020 [facility] [Mass/Vol] [facility] (66426) Urea 23 mg/mg 04-01-2020 [facility] nitrogen/Creatinine MEDICAL [Mass ratio] CENTER (99432) IMPRESSION: Hazy 04-01-2020 [facility] bilateral basilar ME DICAL opacities may CENTER represent an (40558) infectious process in the appropriate clinical setting. : XR CHEST AP 04-01-2020 [facility] PORTABLE, 04/01/2020 MEDICAL 11:59 AM COMPARISON: CENTER Chest CT March 26 (0 0595) 2019 CLINICAL INDICATIONS: cough, shortness of breath [...] MEDICAL COMPARISON: Chest CT March 26, 2020 [place] (24875) CLINICAL INDICATIONS: cough, shortness of breath RELEVANT [...] 17 mmol/L 04-01-2020 [facility] [Moles/Vol] [facility] (78029) Chloride 106 98 - 108 mmol/L 04-01-2020 [facility] [Moles/Vol] [facility] (33562) CO2 [Moles/Vol] 24 22 - 30 mmol/L 04-01-2020 [facility] (96185) Creatinine 1.21 0.7 - mg/dL 04-01-2020 [facility] [Mass/Vol] 1.3 [facility] (84129) GFR/1.73 sq >=60 >=60 mL/min/{1.7 04-01-2020 [facility] MCielopredicted MDRD mL/min/1 3_m2} MED ICAL (S/P/Bld) [Vol .73sqM CENTE R rate/Area] ([facility]) Glucose [Mass/Vol] 129 70 - 99 mg/dL High 04-01-2020 [facility] ([facility]) Interpretation and Normal 04-01-2020 [facility] review of MEDICAL laboratory results [facility] (14664) Interpretation and Abnormal 04-01-2020 [facility] review of MEDICAL laboratory results [facility] (43947) Magnesium 1.9 1.6 - mg/dL 04-01-2020 [facility] [Mass/Vol] 2.6 [facility] (59034) Osmolality Calc 297 OTH - 04-01-2020 [facility] [Osmolality] [facility] (82711) Phosphate 4.0 2.2 - mg/dL 04-01-2020 [facility] [Mass/Vol] 4.6 [facility] (95721) Potassium 3.9 3.5 - 5 mmol/L 04-01-2020 [facility] [Moles/Vol] [facility] (22349) Sodium [Moles/Vol] 140 133 - mmol/L 04-01-2020 [facility] [address] [place] [address] (13146) Urea nitrogen 21 7 - 22 mg/dL 04-01-2020 [facility] [Mass/Vol] [facility] (77779) Urea 17 mg/mg 04-01-2020 [facility] nitrogen/Creatinine MEDICAL [Mass ratio] [place] ([facility]) Basophils (Bld) <0.04 0 - 0.09 10*3/uL 04-01-2020 [facility] [#/Vol] [facility] ([facility]) Basophils/100 WBC 0.2 % 04-01-2020 [facility] (Bld) [facility] ([facility]) DIFF STATUS Electronic 04-01-2020 [facility] Differential [facility] ([facility]) Eosinophils (Bld) 0.47 0 - 0.48 K/uL 04-01-2020 [facility] [#/Vol] [facility] ([facility]) Eosinophils/100 WBC 3.6 % 04-01-2020 [facility] (Bld) [facility] ([facility]) Erythrocyte 13.4 10.9 - % 04-01-2020 [facility] distribution width 14.3 M EDICAL (RBC) [Ratio] [place] ([facility]) Hematocrit (Bld) 38.0 39.6 - % Low 04-01-2020 [facility] [Volume fraction] 48.8 ME DICAL [place] ([facility]) Hemoglobin (Bld) 12.1 13.4 - g/dL Low 04-01-2020 [facility] [Mass/Vol] 16.8 [facility] ([facility]) Immature 0.16 <=0.08 K/uL High 04-01-2020 [facility] granulocytes (Bld) M EDICAL [#/Vol] [place] ([facility]) Immature 1.2 % 04-01-2020 [facility] granulocytes/100 MED ICAL WBC (Bld) [place] ([facility]) Interpretation and Abnormal 04-01-2020 [facility] review of MEDICAL laboratory results C ENTER ([facility]) Lymphocytes (Bld) 1.42 0.83 - K/uL 04-01-2020 [facility] [#/Vol] 3.57 [facility] ([facility]) Lymphocytes/100 WBC 11.0 % 04-01-2020 [facility] (Bld) [facility] ([facility]) MCH (RBC) [Entitic 29.0 26.1 - pg 04-01-2020 [facility] mass] 33.3 [facility] ([facility]) MCHC (RBC) 31.8 31.9 - g/dL Low 04-01-2020 [facility] [Mass/Vol] 36.5 [facility] (82743) MCV (RBC) [Entitic 91.1 79 - fL 04-01-2020 [facility] vol] 94.5 [facility] (50350) Monocytes (Bld) 1.03 0.24 - K/uL High 04-01-2020 [facility] [#/Vol] 0.93 [facility] (80079) Monocytes/100 WBC 8.0 % 04-01-2020 [facility] (Bld) [facility] (24706) Neutrophils (Bld) 9.79 1.57 - K/uL High 04-01-2020 [facility] [#/Vol] 6.19 [facility] (22279) Nucleated RBC/100 0.0 <=0.2 % 04-01-2020 [facility] WBC (Bld) [Ratio] /100 WBC FL DICAL [place] (04323) Platelet mean 11.1 8.7 - fL 04-01-2020 [facility] volume (Bld) 12.3 [facility] [Entitic vol] [place] (72109) Platelets (Bld) 198 146 - K/uL 04-01-2020 [facility] [#/Vol] 337 [facility] (19897) RBC (Bld) [#/Vol] 4.17 OTH - 10*6/uL Low 04-01-2020 [facility] (34429) Segmented 76.0 % 04-01-2020 [facility] neutrophils/100 WBC [facility] (Bld) [place] (07374) WBC (Bld) [#/Vol] 12.89 3.73 - K/uL High 04-01-2020 [facility] 10.1 [facility] (99182) phosphate, inorganic on 2020-03-31 Phosphorous 3.5 2.2-4.6 mg/dL Normal 03-31-2020 [facility] (00 000) Comment: Performed By: #### CKB, C7ED , HFP, ACTMJ, SALIJ, CA, MGO, TSH #### [facility] ([place] DIAZ) [address] [address] Phosphorous 3.8 2.2-4.6 mg/dL Normal 03-31-2020 [facility] (00 000) Comment: Performed By: #### CKB, C7ED , HFP, ACTMJ, SALIJ, CA, MGO, TSH #### U [facility] ([place]ale DIAZ) [address] [place] [address] 82356 magnesium on 03-31 Magnesium [Mass/Vol] 1.8 1.6-2.6 mg/dL Normal 0 [facility] nter (55059) Comment: Performed By: #### CKB, C7ED , HFP, ACTMJ, SALIJ, CA, MGO, TSH #### [facility] ([facility] [address] [place] [address] 00118 Magnesium [Mass/Vol] 1.9 1.6-2.6 mg/dL Normal 0 [facility] nter (61439) Comment: Performed By: #### CKB, C7ED , HFP, ACTMJ, SALIJ, CA, MGO, TSH #### [facility] (Dale DIAZ) [address] [place] [address] 21734 chem 7 (lytes,bun,crea,gluc) on 2020-03-31 Anion gap [Moles/Vol] 13 7-17 mmol/L Normal 03-31-20 20 [facility] nter (46827) Comment: Performed By: #### CKB, C7ED , HFP, ACTMJ, SALIJ, CA, MGO, TSH #### U [facility] (Dale DIAZ) [address] [place] [address] 17566 Chloride [Moles/Vol] 103 98-108 mmol/L Normal 0 [facility] nter (69088) Comment: Performed By: #### CKB, C7ED , HFP, ACTMJ, SALIJ, CA, MGO, TSH #### U [facility] ([facility]ale DIAZ) [address] [place] [address] 42995 CO2 [Moles/Vol] 28 22-30 mmol/L Normal 03-31-2020 [facility] nter (22182) Comment: Performed By: #### CKB, C7ED , HFP, ACTMJ, SALIJ, CA, MGO, TSH #### U [facility] (Dale JOSE) [address] [place] [address] 90286 Creatinine [Mass/Vol] 1.08 0.70-1.30 mg/dL Normal 03-31-20 20 [facility] (35336) Comment: Performed By: #### CKB, C7ED , HFP, ACTMJ, SALIJ, CA, MGO, TSH #### [facility] (Dale JOSE) [address] [place] [address] 86183 EST GFR, 60 >=60 mL/min/1.73sqM Normal 03-31-20 20 [facility] (87518) Comment: Performed By: #### CKB, C7ED , HFP, ACTMJ, SALIJ, CA, MGO, TSH #### U [facility] ([place] JOSE) [address] [place] [address] 50955 EST GFR,Non 60 >=60 mL/min/1.73sqM Normal 03-31 [facility] (90331) Comment: Performed By: #### CKB, C7ED , HFP, ACTMJ, SALIJ, CA, MGO, TSH #### U [facility] ([facility]ale JOSE) [address] [place] [address] 70584 Glucose [Mass/Vol] 105 70-99 mg/dL High 03-31-2020 [facility] nter (93891) Comment: Performed By: #### CKB, C7ED , HFP, ACTMJ, SALIJ, CA, MGO, TSH #### U [facility] ([facility] [address] [place] [address] 72399 Osmolality [Osmolality] 297 278-305 mOsm/kg Normal 2019 [facility] (30255) Comment: Performed By: #### CKB, C7ED , HFP, ACTMJ, SALIJ, CA, MGO, TSH #### [facility] ([facility] [address] [place] [address] 45047 Potassium [Moles/Vol] 4.1 3.5-5.0 mmol/L Normal 03-31-20 [facility] (60479) Comment: Performed By: #### CKB, C7ED , HFP, ACTMJ, SALIJ, CA, MGO, TSH #### [facility] (Dale JOSE) [address] [place] [address] 80183 Sodium [Moles/Vol] 140 133-143 mmol/L Normal 03-31-2020 [facility] nter (90211) Comment: Performed By: #### CKB, C7ED , HFP, ACTMJ, SALIJ, CA, MGO, TSH #### [facility] (Dale JOSE) [address] [place] [address] 64403 Urea nitrogen [Mass/Vol] 22 7-22 mg/dL Normal 03-31 [facility] nter (86416) Comment: Performed By: #### CKB, C7ED , HFP, ACTMJ, SALIJ, CA, MGO, TSH #### [facility] (Dale JOSE) [address] [place] [address] 60105 Urea nitrogen/Creatinine [Mass 20 mg/mg Normal 03-31-2020 [facility] ratio] [facility] (22420) Comment: Performed By: #### CKB, C7ED , HFP, ACTMJ, SALIJ, CA, MGO, TSH #### [facility] ([facility]) [address] [place] [address] 37042 Anion gap [Moles/Vol] 13 7-17 mmol/L Normal 03-31-20 [facility] nter (37436) Comment: Performed By: #### CKB, C7ED , HFP, ACTMJ, SALIJ, CA, MGO, TSH #### [facility] ([facility]ale [facility]) [address] [place] [address] 13367 Chloride [Moles/Vol] 106 98-108 mmol/L Normal 0 [facility] nter (79817) Comment: Performed By: #### CKB, C7ED , HFP, ACTMJ, SALIJ, CA, MGO, TSH #### [facility] ([facility] [address] [place] [address] 53311 CO2 [Moles/Vol] 25 22-30 mmol/L Normal 03-31-[facility] (34259[facility] Comment: Performed By: #### CKB, C7ED , HFP, ACTMJ, SALIJ, CA, MGO, TSH #### [facility] ([facility]) [address] [place] [address] 13245 Creatinine [Mass/Vol] 1.02 0.70-1.30 mg/dL Normal 03-31-20 20 [facility] (12574) Comment: Performed By: #### CKB, C7ED , HFP, ACTMJ, SALIJ, CA, MGO, TSH #### [facility] ([facility]) [address] [place] [address] 28259 EST GFR, 60 >=60 mL/min/1.73sqM Normal 03-31-20 20 [facility] (37307) Comment: Performed By: #### CKB, C7ED , HFP, ACTMJ, SALIJ, CA, MGO, TSH #### [facility] ([facility]) [address] [place] [address] 88911 EST GFR,Non 60 >=60 mL/min/1.73sqM Normal 03-31 [facility] (96719) Comment: Performed By: #### CKB, C7ED , HFP, ACTMJ, SALIJ, CA, MGO, TSH #### [facility] (Dale JOSE) [address] [place] [address] 51107 Glucose [Mass/Vol] 117 70-99 mg/dL High 03-31-2020 [facility] nter (59597) Comment: Performed By: #### CKB, C7ED , HFP, ACTMJ, SALIJ, CA, MGO, TSH #### [facility] (Dale DIAZ) [address] [place] [address] 25726 Osmolality [Osmolality] 298 278-305 mOsm/kg Normal 2019 [facility] (39047) Comment: Performed By: #### CKB, C7ED , HFP, ACTMJ, SALIJ, CA, MGO, TSH #### [facility] ([facility]IA[facility]) [address] [place] [address] 68223 Potassium [Moles/Vol] 3.9 3.5-5.0 mmol/L Normal 03-31-20 [facility] (44112) Comment: Performed By: #### CKB, C7ED , HFP, ACTMJ, SALIJ, CA, MGO, TSH #### [facility] ([facility] DIAZ) [address] [place] [address] 72730 Sodium [Moles/Vol] 140 133-143 mmol/L Normal 03-31-2020 [facility] nter (59392) Comment: Performed By: #### CKB, C7ED , HFP, ACTMJ, SALIJ, CA, MGO, TSH #### [facility] ([facility] DIAZ) [address] [place] [address] 68913 Urea nitrogen [Mass/Vol] 24 7-22 mg/dL High 03-31 [facility] nter (53198) Comment: Performed By: #### CKB, C7ED , HFP, ACTMJ, SALIJ, CA, MGO, TSH #### [facility] (Dale JOSE) [address] [place] [address] 02553 Urea nitrogen/Creatinine [Mass 24 mg/mg Normal 03-31-2020 [facility] ratio] [facility] (43520) Comment: Performed By: #### CKB, C7ED , HFP, ACTMJ, SALIJ, CA, MGO, TSH #### [facility] ([facility]) [address] [place] [address]45 cbc and electronic diff on 2020-03-31 Basophils (Bld) [#/Vol] 0.04 0.00-0.09 K/uL Normal 2019 [facility] ([id number]) Comment: Performed By: #### CKB, C7ED , HFP, ACTMJ, SALIJ, CA, MGO, TSH #### [facility] ([facility]) [address] [place] [id number] Basophils/100 WBC (Bld) 0.2 % Normal 2019 [facility] nter ([id number]) Comment: Performed By: #### CKB, C7ED , HFP, ACTMJ, SALIJ, CA, MGO, TSH #### [facility] ([facility]) [address] [place] [phone] DIFF STATUS Electronic Differential Normal 03-09 [facility] ([id number]) Comment: Performed By: #### CKB, C7ED , HFP, ACTMJ, SALIJ, CA, MGO, TSH #### [facility] ([facility]) [address] [place] [phone] Eosinophils (Bld) 0.46 0.00-0.48 K/uL Normal 03-31-2020 [facility] [#/Vol] [facility] ([id number]) Comment: Performed By: #### CKB, C7ED , HFP, ACTMJ, SALIJ, CA, MGO, TSH #### [facility] ([facility]) [address] [place] [address]330 Eosinophils/100 WBC (Bld) 3.9 % Normal 03-09 [facility] nter ([id number]) Comment: Performed By: #### CKB, C7ED , HFP, ACTMJ, SALIJ, CA, MGO, TSH #### [facility] ([facility]) [address] [place] [address] 66936 Hematocrit (Bld) [Volume 39.2 39.6-48.8 % Low 03-31 [facility] fraction] [facility] ([id number]) Comment: Performed By: #### CKB, C7ED , HFP, ACTMJ, SALIJ, CA, MGO, TSH #### U [facility] ([facility]) [address] [place] [address] 72695 Hemoglobin (Bld) 12.8 13.4-16.8 g/dL Low 03-31-2020 [facility] [Mass/Vol] [facility] (95229) Comment: Performed By: #### CKB, C7ED , HFP, ACTMJ, SALIJ, CA, MGO, TSH #### U [facility] ([facility]) [address] [place] [address] 23601 Immature Grans % 1.3 % Normal 03-31-2020 [facility] (00 000) Comment: Performed By: #### CKB, C7ED , HFP, ACTMJ, SALIJ, CA, MGO, TSH #### U [facility] ([facility]) [address] [place] [address] 30401 Immature Grans Absolute 0.15 <=0.08 K/uL High 2019 [facility] nter (91124) Comment: Performed By: #### CKB, C7ED , HFP, ACTMJ, SALIJ, CA, MGO, TSH #### U [facility] ([facility]) [address] [place] [address] 67600 Lymphocytes (Bld) 1.35 0.83-3.57 K/uL Normal 03-31-2020 O [facility] [#/Vol] [facility] (33317) Comment: Performed By: #### CKB, C7ED , HFP, ACTMJ, SALIJ, CA, MGO, TSH #### U [facility] ([facility]) [address] [place] [address] 46161 Lymphocytes/100 WBC (Bld) 11.3 % Normal 03-09 [facility] nter (74680) Comment: Performed By: #### CKB, C7ED , HFP, ACTMJ, SALIJ, CA, MGO, TSH #### [facility] ([facility]) [address] [place] [address] 60523 MCV (RBC) [Entitic vol] 91.0 79.0-94.5 fL Normal 2019 [facility] (83854) Comment: Performed By: #### CKB, C7ED , HFP, ACTMJ, SALIJ, CA, MGO, TSH #### [facility] ([facility]) [address] [place] [address] 66912 Mean Cell Hgb 29.7 26.1-33.3 pg Normal 03-31-2020 [facility] nter (18095) Comment: Performed By: #### CKB, C7ED , HFP, ACTMJ, SALIJ, CA, MGO, TSH #### [facility] ([facility]) [address] [place] [address] 24800 Mean Cell Hgb Conc 32.7 31.9-36.5 g/dL Normal 03-31-2020 [facility] nter (77231) Comment: Performed By: #### CKB, C7ED , HFP, ACTMJ, SALIJ, CA, MGO, TSH #### [facility] ([facility]) [address] [place] [address] 48574 Monocytes (Bld) [#/Vol] 1.22 0.24-0.93 K/uL High 2019 [facility] (48342) Comment: Performed By: #### CKB, C7ED , HFP, ACTMJ, SALIJ, CA, MGO, TSH #### [facility] ([facility]) [address] [place] [address] 79385 Monocytes/100 WBC (Bld) 10.3 % Normal 2019 [facility] nter (71170) Comment: Performed By: #### CKB, C7ED , HFP, ACTMJ, SALIJ, CA, MGO, TSH #### U [facility] ([facility]) [address] [place] [address] 60401 Nucleated RBC (Bld) 0.0 <=0.2 /100 WBC Normal 03-31-2020 [facility] [#/Vol] [facility] (10307) Comment: Performed By: #### CKB, C7ED , HFP, ACTMJ, SALIJ, CA, MGO, TSH #### U [facility] ([facility]) [address] [place] [address] 19216 Platelet mean volume 11.4 8.7-12.3 fL Normal 0 [facility] (Bld) [Entitic vol] [facility] (01536) Comment: Performed By: #### CKB, C7ED , HFP, ACTMJ, SALIJ, CA, MGO, TSH #### [facility] ([facility]) [address] [place] [address] 42378 Platelets (Bld) [#/Vol] 197 146-337 K/uL Normal 2019 [facility] (81258) Comment: Performed By: #### CKB, C7ED , HFP, ACTMJ, SALIJ, CA, MGO, TSH #### [facility] ([facility]) [address] [place] [address] 11234 RBC (Bld) [#/Vol] 4.31 4.38-5.83 M/uL Low 03-31-2020 O [facility] nter (02840) Comment: Performed By: #### CKB, C7ED , HFP, ACTMJ, SALIJ, CA, MGO, TSH #### U [facility] ([facility]) [address] [place] [address] 65943 RBC (Bld) [#/Vol] 13.4 10.9-14.3 % Normal 03-31-2020 O [facility] nter (62053) Comment: Performed By: #### CKB, C7ED , HFP, ACTMJ, SALIJ, CA, MGO, TSH #### U [facility] ([facility]) [address] [place] [address] 18929 Segs + Bands Auto 73.0 % Normal 03-31-2020 O [facility] (00 000) Comment: Performed By: #### CKB, C7ED , HFP, ACTMJ, SALIJ, CA, MGO, TSH #### U [facility] ([facility]) [address] [place] [address] 36212 Segs + Bands,Absolute Auto 8.70 1.57-6.19 K/uL High [facility] (21461) Comment: Performed By: #### CKB, C7ED , HFP, ACTMJ, SALIJ, CA, MGO, TSH #### [facility] ([facility]) [address] [place] [address] 05680 WBC (Bld) [#/Vol] 11.90 3.73-10.10 K/uL High 03-31-2020 [facility] nter (32107) Comment: Performed By: #### CKB, C7ED , HFP, ACTMJ, SALIJ, CA, MGO, TSH #### U [facility] ([facility]) [address] [place] [address] 68583 No panel information on 2020-03-31 Anion gap 13 7 - 17 mmol/L 03-31-2020 [facility] [Moles/Vol] [facility] (58308) Chloride [Moles/Vol] 103 98 - 108 mmol/L 0 [facility] (47089) CO2 [Moles/Vol] 28 22 - 30 mmol/L 03-31-2020 [facility] (76821) Creatinine 1.08 0.7 - mg/dL 03-31-[facility] 1.3 [facility] (62267) GFR/1.73 sq >=60 >=60 mL/min/{1.7 03-31-2020 [facility] M.predicted MDRD mL/min/1 3_m2} MED ICAL (S/P/Bld) [Vol .73sqM CENTE R rate/Area] ([facility]) Glucose [Mass/Vol] 105 70 - 99 mg/dL High 03-31-2020 [facility] ([facility]) Interpretation and Abnormal 03-31-2020 [facility] review of laboratory MEDICAL results [place] ([facility]) Interpretation and Normal 03-31-2020 [facility] review of laboratory MEDICAL results [place] ([facility]) Magnesium [Mass/Vol] 1.8 1.6 - mg/dL 0 [facility] 2.6 [facility] ([facility]) Osmolality Calc 297 OTH - 03-31-2020 [facility] [Osmolality] [facility] ([facility]) Phosphate [Mass/Vol] 3.5 2.2 - mg/dL 0 [facility] 4.6 [facility] ([facility]) Potassium 4.1 3.5 - 5 mmol/L 03-31-2020 [facility] [Moles/Vol] [facility] ([facility]) Sodium [Moles/Vol] 140 133 - mmol/L 03-31-2020 [facility] 143 [facility] ([facility]) Urea nitrogen 22 7 - 22 mg/dL 03-31-2020 [facility] [Mass/Vol] [facility] ([facility]) Urea 20 mg/mg 03-31-2020 [facility] nitrogen/Creatinine MEDICAL [Mass ratio] [place] ([facility]) Anion gap 13 7 - 17 mmol/L 03-31-2020 [facility] [Moles/Vol] [facility] ([facility]) Chloride [Moles/Vol] 106 98 - 108 mmol/L 0 [facility] ([facility]) CO2 [Moles/Vol] 25 22 - 30 mmol/L 03-31-2020 [facility] ([facility]) Creatinine 1.02 0.7 - mg/dL 03-31-2020 [facility] [Mass/Vol] 1.3 [facility] ([facility]) GFR/1.73 sq >=60 >=60 mL/min/{1.7 03-31-2020 [facility] M.predicted MDRD mL/min/1 3_m2} MED ICAL (S/P/Bld) [Vol .73sqM CENTE R rate/Area] ([facility]) Glucose [Mass/Vol] 117 70 - 99 mg/dL High 03-31-2020 [facility] ([facility]) Interpretation and Abnormal 03-31-2020 [facility] review of laboratory MEDICAL results [place] ([facility]) Interpretation and Normal 03-31-2020 [facility] review of laboratory MEDICAL results [place] ([facility]) Magnesium [Mass/Vol] 1.9 1.6 - mg/dL 0 [facility] 2.6 [facility] ([facility]) Osmolality Calc 298 OTH - 03-31-2020 [facility] [Osmolality] [facility] ([facility]) Phosphate [Mass/Vol] 3.8 2.2 - mg/dL 0 [facility] 4.6 [facility] ([facility]) Potassium 3.9 3.5 - 5 mmol/L 03-31-2020 [facility] [Moles/Vol] [facility] ([facility]) Sodium [Moles/Vol] 140 133 - mmol/L 03-31-2020 [facility] 143 [facility] ([facility]) Urea nitrogen 24 7 - 22 mg/dL High 03-31-2020 [facility] [Mass/Vol] [facility] (27485) Urea 24 mg/mg 03-31-2020 [facility] R nitrogen/Creatinine MEDICAL [Mass ratio] [place] ([facility]) Basophils (Bld) <0.04 0 - 0.09 10*3/uL 03-31-2020 [facility] [#/Vol] [facility] (97323) Basophils/100 WBC 0.2 % 03-31-2020 [facility] (Bld) [facility] ([facility]) DIFF STATUS Electronic 03-31-2020 [facility] Differential [facility] ([facility]) Eosinophils (Bld) 0.46 0 - 0.48 K/uL 03-31-2020 [facility] [#/Vol] [facility] (32617) Eosinophils/100 WBC 3.9 % 03-31-2020 [facility] (Bld) [facility] ([facility]) Erythrocyte 13.4 10.9 - % 03-31-2020 [facility] distribution width 14.3 M EDICAL (RBC) [Ratio] CENTER ([facility]) Hematocrit (Bld) 39.2 39.6 - % Low 03-31-2020 [facility] [Volume fraction] 48.8 ME DICAL [place] ([facility]) Hemoglobin (Bld) 12.8 13.4 - g/dL Low 03-31-2020 [facility] [Mass/Vol] 16.8 [facility] ([facility]) Immature 0.15 <=0.08 K/uL High 03-31-2020 [facility] R granulocytes (Bld) M EDICAL [#/Vol] [place] ([facility]) Immature 1.3 % 03-31-2020 [facility] R granulocytes/100 WBC MEDICAL (Bld) [place] ([facility]) Interpretation and Abnormal 03-31-2020 [facility] review of laboratory MEDICAL results [place] ([facility]) Lymphocytes (Bld) 1.35 0.83 - K/uL 03-31-2020 [facility] [#/Vol] 3.57 [facility] ([facility]) Lymphocytes/100 WBC 11.3 % 03-31-2020 [facility] (Bld) [facility] ([facility]) MCH (RBC) [Entitic 29.7 26.1 - pg 03-31-2020 [facility] mass] 33.3 [facility] ([facility]) MCHC (RBC) 32.7 31.9 - g/dL 03-31-2020 [facility] [Mass/Vol] 36.5 [facility] ([facility]) MCV (RBC) [Entitic 91.0 79 - fL 03-31-2020 [facility] vol] 94.5 [facility] ([facility]) Monocytes (Bld) 1.22 0.24 - K/uL High 03-31-2020 [facility] [#/Vol] 0.93 [facility] ([facility]) Monocytes/100 WBC 10.3 % 03-31-2020 [facility] (Bld) [facility] ([facility]) Neutrophils (Bld) 8.70 1.57 - K/uL High 03-31-2020 [facility] [#/Vol] 6.19 [facility] ([facility]) Nucleated RBC/100 0.0 <=0.2 % 03-31-2020 [facility] WBC (Bld) [Ratio] /100 [facility] ([id number]) Platelet mean volume 11.4 8.7 - fL 0 [facility] (Bld) [Entitic vol] 12.3 [facility] (18668) Platelets (Bld) 197 146 - K/uL 03-31-2020 [facility] [#/Vol] [facility] (96671) RBC (Bld) [#/Vol] 4.31 OTH - 10*6/uL Low 03-31-2020 [facility] (03485) Segmented 73.0 % 03-31-2020 [facility] R neutrophils/100 WBC [facility] (Bld) [place] (29036) WBC (Bld) [#/Vol] 11.90 3.73 - K/uL High 03-31-2020 O [facility] 10.1 [facility] ([facility]) phosphate, inorganic on 2020-03-30 Phosphorous 4.1 2.2-4.6 mg/dL Normal 03-30-2020 [facility] (00 000) Comment: Performed By: #### CKB, C7ED , HFP, ACTMJ, SALIJ, CA, MGO, TSH #### [facility] ([facility]) [address] [place] [address] 18780 Phosphorous 3.7 2.2-4.6 mg/dL Normal 03-30-2020 [facility] (00 000) Comment: Performed By: #### CKB, C7ED , HFP, ACTMJ, SALIJ, CA, MGO, TSH #### [facility] ([facility]) [address] [place] [address] 95458 magnesium on 03-30 Magnesium [Mass/Vol] 1.9 1.6-2.6 mg/dL Normal 0 [facility] nter (71320) Comment: Performed By: #### CKB, C7ED , HFP, ACTMJ, SALIJ, CA, MGO, TSH #### [facility] ([facility]) [address] [place] [address] 11422 Magnesium [Mass/Vol] 2.0 1.6-2.6 mg/dL Normal 0 [facility] nter (59972) Comment: Performed By: #### CKB, C7ED , HFP, ACTMJ, SALIJ, CA, MGO, TSH #### [facility] ([facility]) [address] [place] [address] 24274 chem 7 (lytes,bun,crea,gluc) on 2020-03-30 Anion gap [Moles/Vol] 14 7-17 mmol/L Normal 03-30-20 20 [facility] nter (32114) Comment: Performed By: #### CKB, C7ED , HFP, ACTMJ, SALIJ, CA, MGO, TSH #### [facility] ([facility]) [address] [place] [address] 26911 Chloride [Moles/Vol] 105 98-108 mmol/L Normal 0 [facility] nter (05295) Comment: Performed By: #### CKB, C7ED , HFP, ACTMJ, SALIJ, CA, MGO, TSH #### [facility] ([facility]) [address] [place] [address] 86113 CO2 [Moles/Vol] 25 22-30 mmol/L Normal 03-30-2020 [facility] nter (03062) Comment: Performed By: #### CKB, C7ED , HFP, ACTMJ, SALIJ, CA, MGO, TSH #### [facility] ([facility]) [address] [place] [address] 98147 Creatinine [Mass/Vol] 1.07 0.70-1.30 mg/dL Normal 03-30-[address] [facility] (85853) Comment: Performed By: #### CKB, C7ED , HFP, ACTMJ, SALIJ, CA, MGO, TSH #### [facility] ([facility]) [address] [place] [address] 24121 EST GFR, 60 >=60 mL/min/1.73sqM Normal 03-30-20 [facility] (42874) Comment: Performed By: #### CKB, C7ED , HFP, ACTMJ, SALIJ, CA, MGO, TSH #### U [facility] ([facility]) [address] [place] [address] 45980 EST GFR,Non 60 >=60 mL/min/1.73sqM Normal 03-30 [facility] (68196) Comment: Performed By: #### CKB, C7ED , HFP, ACTMJ, SALIJ, CA, MGO, TSH #### U [facility] ([facility]) [address] [place] [address] 69820 Glucose [Mass/Vol] 119 70-99 mg/dL High 03-30-2020 [facility] nter (47955) Comment: Performed By: #### CKB, C7ED , HFP, ACTMJ, SALIJ, CA, MGO, TSH #### U [facility] ([facility]) [address] [place] [address] 07465 Osmolality [Osmolality] 299 278-305 mOsm/kg Normal 2019 [facility] (02351) Comment: Performed By: #### CKB, C7ED , HFP, ACTMJ, SALIJ, CA, MGO, TSH #### U [facility] ([facility]) [address] [place] [address] 67773 Potassium [Moles/Vol] 4.1 3.5-5.0 mmol/L Normal 03-30-20 [facility] (01063) Comment: Performed By: #### CKB, C7ED , HFP, ACTMJ, SALIJ, CA, MGO, TSH #### U [facility] ([facility]) [address] [place] [address] 37225 Sodium [Moles/Vol] 140 133-143 mmol/L Normal 03-30-2020 [facility] nter (69748) Comment: Performed By: #### CKB, C7ED , HFP, ACTMJ, SALIJ, CA, MGO, TSH #### U [facility] ([facility]) [address] [place] [address] 45041 Urea nitrogen [Mass/Vol] 25 7-22 mg/dL High 03-30 [facility] nter (75273) Comment: Performed By: #### CKB, C7ED , HFP, ACTMJ, SALIJ, CA, MGO, TSH #### U [facility] ([facility]) [address] [place] [address] 50698 Urea nitrogen/Creatinine [Mass 23 mg/mg Normal 03-30-2020 [facility] ratio] [facility] (23300) Comment: Performed By: #### CKB, C7ED , HFP, ACTMJ, SALIJ, CA, MGO, TSH #### [facility] ([facility]) [address] [place] [address] 64742 Anion gap [Moles/Vol] 12 7-17 mmol/L Normal 03-30-20 20 [facility] nter (77681) Comment: Performed By: #### CKB, C7ED , HFP, ACTMJ, SALIJ, CA, MGO, TSH #### U [facility] ([facility]) [address] [place] [address] 70418 Chloride [Moles/Vol] 110 98-108 mmol/L High 0 [facility] nter (43258) Comment: Performed By: #### CKB, C7ED , HFP, ACTMJ, SALIJ, CA, MGO, TSH #### U [facility] ([facility]) [address] [place] [address] 70587 CO2 [Moles/Vol] 24 22-30 mmol/L Normal 03-30-2020 [facility] nter (95836) Comment: Performed By: #### CKB, C7ED , HFP, ACTMJ, SALIJ, CA, MGO, TSH #### [facility] ([facility]) [address] [place] [address] 62864 Creatinine [Mass/Vol] 1.18 0.70-1.30 mg/dL Normal 03-30-20 [facility] (24339) Comment: Performed By: #### CKB, C7ED , HFP, ACTMJ, SALIJ, CA, MGO, TSH #### [facility] ([facility]) [address] [place] [address] 57893 EST GFR, 60 >=60 mL/min/1.73sqM Normal 03-30-20 20 [facility] (19542) Comment: Performed By: #### CKB, C7ED , HFP, ACTMJ, SALIJ, CA, MGO, TSH #### [facility] ([facility]) [address] [place] [address] 19160 EST GFR,Non 60 >=60 mL/min/1.73sqM Normal 03-30 [facility] (24437) Comment: Performed By: #### CKB, C7ED , HFP, ACTMJ, SALIJ, CA, MGO, TSH #### [facility] ([facility]) [address] [place] [address] 32180 Glucose [Mass/Vol] 115 70-99 mg/dL High 03-30-2020 [facility] nter (27751) Comment: Performed By: #### CKB, C7ED , HFP, ACTMJ, SALIJ, CA, MGO, TSH #### [facility] ([facility]) [address] [place] [address] 34807 Osmolality [Osmolality] 302 278-305 mOsm/kg Normal 2019 [facility] (25432) Comment: Performed By: #### CKB, C7ED , HFP, ACTMJ, SALIJ, CA, MGO, TSH #### [facility] ([facility]) [address] [place] [address] 79104 Potassium [Moles/Vol] 3.8 3.5-5.0 mmol/L Normal 03-30-20 20 [facility] (51456) Comment: Performed By: #### CKB, C7ED , HFP, ACTMJ, SALIJ, CA, MGO, TSH #### [facility] ([facility]) [address] [place] [address] 68888 Sodium [Moles/Vol] 142 133-143 mmol/L Normal 03-30-2020 [facility] nter (74827) Comment: Performed By: #### CKB, C7ED , HFP, ACTMJ, SALIJ, CA, MGO, TSH #### [facility] ([facility]) [address] [place] [address] 70912 Urea nitrogen [Mass/Vol] 27 7-22 mg/dL High 03-30 [facility] nter (76809) Comment: Performed By: #### CKB, C7ED , HFP, ACTMJ, SALIJ, CA, MGO, TSH #### [facility] ([facility]) [address] [place] [address] 84408 Urea nitrogen/Creatinine [Mass 23 mg/mg Normal 03-30-2020 [facility] ratio] [facility] (12885) Comment: Performed By: #### CKB, C7ED , HFP, ACTMJ, SALIJ, CA, MGO, TSH #### [facility] ([facility]) [address] [place] [address] 98643 cbc and electronic diff on 2020-03-30 Basophils (Bld) [#/Vol] 0.04 0.00-0.09 K/uL Normal 2019 [facility] (46425) Comment: Performed By: #### CKB, C7ED , HFP, ACTMJ, SALIJ, CA, MGO, TSH #### [facility] [address] [place] [address] 99427 Basophils/100 WBC (Bld) 0.2 % Normal 2019 [facility] nter (38923) Comment: Performed By: #### CKB, C7ED , HFP, ACTMJ, SALIJ, CA, MGO, TSH #### [facility] ([facility]) [address] [place] [address] 99771 DIFF STATUS Electronic Differential Normal 03-09 [facility] (36638) Comment: Performed By: #### CKB, C7ED , HFP, ACTMJ, SALIJ, CA, MGO, TSH #### U [facility] ([facility]) [address] [place] [address] 02940 Eosinophils (Bld) 0.47 0.00-0.48 K/uL Normal 03-30-2020 O [facility] [#/Vol] [facility] (49166) Comment: Performed By: #### CKB, C7ED , HFP, ACTMJ, SALIJ, CA, MGO, TSH #### [facility] ([facility]) [address] [place] [id number] Eosinophils/100 WBC (Bld) 4.2 % Normal 03-09 [facility] nter ([id number]) Comment: Performed By: #### CKB, C7ED , HFP, ACTMJ, SALIJ, CA, MGO, TSH #### [facility] ([facility]) [address] [place] [address] Hematocrit (Bld) [Volume 40.1 39.6-48.8 % Normal 03-30 [facility] fraction] [facility] ([id number]) Comment: Performed By: #### CKB, C7ED , HFP, ACTMJ, SALIJ, CA, MGO, TSH #### [facility] ([facility]) [address] [place] [address] [id number] Hemoglobin (Bld) 13.1 13.4-16.8 g/dL Low 03-30-2020 [facility] [Mass/Vol] [facility] ([id number]) Comment: Performed By: #### CKB, C7ED , HFP, ACTMJ, SALIJ, CA, MGO, TSH #### [facility] ([facility]) [address] [place] [address]2486 Immature Grans % 0.9 % Normal 03-30-2020 [facility] (00 000) Comment: Performed By: #### CKB, C7ED , HFP, ACTMJ, SALIJ, CA, MGO, TSH #### [facility] ([facility]) [address] [place] [address]64 Immature Grans Absolute 0.10 <=0.08 K/uL High 2019 [facility] [facility] (06984) Comment: Performed By: #### CKB, C7ED , HFP, ACTMJ, SALIJ, CA, MGO, TSH #### [facility] ([facility]) [address] [place] [address] 68912 Lymphocytes (Bld) 1.39 0.83-3.57 K/uL Normal 03-30-2020 [facility] [#/Vol] [facility] (42861) Comment: Performed By: #### CKB, C7ED , HFP, ACTMJ, SALIJ, CA, MGO, TSH #### [facility] ([facility]) [address] [place] [address] 02122 Lymphocytes/100 WBC (Bld) 12.4 % Normal 03-09 [facility] nter (19278) Comment: Performed By: #### CKB, C7ED , HFP, ACTMJ, SALIJ, CA, MGO, TSH #### U [facility] ([facility]) [address] [place] [address] 84672 MCV (RBC) [Entitic vol] 91.8 79.0-94.5 fL Normal 2019 [facility] (09832) Comment: Performed By: #### CKB, C7ED , HFP, ACTMJ, SALIJ, CA, MGO, TSH #### [facility] ([facility]) [address] [place] [address] 58258 Mean Cell Hgb 30.0 26.1-33.3 pg Normal 03-30-2020 [facility] nter (89166) Comment: Performed By: #### CKB, C7ED , HFP, ACTMJ, SALIJ, CA, MGO, TSH #### U [facility] ([facility]) [address] [place] [address] 94650 Mean Cell Hgb Conc 32.7 31.9-36.5 g/dL Normal 03-30-2020 [facility] nter (29861) Comment: Performed By: #### CKB, C7ED , HFP, ACTMJ, SALIJ, CA, MGO, TSH #### U [facility] ([facility]) [address] [place] [address] 71250 Monocytes (Bld) [#/Vol] 0.99 0.24-0.93 K/uL High 2019 [facility] (78090) Comment: Performed By: #### CKB, C7ED , HFP, ACTMJ, SALIJ, CA, MGO, TSH #### U [facility] ([facility]) [address] [place] [address] 65389 Monocytes/100 WBC (Bld) 8.9 % Normal 2019 [facility] nter (99720) Comment: Performed By: #### CKB, C7ED , HFP, ACTMJ, SALIJ, CA, MGO, TSH #### U [facility] ([facility]) [address] [place] [address] 82817 Nucleated RBC (Bld) 0.0 <=0.2 /100 WBC Normal 03-30-2020 [facility] [#/Vol] [facility] (02751) Comment: Performed By: #### CKB, C7ED , HFP, ACTMJ, SALIJ, CA, MGO, TSH #### U [facility] ([facility]) [address] [place] [address] 30584 Platelet mean volume 11.1 8.7-12.3 fL Normal 0 [facility] (Bld) [Entitic vol] [facility] (96085) Comment: Performed By: #### CKB, C7ED , HFP, ACTMJ, SALIJ, CA, MGO, TSH #### U [facility] ([facility]) [address] [place] [address] 27851 Platelets (Bld) [#/Vol] 196 146-337 K/uL Normal 2019 [facility] (83438) Comment: Performed By: #### CKB, C7ED , HFP, ACTMJ, SALIJ, CA, MGO, TSH #### [facility] ([facility]) [address] [place] [address] 67312 RBC (Bld) [#/Vol] 4.37 4.38-5.83 M/uL Low 03-30-2020 O [facility] nter (40867) Comment: Performed By: #### CKB, C7ED , HFP, ACTMJ, SALIJ, CA, MGO, TSH #### [facility] ([facility]) [address] [place] [address] 14420 RBC (Bld) [#/Vol] 13.5 10.9-14.3 % Normal 03-30-2020 O [facility] nter (35723) Comment: Performed By: #### CKB, C7ED , HFP, ACTMJ, SALIJ, CA, MGO, TSH #### [facility] ([facility]) [address] [place] [address] 56003 Segs + Bands Auto 73.4 % Normal 03-30-2020 O [facility] (00 000) Comment: Performed By: #### CKB, C7ED , HFP, ACTMJ, SALIJ, CA, MGO, TSH #### U [facility] ([facility]) [address] [place] [address] 12054 Segs + Bands,Absolute Auto 8.20 1.57-6.19 K/uL High [facility] (55421) Comment: Performed By: #### CKB, C7ED , HFP, ACTMJ, SALIJ, CA, MGO, TSH #### U [facility] ([facility]) [address] [place] [address] WBC (Bld) [#/Vol] 11.17 3.73-10.10 K/uL High 03-30-2020 [facility] nter (26620) Comment: Performed By: #### CKB, C7ED , HFP, ACTMJ, SALIJ, CA, MGO, TSH #### U [facility] ([facility]) [address] [place] [address] No panel information on 2020-03-30 Anion gap 14 7 - 17 mmol/L 03-30-[address] [facility] R [Moles/Vol] [facility] (81919) Chloride [Moles/Vol] 105 98 - 108 mmol/L 0 [facility] (86169) CO2 [Moles/Vol] 25 22 - 30 mmol/L 03-30-2020 [facility] (83602) Creatinine 1.07 0.7 - mg/dL [facility]30-[facility] [Mass/Vol] 1.3 [facility] (23331) GFR/1.73 sq >=60 >=60 mL/min/{1.7 03-30-[facility]D mL/min/1 3_m2} MED ICAL (S/P/Bld) [Vol .73sqM CENTE R rate/Area] (49781) Glucose [Mass/Vol] 119 70 - 99 mg/dL High 03-30-2020 [facility] (18175) Interpretation and Abnormal 03-30-2020 [facility] review of laboratory MEDICAL results [place] (91071) Interpretation and Normal 03-30-2020 [facility] review of laboratory [facility] results [place] (86139) Magnesium [Mass/Vol] 1.9 1.6 - mg/dL 0 U [facility] 2.6 [facility] (44450) Osmolality Calc 299 OTH - 03-30-2020 [facility] [Osmolality] [facility] (35541) Phosphate [Mass/Vol] 4.1 2.2 - mg/dL 0 [facility] 4.6 [facility] (49283) Potassium 4.1 3.5 - 5 mmol/L 03-30-2020 [facility] R [Moles/Vol] [facility] ([facility]) Sodium [Moles/Vol] 140 133 - mmol/L 03-30-2020 [facility] 143 [facility] ([facility]) Urea nitrogen 25 7 - 22 mg/dL High 03-30-2020 [facility] [Mass/Vol] [facility] ([facility]) Urea 23 mg/mg 03-30-2020 [facility] R nitrogen/Creatinine [facility] [Mass ratio] [place] ([facility]) Anion gap 12 7 - 17 mmol/L 03-30-2020 [facility] [Moles/Vol] [facility] ([facility]) Chloride [Moles/Vol] 110 98 - 108 mmol/L High 0 [facility] ([facility]) CO2 [Moles/Vol] 24 22 - 30 mmol/L 03-30-2020 [facility] ([facility]) Creatinine 1.18 0.7 - mg/dL 03-30-2020 [facility] [Mass/Vol] 1.3 [facility] ([facility]) GFR/1.73 sq >=60 >=60 mL/min/{1.7 03-30-2020 [facility] M.predicted MDRD mL/min/1 3_m2} MED ICAL (S/P/Bld) [Vol .73sqM CENT[facility] R rate/Area] ([facility]) Glucose [Mass/Vol] 115 70 - 99 mg/dL High 03-30-2020 [facility] ([facility]) Interpretation and Normal 03-30-2020 [facility] review of laboratory MEDICAL results [place] ([facility]) Interpretation and Abnormal 03-30-2020 [facility] review of laboratory MEDICAL results [place] ([facility]) Magnesium [Mass/Vol] 2.0 1.6 - mg/dL 0 [facility] 2.6 [facility] ([facility]) Osmolality Calc 302 OTH - 03-30-2020 [facility] [Osmolality] [facility] ([facility]) Phosphate [Mass/Vol] 3.7 2.2 - mg/dL 0 [facility] 4.6 [facility] ([facility]) Potassium 3.8 3.5 - 5 mmol/L 03-30-2020 [facility] [Moles/Vol] [facility] ([facility]) Sodium [Moles/Vol] 142 133 - mmol/L 03-30-2020 [facility] 143 [facility] ([facility]) Urea nitrogen 27 7 - 22 mg/dL High 03-30-2020 [facility] [Mass/Vol] [facility] ([facility]) Urea 23 mg/mg 03-30-2020 [facility] nitrogen/Creatinine [facility] [Mass ratio] [place] ([facility]) Basophils (Bld) <0.04 0 - 0.09 10*3/uL 03-30-2020 [facility] [#/Vol] [facility] ([facility]) Basophils/100 WBC 0.2 % 03-30-2020 [facility] [place] (Bld) [facility] ([facility]) DIFF STATUS Electronic 03-30-2020 [facility] Differential [facility] ([facility]) Eosinophils (Bld) 0.47 0 - 0.48 K/uL 03-30-2020 [facility] [place] [#/Vol] [facility] ([facility]) Eosinophils/100 WBC 4.2 % 03-30-2020 [facility] (Bld) [facility] ([facility]) Erythrocyte 13.5 10.9 - % 03-30-2020 [facility] distribution width 14.3 M EDICAL (RBC) [Ratio] [place] ([facility]) Hematocrit (Bld) 40.1 39.6 - % 03-30-2020 [facility] [place] [Volume fraction] 48.8 ME DICAL [place] ([facility]) Hemoglobin (Bld) 13.1 13.4 - g/dL Low 03-30-2020 [facility] [place] [Mass/Vol] 16.8 [facility] ([facility]) Immature 0.10 <=0.08 K/uL High 03-30-2020 [facility] R granulocytes (Bld) M EDICAL [#/Vol] [place] ([facility]) Immature 0.9 % 03-30-2020 [facility] granulocytes/100 WBC MEDICAL (Bld) [place] ([facility]) Interpretation and Abnormal 03-30-2020 [facility] review of laboratory MEDICAL results [place] ([facility]) Lymphocytes (Bld) 1.39 0.83 - K/uL 03-30-2020 [facility] [place] [#/Vol] 3.57 [facility] ([facility]) Lymphocytes/100 WBC 12.4 % 03-30-2020 [facility] (Bld) [facility] ([facility]) MCH (RBC) [Entitic 30.0 26.1 - pg 03-30-2020 [facility] mass] 33.3 [facility] ([facility]) MCHC (RBC) 32.7 31.9 - g/dL 03-30-2020 [facility] [Mass/Vol] 36.5 [facility] ([facility]) MCV (RBC) [Entitic 91.8 79 - fL 03-30-2020 [facility] vol] 94.5 [facility] ([facility]) Monocytes (Bld) 0.99 0.24 - K/uL High 03-30-2020 [facility] [#/Vol] 0.93 [facility] ([facility]) Monocytes/100 WBC 8.9 % 03-30-2020 [facility] [place] (Bld) [facility] ([facility]) Neutrophils (Bld) 8.20 1.57 - K/uL High 03-30-2020 [facility] [place] [#/Vol] 6.19 [facility] ([facility]) Nucleated RBC/100 0.0 <=0.2 % 03-30-2020 [facility] [place] WBC (Bld) [Ratio] /100 WBC FL DICAL [place] ([facility]) Platelet mean volume 11.1 8.7 - fL 0 [facility] (Bld) [Entitic vol] 12.3 [facility] ([facility]) Platelets (Bld) 196 146 - K/uL 03-30-2020 [facility] [#/Vol] 337 [facility] ([facility]) RBC (Bld) [#/Vol] 4.37 OTH - 10*6/uL Low 03-30-2020 [facility] ([facility]) Segmented 73.4 % 03-30-2020 [facility] R neutrophils/100 WBC MEDICAL (Bld) [place] ([facility]) WBC (Bld) [#/Vol] 11.17 3.73 - K/uL High 03-30-2020 [facility] [place] 10.1 [facility] (81617) xr fluoro modified barium swallow with s peech on 2020-03-29 XR FLUORO MODIFIED EXAM: XR FLUORO MODIFIED BAR IUM SWALLOW WITH SPEECH, 03/29/2020 13:29 PM Normal 03-29-2020 [facility] BARIUM SWALLOW COMPARISON: No prior barium swallow studies available for comparison. [facility] er WITH SPEECH CLINICAL INDICATIONS: dysphagia post CVA [facility] TECHNIQUE: ([id number]) Multiple barium consistencies (thin, nectar, honey, puree [...] 1 VIEW, 03/28/2020 18:12 PM Normal 03-29-2020 [facility] COMPARISON: No prior abdominal radiographs available for [facility] CLINICAL INDICATIONS: ng placement [facility] FINDINGS: (10102) Tubes: Interval removal of the NG/OG tube [...] (PPP) [Relative 1.1 0.9-1.1 {INR} Normal 03-29 [facility] time] [facility] (49123) Comment: Performed By: #### CKB, C7ED , HFP, ACTMJ, SALIJ, CA, MGO, TSH #### [facility] ([facility]) [address] [place] [address] 33818 PT Coag (PPP) [Time] 14.4 11.9-14.2 sec High 0 [facility] nter (34202) Comment: Performed By: #### CKB, C7ED , HFP, ACTMJ, SALIJ, CA, MGO, TSH #### [facility] ([facility]) [address] [place] [address] 19039 phosphate, inorganic on 2020-03-29 Phosphorous 3.1 2.2-4.6 mg/dL Normal 03-29-2020 [facility] (00 000) Comment: Performed By: #### CKB, C7ED , HFP, ACTMJ, SALIJ, CA, MGO, TSH #### [facility] ([facility]) [address] [place] [address] 00965 Phosphorous 2.5 2.2-4.6 mg/dL Normal 03-29-2020 [facility] (00 000) Comment: Performed By: #### CKB, C7ED , HFP, ACTMJ, SALIJ, CA, MGO, TSH #### [facility] ([facility]) [address] [place] [address] 60488 magnesium on 03-29 Magnesium [Mass/Vol] 2.1 1.6-2.6 mg/dL Normal 0 [facility] nter (51266) Comment: Performed By: #### CKB, C7ED , HFP, ACTMJ, SALIJ, CA, MGO, TSH #### [facility] ([facility]) [address] [place] [address] 71961 Magnesium [Mass/Vol] 2.1 1.6-2.6 mg/dL Normal 0 [facility] nter (04794) Comment: Performed By: #### CKB, C7ED , HFP, ACTMJ, SALIJ, CA, MGO, TSH #### [facility] ([facility]) [address] [place] [address] 59233 chem 7 (lytes,bun,crea,gluc) on 2020-03-29 Anion gap [Moles/Vol] 13 7-17 mmol/L Normal 03-29-20 20 [facility] nter (74289) Comment: Performed By: #### CKB, C7ED , HFP, ACTMJ, SALIJ, CA, MGO, TSH #### [facility] ([facility]) [address] [place] [address] 89135 Chloride [Moles/Vol] 107 98-108 mmol/L Normal 0 [facility] nter (14560) Comment: Performed By: #### CKB, C7ED , HFP, ACTMJ, SALIJ, CA, MGO, TSH #### [facility] [address] [place] [address] 72385 CO2 [Moles/Vol] 26 22-30 mmol/L Normal 03-29-2020 [facility] nter (96880) Comment: Performed By: #### CKB, C7ED , HFP, ACTMJ, SALIJ, CA, MGO, TSH #### [facility] ([facility]) [address] [place] [address] 23948 Creatinine [Mass/Vol] 1.05 0.70-1.30 mg/dL Normal 03-29-20 [facility] (96888) Comment: Performed By: #### CKB, C7ED , HFP, ACTMJ, SALIJ, CA, MGO, TSH #### [facility] ([facility]) [address] [place] [address] 97965 EST GFR, 60 >=60 mL/min/1.73sqM Normal 03-29-20 [facility] (58492) Comment: Performed By: #### CKB, C7ED , HFP, ACTMJ, SALIJ, CA, MGO, TSH #### U [facility] ([facility]) [address] [place] [address] 48442 EST GFR,Non 60 >=60 mL/min/1.73sqM Normal 03-29 [facility] (29749) Comment: Performed By: #### CKB, C7ED , HFP, ACTMJ, SALIJ, CA, MGO, TSH #### [facility] ([facility]) [address] [place] [address] 19314 Glucose [Mass/Vol] 86 70-99 mg/dL Normal 03-29-2020 [facility] nter (29663) Comment: Performed By: #### CKB, C7ED , HFP, ACTMJ, SALIJ, CA, MGO, TSH #### [facility] ([facility] [address] [place] [address] 91165 Osmolality [Osmolality] 299 278-305 mOsm/kg Normal 2019 [facility] (77345) Comment: Performed By: #### CKB, C7ED , HFP, ACTMJ, SALIJ, CA, MGO, TSH #### [facility] ([facility]) [address] [place] [address] 36948 Potassium [Moles/Vol] 3.7 3.5-5.0 mmol/L Normal 03-29-20 [facility] (19303) Comment: Performed By: #### CKB, C7ED , HFP, ACTMJ, SALIJ, CA, MGO, TSH #### [facility] ([facility] [address] [place] [address] 99644 Sodium [Moles/Vol] 142 133-143 mmol/L Normal 03-29-2020 [facility] nter (47842) Comment: Performed By: #### CKB, C7ED , HFP, ACTMJ, SALIJ, CA, MGO, TSH #### [facility] ([facility]) [address] [place] [address] 65771 Urea nitrogen [Mass/Vol] 24 7-22 mg/dL High 03-29 [facility] nter (81295) Comment: Performed By: #### CKB, C7ED , HFP, ACTMJ, SALIJ, CA, MGO, TSH #### U [facility] ([facility]) [address] [place] [address] 85941 Urea nitrogen/Creatinine [Mass 23 mg/mg Normal 03-29-2020 [facility] ratio] [facility] (91459) Comment: Performed By: #### CKB, C7ED , HFP, ACTMJ, SALIJ, CA, MGO, TSH #### [facility] ([facility] [address] [place] [address] 50329 Anion gap [Moles/Vol] 13 7-17 mmol/L Normal 03-29-20 [facility] nter (22812) Comment: Performed By: #### CKB, C7ED , HFP, ACTMJ, SALIJ, CA, MGO, TSH #### [facility] ([facility]) [address] [place] [address] 12899 Chloride [Moles/Vol] 109 mmol/L High 0 [facility] (40180) Comment: Performed By: #### CKB, C7ED , HFP, ACTMJ, SALIJ, CA, MGO, TSH #### [facility] ([facility]) [address] [place] [address] 19533 CO2 [Moles/Vol] 23 mmol/L Normal 03-29-2020 [facility] (85937) Comment: Performed By: #### CKB, C7ED , HFP, ACTMJ, SALIJ, CA, MGO, TSH #### [facility] ([facility]) [address] [place] [address] 91774 Creatinine [Mass/Vol] 1.00 mg/dL Normal 03-29-20 20 [facility] (95063) Comment: Performed By: #### CKB, C7ED , HFP, ACTMJ, SALIJ, CA, MGO, TSH #### [facility] ([facility]) [address] [place] [address] 91158 EST GFR, 60 >=60 mL/min/1.73sqM Normal 03-29-20 20 [facility] (40954) Comment: Performed By: #### CKB, C7ED , HFP, ACTMJ, SALIJ, CA, MGO, TSH #### [facility] ([facility]) [address] [place] [address] 64950 EST GFR,Non 60 >=60 mL/min/1.73sqM Normal 03-29 [facility] (16562) Comment: Performed By: #### CKB, C7ED , HFP, ACTMJ, SALIJ, CA, MGO, TSH #### [facility] ([facility]) [address] [place] [address] 90655 Glucose [Mass/Vol] 82 mg/dL Normal 03-29-2020 [facility] (90236) Comment: Performed By: #### CKB, C7ED , HFP, ACTMJ, SALIJ, CA, MGO, TSH #### [facility] ([facility]) [address] [place] [address] 60931 Osmolality [Osmolality] 297 278-305 mOsm/kg Normal 2019 [facility] (46439) Comment: Performed By: #### CKB, C7ED , HFP, ACTMJ, SALIJ, CA, MGO, TSH #### [facility] ([facility]) [address] [place] [address] 19686 Potassium [Moles/Vol] 3.9 mmol/L Normal 03-29-20 [facility] (42707) Comment: Performed By: #### CKB, C7ED , HFP, ACTMJ, SALIJ, CA, MGO, TSH #### [facility] ([facility]) [address] [place] [address] 09205 Sodium [Moles/Vol] 141 mmol/L Normal 03-29-2020 [facility] (34881) Comment: Performed By: #### CKB, C7ED , HFP, ACTMJ, SALIJ, CA, MGO, TSH #### [facility] ([facility]) [address] [place] [address] 56003 Urea nitrogen [Mass/Vol] 23 mg/dL High 03-29 [facility] (43089) Comment: Performed By: #### CKB, C7ED , HFP, ACTMJ, SALIJ, CA, MGO, TSH #### [facility] ([facility]) [address] [place] [address] 62416 Urea nitrogen/Creatinine [Mass 23 mg/mg Normal 03-29-2020 [facility] ratio] [facility] (92498) Comment: Performed By: #### CKB, C7ED , HFP, ACTMJ, SALIJ, CA, MGO, TSH #### [facility] ([facility]) [address] [place] [address] 14751 cbc and electronic diff on 2020-03-29 Basophils (Bld) [#/Vol] 0.04 0.00-0.09 K/uL Normal 2019 [facility] (10685) Comment: Performed By: #### CKB, C7ED , HFP, ACTMJ, SALIJ, CA, MGO, TSH #### [facility] ([facility]) [address] [place] [address] 92866 Basophils/100 WBC (Bld) 0.3 % Normal 2019 [facility] nter (20524) Comment: Performed By: #### CKB, C7ED , HFP, ACTMJ, SALIJ, CA, MGO, TSH #### [facility] ([facility]) [address] [place] [address] 32289 DIFF STATUS Electronic Differential Normal 03-09 [facility] ([id number]) Comment: Performed By: #### CKB, C7ED , HFP, ACTMJ, SALIJ, CA, MGO, TSH #### [facility] ([facility]) [address] [place] [address] [id number] Eosinophils (Bld) [#/Vol] 0.60 0.00-0.48 K/uL High 03-09 [facility] ([id number]) Comment: Performed By: #### CKB, C7ED , HFP, ACTMJ, SALIJ, CA, MGO, TSH #### [facility] ([facility]) [address] [place] [address] 45341 Eosinophils/100 WBC (Bld) 5.5 % Normal 03-09 [facility] nter ([id number]) Comment: Performed By: #### CKB, C7ED , HFP, ACTMJ, SALIJ, CA, MGO, TSH #### [facility] ([facility]) [address] [place] [address] 91039 Hematocrit (Bld) [Volume 41.9 39.6-48.8 % Normal 03-29 [facility] fraction] [facility] ([id number]) Comment: Performed By: #### CKB, C7ED , HFP, ACTMJ, SALIJ, CA, MGO, TSH #### [facility] ([facility]) [address] [place] [address] 07406 Hemoglobin (Bld) 13.6 13.4-16.8 g/dL Normal 03-29-2020 [facility] [Mass/Vol] [facility] ([id number]) Comment: Performed By: #### CKB, C7ED , HFP, ACTMJ, SALIJ, CA, MGO, TSH #### [facility] ([facility]) [address] [place] [address] 17350 Immature Grans % 1.1 % Normal 03-29-2020 [facility] (00 000) Comment: Performed By: #### CKB, C7ED , HFP, ACTMJ, SALIJ, CA, MGO, TSH #### U [facility] ([facility]) [address] [place] [address] 18330 Immature Grans Absolute 0.12 <=0.08 K/uL High 2019 [facility] nter (02873) Comment: Performed By: #### CKB, C7ED , HFP, ACTMJ, SALIJ, CA, MGO, TSH #### U [facility] ([facility]) [address] [place] [address] 70407 Lymphocytes (Bld) 1.43 0.83-3.57 K/uL Normal 03-29-2020 O [facility] [#/Vol] [facility] (55366) Comment: Performed By: #### CKB, C7ED , HFP, ACTMJ, SALIJ, CA, MGO, TSH #### U [facility] ([facility]) [address] [place] [address] 97835 Lymphocytes/100 WBC (Bld) 13.1 % Normal 03-09 [facility] nter (04256) Comment: Performed By: #### CKB, C7ED , HFP, ACTMJ, SALIJ, CA, MGO, TSH #### [facility] ([facility]) [address] [place] [address] 44174 MCV (RBC) [Entitic vol] 91.1 79.0-94.5 fL Normal 2019 [facility] (93343) Comment: Performed By: #### CKB, C7ED , HFP, ACTMJ, SALIJ, CA, MGO, TSH #### [facility] ([facility]) [address] [place] [address] 64274 Mean Cell Hgb 29.6 26.1-33.3 pg Normal 03-29-2020 [facility] nter (48377) Comment: Performed By: #### CKB, C7ED , HFP, ACTMJ, SALIJ, CA, MGO, TSH #### [facility] ([facility]) [address] [place] [address] 06422 Mean Cell Hgb Conc 32.5 31.9-36.5 g/dL Normal 03-29-2020 [facility] nter (36601) Comment: Performed By: #### CKB, C7ED , HFP, ACTMJ, SALIJ, CA, MGO, TSH #### [facility] ([facility]) [address] [place] [address] 52528 Monocytes (Bld) [#/Vol] 0.83 0.24-0.93 K/uL Normal 2019 [facility] (24441) Comment: Performed By: #### CKB, C7ED , HFP, ACTMJ, SALIJ, CA, MGO, TSH #### [facility] ([facility]) [address] [place] [address] 91326 Monocytes/100 WBC (Bld) 7.6 % Normal 2019 [facility] nter (37380) Comment: Performed By: #### CKB, C7ED , HFP, ACTMJ, SALIJ, CA, MGO, TSH #### U [facility] ([facility]) [address] [place] [address] 18721 Nucleated RBC (Bld) 0.0 <=0.2 /100 WBC Normal 03-29-2020 [facility] [#/Vol] [facility] (84028) Comment: Performed By: #### CKB, C7ED , HFP, ACTMJ, SALIJ, CA, MGO, TSH #### U [facility] ([facility]) [address] [place] [address] 11265 Platelet mean volume 11.7 8.7-12.3 fL Normal 0 [facility] (Bld) [Entitic vol] [facility] (68394) Comment: Performed By: #### CKB, C7ED , HFP, ACTMJ, SALIJ, CA, MGO, TSH #### [facility] ([facility]) [address] [place] [address] 09734 Platelets (Bld) [#/Vol] 189 146-337 K/uL Normal 2019 [facility] (50442) Comment: Performed By: #### CKB, C7ED , HFP, ACTMJ, SALIJ, CA, MGO, TSH #### [facility] ([facility]) [address] [place] [address] 96082 RBC (Bld) [#/Vol] 4.60 4.38-5.83 M/uL Normal 03-29-2020 O [facility] nter (22656) Comment: Performed By: #### CKB, C7ED , HFP, ACTMJ, SALIJ, CA, MGO, TSH #### U [facility] ([facility]) [address] [place] [address] 20375 RBC (Bld) [#/Vol] 13.5 10.9-14.3 % Normal 03-29-2020 O [facility] nter (23298) Comment: Performed By: #### CKB, C7ED , HFP, ACTMJ, SALIJ, CA, MGO, TSH #### U [facility] ([facility]) [address] [place] [address] 88970 Segs + Bands Auto 72.4 % Normal 03-29-2020 O [facility] (00 000) Comment: Performed By: #### CKB, C7ED , HFP, ACTMJ, SALIJ, CA, MGO, TSH #### U [facility] ([facility]) [address] [place] [address] 60119 Segs + Bands,Absolute Auto 7.93 1.57-6.19 K/uL High [facility] (17200) Comment: Performed By: #### CKB, C7ED , HFP, ACTMJ, SALIJ, CA, MGO, TSH #### [facility] ([facility]) [address] [place] [address] 54801 WBC (Bld) [#/Vol] 10.94 3.73-10.10 K/uL High 03-29-2020 [facility] nter (34716) Comment: Performed By: #### CKB, C7ED , HFP, ACTMJ, SALIJ, CA, MGO, TSH #### U [facility] ([facility]) [address] [place] [address] 13780 No panel information on 2020-03-29 Anion gap 13 mmol/L 03-29-2020 [facility] [Moles/Vol] [facility] (49427) Chloride 107 98 - mmol/L 03-29-2020 [facility] [Moles/Vol] 108 [facility] (45305) CO2 [Moles/Vol] 26 22 - 30 mmol/L 03-29-2020 [facility] (31578) Creatinine 1.05 0.7 - mg/dL 03-29-2020 [facility] [Mass/Vol] 1.3 [facility] (72106) GFR/1.73 sq >=60 >=60 mL/min/{1. 03-29-2020 [facility] M.predicted MDRD mL/min/ 73_m2} MED ICAL (S/P/Bld) [Vol 1.73sqM CENTE R rate/Area] (62951) Glucose [Mass/Vol] 86 70 - 99 mg/dL 03-29-2020 [facility] (98354) Interpretation and Normal 03-29-2020 [facility] review of MEDICAL laboratory results [facility] (30390) Interpretation and Abnormal 03-29-2020 [facility] review of MEDICAL laboratory results [facility] (88628) Magnesium 2.1 mg/dL 03-29-2020 [facility] [Mass/Vol] [facility] (17385) Osmolality Calc 299 OTH - 03-29-2020 [facility] [Osmolality] [facility] (95350) Phosphate 3.1 2.2 - mg/dL 03-29-2020 [facility] [Mass/Vol] 4.6 [facility] (80027) Potassium 3.7 3.5 - 5 mmol/L 03-29-2020 [facility] [Moles/Vol] [facility] (10361) Sodium [Moles/Vol] 142 133 - mmol/L 03-29-2020 [facility] 143 [facility] (62307) Urea nitrogen 24 7 - 22 mg/dL High 03-29-2020 [facility] [Mass/Vol] [facility] (68281) Urea 23 mg/mg 03-29-2020 [facility] nitrogen/Creatinine [facility] [Mass ratio] [facility] (50433) User, Interfaces - 0 2:16 PM EDT EXAM: XR FLUORO MODIFIED BARIUM SWALLOW WITH SPEECH, 03/29/2020 13:29 PM 03-29-2020 [facility] MEDICAL COMPARISON: No prior barium swallow studies [facility] 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 2. Laryngeal [...] COLLIN MODIFIED BARIUM MEDI ERNST SWALLOW WITH [facility], [place] 03/29/2020 13:29 PM (20658) COMPARISON: No prior barium swallow studies available [...] Castro 03-29-2020 Domenico POLANCO 03/29/2020 2:58 PM [facility] Acute Care Speech [facility] Language Pathology ( 06929) Modified Barium Swallow Evaluation Note Swallow Therapy [...] barium consistencies: Varibar Thin Barium: teaspoon Varibar Ventana Barium: teaspoon and single cup drink Varibar [...] facemask and gloves Therapist: Hilda Cortez MA, CCC-DECKHAND License # [id number] Pager # [phone] Upon discontinuation of Acute Care Speech Therapy [...] 0 [facility] tube tip in the [facility] proximal stomach. [facility] Further advancement is (35482) recommended if postpyloric positioning is needed. User, Interfaces - 0 8:01 AM EDT EXAM: XR ABDOMEN 1 VIEW, 03/28/2020 18:12 PM 03-29-2020 [facility] MEDICAL COMPARISON: No prior abdominal radiographs available for [facility]. [facility] (56854) CLINICAL INDICATIONS: ng placement FINDINGS: Tubes: Interval [...] - {INR} 03-29-2020 [facility] [Relative time] [facility] (48674) Interpretation and Abnormal 03-29-2020 [facility] review of MEDICAL laboratory results [facility] (08753) PT Coag (PPP) 14.4 OT - s High 03-29-2020 [facility] [Time] [facility] (07685) Osmolality Calc 297 OT - 03-29-2020 [facility] [Osmolality] [facility] (77556) Phosphate 2.5 2.2 - mg/dL 03-29-2020 [facility] [Mass/Vol] 4.6 [facility] (98532) Basophils (Bld) <0.04 0 - 10*3/uL 03-29-2020 [facility] [#/Vol] 0.09 [facility] (86887) Basophils/100 WBC 0.3 % 03-29-2020 [facility] (Bld) [facility] (69456) DIFF STATUS Electronic 03-29-2020 [facility] Differential [facility] ([facility]) Eosinophils (Bld) 0.60 0 - K/uL High 03-29-2020 [facility] [#/Vol] 0.48 [facility] ([facility]) Eosinophils/100 WBC 5.5 % 03-29-2020 [facility] (Bld) [facility] ([facility]) Erythrocyte 13.5 10.9 - % 03-29-2020 [facility] distribution width 14.3 M EDICAL (RBC) [Ratio] CENTER ([facility]) Hematocrit (Bld) 41.9 39.6 - % 03-29-2020 [facility] [Volume fraction] 48.8 [facility] ([facility]) Hemoglobin (Bld) 13.6 13.4 - g/dL 03-29-2020 [facility] [Mass/Vol] 16.8 [facility] ([facility]) Immature 0.12 <=0.08 K/uL High 03-29-2020 [facility] granulocytes (Bld) M EDICAL [#/Vol] [place] ([facility]) Immature 1.1 % 03-29-2020 [facility] granulocytes/100 MED ICAL WBC (Bld) [place] ([facility]) Interpretation and Abnormal 03-29-2020 [facility] review of MEDICAL laboratory results [facility] ([facility]) Lymphocytes (Bld) 1.43 0.83 - K/uL 03-29-2020 [facility] [#/Vol] 3.57 [facility] ([facility]) Lymphocytes/100 WBC 13.1 % 03-29-2020 [facility] (Bld) [facility] ([facility]) MCH (RBC) [Entitic 29.6 26.1 - pg 03-29-2020 [facility] mass] 33.3 [facility] ([facility]) MCHC (RBC) 32.5 31.9 - g/dL 03-29-2020 [facility] [Mass/Vol] 36.5 [facility] ([facility]) MCV (RBC) [Entitic 91.1 79 - fL 03-29-2020 [facility] vol] 94.5 [facility] ([facility]) Monocytes (Bld) 0.83 0.24 - K/uL 03-29-2020 [facility] [#/Vol] 0.93 [facility] ([facility]) Monocytes/100 WBC 7.6 % 03-29-2020 [facility] (Bld) [facility] (70744) Neutrophils (Bld) 7.93 1.57 - K/uL High 03-29-2020 [facility] [#/Vol] 6.19 [facility] (35067) Nucleated RBC/100 0.0 <=0.2 % 03-29-2020 [facility] WBC (Bld) [Ratio] /100 [facility] W[facility] (29983) Platelet mean 11.7 8.7 - fL 03-29-2020 [facility] volume (Bld) 12.3 MEDICAL [Entitic vol] CENTER (75679) Platelets (Bld) 189 146 - K/uL 03-29-2020 [facility] [#/Vol] 337 [facility] (58111) RBC (Bld) [#/Vol] 4.60 OTH - 10*6/uL 03-29-2020 [facility] (24845) Segmented 72.4 % 03-29-2020 [facility] neutrophils/100 WBC [facility] (Bld) [place] (55109) WBC (Bld) [#/Vol] 10.94 3.73 - K/uL High 03-29-2020 [facility] 10.1 [facility] (30013) phosphate, inorganic on 2020-03-28 Phosphorous 2.8 2.2-4.6 mg/dL Normal 03-28-2020 [facility] (00 000) Comment: Performed By: #### CKB, C7ED , HFP, ACTMJ, SALIJ, CA, MGO, TSH #### [facility] ([facility]) [address] [place] [address] 28981 Phosphorous 3.4 2.2-4.6 mg/dL Normal 03-28-2020 [facility] (00 000) Comment: Performed By: #### CKB, C7ED , HFP, ACTMJ, SALIJ, CA, MGO, TSH #### [facility] ([facility]) [address] [place] [address] magnesium on 2019-0 03-28 Magnesium [Mass/Vol] 2.0 1.6-2.6 mg/dL Normal 0 [facility] Ce nter (30294) Comment: Performed By: #### CKB, C7ED , HFP, ACTMJ, SALIJ, CA, MGO, TSH #### [facility] ([facility]) [address] [place] [address] 87260 Magnesium [Mass/Vol] 2.1 1.6-2.6 mg/dL Normal 0 [facility] nter (52871) Comment: Performed By: #### CKB, C7ED , HFP, ACTMJ, SALIJ, CA, MGO, TSH #### [facility] ([facility]) [address] [place] [address] 93788 chem 7 (lytes,bun,crea,gluc) on 2020-03-28 Anion gap [Moles/Vol] 15 7-17 mmol/L Normal 03-28-20 [facility] nter (16382) Comment: Performed By: #### CKB, C7ED , HFP, ACTMJ, SALIJ, CA, MGO, TSH #### [facility] ([facility]) [address] [place] [address] 36618 Chloride [Moles/Vol] 107 98-108 mmol/L Normal 0 [facility] nter (52760) Comment: Performed By: #### CKB, C7ED , HFP, ACTMJ, SALIJ, CA, MGO, TSH #### [facility] ([facility]) [address] [place] [address] 20755 CO2 [Moles/Vol] 23 22-30 mmol/L Normal 03-28-2020 [facility] nter (74698) Comment: Performed By: #### CKB, C7ED , HFP, ACTMJ, SALIJ, CA, MGO, TSH #### U [facility] ([facility]) [address] [place] [address] 45716 Creatinine [Mass/Vol] 0.92 0.70-1.30 mg/dL Normal 03-28-[address] [facility] (67910) Comment: Performed By: #### CKB, C7ED , HFP, ACTMJ, SALIJ, CA, MGO, TSH #### [facility] ([facility]) [address] [place] [address] 94365 EST GFR, 60 >=60 mL/min/1.73sqM Normal 03-28-20 [facility] (46992) Comment: Performed By: #### CKB, C7ED , HFP, ACTMJ, SALIJ, CA, MGO, TSH #### [facility] ([facility]) [address] [place] [address] 47719 EST GFR,Non 60 >=60 mL/min/1.73sqM Normal 03-28 [facility] (15580) Comment: Performed By: #### CKB, C7ED , HFP, ACTMJ, SALIJ, CA, MGO, TSH #### [facility] ([facility]) [address] [place] [address] 22769 Glucose [Mass/Vol] 96 70-99 mg/dL Normal 03-28-2020 [facility] nter (03287) Comment: Performed By: #### CKB, C7ED , HFP, ACTMJ, SALIJ, CA, MGO, TSH #### [facility] ([facility]) [address] [place] [address] 50777 Osmolality [Osmolality] 297 278-305 mOsm/kg Normal 2019 [facility] (88859) Comment: Performed By: #### CKB, C7ED , HFP, ACTMJ, SALIJ, CA, MGO, TSH #### [facility] ( JO[facility]) [address] [place] [address] 00802 Potassium [Moles/Vol] 3.7 3.5-5.0 mmol/L Normal 03-28-20 [facility] (11376) Comment: Performed By: #### CKB, C7ED , HFP, ACTMJ, SALIJ, CA, MGO, TSH #### [facility] [address] [place] [address] 03394 Sodium [Moles/Vol] 141 133-143 mmol/L Normal 03-28-2020 [facility] nter (95005) Comment: Performed By: #### CKB, C7ED , HFP, ACTMJ, SALIJ, CA, MGO, TSH #### [facility] ([facility] [address] [place] [address] 96480 Urea nitrogen [Mass/Vol] 23 7-22 mg/dL High 03-28 [facility] nter (43554) Comment: Performed By: #### CKB, C7ED , HFP, ACTMJ, SALIJ, CA, MGO, TSH #### [facility] ([facility]) [address] [place] [address] 23241 Urea nitrogen/Creatinine [Mass 25 mg/mg Normal 03-28-2020 [facility] ratio] [facility] (02231) Comment: Performed By: #### CKB, C7ED , HFP, ACTMJ, SALIJ, CA, MGO, TSH #### [facility] ([facility]) [address] [place] [address] 75184 Anion gap [Moles/Vol] 16 7-17 mmol/L Normal 03-28-20 20 [facility] nter (77399) Comment: Performed By: #### CKB, C7ED , HFP, ACTMJ, SALIJ, CA, MGO, TSH #### [facility] ([facility]) [address] [place] [address] 38147 Chloride [Moles/Vol] 108 98-108 mmol/L Normal 0 [facility] nter (84844) Comment: Performed By: #### CKB, C7ED , HFP, ACTMJ, SALIJ, CA, MGO, TSH #### [facility] [address] [place] [address] 07118 CO2 [Moles/Vol] 23 22-30 mmol/L Normal 03-28-2020 [facility] nter (54440) Comment: Performed By: #### CKB, C7ED , HFP, ACTMJ, SALIJ, CA, MGO, TSH #### [facility] ([facility]) [address] [place] [address] 25480 Creatinine [Mass/Vol] 0.99 0.70-1.30 mg/dL Normal 03-28-20 [facility] (73916) Comment: Performed By: #### CKB, C7ED , HFP, ACTMJ, SALIJ, CA, MGO, TSH #### [facility] ([facility]) [address] [place] [address] 62221 EST GFR, 60 >=60 mL/min/1.73sqM Normal 03-28-20 [facility] (72060) Comment: Performed By: #### CKB, C7ED , HFP, ACTMJ, SALIJ, CA, MGO, TSH #### [facility] ([facility]) [address] [place] [address] 80049 EST GFR,Non 60 >=60 mL/min/1.73sqM Normal 03-28 [facility] (06538) Comment: Performed By: #### CKB, C7ED , HFP, ACTMJ, SALIJ, CA, MGO, TSH #### [facility] ([facility]) [address] [place] [address] 29043 Glucose [Mass/Vol] 91 70-99 mg/dL Normal 03-28-2020 [facility] nter (94445) Comment: Performed By: #### CKB, C7ED , HFP, ACTMJ, SALIJ, CA, MGO, TSH #### [facility] ([facility] [address] [place] [address] 33284 Osmolality [Osmolality] 302 278-305 mOsm/kg Normal 2019 [facility] (61425) Comment: Performed By: #### CKB, C7ED , HFP, ACTMJ, SALIJ, CA, MGO, TSH #### [facility] ([facility]) [address] [place] [address] 21178 Potassium [Moles/Vol] 3.6 3.5-5.0 mmol/L Normal 03-28-20 [facility] (03881) Comment: Performed By: #### CKB, C7ED , HFP, ACTMJ, SALIJ, CA, MGO, TSH #### [facility] ([facility]) [address] [place] [address] 89831 Sodium [Moles/Vol] 143 133-143 mmol/L Normal 03-28-2020 [facility] nter (18513) Comment: Performed By: #### CKB, C7ED , HFP, ACTMJ, SALIJ, CA, MGO, TSH #### [facility] (Dale [facility]) [address] [place] [address] 96506 Urea nitrogen [Mass/Vol] 26 7-22 mg/dL High 03-28 [facility] nter (13674) Comment: Performed By: #### CKB, C7ED , HFP, ACTMJ, SALIJ, CA, MGO, TSH #### [facility] ([facility]) [address] [place] [address] 92219 Urea nitrogen/Creatinine [Mass 26 mg/mg Normal 03-28-2020 [facility] ratio] [facility] (87323) Comment: Performed By: #### CKB, C7ED , HFP, ACTMJ, SALIJ, CA, MGO, TSH #### [facility] ([facility]) [address] [place] [address] 39526 cbc and electronic diff on 2020-03-28 Basophils (Bld) [#/Vol] 0.04 0.00-0.09 K/uL Normal 2019 [facility] (85783) Comment: Performed By: #### CKB, C7ED , HFP, ACTMJ, SALIJ, CA, MGO, TSH #### [facility] (D EFAULT) [address] [place] [address] 75958 Basophils/100 WBC (Bld) 0.3 % Normal 2019 [facility] nter (53120) Comment: Performed By: #### CKB, C7ED , HFP, ACTMJ, SALIJ, CA, MGO, TSH #### [facility] ([facility]) [address] [place] [address] 00416 DIFF STATUS Electronic Differential Normal 03-09 [facility] (33050) Comment: Performed By: #### CKB, C7ED , HFP, ACTMJ, SALIJ, CA, MGO, TSH #### [facility] ([facility]) [address] [place] [address] 34748 Eosinophils (Bld) 0.48 0.00-0.48 K/uL Normal 03-28-2020 [facility] [#/Vol] [facility] (46708) Comment: Performed By: #### CKB, C7ED , HFP, ACTMJ, SALIJ, CA, MGO, TSH #### [facility] ([facility]) [address] [place] [address] 81850 Eosinophils/100 WBC (Bld) 4.0 % Normal 03-09 [facility] nter (23431) Comment: Performed By: #### CKB, C7ED , HFP, ACTMJ, SALIJ, CA, MGO, TSH #### [facility] ([facility]) [address] [place] [address] 53186 Hematocrit (Bld) [Volume 47.3 39.6-48.8 % Normal 03-28 [facility] fraction] [facility] (97547) Comment: Performed By: #### CKB, C7ED , HFP, ACTMJ, SALIJ, CA, MGO, TSH #### [facility] ([facility]) [address] [place] [address] 54037 Hemoglobin (Bld) 15.5 13.4-16.8 g/dL Normal 03-28-2020 [facility] [Mass/Vol] [facility] (98043) Comment: Performed By: #### CKB, C7ED , HFP, ACTMJ, SALIJ, CA, MGO, TSH #### [facility] (D EFAULT) [address] [place] [address] 18394 Immature Grans % 1.5 % Normal 03-28-2020 [facility] (00 000) Comment: Performed By: #### CKB, C7ED , HFP, ACTMJ, SALIJ, CA, MGO, TSH #### [facility] ([facility]) [address] [place] [address] [id number] Immature Grans Absolute 0.18 <=0.08 K/uL High 2019 [facility] nter ([id number]) Comment: Performed By: #### CKB, C7ED , HFP, ACTMJ, SALIJ, CA, MGO, TSH #### [facility] ([facility]) [address] [place] [address] 51809 Lymphocytes (Bld) 1.63 0.83-3.57 K/uL Normal 03-28-2020 [facility] [#/Vol] [facility] ([id number]) Comment: Performed By: #### CKB, C7ED , HFP, ACTMJ, SALIJ, CA, MGO, TSH #### [facility] ([facility]) [address] [place] [address] 95662 Lymphocytes/100 WBC (Bld) 13.7 % Normal 03-09 [facility] nter ([id number]) Comment: Performed By: #### CKB, C7ED , HFP, ACTMJ, SALIJ, CA, MGO, TSH #### [facility] ([facility]) [address] [place] [address] [id number] MCV (RBC) [Entitic vol] 89.9 79.0-94.5 fL Normal 2019 [facility] ([id number]) Comment: Performed By: #### CKB, C7ED , HFP, ACTMJ, SALIJ, CA, MGO, TSH #### [facility] ([facility]) [address] [place] [address] 21005 Mean Cell Hgb 29.5 26.1-33.3 pg Normal 03-28-2020 [facility] nter ([id number]) Comment: Performed By: #### CKB, C7ED , HFP, ACTMJ, SALIJ, CA, MGO, TSH #### [facility] ([facility]) [address] [place] [address] 34191 Mean Cell Hgb Conc 32.8 31.9-36.5 g/dL Normal 03-28-2020 [facility] nter (77795) Comment: Performed By: #### CKB, C7ED , HFP, ACTMJ, SALIJ, CA, MGO, TSH #### [facility] ([facility] JOSE) [address] [place] [address] 77429 Monocytes (Bld) [#/Vol] 1.24 0.24-0.93 K/uL High 2019 [facility] (91256) Comment: Performed By: #### CKB, C7ED , HFP, ACTMJ, SALIJ, CA, MGO, TSH #### [facility] ([facility] JOSE) [address] [place] [address] 14534 Monocytes/100 WBC (Bld) 10.4 % Normal 2019 [facility] nter (02368) Comment: Performed By: #### CKB, C7ED , HFP, ACTMJ, SALIJ, CA, MGO, TSH #### U [facility] ([facility]) [address] [place] [address] 82102 Nucleated RBC (Bld) 0.0 <=0.2 /100 WBC Normal 03-28-2020 [facility] [#/Vol] [facility] (30096) Comment: Performed By: #### CKB, C7ED , HFP, ACTMJ, SALIJ, CA, MGO, TSH #### [facility] ([facility]) [address] [place] [address] 85613 Platelet mean volume 10.7 8.7-12.3 fL Normal 0 [facility] (Bld) [Entitic vol] [facility] (06038) Comment: Performed By: #### CKB, C7ED , HFP, ACTMJ, SALIJ, CA, MGO, TSH #### [facility] ([facility]) [address] [place] [address] 01153 Platelets (Bld) [#/Vol] 197 146-337 K/uL Normal 2019 [facility] (23908) Comment: Performed By: #### CKB, C7ED , HFP, ACTMJ, SALIJ, CA, MGO, TSH #### [facility] ([facility]) [address] [place] [address] 31668 RBC (Bld) [#/Vol] 5.26 4.38-5.83 M/uL Normal 03-28-2020 O [facility] nter (95179) Comment: Performed By: #### CKB, C7ED , HFP, ACTMJ, SALIJ, CA, MGO, TSH #### [facility] ([facility]) [address] [place] [address] 81826 RBC (Bld) [#/Vol] 13.5 10.9-14.3 % Normal 03-28-2020 O [facility] nter (04009) Comment: Performed By: #### CKB, C7ED , HFP, ACTMJ, SALIJ, CA, MGO, TSH #### [facility] ([facility]) [address] [place] [address] 19712 Segs + Bands Auto 70.1 % Normal 03-28-2020 O [facility] (00 000) Comment: Performed By: #### CKB, C7ED , HFP, ACTMJ, SALIJ, CA, MGO, TSH #### [facility] ([facility]) [address] [place] [address] 75579 Segs + Bands,Absolute Auto 8.37 1.57-6.19 K/uL High [facility] ical Center (74843) Comment: Performed By: #### CKB, C7ED , HFP, ACTMJ, SALIJ, CA, MGO, TSH #### [facility] ([facility] DIAZ) [address] [place] [address] WBC (Bld) [#/Vol] 11.93 3.73-10.10 K/uL High 03-28-2020 [facility] Ce nter (30906) Comment: Performed By: #### CKB, C7ED , HFP, ACTMJ, SALIJ, CA, MGO, TSH #### [facility] ([facility] DIAZ) [address] [place] [address] No panel information on 2020-03-28 Anion gap 15 7 - 17 mmol/L 03-28-2020 [facility] R [Moles/Vol] [facility] (77689) Chloride [Moles/Vol] 107 98 - 108 mmol/L 0 [facility] (98119) CO2 [Moles/Vol] 23 22 - 30 mmol/L 03-28-2020 [facility] (84658) Creatinine 0.92 0.7 - mg/dL 03-28-2020 [facility] ER [Mass/Vol] 1.3 [facility] (30448) GFR/1.73 sq >=60 >=60 mL/min/{1.7 03-28-[facility] mL/[facility]/1 3_m2} [facility] (S/P/Bld) [Vol .73sqM CENTE R rate/Area] (29412) Glucose [Mass/Vol] 96 70 - 99 mg/dL 03-28-2020 [facility] (89771) Interpretation and Normal 03-28-2020 [facility] review of laboratory MEDICAL results [place] (62699) Interpretation and Abnormal 03-28-2020 [facility] review of laboratory MEDICAL results [place] (22062) Magnesium [Mass/Vol] 2.0 1.6 - mg/dL 0 [facility] 2.6 [facility] ([facility]) Osmolality Calc 297 OTH - 03-28-2020 [facility] [Osmolality] [facility] ([facility]) Phosphate [Mass/Vol] 2.8 2.2 - mg/dL 0 [facility] 4.6 [facility] ([facility]) Potassium 3.7 3.5 - 5 mmol/L 03-28-2020 [facility] R [Moles/Vol] [facility] ([facility]) Sodium [Moles/Vol] 141 133 - mmol/L 03-28-2020 [facility] 143 [facility] ([facility]) Urea nitrogen 23 7 - 22 mg/dL High 03-28-2020 [facility] [Mass/Vol] [facility] ([facility]) Urea 25 mg/mg 03-28-2020 [facility] R nitrogen/Creatinine [facility] [Mass ratio] [place] ([facility]) Anion gap 16 7 - 17 mmol/L 03-28-2020 [facility] R [Moles/Vol] [facility] ([facility]) Chloride [Moles/Vol] 108 98 - 108 mmol/L 0 [facility] ([facility]) CO2 [Moles/Vol] 23 22 - 30 mmol/L 03-28-2020 U [facility] ([facility]) Creatinine 0.99 0.7 - mg/dL 03-28-2020 [facility] [Mass/Vol] 1.3 [facility] ([facility]) GFR/1.73 sq >=60 >=60 mL/min/{1.7 03-28-2020 [facility] M.predicted MDRD mL/min/1 3_m2} MED ICAL (S/P/Bld) [Vol .73sqM CENTE R rate/Area] ([facility]) Glucose [Mass/Vol] 91 70 - 99 mg/dL 03-28-2020 [facility] ([facility]) Interpretation and Abnormal 03-28-2020 [facility] review of laboratory MEDICAL results [place] ([facility]) Interpretation and Normal 03-28-2020 [facility] review of laboratory MEDICAL results [place] ([facility]) Magnesium [Mass/Vol] 2.1 1.6 - mg/dL 0 [facility] 2.6 [facility] ([facility]) Osmolality Calc 302 OTH - 03-28-2020 [facility] [Osmolality] OTH [facility] ([facility]) Phosphate [Mass/Vol] 3.4 2.2 - mg/dL 0 [facility] 4.6 [facility] ([facility]) Potassium 3.6 3.5 - 5 mmol/L 03-28-2020 [facility] R [Moles/Vol] [facility] ([facility]) Sodium [Moles/Vol] 143 133 - mmol/L 03-28-2020 [facility] 143 [facility] ([facility]) Urea nitrogen 26 7 - 22 mg/dL High 03-28-2020 [facility] [Mass/Vol] [facility] ([facility]) Urea 26 mg/mg 03-28-2020 [facility] R nitrogen/Creatinine MEDICAL [Mass ratio] [place] ([facility]) Basophils (Bld) <0.04 0 - 0.09 10*3/uL 03-28-2020 [facility] [#/Vol] [facility] ([facility]) Basophils/100 WBC 0.3 % 03-28-2020 [facility] (Bld) [facility] ([facility]) DIFF STATUS Electronic 03-28-2020 [facility] Differential [facility] ([facility]) Eosinophils (Bld) 0.48 0 - 0.48 K/uL 03-28-2020 [facility] [#/Vol] [facility] ([facility]) Eosinophils/100 WBC 4.0 % 03-28-2020 [facility] (Bld) [facility] ([facility]) Erythrocyte 13.5 10.9 - % 03-28-2020 [facility] distribution width 14.3 M EDICAL (RBC) [Ratio] [place] ([facility]) Hematocrit (Bld) 47.3 39.6 - % 03-28-2020 [facility] [Volume fraction] 48.8 ME DICAL [place] ([facility]) Hemoglobin (Bld) 15.5 13.4 - g/dL 03-28-2020 [facility] [Mass/Vol] 16.8 [facility] ([facility]) Immature 0.18 <=0.08 K/uL High 03-28-2020 [facility] R granulocytes (Bld) M EDICAL [#/Vol] [place] ([facility]) Immature 1.5 % 03-28-2020 [facility] R granulocytes/100 WBC MEDICAL (Bld) [place] ([facility]) Interpretation and Abnormal 03-28-2020 [facility] review of laboratory MEDICAL results [place] ([facility]) Lymphocytes (Bld) 1.63 0.83 - K/uL 03-28-2020 [facility] [#/Vol] 3.57 [facility] ([facility]) Lymphocytes/100 WBC 13.7 % 03-28-2020 [facility] (Bld) [facility] ([facility]) MCH (RBC) [Entitic 29.5 26.1 - pg 03-28-2020 [facility] mass] 33.3 [facility] ([facility]) MCHC (RBC) 32.8 31.9 - g/dL 03-28-2020 [facility] [Mass/Vol] 36.5 [facility] ([facility]) MCV (RBC) [Entitic 89.9 79 - fL 03-28-2020 [facility] vol] 94.5 [facility] ([facility]) Monocytes (Bld) 1.24 0.24 - K/uL High 03-28-2020 [facility] [#/Vol] 0.93 [facility] ([facility]) Monocytes/100 WBC 10.4 % 03-28-2020 [facility] (Bld) [facility] ([facility]) Neutrophils (Bld) 8.37 1.57 - K/uL High 03-28-2020 [facility] [#/Vol] 6.19 [facility] ([facility]) Nucleated RBC/100 0.0 <=0.2 % 03-28-2020 [facility] WBC (Bld) [Ratio] /100 WBC ME DICAL [place] ([facility]) Platelet mean volume 10.7 8.7 - fL 0 [facility] (Bld) [Entitic vol] 12.3 [facility] ([facility]) Platelets (Bld) 197 146 - K/uL 03-28-2020 [facility] [#/Vol] 337 [facility] ([facility]) RBC (Bld) [#/Vol] 5.26 OTH - 10*6/uL 03-28-2020 [facility] (21190) Segmented 70.1 % 03-28-2020 [facility]/100 W[facility] MED[facility] (Bld) CENTER (51275) WBC (Bld) [#/Vol] 11.93 3.73 - K/uL High 03-28-2020 O [facility] 10.1 MEDICAL [place] (31419) phosphate, inorganic on 2020-03-27 Phosphorous 3.4 2.2-4.6 mg/dL Normal 03-27-2020 [facility] (00 000) Comment: Performed By: #### CKB, C7ED , HFP, ACTMJ, SALIJ, CA, MGO, TSH #### [facility] ([facility]) [address] [place] [address] 95731 magnesium on 03-27 Magnesium [Mass/Vol] 2.4 1.6-2.6 mg/dL Normal 0 [facility] Ce nter (78621) Comment: Performed By: #### CKB, C7ED , HFP, ACTMJ, SALIJ, CA, MGO, TSH #### [facility] ([facility]) [address] [place] [address] 29987 chem 7 (lytes,bun,crea,gluc) on 2020-03-27 Anion gap [Moles/Vol] 13 7-17 mmol/L Normal 03-27-20 20 [facility] nter (35988) Comment: Performed By: #### CKB, C7ED , HFP, ACTMJ, SALIJ, CA, MGO, TSH #### [facility] ([facility]) [address] [place] [address] 39815 Chloride [Moles/Vol] 108 98-108 mmol/L Normal 0 [facility] nter (50841) Comment: Performed By: #### CKB, C7ED , HFP, ACTMJ, SALIJ, CA, MGO, TSH #### [facility] ([facility]) [address] [place] [address] 79853 CO2 [Moles/Vol] 23 22-30 mmol/L Normal 03-27-2020 [facility] nter (27563) Comment: Performed By: #### CKB, C7ED , HFP, ACTMJ, SALIJ, CA, MGO, TSH #### U [facility] ([facility]) [address] [place] [address] 05229 Creatinine [Mass/Vol] 0.95 0.70-1.30 mg/dL Normal 03-27-20 [facility] (36716) Comment: Performed By: #### CKB, C7ED , HFP, ACTMJ, SALIJ, CA, MGO, TSH #### [facility] ([facility]) [address] [place] [address] 57788 EST GFR, 60 >=60 mL/min/1.73sqM Normal 03-27-20 [facility] (13437) Comment: Performed By: #### CKB, C7ED , HFP, ACTMJ, SALIJ, CA, MGO, TSH #### U [facility] ([facility]) [address] [place] [address] 39410 EST GFR,Non 60 >=60 mL/min/1.73sqM Normal 03-27 [facility] (52675) Comment: Performed By: #### CKB, C7ED , HFP, ACTMJ, SALIJ, CA, MGO, TSH #### U [facility] ([facility]) [address] [place] [address] 88775 Glucose [Mass/Vol] 86 70-99 mg/dL Normal 03-27-2020 [facility] nter (85845) Comment: Performed By: #### CKB, C7ED , HFP, ACTMJ, SALIJ, CA, MGO, TSH #### U [facility] ([facility]) [address] [place] [address] 35489 Osmolality [Osmolality] 297 278-305 mOsm/kg Normal 2019 [facility] (26873) Comment: Performed By: #### CKB, C7ED , HFP, ACTMJ, SALIJ, CA, MGO, TSH #### [facility] ([facility]) [address] [place] [address] 53864 Potassium [Moles/Vol] 3.5 3.5-5.0 mmol/L Normal 03-27-20 20 [facility] (94421) Comment: Performed By: #### CKB, C7ED , HFP, ACTMJ, SALIJ, CA, MGO, TSH #### U [facility] ([facility]) [address] [place] [address] 31798 Sodium [Moles/Vol] 140 133-143 mmol/L Normal 03-27-2020 [facility] nter (87312) Comment: Performed By: #### CKB, C7ED , HFP, ACTMJ, SALIJ, CA, MGO, TSH #### [facility] ([facility]) [address] [place] [address] 48260 Urea nitrogen [Mass/Vol] 30 7-22 mg/dL High 03-27 [facility] nter (08539) Comment: Performed By: #### CKB, C7ED , HFP, ACTMJ, SALIJ, CA, MGO, TSH #### [facility] ([facility]) [address] [place] [address] 72700 Urea nitrogen/Creatinine [Mass 32 mg/mg Normal 03-27-2020 [facility] ratio] [facility] (93050) Comment: Performed By: #### CKB, C7ED , HFP, ACTMJ, SALIJ, CA, MGO, TSH #### [facility] ([facility]) [address] [place] [address] 00499 cbc and electronic diff on 2020-03-27 Basophils (Bld) [#/Vol] 0.04 0.00-0.09 K/uL Normal 2019 [facility] (17285) Comment: Performed By: #### CKB, C7ED , HFP, ACTMJ, SALIJ, CA, MGO, TSH #### [facility] (D E[facility]) [address] [place] [address] 44946 Basophils/100 WBC (Bld) 0.3 % Normal 2019 [facility] nter (15234) Comment: Performed By: #### CKB, C7ED , HFP, ACTMJ, SALIJ, CA, MGO, TSH #### [facility] [address] [place] [address] 79525 DIFF STATUS Electronic Differential Normal 03-09 [facility] (49131) Comment: Performed By: #### CKB, C7ED , HFP, ACTMJ, SALIJ, CA, MGO, TSH #### [facility] ([facility] [address] [place] [address] 06323 Eosinophils (Bld) 0.22 0.00-0.48 K/uL Normal 03-27-2020 O [facility] [#/Vol] [facility] (33829) Comment: Performed By: #### CKB, C7ED , HFP, ACTMJ, SALIJ, CA, MGO, TSH #### U [facility] ([facility]) [address] [place] [address] 32223 Eosinophils/100 WBC (Bld) 2.3 % Normal 03-09 [facility] nter (49878) Comment: Performed By: #### CKB, C7ED , HFP, ACTMJ, SALIJ, CA, MGO, TSH #### [facility] ([facility] [address] [place] [address] 06230 Hematocrit (Bld) [Volume 44.4 39.6-48.8 % Normal 03-27 [facility] fraction] [facility] (67369) Comment: Performed By: #### CKB, C7ED , HFP, ACTMJ, SALIJ, CA, MGO, TSH #### [facility] ([facility]) [address] [place] [address] 19946 Hemoglobin (Bld) 14.4 13.4-16.8 g/dL Normal 03-27-2020 [facility] [Mass/Vol] [facility] (80461) Comment: Performed By: #### CKB, C7ED , HFP, ACTMJ, SALIJ, CA, MGO, TSH #### U [facility] ( [facility]) [address] [place] [address] 45428 Immature Grans % 1.7 % Normal 03-27-2020 [facility] (00 000) Comment: Performed By: #### CKB, C7ED , HFP, ACTMJ, SALIJ, CA, MGO, TSH #### [facility] ([facility]) [address] [place] [address] 89089 Immature Grans Absolute 0.16 <=0.08 K/uL High 2019 [facility] nter (78178) Comment: Performed By: #### CKB, C7ED , HFP, ACTMJ, SALIJ, CA, MGO, TSH #### U [facility] ([facility]) [address] [place] [address] 55972 Lymphocytes (Bld) 1.05 0.83-3.57 K/uL Normal 03-27-2020 [facility] [#/Vol] [facility] (50195) Comment: Performed By: #### CKB, C7ED , HFP, ACTMJ, SALIJ, CA, MGO, TSH #### U [facility] ([facility]) [address] [place] [address] 94036 Lymphocytes/100 WBC (Bld) 11.0 % Normal 03-09 [facility] nter (65257) Comment: Performed By: #### CKB, C7ED , HFP, ACTMJ, SALIJ, CA, MGO, TSH #### [facility] ([facility]) [address] [place] [address] 35085 MCV (RBC) [Entitic vol] 90.2 79.0-94.5 fL Normal 2019 [facility] (54567) Comment: Performed By: #### CKB, C7ED , HFP, ACTMJ, SALIJ, CA, MGO, TSH #### [facility] ([facility]) [address] [place] [address] 32307 Mean Cell Hgb 29.3 26.1-33.3 pg Normal 03-27-2020 [facility] nter (62965) Comment: Performed By: #### CKB, C7ED , HFP, ACTMJ, SALIJ, CA, MGO, TSH #### [facility] ([facility]) [address] [place] [address] 44933 Mean Cell Hgb Conc 32.4 31.9-36.5 g/dL Normal 03-27-2020 [facility] nter (78756) Comment: Performed By: #### CKB, C7ED , HFP, ACTMJ, SALIJ, CA, MGO, TSH #### [facility] ([facility]) [address] [place] [address] 78909 Monocytes (Bld) [#/Vol] 0.91 0.24-0.93 K/uL Normal 2019 [facility] (33251) Comment: Performed By: #### CKB, C7ED , HFP, ACTMJ, SALIJ, CA, MGO, TSH #### [facility] ([facility]) [address] [place] [address] 57196 Monocytes/100 WBC (Bld) 9.5 % Normal 2019 [facility] nter (98693) Comment: Performed By: #### CKB, C7ED , HFP, ACTMJ, SALIJ, CA, MGO, TSH #### [facility] ([facility]) [address] [place] [address] 96119 Nucleated RBC (Bld) 0.0 <=0.2 /100 WBC Normal 03-27-2020 [facility] [#/Vol] [facility] (39588) Comment: Performed By: #### CKB, C7ED , HFP, ACTMJ, SALIJ, CA, MGO, TSH #### [facility] ([facility]) [address] [place] [address] 15905 Platelet mean volume 10.8 8.7-12.3 fL Normal 0 [facility] (Bld) [Entitic vol] [facility] (58936) Comment: Performed By: #### CKB, C7ED , HFP, ACTMJ, SALIJ, CA, MGO, TSH #### [facility] ([facility]) [address] [place] [address] 57686 Platelets (Bld) [#/Vol] 205 146-337 K/uL Normal 2019 [facility] (98150) Comment: Performed By: #### CKB, C7ED , HFP, ACTMJ, SALIJ, CA, MGO, TSH #### [facility] ([facility]) [address] [place] [address] 43827 RBC (Bld) [#/Vol] 4.92 4.38-5.83 M/uL Normal 03-27-2020 O [facility] Ce nter (53504) Comment: Performed By: #### CKB, C7ED , HFP, ACTMJ, SALIJ, CA, MGO, TSH #### [facility] ([facility]) [address] [place] [address] 06277 RBC (Bld) [#/Vol] 13.2 10.9-14.3 % Normal 03-27-2020 O [facility] nter (60510) Comment: Performed By: #### CKB, C7ED , HFP, ACTMJ, SALIJ, CA, MGO, TSH #### [facility] ([facility]) [address] [place] [address] 74072 Segs + Bands Auto 75.2 % Normal 03-27-2020 O [facility] (00 000) Comment: Performed By: #### CKB, C7ED , HFP, ACTMJ, SALIJ, CA, MGO, TSH #### [facility] ([facility] DIAZ) [address] [place] [address] Segs + Bands,Absolute Auto 7.20 1.57-6.19 K/uL High [facility] ical Center (33079) Comment: Performed By: #### CKB, C7ED , HFP, ACTMJ, SALIJ, CA, MGO, TSH #### [facility] ( JOE) [address] [place] [address] WBC (Bld) [#/Vol] 9.57 3.73-10.10 K/uL Normal 03-27-2020 [facility] Ce nter (08686) Comment: Performed By: #### CKB, C7ED , HFP, ACTMJ, SALIJ, CA, MGO, TSH #### [facility] (Dale DIAZ) [address] [place] [address] 90712 No panel information on 2020-03-27 Bacteria identified NO GROWTH DAY 5 OF 0 03-27-2020 [facility] Cx Nom (Unsp spec) 5 EDICAL [place] (94826) Anion gap [Moles/Vol] 13 7 - 17 mmol/L 03-27-20 20 [facility] ([id number]) Chloride [Moles/Vol] 108 98 - 108 mmol/L 0 [facility] ([id number]) CO2 [Moles/Vol] 23 22 - 30 mmol/L 03-27-2020 [facility] ([id number]) Creatinine [Mass/Vol] 0.95 0.7 - 1.3 mg/dL 03-27-20 [facility] ([id number]) GFR/1.73 sq >=60 >=60 mL/min/{ 03-27-2020 [facility].predicted MDRD mL/min/1. 1.73_m2} MED ICAL (S/P/Bld) [Vol 73sqM CENTE R rate/Area] ([id number]) Glucose [Mass/Vol] 86 70 - 99 mg/dL 03-27-2020 [facility] ([id number]) Interpretation and Abnormal 03-27-2020 [facility] review of laboratory MEDICAL results CENTER ([id number]) Interpretation and Normal 03-27-2020 [facility] review of laboratory MEDICAL results [place] ([facility]) Magnesium [Mass/Vol] 2.4 1.6 - 2.6 mg/dL 0 [facility] ([facility]) Osmolality Calc 297 OTH - OTH 03-27-2020 [facility] [Osmolality] [facility] ([facility]) Phosphate [Mass/Vol] 3.4 2.2 - 4.6 mg/dL 0 [facility] ([facility]) Potassium [Moles/Vol] 3.5 3.5 - 5 mmol/L 03-27-20 20 [facility] ([facility]) Sodium [Moles/Vol] 140 133 - 143 mmol/L 03-27-2020 [facility] ([facility]) Urea nitrogen 30 7 - 22 mg/dL High 03-27-2020 [facility] [Mass/Vol] [facility] ([facility]) Urea 32 mg/mg 03-27-2020 [facility] nitrogen/Creatinine MEDICAL [Mass ratio] [place] ([facility]) Basophils (Bld) <0.04 0 - 0.09 10*3/uL 03-27-2020 [facility] [#/Vol] [facility] ([facility]) Basophils/100 WBC 0.3 % 03-27-2020 [facility] (Bld) [facility] ([facility]) DIFF STATUS Electronic 03-27-2020 [facility] Differential [facility] ([facility]) Eosinophils (Bld) 0.22 0 - 0.48 K/uL 03-27-2020 [facility] [#/Vol] [facility] ([facility]) Eosinophils/100 WBC 2.3 % 03-27-2020 [facility] (Bld) [facility] ([id number]) Erythrocyte 13.2 10.9 - % 03-27-2020 [facility] distribution width 14.3 M EDICAL (RBC) [Ratio] [place] ([facility]) Hematocrit (Bld) 44.4 39.6 - % 03-27-2020 [facility] [Volume fraction] 48.8 ME DICAL [place] ([facility]) Hemoglobin (Bld) 14.4 13.4 - g/dL 03-27-2020 [facility] [Mass/Vol] 16.8 [facility] ([facility]) Immature granulocytes 0.16 <=0.08 K/uL High 03-27-20 20 [facility] (Bld) [#/Vol] [facility] ([facility]) Immature 1.7 % 03-27-2020 [facility] granulocytes/100 WBC [facility] ([facility]) [place] ([facility]) Interpretation and Abnormal 03-27-2020 [facility] review of laboratory MEDICAL results [place] ([facility]) Lymphocytes (Bld) 1.05 0.83 - K/uL 03-27-2020 [facility] [place] [#/Vol] 3.57 [facility] ([facility]) Lymphocytes/100 WBC 11.0 % 03-27-2020 [facility] (Bld) [facility] ([facility]) MCH (RBC) [Entitic 29.3 26.1 - pg 03-27-2020 [facility] mass] 33.3 [facility] ([facility]) MCHC (RBC) [Mass/Vol] 32.4 31.9 - g/dL 03-27-20 20 [facility] 36.5 [facility] ([facility]) MCV (RBC) [Entitic 90.2 79 - 94.5 fL 03-27-2020 [facility] vol] [facility] ([facility]) Monocytes (Bld) 0.91 0.24 - K/uL 03-27-2020 [facility] [#/Vol] 0.93 [facility] ([facility]) Monocytes/100 WBC 9.5 % 03-27-2020 [facility] (Bld) [facility] ([facility]) Neutrophils (Bld) 7.20 1.57 - K/uL High 03-27-2020 [facility] [place] [place] [#/Vol] 6.19 [facility] ([facility]) Nucleated RBC/100 WBC 0.0 <=0.2 % 03-27-20 [facility] (Bld) [Ratio] /100 WBC [facility] ([facility]) Platelet mean volume 10.8 8.7 - fL 0 [facility] (Bld) [Entitic vol] 12.3 [facility] ([facility]) Platelets (Bld) 205 146 - 337 K/uL 03-27-2020 [facility] [#/Vol] [facility] ([id number]) RBC (Bld) [#/Vol] 4.92 OTH - OTH 10*6/uL 03-27-2020 O [facility] ([id number]) Segmented 75.2 % 03-27-2020 [facility] neutrophils/100 WBC MEDICAL (Bld) [place] (35735) WBC (Bld) [#/Vol] 9.57 3.73 - K/uL 03-27-2020 O [facility] 10.1 [facility] ([id number]) xr abdomen 1 view portable on 2020-03-26 XR ABDOMEN 1 VIEW EXAM: XR ABDOMEN 1 VIEW PORTABLE, 03/25/2020 17:4 9 PM Normal 03-26-2020 [facility] COMPARISON: 03/25/2020 [facility] CLINICAL INDICATIONS: NG Placement [facility] FINDINGS: ([id number]) Tubes: Interval advancement of the NG tube [...] 2020-03-26 Appearance (U) Clear Clear Normal 03-26-2020 [facility] (00 000) Comment: Performed By: #### CKB, C7ED , HFP, ACTMJ, SALIJ, CA, MGO, TSH #### U [facility] ([facility] DIAZ) [address] [place] [address] 05861 Bacteria LM.HPF (Urine ABSENT ABSENT Normal 020 [facility] sed) [#/Area] [facility] (49651) Comment: Performed By: #### CKB, C7ED , HFP, ACTMJ, SALIJ, CA, MGO, TSH #### [facility] ([facility]) [address] [address] Blood Urine Large Negative Abnormal 03-26-2020 [facility] (00 000) Comment: Performed By: #### CKB, C7ED , HFP, ACTMJ, SALIJ, CA, MGO, TSH #### [facility] ([facility] D[facility]) [address] [place] [address] 11854 Color (U) Yellow Yellow Normal 03-26-2020 [facility] (00 000) Comment: Performed By: #### CKB, C7ED , HFP, ACTMJ, SALIJ, CA, MGO, TSH #### [facility] (Dale JOSE) [address] [place] [address] 36816 Glucose Ql (U) Negative Negative Normal 03-26-2020 [facility] nter (52098) Comment: Performed By: #### CKB, C7ED , HFP, ACTMJ, SALIJ, CA, MGO, TSH #### [facility] ([facility] D[facility]) [address] [place] [address] 95562 Ketones Ql (U) Trace Negative Abnormal 03-26-2020 [facility] nter (66585) Comment: Performed By: #### CKB, C7ED , HFP, ACTMJ, SALIJ, CA, MGO, TSH #### [facility] ([facility] JOSE) [address] [place] [address] 16687 Leukocyte esterase Test Negative Negative Normal 2019 [facility] strip Ql (U) [facility] (82760) Comment: Performed By: #### CKB, C7ED , HFP, ACTMJ, SALIJ, CA, MGO, TSH #### [facility] ([facility]ale JOSE) [address] [place] [address] 64589 Nitrites Urine Negative Negative Normal 03-26-2020 [facility] nter (52440) Comment: Performed By: #### CKB, C7ED , HFP, ACTMJ, SALIJ, CA, MGO, TSH #### U [facility] ([facility]ale JOSE) [address] [place] [address] 09733 pH (U) 6.0 5.0-7.0 [pH] Normal 03-26-2020 [facility] (65749) Comment: Performed By: #### CKB, C7ED , HFP, ACTMJ, SALIJ, CA, MGO, TSH #### [facility] ([facility] JOSE) [address] [place] [address] 80144 Protein (U) 30 mg/dL Negative mg/dL Abnormal 03-26-2020 [facility] [Mass/Vol] [facility] Ce nter (32021) Comment: Performed By: #### CKB, C7ED , HFP, ACTMJ, SALIJ, CA, MGO, TSH #### U [facility] ([facility]) [address] [place] [address] 91772 RBC LM.HPF (Urine sed) 03-16 0-2 Abnormal 020 [facility] [#/Area] Medical Ce nter (82300) Comment: Performed By: #### CKB, C7ED , HFP, ACTMJ, SALIJ, CA, MGO, TSH #### U [facility] ([facility] JOSE) [address] [place] [address] 41036 Specific [place] Urine 1.025 >1.001-<1.[address] [facility] (22870) Comment: Performed By: #### CKB, C7ED , HFP, ACTMJ, SALIJ, CA, MGO, TSH #### U [facility] ([facility]) [address] [place] [address] 14971 Squamous/Epithelial Cells 1/hpf = 1+ 1/hpf = 1+, Normal 0 03-26-2020 [facility] 2-5/hpf = 2+, Univer sity 0/hpf = 0+, [facility] (00 000) Comment: Performed By: #### CKB, C7ED , HFP, ACTMJ, SALIJ, CA, MGO, TSH #### U [facility] ([facility]) [address] [place] [address] 27345 Urobilinogen Urine 0.2 E.U./dL 0.2-1.0 Normal 0 [facility] (98151) Comment: Performed By: #### CKB, C7ED , HFP, ACTMJ, SALIJ, CA, MGO, TSH #### U [facility] ([facility]) [address] [place] [address] 52929 WBC LM.HPF (Urine sed) 0-5 0-5 Normal 020 [facility] [#/Area] Medical Ce nter (91037) Comment: Performed By: #### CKB, C7ED , HFP, ACTMJ, SALIJ, CA, MGO, TSH #### [facility] [address] [place] [address] 20277 phosphate, inorganic on 2020-03-26 Phosphorous 3.2 2.2-4.6 mg/dL Normal 03-26-2020 [facility] (00 000) Comment: Performed By: #### CKB, C7ED , HFP, ACTMJ, SALIJ, CA, MGO, TSH #### [facility] ([facility]) [address] [place] [address] 29562 Phosphorous 2.6 2.2-4.6 mg/dL Normal 03-26-2020 [facility] (00 000) Comment: Performed By: #### CKB, C7ED , HFP, ACTMJ, SALIJ, CA, MGO, TSH #### [facility] ([facility]) [address] [place] [address] 08279 magnesium on 03-26 Magnesium [Mass/Vol] 2.4 1.6-2.6 mg/dL Normal 0 [facility] Ce nter (32809) Comment: Performed By: #### CKB, C7ED , HFP, ACTMJ, SALIJ, CA, MGO, TSH #### U [facility] ([facility]) [address] [place] [address] 48600 Magnesium [Mass/Vol] 2.4 1.6-2.6 mg/dL Normal 0 [facility] (42111) Comment: Performed By: #### CKB, C7ED , HFP, ACTMJ, SALIJ, CA, MGO, TSH #### [facility] ([facility]) [address] [place], [place] [id number] ct chest without contrast on 2020-03-26 CT CHEST WITHOUT EXAM: CT CHEST WITHOUT CONTRAST, 03/26/2020 14:41 PM Normal 03-26-2020 [facility] CONTRAST COMPARISON: No Available Comparisons. [facility] CLINICAL INDICATIONS: unexplained lactate, gomez scan; Medical Center RELEVANT CLINICAL HISTORY: ([id number]) TECHNIQUE: Axial CT images were reconstructed from [...] CONTRAST , 03/26/2020 14:38 PM Normal 03-26-2020 [facility] WITHOUT CONTRAST COMPARISON: No prior studies available for comparison . [place] CLINICAL INDICATIONS: unexplained lactate, gomez scan; [place] TECHNIQUE: CT images of the abdomen and pelvis were pe rformed from the domes Medical of the diaphragm to the ischial tuberosities without the adm inistration of Center intravenous contrast. ([id number]) PROTOCOL: Standard. CONTRAST: iohexol (OMNIPAQUE) 300 MG/ML [...] gap [Moles/Vol] 16 7-17 mmol/L Normal 03-26-20 [facility] (84756) Comment: Performed By: #### CKB, C7ED , HFP, ACTMJ, SALIJ, CA, MGO, TSH #### [facility] ( JOE) [address] [place] [address] 71613 Chloride [Moles/Vol] 107 98-108 mmol/L Normal 0 [facility] nter (85109) Comment: Performed By: #### CKB, C7ED , HFP, ACTMJ, SALIJ, CA, MGO, TSH #### [facility] ([facility] JOSE) [address] [place] [address] 59593 CO2 [Moles/Vol] 22 22-30 mmol/L Normal 03-26-2020 [facility] nter (89282) Comment: Performed By: #### CKB, C7ED , HFP, ACTMJ, SALIJ, CA, MGO, TSH #### [facility] ([facility] JO[facility]) [address] [place] [address] 54688 Creatinine [Mass/Vol] 0.99 0.70-1.30 mg/dL Normal 03-26-20 20 [facility] (98813) Comment: Performed By: #### CKB, C7ED , HFP, ACTMJ, SALIJ, CA, MGO, TSH #### [facility] ([facility] JOSE) [address] [place] [address] 55427 EST GFR, 60 >=60 mL/min/1.73sqM Normal 03-26-20 20 [facility] (95622) Comment: Performed By: #### CKB, C7ED , HFP, ACTMJ, SALIJ, CA, MGO, TSH #### [facility] ([facility] [address] [place] [address] 22004 EST GFR,Non 60 >=60 mL/min/1.73sqM Normal 03-26 [facility] (43874) Comment: Performed By: #### CKB, C7ED , HFP, ACTMJ, SALIJ, CA, MGO, TSH #### U [facility] ([facility]) [address] [place] [address] 18655 Glucose [Mass/Vol] 74 70-99 mg/dL Normal 03-26-2020 [facility] nter (53584) Comment: Performed By: #### CKB, C7ED , HFP, ACTMJ, SALIJ, CA, MGO, TSH #### U [facility] ([facility]) [address] [place] [address] 36558 Osmolality [Osmolality] 299 278-305 mOsm/kg Normal 2019 [facility] (40765) Comment: Performed By: #### CKB, C7ED , HFP, ACTMJ, SALIJ, CA, MGO, TSH #### [facility] ([facility]) [address] [place] [address] 54355 Potassium [Moles/Vol] 4.0 3.5-5.0 mmol/L Normal 03-26-20 [facility] (05159) Comment: Performed By: #### CKB, C7ED , HFP, ACTMJ, SALIJ, CA, MGO, TSH #### [facility] ([facility]) [address] [place] [address] 73100 Sodium [Moles/Vol] 141 133-143 mmol/L Normal 03-26-2020 [facility] nter (73408) Comment: Performed By: #### CKB, C7ED , HFP, ACTMJ, SALIJ, CA, MGO, TSH #### [facility] ([facility]) [address] [place] [address] 51472 Urea nitrogen [Mass/Vol] 30 7-22 mg/dL High 03-26 [facility] nter (28730) Comment: Performed By: #### CKB, C7ED , HFP, ACTMJ, SALIJ, CA, MGO, TSH #### [facility] ([facility]) [address] [place] [address] 55510 Urea nitrogen/Creatinine [Mass 30 mg/mg Normal 03-26-2020 [facility] ratio] [facility] (41557) Comment: Performed By: #### CKB, C7ED , HFP, ACTMJ, SALIJ, CA, MGO, TSH #### U [facility] ([facility]ale EFAULT) [address] [place] [address] 19359 Anion gap [Moles/Vol] 17 7-17 mmol/L Normal 03-26-20 20 [facility] nter (16804) Comment: Performed By: #### CKB, C7ED , HFP, ACTMJ, SALIJ, CA, MGO, TSH #### [facility] ([facility] DIAZ) [address] [place] [address] 00596 Chloride [Moles/Vol] 109 98-108 mmol/L High 0 [facility] nter (58706) Comment: Performed By: #### CKB, C7ED , HFP, ACTMJ, SALIJ, CA, MGO, TSH #### [facility] ([facility] EFJOSE) [address] [place] [address] 85828 CO2 [Moles/Vol] 19 22-30 mmol/L Low 03-26-2020 [facility] (00 000) Comment: Performed By: #### CKB, C7ED , HFP, ACTMJ, SALIJ, CA, MGO, TSH #### U [facility] ([facility]) [address] [place] [address] 46369 Creatinine [Mass/Vol] 0.89 0.70-1.30 mg/dL Normal 03-26-20 20 [facility] (48013) Comment: Performed By: #### CKB, C7ED , HFP, ACTMJ, SALIJ, CA, MGO, TSH #### U [facility] ([facility]) [address] [place] [address] 32134 EST GFR, 60 >=60 mL/min/1.73sqM Normal 03-26-20 20 [facility] [place] [facility] (03658) Comment: Performed By: #### CKB, C7ED , HFP, ACTMJ, SALIJ, CA, MGO, TSH #### [facility] ([facility]) [address] [place] [address] 90349 EST GFR,Non 60 >=60 mL/min/1.73sqM Normal 03-26 [facility] (97408) Comment: Performed By: #### CKB, C7ED , HFP, ACTMJ, SALIJ, CA, MGO, TSH #### [facility] ([facility]) [address] [place] [address] 78222 Glucose [Mass/Vol] 86 70-99 mg/dL Normal 03-26-2020 [facility] nter (38086) Comment: Performed By: #### CKB, C7ED , HFP, ACTMJ, SALIJ, CA, MGO, TSH #### [facility] ([facility]) [address] [place] [address] 40755 Osmolality [Osmolality] 300 278-305 mOsm/kg Normal 2019 [facility] (90853) Comment: Performed By: #### CKB, C7ED , HFP, ACTMJ, SALIJ, CA, MGO, TSH #### [facility] ([facility]) [address] [place] [address] 64006 Potassium [Moles/Vol] 3.5 3.5-5.0 mmol/L Normal 03-26-20 [facility] (68367) Comment: Performed By: #### CKB, C7ED , HFP, ACTMJ, SALIJ, CA, MGO, TSH #### [facility] ([facility] JOSE) [address] [place] [address] 49993 Sodium [Moles/Vol] 141 133-143 mmol/L Normal 03-26-2020 [facility] nter (34799) Comment: Performed By: #### CKB, C7ED , HFP, ACTMJ, SALIJ, CA, MGO, TSH #### [facility] ([facility]) [address] [place] [address] 22410 Urea nitrogen [Mass/Vol] 32 7-22 mg/dL High 03-26 [facility] nter (93924) Comment: Performed By: #### CKB, C7ED , HFP, ACTMJ, SALIJ, CA, MGO, TSH #### [facility] ([facility]) [address] [place] [address] 75687 Urea nitrogen/Creatinine [Mass 36 mg/mg Normal 03-26-2020 [facility] ratio] [facility] (11550) Comment: Performed By: #### CKB, C7ED , HFP, ACTMJ, SALIJ, CA, MGO, TSH #### [facility] ([facility]) [address] [place] [address] 48886 cbc and electronic diff on 2020-03-26 Basophils (Bld) [#/Vol] 0.09 0.00-0.09 K/uL Normal 2019 [facility] (89765) Comment: Performed By: #### CKB, C7ED , HFP, ACTMJ, SALIJ, CA, MGO, TSH #### [facility] ([facility]) [address] [place] [address] 72597 Basophils/100 WBC (Bld) 0.6 % Normal 2019 [facility] nter (67446) Comment: Performed By: #### CKB, C7ED , HFP, ACTMJ, SALIJ, CA, MGO, TSH #### [facility] ([facility]) [address] [place] [address] 46250 DIFF STATUS Electronic Differential Normal 03-08 [facility] (80271) Comment: Performed By: #### CKB, C7ED , HFP, ACTMJ, SALIJ, CA, MGO, TSH #### [facility] ([facility]) [address] [place] [address] 11145 Eosinophils (Bld) 0.04 0.00-0.48 K/uL Normal 03-26-2020 [facility] [#/Vol] [facility] (41481) Comment: Performed By: #### CKB, C7ED , HFP, ACTMJ, SALIJ, CA, MGO, TSH #### U [facility] (D EFAULT) [address] [place] [address] 87381 Eosinophils/100 WBC (Bld) 0.3 % Normal 03-08 [facility] nter (51271) Comment: Performed By: #### CKB, C7ED , HFP, ACTMJ, SALIJ, CA, MGO, TSH #### [facility] ([facility]) [address] [place] [address] 45158 Hematocrit (Bld) [Volume 47.7 39.6-48.8 % Normal 03-26 [facility] fraction] [facility] (32820) Comment: Performed By: #### CKB, C7ED , HFP, ACTMJ, SALIJ, CA, MGO, TSH #### [facility] ([facility]) [address] [place] [address] 36196 Hemoglobin (Bld) 15.4 13.4-16.8 g/dL Normal 03-26-2020 [facility] [Mass/Vol] [facility] (27840) Comment: Performed By: #### CKB, C7ED , HFP, ACTMJ, SALIJ, CA, MGO, TSH #### [facility] ([facility]) [address] [place] [address] 91490 Immature Grans % 2.5 % Normal 03-26-2020 [facility] (00 000) Comment: Performed By: #### CKB, C7ED , HFP, ACTMJ, SALIJ, CA, MGO, TSH #### U [facility] ([facility]) [address] [place] [address] 82910 Immature Grans Absolute 0.38 <=0.08 K/uL High 2019 [facility] nter (68451) Comment: Performed By: #### CKB, C7ED , HFP, ACTMJ, SALIJ, CA, MGO, TSH #### [facility] ([facility]ale EFAULT) [address] [place] [address] 91002 Lymphocytes (Bld) 1.56 0.83-3.57 K/uL Normal 03-26-2020 [facility] [#/Vol] [facility] (00632) Comment: Performed By: #### CKB, C7ED , HFP, ACTMJ, SALIJ, CA, MGO, TSH #### [facility] ( EFAULT) [address] [place] [address] 46200 Lymphocytes/100 WBC (Bld) 10.4 % Normal 03-08 [facility] nter (74124) Comment: Performed By: #### CKB, C7ED , HFP, ACTMJ, SALIJ, CA, MGO, TSH #### [facility] ([facility] JOSE) [address] [place] [address] 13535 MCV (RBC) [Entitic vol] 92.1 79.0-94.5 fL Normal 2019 [facility] (67707) Comment: Performed By: #### CKB, C7ED , HFP, ACTMJ, SALIJ, CA, MGO, TSH #### [facility] ([facility]ale EFJOSE) [address] [place] [address] 90362 Mean Cell Hgb 29.7 26.1-33.3 pg Normal 03-26-2020 [facility] nter (47152) Comment: Performed By: #### CKB, C7ED , HFP, ACTMJ, SALIJ, CA, MGO, TSH #### [facility] [address] [place] [address] 60206 Mean Cell Hgb Conc 32.3 31.9-36.5 g/dL Normal 03-26-2020 [facility] nter (18722) Comment: Performed By: #### CKB, C7ED , HFP, ACTMJ, SALIJ, CA, MGO, TSH #### [facility] ([facility]) [address] [place] [address] 78464 Monocytes (Bld) [#/Vol] 1.40 0.24-0.93 K/uL High 2019 [facility] (77880) Comment: Performed By: #### CKB, C7ED , HFP, ACTMJ, SALIJ, CA, MGO, TSH #### [facility] ([facility]) [address] [place] [address] 41473 Monocytes/100 WBC (Bld) 9.3 % Normal 2019 [facility] nter (87960) Comment: Performed By: #### CKB, C7ED , HFP, ACTMJ, SALIJ, CA, MGO, TSH #### [facility] ([facility]) [address] [place] [address] 06810 Nucleated RBC (Bld) 0.3 <=0.2 /100 WBC High 03-26-2020 [facility] [#/Vol] [facility] (50082) Comment: Performed By: #### CKB, C7ED , HFP, ACTMJ, SALIJ, CA, MGO, TSH #### [facility] ([facility]) [address] [place] [address] 18566 Platelet mean volume 10.1 8.7-12.3 fL Normal 0 [facility] (Bld) [Entitic vol] [facility] (15193) Comment: Performed By: #### CKB, C7ED , HFP, ACTMJ, SALIJ, CA, MGO, TSH #### [facility] ([facility]) [address] [place] [address] 24489 Platelets (Bld) [#/Vol] 229 146-337 K/uL Normal 2019 [facility] (28440) Comment: Performed By: #### CKB, C7ED , HFP, ACTMJ, SALIJ, CA, MGO, TSH #### [facility] ([facility]) [address] [place] [address] [id number] RBC (Bld) [#/Vol] 13.0 10.9-14.3 % Normal 03-26-2020 O [facility] nter ([id number]) Comment: Performed By: #### CKB, C7ED , HFP, ACTMJ, SALIJ, CA, MGO, TSH #### [facility] ([facility]) [address] [place] [address] [id number] RBC (Bld) [#/Vol] 5.18 4.38-5.83 M/uL Normal 03-26-2020 O [facility] nter ([id number]) Comment: Performed By: #### CKB, C7ED , HFP, ACTMJ, SALIJ, CA, MGO, TSH #### [facility] ([facility]) [address] [place] [id number] [employer] 76.9 % Normal 03-26-2020 O [facility] (00 000) Comment: Performed By: #### CKB, C7ED , HFP, ACTMJ, SALIJ, CA, MGO, TSH #### [facility] (Dale JOSE) [address] [place] [address] 32485 Segs + Bands,Absolute Auto 11.55 1.57-6.19 K/uL High [facility] (77045) Comment: Performed By: #### CKB, C7ED , HFP, ACTMJ, SALIJ, CA, MGO, TSH #### [facility] (Dale JOSE) [address] [place] [address] 06828 WBC (Bld) [#/Vol] 15.02 3.73-10.10 K/uL High 03-26-2020 [facility] nter (70976) Comment: Performed By: #### CKB, C7ED , HFP, ACTMJ, SALIJ, CA, MGO, TSH #### [facility] ([facility]) [address] [place] [address] 60120 No panel information on 2020-03-26 Anion gap 16 7 - 17 mmol/L 03-26-2020 [facility] [Moles/Vol] [facility] ([id number]) Chloride 107 98 - 108 mmol/L 03-26-2020 [facility] [Moles/Vol] [facility] ([facility]) CO2 [Moles/Vol] 22 22 - 30 mmol/L 03-26-2020 [facility] ([facility]) Creatinine 0.99 0.7 - 1.3 mg/dL 03-26-2020 [facility] [Mass/Vol] [facility] ([facility]) GFR/1.73 sq >=60 >=60 mL/min/{1 03-26-2020 [facility] M.predicted MDRD mL/min/1.73 .73_m2} [facility] (S/P/Bld) [Vol sqM MEDIC AL rate/Area] [place] ([facility]) Glucose 74 70 - 99 mg/dL 03-26-2020 [facility] [Mass/Vol] [facility] ([facility]) Interpretation Abnormal 03-26-2020 [facility] and review of [facility] laboratory [facility] results [place] ([facility]) Interpretation Normal 03-26-2020 [facility] review of [facility] laboratory [facility] results [place] ([facility]) Magnesium 2.4 1.6 - 2.6 mg/dL 03-26-2020 [facility] [Mass/Vol] [facility] ([facility]) Osmolality Calc 299 OTH - OTH 03-26-2020 [facility] [Osmolality] [facility] ([facility]) Phosphate 3.2 2.2 - 4.6 mg/dL 03-26-2020 [facility] [Mass/Vol] [facility] ([id number]) Potassium 4.0 3.5 - 5 mmol/L 03-26-2020 [facility] [Moles/Vol] [facility] ([id number]) Sodium 141 133 - 143 mmol/L 03-26-2020 [facility] [Moles/Vol] [facility] ([facility]) Urea nitrogen 30 7 - 22 mg/dL High 03-26-2020 [facility] [Mass/Vol] [facility] ([facility]) Urea 30 mg/mg 03-26-2020 [facility] nitrogen/Creatini [facility] ne [Mass ratio] [facility] ([facility]) Appearance (U) Clear Clear 03-26-2020 [facility] ([id number]) Bacteria LM Ql ABSENT ABSENT 03-26-2020 [facility] (Urine sed) [facility] ([facility]) Color (U) Yellow Yellow 03-26-2020 [facility] ([id number]) Glucose Test Negative Negative 03-26-2020 [facility] strip (U) [facility] [Mass/Vol] [facility] ([facility]) Interpretation Abnormal 03-26-2020 [facility] and review of [facility] laboratory MEDICAL results [place] ([facility]) Ketones (U) Trace Negative Abnormal 03-26-2020 [facility] [Mass/Vol] [facility] ([id number]) Leukocyte Negative Negative 03-26-2020 [facility] esterase Test [facility] strip Ql (U) [facility] ([facility]) Nitrite Ql (U) Negative Negative 03-26-2020 [facility] ([facility]) pH (U) 6.0 5.0 - 7.0 [pH] 03-26-2020 [facility] ([facility]) Protein (U) 30 mg/dL Negative mg/dL Abnormal 03-26-2020 [facility] [Mass/Vol] [facility] (82358) RBC (U) [#/Vol] Large Negative Abnormal 03-26-2020 [facility] ([id number]) RBC LM.HPF (Urine 6-9 0 - 2 /HPF Abnormal 03-26-2020 [facility] sed) [#/Area] [facility] ([facility]) Specific gravity 1.025 OTH - OTH 03-26-2020 [facility] U (U) [Rel density] [facility] ([facility]) Squamous/Epitheli 1/hpf = 1+ 1/hpf = 1+, 0 [facility] al Cells 2-5/hpf = [facility] 2+, 0/hpf = MEDICAL 0+, ABSENT [place] ([id number]) Urobilinogen (U) 0.2 E.U./dL 0.2 - 1.0 03-26-2020 [facility] [Mass/Vol] [facility] (92341) WBC LM.HPF (Urine 0-5 0 - 5 /HPF 03-26-2020 [facility] sed) [#/Area] [facility] ([facility]) User, Interfaces - 0 5:14 PM EDT EXAM: CT ABDOMEN/PELVIS WITHOUT CONTRAST, 03/26/2020 14:38 PM 03-26-2020 [facility] COMPARISON: No prior studies available for comparison. [facility] CENTER CLINICAL INDICATIONS: unexplained lactate, gomez scan; ([id number]) TECHNIQUE: CT images of the abdomen and [...] ERNST findings to explain CENTER the patient's (98340 ) abdominal pain. 2. No bowel obstruction [...] L dependent CENTER atelectasis in the ( 05868) posterior left lung and generalized underaeration of the lung bases 2. No mass or lymphadenopathy. 3. Generalized calcified atherosclerotic disease of the coronary arteries. Dilated ascending thoracic aorta at 4.3 cm. : CT CHEST 03-26-2020 [facility] WITHOUT CONTRAST, [facility] 03/26/2020 14:41 PM MEDICAL COMPARISON: No CENTE R Available ([id number]) Comparisons. CLINICAL INDICATIONS: unexplained lactate, gomez scan; [...] 03-26-2020 [facility] COMPARISON: No Available Comparisons. [facility] CENTER CLINICAL INDICATIONS: unexplained lactate, gomez scan; (06725) RELEVANT CLINICAL HISTORY: TECHNIQUE: Axial CT images [...] Interpretation Normal 03-26-2020 [facility] and review of [facility] laboratory MEDICAL results CENTER ([id number]) Magnesium 2.4 1.6 - 2.6 mg/dL 03-26-2020 [facility] [Mass/Vol] [facility] (25391) Phosphate 2.6 2.2 - 4.6 mg/dL 03-26-2020 [facility] [Mass/Vol] [facility] (82650) EXAM: XR ABDOMEN 1 03-26-2020 [facility] VIEW PORTABLE, [employer] R 03/25/2020 17:49 PM MEDICAL COMPARISON: [place] 03/25/2020 CLINICAL ( [id number]) INDICATIONS: NG Placement FINDINGS: Tubes: Interval advancement [...] VIEW PORTABLE, 03/25/2020 17:49 PM 03-26-2020 [facility] COMPARISON: 03/25/2020 [facility] CLINICAL INDICATIONS: NG Placement ([id number]) FINDINGS: Tubes: Interval advancement of the NG [...] 7 - 17 mmol/L 03-26-2020 [facility] [Moles/Vol] [facility] (50506) Chloride 109 98 - 108 mmol/L High 03-26-2020 [facility] [Moles/Vol] [facility] (22138) CO2 [Moles/Vol] 19 22 - 30 mmol/L Low 03-26-2020 [facility] (09184) Creatinine 0.89 0.7 - 1.3 mg/dL 03-26-2020 [facility] [Mass/Vol] [facility] (86418) GFR/1.73 sq >=60 >=60 mL/min/{1 03-26-2020 [facility] M.predicted MDRD mL/min/1.73 .73_m2} [facility] (S/P/Bld) [Vol sqM MEDIC AL rate/Area] CENTER (07980) Glucose 86 70 - 99 mg/dL 03-26-2020 [facility] [Mass/Vol] [facility] (54106) Interpretation Abnormal 03-26-2020 [facility] and review of [facility] laboratory MEDICAL results [place] ([facility]) Osmolality Calc 300 OTH - OTH 03-26-2020 [facility] [Osmolality] [facility] ([facility]) Potassium 3.5 3.5 - 5 mmol/L 03-26-2020 [facility] [Moles/Vol] [facility] (39182) Sodium 141 133 - 143 mmol/L 03-26-2020 [facility] [Moles/Vol] [facility] (93817) Urea nitrogen 32 7 - 22 mg/dL High 03-26-2020 [facility] [Mass/Vol] [facility] (16158) Urea 36 mg/mg 03-26-2020 [facility] nitrogen/Creatini [facility] ne [Mass ratio] [facility] (15643) Basophils (Bld) 0.09 0 - 0.09 K/uL 03-26-2020 [facility] [#/Vol] [facility] (56206) Basophils/100 WBC 0.6 % 03-26-2020 O [facility] (Bld) [facility] ([facility]) DIFF STATUS Electronic 03-26-2020 [facility] Differential [facility] ([facility]) Eosinophils (Bld) 0.04 0 - 0.48 K/uL 03-26-2020 O [place] [#/Vol] [facility] ([facility]) Eosinophils/100 0.3 % 03-26-2020 [facility] WBC (Bld) [facility] ([facility]) Erythrocyte 13.0 10.9 - 14.3 % 03-26-2020 [facility] distribution [facility] width (RBC) MEDICAL [Ratio] [place] ([id number]) Hematocrit (Bld) 47.7 39.6 - 48.8 % 03-26-2020 [facility] [Volume fraction] [facility] ([facility]) Hemoglobin (Bld) 15.4 13.4 - 16.8 g/dL 03-26-2020 [facility] [Mass/Vol] [facility] (89801) Immature 0.38 <=0.08 K/uL High 03-26-2020 [facility] granulocytes [facility] (Bl) [#/Vol] [facility] (15759) Immature 2.5 % 03-26-2020 [facility] granulocytes/100 [facility] NER WBC (Bld) [facility] ([facility]) Interpretation Abnormal 03-26-2020 [facility] and review of [facility] laboratory MEDICAL results [place] ([facility]) Lymphocytes (Bld) 1.56 0.83 - 3.57 K/uL 03-26-2020 [facility] [#/Vol] [facility] ([facility]) Lymphocytes/100 10.4 % 03-26-2020 [facility] WBC (Bld) [facility] ([facility]) MCH (RBC) 29.7 26.1 - 33.3 pg 03-26-2020 [facility] [Entitic mass] [facility] (36127) MCHC (RBC) 32.3 31.9 - 36.5 g/dL 03-26-2020 [facility] [Mass/Vol] [facility] (98470) MCV (RBC) 92.1 79 - 94.5 fL 03-26-2020 [facility] [Entitic vol] [facility] (29224) Monocytes (Bld) 1.40 0.24 - 0.93 K/uL High 03-26-2020 O [place] [#/Vol] [facility] (47789) Monocytes/100 WBC 9.3 % 03-26-2020 O [facility] (Bld) [facility] ([facility]) Neutrophils (Bld) 11.55 1.57 - 6.19 K/uL High 03-26-2020 [facility] [#/Vol] [facility] (87920) Nucleated RBC/100 0.3 <=0.2 /100 % High 03-26-2020 [facility] WBC (Bld) [Ratio] WBC [facility] ([facility]) Platelet mean 10.1 8.7 - 12.3 fL 03-26-2020 [facility] volume (Bld) [facility] [Entitic vol] [facility] (51430) Platelets (Bld) 229 146 - 337 K/uL 03-26-2020 [facility] [#/Vol] [facility] (12596) RBC (Bld) [#/Vol] 5.18 OTH - OTH 10*6/uL 03-26-2020 O DAWSON [facility] ([facility]) Segmented 76.9 % 03-26-2020 [facility] neutrophils/100 [facility] WBC (Bld) [facility] (86730) WBC (Bld) [#/Vol] 15.02 3.73 - 10.1 K/uL High 03-26-2020 [facility] (84849) xr abdomen 1 view portable on 2020-03-25 XR ABDOMEN 1 VIEW EXAM: XR ABDOMEN 1 VIEW PORTABLE, 03/25/2020 16:1 4 PM Normal 03-25-2020 [facility] COMPARISON: No prior abdominal radiographs available f or comparison. [facility] CLINICAL INDICATIONS: [facility] FINDINGS: (85581) Tubes: An enteric tube overlies the prox [...] WITHOUT CONTRAST, 0 00:06 AM Normal 03-25-2020 [facility] AND WITHOUT COMPARISON: Head CT March 21, 2020. [facility] CONTRAST CLINICAL INDICATIONS: 64 yea rs Male altered mental status; al [facility] hypointensity in R BG; (16640) RELEVANT CLINICAL HISTORY: TECHNIQUE: A series of [...] Calculated LDL Cholesterol 126 0-99 mg/dL High [facility] (39734) Comment: Result Comment: [<100 mg/dL: Optimal] [100-129 mg/dL: Near Optimal ] [130-159 mg/dL: Borderline H igh] [160-189 mg/dL: High] [>189 mg/dL: Very High] Performed By: #### CKB, C7ED , HFP, ACTMJ, SALIJ, CA, MGO, TSH #### [facility] (Dale DIAZ) [address] [place] [address] 49723 Cholesterol [Mass/Vol] 191 <200 mg/dL Normal 020 [facility] nter (10337) Comment: Result Comment: [<200 mg/dL: Desirable] [200-239 mg/dL: Borderline H igh] [>239 mg/dL: High] Performed By: #### CKB, C7ED , HFP, ACTMJ, SALIJ, CA, MGO, TSH #### [facility] ([place]ale DIAZ) [address] [place] [address] 31719 Cholesterol in HDL [Mass/Vol] 32 >=40 mg/dL Low 03-25-2020 [facility] (76640) Comment: Result Comment: [<40 mg/dL: Low (High Risk)] [>59 mg/dL: High (Low Risk)] Performed By: #### CKB, C7ED , HFP, ACTMJ, SALIJ, CA, MGO, TSH #### [facility] ([place]ale DIAZ) [address] [place] [address] 98340 Non HDL Cholesterol 159 <130 mg/dL High 03-25-2020 [facility] nter (39842) Comment: Performed By: #### CKB, C7ED , HFP, ACTMJ, SALIJ, CA, MGO, TSH #### U [facility] ([place]ale DIAZ) [address] [place] [address] 79279 Total Cholesterol/HDL Ratio 6.0 <4.5 High [facility] nter (18429) Comment: Performed By: #### CKB, C7ED , HFP, ACTMJ, SALIJ, CA, MGO, TSH #### [facility] ([place] DIAZ) [address] [place] [address] 23873 Triglyceride [Mass/Vol] 166 <150 mg/dL High 2019 [facility] nter (28333) Comment: Result Comment: [<150 mg/dL: Desirable] [150-199 mg/dL: Borderline] [200-499 mg/dL: High] [>500 mg/dL: Very High] Performed By: #### CKB, C7ED , HFP, ACTMJ, SALIJ, CA, MGO, TSH #### [facility] ([place]) [address] [place] [address] 65960 lactate, blood on Lactate, Blood 2.2 0.5-1.6 mmol/L High 03-25-2020 [facility] nter (09260) Comment: Performed By: #### CKB, C7ED , HFP, ACTMJ, SALIJ, CA, MGO, TSH #### [facility] ([place] D[place]Z) [address] [place] [address] 52982 hemoglobin a1c on HbA1c (Bld) [Mass 5.6 4.7-5.6 % Normal 03-25-2020 [facility] fraction] [facility] (29018) Comment: Performed By: #### CKB, C7ED , HFP, ACTMJ, SALIJ, CA, MGO, TSH #### [facility] ([facility]) [address] [place] [address] 90813 HbA1c (Bld) [Mass fraction] 114 mg/dL Normal [facility] nter (29921) Comment: Performed By: #### CKB, C7ED , HFP, ACTMJ, SALIJ, CA, MGO, TSH #### [facility] ([facility]) [address] [place] [address] 53227 chem 7 (lytes,bun,crea,gluc) on 2020-03-25 Anion gap [Moles/Vol] 13 7-17 mmol/L Normal 03-25-20 [facility] nter (42643) Comment: Performed By: #### CKB, C7ED , HFP, ACTMJ, SALIJ, CA, MGO, TSH #### [facility] ([facility]) [address] [place] [address] 05801 Chloride [Moles/Vol] 106 98-108 mmol/L Normal 0 [facility] nter (08374) Comment: Performed By: #### CKB, C7ED , HFP, ACTMJ, SALIJ, CA, MGO, TSH #### [facility] ([facility]) [address] [place] [address] 47785 CO2 [Moles/Vol] 23 22-30 mmol/L Normal 03-25-2020 [facility] (63298) Comment: Performed By: #### CKB, C7ED , HFP, ACTMJ, SALIJ, CA, MGO, TSH #### [facility] ([facility]) [address] [place] [address] 42192 Creatinine [Mass/Vol] 0.93 0.70-1.30 mg/dL Normal 03-25-[address] [facility] (08678) Comment: Performed By: #### CKB, C7ED , HFP, ACTMJ, SALIJ, CA, MGO, TSH #### [facility] ([facility]) [address] [place] [address] EST GFR, 60 >=60 mL/min/1.73sqM Normal 03-25-20 [facility] (42995) Comment: Performed By: #### CKB, C7ED , HFP, ACTMJ, SALIJ, CA, MGO, TSH #### U [facility] ([place] DIAZ) [address] [place] [address] 80904 EST GFR,Non 60 >=60 mL/min/1.73sqM Normal 03-25 [facility] (89522) Comment: Performed By: #### CKB, C7ED , HFP, ACTMJ, SALIJ, CA, MGO, TSH #### U [facility] ([place]) [address] [place] [address] 28312 Glucose [Mass/Vol] 121 70-99 mg/dL High 03-25-2020 [facility] nter (46562) Comment: Performed By: #### CKB, C7ED , HFP, ACTMJ, SALIJ, CA, MGO, TSH #### U [facility] ([place]) [address] [place] [address] 48670 Osmolality [Osmolality] 297 278-305 mOsm/kg Normal 2019 [facility] (17846) Comment: Performed By: #### CKB, C7ED , HFP, ACTMJ, SALIJ, CA, MGO, TSH #### U [facility] ([place]) [address] [place] [address] 17578 Potassium [Moles/Vol] 4.1 3.5-5.0 mmol/L Normal 03-25-20 [facility] (21595) Comment: Performed By: #### CKB, C7ED , HFP, ACTMJ, SALIJ, CA, MGO, TSH #### U [facility] ([place]) [address] [place] [address] 93007 Sodium [Moles/Vol] 138 133-143 mmol/L Normal 03-25-2020 [facility] (37958) Comment: Performed By: #### CKB, C7ED , HFP, ACTMJ, SALIJ, CA, MGO, TSH #### [facility] ([place]) [address] [place] [address] 02070 Urea nitrogen [Mass/Vol] 30 7-22 mg/dL High 03-25 [facility] nter (69631) Comment: Performed By: #### CKB, C7ED , HFP, ACTMJ, SALIJ, CA, MGO, TSH #### [facility] ([place]) [address] [place] [address] 57424 Urea nitrogen/Creatinine [Mass 32 mg/mg Normal 03-25-2020 [facility] ratio] [facility] (18548) Comment: Performed By: #### CKB, C7ED , HFP, ACTMJ, SALIJ, CA, MGO, TSH #### [facility] ([place]) [address] [place] [address] 30177 cbc and electronic diff on 2020-03-25 Basophils (Bld) [#/Vol] 0.04 0.00-0.09 K/uL Normal 2019 [facility] (54534) Comment: Performed By: #### CKB, C7ED , HFP, ACTMJ, SALIJ, CA, MGO, TSH #### [facility] ([place]) [address] [place] [address] 24640 Basophils/100 WBC (Bld) 0.3 % Normal 2019 [facility] nter (89991) Comment: Performed By: #### CKB, C7ED , HFP, ACTMJ, SALIJ, CA, MGO, TSH #### [facility] ([place]) [address] [place] [address] 74276 DIFF STATUS Electronic Differential Normal 03-08 [facility] (15886) Comment: Performed By: #### CKB, C7ED , HFP, ACTMJ, SALIJ, CA, MGO, TSH #### [facility] ([facility]) [address] [place] [address] 55342 Eosinophils (Bld) 0.04 0.00-0.48 K/uL Normal 03-25-2020 O [facility] [#/Vol] [facility] (92274) Comment: Performed By: #### CKB, C7ED , HFP, ACTMJ, SALIJ, CA, MGO, TSH #### [facility] ([facility]) [address] [place] [address] 44568 Eosinophils/100 WBC (Bld) 0.1 % Normal 03-08 [facility] nter (09080) Comment: Performed By: #### CKB, C7ED , HFP, ACTMJ, SALIJ, CA, MGO, TSH #### [facility] ([facility]) [address] [place] [address] 15155 Hematocrit (Bld) [Volume 42.5 39.6-48.8 % Normal 03-25 [facility] fraction] [facility] (05870) Comment: Performed By: #### CKB, C7ED , HFP, ACTMJ, SALIJ, CA, MGO, TSH #### [facility] ([facility]) [address] [place] [address] 69809 Hemoglobin (Bld) 13.9 13.4-16.8 g/dL Normal 03-25-2020 [facility] [Mass/Vol] [facility] (08048) Comment: Performed By: #### CKB, C7ED , HFP, ACTMJ, SALIJ, CA, MGO, TSH #### U [facility] ([facility]) [address] [place] [address] 80424 Immature Grans % 2.6 % Normal 03-25-2020 [facility] (00 000) Comment: Performed By: #### CKB, C7ED , HFP, ACTMJ, SALIJ, CA, MGO, TSH #### [facility] ([facility]) [address] [place] [address] 44396 Immature Grans Absolute 0.36 <=0.08 K/uL High 2019 [facility] nter (66588) Comment: Performed By: #### CKB, C7ED , HFP, ACTMJ, SALIJ, CA, MGO, TSH #### U [facility] ([place] D[place]) [address] [place] [address] 45381 Lymphocytes (Bld) 0.94 0.83-3.57 K/uL Normal 03-25-2020 [facility] [#/Vol] [facility] (38814) Comment: Performed By: #### CKB, C7ED , HFP, ACTMJ, SALIJ, CA, MGO, TSH #### [place] [facility] ([place] D[place]) [address] [place] [address] 42261 Lymphocytes/100 WBC (Bld) 6.8 % Normal 03-08 [facility] nter (06921) Comment: Performed By: #### CKB, C7ED , HFP, ACTMJ, SALIJ, CA, MGO, TSH #### [place] [facility] ([place]) [address] [place] [address] 68185 MCV (RBC) [Entitic vol] 90.6 79.0-94.5 fL Normal 2019 [facility] (49376) Comment: Performed By: #### CKB, C7ED , HFP, ACTMJ, SALIJ, CA, MGO, TSH #### [place] [facility] ([place]) [address] [place] [address] 50174 Mean Cell Hgb 29.6 26.1-33.3 pg Normal 03-25-2020 [facility] nter (03429) Comment: Performed By: #### CKB, C7ED , HFP, ACTMJ, SALIJ, CA, MGO, TSH #### U [facility] ([place]) [address] [place] [address] 73226 Mean Cell Hgb Conc 32.7 31.9-36.5 g/dL Normal 03-25-2020 [facility] nter (78277) Comment: Performed By: #### CKB, C7ED , HFP, ACTMJ, SALIJ, CA, MGO, TSH #### U [facility] [address] [place] [address] [phone] Monocytes (Bld) [#/Vol] 0.64 0.24-0.93 K/uL Normal 2019 [facility] ([id number]) Comment: Performed By: #### CKB, C7ED , HFP, ACTMJ, SALIJ, CA, MGO, TSH #### [facility] ([facility]) [address] [place] [address] [phone] Monocytes/100 WBC (Bld) 4.6 % Normal 2019 [facility] nter ([id number]) Comment: Performed By: #### CKB, C7ED , HFP, ACTMJ, SALIJ, CA, MGO, TSH #### [facility] ([facility]) [address] [place] [address] [phone] Nucleated RBC (Bld) 0.1 <=0.2 /100 WBC Normal 03-25-2020 [facility] [#/Vol] [facility] ([id number]) Comment: Performed By: #### CKB, C7ED , HFP, ACTMJ, SALIJ, CA, MGO, TSH #### U [facility] ([facility]) [address] [place] [address] [id number] Platelet mean volume 10.5 8.7-12.3 fL Normal 0 [facility] (Bld) [Entitic vol] [facility] ([id number]) Comment: Performed By: #### CKB, C7ED , HFP, ACTMJ, SALIJ, CA, MGO, TSH #### U [facility] ([facility]) [address] [place] [phone] Platelets (Bld) [#/Vol] 217 146-337 K/uL Normal 2019 [facility] ([id number]) Comment: Performed By: #### CKB, C7ED , HFP, ACTMJ, SALIJ, CA, MGO, TSH #### [facility] ([facility]) [address] [place] [address] 38374 RBC (Bld) [#/Vol] 4.69 4.38-5.83 M/uL Normal 03-25-2020 O [facility] nter ([id number]) Comment: Performed By: #### CKB, C7ED , HFP, ACTMJ, SALIJ, CA, MGO, TSH #### [facility] ([facility]) [address] [place] [address] 50567 RBC (Bld) [#/Vol] 13.1 10.9-14.3 % Normal 03-25-2020 O [facility] nter ([id number]) Comment: Performed By: #### CKB, C7ED , HFP, ACTMJ, SALIJ, CA, MGO, TSH #### [facility] ([facility]) [address] [place] [address] 57448 Segs + Bands Auto 85.6 % Normal 03-25-2020 O [facility] (00 000) Comment: Performed By: #### CKB, C7ED , HFP, ACTMJ, SALIJ, CA, MGO, TSH #### [facility] ([facility]) [address] [place] [address] 65626 Segs + Bands,Absolute Auto 11.90 1.57-6.19 K/uL High [facility] ([id number]) Comment: Performed By: #### CKB, C7ED , HFP, ACTMJ, SALIJ, CA, MGO, TSH #### [facility] ([facility]) [address] [place] [address] 22016 WBC (Bld) [#/Vol] 13.89 3.73-10.10 K/uL High 03-25-2020 [facility] nter ([id number]) Comment: Performed By: #### CKB, C7ED , HFP, ACTMJ, SALIJ, CA, MGO, TSH #### [facility] ([facility]) [address] [place] [address] 58654 No panel information on 2020-03-25 Bacteria identified No Growth 03-25-2020 [facility] Cx Nom (Unsp spec) M [facility] ([id number]) IMPRESSION: Side port 03-25-20 20 [facility] of the enteric tube MEDICAL is at the GE CENTER junction. Recommend ([id number]) advancement of 5 to 7 cm. : XR ABDOMEN 1 03-25-2020 [facility] PORT[facility], MEDIC AL 03/25/2020 16:14 PM CENTER COMPARISON: No prior ([id number]) abdominal radiographs available for comparison. CLINICAL INDICATIONS: [...] abdominal radiographs available for com paris. CENTER ([id number]) CLINICAL INDICATIONS: NG Placement FINDINGS: Tubes: An [...] Ao peak carter 1.24 m/s 03-25-2020 [facility] ([id number]) Ascending aorta 3.42 cm 03-25-2020 [facility] (07969) AV LVOT peak 3 mmHg 03-25-2020 [facility] ([id number]) AV peak gradient 6 mmHG 03-25-2020 OS [facility] ([id number]) AV Velocity Ratio 0.67 03-25-2020 O [facility] ([facility]) LINH (continuity 2.76 cm2 03-25-2020 [facility] DI (Vmax) 0.67 03-25-2020 [facility] ([facility]) E/A ratio 1.59 03-25-2020 [facility] ([facility]) FS 38 28 - 44 % 03-25-2020 [facility] ([facility]) Interpretation and Abnormal 03-25-2020 [facility] review of MEDICAL laboratory results C ENTER ([facility]) IVS 1.13 0.6 - cm Abnormal 03-25-[address] ([facility]) LV mass 166.51 g 03-25-2020 [facility] ([facility]) LV RWT 0.60 03-25-2020 [facility] ([facility]) LVIDD 4.10 4 - 100 cm 03-25-2020 [facility] ([facility]) LVIDS 2.53 2.1 - 4 cm 03-25-2020 [facility] ([facility]) LVOT area 4.12 cm2 03-25-2020 [facility] ([facility]) LVOT diameter 2.29 cm 03-25-2020 [facility] ([facility]) LVOT peak carter 0.83 m/s 03-25-2020 [facility] MV Peak A Carter 0.69 m/s 03-25-2020 [facility] MV Peak E Carter 1.10 m/s 03-25-2020 [facility] MV peak gradient 5 mmHg 03-25-2020 OS [facility] ([facility]) MV stenosis 64.80 ms 03-25-2020 [facility] pressure 1/2 time [facility] ([facility]) MV valve area p 1/2 3.40 cm2 03-25-[facility] PV peak gradient 2 mmHg 03-25-2020 [facility] ([id number]) PV PK CARTER 0.79 m/s 03-25-2020 [facility] (09846) PW 1.22 0.6 - cm Abnormal 03-25-2020 [facility] R 1.1 [facility] ([facility]) RVOT peak gradient 1 mmHg 03-25-2020 [facility] ([id number]) RVOT peak carter 0.52 m/s 03-25-2020 [facility] ([facility]) Sinus 3.30 cm 03-25-2020 [facility] STJ 3.40 cm 03-25-2020 [facility] Poor image quality. 03-25-2020 [facility] Normal LV size and function, EF 60%. MEDICAL Normal RV size and function. CENTER No hemodynamically significant valve disease. ([id number]) Negative contrast study for a cardiac shunt. [...] 00:06 AM CENTER COMPARISON: Head CT ([facility]) March 21, 2020. CLINICAL INDICATIONS: 64 years [...] WITHOUT CONTRAST, 03/25/2020 00:06 AM 03-25-2020 [facility] MEDICAL COMPAR[facility]: Head CT March 21, 2020. [place] ([id number]) CLINICAL INDICATIONS: 64 years Male altered mental [...] lesser extent. Average glucose 114 mg/dL 03-25-2020 [facility] Estimated from MEDIC AL glycated hemoglobin CENTER mass conc (Bld) (432 10) HbA1c (Bld) [Mass 5.6 4.7 - % 03-25-2020 O [facility] fraction] 5.6 [facility] (21026) Cholesterol 191 <200 mg/dL 03-25-2020 [facility] [Mass/Vol] [facility] (21325) Comment: [<200 mg/dL: Desirable] [200-239 mg/dL: Borderline High] [>239 mg/dL: High] Cholesterol in HDL [Mass/Vol] 159 <130 mg/dL High 03-25-2020 [facility] (78678) Cholesterol in HDL [Mass/Vol] 32 >=40 mg/dL Low 03-25-2020 [facility] (42566) Comment: [<40 mg/dL: Low (High Risk) ] [>59 mg/dL: High (Low Risk) ] Cholesterol in LDL 126 0 - 99 mg/dL High 03-25-2020 [facility] [Mass/Vol] [place] (3 2160) Comment: [<100 mg/dL: Optimal] [100-129 mg/dL: Near [place] l] [130-159 mg/dL: Borderline High] [160-189 mg/dL: High] [>189 mg/dL: Very High] Cholesterol.total/Cholesterol in HDL 6.0 <4.5 Hig h 03-25-2020 [facility] [Mass ratio] [facility] (55550) Interpretation and review of Abnormal 0 03-25-2020 [facility] laboratory results [facility] ([facility]) Triglyceride [Mass/Vol] 166 <150 mg/dL High 2019 [facility] ([facility]) Comment: [<150 mg/dL: Desirable] [150-199 mg/dL: Borderline] [200-499 mg/dL: High] [>500 mg/dL: Very High] Interpretation and Abnormal 03-25-2020 [facility] review of laboratory MEDICAL results [place] ([facility]) Lactate [Moles/Vol] 2.2 0.5 - 1.6 mmol/L High 03-25-2020 [facility] (09715) Anion gap [Moles/Vol] 13 7 - 17 mmol/L 03-25-20 20 [facility] ([facility]) Chloride [Moles/Vol] 106 98 - 108 mmol/L 0 [facility] (29930) CO2 [Moles/Vol] 23 22 - 30 mmol/L 03-25-2020 [facility] (49554) Creatinine [Mass/Vol] 0.93 0.7 - 1.3 mg/dL 03-25-20 [facility] (85653) GFR/1.73 sq >=60 >=60 mL/min/{ 03-25-2020 [facility].predicted MDRD mL/min/1. 1.73_m2} MED ICAL (S/P/Bld) [Vol 73sqM CENTE R rate/Area] (94513) Glucose [Mass/Vol] 121 70 - 99 mg/dL High 03-25-2020 [facility] ([facility]) Interpretation and Abnormal 03-25-2020 [facility] review of laboratory [facility] results [place] ([facility]) Osmolality Calc 297 OTH - OTH 03-25-2020 [facility] [Osmolality] [facility] ([facility]) Potassium [Moles/Vol] 4.1 3.5 - 5 mmol/L 03-25-20 20 [facility] (93130) Sodium [Moles/Vol] 138 133 - 143 mmol/L 03-25-2020 [facility] ([facility]) Urea nitrogen 30 7 - 22 mg/dL High 03-25-2020 [facility] [Mass/Vol] [facility] ([facility]) Urea 32 mg/mg 03-25-2020 [facility] R nitrogen/Creatinine MEDICAL [Mass ratio] [place] ([facility]) Basophils (Bld) 0.04 0 - 0.09 K/uL 03-25-2020 [facility] [#/Vol] [facility] ([facility]) Basophils/100 WBC 0.3 % 03-25-2020 O [facility] [place] (Bld) [facility] ([facility]) DIFF STATUS Electronic 03-25-2020 [facility] Differential [facility] ([facility]) Eosinophils (Bld) <0.04 0 - 0.48 10*3/uL 03-25-2020 O [facility] [place] [#/Vol] [facility] ([facility]) Eosinophils/100 WBC 0.1 % 03-25-2020 [facility] (Bld) [facility] ([facility]) Erythrocyte 13.1 10.9 - % 03-25-2020 [facility] distribution width 14.3 M EDICAL (RBC) [Ratio] [place] ([facility]) Hematocrit (Bld) 42.5 39.6 - % 03-25-2020 [facility] [Volume fraction] 48.8 ME DICAL [place] ([facility]) Hemoglobin (Bld) 13.9 13.4 - g/dL 03-25-2020 [facility] [place] [Mass/Vol] 16.8 [facility] ([facility]) Immature granulocytes 0.36 <=0.08 K/uL High 03-25-20 20 [facility] (Bld) [#/Vol] MEDICA L CENTER ([facility]) Immature 2.6 % 03-25-2020 [facility] R granulocytes/100 WBC MEDICAL (Bld) [place] ([facility]) Interpretation and Abnormal 03-25-2020 [facility] review of laboratory MEDICAL results [place] ([facility]) Lymphocytes (Bld) 0.94 0.83 - K/uL 03-25-2020 O [facility] [place] [#/Vol] 3.57 [facility] ([facility]) Lymphocytes/100 WBC 6.8 % 03-25-2020 [facility] (Bld) [facility] ([facility]) MCH (RBC) [Entitic 29.6 26.1 - pg 03-25-2020 [facility] mass] 33.3 [facility] ([facility]) MCHC (RBC) [Mass/Vol] 32.7 31.9 - g/dL 03-25-20 20 [facility] 36.5 [facility] ([facility]) MCV (RBC) [Entitic 90.6 79 - 94.5 fL 03-25-2020 [facility] vol] [facility] ([facility]) Monocytes (Bld) 0.64 0.24 - K/uL 03-25-2020 [facility] [#/Vol] 0.93 [facility] ([facility]) Monocytes/100 WBC 4.6 % 03-25-2020 [facility] [place] (Bld) [facility] ([facility]) Neutrophils (Bld) 11.90 1.57 - K/uL High 03-25-2020 O [facility] [#/Vol] 6.19 [facility] ([facility]) Nucleated RBC/100 WBC 0.1 <=0.2 % 03-25-20 20 [facility] (Bld) [Ratio] /100 WBC MEDICA L [place] ([facility]) Platelet mean volume 10.5 8.7 - fL 0 [facility] (Bld) [Entitic vol] 12.3 [facility] ([facility]) Platelets (Bld) 217 146 - 337 K/uL 03-25-2020 [facility] [#/Vol] [facility] ([facility]) RBC (Bld) [#/Vol] 4.69 OTH - OTH 10*6/uL 03-25-2020 O DA[facility]SON [place] [facility] ([facility]) Segmented 85.6 % 03-25-2020 [facility] R neutrophils/100 WBC [facility] (Bld) [place] ([facility]) WBC (Bld) [#/Vol] 13.89 3.73 - K/uL High 03-25-2020 O [facility] [place] 10.1 [facility] ([facility]) us abdomen ruq/liver/gb on 2020-03-24 US ABDOMEN EXAM: US ABDOMEN RUQ/LIVER/GB, 03/24/2020 08:33 AM Normal 03-24-2020 [facility] RUQ/LIVER/GB CLINICAL INDICATIONS: AMS, concern for new liver disease [facility] COMPARISON: No prior studies available for comparison. Medical Center TECHNIQUE: Real-time ultrasound evaluation of the right uppe r quadrant was (46510) performed utilizing a curved array trans ducer. [...] Bacteria identified Cx Nom No Growth Normal [facility] (U) [facility] (22313) Comment: Order Comment: Nails top vacu tainer. Urine must be to the fill line to process (4mls). If minimum v olume, send urine in a yellow top vacutainer tube. Performed By: #### CKB, C7ED , HFP, ACTMJ, SALIJ, CA, MGO, TSH #### [facility] ([facility]) [address] [place] [address] lactate, blood on 2 Lactate, Blood 2.1 0.5-1.6 mmol/L High 03-24-2020 [facility] nter (42236) Comment: Performed By: #### LACT #### [facility] (DEFAULT)[address] [facility] [place] [address] chem 7 (lytes,bun,crea,gluc) on 2020-03-24 Anion gap [Moles/Vol] 16 7-17 mmol/L Normal 03-24-20 20 [facility] nter (79218) Comment: Performed By: #### [id number] #### [facility] (DEFAULT)[address] [place] [address] Chloride [Moles/Vol] 107 98-108 mmol/L Normal 0 [facility] nter (55477) Comment: Performed By: #### [id number] #### [facility] (DEFAULT)[address] [facility] [address] CO2 [Moles/Vol] 22 22-30 mmol/L Normal 03-24-2020 [facility] nter (09734) Comment: Performed By: #### [id number] #### [facility] (DEFAULT)[address] [place] [address] Creatinine [Mass/Vol] 1.10 0.70-1.30 mg/dL Normal 03-24-[address] [facility] (11285) Comment: Performed By: #### [id number] #### [facility] (DEFAULT)[address] [place] [address] EST GFR, 60 >=60 mL/min/1.73sqM Normal 03-24-[address] [facility] (04137) Comment: Performed By: #### [id number] #### [facility] (DEFAULT)[address] [place] [address] EST GFR,Non 60 >=60 mL/min/1.73sqM Normal 03-24 [facility] (36318) Comment: Performed By: #### CHM7 #### [facility] (DEFAULT)[address] [place] [address] Glucose [Mass/Vol] 125 70-99 mg/dL High 03-24-2020 [facility] nter (95995) Comment: Performed By: #### CHM7 #### [facility] (DEFAULT)[address] [place] [address] Osmolality [Osmolality] 301 278-305 mOsm/kg Normal 2019 [facility] (63283) Comment: Performed By: #### CHM7 #### [facility] (DEFAULT)[address] [facility] [address] Potassium [Moles/Vol] 4.1 3.5-5.0 mmol/L Normal 03-24-20 [facility] (38310) Comment: Performed By: #### CHM7 #### [facility] (DEFAULT)[address] [facility] [address] Sodium [Moles/Vol] 141 133-143 mmol/L Normal 03-24-2020 [facility] nter (07052) Comment: Performed By: #### CHM7 #### [facility] (DEFAULT)[address] [place] [address] Urea nitrogen [Mass/Vol] 26 7-22 mg/dL High 03-24 [facility] nter (73586) Comment: Performed By: #### CHM7 #### [facility] (DEFAULT)[address] [facility] [place] [address] Urea nitrogen/Creatinine [Mass 24 mg/mg Normal 03-24-2020 [facility] ratio] [facility] (87029) Comment: Performed By: #### CHM7 #### [facility] (DEFAULT)[address] [place] [address] cbc and electronic diff on 2020-03-24 Basophils (Bld) [#/Vol] 0.04 0.00-0.09 K/uL Normal 2019 [facility] (21787) Comment: Performed By: #### [id number] ## ##[facility] (DEFAULT)[address] [facility] [address] Basophils/100 WBC (Bld) 0.2 % Normal 2019 [facility] nter (40464) Comment: Performed By: #### [id number] ## ##[facility] (DEFAULT)[address] [place] [address] DIFF STATUS Electronic Differential Normal 03-08 [facility] (94756) Comment: Performed By: #### [id number] ## ##[facility] (DEFAULT)[address] [place] [address] Eosinophils (Bld) 0.04 0.00-0.48 K/uL Normal 03-24-2020 [facility] [#/Vol] [facility] (26325) Comment: Performed By: #### [id number] ## ##[facility] (DEFAULT)[address] [place] [address] Eosinophils/100 WBC (Bld) 0.1 % Normal 03-08 [facility] nter (98269) Comment: Performed By: #### [id number] ## ##[facility] (DEFAULT)[address] [place] [address] Hematocrit (Bld) [Volume 41.7 39.6-48.8 % Normal 03-24 [facility] fraction] [facility] (92335) Comment: Performed By: #### [id number] ## ##[facility] (DEFAULT)[address] [place] [address] Hemoglobin (Bld) 13.4 13.4-16.8 g/dL Normal 03-24-2020 [facility] [Mass/Vol] [facility] (80783) Comment: Performed By: #### [id number] ## ##[facility] (DEFAULT)[address] [place] [address] Immature Grans % 2.2 % Normal 03-24-2020 [facility] (00 000) Comment: Performed By: #### [id number] ## ##[facility] (DEFAULT)[address] [place] [address] Immature Grans Absolute 0.37 <=0.08 K/uL High 2019 [facility] Ce nter (43264) Comment: Performed By: #### [id number] ## ##[facility] (DEFAULT)[address] [place] [address] Lymphocytes (Bld) 0.86 0.83-3.57 K/uL Normal 03-24-2020 [facility] [#/Vol] [facility] (55436) Comment: Performed By: #### [id number] ## ##[facility] (DEFAULT)[address] [place] [address] Lymphocytes/100 WBC (Bld) 5.1 % Normal 03-08 [facility] nter (13757) Comment: Performed By: #### [id number] ## ##[facility] (DEFAULT)[address] [place] [address] MCV (RBC) [Entitic vol] 90.7 79.0-94.5 fL Normal 2019 [facility] (37548) Comment: Performed By: #### [id number] ## ##[facility] (DEFAULT)[address] [place] [address] Mean Cell Hgb 29.1 26.1-33.3 pg Normal 03-24-2020 [facility] nter (16207) Comment: Performed By: #### [id number] ## ##[facility] (DEFAULT)[address] [place] [address] Mean Cell Hgb Conc 32.1 31.9-36.5 g/dL Normal 03-24-2020 [facility] nter (89874) Comment: Performed By: #### [id number] ## ##[facility] (DEFAULT)[address] [facility] [place] [address] Monocytes (Bld) [#/Vol] 0.78 0.24-0.93 K/uL Normal 2019 [facility] (26058) Comment: Performed By: #### [id number] ## ##[facility] (DEFAULT)[address] [place] [address] Monocytes/100 WBC (Bld) 4.6 % Normal [facility] (75539) Comment: Performed By: #### [id number] ## ##[facility] (DEFAULT)[address] [facility] [address] Nucleated RBC (Bld) 0.0 <=0.2 /100 WBC Normal 03-24-2020 [facility] [#/Vol] [facility] (53449) Comment: Performed By: #### [id number] ## ##[facility] (DEFAULT)[address] [facility] [place] [address] Platelet mean volume 10.6 8.7-12.3 fL Normal 0 [facility] (Bld) [Entitic vol] [facility] (13793) Comment: Performed By: #### [id number] ## ##[facility] (DEFAULT)[address] [facility] [place] [address] Platelets (Bld) [#/Vol] 253 146-337 K/uL Normal 2019 [facility] (02982) Comment: Performed By: #### [id number] ## ##[facility] (DEFAULT)[address] [facility] [place] [address] RBC (Bld) [#/Vol] 4.60 4.38-5.83 M/uL Normal 03-24-2020 O [facility] nter (41651) Comment: Performed By: #### [id number] ## ##[facility] (DEFAULT)[address] [facility] [place] [address] RBC (Bld) [#/Vol] 13.2 10.9-14.3 % Normal 03-24-2020 O [facility] Ce nter (25157) Comment: Performed By: #### [id number] ## ##[facility] (DEFAULT)[address] [place] [address] Segs + Bands Auto 87.8 % Normal 03-24-2020 O [facility] (00 000) Comment: Performed By: #### [id number] ## ##[facility] (DEFAULT)[address] [place] [address] Segs + Bands,Absolute Auto 14.87 1.57-6.19 K/uL High [facility] (38880) Comment: Performed By: #### [id number] ## ##[facility] (DEFAULT)[address] [place] [address] WBC (Bld) [#/Vol] 16.92 3.73-10.10 K/uL High 03-24-2020 [facility] Ce nter (77076) Comment: Performed By: #### [id number] ## ##[facility] (DEFAULT)[address] [place] [address] ammonia on Ammonia (P) [Mass/Vol] 71 6-47 umol/L High 03-24- 020 [facility] Ce nter (04830) Comment: Performed By: #### [id number] #### [facility] (DEFAULT)[address] [place] [address] No panel information on 2020-03-24 User, Interfaces - 0 9:52 AM EDT EXAM: US ABDOMEN RUQ/LIVER/GB, 03/24/2020 08:33 AM 03-24-2020 [facility] MEDICAL CLINICAL INDICATIONS: AMS, concern for new liver disease CENTER (29579) COMPARISON: No prior studies available for comparison. [...] L evidence of CENTER cirrhosis. No focal (80531) hepatic lesions. I personally viewed and interpreted these images and I have reviewed and approved this report. : US ABDOMEN 03-24-2020 [facility] RUQ/LIVER/GB, MEDICA L 03/24/2020 08:33 AM CENTER CLINICAL INDICATIONS: (03708) AMS, concern for new liver disease COMPARISON: [...] umol/L High 03-24-2020 [facility] [Mass/Vol] [facility] (57686) Interpretation and Abnormal 03-24-2020 [facility] review of laboratory [facility] results [place] (48619) Interpretation and Abnormal 03-24-2020 [facility] review of laboratory [facility] results [place] ([id number]) Lactate [Moles/Vol] 2.1 0.5 - 1.6 mmol/L High 03-24-2020 [facility] ([id number]) Anion gap 16 7 - 17 mmol/L 03-24-2020 [facility] [Moles/Vol] [facility] (37496) Chloride [Moles/Vol] 107 98 - 108 mmol/L 0 [facility] (83496) CO2 [Moles/Vol] 22 22 - 30 mmol/L 03-24-2020 [facility] (09717) Creatinine 1.10 0.7 - 1.3 mg/dL 03-24-2020 [facility] [Mass/Vol] [facility] (63334) GFR/1.73 sq >=60 >=60 mL/min/ 03-24-2020 [facility] NER M.predicted MDRD mL/min/1. {1.73_m MED ICAL (S/P/Bld) [Vol 73sqM 2} CENTE R rate/Area] (01258) Glucose [Mass/Vol] 125 70 - 99 mg/dL High 03-24-2020 [facility] (10063) Interpretation and Abnormal 03-24-2020 [facility] review of laboratory [facility] results [place] ([id number]) Osmolality Calc 301 OTH - OTH 03-24-2020 U [facility] [Osmolality] [facility] (48002) Potassium 4.1 3.5 - 5 mmol/L 03-24-2020 [facility] R [Moles/Vol] [facility] ([facility]) Sodium [Moles/Vol] 141 133 - 143 mmol/L 03-24-2020 [facility] ([facility]) Urea nitrogen 26 7 - 22 mg/dL High 03-24-2020 [facility] [Mass/Vol] [facility] ([facility]) Urea 24 mg/mg 03-24-2020 [facility] R nitrogen/Creatinine MEDICAL [Mass ratio] [place] ([facility]) Basophils (Bld) <0.04 0 - 0.09 10*3/uL 03-24-2020 [facility] [#/Vol] [facility] ([facility]) Basophils/100 WBC 0.2 % 03-24-2020 [facility] (Bld) [facility] ([facility]) DIFF STATUS Electronic 03-24-2020 [facility] Differential [facility] ([facility]) Eosinophils (Bld) <0.04 0 - 0.48 10*3/uL 03-24-2020 [facility] [place] [#/Vol] [facility] ([facility]) Eosinophils/100 WBC 0.1 % 03-24-2020 [facility] (Bld) [facility] ([facility]) Erythrocyte 13.2 10.9 - % 03-24-2020 [facility] distribution width 14.3 M EDICAL (RBC) [Ratio] [place] ([facility]) Hematocrit (Bld) 41.7 39.6 - % 03-24-2020 [facility] [place] [Volume fraction] 48.8 ME DICAL [place] ([facility]) Hemoglobin (Bld) 13.4 13.4 - g/dL 03-24-2020 [facility] [place] [Mass/Vol] 16.8 [facility] ([facility]) Immature 0.37 <=0.08 K/uL High 03-24-2020 [facility] R granulocytes (Bld) M EDICAL [#/Vol] [place] ([facility]) Immature 2.2 % 03-24-2020 [facility] R granulocytes/100 WBC MEDICAL (Bld) [place] ([facility]) Interpretation and Abnormal 03-24-2020 [facility] review of laboratory MEDICAL results [place] ([facility]) Lymphocytes (Bld) 0.86 0.83 - K/uL 03-24-2020 [facility] [place] [#/Vol] 3.57 [facility] ([facility]) Lymphocytes/100 WBC 5.1 % 03-24-2020 [facility] (Bld) [facility] ([facility]) MCH (RBC) [Entitic 29.1 26.1 - pg 03-24-2020 [facility] mass] 33.3 [facility] ([facility]) MCHC (RBC) 32.1 31.9 - g/dL 03-24-2020 [facility] [Mass/Vol] 36.5 [facility] ([facility]) MCV (RBC) [Entitic 90.7 79 - 94.5 fL 03-24-2020 [facility] vol] [facility] ([facility]) Monocytes (Bld) 0.78 0.24 - K/uL 03-24-2020 [facility] [#/Vol] 0.93 [facility] ([facility]) Monocytes/100 WBC 4.6 % 03-24-2020 [facility] [place] (Bld) [facility] ([facility]) Neutrophils (Bld) 14.87 1.57 - K/uL High 03-24-2020 [facility] [place] [#/Vol] 6.19 [facility] ([facility]) Nucleated RBC/100 0.0 <=0.2 % 03-24-2020 [facility] [place] WBC (Bld) [Ratio] /100 WBC FL [facility]) Platelet mean volume 10.6 8.7 - fL 0 [facility] (Bld) [Entitic vol] 12.3 [facility] ([facility]) Platelets (Bld) 253 146 - 337 K/uL 03-24-2020 [facility] [#/Vol] [facility] ([facility]) RBC (Bld) [#/Vol] 4.60 OTH - OTH 10*6/uL 03-24-2020 [facility] [place] [facility] ([facility]) Segmented 87.8 % 03-24-2020 [facility] R neutrophils/100 WBC [facility] (Bld) [place] ([facility]) WBC (Bld) [#/Vol] 16.92 3.73 - K/uL High 03-24-2020 [facility] [place] 10.1 [facility] ([facility]) vancomycin level, trough (pre drug level ) on 2020-03-23 Vancomycin, Trough 18.0 Therapeutic Range: mcg/mL Normal [facility] 10.0-20.0 mcg/mL [facility] nter (67060) Comment: Order Comment: Please draw slava kuhn at specified interval PRIOR to next dose. Result Comment: Peak 20-40 u g/mL Trough 10-20 ug/mL Performed By: #### VANCTR ## ##[facility] (DEFAULT)[address] [place] [address] 41757 lactate, blood on 2 Lactate, Blood 2.9 0.5-1.6 mmol/L High 03-23-2020 [facility] nter ([id number]) Comment: Performed By: #### LACT #### [facility] (DEFAULT)[address] [place] [address] 37490 chem 7 (lytes,bun,crea,gluc) on 2020-03-23 Anion gap [Moles/Vol] 14 7-17 mmol/L Normal 03-23-20 20 [facility] nter (24262) Comment: Performed By: #### PTISTR, P TT #### [facility] ([facility]) [address] [place] [address] 33560 Chloride [Moles/Vol] 108 98-108 mmol/L Normal 0 [facility] nter (35796) Comment: Performed By: #### PTISTR, P TT #### [facility] ([facility]) [address] [place] [address] 36965 CO2 [Moles/Vol] 21 22-30 mmol/L Low 03-23-2020 [facility] (00 000) Comment: Performed By: #### PTISTR, P TT #### [facility] ([facility]) [address] [place] [address] 17756 Creatinine [Mass/Vol] 1.08 0.70-1.30 mg/dL Normal 03-23-20 20 [facility] (02124) Comment: Performed By: #### PTISTR, P TT #### [facility] ([facility] [address] [place] [address] 76960 EST GFR, 60 >=60 mL/min/1.73sqM Normal 03-23-20 [facility] (88830) Comment: Performed By: #### PTISTR, P TT #### [facility] ([facility]) [address] [place] [address] 40507 EST GFR,Non 60 >=60 mL/min/1.73sqM Normal 03-23 [facility] (76515) Comment: Performed By: #### PTISTR, P TT #### [facility] ([facility]) [address] [place] [address] 09424 Glucose [Mass/Vol] 121 70-99 mg/dL High 03-23-2020 [facility] nter (38864) Comment: Performed By: #### PTISTR, P TT #### [facility] ([facility]) [address] [place] [address] 69680 Osmolality [Osmolality] 296 278-305 mOsm/kg Normal 2019 [facility] (13483) Comment: Performed By: #### PTISTR, P TT #### [facility] ([facility]) [address] [place] [address] 31223 Potassium [Moles/Vol] 4.4 3.5-5.0 mmol/L Normal 03-23-20 20 [facility] (22014) Comment: Performed By: #### PTISTR, P TT #### [facility] ([facility]) [address] [place] [address] 19116 Sodium [Moles/Vol] 139 133-143 mmol/L Normal 03-23-2020 [facility] nter (94189) Comment: Performed By: #### PTISTR, P TT #### [facility] ([facility]) [address] [place] [address] 12937 Urea nitrogen [Mass/Vol] 20 7-22 mg/dL Normal 03-23 [facility] nter (95106) Comment: Performed By: #### PTISTR, P TT #### U [facility] ([facility]) [address] [place] [address] 88307 Urea nitrogen/Creatinine [Mass 19 mg/mg Normal 03-23-2020 [facility] ratio] [facility] (87372) Comment: Performed By: #### PTISTR, P TT #### [facility] ([facility]) [address] [place] [address] 41468 cbc and electronic diff on 2020-03-23 Basophils (Bld) [#/Vol] 0.04 0.00-0.09 K/uL Normal 2019 [facility] (81859) Comment: Performed By: #### PTISTR, P TT #### [facility] ([facility]) [address] [place] [address] 44208 Basophils/100 WBC (Bld) 0.1 % Normal 2019 [facility] nter (38544) Comment: Performed By: #### PTISTR, P TT #### U [facility] ([facility]) [address] [place] [address] 20989 DIFF STATUS Electronic Differential Normal 03-08 [facility] (45372) Comment: Performed By: #### PTISTR, P TT #### [facility] ([facility]) [address] [place] [address] 77688 Eosinophils (Bld) 0.04 0.00-0.48 K/uL Normal 03-23-2020 [facility] [#/Vol] [facility] (31405) Comment: Performed By: #### PTISTR, P TT #### [facility] ([facility]) [address] [place] [address] 63976 Eosinophils/100 WBC (Bld) 0.0 % Normal 03-08 [facility] nter (54340) Comment: Performed By: #### PTISTR, P TT #### [facility] ([facility]) [address] [place] [address] 92309 Hematocrit (Bld) [Volume 40.2 39.6-48.8 % Normal 03-23 [facility] fraction] [facility] (83438) Comment: Performed By: #### PTISTR, P TT #### [facility] ([facility]) [address] [place] [address] 54501 Hemoglobin (Bld) 13.2 13.4-16.8 g/dL Low 03-23-2020 [facility] [Mass/Vol] [facility] (68225) Comment: Performed By: #### PTISTR, P TT #### [facility] ([facility]) [address] [place] [address] 76061 Immature Grans % 1.3 % Normal 03-23-2020 [facility] (00 000) Comment: Performed By: #### PTISTR, P TT #### [facility] ([facility]) [address] [place] [address] 20435 Immature Grans Absolute 0.28 <=0.08 K/uL High 2019 [facility] nter (56817) Comment: Performed By: #### PTISTR, P TT #### [facility] ([facility]) [address] [place] [address] 46250 Lymphocytes (Bld) 1.01 0.83-3.57 K/uL Normal 03-23-2020 [facility] [#/Vol] [facility] (99783) Comment: Performed By: #### PTISTR, P TT #### [facility] ([facility]) [address] [place] [address] 03224 Lymphocytes/100 WBC (Bld) 4.9 % Normal 03-08 [facility] nter (54098) Comment: Performed By: #### PTISTR, P TT #### [facility] ([facility]) [address] [place] [address] 73659 MCV (RBC) [Entitic vol] 90.1 79.0-94.5 fL Normal 2019 [facility] (92122) Comment: Performed By: #### PTISTR, P TT #### [facility] ([facility]) [address] [place] [address] 33483 Mean Cell Hgb 29.6 26.1-33.3 pg Normal 03-23-2020 [facility] nter (57796) Comment: Performed By: #### PTISTR, P TT #### [facility] ([facility]) [address] [place] [address] 57577 Mean Cell Hgb Conc 32.8 31.9-36.5 g/dL Normal 03-23-2020 [facility] nter (17992) Comment: Performed By: #### PTISTR, P TT #### [facility] ([facility]) [address] [place] [address] 58043 Monocytes (Bld) [#/Vol] 0.86 0.24-0.93 K/uL Normal 2019 [facility] (73641) Comment: Performed By: #### PTISTR, P TT #### [facility] ([facility]) [address] [place] [address] 17730 Monocytes/100 WBC (Bld) 4.1 % Normal 2019 [facility] nter (09430) Comment: Performed By: #### PTISTR, P TT #### [facility] ([facility]) [address] [place] [address] 73379 Nucleated RBC (Bld) 0.0 <=0.2 /100 WBC Normal 03-23-2020 [facility] [#/Vol] [facility] (63196) Comment: Performed By: #### PTISTR, P TT #### [facility] ([facility]) [address] [place] [address] 06767 Platelet mean volume 10.5 8.7-12.3 fL Normal 0 [facility] (Bld) [Entitic vol] [facility] (35382) Comment: Performed By: #### PTISTR, P TT #### [facility] ([facility]) [address] [place] [address] 28945 Platelets (Bld) [#/Vol] 247 146-337 K/uL Normal 2019 [facility] (09584) Comment: Performed By: #### PTISTR, P TT #### [facility] ([facility]) [address] [place] [address] 69534 RBC (Bld) [#/Vol] 4.46 4.38-5.83 M/uL Normal 03-23-2020 O [facility] nter (42479) Comment: Performed By: #### PTISTR, P TT #### [facility] ([facility]) [address] [place] [address] 86034 RBC (Bld) [#/Vol] 13.2 10.9-14.3 % Normal 03-23-2020 O [facility] nter (00084) Comment: Performed By: #### PTISTR, P TT #### [facility] ([facility]) [address] [place] [address] 90159 Segs + Bands Auto 89.6 % Normal 03-23-2020 O [facility] (00 000) Comment: Performed By: #### PTISTR, P TT #### [facility] ([facility]) [address] [place] [address] 71130 Segs + Bands,Absolute Auto 18.61 1.57-6.19 K/uL High [facility] (06716) Comment: Performed By: #### PTISTR, P TT #### [facility] ([facility]) [address] [place] [address] 32815 WBC (Bld) [#/Vol] 20.78 3.73-10.10 K/uL High 03-23-2020 [facility] nter (93432) Comment: Performed By: #### PTISTR, P TT #### [facility] (D EFAULT) [address] [place] [address] carboxyhemoglobin o n 2020-03-23 Carboxy-Hgb 6.8 0.5-1.5 % High 03-23-2020 [facility] (02350) Comment: Order Comment: This test can only be run at [facility] Main clinical laboratory. For a carboxyhemoglobin test at [facility], the CO-OXIMETRY (RT) test must be ordered. Performed By: #### COHGB ### #[facility] (DEFAULT)[address] [place] [address] No panel information on 2020-03-23 Rick Hodgson MD - 2019 5:58 PM EDT Long-Term video- EEG Summary Report: 03-23-2020 [facility] REFERRING PHYSICIAN: Goldy Gonzalez MD [place] ([id number]) DATE AND TIME START OF RECORDIN03/22/2020, 1147 [...] DESCRIPTION: The patient is noted by the nuclear medicine chief technologist to follow some commands and is [...] review of MEDICAL laboratory results [facility] (16052) Vancomycin trough 18.0 Therapeutic ug/m 03-23-2020 [facility] [Mass/Vol] Range: 10.0-20.0 L ME DICAL mcg/mL mcg/mL [facility] (11226) Comment: Peak 20-40 ug/mL Trough 10-20 ug/mL Basophils/100 WBC 0 % 03-23-2020 [facility] [place] Manual cnt (CSF) [facility] (57441) Cells Counted Total 80 03-23-2020 [facility] (CSF) [#] [facility] (97616) Eosinophils/100 WBC 0 % 03-23-2020 [facility] Manual cnt (CSF) [facility] (43780) Lymphocytes/100 WBC 65 40 - 80 % 03-23-2020 [facility] Manual cnt (CSF) [facility] (57618) Monocytes+Macrophages/ 35 15 - 45 % 020 [facility] 100 WBC (CSF) [facility] [place] (61204) Neutrophils/100 WBC 0 <=6 % 03-23-2020 [facility] Manual cnt (CSF) [facility] (26909) Pathologist review Charles Lynch MD 03-23-2020 [facility] (Unsp spec) [Interp] [facility] (73673) Pathology report There is no evidence of an inflammatory response. 03-23-2020 [facility] comments MEDICAL [Interpretation] [address] Narrative (69189) Tube number of CSF TUBE 4 03-23-2020 [facility] Cerebral spinal fluid [facility] (26350) Cryptococcus sp Ag Ql Negative Negative 03-23-20 [facility] (CSF) [facility] (85765) Interpretation and Normal 03-23-2020 [facility] review of laboratory [facility] results [place] ([facility]) Interpretation and Abnormal 03-23-2020 [facility] review of laboratory [facility] results [place] ([facility]) Lactate [Moles/Vol] 2.9 0.5 - 1.6 mmol/L High 03-23-2020 [facility] ([facility]) Carboxyhemoglobin 6.8 0.5 - 1.5 % High 03-23-2020 [facility] (Bld) [Mass fraction] [facility] ([facility]) Interpretation and Abnormal 03-23-2020 [facility] review of laboratory [facility] results [place] (54508) Anion gap [Moles/Vol] 14 7 - 17 mmol/L 03-23-20 20 [facility] (14037) Chloride [Moles/Vol] 108 98 - 108 mmol/L 0 [facility] (10775) CO2 [Moles/Vol] 21 22 - 30 mmol/L Low 03-23-2020 [facility] (02446) Creatinine [Mass/Vol] 1.08 0.7 - 1.3 mg/dL 03-23-20 20 [facility] (41621) GFR/1.73 sq >=60 >=60 mL/min 03-23-2020 [facility] NER M.predicted MDRD mL/min/1.73sq /{1.73 MEDICAL (S/P/Bld) [Vol M _m2} [facility] R rate/Area] (19882) Glucose [Mass/Vol] 121 70 - 99 mg/dL High 03-23-2020 [facility] ([facility]) Interpretation and Abnormal 03-23-2020 [facility] review of laboratory [facility] results [place] ([facility]) Osmolality Calc 296 OTH - OTH 03-23-2020 [facility] [Osmolality] [facility] ([facility]) Potassium [Moles/Vol] 4.4 3.5 - 5 mmol/L 03-23-20 20 [facility] ([facility]) Sodium [Moles/Vol] 139 133 - 143 mmol/L 03-23-2020 [facility] ([facility]) Urea nitrogen 20 7 - 22 mg/dL 03-23-2020 [facility] [Mass/Vol] [facility] ([facility]) Urea 19 mg/mg 03-23-2020 [facility] nitrogen/Creatinine MEDICAL [Mass ratio] [place] ([facility]) Basophils (Bld) <0.04 0 - 0.09 10*3/u 03-23-2020 [facility] [#/Vol] L [facility] ([facility]) Basophils/100 WBC 0.1 % 03-23-2020 [facility] [place] (Bld) [facility] ([facility]) DIFF STATUS Electronic 03-23-2020 [facility] Differential [facility] ([facility]) Eosinophils (Bld) <0.04 0 - 0.48 10*3/u 03-23-2020 [facility] [place] [#/Vol] L [facility] ([facility]) Eosinophils/100 WBC 0.0 % 03-23-2020 [facility] (Bld) [facility] ([facility]) Erythrocyte 13.2 10.9 - 14.3 % 03-23-2020 [facility] distribution width M EDICAL (RBC) [Ratio] [place] ([facility]) Hematocrit (Bld) 40.2 39.6 - 48.8 % 03-23-2020 [facility] [Volume fraction] ME DICAL [place] ([facility]) Hemoglobin (Bld) 13.2 13.4 - 16.8 g/dL Low 03-23-2020 [facility] [Mass/Vol] [facility] ([facility]) Immature granulocytes 0.28 <=0.08 K/uL High 03-23-20 20 [facility] (Bld) [#/Vol] [facility] ([facility]) Immature 1.3 % 03-23-2020 [facility] R granulocytes/100 WBC [facility] (Bld) [place] ([facility]) Interpretation and Abnormal 03-23-2020 [facility] review of laboratory MEDICAL results [place] ([facility]) Lymphocytes (Bld) 1.01 0.83 - 3.57 K/uL 03-23-2020 [facility] [#/Vol] [facility] ([facility]) Lymphocytes/100 WBC 4.9 % 03-23-2020 [facility] (Bld) [facility] ([facility]) MCH (RBC) [Entitic 29.6 26.1 - 33.3 pg 0 [facility] mass] [facility] ([facility]) MCHC (RBC) [Mass/Vol] 32.8 31.9 - 36.5 g/dL 2019 [facility] MCV (RBC) [Entitic 90.1 79 - 94.5 fL 03-23-2020 [facility] vol] [facility] ([facility]) Monocytes (Bld) 0.86 0.24 - 0.93 K/uL 03-23-2020 [facility] [#/Vol] [facility] ([facility]) Monocytes/100 WBC 4.1 % 03-23-2020 [facility] (Bld) [facility] ([facility]) Neutrophils (Bld) 18.61 1.57 - 6.19 K/uL High 03-23-2020 [facility] [#/Vol] [facility] ([facility]) Nucleated RBC/100 WBC 0.0 <=0.2 /100 % 020 [facility] (Bld) [Ratio] [facility] ([facility]) Platelet mean volume 10.5 8.7 - 12.3 fL 03-23-20 20 [facility] (Bld) [Entitic vol] [facility] ([facility]) Platelets (Bld) 247 146 - 337 K/uL 03-23-2020 [facility] [#/Vol] [facility] ([facility]) RBC (Bld) [#/Vol] 4.46 OTH - OTH 10*6/u 03-23-2020 [facility] ([facility]) Segmented 89.6 % 03-23-2020 [facility] R neutrophils/100 [facility] (Bld) [place] ([facility]) WBC (Bld) [#/Vol] 20.78 3.73 - 10.1 K/uL High 03-23-2020 [facility] ([id number]) xr fluoro lumbar puncture on 2020-03-22 XR FLUORO LUMBAR EXAM: XR FLUORO LUMBAR PUNCTURE, 03/22/2020 10:17 AM Normal 03-22-2020 [facility] PUNCTURE CLINICAL INDICATIONS: 64 yea rs 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 ([id number]) TECHNIQUE AND FINDINGS: Fluoro time: 10 Consent: [...] PORTABLE ED, 03/21/2020 21:50 PM Normal 03-22-2020 [facility] ED COMPARISON: No prior studies available for comparison. [facility] CLINICAL INDICATIONS: [facility] RELEVANT CLINICAL HISTORY: ([id number]) FINDINGS: (Adequate technique) Life Support Devices: None [...] (Vitamin B12) 534 211-911 pg/mL Normal 2019 [facility] [Mass/Vol] [facility] ([id number]) Comment: Performed By: #### PTISTR, P TT #### [facility] ([facility]) [address] [place] [address] 69465 urinalysis reflex to culture performable on 2020-03-22 Bacteria LM.HPF (Urine ABSENT ABSENT Normal 020 [facility] sed) [#/Area] [facility] ([id number]) Comment: Performed By: #### PTISTR, P TT #### [facility] ([facility]) [address] [place] [address] 58430 Blood Urine Trace Negative Abnormal 03-22-2020 [facility] (00 000) Comment: Performed By: #### PTISTR, P TT #### [facility] ([facility]) [address] [place] [address] 26208 Glucose Ql (U) Negative Negative Normal 03-22-2020 [facility] nter (31440) Comment: Performed By: #### PTISTR, P TT #### [facility] ([facility]) [address] [place] [address] 88454 Ketones Ql (U) Trace Negative Abnormal 03-22-2020 [facility] Ce nter ([id number]) Comment: Performed By: #### PTISTR, P TT #### [facility] ([facility]) [address] [place] [address] 84871 Nitrites Urine Negative Negative Normal 03-22-2020 [facility] nter ([id number]) Comment: Performed By: #### PTISTR, P TT #### [facility] ([facility]) [address] [place] [address] 22121 Specific [place] Urine 1.005 >1.001-<1.035 Normal [facility] ([id number]) Comment: Performed By: #### PTISTR, P TT #### [facility] ( EFAULT) [address] [address] Squamous/Epithelial Cells 1/hpf = 1+ 1/hpf = 1+, Normal 0 03-22-2020 [facility] 2-5/hpf = 2+, Univer sity 0/hpf = 0+, [facility] (00 000) Comment: Performed By: #### PTISTR, P TT #### [facility] (D EFAULT) [address] [place] [address] 11317 Urobilinogen Urine 0.2 E.U./dL 0.2-1.0 Normal 0 [facility] (58396) Comment: Performed By: #### PTISTR, P TT #### [facility] ([facility]) [address] [address] toxicology screen urine - udrg on 2020-03-22 Barbiturates None Detected Cutoff: 200 ng/mL Normal 03-22 [facility] ([id number]) Comment: Order Comment: For Medical P urposes Only. Nonforensic screen results are considered presumptive and n o confirmatory testing will follow. Drugs are detected by immunoassay or L iquid Chromatography Mass Spectrometry (LC-MS/MS). The LC-MS/MS blaze t was developed and its performance characteristics determined b y the Toxicology Laboratory at [facility] nt. It has not been cleared or [...] m(200), Alprazolam(50), Amitriptyline(50), Amphetamine(250), Atenolol(5 00),Benzoylecgonine(50), Buprenorphine(100), Bupropion(25),Caffeine(66280 ),Chlordiazepoxide(50), Chlorpheniramine(100), Chlorpromazine(50), Citalopr am(100), Clonazepam(200), Cocaine(25),Codeine(200), [...] By: #### PTISTR, P TT #### [facility] (Dale DIAZ) [address] [place] [address] Drugs Detected Diphenhydramine None Detected Abnormal 03-22 [facility] nter ([id number]) Comment: Order Comment: For Medical P urposes Only. Nonforensic screen results are considered presumptive and n o confirmatory testing will follow. Drugs are detected by immunoassay or L iquid Chromatography Mass Spectrometry (LC-MS/MS). The LC-MS/MS blaze t was developed and its performance characteristics determined b y the Toxicology Laboratory at [facility] nter. It has not been cleared or [...] m(200), Alprazolam(50), Amitriptyline(50), Amphetamine(250), Atenolol(5 00),Benzoylecgonine(50), Buprenorphine(100), Bupropion(25),Caffeine(24498 ),Chlordiazepoxide(50), Chlorpheniramine(100), Chlorpromazine(50), Citalopr am(100), Clonazepam(200), Cocaine(25),Codeine(200), [...] By: #### PTISTR, P TT #### [facility] (D EFMACEDONIA) [address] [place] [address] 64626 protein & glucose, csf on 2020-03-22 CSF Glucose 88 40-70 mg/dL High 03-22-2020 [facility] (00 000) Comment: Performed By: #### PTISTR, P TT #### [facility] ( EFAULT) [address] [place] [address] CSF Protein 92 15-45 mg/dL High 03-22-2020 [facility] (00 000) Comment: Performed By: #### PTISTR, P TT #### [facility] ([facility]) [address] [place] [address] 07336 novel coronavirus pcr on 2020-03-22 SARS-COV-2 NOT DETECTED NOT DETECTED Normal 03-22-[address] [facility] Ce nter ([id number]) Comment: Order Comment: Viral transpo rt media (red leader with pink fluid) or BAL specimen - Collection must b e done while wearing N-95 mask, eye protection, gown and gloves. Please labe l ALL specimens as 2019-V rule out and deliver by hand.This test wa s performed using real time PCR and has been approved for the qualitative detection of SARS-CoV-2 nucleic acid. The test has been authorized by the [facility] under an emergency use authorization for use [...] By: #### PTISTR, P TT #### [facility] ([facility]) [address] [address] meningitis/encephalitis panel, csf on 2020-03-22 CMV DNA Not Detected Not Detected Normal 03-22-2020 [facility] nter ([id number]) Comment: Order Comment: A negative re sult does not exclude the possibility of BUSINESS OWNER/ENGINEER infection and should not be used as [...] By: #### PTISTR, P TT #### [facility] ([facility]) [address] [address] Cryptococcus Not Detected Not Detected Normal 03-22-2020 [facility] (00 000) Comment: Order Comment: A negative re sult does not exclude the possibility of BUSINESS OWNER/ENGINEER infection and should not be used as [...] By: #### PTISTR, P TT #### [facility] (Dale EFJOSE) [address] [place] [address] 68941 E. Coli K1 DNA Not Detected Not Detected Normal 0 [facility] ([id number]) Comment: Order Comment: A negative re sult does not exclude the possibility of BUSINESS OWNER/ENGINEER infection and should not be used as [...] Performed By: #### PTISTR, P TT #### [facility] ([facility]) [address] [address] Enterovirus RNA Not Detected Not Detected Normal 03-22-20 20 [facility] ([id number]) Comment: Order Comment: A negative re sult does not exclude the possibility of BUSINESS OWNER/ENGINEER infection and should not be used as [...] Performed By: #### PTISTR, P TT #### [facility] ([facility]) [address] [address] Haemophilus Not Detected Not Detected Normal 03-22-2020 O [facility] State Influenza DNA [facility] nter ([id number]) Comment: Order Comment: A negative re sult does not exclude the possibility of BUSINESS OWNER/ENGINEER infection and should not be used as [...] Performed By: #### PTISTR, P TT #### [facility] ([facility]) [address] [place] [address] Hhv-6 DNA Not Detected Not Detected Normal 03-22-2020 [facility] nter ([id number]) Comment: Order Comment: A negative re sult does not exclude the possibility of BUSINESS OWNER/ENGINEER infection and should not be used as [...] Performed By: #### PTISTR, P TT #### [facility] ([facility]) [address] [address] Hsv-1 DNA Not Detected Not Detected Normal 03-22-2020 [facility] nter ([id number]) Comment: Order Comment: A negative re sult does not exclude the possibility of BUSINESS OWNER/ENGINEER infection and should not be used as [...] Performed By: #### PTISTR, P TT #### [facility] ([facility]) [address] [place] [address]8741 Hsv-2 DNA Not Detected Not Detected Normal 03-22-2020 [facility] nter ([id number]) Comment: Order Comment: A negative re sult does not exclude the possibility of BUSINESS OWNER/ENGINEER infection and should not be used as [...] Performed By: #### PTISTR, P TT #### [facility] ([facility]) [address] [place] [address] Human Parechovirus Not Detected Not Detected Normal 03-22 [facility] nter ([id number]) Comment: Order Comment: A negative re sult does not exclude the possibility of BUSINESS OWNER/ENGINEER infection and should not be used as [...] By: #### PTISTR, P TT #### [facility] ([facility]) [address] [place] [address] Listeria Not Detected Not Detected Normal 03-22-2020 [facility] Monocytogenes DNA Un [facility] nter ([id number]) Comment: Order Comment: A negative re sult does not exclude the possibility of BUSINESS OWNER/ENGINEER infection and should not be used as [...] By: #### PTISTR, P TT #### [facility] ([facility]) [facility] [address] [address] Neisseria Not Detected Not Detected Normal 03-22-2020 [facility] [facility] Meningitidis DNA [facility] nter ([id number]) Comment: Order Comment: A negative re sult does not exclude the possibility of BUSINESS OWNER/ENGINEER infection and should not be used as [...] Performed By: #### PTISTR, P TT #### [place] [address] Streptococcus Not Detected Not Detected Normal 03-22-2020 [facility] Agalactiae DNA [facility] nter (16624) Comment: Order Comment: A negative re sult does not exclude the possibility of BUSINESS OWNER/ENGINEER infection and should not be used as [...] By: #### PTISTR, P TT #### U [facility] ([facility]) [address] [place] [address]60[address] Streptococcus Not Detected Not Detected Normal 03-22-2020 [facility] Pneumoniae DNA [facility] nter (39362) Comment: Order Comment: A negative re sult does not exclude the possibility of BUSINESS OWNER/ENGINEER infection and should not be used as [...] Performed By: #### PTISTR, P TT #### [facility] ([facility]) [address] [place] [address] 02844 Varicella Zoster Not Detected Not Detected Normal 020 [facility] nter ([id number]) Comment: Order Comment: A negative re sult does not exclude the possibility of BUSINESS OWNER/ENGINEER infection and should not be used as [...] Performed By: #### PTISTR, P TT #### [facility] [address] [place] [address] 96246 lactate, blood on 2 Lactate, Blood 3.2 0.5-1.6 mmol/L High 03-22-2020 [facility] nter (41453) Comment: Performed By: #### PTISTR, P TT #### [facility] ([facility]) [address] [place] [address] 11178 folate, serum on 27-03-15 Folate [Mass/Vol] 16.44 >5.38 ng/mL Normal 03-22-2020 O [facility] nter (05438) Comment: Performed By: #### PTISTR, P TT #### [facility] ([facility]) [address] [place] [address] 24653 csf fluid count only on 2020-03-22 CSF Tube Number CSF TUBE 4 Normal 03-22-2020 [facility] (00 000) Comment: Performed By: #### PTISTR, P TT #### [facility] ([facility]) [address] [place] [address] Performed By: #### [id number] ## ##U [facility] (DEFAULT)[address] [place] [address] 66134 RBC (Bld) [#/Vol] 3 <3 /uL Normal 03-22-2020 [facility] (00 000) Comment: Performed By: #### PTISTR, P TT #### [facility] ([facility]) [address] [place] [address] 83720 WBC (Bld) [#/Vol] 3 <6 /uL Normal 03-22-2020 [facility] (00 000) Comment: Performed By: #### PTISTR, P TT #### [facility] ([facility]) [address] [place] [address] 26608 csf differential on 2020-03-22 Basophils (Csf) 0 % Normal 03-22-2020 [facility] (49114) Comment: Performed By: #### [id number] ## ##U [facility] (DEFAULT)[address] [place] [address] 15448 Cells Counted (CSF) 80 Normal 03-22-2020 [facility] (00 000) Comment: Performed By: #### [id number] ## ##[facility] (DEFAULT)[address] [place] [address] Comment (Csf) Normal 03-22-2020 [facility] (86048) Comment: Result Comment: There is no evidence of an inflammatory response. Performed By: #### [id number] ## ##[facility] (DEFAULT)[address] [facility] [place] [address] Differential Reviewed By Marvel Lynch MD Normal 03-22-2020 [facility] (77136) Comment: Performed By: #### [id number] ## ##[facility] (DEFAULT)[address] [place] [address] Eosinophils (Csf) 0 % Normal 03-22-2020 O [facility] (84423) Comment: Performed By: #### [id number] ## ##[facility] (DEFAULT)[address] [place] [address], [place] [address] Lymphocytes (Csf) 65 40-80 % Normal 03-22-2020 O [facility] (00 000) Comment: Performed By: #### [id number] ## ##[facility] (DEFAULT)[address] [place] [address], [place] [address] Monocytes/Macrophages, CSF 35 15-45 % Normal [facility] Ce nter (92188) Comment: Performed By: #### [id number] ## ##[facility] (DEFAULT)[address] [place] [address] Neutrophils (Csf) 0 <=6 % Normal 03-22-2020 O [facility] (00 000) Comment: Performed By: #### [id number] ## ##[facility] (DEFAULT)[address] [place] [address], [place] [address] cryptococcus, antigen csf on 2020-03-22 Cryptococcus Ag, CSF Negative Negative Normal 0 [facility] (32823) Comment: Performed By: #### FCRAG ### #U [facility] (DEFAULT)[address] [place] [address] chem 7 (lytes,bun,crea,gluc) on 2020-03-22 Anion gap [Moles/Vol] 15 7-17 mmol/L Normal 03-22-20 20 [facility] nter (13470) Comment: Performed By: #### PTISTR, P TT #### [facility] ([facility]) [address] [place] [address] 17080 Chloride [Moles/Vol] 105 98-108 mmol/L Normal 0 [facility] nter (90991) Comment: Performed By: #### PTISTR, P TT #### [facility] ([facility]) [address] [place] [address] 90349 CO2 [Moles/Vol] 21 22-30 mmol/L Low 03-22-2020 [facility] (00 000) Comment: Performed By: #### PTISTR, P TT #### [facility] ([facility]) [address] [place] [address] 61415 Creatinine [Mass/Vol] 1.11 0.70-1.30 mg/dL Normal 03-22-20 20 [facility] (22608) Comment: Performed By: #### PTISTR, P TT #### [facility] ([facility]) [address] [place] [address] 23006 EST GFR, 60 >=60 mL/min/1.73sqM Normal 03-22-20 20 [facility] (77669) Comment: Performed By: #### PTISTR, P TT #### [facility] ([facility]) [address] [place] [address] 21284 EST GFR,Non 60 >=60 mL/min/1.73sqM Normal 03-22 [facility] (37561) Comment: Performed By: #### PTISTR, P TT #### [facility] ([facility]) [address] [place] [address] 23524 Glucose [Mass/Vol] 142 70-99 mg/dL High 03-22-2020 [facility] nter (35970) Comment: Performed By: #### PTISTR, P TT #### [facility] ([facility]) [address] [place] [address] 16831 Osmolality [Osmolality] 292 278-305 mOsm/kg Normal 2019 [facility] (33340) Comment: Performed By: #### PTISTR, P TT #### [facility] ([facility]) [address] [place] [address] 88095 Potassium [Moles/Vol] 4.4 3.5-5.0 mmol/L Normal 03-22-20 [facility] (29521) Comment: Performed By: #### PTISTR, P TT #### [facility] ([facility]) [address] [place] [address] 73970 Sodium [Moles/Vol] 137 133-143 mmol/L Normal 03-22-2020 [facility] nter (68587) Comment: Performed By: #### PTISTR, P TT #### [facility] ([facility]) [address] [place] [address] 10653 Urea nitrogen [Mass/Vol] 17 7-22 mg/dL Normal 03-22 [facility] nter (25403) Comment: Performed By: #### PTISTR, P TT #### [facility] ([facility]) [address] [place] [address] 68684 Urea nitrogen/Creatinine [Mass 15 mg/mg Normal 03-22-2020 [facility] ratio] [facility] (68318) Comment: Performed By: #### PTISTR, P TT #### [facility] ([facility]) [address] [place] [address] 07028 cbc and electronic diff on 2020-03-22 Basophils (Bld) [#/Vol] 0.04 0.00-0.09 K/uL Normal 2019 [facility] (70432) Comment: Performed By: #### PTISTR, P TT #### [facility] ([facility]) [address] [place] [address] 02884 Basophils/100 WBC (Bld) 0.1 % Normal 2019 [facility] nter (36065) Comment: Performed By: #### PTISTR, P TT #### [facility] ([facility]) [address] [place] [address] 19728 DIFF STATUS Electronic Differential Normal 03-08 [facility] (44057) Comment: Performed By: #### PTISTR, P TT #### [facility] ([facility]) [address] [place] [address] 07267 Eosinophils (Bld) 0.04 0.00-0.48 K/uL Normal 03-22-2020 [facility] [#/Vol] [facility] (51593) Comment: Performed By: #### PTISTR, P TT #### [facility] ([facility]) [address] [place] [address] 18688 Eosinophils/100 WBC (Bld) 0.0 % Normal 03-08 [facility] nter (99306) Comment: Performed By: #### PTISTR, P TT #### [facility] ([facility]) [address] [place] [address] 26834 Hematocrit (Bld) [Volume 43.6 39.6-48.8 % Normal 03-22 [facility] fraction] [facility] (95065) Comment: Performed By: #### PTISTR, P TT #### [facility] ([facility]) [address] [place] [address] 44062 Hemoglobin (Bld) 14.1 13.4-16.8 g/dL Normal 03-22-2020 [facility] [Mass/Vol] [facility] (34124) Comment: Performed By: #### PTISTR, P TT #### [facility] ([facility]) [address] [place] [address] 36869 Immature Grans % 1.0 % Normal 03-22-2020 [facility] (00 000) Comment: Performed By: #### PTISTR, P TT #### [facility] ([facility]) [address] [place] [address] 73863 Immature Grans Absolute 0.17 <=0.08 K/uL High 2019 [facility] nter (40893) Comment: Performed By: #### PTISTR, P TT #### [facility] ([facility]) [address] [place] [address] 74338 Lymphocytes (Bld) 1.08 0.83-3.57 K/uL Normal 03-22-2020 [facility] [#/Vol] [facility] (57681) Comment: Performed By: #### PTISTR, P TT #### [facility] ([facility]) [address] [place] [address] 21694 Lymphocytes/100 WBC (Bld) 6.1 % Normal 03-08 [facility] nter (76831) Comment: Performed By: #### PTISTR, P TT #### [facility] ([facility]) [address] [place] [address] 16962 MCV (RBC) [Entitic vol] 90.8 79.0-94.5 fL Normal 2019 [facility] (26344) Comment: Performed By: #### PTISTR, P TT #### [facility] ([facility]) [address] [place] [address] 96442 Mean Cell Hgb 29.4 26.1-33.3 pg Normal 03-22-2020 [facility] nter (06381) Comment: Performed By: #### PTISTR, P TT #### [facility] ([facility]) [address] [place] [address] 02315 Mean Cell Hgb Conc 32.3 31.9-36.5 g/dL Normal 03-22-2020 [facility] nter (60304) Comment: Performed By: #### PTISTR, P TT #### [facility] ([facility]) [address] [place] [address] 75936 Monocytes (Bld) [#/Vol] 0.72 0.24-0.93 K/uL Normal 2019 [facility] (26164) Comment: Performed By: #### PTISTR, P TT #### [facility] ( EFAULT) [address] [place] [address] 41892 Monocytes/100 WBC (Bld) 4.1 % Normal 2019 [facility] nter (88539) Comment: Performed By: #### PTISTR, P TT #### [facility] ([facility]) [address] [place] [address] 31519 Nucleated RBC (Bld) 0.0 <=0.2 /100 WBC Normal 03-22-2020 [facility] [#/Vol] [facility] (69386) Comment: Performed By: #### PTISTR, P TT #### [facility] ([facility]) [address] [place] [address] 50175 Platelet mean volume 10.5 8.7-12.3 fL Normal 0 [facility] (Bld) [Entitic vol] [facility] (89414) Comment: Performed By: #### PTISTR, P TT #### [facility] ([facility]) [address] [place] [address] 52119 Platelets (Bld) [#/Vol] 246 146-337 K/uL Normal 2019 [facility] (09183) Comment: Performed By: #### PTISTR, P TT #### [facility] [facility] ([facility]) [address] [place] [address] 87016 RBC (Bld) [#/Vol] 4.80 4.38-5.83 M/uL Normal 03-22-2020 O [facility] nter (32401) Comment: Performed By: #### PTISTR, P TT #### [facility] ([facility]) [address] [place] [address] 46214 RBC (Bld) [#/Vol] 13.0 10.9-14.3 % Normal 03-22-2020 O [facility] nter (83800) Comment: Performed By: #### PTISTR, P TT #### [facility] ([facility]) [address] [place] [address] 71090 Segs + Bands Auto 88.7 % Normal 03-22-2020 O [facility] (00 000) Comment: Performed By: #### PTISTR, P TT #### U [facility] ([facility]) [address] [place] [address] 96333 Segs + Bands,Absolute Auto 15.59 1.57-6.19 K/uL High [facility] (74785) Comment: Performed By: #### PTISTR, P TT #### [facility] ([facility]) [address] [place] [address] 35017 WBC (Bld) [#/Vol] 17.58 3.73-10.10 K/uL High 03-22-2020 [facility] nter (84743) Comment: Performed By: #### PTISTR, P TT #### [facility] ([facility]) [address] [place] [address] 30699 blood culture on 27-03-15 Bacteria identified Cx NO GROWTH DAY 5 OF Normal 03-22-2020 [facility] Nom (Bld) 5 [facility] (41120) Comment: Order Comment: 2 Bottles (1 Set [...] ACTMJ, SALIJ, CA, MGO, TSH #### U [facility] ([facility]) [address] [place] [address] 12395 ammonia on Ammonia (P) [Mass/Vol] 45 6-47 umol/L Normal 020 [facility] nter (64848) Comment: Performed By: #### PTISTR, P TT #### [facility] ([facility]) [address] [place] [address] alcohol (ethanol),blood on 2020-03-22 Alcohol, Serum 10 <10 mg/dL Normal 03-22-2020 [facility] (00 000) Comment: Performed By: #### PTISTR, P TT #### [facility] ([facility]) [address] [place] [address] Ethanol [Mass/Vol] None Detected Normal 020 [facility] nter (23946) Comment: Performed By: #### PTISTR, P TT #### [facility] ([facility]) [address] [place] [address] 06814 No panel information on 2020-03-22 C. gattii+neoformans Not Detected Not Detected [facility] DNA ANA+non-probe Ql [facility] ([facility]) [place] (23502) CMV DNA ANA+non-probe Not Detected Not Detected [facility] ([facility]) [facility] (64430) E. coli K1 DNA Not Detected Not Detected 0 [facility] ANA+non-probe ([facility]) [facility] (31326) Enterovirus RNA Not Detected Not Detected 03-22-20 20 [facility] ANA+non-probe Ql ([facility]) [facility] (23719) H. influenzae DNA Not Detected Not Detected 2019 [facility] ANA+non-probe Ql ([facility]) [facility] (59649) HHV 6 DNA Not Detected Not Detected 03-22-2020 [facility] ANA+non-probe ([facility]) [facility] (86563) HSV 1 DNA Not Detected Not Detected 03-22-2020 [facility] ANA+non-probe Ql ([facility]) [facility] (78955) HSV 2 DNA Not Detected Not Detected 03-22-2020 [facility] ANA+non-probe ([facility]) [facility] (59513) Interpretation and Normal 03-22-2020 [facility] review of laboratory MEDICAL results [place] (65476) L. monocytogenes DNA Not Detected Not Detected [facility] ANA+non-probe Ql (CSF) [facility] (48512) N. meningitidis DNA Not Detected Not Detected 03-08 [facility] ANA+non-probe Ql (CSF) [facility] (03079) Parechovirus A RNA Not Detected Not Detected 03-22 [facility] ANA+non-probe Ql (CSF) [facility] (71703) S. agalactiae DNA Not Detected Not Detected 2019 [facility] ANA+non-probe Ql (CSF) [facility] (94497) S. pneumoniae DNA Not Detected Not Detected 2019 [facility] ANA+non-probe Ql (CSF) [facility] (55724) VZV DNA ANA+non-probe Not Detected Not Detected [facility] Ql (CSF) [facility] (13858) A negative result 03-22-2020 [facility] does not exclude MED ICAL the possibility of C ENTER BUSINESS OWNER/ENGINEER infection and (4 3210) should not be [...] <3 <3 /uL 0 [facility] [#/Vol] [facility] (33724) Tube number of CSF TUBE 4 03-22-2020 [facility] Cerebral spinal fluid [facility] (36405) WBC Manual cnt (CSF) <3 <6 /uL 0 [facility] [#/Vol] [facility] (33934) Glucose (CSF) 88 40 - 70 mg/dL High 03-22-2020 [facility] [Mass/Vol] [facility] (79061) Interpretation and Abnormal 03-22-2020 [facility] review of laboratory MEDICAL results [place] (62594) Protein (CSF) 92 15 - 45 mg/dL High 03-22-2020 [facility] [Mass/Vol] [facility] (44185) User, Interfaces - 0 12:28 PM EDT EXAM: XR FLUORO LUMBAR PUNCTURE, 03/22/2020 10:17 AM 03-22-2020 [facility] CLINICAL INDICATIONS: 64 years 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 Opening pressure: 15 cm H2O. I personally viewed and interpreted these images and I have reviewed and approved this report. Cathy Mortensen DO - 03/22/2020 10:10 AM EDT RADIOLOG Y PROCEDURE NOTE 03-22-2020 [facility] MEDICAL LOCATION: [facility] ([facility]) PROCEDURE NAME/DESCRIPTION: Lumbar Puncture INDICATION FOR PROCEDURE: [...] PROCEDURE ATTENDING: Dillon Diaz MD PERFORMING PROCEDURE CARD GRADER: Cathy Mortensen DO ESTIMATED BLOOD LOSS: None COMPLICATIONS: None Dillon Diaz MD was physi juan present for the kim components of the procedure and was immediately available throughout the remaini ng portions of the procedure. Interpretation and Abnormal 03-22-2020 [facility] review of laboratory MEDICAL results [place] (45481) Lactate [Moles/Vol] 3.2 0.5 - 1.6 mmol/L High 03-22-2020 [facility] (80151) Ethanol [Mass/Vol] None Detected 020 [facility] (04011) Ethanol Ql (Bld) <10 <10 mg/dL 03-22-2020 OS [facility] (00917) Cobalamin (Vitamin 534 211 - 911 pg/mL 03-22-2020 [facility] B12) [Mass/Vol] [facility] (95635) Folate [Mass/Vol] 16.44 >5.38 ng/mL 03-22-2020 O [facility] (76004) Interpretation and Normal 03-22-2020 [facility] review of laboratory MEDICAL results [place] (79437) Anion gap [Moles/Vol] 15 7 - 17 mmol/L 03-22-20 20 [facility] (80030) Chloride [Moles/Vol] 105 98 - 108 mmol/L 0 [facility] (20531) CO2 [Moles/Vol] 21 22 - 30 mmol/L Low 03-22-2020 [facility] (50363) Creatinine [Mass/Vol] 1.11 0.7 - 1.3 mg/dL 03-22-20 20 [facility] (67941) GFR/1.73 sq >=60 >=60 mL/min 03-22-2020 [facility] M.predicted MDRD mL/min/1.73s /{1.73 MEDICAL (S/P/Bld) [Vol qM _m2} CENTE R rate/Area] ([facility]) Glucose [Mass/Vol] 142 70 - 99 mg/dL High 03-[facility] Interpretation and Abnormal 03-22-2020 [facility] review of laboratory MEDICAL results [place] ([facility]) Osmolality Calc 292 OTH - OTH 03-22-2020 [facility] [Osmolality] [facility] ([facility]) Potassium [Moles/Vol] 4.4 3.5 - 5 mmol/L 03-22-20 [facility] ([facility]) Sodium [Moles/Vol] 137 133 - 143 mmol/L 03-22-2020 [facility] ([facility]) Urea nitrogen 17 7 - 22 mg/dL 03-22-2020 [facility] [Mass/Vol] [facility] ([facility]) Urea 15 mg/mg 03-22-2020 [facility] nitrogen/Creatinine MEDICAL [Mass ratio] [place] ([facility]) Basophils (Bld) <0.04 0 - 0.09 10*3/u 03-22-2020 [facility] [#/Vol] [facility] ([facility]) Basophils/100 WBC 0.1 % 03-22-2020 [facility] (Bld) [facility] ([facility]) DIFF STATUS Electronic 03-22-2020 [facility] Differential [facility] ([facility]) Eosinophils (Bld) <0.04 0 - 0.48 10*3/u 03-22-2020 [facility] [#/Vol] L [facility] ([facility]) Eosinophils/100 WBC 0.0 % 03-22-2020 [facility] (Bld) [facility] ([facility]) Erythrocyte 13.0 10.9 - 14.3 % 03-22-2020 [facility] distribution width M EDICAL (RBC) [Ratio] [place] ([facility]) Hematocrit (Bld) 43.6 39.6 - 48.8 % 03-22-2020 [facility] [Volume fraction] ME DICAL [place] ([facility]) Hemoglobin (Bld) 14.1 13.4 - 16.8 g/dL 03-22-2020 [facility] [Mass/Vol] [facility] ([facility]) Immature granulocytes 0.17 <=0.08 K/uL High 03-22-20 20 [facility] (Bld) [#/Vol] [facility] ([facility]) Immature 1.0 % 03-22-2020 [facility] R granulocytes/100 WBC [facility] (Bld) [place] ([facility]) Interpretation and Abnormal 03-22-2020 [facility] review of laboratory MEDICAL results [place] ([facility]) Lymphocytes (Bld) 1.08 0.83 - 3.57 K/uL 03-22-2020 [facility] [#/Vol] [facility] ([facility]) Lymphocytes/100 WBC 6.1 % 03-22-2020 [facility] (Bld) [facility] ([facility]) MCH (RBC) [Entitic 29.4 26.1 - 33.3 pg 0 [facility] mass] [facility] ([facility]) MCHC (RBC) [Mass/Vol] 32.3 31.9 - 36.5 g/dL 2019 [facility] ([facility]) MCV (RBC) [Entitic 90.8 79 - 94.5 fL 03-22-2020 [facility] vol] [facility] ([facility]) Monocytes (Bld) 0.72 0.24 - 0.93 K/uL 03-22-2020 [facility] [#/Vol] [facility] ([facility]) Monocytes/100 WBC 4.1 % 03-22-2020 [facility] (Bld) [facility] (89820) Neutrophils (Bld) 15.59 1.57 - 6.19 K/uL High 03-22-2020 [facility] [#/Vol] [facility] ([facility]) Nucleated RBC/100 WBC 0.0 <=0.2 /100 % 020 [facility] (Bld) [Ratio] WBC [facility] ([facility]) Platelet mean volume 10.5 8.7 - 12.3 fL 03-22-20 20 [facility] (Bld) [Entitic vol] [facility] (18144) Platelets (Bld) 246 146 - 337 K/uL 03-22-2020 [facility] [#/Vol] [facility] (88865) RBC (Bld) [#/Vol] 4.80 OTH - OTH 10*6/u 03-22-2020 [facility] L [facility] ([facility]) Segmented 88.7 % 03-22-2020 [facility] R neutrophils/100 WBC MEDICAL ([facility]) [place] ([facility]) WBC (Bld) [#/Vol] 17.58 3.73 - 10.1 K/uL High 03-22-2020 [facility] ([facility]) Interpretation and Normal 03-22-2020 [facility] review of laboratory [facility] results [place] ([facility]) TSH Qn 1.186 OTH - OTH m[IU]/ 03-22-2020 [facility] ([facility]) Calcium [Mass/Vol] 9.1 8.6 - 10.5 mg/dL 03-22-2020 [facility] ([facility]) Interpretation and Normal 03-22-2020 [facility] review of laboratory [facility] results [place] ([facility]) Magnesium [Mass/Vol] 1.8 1.6 - 2.6 mg/dL 0 [facility] ([facility]) Comment: Moderate Hemolysis Interpretation and review Normal 03-08 [facility] laboratory results [place] ([facility]) SARS-COV-2 NOT DETECTED NOT DETECTED 03-22-[address] [facility] (43 210) Comment: Negative results do not [...] has [address] TER been approved for (4 7061) the qualitative detection of SARS-CoV-2 nucleic acid. The test has been authorized by the FDA under an emergency use authorization for use by authorized laboratories. ANALYSIS DATE AND 03/22/2020 02:05 03-22 [facility] TIME [facility] (56499) Base excess Calc -2.7 -3 - 3 mmol/L 03-22-2020 [facility] (Bld) [Moles/Vol] [facility] (86147) CO2 (Bld) [Partial 39.1 OTH - OTH mm[Hg] 03-22-2020 [facility] pressure] [facility] (07298) HCO3 (Bld) 22.2 22 - 26 mmol/L 03-22-2020 [facility] [Moles/Vol] [facility] (14525) Interpretation and Abnormal 03-22-2020 [facility] review of laboratory MEDICAL results [place] ([facility]) Lactate [Moles/Vol] 3.02 0.5 - 1.6 mmol/L High 03-22-2020 [facility] (06481[facility] Oxygen (Bld) [Partial <35.0 OTH - OTH mm[Hg] Low 03-22-20 20 [facility] pressure] [facility] (30654) Comment: Reportable Range Violation Oxygen/Inspired gas 21 % 03-22-2020 [facility] setting [Volume [facility] Fraction] Ventilator (37424) pH (Bld) 7.372 OTH - OTH [pH] 03-22-2020 [facility] (28596) RECEIVED DATE AND TIME 03/22/2020 02:00 03-22-2020 [facility] (29300) SAMPLE SOURCE Venous 03-22-2020 [facility] (10368) TEST PANEL GASVL 03-22-2020 [facility] (23803) Shikha Harvey MD - 03/22/2020 1:59 AM EDT 03-22-2020 [facility] Lumbar Puncture [facility] Performed by: Shikha Harvey MD ([id number]) Authorized by: German Espino MD Location of procedure: ED [place] Protocol Immediately prior to procedu re a time out was called to verify the correct patient, procedure, equipment, arch support technician and site/side marked as required Additional Info [...] 2020-03-21 Appearance (U) Clear Clear Normal 03-21-2020 [facility] (74896) Comment: Performed By: #### PTISTR, P TT #### [facility] ([facility]) [address] [place] [address] 93499 Color (U) Yellow Yellow Normal 03-21-2020 [facility] (66275) Comment: Performed By: #### PTISTR, P TT #### [facility] ([facility]) [address] [place] [address] 78432 Leukocyte esterase Test Negative Negative Normal 2019 [facility] Ql (U) CENTER (26597) Comment: Performed By: #### PTISTR, P TT #### [facility] ([facility]) [address] [place] [address] 37028 pH (U) 5.5 5.0 - 7.0 [pH] Normal 03-21-2020 [facility] (94409) Comment: Performed By: #### PTISTR, P TT #### [facility] ([facility]) [address] [place] [address] 52606 Protein (U) [Mass/Vol] 100 mg/dL Negative mg/dL Abnormal 020 [facility] (43 210) Comment: Performed By: #### PTISTR, P TT #### [facility] ([facility]) [address] [place] [address] 80577 RBC LM.HPF (Urine sed) 0-2 Normal 020 [facility] [#/Area] (09286) Comment: Performed By: #### PTISTR, P TT #### [facility] ([facility]) [address] [place] [address] 67432 WBC LM.HPF (Urine sed) 0-5 Normal 020 [facility] [#/Area] (84006) Comment: Performed By: #### PTISTR, P TT #### [facility] ([facility]) [address] [place] [address] 31516 tsh on 2020-03-21 TSH Qn 1.186 0.550-4.780 uIU/mL Normal 03-21-2020 [facility] nter (28113) Comment: Performed By: #### PTISTR, P TT #### [facility] ([facility]) [address] [place] [address] 05382 troponin on 2020-03 Troponin I.cardiac 0.01 <0.11 ng/mL Normal 03-21-2020 [facility] [Mass/Vol] [facility] (96328) Comment: Performed By: #### PTISTR, P TT #### [facility] ([facility]) [address] [place] [address] 16719 toxicology screen urine - udrg on 2020-03-21 Cannabinoids Screen None Detected Cutoff: 50 Normal 03-21 [facility] Ql (U) ng/mL MEDICAL CE NTER (61554) Comment: Order Comment: For Medical P urposes Only. Nonforensic screen results are considered presumptive and n o confirmatory testing will follow. Drugs are detected by immunoassay or L iquid Chromatography Mass Spectrometry (LC-MS/MS). The LC-MS/MS blaze t was developed and its performance characteristics determined b y the Toxicology Laboratory at [facility] nter. It has not been [...] m(200), Alprazolam(50), Amitriptyline(50), Amphetamine(250), Atenolol(5 00),Benzoylecgonine(50), Buprenorphine(100), Bupropion(25),Caffeine(44335 ),Chlordiazepoxide(50), Chlorpheniramine(100), Chlorpromazine(50), Citalopr am(100), Clonazepam(200), Cocaine(25),Codeine(200), [...] Performed By: #### PTISTR, P TT #### [facility] ([facility]) [address] [place] [address] salicylate level on 2020-03-21 Salicylate 5.0 Therapeutic Range: mg/dL Normal 03-21-2020 [facility] 20.0-30.0 mg/dL [facility] (42593) Comment: Result Comment: Repeated and verified. Performed By: #### CKB, C7ED , HFP, ACTMJ, SALIJ, CA, MGO, TSH #### [facility] ([facility]) [address] [place] [address] 20966 ptt on 2020-03-21 aPTT Coag (Bld) [Time] 27.0 24.0-34.3 sec Normal 020 [facility] (94632) Comment: Performed By: #### PTISTR, P TT #### [facility] ([facility]) [address] [place] [address] 13398 ptinr-stroke on INR Coag (PPP) [Relative 1.0 0.9-1.1 {INR} Normal 03-21 [facility] time] [facility] (50575) Comment: Performed By: #### PTISTR, P TT #### [facility] ([facility]) [address] [place] [address] 58751 PT Coag (PPP) [Time] 13.5 11.9-14.2 sec Normal 0 [facility] (91999) Comment: Performed By: #### PTISTR, P TT #### [facility] ([facility]) [address] [place] [address] 69548 magnesium on 03-21 Magnesium [Mass/Vol] 1.8 1.6-2.6 mg/dL Normal 0 [facility] (88709) Comment: Result Comment: Moderate Hem olysis Performed By: #### PTISTR, P TT #### [facility] ([facility]) [address] [place] [address] 55957 hepatic function panel on 2020-03-21 Albumin [Mass/Vol] 4.4 3.5-5.0 g/dL Normal 03-21-2020 [facility] (16350) Comment: Performed By: #### CKB, C7ED , HFP, ACTMJ, SALIJ, CA, MGO, TSH #### [facility] ([facility]) [address] [place] [address] 43374 ALP [Catalytic activity/Vol] 44 32-126 U/L Normal 0 03-21-2020 [facility] (82537) Comment: Performed By: #### CKB, C7ED , HFP, ACTMJ, SALIJ, CA, MGO, TSH #### [facility] ([facility]) [address] [place] [address] 82531 ALT [Catalytic activity/Vol] 33 10-52 U/L Normal 0 03-21-2020 [facility] (36406) Comment: Result Comment: Slightly hem olyzed Performed By: #### CKB, C7ED , HFP, ACTMJ, SALIJ, CA, MGO, TSH #### [facility] ([facility]) [address] [place] [address] 97367 AST [Catalytic activity/Vol] 39 14-40 U/L Normal 0 03-21-2020 [facility] (50424) Comment: Result Comment: Slightly hem olyzed Performed By: #### CKB, C7ED , HFP, ACTMJ, SALIJ, CA, MGO, TSH #### [facility] ([facility]) [address] [place] [address] 15831 Bilirubin [Mass/Vol] 0.6 <1.5 mg/dL Normal 0 [facility] nter (61449) Comment: Result Comment: Slightly hem olyzed Performed By: #### CKB, C7ED , HFP, ACTMJ, SALIJ, CA, MGO, TSH #### [facility] ([facility]) [address] [place] [address] 13395 Bilirubin.direct [Mass/Vol] 0.1 0.0-<0.3 mg/dL Normal [facility] (26016) Comment: Result Comment: Slightly hem olyzed Performed By: #### CKB, C7ED , HFP, ACTMJ, SALIJ, CA, MGO, TSH #### [facility] ([facility]) [address] [place] [address] 52045 Protein [Mass/Vol] 7.3 6.4-8.3 g/dL Normal 03-21-2020 [facility] (84930) Comment: Performed By: #### CKB, C7ED , HFP, ACTMJ, SALIJ, CA, MGO, TSH #### [facility] ([facility]) [address] [place], [place] [id number] ct stroke head-stroke alert only on 2020-03-21 CT STROKE EXAM: CT STROKE HEAD-STROKE ALERT ONLY, 03/21/2020 9:11 PM Normal 03-21-2020 [facility] HEAD-STROKE ALERT COMPARISON: CT head from out side hospital dated 1506 on March 21, 2020 [facility] ONLY available in Textic at the time of this [facility] CLINICAL INDICATIONS: 64 years Male stroke; reportedly found unresponsive (40312) with last known well prior to midnight [...] were discussed with Ana Burns MD at 8979 on Mar. I personally viewed and interpreted these images and I have reviewed and approved this report. ck on 2020-03-21 CK [Catalytic activity/Vol] 161 30-220 U/L Normal [facility] (83327) Comment: Result Comment: Slightly hem olyzed Performed By: #### CKB, C7ED , HFP, ACTMJ, SALIJ, CA, MGO, TSH #### [facility] ([facility]) [address] [place] [id number] chm 7 - ed on 03-21 Anion gap [Moles/Vol] 16 7-17 mmol/L Normal 03-21-20 20 [facility] nter ([id number]) Comment: Performed By: #### CKB, C7ED , HFP, ACTMJ, SALIJ, CA, MGO, TSH #### [facility] ([facility]) [address] [place] [address] 91602 Chloride [Moles/Vol] 102 98-108 mmol/L Normal 0 [facility] nter (60730) Comment: Performed By: #### CKB, C7ED , HFP, ACTMJ, SALIJ, CA, MGO, TSH #### [facility] (Dale JOSE) [address] [place] [address] 01093 CO2 [Moles/Vol] 21 22-30 mmol/L Low 03-21-2020 [facility] (00 000) Comment: Performed By: #### CKB, C7ED , HFP, ACTMJ, SALIJ, CA, MGO, TSH #### [facility] (Dale [facility]) [address] [place] [address] 81581 Creatinine [Mass/Vol] 1.11 0.70-1.30 mg/dL Normal 03-21-20 20 [facility] (98090) Comment: Performed By: #### CKB, C7ED , HFP, ACTMJ, SALIJ, CA, MGO, TSH #### [facility] (Dale DIAZ) [address] [place] [address] 30014 EST GFR, 60 >=60 mL/min/1.73sqM Normal 03-21-20 [facility] (12424) Comment: Performed By: #### CKB, C7ED , HFP, ACTMJ, SALIJ, CA, MGO, TSH #### U [facility] (Dale DIAZ) [address] [place] [address] 51955 EST GFR,Non 60 >=60 mL/min/1.73sqM Normal 03-21 [facility] (06494) Comment: Performed By: #### CKB, C7ED , HFP, ACTMJ, SALIJ, CA, MGO, TSH #### U [facility] (Dale DIAZ) [address] [place] [address] 65689 Glucose [Mass/Vol] 150 70-99 mg/dL High 03-21-2020 [facility] nter (55700) Comment: Performed By: #### CKB, C7ED , HFP, ACTMJ, SALIJ, CA, MGO, TSH #### U [facility] (Dale DIAZ) [address] [place] [address] 04777 Osmolality [Osmolality] 288 278-305 mOsm/kg Normal 2019 [facility] (60708) Comment: Performed By: #### CKB, C7ED , HFP, ACTMJ, SALIJ, CA, MGO, TSH #### U [facility] (Dale DIAZ) [address] [place] [address] 45358 Potassium [Moles/Vol] 5.1 3.5-5.0 mmol/L High 03-21-20 [facility] nter (86383) Comment: Result Comment: Slightly hem olyzed Performed By: #### CKB, C7ED , HFP, ACTMJ, SALIJ, CA, MGO, TSH #### U [facility] (Dale DIAZ) [address] [place] [address] 86397 Sodium [Moles/Vol] 134 133-143 mmol/L Normal 03-21-2020 [facility] nter (39708) Comment: Performed By: #### CKB, C7ED , HFP, ACTMJ, SALIJ, CA, MGO, TSH #### [facility] [address] [place] [address] 51231 Urea nitrogen [Mass/Vol] 15 7-22 mg/dL Normal 03-21 [facility] nter (46847) Comment: Performed By: #### CKB, C7ED , HFP, ACTMJ, SALIJ, CA, MGO, TSH #### [facility] ([facility]) [address] [place] [address] 56518 Urea nitrogen/Creatinine [Mass 14 mg/mg Normal 03-21-2020 [facility] ratio] [facility] (13707) Comment: Performed By: #### CKB, C7ED , HFP, ACTMJ, SALIJ, CA, MGO, TSH #### [facility] ([facility]) [address] [place] [address] 53446 cbc and electronic diff on 2020-03-21 Basophils (Bld) [#/Vol] 0.04 0.00-0.09 K/uL Normal 2019 [facility] (59155) Comment: Performed By: #### [id number] ## ## [facility] ([facility]) [address] [place] [address] 23484 Basophils/100 WBC (Bld) 0.1 % Normal 2019 [facility] nter (92264) Comment: Performed By: #### [id number] ## ## [facility] ([facility]) [address] [place] [address] 81724 DIFF STATUS Electronic Differential Normal 03-08 [facility] (51386) Comment: Performed By: #### [id number] ## ## [facility] ([facility]) [address] [place] [address] 45296 Eosinophils (Bld) 0.04 0.00-0.48 K/uL Normal 03-21-2020 O [facility] [#/Vol] [facility] (90647) Comment: Performed By: #### [id number] ## ## U [facility] ([facility]) [address] [place] [address] 00305 Eosinophils/100 WBC (Bld) 0.1 % Normal 03-08 [facility] nter (32942) Comment: Performed By: #### [id number] ## ## Keren [facility] ([facility]) [address] [place] [address] 52977 Hematocrit (Bld) [Volume 46.2 39.6-48.8 % Normal 03-21 [facility] fraction] [facility] (88118) Comment: Performed By: #### [id number] ## ## Keren [facility] ([facility]) [address] [place] [address] 67483 Hemoglobin (Bld) 15.2 13.4-16.8 g/dL Normal 03-21-2020 [facility] [Mass/Vol] [facility] (67640) Comment: Performed By: #### [id number] ## ## [facility] ([facility]) [address] [place] [address] 51687 Immature Grans % 0.4 % Normal 03-21-2020 [facility] (00 000) Comment: Performed By: #### [id number] ## ## Keren [facility] ([facility]) [address] [place] [address] 66125 Immature Grans Absolute 0.07 <=0.08 K/uL Normal 2019 [facility] (45559) Comment: Performed By: #### [id number] ## ## U [facility] ([facility]) [address] [place] [address] 84520 Lymphocytes (Bld) 0.96 0.83-3.57 K/uL Normal 03-21-2020 O [facility] [#/Vol] [facility] (55787) Comment: Performed By: #### [id number] ## ## [facility] ([facility]) [address] [place] [address] 88402 Lymphocytes/100 WBC (Bld) 5.6 % Normal 03-08 [facility] nter (02500) Comment: Performed By: #### [id number] ## ## [facility] ([facility]) [address] [place] [address] 62465 MCV (RBC) [Entitic vol] 89.2 79.0-94.5 fL Normal 2019 [facility] (45644) Comment: Performed By: #### [id number] ## ## [facility] ([facility]) [address] [place] [address] 77157 Mean Cell Hgb 29.3 26.1-33.3 pg Normal 03-21-2020 [facility] nter (03776) Comment: Performed By: #### [id number] ## ## [facility] ([facility]) [address] [place] [address] 80042 Mean Cell Hgb Conc 32.9 31.9-36.5 g/dL Normal 03-21-2020 [facility] nter (01844) Comment: Performed By: #### [id number] ## ## [facility] ([facility]) [address] [place] [address] 82610 Monocytes (Bld) [#/Vol] 0.13 0.24-0.93 K/uL Low 2019 [facility] (00108) Comment: Performed By: #### [id number] ## ## [facility] ([facility]) [address] [place] [address] 79910 Monocytes/100 WBC (Bld) 0.8 % Normal 2019 [facility] nter (68327) Comment: Performed By: #### [id number] ## ## [facility] ([facility]) [address] [place] [address] 28500 Nucleated RBC (Bld) 0.0 <=0.2 /100 WBC Normal 03-21-2020 [facility] [#/Vol] [facility] (96149) Comment: Performed By: #### [id number] ## ## [facility] ([facility]) [address] [place] [address] 81881 Platelet mean volume 10.2 8.7-12.3 fL Normal 0 [facility] (Bld) [Entitic vol] [facility] (46398) Comment: Performed By: #### [id number] ## ## [facility] ([facility]) [address] [place] [address] 66434 Platelets (Bld) [#/Vol] 247 146-337 K/uL Normal 2019 [facility] (07258) Comment: Performed By: #### [id number] ## ## [facility] ([facility]) [address] [place] [address] 83237 RBC (Bld) [#/Vol] 5.18 4.38-5.83 M/uL Normal 03-21-2020 O [facility] nter (03698) Comment: Performed By: #### [id number] ## ## Keren [facility] ([facility]) [address] [place] [address] 98463 RBC (Bld) [#/Vol] 13.0 10.9-14.3 % Normal 03-21-2020 O [facility] nter (49749) Comment: Performed By: #### [id number] ## ## [facility] ([facility]) [address] [place] [address] 68289 Segs + Bands Auto 93.0 % Normal 03-21-2020 O [facility] (00 000) Comment: Performed By: #### [id number] ## ## [facility] ([facility]) [address] [place] [address] 99740 Segs + Bands,Absolute Auto 15.85 1.57-6.19 K/uL High [facility] (44203) Comment: Performed By: #### [id number] ## ## [facility] ([facility]) [address] [place] [address] 78332 WBC (Bld) [#/Vol] 17.04 3.73-10.10 K/uL High 03-21-2020 [facility] nter (27246) Comment: Performed By: #### [id number] ## ## [facility] (Dale DIAZ) [address] [place] [address] 90628 calcium on Calcium [Mass/Vol] 9.1 8.6-10.5 mg/dL Normal 03-21-2020 [facility] nter (56595) Comment: Performed By: #### CKB, C7ED , HFP, ACTMJ, SALIJ, CA, MGO, TSH #### [facility] (Dale DIAZ) [address] [place] [address] 38991 acetaminophen level on 2020-03-21 Acetaminophen 10.0 Therapeutic Range: mcg/mL Normal 020 [facility] [Mass/Vol] 10-32 mcg/mL [facility] nter (42191) Comment: Performed By: #### CKB, C7ED , HFP, ACTMJ, SALIJ, CA, MGO, TSH #### [facility] (Dale DIAZ) [address] [place] [address] 34439 Icterus 0 Normal 03-21-2020 [facility] (65222) Comment: Performed By: #### CKB, C7ED , HFP, ACTMJ, SALIJ, CA, MGO, TSH #### [facility] (Dlae DIAZ) [address] [place] [address] 66469 No panel information on 2020-03-21 Barbiturates Ql None Detected Cutoff: 200 03-21-20 20 [facility] (U) ng/mL MEDICAL CENTER (53611) Drugs identified Diphenhydramine None Detected Abnormal [facility] Screen Nom (U) MEDIC AL CENTER (24333) Interpretation Abnormal 03-21-2020 [facility] and review of MEDICA L laboratory CENTER results (38841) For Medical Purposes 0 [facility] Only. Nonforensic ME DICAL screen results are C ENTER considered (36125) presumptive and no confirmatory testing will follow. Drugs are detected by immunoassay or Liquid Chromatography Mass Spectrometry (LC-MS/MS). The LC-MS/MS test was developed and its performance characteristics determined by the Toxicology Laboratory at [facility]. It has not been cleared or [...] Alprazolam(50), Amitriptyline(50), Amphetamine(250), Atenolol(500),Benzoyl ecgonine(50), Buprenorphine(100), Bupropion(25),Caffein e(12988),Chlordiazepo xide(50), Chlorpheniramine(100) , Chlorpromazine(50), Citalopram(100), Clonazepam(200), Cocaine(25),Codeine(2 [...] 47 umo 03-21-2020 [facility] [Mass/Vol] l/[facility] (52726) Interpretation Normal 03-21-2020 [facility] and review of MEDICA laboratory CENTER results (07249) EXAM: XR CHEST AP 03-21-2020 [facility], [facility] 03/21/2020 21:50 PM CENTER COMPARISON: No prior (50157) studies available for comparison. CLINICAL INDICATIONS: unresponsive [...] COMPARISON: No prior studies available for comparison. [facility] (70087) CLINICAL INDICATIONS: unresponsive RELEVANT CLINICAL HISTORY: FINDINGS: [...] High 03-21-2020 [facility] [Mass/Vol] dL [facility] (42984) Interpretation Abnormal 03-21-2020 [facility] and review of [facility] laboratory CENTER results (79240) Poc Sample Type CAPBL 03-21-2020 [facility] (19245) Test performed at 03-21-2020 [facility] address of the [facility] patient encounter. C ENTER (33180) Interpretation Normal 03-21-2020 [facility] and review of [facility] laboratory CENTER results (17604) Troponin <0.01 <0.11 ng/mL ng/ 03-21-2020 [facility] I.cardiac DL <= mL MEDI ERNST 0.01 ng/mL [place] [Mass/Vol] (74059) Bacteria LM Ql ABSENT ABSENT 03-21-2020 [facility] (Urine sed) [facility] (27365) Glucose Test Negative Negative 03-21-2020 [facility] strip (U) [facility] [Mass/Vol] [facility] (00116) Interpretation Abnormal 03-21-2020 [facility] and review of [facility] laboratory CENTER results (74295) Ketones (U) Trace Negative Abnormal 03-21-2020 [facility] [Mass/Vol] [facility] (98801) Nitrite Ql (U) Negative Negative 03-21-2020 [facility] ([facility]) RBC (U) [#/Vol] Trace Negative Abnormal 03-21-2020 [facility] ([facility]) Specific gravity <=1.005 OTH - OTH 03-21-2020 [facility] (U) [Rel density] FL DICAL [place] ([facility]) Squamous/Epitheli 1/hpf = 1+ 1/hpf = 1+, 0 [facility] al Cells 2-5/hpf = 2+, MEDICA L 0/hpf = 0+, CENTER ABSENT (36075) Urobilinogen (U) 0.2 E.U./dL 0.2 - 1.0 03-21-2020 [facility] [Mass/Vol] [facility] ([facility]) Interpretation Normal 03-21-2020 [facility] and review of [facility] laboratory CENTER results ([facility] Salicylates <5.0 Therapeutic mg/ 03-21-2020 [facility] [Mass/Vol] Range: dL [facility] 20.0-30.0 [place] mg/dL mg/dL ([facility]) Comment: Repeated and verified. Acetaminophen <10.0 Therapeutic Range: 020 [facility] [Mass/Vol] 10-32 mcg/mL mcg/mL [facility] ([facility]) Icterus 0 03-21-2020 [facility] ([facility]) Albumin [Mass/Vol] 4.4 3.5 - 5 g/dL 03-21-[address] [facility] ([facility]) ALP [Catalytic 44 32 - 126 U/L 03-21-2020 [facility] activity/Vol] [facility] ([facility]) ALT [Catalytic 33 10 - 52 U/L 03-21-2020 [facility] activity/Vol] [facility] ([facility]) Comment: Slightly hemolyzed Anion gap [Moles/Vol] 16 7 - 17 mmol/L 03-21-20 20 [facility] (88642) AST [Catalytic activity/Vol] 39 14 - 40 U/L 0 03-21-2020 [facility] ([facility]) Comment: Slightly hemolyzed Bilirubin [Mass/Vol] 0.6 <1.5 mg/dL 0 [facility] (53773) Comment: Slightly hemolyzed Bilirubin.direct [Mass/Vol] 0.1 0 - 0.3 mg/dL [facility] (81388) Comment: Slightly hemolyzed Chloride [Moles/Vol] 102 98 - 108 mmol/L 0 [facility] (43 210) CK [Catalytic activity/Vol] 161 30 - 220 U/L [facility] (43 210) Comment: Slightly hemolyzed CO2 [Moles/Vol] 21 22 - 30 mmol/L Low 03-21-2020 [facility] (32383) Creatinine [Mass/Vol] 1.11 0.7 - 1.3 mg/dL 03-21-20 [facility] (70456) GFR/1.73 sq >=60 >=60 mL/min/{1.73_ 03-21-2020 [facility] M.predicted MDRD mL/min/1.73 m2} M EDICAL CENTER (S/P/Bld) [Vol sqM (4321 0) rate/Area] Glucose [Mass/Vol] 150 70 - 99 mg/dL High 03-21-2020 [facility] (73791) Interpretation and Normal 03-21-2020 [facility] review of laboratory [facility] CENTER results (12973) Interpretation and Abnormal 03-21-2020 [facility] review of laboratory [facility] CENTER results (07280) Osmolality Calc 288 OTH - OTH 03-21-2020 [facility] [Osmolality] [facility] (37745) Potassium [Moles/Vol] 5.1 3.5 - 5 mmol/L High 03-21-20 [facility] (94919) Comment: Slightly hemolyzed Protein [Mass/Vol] 7.3 6.4 - g/dL 03-21-2020 [facility] 8.3 [facility] (94752) Sodium [Moles/Vol] 134 133 - mmol/L 03-21-2020 [facility] 143 [facility] (23722) Urea nitrogen 15 7 - 22 mg/dL 03-21-2020 [facility] [Mass/Vol] [facility] (63220) Urea 14 mg/mg 03-21-2020 [facility] nitrogen/Creatinine MEDICAL [Mass ratio] [facility] (38489) EXAM: CT STROKE 03-21-2020 [facility] HEAD-STROKE ALERT ME DICAL ONLY, 03/21/2020 9:11 CENTER PM COMPARISON: CT (4 6060) head from outside hospital dated 150 on March 21, 2020 as available in Textic at the time of this dictation CLINICAL [...] air cells. IMPRESSION: No acute 0 [facility] intracranial MEDICAL hemorrhage. CENTER Hypoattenuation along (87282) the anterior right basal ganglia is unchanged [...] March 21, 2020 as CENTER available in Textic at the time of this dictation (06818) CLINICAL INDICATIONS: 64 years Male stroke; reportedly [...] OT - s 03-21-2020 [facility] [Time] [facility] (27880) INR Coag (Bld) 1.0 OT - {INR} 03-21-2020 [facility] [Relative time] [facility] (01399) Interpretation and Normal 03-21-2020 [facility] review of laboratory MEDICAL results [place] ([facility]) PT Coag (PPP) [Time] 13.5 OTH - s 0 [facility] Basophils (Bld) <0.04 0 - 0.09 10*3/uL 03-21-2020 [facility] [#/Vol] [facility] ([facility]) Basophils/100 WBC 0.1 % 03-21-2020 [facility] (Bld) [facility] ([facility]) DIFF STATUS Electronic 03-21-2020 [facility] Differential [facility] ([facility]) Eosinophils (Bld) <0.04 0 - 0.48 10*3/uL 03-21-2020 [facility] [#/Vol] [facility] ([facility]) Eosinophils/100 WBC 0.1 % 03-21-2020 [facility] (Bld) [facility] ([facility]) Erythrocyte 13.0 10.9 - % 03-21-2020 [facility] distribution width 14.3 M EDICAL (RBC) [Ratio] CENTER ([facility]) Hematocrit (Bld) 46.2 39.6 - % 03-21-2020 [facility] [Volume fraction] 48.8 ME DICAL [place] ([facility]) Hemoglobin (Bld) 15.2 13.4 - g/dL 03-21-2020 [facility] [Mass/Vol] 16.8 [facility] ([facility]) Immature 0.07 <=0.08 K/uL 03-21-2020 [facility] R granulocytes (Bld) M EDICAL [#/Vol] [place] ([facility]) Immature 0.4 % 03-21-2020 [facility] granulocytes/100 WBC MEDICAL (Bld) [place] ([facility]) Interpretation and Abnormal 03-21-2020 [facility] review of laboratory MEDICAL results [place] ([facility]) Lymphocytes (Bld) 0.96 0.83 - K/uL 03-21-2020 [facility] [#/Vol] 3.57 [facility] ([facility]) Lymphocytes/100 WBC 5.6 % 03-21-2020 [facility] (Bld) [facility] ([facility]) MCH (RBC) [Entitic 29.3 26.1 - pg 03-21-2020 [facility] mass] 33.3 [facility] ([facility]) MCHC (RBC) 32.9 31.9 - g/dL 03-21-2020 [facility] [Mass/Vol] 36.5 [facility] ([facility]) MCV (RBC) [Entitic 89.2 79 - fL 03-21-2020 [facility] vol] 94.5 [facility] ([facility]) Monocytes (Bld) 0.13 0.24 - K/uL Low 03-21-2020 [facility] [#/Vol] 0.93 [facility] ([facility]) Monocytes/100 WBC 0.8 % 03-21-2020 [facility] (Bld) [facility] ([facility]) Neutrophils (Bld) 15.85 1.57 - K/uL High 03-21-2020 [facility] [#/Vol] 6.19 [facility] ([facility]) Nucleated RBC/100 0.0 <=0.2 % 03-21-2020 [facility] WBC (Bld) [Ratio] /100 WBC FL DICAL [place] ([facility]) Platelet mean volume 10.2 8.7 - fL 0 [facility] (Bld) [Entitic vol] 12.3 [facility] ([facility]) Platelets (Bld) 247 146 - K/uL 03-21-2020 [facility] [#/Vol] 337 [facility] ([facility]) RBC (Bld) [#/Vol] 5.18 OTH - 10*6/uL 03-21-2020 [facility] ([facility]) Segmented 93.0 % 03-21-2020 [facility] R neutrophils/100 WBC [facility] (Bld) [place] ([facility]) WBC (Bld) [#/Vol] 17.04 3.73 - K/uL High 03-21-2020 [facility] 10.1 [facility] ([facility]) ANALYSIS DATE AND 03/21/2020 21:26 03-21 [facility] TIME [facility] ([facility]) Interpretation and Abnormal 03-21-2020 [facility] review of laboratory MEDICAL results [place] ([facility]) Lactate [Moles/Vol] 3.57 0.5 - mmol/L High 03-21-2020 [facility] 1.6 [facility] (36000) Oxygen/Inspired gas 21 % 03-21-2020 [facility] setting [Volume MEDI ERNST Fraction] Ventilator CENTER (84296) RECEIVED DATE AND 03/21/2020 21:24 03-21 [facility] TIME [facility] (38899) SAMPLE SOURCE Venous [facility]-2020 [facility]46963[facility] TEST PANEL BGLACT 03-21-2020 [facility] (53934) Vital Signs Vital Sign Description Value / Unit Date Location The following section is limited to 5 en tries per type and includes entries from the following time range: [id number] - [id number] 0. Body Temperature 97.2 [degF] 04-06-2020 [facility] MEDI [facility] (38317) Body weight 92 kg 03-25-2020 [facility] MEDIC AL [place] (97551) BP Diastolic 55 mm[Hg] 04-06-2020 [facility] MEDIC AL [place] (75645) BP Systolic 106 mm[Hg] 04-06-2020 [facility] MEDIC AL [place] (28682) Pulse (Heart Rate) 61 /min 04-06-[address] [facility] [place] (66002) Pulse Oximetry 93 % 04-06-2020 [facility] ([id number]) Respiratory Rate 16 /min 04-06-2020 [facility] ([id number]) Encounters Date Type Reason Provider Location 03-21-2020 - Evaluation and DILLON PEREZ Facility:[facility] 04-06-2020 [facility] of [facility] inpatient NEUROLOGY CONSULT LOYD SHANKS 03-21-2020 - Evaluation and Cerebrovascular [place] [id number] 04-06-2020 [facility] [facility] Comment: Altered mental status 06-21-2020 - 06-21-2020 Patient encounter External Pro vider [facility] procedure 06-21-2020 Results Only External Provider External-N onCCF Procedures Procedure Name Date Provider Location EXTERNAL IMAGING 06-21-2020 External Provider [facility] ([id number]) Assay of magnesium 04-06-2020 Kameron C [facility] (11780) Assay of phosphorus inorganic 04-06-2020 Kameron C [facility] (24299) CBC AND ELECTRONIC DIFF 04-06-2020 [facility] (43719) Complete blood count with 04-06-2020 [facility] white cell differential, CENTER (63529) automated Creatinine blood 04-06-2020 K[facility]on C [facility] (13298) Procalcitonin (pct) 04-06-2020 [facility] (56481) Urnls dip stick/tablet 04-05-[address] [facility] MEDICAL reagent auto microscopy CENTER ( 30040) Plain chest X-ray 04-05-2020 [facility] Ericka [facility] ICA CENTER (11337) Assay of magnesium 04-05-2020 Carly C [facility] (04389) Assay of phosphorus inorganic 04-05-2020 Carlychauncey Morrison [facility] (05239) CBC AND ELECTRONIC DIFF 04-05-2020 [facility] (07053) Complete blood count with 04-05-2020 [facility] white cell differential, CENTER (83595) automated Creatinine blood 04-05-2020 Kameron C [facility] (78111) Assay of magnesium 04-04-2020 Kameron C [facility] (26305) Assay of phosphorus inorganic 04-04-2020 [facility] (32930) Creatinine blood 04-04-2020 [facility] (06266) NOVEL CORONAVIRUS PCR 04-04-2020 Carly [facility] (53817) Assay of magnesium 04-04-2020 Carly C [facility] (62931) Assay of phosphorus inorganic 04-04-2020 Carly [facility] (40542) CBC AND ELECTRONIC DIFF 04-04-2020 [facility] (09142) Complete blood count with 04-04-2020 [facility] white cell differential, CENTER (75331) automated Creatinine blood 04-04-2020 [facility] (34333) Assay of magnesium 04-03-2020 [facility] (44300) Assay of phosphorus inorganic 04-03-2020 [facility] (15118) Creatinine blood 04-03-2020 [facility] (58545) Assay of magnesium 04-03-2020 [facility] (91960) Assay of phosphorus inorganic 04-03-2020 [facility] (56957) CBC AND ELECTRONIC DIFF 04-03-2020 [facility] (00293) Complete blood count with 04-03-2020 [facility] white cell differential, CENTER (23196) automated Creatinine blood 04-03-2020 [facility] (76350) Assay of magnesium 04-02-2020 [facility] (19634) Assay of phosphorus inorganic 04-02-2020 [facility] (69216) Creatinine blood 04-02-2020 [facility] (15407) Iadna s aureus amplified 04-02-2020 [facility] tq CENTER (89786) Assay of magnesium 04-02-2020 [facility] (63514) Assay of phosphorus inorganic 04-02-2020 [facility] (37432) CBC AND ELECTRONIC DIFF 04-02-2020 [facility] (54597) Complete blood count with 04-02-2020 [facility] (51827) automated Creatinine blood 04-02-2020 [facility] (96906) Procalcitonin (pct) 04-02-2020 Ramses Ericka Flanagan [facility] (01499) Assay of magnesium 04-01-2020 [facility] (98154) Assay of phosphorus inorganic 04-01-2020 [facility] (94223) Creatinine blood 04-01-2020 [facility] (97782) Plain chest X-ray 04-01-2020 [facility]arly [facility] (24802) Assay of magnesium 04-01-2020 [facility] (65242) Assay of phosphorus inorganic 04-01-2020 [facility] (42258) CBC AND ELECTRONIC DIFF 04-01-2020 [facility] (35840) Complete blood count with 04-01-2020 [facility] white cell differential, CENTER (44323) automated Creatinine blood 04-01-2020 [facility] (65975) Assay of magnesium 03-31-2020 [facility] (12050) Assay of phosphorus inorganic 03-31-2020 [facility] (61236) Creatinine blood 03-31-2020 [facility] (88536) Assay of magnesium 03-31-2020 [facility] (78081) Assay of phosphorus inorganic [facility]-31-[facility] (03440) CBC AND ELECTRONIC DIFF 03-31-2020 [facility] (16040) Complete blood count with 03-31-2020 [facility] white cell differential, CENTER (37332) automated Creatinine blood 03-31-2020 [facility] (78568) Assay of magnesium 03-30-2020 [facility] (23197) Assay of phosphorus inorganic 03-30-2020 [facility] (84768) Creatinine blood 03-30-2020 [facility] (21310) Assay of magnesium 03-30-2020 [facility] (74228) Assay of phosphorus inorganic 03-30-2020 [facility] (86119) CBC AND ELECTRONIC DIFF 03-30-2020 [facility] (60158) Complete blood count with 03-30-2020 [facility] white cell differential, CENTER (11164) automated Creatinine blood 03-30-2020 [facility] (71983) Assay of magnesium 03-29-2020 [facility] (59045) Assay of phosphorus inorganic 03-29-2020 [facility] (45084) Creatinine blood 03-29-2020 [facility] (67632) Fluoroscopy of esophagus 03-29-2020 Will [facility] (62494) SPEECH MODIFIED BARIUM 03-29-2020 [facility] (89075) CBC AND ELECTRONIC DIFF 03-29-2020 [facility] (88335) Complete blood count with 03-29-2020 [facility] white cell differential, CENTER (87394) automated Assay of magnesium 03-29-2020 [facility] (27450) Assay of phosphorus inorganic 03-29-2020 [facility] (16984) Creatinine blood 03-29-2020 [facility] (19199) Prothrombin time 03-29-2020 Goldy Gonzalez [facility] (07409) Diagnostic radiography of 03-28-2020 Tayo Rojas [facility] CENTER (13675) Assay of magnesium 03-28-2020 [facility] (82867) Assay of phosphorus inorganic 03-28-2020 [facility] (00321) Creatinine blood 03-28-2020 [facility] (83524) Assay of magnesium 03-28-2020 [facility] (72042) Assay of phosphorus inorganic 03-28-2020 [facility] (27828) CBC AND ELECTRONIC DIFF 03-28-2020 [facility] (51846) Complete blood count with 03-28-2020 [facility] white cell differential, CENTER (73144) automated Creatinine blood 03-28-2020 [facility] (46410) Assay of magnesium 03-27-2020 [facility] (62726) Assay of phosphorus inorganic 03-27-2020 [facility] (24765) CBC AND ELECTRONIC DIFF 03-27-2020 [facility] (18195) Complete blood count with 03-27-2020 [facility] white cell differential, CENTER (43559) automated Creatinine blood 03-27-2020 [facility] (94027) Assay of magnesium 03-26-2020 [facility] (04366) Assay of phosphorus inorganic 03-26-2020 [facility] (12767) Creatinine blood 03-26-2020 [facility] (47291) EXTRA MICRO 03-26-2020 [facility] (31774) URINALYSIS REFLEX TO CULTURE 03-26-2020 [facility] (58583) Urnls dip stick/tablet 03-26-2020 [facility] reagent auto microscopy CENTER ( 32583) CT of chest 03-26-2020 Will [facility] (22924) CT of abdomen and pelvis 03-26-2020 Will [facility] (90627) EXTRA DARK GREEN TOP 03-26-2020 [facility] (39603) EXTRA TUBES 03-26-2020 [facility] (93565) Assay of magnesium 03-26-2020 Kameron Barnett [facility] (41513) Assay of phosphorus inorganic 03-26-2020 Kameron C [facility] (44449) CBC AND ELECTRONIC DIFF 03-26-2020 [facility] (33569) Complete blood count with 03-26-2020 [facility] white cell differential, CENTER (95854) automated Creatinine blood 03-26-2020 [facility] (21747) Diagnostic radiography of 03-25-2020 Will [facility] (08138) Echocardiography 03-25-2020 [facility] enter (95803) Diagnostic radiography of 03-25-2020 Will [facility] abdomen [place] (22829) Transthoracic 03-25-2020 [facility] echocardiography CENTER (50329) Assay of lactate 03-25-2020 [facility] (75304) Hemoglobin glycosylated a1c 03-25-2020 [facility] (64010) Lipid panel 03-25-2020 Lam[facility] (17257) EXTRA DARK GREEN TOP 03-25-2020 [facility] (25780) EXTRA LIGHT BLUE TOP 03-25-2020 [facility] Rafia [facility] (70185) EXTRA SST GOLD TOP 03-25-2020 [facility] Rafia [facility] (64830) EXTRA TUBES 03-25-2020 [facility] Rafia [facility] DICAL CENTER (58554) CBC AND ELECTRONIC DIFF 03-25-2020 [facility] (00117) Complete blood count with 03-25-2020 [facility] white cell differential, CENTER (59432) automated Creatinine blood 03-25-2020 [facility] (16905) Lipid 1996 panel - Serum or 03-25-2020 [facility] Plasma [place]EEW[place]IN (10474) MRI of brain and brain stem 03-25-2020 Lamar Daly [facility] (92938) Duplex scan veins of upper 03-24-[address] [facility] CENTER (02593) Assay of ammonia 03-24-2020 Will [facility] (04628) Ultrasonography of abdomen 03-24-2020 Will [facility] (82709) Assay of lactate 03-24-2020 Will [facility] (21565) CBC AND ELECTRONIC DIFF 03-24-2020 [facility] (35068) Complete blood count with 03-24-2020 [facility] white cell differential, CENTER (42012) automated Creatinine blood 03-24-2020 [facility] (55534) Culture bct isol&prsmptv id 03-24-2020 [facility] isolate ea urine CENTER (86532) GENERAL PROCEDURE 03-23-2020 [facility] (82084) Drug screen quantitative 03-23-2020 Clotilde Vickers [facility] vancomycin CENTER (62965) Assay of lactate 03-23-2020 Will [facility] (47061) Carboxyhemoglobin 03-23-2020 Will C [facility] ICAL quantitative CENTER (01505) EXTRA LIGHT BLUE TOP 03-23-2020 [facility] (12646) EXTRA LAVENDER TOP 03-23-2020 [facility] (42556) EXTRA MINT GREEN TOP 03-23-2020 [facility] (61654) EXTRA TUBES 03-23-2020 [facility] DICAL CENTER (41344) CBC AND ELECTRONIC DIFF 03-23-2020 [facility] (83844) Complete blood count with 03-23-2020 [facility] white cell differential, CENTER (56189) automated Creatinine blood 03-23-2020 [facility] (93263) EXTRA STERILE 03-22-2020 [facility] DICAL CENTER (10435) EXTRA TUBES 03-22-2020 [facility] DICAL CENTER (06803) Cell count misc body fluids 03-22-2020 Rishan T Wes [facility] w/differential count CENTER (432 10) Cell count miscellaneous body 03-22-2020 Rishan T Wes [facility] CENTER (43063) Mechanical Cad Drafter dna/rna amp probe 03-22-2020 [facility] T Wes [facility] multiple subtypes 12-25 CENTER ( 16690) Glucose body fluid other than 03-22-2020 [facility] T Wes [facility] blood [place] (63431) Iaad ia cryptococcus 03-22-2020 [facility] neoformans CENTER (62839) Lumbar puncture using 03-22-2020 Will Ericka Flanagan [facility] fluoroscopic guidance CENTER (43 210) GENERAL PROCEDURE 03-22-2020 Cathy Mortensen [facility] (05006) Assay of lactate 03-22-2020 Will Ericka Flanagan [facility] (76619) Assay of folic acid serum 03-22-2020 [facility] (51919) CBC AND ELECTRONIC DIFF 03-22-2020 [facility] CENTER (38561) Complete blood count with 03-22-2020 [facility] white cell differential, CENTER (06185) automated Creatinine blood 03-22-2020 [facility] (48537) Cyanocobalamin vitamin b-12 03-22-2020 [facility] (60769) Drug test def 1-7 classes 03-22-2020 [facility] (40291) PROCEDURE - LUMBAR PUNCTURE 03-22-2020 [facility] (86002) Blood gases, venous 03-22-2020 [facility] measurement CENTER (88634) Assay of ammonia 03-21-2020 [facility] (95093) Bacteria identified in Blood 03-21-2020 - [facility] by Culture 03-21-2020 [place] (15874) NOVEL CORONAVIRUS PCR 03-21-2020 [facility] (55338) Drug tst prsmv instrmnt chem 03-21-2020 [facility] analyzers pr date CENTER (35451) EXTRA MICRO 03-21-2020 [facility] MEDIC AL CENTER (69625) URINALYSIS REFLEX TO CULTURE 03-21-2020 [facility] (94398) Urnls dip stick/tablet 03-21-2020 [facility] MEDICAL reagent auto microscopy CENTER ( 30923) Plain chest X-ray 03-21-2020 [facility] ICAL CENTER (27866) Assay of lactate 03-21-2020 [facility] (73628) Assay of magnesium 03-21-2020 [facility] (81080) Assay of thyroid stimulating 03-21-2020 [facility] hormone tsh CENTER (38540) Assay of troponin 03-21-2020 [facility] ICAL quantitative CENTER (39902) Bilirubin direct 03-21-2020 [facility] T [facility] (05717) Calcium total 03-21-2020 David J Haertling [facility] (29528) CBC AND ELECTRONIC DIFF 03-21-2020 [facility] (50502[facility] Complete blood count with 03-21-2020 Rishan T Wes [facility] white cell differential, CENTER (04204) automated Comprehensive metabolic panel 03-21-2020 Rishan T Wes [facility] (03809) Creatine kinase total 03-21-2020 Rishan T Wes [facility] (35164) Drug test def 1-7 classes 03-21-2020 - Rishan T Wes [facility] 03-21-2020 CENTER (82513) GOLD TOP TUBE 03-21-2020 Rishan T Wes [facility] (90998) LAVENDER TOP TUBE 03-21-2020 [facility] (54638) LT BLUE TOP TUBE 03-21-2020 Rishan T Wes [facility] (26526) MINT GREEN TOP TUBE 03-21-2020 Rishan T Wes [facility] (47976) Prothrombin time 03-21-2020 Rishan T Wes [facility] (35653) RAINBOW DRAW 03-21-2020 Rishan T Wes [facility] (48381) Thromboplastin time partial 03-21-2020 Rishan T Wes [facility] plasma/whole blood CENTER (11641 ) Standard ECG 03-21-2020 Rishan T Wes [facility] (16357) CT of entire head 03-21-2020 Rishan T Wes [facility] (72024) Glucose measurement, blood 03-21-2020 Tan Blue [facility] (32461) Colonoscopy 04-01-2013 [facility] (82539) Plan of Treatment Plan Description Date Location LIPID SCREENING LIPID SCREENING 03-25-2025 [facility] (21097) COLONOSCOPY COLONOSCOPY 04-01-2023 [facility] (26856) ADVANCE DIRECTIVE ADVANCE DIRECTIVE 11-15-2021 [facility] inic DISCUSSION DISCUSSION (81322) LIPID SCREEN LIPID SCREEN 09-07-2021 [facility] (85145) PROSTATE CANCER PROSTATE CANCER 09-07-2021 [facility] SCREENING DISCUSSION SCREENING DISCUSSION (48203 ) Office Visit 06/18/2020 Office Visit 06-18-2020 - Neurolog ical Neurology Randolph Walters, 06-18-2020 Multi- ecialty Care DO [address] [facility] [address] [place] [address] INFLUENZA VACCINE no information 06-08-2020 - [facility] (Season Ended) 2020 CENTER (35570) DIABETES SCREEN DIABETES SCREEN 11-06-2019 [facility] (28870) ABDOMINAL AORTIC ABDOMINAL AORTIC 2019 [facility] ANEURYSM HIGH RISK ANEURYSM HIGH RISK CENTER (09 210) SCREEN SCREEN PNEUMOCOCCAL VACCINE PNEUMOCOCCAL VACCINE 2019 [facility] SER[facility] (1 of 2 - PCV13) SERIES (1 of 2 - PCV13) CENTER (45776) PNEUMOVAX AGE 65 AND PNEUMOVAX AGE 65 AND 2019 [facility] OVER WITH 5YR LOOKBACK OVER WITH 5YR LOOKBACK (4 3831) (#1) (#1) ANNUAL PCP TEAM CHRONIC ANNUAL PCP TEAM CHRONIC 07-19-2018 [facility] DISEASE VISIT DISEASE VISIT (22563) COLORECTAL CANCER COLORECTAL CANCER 2004 [facility] SCREENING DISCUSSION SCREENING DISCUSSION CENTER (41717) PROSTATE CANCER PROSTATE CANCER 2004 [facility] SCREENING DISCUSSION SCREENING DISCUSSION CENTER (99898) SHINGRIX VACCINE (1 of SHINGRIX VACCINE (1 of 2004 [facility] 2) 2) (15370) ZOSTER (SHINGLES) ZOSTER (SHINGLES) 2004 [facility] V[facility]INE (1 of 2) VACCINE (1 of 2) CENTER (02344) TDAP (ADULT) TDAP (ADULT) 1973 [facility] (74048) DTAP,TDAP,TD (1 - Tdap) DTAP,TDAP,TD (1 - Tdap) 1973 [facility] (67070) HEPATITIS C SCREENING HEPATITIS C SCREENING [address] [facility] (85824) SPIROMETRY SPIROMETRY 1972 [facility] (78773) TETANUS TETANUS [address] [facility] (72311) HEPATITIS C VIRUS HEPATITIS C VIRUS 1954 [facility] S[facility] (95443) BLOOD CULTURE BLOOD CULTURE [facility] Microbiology Urgent CENTER (4321 0) 04/04/2020 6:45 PM EDT URINE CULTURE URINE CULTURE [facility] Microbiology Routine CENTER (432 10) 04/04/2020 6:45 PM EDT CELL COUNT & DIFF, CSF CELL COUNT & DIFF, CSF [facility] Fluids STAT 03/22/2020 CENTER (4 3210) 11:57 AM EDT EXTRA MINT GREEN TOP EXTRA MINT GREEN TOP [facility] Lab Routine 03/25/2020 CENTER (4 3210) 5:09 AM EDT EXTRA TUBES EXTRA TUBES Lab Routine [facility] 03/25/2020 5:09 AM EDT CENTER (4 0480) Immunizations Vaccine Notes Status Date Location INFLUENZA VACCINE influenza virus (completed) 08-23-2016 [facility] (Season Ended) vaccine, unspecified [facility] R (89760) formulation Influenza Seasonal influenza, injectable, (completed) 08-23-2016 [facility] Inj Quad Age 6 Mo - quadrivalent, contains (27336) 63 Yrs preservative Payers Payer Name Policy Number Location MEDICARE, MEDICARE [id number] BLAINE CROWLEY MEDICARE A AND B [id number] [facility] ([id number]) [id number] [facility] ([id number]) Social History Type Social History Description Date Locat ion Tobacco smoking status Unknown if ever smoked 03-24-2020 [facility] CENTER (99150) Sex Assigned At Not on file [facility] (18807) Exposure to SARS-CoV-2 Unable to assess [facility] MEDICAL (event) CENTER (75945) Tobacco smoking status Former smoker 10-22-2018 [facility] (99838) KYIS Tobacco use and exposure Never used 10-22-2018 [facility] (90225) Alcohol intake Current non-drinker of 10-22-2018 [facility] (29902) alcohol (finding) Tobacco Comment 6 years ago 07-19-2017 [facility] (57136) The following information is from the original human readable contentNo Social History Records Found Reason for Referral Status Reason Specialty Diagnoses / Referred By Referred To Procedures Contact Contact New Request Social Work Diagnoses Cerebrovascular accident (CVA), unspecified mechanism Loyd Shanks MD [address] [place] [address] Status Reason Specialty Diagnoses / Referred By Referred To Procedures Contact Contact New Request Neurology Diagnoses Cerebrovascular accident (CVA), unspecified mechanism Goldy Gonzalez MD M112 [facility] [address] [place], [place] [address] Status Reason Specialty Diagnoses / Procedures Referred By C ontact Referred To Contact Casey Baca MD [address] [facility] [place] [address] Phone: Status Reason Specialty Diagnoses / Referred By Referred To Procedures Contact Contact New Request Goldy Gonzalez MD M112 [facility] [address] [place], [place] [address] Status Reason Specialty Diagnoses / Referred By Referred To Procedures Contact Contact New Request Procedures Goldy Gonzalez MD RUQ/LIVER/GB M112 [facility] [address] [place], [place] [address] Status Reason Specialty Diagnoses / Referred By Referred To Procedures Contact Contact Pending Review Procedures Tan Blue MD [address] [place] [address] Hospital Course Carly Morrison MD - 04/06/2020 [...] during his recent hospital stay at [facility]. ? As you may know, Blaine Crowley, is a 64 y.o. male with a past medical history of stroke with residual right-sided hemiparesis (2012), seizure disorder on keppra, and renal cell carcinoma s/p nephrectomy who presented to [facility]2020 with altered mental status due [...] NG tube route every 6 hours. [address]: [address] [place] [address] Associated attestation - Loyd Shanks MD - [...] was 27 minutes. Signed, Loyd Shanks MD Preparer [employer] Repairs of Clinical medicine Department of Internal Medicine [...] worse. When should you call for help? [id number] anytime you think you may need emergency [...] Where can you learn more? Go to [email or web address]. Enter J452 in the search box to learn more about 'Altered Mental Status: Care Instructions.' Interested in seeing a video go to [email or web address] to see all video content. Current as of: August 27, 2019?Content Version: 12.5 ? [employer]. Care instructions adapted under license by your healthcare professional. If you have questions abouta medical condition or this instruction, always ask your healthcare professional. [employer] disclaims any warranty or liability for your [...] weekend, or holiday hours, please call: -[facility] [employer] balancing machine operator at [phone]. -[facility] balancing machine operator at [phone] Ask the balancing machine operator to page the on-call doctor for Medicine 6, the service that was responsible for your care while you were in the hospital. If you having an emergency, call 911. Cindy Rodriguez, [employer] Machine Operator [phone]. I am available Mon-Fri 8-5 (excluding holidays). [...] and Transportation Final Discharge Planning Discharge Disposition: Nursing Home Facility Services at Discharge: Nursing Home, Physical Therapy, Speech Therapy, Occupational Therapy Name For Handoff: [facility] Phone For Handoff: [phone] Fax For Handoff: Additional Community Agency Name(s): no Destination - Selection Complete Service Provider Request Status Selected Services Address Phone Number Fax Number [facility] Selected Jail [address] [place], [place] [id number] ? Plan Plan: DIscharge to Nursing Home Facility Patient/Family In Agreement With Plan: yes Air Carrier Maintenance Inspector Called: Yes Name of Transport Company: [employer] (ALS/BLS transport) ETA of Ambulance: 230-330pm Transfer [...] updated the bedside RN, CCM, facility and patient/retail wireless sales representative of the discharge plan and transport time. Patient/Training Director remain in agreement with the discharge plan. Bedside RN to call report and fax AVS/DENICE. Ambulance form left at the dehydration unit operator desk with a request for a printed transfer report. Discharge Instruction for Bedside RN: 1. Confirm the Ambulatory Order is in the DENICE. 2. Print the DENICE and AVS. 3. Print the Discharge Summary for facilities (if available). 4. Fax DENICE, AVS and Discharge Summary (when applicable) to agency or facility. 5. Call the agency or facility for report. PRIYA Longoria, [facility] Medical Social Work [phone] Mario Abraham - 04/06/2020 10:29 AM EDT [...] Mobility Skill: Scooting/Bridging, Rehab Eval Level of [place]: Scoot/Bridge dependent (less than 25% patients effort) Physical Assist/Nonphysical Assist: Scoot/Bridge 1 person assist Bed Mobility Skill: Sit to Supine, Rehab Eval Level of [place]: Sit/Supine dependent (less than 25% patients effort) Physical Assist/Nonphysical Assist: Sit/Supine 1 person assist Bed Mobility Skill: Supine to Sit, Rehab Eval Level of [place]: Supine/Sit maximum assist (25% patients effort) Physical Assist/Nonphysical Assist: Supine/Sit 1 person assist Transfer Skill: Sit To Stand, Rehab Eval [place] (Sit-Stand Transfers) unable to assess [facility] Basic Mobility Inpatient Short Form Turning over in bed 1 - Total Assistance Sitting/standing from chair 1 - Total Assistance Moving from lying on back to sitting 1 - Total Assistance Moving to and from bed to chair 1 - Total Assistance Walk in hospital room 1 - Total Assistance Climbing 3-5 steps with a railing 1 - Total Assistance CURRENT AM-[facility] Mobility Raw Score 6 CURRENT AM-PAC Mobility Functional Limitation/Modifier 100.00% Currently Impaired in Basic Mobility Currently Impaired in Basic Mobility - CN Projected AM-[facility] Mobility Raw Score 10 Projected AM-[facility] Mobility Functional Limitation/Modifier 76.75% Projected Functional Impairment [...] Summary. Mario New, PT, DPT License # [id number] Denise Cabello OT - 04/05/2020 2:33 PM [...] Supine to Sit, Rehab Eval Level of [place]: Supine/Sit dependent (less than 25% patients effort) Physical Assist/Nonphysical Assist: Supine/Sit set-up required;supervision;verbal cues;2 person assist Transfer Skill: Sit To Stand, Rehab Eval [place] (Sit-Stand Transfers) unable to assess BADL Evaluation Additional Documentation Yes Grooming [place] Level (Grooming) moderate assist (50% patient effort) Physical Assist/Nonphysical Assist set-up required;supervision;verbal cues;1 person assist (Pt requiring max cues and initial hand over hand A to initiate familiar grooming tasks; resistive at times. Pt able to initiate oral care and facial grooming with LUE with increased time; assist for thoroughness) Lower Body Dressing Level of [place] dependent (less than 25% patients effort) Physical [...] Assistance Eating 1 - Total Assistance CURRENT [facility] Activity Raw Score 8 [facility] Activity Functional Limitation/Modifier 85.69% Currently Impaired in [...] patient interaction. Denise Oates OTR/L License #: [id number] Pager #: [phone] Ofelia Palacios, PT - 04/05/2020 2:09 PM [...] Status Examination Orientation Status (Cognition) oriented to;person;place ([facility]) Level of Consciousness lethargic/somnolent Able to Follow Commands (Communication) severe impairment Personal Safety and Judgment impaired;at risk behaviors demonstrated General Pain Documentation (Adult, OB, Peds) Presence of Pain denies pain/discomfort Bed Mobility Skill: Supine to Sit, Rehab Eval Level of [place]: Supine/Sit dependent (less than 25% patients effort) Physical Assist/Nonphysical Assist: Supine/Sit 2 person assist;verbal cues Transfer Skill: Sit To Stand, Rehab Eval [place] (Sit-Stand Transfers) unable to assess CURRENT [facility] Basic Mobility Inpatient Short Form Turning over in bed 1 - Total Assistance Sitting/standing from chair 1 - Total Assistance Moving from lying on back to sitting 1 - Total Assistance Moving to and from bed to chair 1 - Total Assistance Walk in hospital room 1 - Total Assistance Climbing 3-5 steps with a railing 1 - Total Assistance CURRENT [facility] Mobility Raw Score 6 CURRENT [facility] Mobility Functional Limitation/Modifier 100.00% Currently Impaired in Basic Mobility Currently Impaired in Basic Mobility - CN Projected [facility] Mobility Raw Score 10 Projected [facility] Mobility Functional Limitation/Modifier 76.75% Projected Functional Impairment [...] this visit. Ofelia Celaya, DPT License #: [id number] Pager #: [phone] Asya Floyd, DECKHAND - 04/05/2020 10:06 AM EDT Acute Care [...] Recommendations: Blaine Crowley would benefit from continued DECKHAND services with 24 hour supervision to address pt's severe non-fluent aphasia and moderate oropharyngeal dysphagia. SUBJECTIVE: RN communication: RN approved session: yes, RN Leigh Status statements: Pt laying in bed on DECKHAND arrival, RN present at bedside for med administration. Therapy session limited by arrival of radiology for Xray. Pain: No verbal/nonverbal indicators of pain present OBJECTIVE: (Treatment Activity Completed) O2 Sat (%): 95 % (04/05 1517) O2 Device: room air (04/05 0826) Of note, DECKHAND and RN presented x2 PO meds unable [...] cues for pt to initiate volitional swallows. DECKHAND provided cues to swallow hard, though can not verify completion of effortful swallow vs reflexive swallow atbedside, pt with x4 spontaneous swallows given extended time along with max cues. Continue to address. 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 Pt with single verbalization yeah in response to DECKHAND inquiry if pt would like to drink. [...] during this visit. Speech-Language Pathologist: Asya Guerrero CF-DECKHAND Pager: [phone] License: [id number] Email: [email or web address] Upon discontinuation of Acute Care Speech Therapy Services or patient discharge from the hospital this note represents the current Speech Therapy Discharge Summary Carly Bird MD - 04/05/2020 9:21 AM EDT Internal Medicine Daily Progress Note Patient: Blaine Crowley, 1955, [id number] Physician: Carly Morrison MD, Pager# [phone] 4 service Subjective/Interval History: Mr. Crowley spiked [...] Carly Morrison MD Internal Medicine, PGY-1 Pager: [phone] signed by Loyd Shanks MD at 04/05/2020 [...] cx data unimpressive Signed, Loyd Shanks MD Preparer Samples And Repairs of Clinical medicine Department of Internal Medicine Division of [facility] Medicine Carly Morrison MD - 04/04/2020 12:39 PM EDT Internal Medicine Daily Progress Note Patient: Blaine Crowley, 1955, [id number] Physician: Carly Morrison MD, Pager# [phone] GM 4 service Subjective/Interval History: No acute events overnight. Appears to be doing well this AM. He has been accepted by [facility]. Has been off of restraints [...] Carly Morrison MD Internal Medicine, PGY-1 Pager: [phone] signed by Goldy Gonzalez MD at 04/04/2020 [...] infection would be respiratory. Goldy Gonzalez MD Preparer Samples And Repairs of Internal Medicine Division of Hospital [facility] Barron LSW - 04/04/2020 11:01 AM EDTPlacement Plan ? This assessment was completed telephonically. ? Expected Discharge Date: 04/05/2020 ? Referred Level of Care: SNF ? Barriers: Transportation, facility acceptance over the weekend ? Current Referrals and Status 1. [facility] ? Transitional Care Unit ([phone]) SW called TCU at [facility]. Their correctional therapy director is out on vacation so they are checking records to see if they had officially accepted this patient. SW will continue to follow. ADDENDUM: 11:10am Facility returned this SW call. Admissions are being covered by Patsy ([phone]) who is available Sunday, 04/05. Based on the coversation, Patsy may not have access to Aidin, so Brooks8E TONY will need to call her and/or the building at [phone] in order to ensure she has the referral information. SW will leave handoff. ADDENDUM: 11:20am Admissions will need to have the following information when TONY calls tomorrow: He has otherwise been restraint free, without a sitter, and there have been no antipsychotics administered. A second COVID test is pending. PRIYA Martel, JANEL Float Cell Assembly Pinner [phone] Available on Secure Chat Weekend Social Work Contacts [facility]: [phone] Mariscal: [phone] Hansel: [phone] Johnny Escuderoamp; Umberto CHAHAL (PCU/MICU only): [phone] Carly Bird MD - 04/03/2020 4:09 PM EDT Internal Medicine Daily Progress Note Patient: Blaine Crowley, 1955, [id number] Physician: Carly Morrison MD, Pager# [phone] service Subjective/Interval History: No acute events overnight. Has done well without restraints for over 24 hours. Voiding spontaneouslywith condom catheter on. He has been accepted by [facility]. Awaiting time from SNF to [...] Will Ericka Flanagan MD PGY 2 Pager: [phone] Associated attestation - Goldy Gonzalez MD - [...] to augmentin on discharge. Goldy Gonzalez MD Preparer Samples And Repairs of Internal Medicine Division of Hospital Medicine [facility] Han LISW - 04/03/2020 11:41 AM EDTPlacement Plan This assessment was completed telephonically. Expected Discharge Date: 04/05/2020 Referred Level of Care: SNF Barriers: Transportation, facility acceptance over the weekend Current Referrals and Status 1. [facility] - Reserved SW was informed that patient is medically ready; SW left a voicemail for facility and messaged online, no answer regarding whether they can accept today or not. Addendum 1:57 PM SW attempted to call facility; no answer. LUDA Ascencio Cell Assembly Pinner [phone] Contact info for weekend CM and SW staff (8:00am - 4:30pm): [facility]: CCM: [phone] / Cell Assembly Pinner: [phone] Mariscal: CCM: [phone] / Cell Assembly Pinner: [phone] Hansel: CCM : [phone] / Cell Assembly Pinner: [phone] Johnny/MICU/PCU Umberto: CCM: [phone] / Cell Assembly Pinner: [phone] Ashley Sorenson LISW-S - 04/02/2020 4:04 PM EDTProgression of Care Note Expected Discharge Date: 04/05/2020 Medical Milestones Remaining: Pt with PNA on abx monitor for improvement Assessment and Discharge Plan as of 04/02/2020 4:04 PM Plan was discussed with Caregiver (HCPOA) on this date. Information from the patient, family, caregiver or other authorized retail wireless sales representative(s) was obtained telephonically. Anticipated discharge disposition: Nursing Home Facility Anticipated Services at Discharge: Occupational Therapy, Physical Therapy, Nursing Home Barriers to Discharge: None Explanation of Barriers: none facility will accept dobhoff Readmission Risk Score Risk of Readmission: 13 Category Reference: ? Low: 0% - 16% ? Medium ? Low: 17% - 32% ? Medium ? High: 33% - 48% ? High: 49% - 100% Ashley JAMISONS Clinical Strike On Machine Operator [phone] Weekend coverage info: [facility]: CCM: [phone] / Cell Assembly Pinner: [phone] Mariscal: CCM: [phone] / Cell Assembly Pinner: [phone] Hansel: CCM : [phone] / Cell Assembly Pinner: [phone] Johnny/MICU/PCU Umberto: CCM: [phone] / Cell Assembly Pinner: [phone] Supriya Wilson LSW - 04/02/2020 2:20 PM EDTPlacement Plan ? This assessment was completed?telephonically. ? Expected Discharge Date:?04/06/2020 ? Referred Level of Care:??SNF ? Barriers:?Medical Stability, Transportation ? Current Referrals and Status 1.??[facility]-Reviewing Clinical 2.??[facility]-Reserved 3.??[facility]-Reviewing Clinical 4.??[facility]-Reserved 5.??[facility]-Reviewing Clinical 6.??[facility]-Reviewing Clinical 7. Brent Scales-In Review ? [facility] updated HEDGE FUND ACCOUNTANT that patient is not medically cleared for discharge to SNF and anticipate patient will remain in the hospital through the weekend. HEDGE FUND ACCOUNTANT spoke with patient's bedside nurse and patient's TF rate is at goal. No HENs needed. HEDGE FUND ACCOUNTANT spoke with patient's Greer MESA and explained patient may discharge on Sunday to SNF. HCPOA in agreement. Social work will remain available to assist as needed. PRIYA Longoria, PATIENT RELATIONS COORDINATOR Medical Social Work [phone] Contact info for weekend CM and SW staff (8:00am - 4:30pm): [facility]: CCM: [phone] / Cell Assembly Pinner: [phone] Mariscal: CCM: [phone] / Cell Assembly Pinner: [phone] Hansel: CCM : [phone] / Cell Assembly Pinner: [phone] Johnny/MICU/PCU Umberto: CCM: [phone] / Cell Assembly Pinner: [phone] Asya Sher, DECKHAND - 04/02/2020 12:20 PM EDT Acute Care [...] Recommendations: Blaine Crowley would benefit from continued DECKHAND services with 24 hour supervision to address pt's severe non-fluent aphasia and moderate oropharyngeal dysphagia. SUBJECTIVE: RN communication: RN approved session: yes, RN Isabela Status statements: Pt alert and positioned, slouched at 15 degrees with tube feed running upon DECKHAND entry. Repositioned and requested personal care assistance as pt was incontinent. OT arrived within DECKHAND session to assistwith pt's personal care. Pain: [...] sessions. Addressed lingual strengthening via use of [place] Oral Pressure Instrument (IOPI). Completed 15 reps [...] 7 reps as OT arrived to assist. DECKHAND Outcomes Tracking Communicate basic wants and needs?: [...] this visit. Speech-Language Pathologist: Asya Mike MA, CCC-DECKHAND, CBIS Pager: [phone] Email: [email or web address] *Also available via [employer] Secure Chat Sunday-Sunday 07:30-16:00 Upon discontinuation of [...] tasks. BADL Evaluation Additional Documentation Yes Grooming [place] Level (Grooming) moderate assist (50% patient effort) [...] to wash eyes/ head.) Toileting Level of [place] dependent (less than 25% patients effort) Physical [...] patient interaction Denise Oates OTR/L License #: [id number] Pager #: [phone] Ramses Morillo MD - 04/02/2020 11:35 AM EDT Internal Medicine Daily Progress Note Patient: Blaine Crowley, 1955, [id number] Physician: Ramses Flanagan MD, Pager# [phone] GM 4 service Subjective/Interval History: ORIANA overnight, [...] Will C MD Panchito PGY 2 Pager: [phone] Associated attestation - Goldy Gonzalez MD - [...] with treatment of pneumonia. Goldy Gonzalez MD Preparer Samples And Repairs of Internal Medicine Division of Hospital Medicine [facility]linor Guardado, CLAIRE - 04/01/2020 12:32 PM EDT NUTRITION FOLLOW UP Nutrition Recommendations and Plan of Care: 1. Diet per DECKHAND recommendations. 2. Will trial thickened Ensure Enlive [...] Average TF intake over the past 5 mujz=529 ml/day; pt received 39% of goal TF [...] Pt had MBS completed on 03/29 and DECKHAND recommended soft and bite sized solids with moderately thick/honey thick liquids. Pt assessed by DECKHAND on 03/30 and 03/31 and continue to [...] amounts of foods consumed not documented) 03/31: Hopilsmnh=975 kcal, 17 g protein Harff=949 kcal, 8 g protein Nwavof=657 kcal, 26 g protein Total: 630 kcal, [...] Needs: Weight Used: 75.5 kg IBW EEN: 4671-2120 (25-30 kcal/kg IBW) EPN: 91-113 (1.2-1.5 g/kg [...] Criteria [address], LD Pager: [phone] arly Rojo MD - 04/01/2020 12:17 PM EDT Internal Medicine Daily Progress Note Patient: Blaine Crowley, 1955, [id number] Physician: Carly Morrison MD, Pager# [phone] service Subjective/Interval History: Per nursing report, [...] now continue tube feeds. Goldy Gonzalez MD Preparer Samples And Repairs of Internal Medicine Division of Hospital Medicine [facility]arly Morrison MD - 03/31/2020 1:56 PM EDT Internal Medicine Daily Progress Note Patient: Blaine Crowley, 1955, [id number] Physician: Carly Morrison MD, Pager# [phone] GM 4 service Subjective/Interval History: No acute [...] being out of restraints. Goldy Gonzalez MD Preparer Samples And Repairs of Internal Medicine Division of Hospital Medicine [facility]ya Mike, MERARI - 03/31/2020 1:48 PM EDT [...] Recommendations: Blaine Crowley would benefit from continued DECKHAND services with 24 hour supervision to address pt's severe non-fluent aphasia and pt's oropharyngeal dysphagia. SUBJECTIVE: RN communication: RN approved session: yes, RN Morris Status statements: Pt alert and RN feeding pt lunch upon DECKHAND entry. Pt approximately 60 degrees upright upon [...] sessions. Addressed lingual strengthening via use of [place] Oral Pressure Instrument (IOPI). Obtained baseline of [...] 2 by name given max assist from DECKHAND?in order to promote functional communication ability across [...] with 60% accuracy given max assist from DECKHAND in order to promote functional communication source across 3-4 sessions. ? ? Pt initiated a Y/N type response in 1/10 prompts this date. Pt nodded to indicate yes when asked, are you full? Despite max cues, repetition and po options, pt did not initiate additional responses. Goal In progress. 3. The patient will imitate vowel sounds and bilabials given max assist from DECKHAND in order to promoteincreased verbalizations across 3-4 sessions. Given max verbal cues and tactile cues, pt imitate vowels x2/5 trials, bilabial sounds x1/4 (my) this date. This was a progression from 03/30. Pt with increased ability to initiate - though he remains limited. Goal in progress. ? 4. The patient will follow 1-step commands with 80% accuracy when given max A from DECKHAND in order to promote improved ability to participate with therapy across all disciplines.? Addressed with 1=3/5 accuracy this date. This was an increase from prior session. Manipulatives were most effective (I.e. cup for take a drink). Without a manipulative, pt with 0/2 accuracy. Goal inprogress. DECKHAND Outcomes Tracking Communicate basic wants and needs?: [...] this visit. Speech-Language Pathologist: Asya Mike MA, CCC-DECKHAND, CBIS Pager: [phone] Email: [email or web address] *Also available via [employer] Chat Sunday-Sunday 07:30-16:00 Upon discontinuation of Acute [...] Mobility Skill: Scooting/Bridging, Rehab Eval Level of [place]: Scoot/Bridge maximum assist (25% patients effort) Physical Assist/Nonphysical Assist: Scoot/Bridge 2 person assist;verbal cues;supervision Bed Mobility Skill: Sit to Supine, Rehab Eval Level of [place]: Sit/Supine maximum assist (25% patients effort) Physical Assist/Nonphysical Assist: Sit/Supine set-up required;supervision;verbal cues;2 person assist Bed Mobility Skill: Supine to Sit, Rehab Eval Level of [place]: Supine/Sit maximum assist (25% patients effort) Physical Assist/Nonphysical Assist: Supine/Sit 2 person assist;verbal cues;nonverbal cues (demo/gestures) Transfer Skill: Sit To Stand, Rehab Eval [place] (Sit-Stand Transfers) unable to assess [facility] Basic Mobility Inpatient Short Form Turning over in bed 1 - Total Assistance Sitting/standing from chair 1 - Total Assistance Moving from lying on back to sitting 1 - Total Assistance Moving to and from bed to chair 1 - Total Assistance Walk in hospital room 1 - Total Assistance Climbing 3-5 steps with a railing 1 - Total Assistance [facility] Mobility Raw Score 6 [facility]RENT [facility] Mobility Functional Limitation/Modifier 100.00% Currently Impaired in Basic Mobility Currently Impaired in Basic Mobility - CN Projected AM-[facility] Mobility Raw Score 10 Projected [facility] Mobility Functional Limitation/Modifier 76.75% Projected Functional Impairment [...] this visit. Chris Mistry, DPT License # [id number] Upon discontinuation of Acute Care Physical Therapy [...] Supine to Sit, Rehab Eval Level of [place]: Supine/Sit maximum assist (25% patients effort) Physical Assist/Nonphysical Assist: Supine/Sit 2 person assist;verbal cues;supervision [facility] Daily Activity Inpatient Short Form Putting on/Taking Off Lower Body Clothing 1 - Total Assistance Bathing 1 - Total Assistance Toileting 1 - Total Assistance Putting on/Taking Off Upper Body Clothing 2 - A Lot of Assistance Grooming 2 - A Lot of Assistance Eating 3 - A Little Assistance CURRENT [facility] Activity Raw Score 10 CURRENT [facility] Activity Functional Limitation/Modifier 74.70% Currently Impaired in [...] will demonstrate safe functional toilet transfer to [facility] with max A x2 Goal 5 Pt will tolerate light grooming activity seated EOB x10 minutes with improved attention and command following with min A PROGRESSING Goal 6 Pt will tolerate RUE passive or self ROM exercises for increased functional use RUE 3x per day PROGRESSING Plan Plan Narrative Continue OT services according to OT plan of care. Therapist Information License # [id number] Pager # [phone] I used gloves, facemask and goggles in today's patient interaction. I was assisted by no one during this visit. Time in: 849 Time out: 928 Total Time: 39 Goldy Mar JUAN/L License # [id number] Pager Number: [phone] I have read and agree with the above plan of care. Upon discontinuation of Acute Care Occupational Therapy Services or patient discharge from the hospital this note represents the current Occupational Therapy Discharge Summary. EPIFANIO Dominguez/L License #: [id number] Pager #: [phone] shley Borrero LISW-S - 03/30/2020 2:13 PM EDTProgression of Care Note Expected Discharge Date: 04/02/2020 Medical Milestones Remaining: Dobhoff in place, DECKHAND for dysphagia, optimizing oral intake Assessment and Discharge Plan as of 03/30/2020 2:13 PM Plan was not discussed with significant other on this date. Information from the patient, family, caregiver or other authorized retail wireless sales representative(s) was obtained telephonically. Barriers to Discharge: Complex Disposition Explanation of Barriers: Dobhoff Readmission Risk Score Risk of Readmission: 13 Category Reference: ? Low: 0% - 16% ? Medium ? Low: 17% - 32% ? Medium ? High: 33% - 48% ? High: 49% - 100% Ashley LARES Clinical Strike On Machine Operator [phone] Weekend coverage info: [facility]: CCM: [phone] / Cell Assembly Pinner: [phone] Mariscal: CCM: [phone] / Cell Assembly Pinner: [phone] Hansel: CCM : [phone] / Cell Assembly Pinner: [phone] Johnny/MONAU/PCU Umberto: CCM: [phone] / Cell Assembly Pinner: [phone] Supryia Wilson LSW - 03/30/2020 2:08 PM EDTPlacement Plan ? This assessment was completed?telephonically. ? Expected Discharge Date:?03/31/2020 ? Referred Level of Care:??SNF ? Barriers:?Medical Stability, Transportation ? Current Referrals and Status 1.??[facility]-Reviewing Clinical 2.??[facility]-Reserved 3.??[facility]-Reviewing Clinical 4.??[facility]-Reserved 5.??[facility]-Reviewing Clinical 6.??[facility]-Reviewing Clinical 7. [facility]-In Review Patient accepted to [facility], and they can accept patient with the Dobhoff. HEDGE FUND ACCOUNTANT spoke with patients significant other (HCPOA) and she is in agreement that patient can discharge [facility] at discharge. HEDGE FUND ACCOUNTANT reserved SNF and updated CCM and Physician. Social work willremain available to assist as needed. PRIYA Longoria, PATIENT RELATIONS COORDINATOR Medical Social Work [phone] Ramses Morillo MD - 03/30/2020 11:40 AM EDT Internal Medicine Daily Progress Note Patient: Blaine Crowley, 1955, [id number] Physician: Ramses Flanagan MD, GM 4 service [...] rounds this morning. Follows commands intermittently. Passed DECKHAND eval yesterday so seeing home much PO intake he can take in with calorie counts. If eating enoughcan try removing dobhoff tube. Working on post hospitalization disposition. Goldy Gonzalez MD Preparer Samples And Repairs of Internal Medicine Division of Hospital [facility], DECKHAND - 03/30/2020 11:05 AM EDT Acute Care [...] Recommendations: Blaine Crowley would benefit from continued DECKHAND services with 24 hour supervision to address pt's severe non-fluent aphasia and pt's oropharyngeal dysphagia. SUBJECTIVE: RN communication: RN approved session: yes, RN Morris Status statements: Pt alert and RN feeding pt breakfast upon DECKHAND entry. Pt approximately 30 degrees upright upon [...] 2 by name given max assist from DECKHAND?in order to promote functional communication ability across [...] with 60% accuracy given max assist from DECKHAND in order to promote functional communication source across 3-4 sessions. ? ? Pt initiated a Y/N type response in /10 prompts this date. Pt stated, yea after a 3 second delay when prompted, Is your name Blaine? Pt maintained eye contact and nodded inconsistently during DECKHAND prompts without further appreciable attempts to respond to Y/N prompt. Goal In progress. 3. The patient will imitate vowel sounds and bilabials given max assist from DECKHAND in order to promoteincreased verbalizations across 3-4 [...] 80% accuracy when given max A from DECKHAND in order to promote improved ability to participate with therapy across all disciplines.? Addressed an pt with 1/5 accuracy this date. Suspect reflexive grasp rather than true command following. However, utilized grasp and provided positive reinforcement. Goal in progress as models and tactile cues were ineffective. DECKHAND Outcomes Tracking Communicate basic wants and needs?: [...] this visit. Speech-Language Pathologist: Asya Mike MA, [facility], CBIS Pager: [phone] Email: [email or web address] *Also available via Fitmoo Secure Chat Sunday-Sunday 07:30-16:00 Upon discontinuation of [...] the patient, family, caregiver or other authorized retail wireless sales representative(s) was obtained telephonically. Anticipated discharge disposition: Nursing Home Facility Anticipated Services at Discharge: Occupational Therapy, Nursing Home, Physical Therapy Explanation of Barriers: SW assisting [...] Stability, Transportation ? Current Referrals and Status 1.??[facility]-Reviewing Clinical 2.??[facility]-Reviewing Clinical 3.??[facility]-Reviewing Clinical 4.??[facility]-Reserved 5.??[facility]-Reviewing Clinical 6.??[facility]-Reviewing Clinical 7. [facility]-In Review 3:53 PM Addendum: LTACH referral made for possible discharge option. [facility], is able to accept patient pending removal of the Dobhoff (No NG Tube) and the TF Solution will need changed to Isosource 1.5 HEDGE FUND ACCOUNTANT spoke with Admssions from [facility] and she is having difficulty accessing the referral. HEDGE FUND ACCOUNTANT sent clinical through her email address [email or web address]. Social work will remain available to assist as needed. PRIYA Longoria, JANEL Medical Social Work [phone] Ramses Morillo MD - 03/29/2020 10:16 AM EDT Internal Medicine Daily Progress Note Patient: Blaine Crowley, 1955, [id number] Physician: Ramses Flanagan MD, GM 4 service [...] tube placed for nutrition. Appreciate input from DECKHAND team. Working on coordinating post hospitalization care. Goldy Gonzalez MD Preparer Samples And Repairs of Internal Medicine Division of Hospital Medicine [facility] MD - 03/28/2020 11:25 AM EDT Internal Medicine Daily Progress Note Patient: Blaine Crowley, 1955, [id number] Physician: Goldy Gonzalez MD, 4 service Subjective/Interval History: Overnight Blaine removed his NG tube multiple times. Awake and follows commands this morning but unable to verbalize responses. Objective: Vitals: 03/28/20 0802 BP: 134/65 Pulse: 51 Resp: 16 Temp: 98.2 ?F (36.8 ?C) O2 Device: room air (03/27/20 2229) Flow (L/min): 2 (03/25/20 4677) General: more awake, non verbal today HEENT: [...] Daily Progress Note Patient: Blaine Crowley, 1955, [id number] Physician: Ramses Flanagan MD, GM 4 service [...] optimizenutritional status. Will discuss his progress with DECKHAND but suspect he will require PEG tube if in accordance with GOC. Goldy Gonzalez MD Preparer Samples And Repairs of Internal Medicine Division of Hospital Medicine [facility] manuel MD - 03/27/2020 4:38 AM EDTNo UOP for over 12h since mcclellan removed 1500 03/26. Bladder scan with < 400ml, but will cath once just to confirm this volume Could just be that patient has not had much PO intake overnight Goldy rowell MD - 03/26/2020 2:11 PM EDT Internal Medicine Daily Progress Note Patient: Blaine Crowley, 1955, [id number] Physician: Goldy Gonzalez MD, GM 4 service [...] left lateral ventricle. Findings were discussed with nAa Burns MD at 2119 on March 21, [...] from the patient, family, caregiver orother authorized retail wireless sales representative(s) was obtained telephonically. Anticipated discharge disposition: Nursing Home Facility Anticipated Services at Discharge: Physical Therapy, Nursing Home, Occupational Therapy Explanation of Barriers: SW assisting [...] Stability, Transportation ? Current Referrals and Status 1.??[facility]-Reviewing Clinical 2.??[facility]-Reviewing Clinical 3.??[facility]-Reviewing Clinical 4.??[facility]-Reserved 5.??[facility]-Reviewing Clinical 6.??[facility]-Reviewing Clinical ? Updated clinical sent to SNF. Patient remains medically unstable for discharge at this time. NG tubeplaced last evening. SNF cannot accept with the NG tube. Patient will remain in hospital through [facility]. Social work will remain available to assist as needed. 3:17 PM HEDGE FUND ACCOUNTANT received a call from patient's HERRICK CAMPUSOA that she requested HEDGE FUND ACCOUNTANT make a referral to a new SNF, [facility]. HEDGE FUND ACCOUNTANT updated re-opened patients referral status and sent to facility. HEDGE FUND ACCOUNTANT will follow up. ? PRIYA Longoria, [facility] Medical Social Work [phone] Contact info for weekend CM and SW staff (8:00am - 4:30pm): [facility]: CCM: [phone] / Cell Assembly Pinner: [phone] Mariscal: CCM: [phone] / Cell Assembly Pinner: [phone] Hansel: CCM : [phone] / Cell Assembly Pinner: [phone] Johnny/MICU/PCU Umberto: CCM: [phone] / Cell Assembly Pinner: [phone] Ofelia Palacios, PT - 03/26/2020 10:01 AM EDT Physical Therapy Attempt Note Attempted physical therapy. Pt unable to complete PT secondary to patient currently working with speech therapy at this time. Will re-attempt when schedule permits and patient able. 03/26/20 1001 Clinical Impression PT Therapy Completed Attempted PT Therapies Still to Complete 2 Ofelia Celaya DPT License #: [id number] Pager #: [phone] Asya Bowen SLP - 03/26/2020 9:52 AM EDT Acute Care Speech Language Pathology Treatment Note Diet and Medication Administration Recommendation: Recommended Method of Nutrition: NPO, Short-term alternate nutrition Medications: non-oral Speech/Lang/Cog Therapy Frequency: 5 times a week Swallow Therapy Frequency: 5 times a week Discharge Recommendations: Blaine Crowley would benefit from continued DECKHAND services with 24 hour supervision in order [...] chips and water, after oral care, with DECKHAND only, to provide pharyngeal challenge swallows. Goal addressed, ongoing. DECKHAND addressed this goal this date in order to determine if pt is appropriate for MBS given notes from last night indicating potential change in status with concerns for potential new left facial droop. DECKHAND presented ice chips x5 with patient initially [...] addressed, ongoing. The patient was appropriate for [facility]; however, scheduling difficulties in radiology/fluoro this date as well as patient is scheduled for abdominal CT this date and pt with significant residuals this date when RN checked NG tube. Will plan to complete Sunday. DECKHAND Outcomes Tracking Communicate basic wants and needs?: no Demo insight/appreciation of deficits?: no Complete basic problem solving?: no ASSESSMENT: Diagnosis & Severity rating: Presume oropharyngeal dysphagia s/p right basal ganglia stroke Progress toward goals: Ongoing Prognosis: Good to achieve stated goals PLAN: Goal management Plan to proceed with [facility] Sunday Recommendations and referrals [facility] Sunday See top of note for further recommendations Time in: 951 Time out: 1021 I used facemask,protective eye shield, and gloves in today's patient interaction. I was assisted by Miracle Muñiz, DECKHAND student during this visit. Speech-Language Pathologist: Asya Younger MS CCC-DECKHAND #[id number], CBIS Pager# [phone] Can also be reached via GoMiles secure chat Mon-Fri between [phone] Upon discontinuation of Acute Care Speech Therapy Services or patient discharge from the hospital this note represents the current Speech Therapy Discharge Summary Asya Younger SLP - 03/26/2020 9:52 AM EDT Acute Care Speech-Language Pathology Speech/Language/Cognitive Evaluation Speech/Lang/Cog Therapy Frequency: 5 times a week DECKHAND Discharge Recommendations: Patient would benefit from DECKHAND services with 24 hour supervision in order [...] Per review of EMR and Asya Guerrero (DECKHAND)'s discussion with pt's significant other, Greer, the [...] makes no attempts to vocalize throughout evaluation DECKHAND Outcomes: DECKHAND Outcomes Tracking Communicate basic wants and needs?: [...] 2 by name given max assist from DECKHAND in order to promote functional communication ability across 3-4 sessions. 2. The patient will answer yes/no to basic questions related to self and current environment with 60% accuracy given max assist from DECKHAND in order to promote functional communication source across 3-4 sessions. 3. The patient will imitate vowel sounds and bilabials given max assist from DECKHAND in order to promoteincreased verbalizations across 3-4 sessions. 4. The patient will follow 1-step commands with 80% accuracy when given max A from DECKHAND in order to promote improved ability to participate with therapy across all disciplines. Time In: 951 Time Out: 1021 I used facemask,protective eye shield, and gloves in today's patient interaction. I was assisted by Miracle Muñiz, DECKHAND student during this visit. Speech Language Pathologist: Asya Younger MS [facility] #[id number], CBIS Pager# [phone] Can also be reached via GoMiles secure chat Mon-Fri between [phone] Upon discontinuation of Acute Care Speech Therapy [...] replacing as appropriate. 5. Diet advancement per DECKHAND recommendations. 6. Bowel regimen per primary team. [...] thus far (4 days). Pt evaluated by DECKHAND on 03/25 and recommended NPO status and [...] Needs: Weight Used: 75.5 kg IBW EEN: 8120-7389 (25-30 kcal/kg IBW) EPN: 91-113 (1.2-1.5 g/kg [...] Criteria [address], LD Pager: [phone] Casey Chavarria MD - 03/25/2020 7:36 PM [...] Casey Baca MD PGY2, Internal Medicine Pager [phone] Asya Floyd SLP - 03/25/2020 1:28 PM [...] and seizures on Keppra at home. Prior DECKHAND history: This DECKHAND unable to find history of DECKHAND tx, pt unable to provide history this date. DECKHAND contacted pt's significant other, Greer, who stated [...] Air Subjective: Pt laying in bed on DECKHAND arrival, awake/alert and agreeable to evaluation. Pt [...] thin liquids via straw. Given impulsivity demonstrated DECKHAND utilized straw pinch and provide assist limiting b ite size of puree solids on spoon. Pharyngeal Phase Function Comments Perceived Swallow present Cough Response Yes Thin liquids, puree Throat Clear Yes Puree Subjective Complaint of Residue Patient Unable to Rate Pharyngeal Phase Summary: Given limited trials, pt demonstrates overt signs/symptoms concerning for penetration/aspiration with all textures/consistencies trialed. Gary Swallow Screen: (administered by: RN prior to swallow eval) Gary Swallow Screening Screening Exclusion Criteria: (bedside swallow [...] 1 - No oral intake Speech/Cognition Outcomes: DECKHAND Outcomes Tracking Communicate basic wants and needs?: [...] swallow and further determine plan of care. DECKHAND to follow. Goals: 1- Pt will swallow therapeutic trials of ice chips and water, after oral care, with DECKHAND only, to provide pharyngeal challenge swallows. 2- Pt will swallow direct PO trials of various consistencies during instrumental swallow study to assess swallow physiology and further determine plan of care. Time In: 1328 Time Out: 1338 I used facemask,protective eye shield, and gloves in today's patient interaction. I was assisted by no one during this visit. Speech-Language Pathologist: Asya Guerrero -DECKHAND Pager: [phone] License: [id number] Email: [email or web address] Upon discontinuation of Acute Care Speech Therapy Services or patient discharge from the hospital this note represents the current Speech Therapy Discharge Summary amses Flanagan MD - 03/25/2020 12:05 PM EDT Internal Medicine Daily Progress Note Patient: Blaine Crowley, 1955, [id number] Physician: Ramses Flanagan MD, PGY2, Pager #[phone], GM 4 service Subjective/Interval History: Did well [...] Signed, Ramses Flanagan MD PGY 2 Pager: [phone] Associated attestation - Goldy Gonzalez MD - [...] lactategiven his prior history of cancer. Failed DECKHAND evaluation so will get NG tube place and plan to starttube feeds. Goldy Gonzalez MD Preparer Samples And Repairs of Internal Medicine Division of Hospital Medicine [facility] Wilson LSW - 03/25/2020 10:45 AM EDTPlacement Plan ? This assessment was completed?telephonically. ? Expected Discharge Date:?03/27/2020 ? Referred Level of Care:??SNF ? Barriers:?Medical Stability, Transportation ? Current Referrals and Status 1.??[facility]-Reviewing Clinical 2.??[facility]-Reviewing Clinical 3.??[facility]-Reviewing Clinical 4.??[facility]-Reserved 5.??[facility]-Reviewing Clinical 6.??[facility]-Reviewing Clinical ? Updated clinical sent to SNF. Patient remains medically unstable for discharge at this time. Social work will remain available to assist as needed. ? PRIYA Longoria, PATIENT RELATIONS COORDINATOR Medical Social Work [phone] signed by JANEL Longoria at 03/25/2020 10:47 [...] Supine to Sit, Rehab Eval Level of [place]: Supine/Sit maximum assist (25% patients effort) Physical Assist/Nonphysical Assist: Supine/Sit 2 person assist;verbal cues Transfer Skill: Sit To Stand, Rehab Eval [place] (Sit-Stand Transfers) maximum assist (25% patient effort) Physical Assist/Nonphysical Assist: Sit/Stand 2 person assist;verbal cues Weight-Bearing Restrictions: Sit/Stand full weight-bearing Assistive Device For Transfer: Sit/Stand (arm and arm assist) CURRENT [facility] Basic Mobility Inpatient Short Form Turning over in bed 1 - Total Assistance Sitting/standing from chair 1 - Total Assistance Moving from lying on back to sitting 1 - Total Assistance Moving to and from bed to chair 1 - Total Assistance Walk in hospital room 1 - Total Assistance Climbing 3-5 steps with a railing 1 - Total Assistance CURRENT [facility] Mobility Raw Score 6 CURRENT [facility] Mobility Functional Limitation/Modifier 100.00% Currently Impaired in Basic Mobility Currently Impaired in Basic Mobility - CN Projected [facility] Mobility Raw Score 10 Projected [facility] Mobility Functional Limitation/Modifier 76.75% Projected Functional Impairment [...] this visit. Ofelia Celaya, DPT License #: [id number] Pager #: [phone] Jane Morgan OTA - 03/25/2020 9:22 AM [...] Supine to Sit, Rehab Eval Level of [place]: Supine/Sit maximum assist (25% patients effort) Physical Assist/Nonphysical Assist: Supine/Sit 2 person assist Transfer Skill: Sit To Stand, Rehab Eval [place] (Sit-Stand Transfers) maximum assist (25% patient effort) Physical Assist/Nonphysical Assist: Sit/Stand 2 person assist Weight-Bearing Restrictions: Sit/Stand full weight-bearing Assistive Device For Transfer: Sit/Stand (arm in arm assist) Grooming [place] Level (Grooming) moderate assist (50% patient effort) [...] plan of care Therapist Information License # [id number] Pager # [phone] Time:9:22-9:46 I used gloves, facemask, and goggles in today's patient interaction. DRAKE Fontanez/Slava License # [id number] Pager# [phone] I, as the supervising practitioner have read, edited, and agreed with the documentation stated above. EPIFANIO William/L License #: [id number] Pager#: [phone] Upon discontinuation of Acute Care Occupational Therapy Services or patient discharge from the hospital this note represents the current Occupational Therapy Discharge Summary. Asya Floyd SLP - 03/25/2020 8:08 AM [facility] Speech Language Pathology Attempt Note Time In: 0808 Time Out: 819 Attempted to see pt for swallow evaluation, pt laying in bed awake, not following directions and without verbal output in response to DECKHAND questions. Pt pointing to water, then to applesauce/pudding to indicate preference for eating, however with each presentation of food/drink pt refusing to take spoon with L hand, refusing DECKHAND attempts to assist with feeding. When asked if he would like DECKHAND to return at later time, pt nodded head. Will re-attempt as able/appropriate. Given ?receptive/expressive language deficits (in setting on known prior CVA- per RN note and discussion with pt's s/o he could talk in broken sentences, and tolerated a regular diet at home. Currentpresentation questionable change in status when MRI results pending) discussed speech/lang/cog evaluation with 4 service. No charge. KIMBERLY Nascimento-DECKHAND Pager: [phone] License: [id number] Email: [email or web address] Mayela Herman DT - 03/24/2020 [...] Cultural or Yazidi Restrictions/Preferences: none 03/24/20 1357 Manufacturing Technology Professor - Nutrition Assessment Appetite good Patient c/o [...] goal of average po being 50%. 4. Manufacturing Technology Professor will continue to follow. LENARD Lane Pager:[phone] Cindy Harris RN - 03/24/2020 1:35 PM EDTProgression of Care Note Expected Discharge Date: 03/25/2020 Medical Milestones Remaining: AMS. Neuro, PT/OT following. Assessment and Discharge Plan as of 03/24/2020 1:36 PM Patient will discharge to SNF. Plan was discussed with HCPOA/Sig Other on this date. Information from the patient, family, caregiver or other authorized retail wireless sales representative(s) was obtained telephonically. Anticipated discharge disposition: Nursing Home Facility Anticipated Services at Discharge: Physical Therapy, Occupational Therapy, Nursing Home Explanation of Barriers: CCM and SW will [...] Supine to Sit, Rehab Eval Level of [place]: Supine/Sit maximum assist (25% patients effort) Physical Assist/Nonphysical Assist: Supine/Sit 2 person assist;verbal cues;set- up required Transfer Skill: Sit To Stand, Rehab Eval [place] (Sit-Stand Transfers) maximum assist (25% patient effort) Physical Assist/Nonphysical Assist: Sit/Stand 2 person assist;verbal cues;set-up required Weight-Bearing Restrictions: Sit/Stand full weight-bearing Assistive Device For Transfer: Sit/Stand (arm and arm assist) Sensory Examination Sensory Examination (pt unable to state) General Interventions Planned Therapy Interventions balance training;bed mobility training;endurance;gait training;strengthening;transfer training;neuromuscular re-education PRIOR L[facility]EL [facility] Basic Mobility Inpatient Short Form Turning over in bed (Pt with AMS and unable to provide any prior level of function) CURRENT [facility] Basic Mobility Inpatient Short Form Turning over [...] this visit. Ofelia Celaya, DPT License #: [id number] Pager #: [phone] Denise Cabello OT - [...] and Judgment impaired Short Term Memory impaired Grinding Machine Tender Memory impaired Cognitive Function Sequence impaired Memory [...] elbow flexion) Manual Muscle Testing (MMT) Hand Bridal Stylist Sales Consultant, Right absent Hand Bridal Stylist Sales Consultant, Left weak Manual Muscle Testing Results (RUE [...] Mobility Skill: Rolling/Turning, PT Eval Level of [place] - Bed Mobility Skill Rolling Turning PT Eval maximum assist (25% patients effort) Physical Assist/Nonphysical Assist set-up required;supervision;verbal cues;2 person assist Bed Mobility Skill: Scooting/Bridging, Rehab Eval Level of [place]: Scoot/Bridge maximum assist (25% patients effort) Physical Assist/Nonphysical Assist: Scoot/Bridge set-up required;supervision;verbal cues;2 person assist Bed Mobility Skill: Sit to Supine, Rehab Eval Level of [place]: Sit/Supine maximum assist (25% patients effort) Physical Assist/Nonphysical Assist: Sit/Supine set-up required;supervision;verbal cues;2 person assist Bed Mobility Skill: Supine to Sit, Rehab Eval Level of [place]: Supine/Sit maximum assist (25% patients effort) Physical Assist/Nonphysical Assist: Supine/Sit set-up required;supervision;verbal cues;2 person assist Transfer Skill: Sit to Stand, Rehab Eval Level of [place]: Sit/Stand maximum assist (25% patients effort) Physical [...] Evaluation Additional Documentation Yes Bathing Level of [place] maximum assist (25% patients effort) Physical Assist/Nonphysical Assist set-up required;supervision;verbal cues;2 person assist Assistive Devices (Bathing) shower chair Upper Body Dressing Level of [place] maximum assist (25% patients effort) Physical Assist/Nonphysical Assist set-up required;supervision;verbal cues;1 person assist Lower Body Dressing Level of [place] maximum assist (25% patients effort) Physical Assist/Nonphysical Assist set-up required;supervision;verbal cues;2 person assist Toileting Level of [place] maximum assist (25% patients effort) Physical Assist/Nonphysical Assist set-up required;supervision;verbal cues;2 person assist Grooming [place] Level (Grooming) moderate assist (50% patient effort) Physical Assist/Nonphysical Assist set-up required;supervision;verbal cues;1 person assist General Therapy Interventions Planned Therapy Interventions (OT Eval) ADL retraining;IADL retraining;balance training;transfer training;ROM (range of motion) Acute AMPA Acute [facility] Assessments Daily Activity Inpatient Short Form PRIOR LEVEL [facility] Activity Inpatient Short Form Putting on/Taking Off [...] Prior Functional Impairment in Daily Activity CURRENT [facility] Daily Activity Inpatient Short Form Putting [...] of A Clinical Decision Making: Standardized assessments: [facility], clinical judgement This co-treatment session performed between [...] will demonstrate safe functional toilet transfer to [facility] with max A x2 Goal 5 Pt [...] patient interaction. Denise Oates, OTR/L License #: [id number] Pager #: [phone] amses Flanagan MD - 03/24/2020 11:00 AM EDT Internal Medicine Daily Progress Note Patient: Blaine Crowley, 1955, [id number] Physician: Ramses Flanagan MD, PGY2, Pager #[phone], GM 4 service Subjective/Interval History: Did well [...] Signed, Ramses Flanagan MD PGY 2 Pager: [phone] Associated attestation - Goldy Gonzalez MD - [...] negative infectious work up. Goldy Gonzalez MD Preparer Samples And Repairs of Internal Medicine Division of Hospital [facility] - 03/24/2020 9:22 AM EDTPlacement Plan ? This assessment was completed telephonically. ? Expected Discharge Date: 03/25/2020 ? Referred Level of Care: SNF ? Barriers: Medical Stability, Transportation ? Current Referrals and Status 1. [facility]-Reviewing Clinical 2. [facility]-Reviewing Clinical 3. [facility]-Reviewing Clinical 4. [facility]-Reserved 5. [facility]-Reviewing Clinical 6. [facility]-Reviewing Clinical ? HEDGE FUND ACCOUNTANT contacted patient's HCPOA and updated her that team is recommending SNF (Nursing Home Facility) at discharge. HEDGE FUND ACCOUNTANT reviewed options with HCPOA and she prefers patient admit to the [facility]. HEDGE FUND ACCOUNTANT reserved SNF. Social work will remain available to assist as needed. 11:51 AM HENs completed ? PRIYA Longoria, [facility] Medical Social Work [phone] ? Rick Wilkins MD - 03/23/2020 5:57 [...] and marked suspected abnormalities and selectedsegments including retail wireless sales representative samples of states and provocative testing. The marked and selectedsegments as well as a substantial amount of sleep recording were reviewed by the EEG attending. Computerized spike and event detection was used and these detections were reviewed in detail. All event button presses were reviewed including those reported by patients, family and staff. DESCRIPTION: The patient is noted by the nuclear medicine chief technologist to follow some commands and is [...] recording to suggest a seizure disorder. Rick Hodsgon MD EEG Attending UIEClotilde hughes [facility] - 03/23/2020 1:31 PM EDT Department of Pharmacy Pharmacokinetics Progress Note Patient: Blaine Crowley Room/Bed: [facility] Assessment and Plan: Based upon drug level [...] with any further questions. Name: Clotilde Vickers [facility] Phone: [phone] Date/Time: 03/23/2020 1:31 PM Ramses Morillo MD - 03/23/2020 12:10 PM EDT Internal Medicine Daily Progress Note Patient: Blaine Crowley, 1955, [id number] Physician: Ramses Flanagan MD, PGY2, Pager #[phone], GM 4 service Subjective/Interval History: Did well [...] WITHOUT CONTRAST (Results Pending) Assessment/Plan: In summary, Blanie Crowley is a 64 y.o. male with [...] Blood cultures NGTD - de-escalate to non BUSINESS OWNER/ENGINEER dosing vanc/rocephin. Stop ampicillin and acyclovir. Plan [...] Signed, Ramses Flanagan MD PGY 2 Pager: [phone] Associated attestation - Goldy Gonzalez MD - [...] MRI to better characterize Goldy Gonzalez MD Preparer Samples And Repairs of Internal Medicine Division of Hospital Medicine [facility] LSW - 03/23/2020 9:40 AM EDTPlacement Plan This assessment was completed telephonically. Expected Discharge Date: 03/25/2020 Referred Level of Care: SNF Barriers: Medical Stability, Transportation Current Referrals and Status 1. [facility]-Reviewing Clinical 2. [facility]-Reviewing Clinical 3. [facility]-Reviewing Clinical 4. [facility]-Reviewing Clinical 5. [facility]-Reviewing Clinical 6. [facility]-Reviewing Clinical HEDGE FUND ACCOUNTANT received update from [facility] that patient will need SNF (Nursing Home Facility) at discharge. CM stated per her conversation with patients, significant other (HCPOA) that if patient needed SNF she preferred somewhere close to home. HEDGE FUND ACCOUNTANT sent SNF referrals through [facility] based on patient's zip code. Social work will remain available to assist as needed. PRIYA Longoria, JANEL Medical Social Work [phone] Clotilde Everett [facility] - 03/22/2020 4:00 PM EDT Department of Pharmacy Renal Documentation Note Patient: Blaine Crow[facility] Assessment and Plan: The patient is currently [...] any questions, Name: Clotilde Vickers RPH Phone: [phone] Date/Time: 03/22/2020 4:00 PM Cindy Harris RN - 03/22/2020 2:39 PM EDTProgression of Care Note Expected Discharge Date: 03/25/2020 Medical Milestones Remaining: AMS/Neuro workup in process. Assessment and Discharge Plan as of 03/22/2020 2:39 PM Discharge dispo TBD. Plan was discussed with Caregiver (Significant Other) Greer Lian, on this date. Information from the patient, family, caregiver or other authorized retail wireless sales representative(s) was obtained telephonically. Anticipated discharge disposition: Nursing Home Facility(TBD) Anticipated Services at Discharge: Physical Therapy, Occupational Therapy, Nursing Home Explanation of Barriers: CCM and SW will [...] or Partner Information Source Name/Contact: Greer Beal [phone] Demographics Verified and Updated: Yes Readmission Assessment [...] updated Care Team?: (n/a) Patient Care Team: [facility] as PCP - General (Unallocated) Environment/Caregivers/Services Is the patient from a facility or jail?: No Patient lives with: Significant Other Living [...] on Wheels Does the patient have a Prototype Technician or Cell Assembly Pinner?: No Does patient use DME? : walker [...] on Coumadin/Warfarin? : No [id number] [place] [address] - [phone] [facility] [id number] Assurance Officer Does the patient or retail wireless sales representative express financial concerns? : No Coping/Stress Concerns about patient?s coping and stress?: Unable to Assess Concerns about patient?s caregiver?s coping and stress?: No Values and Beliefs Cultural or restorationism practices that may impact discharge planning and/or medical care?: No Initial Discharge Planning Anticipated discharge disposition: Nursing Home Facility(TBD) Transportation Available for Discharge: Ambulance Anticipated DME: walker Anticipated Services at Discharge: Physical Therapy, Occupational Therapy, Nursing Home Patient Assessment Completed: Yes Risk of Readmission: [...] patient's progression. Case Management Plan CCM and Cell Assembly Pinner will assist with discharge needs. Information for this assessment was obtained telephonically. Ramses Morillo MD - 03/22/2020 11:01 AM EDT Internal Medicine Daily Progress Note Patient: Blaine Crowley, 1955, [id number] Physician: Ramses Flanagan MD, PGY2, Pager #[phone], GM 4 service Subjective/Interval History: Admitted overnight, [...] Signed, Ramses Flanagan MD PGY 2 Pager: [phone] Associated attestation - Goldy Gonzalez MD - [...] need for cEEG first. Discussed with EMU electrical mechanical technician and will have cEEG placed. Will [...] Documents on File Type Date Recorded Patient Training Director Explanati on HealthCare Power of Cardiology Manager 03/21/2020 12:00 AM Latest Code Status on File Code Status Date Activated Date Inactivated Comments Full Code 03/22/2020 3:10 AM Documents on File Type Date Recorded Patient Training Director Explanati on Advance Directive(s) 11/15/2016 10:16 AM [...] BE BASED ON THE PRIMARY CLINICAL RECORDS. [facility] provides no warranty or guarantee of the [...] DATE CREATED AUTHOR AUTHOR'S OPHELIAO N 04/26/2020 [facility] UNRECOGNIZED CONTENT PROVIDED BELOW FOR UNRECOGNIZED SECTION Source Comments In the event this information is protected by the Federal Confidentiality of Alcohol and Drug Abuse Patient Records regulations: The Federal rules restrict any use of the information to criminally investigate or prosecute any alcohol or drug abuse patient.[facility]
== END 2020-03-21 19:27 | disposition short-term general hospital (02) ==
PROVIDERS: Emergency Provider Emergency Medicine; PCP Internal Medicine
DX: I63.9 Cerebral infarction, unspecified (principal); G40.909 Epilepsy, unspecified, not intractable, without status epilepticus; Z87.891 Personal history of nicotine dependence
CPT/HCPCS: 70450; 70496; 70498; 71045; 80048; 81001; 84484; 85025; 85610; 85730; 93005; 96374; 96375; 99285; Q9967; A4216

== ENCOUNTER 2020-04-06 17:00 | Inpatient (IN) | payer MEDICARE, SELFPAY ==
[2020-03-21 18:54] VITALS: BMI 27.4
[2020-04-06 17:21] VITALS: BP 151/79; PULSE 75; RESP 14; TEMP 36.8; O2SAT 99
[2020-04-06 17:50] VITALS: BMI 26.5
[2020-04-06 18:15] VITALS: BMI 26.5
--- NOTE | 2020-04-06 20:48 | PCM.HP.STD ---
Problem List (1) Debility Status: Acute (2) Encephalopathy Status: Acute (3) Mixed aphasia Status: Acute (4) Dysphagia Status: Acute (5) Urinary incontinence Status: Acute (6) Hospital-acquired pneumonia Status: Acute (7) Stroke Status: Acute (8) Right hemiparesis Status: Chronic (9) Seizure disorder Status: Chronic (10) Hyperlipidemia Status: Chronic (11) BPH (benign prostatic hyperplasia) Status: Chronic (12) Fatty liver Status: Chronic History of Present Illness Date of Admission: 04/06/20 Chief Complaint: Here for rehabilitation, strengthening, prior to disposition determination. 03/21/2020 The patient is a 64 year old Male with below past medical history presented to [facility] Emergency Department with neurologic signs & symptoms of stroke. 03/21/2020 EKG normal sinus rhythm, normal EKG. 03/21/2020 CT brain showed right basal ganglia infarct, acute infarction not excluded, chronic infarcts. 03/21/2020 Chest X-ray negative. 03/21/2020 CTA head/neck, head negative. 50% stenosis proximal left common carotid artery. 50% stenosis origin left internal carotid artery in neck. 70% stenosis proximal left internal carotid artery in neck. Proximal left subclavian artery occluded. 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 Unresponsiveness in bed, Squad called. 6 weeks of confusion, facial twitching. Transfer to [facility] for acute stroke, epilepsy. 03/21/2020 Admit to [facility]. Dexamethasone 10MG Q6H x 4 days for brain swelling. Vancomycin, Ceftriaxone, Ampicillin, Acyclovir empiric treatment meningitis. 03/22/2020 Lumbar puncture performed, NEGATIVE for infection. 03/22/2020 EEG showed left hemispheric slowing, no seizures. 03/25/2020 MRI brain acute infarct right basal ganglia. Blood cultures negative to date. Keppra 1000MG twice daily for seizures. Failed Modified barium swallow, tube feeding per Dobbhoff tube. Restraints needed to protect medical equipment. Elevated WBC secondary to steroids. 03/31/2020 Dysphagia diet. 04/01/2020 Tolerating meals, supplement tube feeding. Chest X-ray concerning for pneumonia. Patient treated for pneumonia. Now NPO, nutrition by tube feeding. 04/06/2020 Admit to TCU with debility, here for rehabilitation, strengthening, prior to disposition determination, may require senior living care. Past Medical History Past Medical History (Chronic Problems): Chronic Problems Right hemiparesis (Chronic) Seizure disorder (Chronic) Hyperlipidemia (Chronic) BPH (benign prostatic hyperplasia) (Chronic) Fatty liver (Chronic) Allergies Iodinated Contrast Media [CONTRASTS] Allergy (Verified 03/19/19 14:02) Hives Home Medications: Ambulatory Orders Medication Instructions Recorded Levetiracetam 500 mg PO BID 03/21/20 Surgical History: no surgical history Psychiatric History: No pertinent psych hx Lives: Spouse/ Significant Other Smoking Status: Former smoker Tobacco Use: Non-smoker Alcohol: None Drugs: None - *Family History Maternal History Items: No pertinent history Paternal History Items: No pertinent history Review of Systems Constitutional: Denies: Chills, Fever, Weight Change HEENT: Denies: Head Aches, Sinus Congestion, Sinus Drainage Cardiovascular: Denies: Chest Pain, Palpitations Respiratory: Denies: Cough, Shortness of breath at rest, Sputum production Gastrointestinal: Denies: Abdominal Pain, Nausea, Vomiting Genitourinary: Denies: Dysuria Musculoskeletal: Denies: Joint Pain, Joint Tenderness Skin: Denies: Rash, Wounds Neurological: Denies: Numbness, Tingling, Focal weakness Psychiatric: Denies: Anxiety, Depression, Homicidal Ideations, Suicidal Ideations Hematologic/ Lymphatic: Denies: Easy Bruising, Easy Bleeding VTE Information - Inpt Only VTE Present on Admission: No VTE Mechan Device Prophylaxis: Knee High ARTEMIO Hose VTE Pharm Prophylaxis ordered?: No Reason prophylaxis not ordered:: Medical Contraindication Patient Problems: Active and Suspected Problems Debility (Acute) Encephalopathy (Acute) Mixed aphasia (Acute) Dysphagia (Acute) Urinary incontinence (Acute) Hospital-acquired pneumonia (Acute) Stroke (Acute) - Physical Exam Vitals/I&O's: Vital Signs Temp Pulse Resp BP Pulse Ox 98.2 F 75 14 151/79 H 99 04/06/20 17:21 04/06/20 17:21 04/06/20 17:21 04/06/20 17:21 04/06/20 17:21 Oxygen Delivery Method Room Air Weight: 83.915 kg Body Mass Index (BMI) 26.5 Finger Stick Blood Glucose 111 General: Alert, Oriented x3, Cooperative HEENT: Atraumatic, PERRLA, EOMI, Normocephalic, - - Dobb jeniffer tube. Neck: Supple, No JVD, Negative Carotid Bruits Lungs: Clear to auscultation, Normal air movement Cardiovascular: Regular rate, No murmurs Abdomen: Bowel Sounds Present, Soft, Non Tender, - - Condom catheter to continuous drainage. Extremities: No edema, Capillary Refill Less than 3 Seconds Skin: No rashes, No breakdown Musculoskeletal: No Tenderness to Palpation of Joints or Extremities Neurological: Cranial nerves II-XII grossly intact, Slurred Speech, - - Expressive aphasia. Psych/Mental Status: Normal Affect, Appropriate, Restless Current Medications Amoxicillin/Clavulanate Potassium (Augmentin Suspension 400mg/5ml) 800 mg NG BIDCM [facility] Stop: 04/13/20 08:01 Aspirin (Aspirin, Baby) 81 mg NG DAILY@0800 [facility] Atorvastatin Calcium (Lipitor) 80 mg NG QHS [facility] Nutritional Formula (Osmolite 1.2) 1,000 mls @ 95 mls/hr NG .[id number] [facility] Levetiracetam (Keppra Oral Solution) 1,000 mg GT BID [facility] Lorazepam (Ativan) 0.5 mg NG Q6H PRN PRN PRN Reason: Agitation/Restlessness Polyethylene Glycol (Miralax) 17 gm GT DAILY [facility] Tamsulosin HCl (Flomax) 0.4 mg PO DAILY@1730 [facility] Tuberculin PPD (Tubersol, Aplisol, Ppd) 5 tu ID X1 ONE Stop: 04/07/20 10:01 Tuberculin PPD (Tubersol, Aplisol, Ppd) 5 tu ID X1 ONE Stop: 04/14/20 10:01 Assessment/Plan All Active Problems History of hemorrhagic stroke with residual hemiparesis (Acute) Debility (Acute) Encephalopathy (Acute) Mixed aphasia (Acute) Dysphagia (Acute) Urinary incontinence (Acute) Hospital-acquired pneumonia (Acute) Stroke (Acute) 64 year old male with below past medical history hospitalized for right basal ganglia stroke, complicated by dysphagia requiring tube feeding, hospital acquired pneumonia, admitted to TCU with debility, here for rehabilitation, strengthening, prior to disposition determination, may require terminal press operator care. Debility - PT/OT. Dysphagia - ST. Pain - Tylenol 650MG Q4H pain (1-10). Bowel - Miralax 17GM daily. Adult immunization - Administer Prevnar 13, Pneumovax 23, Fluzone as appropriate. DVT prophylaxis - Hold, history of hemorrhagic stroke. Hospital acquired pneumonia - Augmentin 800MG twice daily thru 04/13/2020. Stroke - Aspirin 81MG daily. Hyperlipidemia - High intensity Atorvastatin 80MG QHS. Seizure disorder - Keppra 1000MG twice daily. Agitation - Lorazepam 0.5MG Q6H PRN. Nutrition - MVI with iron 10MG daily, Osmolite 1.2 95ML/hour. BPH - Tamsulosin 0.4MG daily.
[2020-04-06] MEDS: Atorvastatin Calcium 80 MG Tablet NG (21:17)
[2020-04-06 21:30] VITALS: RESP 16
[2020-04-07 04:00] VITALS: BP 94/60; PULSE 68; RESP 16; TEMP 36.7; O2SAT 92
[2020-04-07] MEDS: levETIRAcetam Oral Solution 500 MG/5 ML 1000 MG GT ×2 (04:58→17:20)
[2020-04-07 05:51] LABS: Absolute Lymphocyte Count 1.22 X10^3/uL (0.83-4.51); Absolute Neutrophil Count 7.7 X10^3/uL (2.0-7.7); Basophil# 0.12 X10^3/uL; Basophil% 1.1 % (0-1); Eosinophil# 0.46 X10^3/uL; Eosinophils% 4.4 % (0-5); Hematocrit 36.7 % (40-54); Hemoglobin 11.2 g/dL (13.0-16.5); Lymphocyte # 1.22 X10^3/ul (4.0); Lymphocyte % 11.6 % (19-41); Mean Corp Hgb Conc 30.5 g/dL (32-36); Mean Corpuscular Hgb 28.8 pg (27.0-32.0); Mean Corpuscular Volume 94.3 fL (80-94); Mean Platelet Vol. 10.9 fl (6.2-12.0); Monocyte# 0.93 X10^3/uL; Monocyte% 8.8 % (0-10); NRBC Flagged by Analyzer 0 % (0-5); Neutrophil # 7.69 X10^3/uL (2.7-7.7); Neutrophil % 73.1 % (47-70); Platelet Count 254 K/mm3 (150-450); RBC Distribution Width CV 12.8 % (11.6-14.6); RBC Distribution Width SD 43.7 fl (35.1-43.9); Red Blood Count 3.89 M/mm3 (4.6-6.2); White Blood Count 10.5 K/mm3 (4.4-11.0)
[2020-04-07 06:19] LABS: Anion Gap 7 (5-15); BUN 21 mg/dL (7-18); BUN/Creat Ratio 18.8 RATIO (10-20); Calcium,Total 8.4 mg/dL (8.5-10.1); Chloride 104 mmol/L (98-107); Creatinine, Serum 1.12 mg/dL (0.70-1.30); EST Glomerular Filtration Rate 70 mL/min (>60); Est Glom Filt Rate - Afr Amer 84 mL/min (>60); Estimated Creatinine Clearance 67.89 ml/min; Glucose 157 mg/dL (74-106); Sodium Level 138 mmol/L (136-145)
--- NOTE | 2020-04-07 07:15 | NURSING ---
0600 condom cath changed at this time. Amisha care done. Mcclellan with clear yellow urine.
[2020-04-07] MEDS: Aspirin 81 MG TAB.CHEW NG (07:56)
[2020-04-07] MEDS: Amox/Clav 400mg/5ml Susp 800 MG NG ×2 (07:57→17:20)
--- NOTE | 2020-04-07 08:06 | NURSING ---
Patient had two negative covid 19 tests on 03/21 and 04/04
--- NOTE | 2020-04-07 11:45 | NURSING ---
Was asked to assess buttocks. Nursing states that the Mepilex was just applied. this nurse will wait to remove since there had been some bleeding.
[2020-04-07] MEDS: Tuberculin,Purif.prot.deriv. 50 TU/ML Vial 5 ML ID (12:26)
--- NOTE | 2020-04-07 14:23 | PCM.PN.RX ---
<Sofie Hernández - Last Filed: 04/07/20 14:23> Progress Note - Pharmacy Subjective: TCU Admission Objective: Allergies Iodinated Contrast Media [CONTRASTS] Allergy (Verified 03/19/19 14:02) Hives Current Medications Generic Name Dose Route Start Last Admin Trade Name Freq PRN Reason Stop Dose Admin Acetaminophen 650 mg 04/06/20 21:12 Tylenol Liquid NG Q4H PRN PRN Pain Score 1-10/10 Amoxicillin/Clavulanate Potassium 800 mg 04/07/20 08:00 04/07/20 07:57 Augmentin Suspension 400mg/5ml NG 04/13/20 08:01 800 mg BIDCM [facility] Administration Aspirin 81 mg 04/07/20 08:00 04/07/20 07:56 Aspirin, Baby NG 81 mg DAILY@0800 [facility] Administration Atorvastatin Calcium 80 mg 04/06/20 22:00 04/06/20 21:17 Lipitor NG 80 mg QHS D[facility]TON Administration Enteral Nutritional Formula 1,000 mls @ 75 mls/hr 04/07/20 20:00 Jevity 1.5 GT .[id number] [facility] Levetiracetam 1,000 mg 04/07/20 06:00 04/07/20 04:58 Keppra Oral Solution GT 1,000 mg BID [facility] Administration Lorazepam 0.5 mg 04/06/20 19:41 Ativan NG Q6H PRN PRN Agitation/Restlessness Polyethylene Glycol 17 gm 04/07/20 06:00 04/07/20 04:56 Miralax GT Not Given DAILY [facility] Tamsulosin HCl 0.4 mg 04/07/20 17:30 Flomax PO DAILY@1730 [facility] Tuberculin PPD 5 tu 04/14/20 10:00 Tubersol, Aplisol, Ppd ID 04/14/20 10:01 X1 ONE Problem List Debility (Acute) Encephalopathy (Acute) Mixed aphasia (Acute) Dysphagia (Acute) Urinary incontinence (Acute) Hospital-acquired pneumonia (Acute) Stroke (Acute) Right hemiparesis (Chronic) Seizure disorder (Chronic) Hyperlipidemia (Chronic) BPH (benign prostatic hyperplasia) (Chronic) Fatty liver (Chronic) Vital Signs Temp Pulse Resp BP Pulse Ox 98.1 F 68 16 94/60 92 04/07/20 04:00 04/07/20 04:00 04/07/20 04:00 04/07/20 04:00 04/07/20 04:00 Oxygen Delivery Method Room Air Weight: 83.915 kg Body Mass Index (BMI) 26.5 Finger Stick Blood Glucose 111 Sodium 138 mmol/L (136-145) 04/07/20 05:15 Potassium 4.0 mmol/L (3.5-5.1) 04/07/20 05:15 Chloride 104 mmol/L (98-107) 04/07/20 05:15 Carbon Dioxide 27.0 mmol/L (21.0-32.0) 04/07/20 05:15 Anion Gap 7 (5-15) 04/07/20 05:15 BUN 21 mg/dL (7-18) H 04/07/20 05:15 Creatinine 1.12 mg/dL (0.70-1.30) 04/07/20 05:15 Est GFR (MDRD) Af Amer 84 mL/min (>60) 04/07/20 05:15 Est GFR (MDRD) Non-Af 70 mL/min (>60) 04/07/20 05:15 BUN/Creatinine Ratio 18.8 RATIO (-20) 04/07/20 05:15 Glucose 157 mg/dL (74-106) H 04/07/20 05:15 Assessment/Plan: 1. Pain: acetaminophen 650mg NG Q4H PRN pain 1-07/17. Please continue to monitor for increased pain and PRN usage. 2. Hospital acquired pneumonia: amoxicillin/clavulanate oral suspension 800mg NG BIDCM thru 04/13/20. Please continue to monitor for S/S of infection, diarrhea and renal function. 3. Stroke: aspirin 81mg NG DAILYCM. Please continue to monitor for S/S of stroke/bleeding and hemoglobin (last 11.2 g/dL). *4. Hyperlipidemia: atorvastatin 80mg NG QHS. There is no lipid panel in the patient's chart. Please consider ordering one now and then annually as clinically appropriate. Thanks. 5. Seizure disorder: levetiracetam oral solution 1000mg GT BID. Please continue to monitor for S/S of seizure and renal function. *6. BPH: tamsulosin 0.4mg PO daily@1730. Please consider holding while admitted. The contents of the capsule can clog feeding tubes. Thanks. 7. Nutrition: multivitamin with ferrous gluconate oral solution 10mg PO daily. Please continue to monitor. Psychotropic Medications: *1. Agitation: lorazepam 0.5mg NG Q6H PRN agitation/restlessness. Please consider GDR by 10/2020 if clinically appropriate. Thanks. Unnecessary Medications: None Bowel Regimen: Miralax 17gm PO daily. Please continue to monitor for constipation/diarrhea. Date of Note:: 04/07/20 - Provider Comments Provider responsibility: Provider responsible to enter orders to implement recommendations <Zaid Booker Chi - Last Filed: 04/07/20 15:51> Progress Note - Pharmacy Subjective: [] Objective: Allergies Iodinated Contrast Media [CONTRASTS] Allergy (Verified 03/19/19 14:02) Hives Current Medications Generic Name Dose Route Start Last Admin Trade Name Freq PRN Reason Stop Dose Admin Acetaminophen 650 mg 04/06/20 21:12 Tylenol Liquid NG Q4H PRN PRN Pain Score 1-10/10 Amoxicillin/Clavulanate Potassium 800 mg 04/07/20 08:00 04/07/20 07:57 Augmentin Suspension 400mg/5ml NG 04/13/20 08:01 800 mg BIDCM [facility] Administration Aspirin 81 mg 04/07/20 08:00 04/07/20 07:56 Aspirin, Baby NG 81 mg DAILY@0800 [facility] Administration Atorvastatin Calcium 80 mg 04/06/20 22:00 04/06/20 21:17 Lipitor NG 80 mg QHS [facility] Administration Enteral Nutritional Formula 1,000 mls @ 75 mls/hr 04/07/20 20:00 Jevity 1.5 GT .[id number] [facility] Levetiracetam 1,000 mg 04/07/20 06:00 04/07/20 04:58 Keppra Oral Solution GT 1,000 mg BID [facility] Administration Lorazepam 0.5 mg 04/06/20 19:41 Ativan NG Q6H PRN PRN Agitation/Restlessness Polyethylene Glycol 17 gm 04/07/20 06:00 04/07/20 04:56 Miralax GT Not Given DAILY [facility] Tamsulosin HCl 0.4 mg 04/07/20 17:30 Flomax PO DAILY@1730 [facility] Tuberculin PPD 5 tu 04/14/20 10:00 Tubersol, Aplisol, Ppd ID 04/14/20 10:01 X1 ONE Problem List Debility (Acute) Encephalopathy (Acute) Mixed aphasia (Acute) Dysphagia (Acute) Urinary incontinence (Acute) Hospital-acquired pneumonia (Acute) Stroke (Acute) Right hemiparesis (Chronic) Seizure disorder (Chronic) Hyperlipidemia (Chronic) BPH (benign prostatic hyperplasia) (Chronic) Fatty liver (Chronic) Vital Signs Temp Pulse Resp BP Pulse Ox 98.4 F 70 16 112/61 96 04/07/20 15:39 04/07/20 15:39 04/07/20 15:39 04/07/20 15:39 04/07/20 15:39 Oxygen Delivery Method Room Air Weight: 83.915 kg Body Mass Index (BMI) 26.5 Finger Stick Blood Glucose 111 Sodium 138 mmol/L (136-145) 04/07/20 05:15 Potassium 4.0 mmol/L (3.5-5.1) 04/07/20 05:15 Chloride 104 mmol/L (98-107) 04/07/20 05:15 Carbon Dioxide 27.0 mmol/L (21.0-32.0) 04/07/20 05:15 Anion Gap 7 (5-15) 04/07/20 05:15 BUN 21 mg/dL (7-18) H 04/07/20 05:15 Creatinine 1.12 mg/dL (0.70-1.30) 04/07/20 05:15 Est GFR (MDRD) Af Amer 84 mL/min (>60) 04/07/20 05:15 Est GFR (MDRD) Non-Af 70 mL/min (>60) 04/07/20 05:15 BUN/Creatinine Ratio 18.8 RATIO (10-20) 04/07/20 05:15 Glucose 157 mg/dL (74-106) H 04/07/20 05:15 Assessment/Plan: Psychotropic Medications: Unnecessary Medications: Bowel Regimen: - Provider Comments Provider responsibility: Provider responsible to enter orders to implement recommendations Provider Comments to Recommendations by Pharmacy: Agree
--- NOTE | 2020-04-07 15:33 | ST ---
Call made to pt's significant other of 22 years, Greer regarding prior level of functioning. Greer reported pt was on regular diet prior [facility] admission and that his speech has not changed since prior strok 8 years ago. Greer reports pt responds inconsistently to yes/no questions and can use 1-2 words to communicate. Greer reports pt was using a quad cane prior to [facility] admission. Greer appreciate of call and states she is happy to speak with other TCU staff members regarding patients progress and goals.
[2020-04-07 15:39] VITALS: BP 112/61; PULSE 70; RESP 16; TEMP 36.9; O2SAT 96
--- NOTE | 2020-04-07 16:07 | NURSING ---
Spoke with pt and his POA, pt chose to be a DNRCC-A
[2020-04-07] MEDS: Tamsulosin HCl 0.4 MG Capsule PO (17:20)
[2020-04-07] MEDS: Atorvastatin Calcium 80 MG Tablet NG (20:53)
[2020-04-07] MEDS: Jevity 1.5 1,000 ML 75 ML GT (20:54)
[2020-04-08 04:43] VITALS: BP 102/60; PULSE 64; RESP 15; TEMP 37; O2SAT 93
[2020-04-08] MEDS: Menthol/Lanolin/Calamine/Znox 113 GM Tube 1 APPLIC TOPICAL ×2 (04:46→20:33)
[2020-04-08] MEDS: Nystatin Powder 15gm Bottle 1 APPLIC TOPICAL ×2 (04:47→20:33)
[2020-04-08] MEDS: Polyethylene Glycol 3350 17 GM PACKET GT (04:48)
[2020-04-08] MEDS: levETIRAcetam Oral Solution 500 MG/5 ML 1000 MG GT ×2 (04:49→16:40)
[2020-04-08 06:02] LABS: Absolute Neutrophil Count 7.5 X10^3/uL (2.0-7.7); Basophil# 0.13 X10^3/uL; Basophil% 1.3 % (0-1); Eosinophil# 0.57 X10^3/uL; Eosinophils% 5.5 % (0-5); Hematocrit 36.4 % (40-54); Hemoglobin 11.2 g/dL (13.0-16.5); Lymphocyte % 11.6 % (19-41); Mean Corp Hgb Conc 30.8 g/dL (32-36); Mean Corpuscular Hgb 29.3 pg (27.0-32.0); Mean Corpuscular Volume 95.3 fL (80-94); Mean Platelet Vol. 10.9 fl (6.2-12.0); Monocyte# 0.85 X10^3/uL; Monocyte% 8.2 % (0-10); NRBC Flagged by Analyzer 0 % (0-5); Neutrophil % 72.4 % (47-70); Platelet Count 307 K/mm3 (150-450); RBC Distribution Width SD 44.2 fl (35.1-43.9); Red Blood Count 3.82 M/mm3 (4.6-6.2); White Blood Count 10.4 K/mm3 (4.4-11.0)
[2020-04-08 06:17] LABS: Anion Gap 6 (5-15); BUN 21 mg/dL (7-18); BUN/Creat Ratio 21.2 RATIO (10-20); Calcium,Total 8.1 mg/dL (8.5-10.1); Chloride 102 mmol/L (98-107); Creatinine, Serum 0.99 mg/dL (0.70-1.30); EST Glomerular Filtration Rate 81 mL/min (>60); Est Glom Filt Rate - Afr Amer 97 mL/min (>60); Estimated Creatinine Clearance 76.81 ml/min; Glucose 131 mg/dL (74-106); Potassium 3.8 mmol/L (3.5-5.1); Sodium Level 136 mmol/L (136-145)
[2020-04-08] MEDS: Aspirin 81 MG TAB.CHEW NG (07:35)
[2020-04-08] MEDS: Amox/Clav 400mg/5ml Susp 800 MG NG ×2 (07:36→16:40)
--- NOTE | 2020-04-08 12:34 | NURSING ---
st cath done for PVR 450cc, pt incont of urine before scan also. This nurse st cathed pt and before inserting catheter pt voided, ST cathed for 400cc. Will continue to monitor. incont care provided. pt turned on back, heels floated in bed. call light in reach.
[2020-04-08 14:21] VITALS: BP 147/76; PULSE 63; RESP 17; TEMP 36.7; O2SAT 95
--- NOTE | 2020-04-08 14:39 | NURSING ---
sports marketing coordinator Note: Facetime call with resident to Sign Other, Greer. HIPOLITO also present for call. Res up in chair. Smiling at Greer, tracking w/ good eye contact. Able to shake head yes/no. Greer states that resident was independent for adls prior to CVA. HIPOLITO updated her to current functioning level. Both appreciative of call.
--- NOTE | 2020-04-08 14:41 | NURSING ---
Flushed PEG tube 110cc sterile water, tube remains @ approx 59cm. pt nonverbal. soft touch call light given, pt having difficulty touching small button on previous call light. Pt sitting in recliner chair, legs elevated. Will bandar pt back to bed at 4p if pt can tolerate sitting up that long. will monitor.
--- NOTE | 2020-04-08 15:55 | NURSING ---
brought in pts laptop, he is able to communicate with that per . has been nonverbal for 8 yrs. pt hoyered back to bed per his request.
[2020-04-08] MEDS: Tamsulosin HCl 0.4 MG Capsule PO (16:40)
--- NOTE | 2020-04-08 17:37 | CASEMGMT ---
Addendum entered by Yanna Hill 04/08/20 17:41: Greer states to have a tripped planned to go to [place] from April 15-. Greer states that is patient would be discharged to community prior to Greer's return Greer's son is local and would be able to assist with care fo patient. Gerer states to be able to be reached by phone. Original Note: Social Work See attached assessment for complete details. Assessment completed with patient significant other, Greer. Greer reports to have been in relationship with patient for 22 years and currently lives with and care for resident. Resident prior level of functioning was able to do all ADL's and walked with a Flo-walker. Greer states to be HCPOA and plans to bring in documents for chart. Vanessa POWERS, ANDRE
[2020-04-08] MEDS: Atorvastatin Calcium 80 MG Tablet NG (20:34)
[2020-04-08] MEDS: Jevity 1.5 1,000 ML 75 ML GT (20:42)
[2020-04-09] MEDS: Nystatin Powder 15gm Bottle 1 APPLIC TOPICAL ×2 (04:50→20:54)
[2020-04-09] MEDS: Menthol/Lanolin/Calamine/Znox 113 GM Tube 1 APPLIC TOPICAL ×2 (04:50→20:45)
[2020-04-09] MEDS: Polyethylene Glycol 3350 17 GM PACKET GT (04:51)
[2020-04-09] MEDS: levETIRAcetam Oral Solution 500 MG/5 ML 1000 MG GT ×2 (04:52→17:31)
[2020-04-09 04:55] VITALS: BP 98/60; PULSE 69; RESP 16; TEMP 36.7; O2SAT 94
--- NOTE | 2020-04-09 06:47 | NURSING ---
0640- bladder scan showing 594mL. pt straight cathed with sterile technique and drained of 500mL clear, yellow urine. Pt tolerated well.
[2020-04-09 06:59] LABS: Absolute Lymphocyte Count 1.07 X10^3/uL (0.83-4.51); Absolute Neutrophil Count 6.8 X10^3/uL (2.0-7.7); Basophil% 1.1 % (0-1); Eosinophil# 0.51 X10^3/uL; Eosinophils% 5.4 % (0-5); Hematocrit 38.6 % (40-54); Hemoglobin 12.2 g/dL (13.0-16.5); Lymphocyte # 1.07 X10^3/ul (4.0); Lymphocyte % 11.4 % (19-41); Mean Corp Hgb Conc 31.6 g/dL (32-36); Mean Corpuscular Hgb 29.8 pg (27.0-32.0); Mean Corpuscular Volume 94.4 fL (80-94); Mean Platelet Vol. 10.6 fl (6.2-12.0); Monocyte# 0.79 X10^3/uL; Monocyte% 8.4 % (0-10); NRBC Flagged by Analyzer 0 % (0-5); Neutrophil # 6.77 X10^3/uL (2.7-7.7); Neutrophil % 72.3 % (47-70); Platelet Count 308 K/mm3 (150-450); RBC Distribution Width CV 12.6 % (11.6-14.6); RBC Distribution Width SD 43.2 fl (35.1-43.9); Red Blood Count 4.09 M/mm3 (4.6-6.2); White Blood Count 9.4 K/mm3 (4.4-11.0)
[2020-04-09 07:21] LABS: Anion Gap 5 (5-15); BUN 20 mg/dL (7-18); BUN/Creat Ratio 21.2 RATIO (10-20); Calcium,Total 8.3 mg/dL (8.5-10.1); Chloride 106 mmol/L (98-107); Creatinine, Serum 0.94 mg/dL (0.70-1.30); EST Glomerular Filtration Rate 85 mL/min (>60); Est Glom Filt Rate - Afr Amer 103 mL/min (>60); Glucose 124 mg/dL (74-106); Potassium 4.2 mmol/L (3.5-5.1); Sodium Level 136 mmol/L (136-145)
[2020-04-09] MEDS: Multivitamin/Minerals/Iron (9 mg/15 ml) Liquid NG (08:34)
[2020-04-09] MEDS: Aspirin 81 MG TAB.CHEW NG (08:34)
[2020-04-09] MEDS: Amox/Clav 400mg/5ml Susp 800 MG NG ×2 (08:35→17:30)
[2020-04-09 15:13] VITALS: BP 105/64; PULSE 65; RESP 16; TEMP 36.4; O2SAT 94
[2020-04-09] MEDS: Tamsulosin HCl 0.4 MG Capsule PO (17:30)
[2020-04-09] MEDS: Atorvastatin Calcium 80 MG Tablet NG (20:40)
[2020-04-09] MEDS: Jevity 1.5 1,000 ML 75 ML GT (20:40)
[2020-04-10] MEDS: Polyethylene Glycol 3350 17 GM PACKET GT (04:44)
[2020-04-10] MEDS: levETIRAcetam Oral Solution 500 MG/5 ML 1000 MG GT ×2 (04:45→18:11)
[2020-04-10] MEDS: Menthol/Lanolin/Calamine/Znox 113 GM Tube 1 APPLIC TOPICAL ×2 (04:46→22:14)
[2020-04-10] MEDS: Nystatin Powder 15gm Bottle 1 APPLIC TOPICAL ×2 (04:46→22:15)
--- NOTE | 2020-04-10 04:53 | NURSING ---
Jevity stopped at this time per order.
[2020-04-10 04:54] VITALS: BP 107/60; PULSE 68; RESP 16; TEMP 36.9
[2020-04-10] MEDS: Multivitamin/Minerals/Iron (9 mg/15 ml) Liquid NG (09:23)
[2020-04-10] MEDS: Aspirin 81 MG TAB.CHEW NG (09:23)
[2020-04-10] MEDS: Amox/Clav 400mg/5ml Susp 800 MG NG ×2 (09:23→18:12)
[2020-04-10 10:00] VITALS: PULSE 67; RESP 16; O2SAT 98
[2020-04-10] MEDS: NYSTATIN 500,000 UNIT/5 ML UDC 500000 UNIT PO ×2 (13:25→18:13)
[2020-04-10] MEDS: Tamsulosin HCl 0.4 MG Capsule PO (18:11)
[2020-04-10] MEDS: Atorvastatin Calcium 80 MG Tablet NG (22:15)
[2020-04-11] MEDS: Jevity 1.5 1,000 ML 75 ML GT ×2 (00:38→20:37)
[2020-04-11 05:25] VITALS: BP 92/57; PULSE 66; RESP 20; TEMP 36.6; O2SAT 96
[2020-04-11] MEDS: Polyethylene Glycol 3350 17 GM PACKET GT (05:31)
[2020-04-11] MEDS: levETIRAcetam Oral Solution 500 MG/5 ML 1000 MG GT ×2 (05:31→17:08)
[2020-04-11] MEDS: Nystatin Powder 15gm Bottle 1 APPLIC TOPICAL ×2 (05:32→20:28)
[2020-04-11] MEDS: Menthol/Lanolin/Calamine/Znox 113 GM Tube 1 APPLIC TOPICAL ×2 (05:32→20:27)
[2020-04-11] MEDS: NYSTATIN 500,000 UNIT/5 ML UDC 500000 UNIT PO ×4 (05:33→20:29)
[2020-04-11] MEDS: Aspirin 81 MG TAB.CHEW NG (07:56)
[2020-04-11] MEDS: Multivitamin/Minerals/Iron (9 mg/15 ml) Liquid NG (07:56)
[2020-04-11] MEDS: Amox/Clav 400mg/5ml Susp 800 MG NG ×2 (07:57→17:10)
[2020-04-11 14:38] VITALS: BP 93/63; PULSE 76; RESP 14; TEMP 37; O2SAT 94
[2020-04-11] MEDS: Tamsulosin HCl 0.4 MG Capsule PO (17:09)
[2020-04-11] MEDS: Atorvastatin Calcium 80 MG Tablet NG (20:31)
[2020-04-11] MEDS: Acetaminophen 650 MG/20 ML UDC NG (20:31)
[2020-04-11 23:13] VITALS: PULSE 93; RESP 16; O2SAT 96
--- NOTE | 2020-04-11 23:46 | NURSING ---
Left message for Thalia wound nurse to assess patients right buttock.
[2020-04-12] MEDS: Menthol/Lanolin/Calamine/Znox 113 GM Tube 1 APPLIC TOPICAL ×2 (05:28→20:05)
[2020-04-12] MEDS: Polyethylene Glycol 3350 17 GM PACKET GT (05:30)
[2020-04-12] MEDS: levETIRAcetam Oral Solution 500 MG/5 ML 1000 MG GT ×2 (05:31→17:00)
[2020-04-12 05:37] VITALS: BP 91/63; PULSE 75; RESP 16; TEMP 36.1; O2SAT 95
[2020-04-12] MEDS: NYSTATIN 500,000 UNIT/5 ML UDC 500000 UNIT PO ×4 (05:37→20:19)
[2020-04-12] MEDS: Nystatin Powder 15gm Bottle 1 APPLIC TOPICAL ×2 (05:37→20:05)
[2020-04-12] MEDS: Multivitamin/Minerals/Iron (9 mg/15 ml) Liquid NG (08:47)
[2020-04-12] MEDS: Aspirin 81 MG TAB.CHEW NG (08:47)
[2020-04-12] MEDS: Amox/Clav 400mg/5ml Susp 800 MG NG ×2 (08:49→17:00)
--- NOTE | 2020-04-12 11:09 | NURSING ---
Pt significant other Greer called and given update.
[2020-04-12 13:55] VITALS: BP 101/66; PULSE 76; RESP 17; TEMP 36.4; O2SAT 97
[2020-04-12] MEDS: Tamsulosin HCl 0.4 MG Capsule PO (17:00)
[2020-04-12] MEDS: Atorvastatin Calcium 80 MG Tablet NG (20:06)
--- NOTE | 2020-04-12 20:29 | NURSING ---
POWER LINE INSTALLER to this nurse stating pt had pulled out his NG tube. This nurse promptly to room. NG tube laying on pt stomach still bridled around nose. Pt denied discomfort. Tip intact. Dr. Booker updated. New order to D/C NG tube. Encourage fluids and foods. New order to notify sas bi developer to monitor intake/output. Crush meds in applesauce. String that was bridled around septum and removed. Pt tolerated well. Pt stating I am ok with a smile on his face. Educated pt on the importance of drinking fluids. Pt shook his head in agreement. POWER LINE INSTALLER in room.
[2020-04-13] MEDS: Menthol/Lanolin/Calamine/Znox 113 GM Tube 1 APPLIC TOPICAL ×2 (06:41→20:17)
[2020-04-13] MEDS: Nystatin Powder 15gm Bottle 1 APPLIC TOPICAL ×2 (06:41→20:17)
[2020-04-13] MEDS: Polyethylene Glycol 3350 17 GM PACKET PO (06:41)
[2020-04-13] MEDS: NYSTATIN 500,000 UNIT/5 ML UDC 500000 UNIT PO ×4 (06:41→20:16)
[2020-04-13] MEDS: levETIRAcetam 1,000 MG Tablet 1000 MG PO ×2 (06:41→17:41)
[2020-04-13 06:49] VITALS: BP 102/60; PULSE 66; RESP 17; TEMP 36.6; O2SAT 96
[2020-04-13 08:12] LABS: Absolute Lymphocyte Count 1.78 X10^3/uL (0.83-4.51); Absolute Neutrophil Count 6.7 X10^3/uL (2.0-7.7); Basophil# 0.12 X10^3/uL; Basophil% 1.2 % (0-1); Eosinophil# 0.79 X10^3/uL; Eosinophils% 7.7 % (0-5); Hematocrit 38.8 % (40-54); Hemoglobin 12.3 g/dL (13.0-16.5); Lymphocyte # 1.78 X10^3/ul (4.0); Lymphocyte % 17.3 % (19-41); Mean Corp Hgb Conc 31.7 g/dL (32-36); Mean Corpuscular Hgb 29.8 pg (27.0-32.0); Mean Corpuscular Volume 93.9 fL (80-94); Mean Platelet Vol. 9.5 fl (6.2-12.0); Monocyte# 0.76 X10^3/uL; Monocyte% 7.4 % (0-10); NRBC Flagged by Analyzer 0 % (0-5); Neutrophil # 6.68 X10^3/uL (2.7-7.7); Platelet Count 463 K/mm3 (150-450); RBC Distribution Width CV 13.2 % (11.6-14.6); RBC Distribution Width SD 44.4 fl (35.1-43.9); Red Blood Count 4.13 M/mm3 (4.6-6.2); White Blood Count 10.3 K/mm3 (4.4-11.0)
[2020-04-13 08:27] LABS: Anion Gap 6 (5-15); BUN 19 mg/dL (7-18); BUN/Creat Ratio 19.8 RATIO (10-20); Calcium,Total 8.8 mg/dL (8.5-10.1); Chloride 107 mmol/L (98-107); Creatinine, Serum 0.96 mg/dL (0.70-1.30); EST Glomerular Filtration Rate 83 mL/min (>60); Est Glom Filt Rate - Afr Amer 101 mL/min (>60); Estimated Creatinine Clearance 79.21 ml/min; Glucose 103 mg/dL (74-106); Potassium 4.2 mmol/L (3.5-5.1); Sodium Level 139 mmol/L (136-145)
--- NOTE | 2020-04-13 08:55 | NURSING ---
wound photo: buttocks
[2020-04-13] MEDS: Multivitamins,Ther W-Minerals Tablet 1 TABLET PO (09:04)
[2020-04-13] MEDS: Aspirin 81 MG TAB.CHEW PO (09:04)
[2020-04-13] MEDS: Amox/Clav 400mg/5ml Susp 800 MG PO (10:33)
[2020-04-13 11:27] VITALS: PULSE 81; RESP 16
[2020-04-13 14:12] VITALS: BP 116/88; PULSE 78; RESP 17; TEMP 36.7; O2SAT 94
--- NOTE | 2020-04-13 16:14 | NURSING ---
Significant other Greer was called and given update, NG removed and pt now SPX2, happy to hear pt is improving
[2020-04-13] MEDS: Tamsulosin HCl 0.4 MG Capsule PO (17:41)
[2020-04-13] MEDS: Atorvastatin Calcium 80 MG Tablet PO (20:16)
[2020-04-14 04:00] VITALS: BP 105/67; PULSE 67; RESP 16; TEMP 36.6; O2SAT 93
[2020-04-14] MEDS: levETIRAcetam 1,000 MG Tablet 1000 MG PO ×2 (06:47→18:06)
[2020-04-14] MEDS: Nystatin Powder 15gm Bottle 1 APPLIC TOPICAL ×2 (06:47→20:27)
[2020-04-14] MEDS: NYSTATIN 500,000 UNIT/5 ML UDC 500000 UNIT PO ×4 (06:47→20:28)
[2020-04-14] MEDS: Menthol/Lanolin/Calamine/Znox 113 GM Tube 1 APPLIC TOPICAL ×2 (06:48→20:27)
[2020-04-14] MEDS: Polyethylene Glycol 3350 17 GM PACKET PO (06:48)
[2020-04-14] MEDS: Multivitamins,Ther W-Minerals Tablet 1 TABLET PO (09:02)
[2020-04-14] MEDS: Aspirin 81 MG TAB.CHEW PO (09:02)
--- NOTE | 2020-04-14 10:27 | CASEMGMT ---
Social Work IDT met with patient and S.O. via conference call for care plan meeting. Discussed patient's progress in therapy. Pt is max assist for bed mobility, max x1 to min/mod x2 for sit to stands with hemiwalker, mod x2 for SPT using HW, all transfers to left side, using 3# wts on LLE for exercises. Pt is max to dependent for ADLS, dependent for toileting at bed level, min assist for self feeding, and will work toward toileting - just discontinued bandar the previous day. Pt is on a [facility] soft/honey thick diet, and will receive MBS on this date and potentially upgrade diet. Working on communication board for wants and needs, as pt is 50% accuracy with basic needs with cues. Pt enjoys watching tv, sports, using his computer and activities will continue with 1:1 visits. Pt is on a cardiac diet, receiving ensure pudding, magic cup, and encouraging fluid intake, intake is variable. Pt has NG tube removed, has clemens cath, and wound on buttocks. Explained Medicare benefit with no secondary. S.O. stated there is no problem pay privately for copays. Explained for S.O. to notify SW if that changes. S.O. stated she can assist pt with any needs at home. Will continue to work on returning to [facility]. Will continue to follow. PRIYA Naidu
[2020-04-14] MEDS: Tuberculin,Purif.prot.deriv. 50 TU/ML Vial 5 ML ID (10:35)
--- NOTE | 2020-04-14 13:16 | NURSING ---
pt off floor for swallow eval
--- NOTE | 2020-04-14 13:30 | SP.MBSS_ITS ---
PRIMARY / SECONDARY DIAGNOSIS: dysphagia (R13.10) CURRENT DIET (SOLIDS): mechanical soft textures (IDDSI: 5) CURRENT DIET (LIQUIDS): honey thickened liquids (IDDSI: 3) MENTAL STATUS: suboptimal; aphasic RESPIRATORY STATUS: O2 via room air REASON FOR REFERRAL: The Patient is a 64 year old male referred for a modified barium swallow (MBS) study to objectively assess the Patients oropharyngeal swallow function under fluoroscopy secondary to concerns for PO intake tolerance following a right basal ganglia infarct. MEDICAL HISTORY: Cerebrovascular accident involving the right basal ganglia, left frontal lobe, and bilateral parietal lobes with resulting hemiparesis, dysphagia, and aphasia; seizure disorder, hyperlipidemia, benign prostatic hyperplasia, fatty liver. PREVIOUS MODIFIED BARIUM SWALLOW STUDY RESULTS: 03/25/2020 MBS results unavailable at time of study. ADDITIONAL OBJECTIVE ASSESSMENT RESULTS: 03/21/2020 CT of the brain revealed a right basal ganglia infarct; chronic infarcts in the left frontal, parietal, and right parietal lobes. ASSESSMENT PARAMETERS: The Patient participated in a Modified Barium Swallow (MBS) study on 04/14/2020. This study was recorded in the lateral view and images were sent to PACs for storage. Scoring was completed through each trial using the 8- point Penetration-Aspiration Scale (PAS) and the Videofluoroscopic Scale Score (VSS), and summarized via the Modified Barium Swallow Impairment Profile (MBSImP) and the Bolus Residue Scale (BRS), with severity scoring through the Dysphagia Severity Rating Scale (DSRS) and the Dysphagia Classification Scale (DCS), and recommended diet textures through the International Dysphagia Diet Standardisation Initiative (IDDSI) RESULTS OF THE EVALUATION: The Patient presents with moderate oropharyngeal dysphagia (DSRS: 4) with grade II overt aspiration of thin liquids OBJECTIVE ASSESSMENT OF SWALLOW FUNCTION (QUANTITATIVE ? PER TRIAL): PENETRATION / ASPIRATION SCALE (MCFARLANE): 1 = does not enter airway 2 = enters airway/above vocal folds/ejected 3 = enters airway/above vocal folds/not ejected 4 = enters airway/contacts vocal folds/ejected 5 = enters airway/contacts vocal folds/not ejected 6 = enters airway/below vocal folds/ejected 7 = enters airway/below vocal folds/not ejected despite effort 8 = enters airway/below vocal folds/no effort VIDEOFLOROSCOPIC SCALE SCORE (MCFARLANE): Grade I = aspiration of material that has penetrated into the laryngeal vestibule, intact cough reflex Grade II = aspiration < 10 % of the bolus, intact cough reflex Grade III = aspiration of < 10 % of the bolus, reduced cough reflex or aspiration of > 10 % of the bolus, intact cough reflex Grade IV = aspiration of > 10 % of the bolus, reduced cough reflex PENETRATION / ASPIRATION SCALE (SCORE) WITH VIDEOFLOROSCOPIC SCALE SCORE: Thin liquid - 5 mL tsp.: 2 Thin liquids via straw (single sip): 7 ? Grade II Thin liquids via straw (single sip): 1 Thin liquids via straw (single sip): 1 Thin liquids via straw (single sip): 1, 5* Pudding via spoon: 1 Regular textured cookie: 1 Thin liquids via straw (single sip): 2 Thin liquids via straw (single sip): 3 [place] thickened liquids via straw (single sip): 1 [place] thickened liquids via straw (single sip): 2 [place] thickened liquids via straw (sequential): 1 * denotes post prandial occurrence OBJECTIVE ASSESSMENT OF SWALLOW FUNCTION (QUANTITATIVE ? AGGREGATE): MODIFIED BARIUM SWALLOW IMPAIRMENT PROFILE (MBSImP) LABIAL SEAL: 0 (of 4) no labial escape TONGUE CONTROL: 3 (of 3) posterior escape > 50% BOLUS PREPARATION / MASTICATION: 1 (of 3) slow prolonged; complete recollection BOLUS TRANSPORT / LINGUAL MOTION: 3 (of 4) repetitive / disorganized motion ORAL RESIDUE: 2 (of 4) residue collection on oral structures INITIATION OF PHARYNGEAL SWALLOW: 3 (of 4) pyriforms SOFT PALATE ELEVATION: 1 (of 4) trace column between soft palate & pharyngeal wall LARYNGEAL ELEVATION: 0 (of 3) complete superior movement / approximation ANTERIOR HYOID EXCURSION: 0 (of 2) complete movement EPIGLOTTIC MOVEMENT: 0 (of 2) complete inversion LARYNGEAL VESTIBULE CLOSURE: 0 (of 2) complete closure PHARYNGEAL STRIPPING WAVE: 1 (of 2) present / diminished PE SEGMENT OPENIN (of 3) partial distension / duration / obstruction TONGUE BASE RETRACTION: 2 (of 4) narrow column of contrast PHARYNGEAL RESIDUE: 2 (of 4) collection of residue ESOPHAGEAL BOLUS CLEARANCE: could not view BOLUS RESIDUE SCALE (BRS): BRS SCORE: 4 (of 6) BRS SCORE DESCRIPTION: residue in valleculae and piriform sinus OBJECTIVE ASSESSMENT OF SWALLOW FUNCTION (SEVERITY GRADING): DYSPHAGIA SEVERITY RATING SCALE (DSRS): DSRS CLASSIFICATION: 4 (moderate) DSRS CLASSIFICATION CHARACTERISTICS: moderate dysphagia?significant potential for aspiration exists; trace aspiration of one or more consistencies may be seen in instrumental exam DYSPHAGIA CLASSIFICATION SCALE (DCS): DCS CLASSIFICATION: D1 (mild) DCS CLASSIFICATION CHARACTERISTICS: mild stasis, without food consistency restriction OBJECTIVE ASSESSMENT OF SWALLOW FUNCTION (QUALITATIVE): ORAL PREPARATORY PHASE: prolonged albeit effective mastication; sufficient anterior oral containment during oral manipulation; preserved management of breathing / bolus formation ORAL TRANSITIONAL PHASE: clearly discoordinated lingual movements (undulations) and varied oral phase swallow onset delay (2-3 seconds in length) with intermittent fragmented swallowing (piecemeal deglutition); suboptimal oral clearance without side specific consolidation; intermittent premature posterior bolus loss with less viscous liquids PHARYNGEAL PHASE: inconsistent pharyngeal swallow dyssynchrony resulting in prandial penetration and subsequent aspiration of thin liquids; appropriate hyolaryngeal excursion and laryngeal vestibule closure / pressure, with sufficient laryngeal vestibule pressure generated to expel penetrated material; mild pharyngeal dysmotility most prominently with thin liquids (likely impacted by dyssynchrony), higher likelihood for post prandial penetration and subsequent aspiration events; appropriate velopharyngeal functioning; ESOPHAGEAL PHASE: no obvious esophageal phase abnormalities observed. CONTRIBUTING / COMPLICATING FACTORS AND NOTABLE FINDINGS: unable to follow commands to execute compensatory based measures; well preserved, strong cough in response to tracheobronchial aspiration; very deep pyriform channels at times complicating view; difficulty maintaining upright seated position DYSPHAGIA ASSOCIATED MEDICAL CONSIDERATIONS / INTERVENTION CONSIDERATIONS: The Patient was noted to overtly aspirate during trials of thin liquids, suggesting clinical assessment at bedside relying on identification of classic overt signs and symptoms of aspiration may be sufficient to determine appropriateness for PO texture upgrade to thin liquids. Aspiration identified was very scant in nature, with very minimal amounts of contrast identified (< 5% of bolus). INTERVENTION RECOMMENDATIONS AND CONSIDERATIONS: The Patient requires continued skilled speech-language intervention targeting diet texture management and training / implementation of recommended compensatory strategies; training and implementation of recommended oropharyngeal strengthening exercises to facilitate improved pharyngeal motility; training, implementation, and Patient / caregiver education regarding implementation of the [place] Free Water Protocol (FFWP); Patient and caregiver education regarding stroke associated dysphagia; Patient and caregiver training targeting meal preparation / thickened liquid preparation if unable to advance to baseline diet textures prior to discharge. DIET TEXTURE RECOMMENDATIONS: Will recommend a mechanical soft textured (IDDSI: 5), nectar thickened liquid (IDDSI: 2) diet RECOMMENDED COMPENSATORY STRATEGIES: Direct supervision with TOTAL FEED, reduced bolus volume / rate of ingestion, liquid chaser at reasonable intervals, straws with all liquids, seated upright at 90 degrees during PO intake, remain upright for 30-60 minutes post meal (GERD precaution), medications crushed in purees. IMAGE COUNT: [id number] Olivier Estes M.A., RAY-CARPET FLOOR LAYER APPRENTICE, CBIS MBSImP Certified, LSVT Certified [facility] Speech-Language Pathology Department Email: [email or web address]
[2020-04-14 16:00] VITALS: BP 97/65; PULSE 78; RESP 14; TEMP 36.3; O2SAT 97
[2020-04-14] MEDS: Tamsulosin HCl 0.4 MG Capsule PO (18:07)
[2020-04-14] MEDS: Atorvastatin Calcium 80 MG Tablet PO (20:28)
[2020-04-14 23:08] VITALS: PULSE 77; RESP 16; O2SAT 97
[2020-04-15 05:05] VITALS: BP 98/64; PULSE 59; RESP 16; TEMP 36.6; O2SAT 100
[2020-04-15] MEDS: Polyethylene Glycol 3350 17 GM PACKET PO (06:45)
[2020-04-15] MEDS: levETIRAcetam 1,000 MG Tablet 1000 MG PO ×2 (06:45→18:52)
[2020-04-15] MEDS: Menthol/Lanolin/Calamine/Znox 113 GM Tube 1 APPLIC TOPICAL ×3 (06:46→22:24)
[2020-04-15] MEDS: NYSTATIN 500,000 UNIT/5 ML UDC 500000 UNIT PO ×4 (06:46→22:22)
[2020-04-15] MEDS: Nystatin Powder 15gm Bottle 1 APPLIC TOPICAL ×2 (06:46→22:22)
[2020-04-15] MEDS: Aspirin 81 MG TAB.CHEW PO (08:36)
[2020-04-15] MEDS: Multivitamins,Ther W-Minerals Tablet 1 TABLET PO (08:36)
--- NOTE | 2020-04-15 10:40 | MDS.RN ---
Information for the mds was obtained from review of the clinical record, interview of resident, staff, and direct observation of resident's care.
--- NOTE | 2020-04-15 13:16 | NURSING ---
In to reassess buttocks. patient had large BM while up with therapy. pt cleaned. open area to buttock remains stable. some mild shearing noted to the left buttock. applied stoma powder to the open area followed by skin prep. applied calmoseptine as ordered. pt tolerated well. will continue to monitor.
[2020-04-15 14:14] VITALS: BP 117/80; PULSE 62; RESP 14; TEMP 36.6; O2SAT 96
[2020-04-15] MEDS: Tamsulosin HCl 0.4 MG Capsule PO (18:59)
[2020-04-15] MEDS: Atorvastatin Calcium 80 MG Tablet PO (22:21)
[2020-04-16 04:41] VITALS: BP 105/77; PULSE 68; RESP 18; O2SAT 92
[2020-04-16] MEDS: Nystatin Powder 15gm Bottle 1 APPLIC TOPICAL ×2 (05:18→22:24)
[2020-04-16] MEDS: Menthol/Lanolin/Calamine/Znox 113 GM Tube 1 APPLIC TOPICAL ×3 (05:18→22:23)
[2020-04-16] MEDS: Polyethylene Glycol 3350 17 GM PACKET PO (05:19)
[2020-04-16] MEDS: NYSTATIN 500,000 UNIT/5 ML UDC 500000 UNIT PO ×4 (05:19→22:24)
[2020-04-16] MEDS: levETIRAcetam 1,000 MG Tablet 1000 MG PO ×2 (05:19→18:00)
[2020-04-16] MEDS: Aspirin 81 MG TAB.CHEW PO (08:00)
[2020-04-16] MEDS: Multivitamins,Ther W-Minerals Tablet 1 TABLET PO (08:00)
[2020-04-16 13:44] VITALS: BP 108/73; PULSE 76; RESP 14; TEMP 36.1; O2SAT 99
[2020-04-16] MEDS: Tamsulosin HCl 0.4 MG Capsule PO (18:00)
[2020-04-16] MEDS: Atorvastatin Calcium 80 MG Tablet PO (22:23)
[2020-04-16 22:30] VITALS: PULSE 67; RESP 14; O2SAT 93
[2020-04-17 04:00] VITALS: BP 128/86; PULSE 88; RESP 15; O2SAT 97
[2020-04-17] MEDS: levETIRAcetam 1,000 MG Tablet 1000 MG PO ×2 (05:14→17:27)
[2020-04-17] MEDS: Polyethylene Glycol 3350 17 GM PACKET PO (05:14)
[2020-04-17] MEDS: Nystatin Powder 15gm Bottle 1 APPLIC TOPICAL ×2 (05:14→21:21)
[2020-04-17] MEDS: Menthol/Lanolin/Calamine/Znox 113 GM Tube 1 APPLIC TOPICAL ×3 (05:14→21:22)
[2020-04-17] MEDS: NYSTATIN 500,000 UNIT/5 ML UDC 500000 UNIT PO ×4 (05:15→21:16)
[2020-04-17] MEDS: Aspirin 81 MG TAB.CHEW PO (08:47)
[2020-04-17] MEDS: Multivitamins,Ther W-Minerals Tablet 1 TABLET PO (08:49)
[2020-04-17 10:00] VITALS: PULSE 83; RESP 16
[2020-04-17 14:41] VITALS: BP 112/71; PULSE 76; RESP 18; TEMP 37; O2SAT 96
[2020-04-17] MEDS: Tamsulosin HCl 0.4 MG Capsule PO (17:27)
[2020-04-17] MEDS: Atorvastatin Calcium 80 MG Tablet PO (21:16)
[2020-04-18] MEDS: Nystatin Powder 15gm Bottle 1 APPLIC TOPICAL ×2 (05:23→19:45)
[2020-04-18] MEDS: Menthol/Lanolin/Calamine/Znox 113 GM Tube 1 APPLIC TOPICAL ×3 (05:23→19:45)
[2020-04-18] MEDS: levETIRAcetam 1,000 MG Tablet 1000 MG PO ×2 (05:29→17:01)
[2020-04-18] MEDS: NYSTATIN 500,000 UNIT/5 ML UDC 500000 UNIT PO ×4 (05:29→19:44)
[2020-04-18] MEDS: Polyethylene Glycol 3350 17 GM PACKET PO (05:29)
[2020-04-18 05:33] VITALS: BP 104/73; PULSE 72; RESP 18; TEMP 36.1; O2SAT 94
[2020-04-18] MEDS: Multivitamins,Ther W-Minerals Tablet 1 TABLET PO (10:00)
[2020-04-18] MEDS: Aspirin 81 MG TAB.CHEW PO (10:03)
[2020-04-18 14:30] VITALS: BP 115/74; PULSE 66; RESP 18; TEMP 36.4; O2SAT 95
[2020-04-18] MEDS: Tamsulosin HCl 0.4 MG Capsule PO (17:01)
[2020-04-18] MEDS: Atorvastatin Calcium 80 MG Tablet PO (19:41)
[2020-04-19 05:36] VITALS: BP 129/57; PULSE 71; RESP 18; TEMP 36.7; O2SAT 93
[2020-04-19] MEDS: NYSTATIN 500,000 UNIT/5 ML UDC 500000 UNIT PO ×4 (05:39→20:20)
[2020-04-19] MEDS: levETIRAcetam 1,000 MG Tablet 1000 MG PO ×2 (05:39→18:18)
[2020-04-19] MEDS: Polyethylene Glycol 3350 17 GM PACKET PO (05:43)
[2020-04-19] MEDS: Nystatin Powder 15gm Bottle 1 APPLIC TOPICAL ×2 (05:46→20:21)
[2020-04-19] MEDS: Menthol/Lanolin/Calamine/Znox 113 GM Tube 1 APPLIC TOPICAL ×3 (05:46→20:21)
[2020-04-19] MEDS: Multivitamins,Ther W-Minerals Tablet 1 TABLET PO (08:22)
[2020-04-19] MEDS: Aspirin 81 MG TAB.CHEW PO (08:22)
[2020-04-19 13:42] VITALS: PULSE 78; RESP 18; O2SAT 94
--- NOTE | 2020-04-19 13:56 | NURSING ---
Pt currently sitting up in chair. will attempt to reassess buttocks later today or in am.
[2020-04-19 15:22] VITALS: BP 124/68; PULSE 78; RESP 16; TEMP 36.8; O2SAT 94
[2020-04-19] MEDS: Tamsulosin HCl 0.4 MG Capsule PO (18:17)
[2020-04-19] MEDS: Atorvastatin Calcium 80 MG Tablet PO (20:24)
[2020-04-20 05:16] VITALS: BP 105/71; PULSE 75; RESP 18; TEMP 36.3; O2SAT 96
[2020-04-20] MEDS: Menthol/Lanolin/Calamine/Znox 113 GM Tube 1 APPLIC TOPICAL ×3 (05:18→21:31)
[2020-04-20] MEDS: levETIRAcetam 1,000 MG Tablet 1000 MG PO ×2 (05:18→17:52)
[2020-04-20] MEDS: Nystatin Powder 15gm Bottle 1 APPLIC TOPICAL ×2 (05:18→21:32)
[2020-04-20] MEDS: Polyethylene Glycol 3350 17 GM PACKET PO (05:19)
[2020-04-20] MEDS: NYSTATIN 500,000 UNIT/5 ML UDC 500000 UNIT PO ×2 (05:24→11:57)
[2020-04-20] MEDS: Multivitamins,Ther W-Minerals Tablet 1 TABLET PO (07:43)
[2020-04-20] MEDS: Aspirin 81 MG TAB.CHEW PO (07:43)
[2020-04-20 13:11] VITALS: BP 142/88; PULSE 74; RESP 16; TEMP 36.7; O2SAT 98
--- NOTE | 2020-04-20 13:48 | CASEMGMT ---
Social Work Spoke with pt's S.O. to give her update and plan for discharge. Explained pt remains incontinent with B&B, pt has a clemens, unable to utilize computer to communicate, significant retro lean, poor trunk control, walking 25 ft but varies d/t to right leg strength. Therapy recommending 30/04 care at DC. Inquired if S.O. can assist with pt with above for him to return home. S.O. stated she will have to discuss this with the children and is scared about him going to a SNF d/t COVID. Explained no DC date yet as therapy would like to continue working with pt, but knowing she is paying privately for copays beginning 04/26, and she does not return from vacation until 04/28, wanted to provide updates. Offered continued assistance with discharge planning. Will continue to follow. PRIYA Naidu SAS BI DEVELOPER
--- NOTE | 2020-04-20 14:40 | NURSING ---
family was updated by UNDERCAR SPECIALIST
--- NOTE | 2020-04-20 14:45 | NURSING ---
wound photo: bilateral buttocks
[2020-04-20 15:43] VITALS: BP 144/78; PULSE 77; RESP 14; TEMP 36.9; O2SAT 94
[2020-04-20] MEDS: BACITRACIN 15 GM Tube 1 APPLIC TOPICAL (17:51)
[2020-04-20] MEDS: Tamsulosin HCl 0.4 MG Capsule PO (17:52)
[2020-04-20] MEDS: Atorvastatin Calcium 80 MG Tablet PO (21:29)
[2020-04-21 05:32] VITALS: BP 108/74; PULSE 75; RESP 18; TEMP 36.8; O2SAT 91
[2020-04-21] MEDS: Polyethylene Glycol 3350 17 GM PACKET PO (05:35)
[2020-04-21] MEDS: levETIRAcetam 1,000 MG Tablet 1000 MG PO ×2 (05:36→17:32)
[2020-04-21] MEDS: Menthol/Lanolin/Calamine/Znox 113 GM Tube 1 APPLIC TOPICAL ×3 (05:40→20:42)
[2020-04-21] MEDS: Nystatin Powder 15gm Bottle 1 APPLIC TOPICAL ×2 (05:40→20:42)
[2020-04-21] MEDS: BACITRACIN 15 GM Tube 1 APPLIC TOPICAL ×2 (05:41→17:32)
[2020-04-21] MEDS: Doxycycline 100 MG CAPSULE PO ×2 (08:43→17:32)
[2020-04-21] MEDS: Aspirin 81 MG TAB.CHEW PO (08:43)
--- NOTE | 2020-04-21 08:52 | NURSING ---
warm compress applied to RT inner thigh per order. pt sitting up in bed eating brkfst w/assist
[2020-04-21 10:24] VITALS: PULSE 77; RESP 16; O2SAT 94
[2020-04-21 14:35] VITALS: BP 125/83; PULSE 65; RESP 16; TEMP 36.3; O2SAT 93
[2020-04-21] MEDS: Tamsulosin HCl 0.4 MG Capsule PO (17:32)
[2020-04-21] MEDS: Atorvastatin Calcium 80 MG Tablet PO (20:43)
[2020-04-22 06:13] VITALS: BP 105/76; PULSE 79; RESP 18; TEMP 36.8; O2SAT 93
[2020-04-22] MEDS: BACITRACIN 15 GM Tube 1 APPLIC TOPICAL ×2 (06:14→18:24)
[2020-04-22] MEDS: Menthol/Lanolin/Calamine/Znox 113 GM Tube 1 APPLIC TOPICAL ×3 (06:15→21:29)
[2020-04-22] MEDS: Nystatin Powder 15gm Bottle 1 APPLIC TOPICAL ×2 (06:15→21:31)
[2020-04-22] MEDS: Polyethylene Glycol 3350 17 GM PACKET PO (06:26)
[2020-04-22] MEDS: levETIRAcetam 1,000 MG Tablet 1000 MG PO ×2 (06:26→18:24)
[2020-04-22] MEDS: Aspirin 81 MG TAB.CHEW PO (08:56)
[2020-04-22 14:40] VITALS: BP 103/74; PULSE 82; RESP 16; TEMP 36.5; O2SAT 98
[2020-04-22] MEDS: Tamsulosin HCl 0.4 MG Capsule PO (18:24)
[2020-04-22] MEDS: Atorvastatin Calcium 80 MG Tablet PO (21:20)
[2020-04-23 06:19] VITALS: BP 114/73; PULSE 64; RESP 16; TEMP 36.8; O2SAT 96
[2020-04-23] MEDS: BACITRACIN 15 GM Tube 1 APPLIC TOPICAL ×2 (06:19→17:20)
[2020-04-23] MEDS: Menthol/Lanolin/Calamine/Znox 113 GM Tube 1 APPLIC TOPICAL ×3 (06:20→20:26)
[2020-04-23] MEDS: Polyethylene Glycol 3350 17 GM PACKET PO (06:20)
[2020-04-23] MEDS: levETIRAcetam 1,000 MG Tablet 1000 MG PO ×2 (06:20→17:19)
[2020-04-23] MEDS: Nystatin Powder 15gm Bottle 1 APPLIC TOPICAL ×2 (06:20→20:26)
[2020-04-23] MEDS: Aspirin 81 MG TAB.CHEW PO (08:26)
[2020-04-23 13:56] VITALS: BP 95/67; PULSE 81; RESP 16; TEMP 36.2; O2SAT 95
[2020-04-23] MEDS: Tamsulosin HCl 0.4 MG Capsule PO (17:19)
[2020-04-23] MEDS: Atorvastatin Calcium 80 MG Tablet PO (20:27)
[2020-04-24] MEDS: Menthol/Lanolin/Calamine/Znox 113 GM Tube 1 APPLIC TOPICAL ×3 (06:17→20:16)
[2020-04-24] MEDS: Nystatin Powder 15gm Bottle 1 APPLIC TOPICAL ×2 (06:17→20:17)
[2020-04-24 06:18] VITALS: BP 122/76; PULSE 68; RESP 16; TEMP 36; O2SAT 94
[2020-04-24] MEDS: BACITRACIN 15 GM Tube 1 APPLIC TOPICAL ×2 (06:18→16:42)
[2020-04-24] MEDS: levETIRAcetam 1,000 MG Tablet 1000 MG PO ×2 (06:19→16:42)
[2020-04-24] MEDS: Polyethylene Glycol 3350 17 GM PACKET PO (06:19)
[2020-04-24] MEDS: Aspirin 81 MG TAB.CHEW PO (09:02)
[2020-04-24 12:24] VITALS: PULSE 64; RESP 16; O2SAT 94
[2020-04-24 14:09] VITALS: BP 117/80; PULSE 68; RESP 16; TEMP 37.3; O2SAT 96
[2020-04-24] MEDS: Tamsulosin HCl 0.4 MG Capsule PO (16:41)
[2020-04-24] MEDS: Atorvastatin Calcium 80 MG Tablet PO (20:17)
[2020-04-25 04:44] VITALS: BP 101/66; PULSE 69; RESP 16; TEMP 36.8; O2SAT 98
[2020-04-25] MEDS: BACITRACIN 15 GM Tube 1 APPLIC TOPICAL ×2 (04:50→17:16)
[2020-04-25] MEDS: Menthol/Lanolin/Calamine/Znox 113 GM Tube 1 APPLIC TOPICAL ×3 (04:50→19:59)
[2020-04-25] MEDS: Polyethylene Glycol 3350 17 GM PACKET PO (04:51)
[2020-04-25] MEDS: Nystatin Powder 15gm Bottle 1 APPLIC TOPICAL ×2 (04:51→19:59)
[2020-04-25] MEDS: levETIRAcetam 1,000 MG Tablet 1000 MG PO ×2 (04:51→17:15)
[2020-04-25 06:47] LABS: Absolute Lymphocyte Count 1.53 X10^3/uL (0.83-4.51); Absolute Neutrophil Count 6.3 X10^3/uL (2.0-7.7); Basophil# 0.11 X10^3/uL; Basophil% 1.2 % (0-1); Eosinophil# 0.52 X10^3/uL; Eosinophils% 5.7 % (0-5); Hematocrit 40.6 % (40-54); Hemoglobin 12.7 g/dL (13.0-16.5); Lymphocyte # 1.53 X10^3/ul (4.0); Lymphocyte % 16.7 % (19-41); Mean Corp Hgb Conc 31.3 g/dL (32-36); Mean Corpuscular Hgb 28.7 pg (27.0-32.0); Mean Corpuscular Volume 91.9 fL (80-94); Mean Platelet Vol. 10.3 fl (6.2-12.0); Monocyte# 0.64 X10^3/uL; NRBC Flagged by Analyzer 0 % (0-5); Neutrophil # 6.33 X10^3/uL (2.7-7.7); Platelet Count 263 K/mm3 (150-450); RBC Distribution Width CV 13.2 % (11.6-14.6); RBC Distribution Width SD 43.4 fl (35.1-43.9); Red Blood Count 4.42 M/mm3 (4.6-6.2); White Blood Count 9.2 K/mm3 (4.4-11.0)
[2020-04-25 06:52] LABS: Anion Gap 4 (5-15); BUN 17 mg/dL (7-18); BUN/Creat Ratio 17.9 RATIO (10-20); Chloride 110 mmol/L (98-107); Creatinine, Serum 0.95 mg/dL (0.70-1.30); EST Glomerular Filtration Rate 84 mL/min (>60); Est Glom Filt Rate - Afr Amer 102 mL/min (>60); Estimated Creatinine Clearance 78.98 ml/min; Glucose 97 mg/dL (74-106); Potassium 4.1 mmol/L (3.5-5.1); Sodium Level 139 mmol/L (136-145)
[2020-04-25] MEDS: Acetaminophen 325 MG Tablet 650 MG PO (08:39)
[2020-04-25] MEDS: Aspirin 81 MG TAB.CHEW PO (08:41)
--- NOTE | 2020-04-25 09:54 | NURSING ---
blister opened to RT thigh, removed mepilex & reapplied another for protection. w/out redness or drng. pt assisted x2 from recliner chair to bed. clemens intact patent & drng dark straw color urine.touch call light attached to gown for easy reach. RT arm elevated on pillow. positioned on RT side.
[2020-04-25 14:39] VITALS: BP 108/69; PULSE 72; RESP 17; TEMP 36.5; O2SAT 96
[2020-04-25] MEDS: Tamsulosin HCl 0.4 MG Capsule PO (17:16)
[2020-04-25] MEDS: Atorvastatin Calcium 80 MG Tablet PO (19:59)
[2020-04-26 04:34] VITALS: BP 106/79; PULSE 63; RESP 18; TEMP 36
[2020-04-26] MEDS: Polyethylene Glycol 3350 17 GM PACKET PO (04:37)
[2020-04-26] MEDS: levETIRAcetam 1,000 MG Tablet 1000 MG PO ×2 (04:37→17:23)
[2020-04-26] MEDS: BACITRACIN 15 GM Tube 1 APPLIC TOPICAL ×2 (04:38→17:22)
[2020-04-26] MEDS: Nystatin Powder 15gm Bottle 1 APPLIC TOPICAL ×2 (04:38→20:29)
[2020-04-26] MEDS: Menthol/Lanolin/Calamine/Znox 113 GM Tube 1 APPLIC TOPICAL ×3 (04:38→20:29)
[2020-04-26] MEDS: Aspirin 81 MG TAB.CHEW PO (08:26)
[2020-04-26 10:00] VITALS: PULSE 83; RESP 14; O2SAT 92
[2020-04-26 14:04] VITALS: BP 108/82; PULSE 64; RESP 12; TEMP 36.9; O2SAT 92
[2020-04-26] MEDS: Tamsulosin HCl 0.4 MG Capsule PO (17:22)
[2020-04-26] MEDS: Atorvastatin Calcium 80 MG Tablet PO (20:28)
[2020-04-27 06:30] VITALS: BP 116/72; PULSE 63; RESP 18; TEMP 36.8; O2SAT 94
[2020-04-27] MEDS: Polyethylene Glycol 3350 17 GM PACKET PO (06:32)
[2020-04-27] MEDS: levETIRAcetam 1,000 MG Tablet 1000 MG PO ×2 (06:32→17:54)
[2020-04-27] MEDS: Nystatin Powder 15gm Bottle 1 APPLIC TOPICAL ×2 (06:35→21:01)
[2020-04-27] MEDS: Menthol/Lanolin/Calamine/Znox 113 GM Tube 1 APPLIC TOPICAL ×3 (06:35→21:02)
[2020-04-27] MEDS: Aspirin 81 MG TAB.CHEW PO (08:59)
[2020-04-27 15:05] VITALS: BP 114/72; PULSE 79; RESP 18; TEMP 36.3; O2SAT 97
[2020-04-27] MEDS: Tamsulosin HCl 0.4 MG Capsule PO (17:54)
[2020-04-27] MEDS: Atorvastatin Calcium 80 MG Tablet PO (21:03)
[2020-04-28 05:28] VITALS: BP 121/76; PULSE 70; RESP 18; TEMP 36.6; O2SAT 94
[2020-04-28] MEDS: levETIRAcetam 1,000 MG Tablet 1000 MG PO ×2 (05:33→17:34)
[2020-04-28] MEDS: Polyethylene Glycol 3350 17 GM PACKET PO (05:34)
[2020-04-28] MEDS: Menthol/Lanolin/Calamine/Znox 113 GM Tube 1 APPLIC TOPICAL ×3 (05:35→21:31)
[2020-04-28] MEDS: Nystatin Powder 15gm Bottle 1 APPLIC TOPICAL ×2 (05:36→21:31)
[2020-04-28] MEDS: Aspirin 81 MG TAB.CHEW PO (08:34)
[2020-04-28 10:00] VITALS: PULSE 69; RESP 14; O2SAT 97
[2020-04-28 14:05] VITALS: BP 107/68; PULSE 80; RESP 20; TEMP 36.8; O2SAT 92
[2020-04-28] MEDS: Tamsulosin HCl 0.4 MG Capsule PO (17:34)
[2020-04-28] MEDS: Atorvastatin Calcium 80 MG Tablet PO (21:28)
[2020-04-29] MEDS: Polyethylene Glycol 3350 17 GM PACKET PO (05:20)
[2020-04-29] MEDS: levETIRAcetam 1,000 MG Tablet 1000 MG PO ×2 (05:20→17:13)
[2020-04-29] MEDS: Nystatin Powder 15gm Bottle 1 APPLIC TOPICAL ×2 (05:22→20:47)
[2020-04-29] MEDS: Menthol/Lanolin/Calamine/Znox 113 GM Tube 1 APPLIC TOPICAL ×3 (05:22→20:52)
[2020-04-29 05:42] VITALS: BP 100/68; PULSE 67; RESP 20; TEMP 36.5; O2SAT 96
[2020-04-29] MEDS: Aspirin 81 MG TAB.CHEW PO (08:18)
[2020-04-29 13:33] VITALS: BP 131/77; PULSE 63; RESP 16; TEMP 36.2; O2SAT 94
[2020-04-29] MEDS: Tamsulosin HCl 0.4 MG Capsule PO (17:13)
[2020-04-29] MEDS: Atorvastatin Calcium 80 MG Tablet PO (20:47)
[2020-04-30 05:08] VITALS: BP 110/77; PULSE 64; RESP 16; TEMP 36.3; O2SAT 95
[2020-04-30] MEDS: Nystatin Powder 15gm Bottle 1 APPLIC TOPICAL ×2 (05:10→20:19)
[2020-04-30] MEDS: Menthol/Lanolin/Calamine/Znox 113 GM Tube 1 APPLIC TOPICAL ×3 (05:10→20:19)
[2020-04-30] MEDS: Polyethylene Glycol 3350 17 GM PACKET PO (05:11)
[2020-04-30] MEDS: levETIRAcetam 1,000 MG Tablet 1000 MG PO ×2 (05:11→17:17)
[2020-04-30] MEDS: Aspirin 81 MG TAB.CHEW PO (08:37)
[2020-04-30 14:08] VITALS: BP 118/74; PULSE 82; RESP 20; TEMP 36.2; O2SAT 96
[2020-04-30] MEDS: Tamsulosin HCl 0.4 MG Capsule PO (17:16)
[2020-04-30] MEDS: Atorvastatin Calcium 80 MG Tablet PO (20:20)
[2020-05-01] MEDS: Menthol/Lanolin/Calamine/Znox 113 GM Tube 1 APPLIC TOPICAL ×3 (05:39→20:27)
[2020-05-01] MEDS: Nystatin Powder 15gm Bottle 1 APPLIC TOPICAL ×2 (05:39→20:26)
[2020-05-01 05:40] VITALS: BP 114/76; PULSE 66; RESP 16; TEMP 36.2; O2SAT 93
[2020-05-01] MEDS: Polyethylene Glycol 3350 17 GM PACKET PO (05:40)
[2020-05-01] MEDS: levETIRAcetam 1,000 MG Tablet 1000 MG PO ×2 (05:40→17:42)
[2020-05-01] MEDS: Aspirin 81 MG TAB.CHEW PO (08:06)
[2020-05-01 10:00] VITALS: PULSE 71; RESP 14; O2SAT 98
[2020-05-01 13:49] VITALS: BP 107/69; PULSE 71; RESP 16; TEMP 36.7; O2SAT 94
[2020-05-01] MEDS: Tamsulosin HCl 0.4 MG Capsule PO (17:42)
[2020-05-01] MEDS: Atorvastatin Calcium 80 MG Tablet PO (20:26)
[2020-05-02 05:42] VITALS: BP 108/67; PULSE 62; RESP 16; TEMP 37.1; O2SAT 95
[2020-05-02] MEDS: levETIRAcetam 1,000 MG Tablet 1000 MG PO ×2 (05:42→16:57)
[2020-05-02] MEDS: Menthol/Lanolin/Calamine/Znox 113 GM Tube 1 APPLIC TOPICAL ×3 (05:43→21:24)
[2020-05-02] MEDS: Polyethylene Glycol 3350 17 GM PACKET PO (05:43)
[2020-05-02] MEDS: Nystatin Powder 15gm Bottle 1 APPLIC TOPICAL ×2 (05:43→21:24)
[2020-05-02 06:12] LABS: Absolute Lymphocyte Count 1.79 X10^3/uL (0.83-4.51); Absolute Neutrophil Count 6.3 X10^3/uL (2.0-7.7); Basophil# 0.09 X10^3/uL; Basophil% 0.9 % (0-1); Eosinophil# 0.94 X10^3/uL; Eosinophils% 9.5 % (0-5); Hematocrit 40.9 % (40-54); Hemoglobin 12.8 g/dL (13.0-16.5); Lymphocyte # 1.79 X10^3/ul (4.0); Lymphocyte % 18.1 % (19-41); Mean Corp Hgb Conc 31.3 g/dL (32-36); Mean Corpuscular Hgb 28.6 pg (27.0-32.0); Mean Corpuscular Volume 91.5 fL (80-94); Mean Platelet Vol. 10.3 fl (6.2-12.0); Monocyte# 0.72 X10^3/uL; Monocyte% 7.3 % (0-10); NRBC Flagged by Analyzer 0 % (0-5); Neutrophil # 6.29 X10^3/uL (2.7-7.7); Neutrophil % 63.6 % (47-70); Platelet Count 212 K/mm3 (150-450); RBC Distribution Width CV 13.4 % (11.6-14.6); RBC Distribution Width SD 44.8 fl (35.1-43.9); Red Blood Count 4.47 M/mm3 (4.6-6.2); White Blood Count 9.9 K/mm3 (4.4-11.0)
[2020-05-02] MEDS: Aspirin 81 MG TAB.CHEW PO (07:56)
[2020-05-02 14:18] VITALS: BP 125/40; PULSE 72; RESP 16; TEMP 36.6; O2SAT 95
[2020-05-02] MEDS: Tamsulosin HCl 0.4 MG Capsule PO (16:57)
[2020-05-02] MEDS: Atorvastatin Calcium 80 MG Tablet PO (21:19)
[2020-05-03 06:20] VITALS: BP 108/72; PULSE 62; RESP 16; TEMP 36.6; O2SAT 92
[2020-05-03] MEDS: levETIRAcetam 1,000 MG Tablet 1000 MG PO ×2 (06:21→17:15)
[2020-05-03] MEDS: Polyethylene Glycol 3350 17 GM PACKET PO (06:22)
[2020-05-03] MEDS: Nystatin Powder 15gm Bottle 1 APPLIC TOPICAL ×2 (06:23→20:00)
[2020-05-03] MEDS: Menthol/Lanolin/Calamine/Znox 113 GM Tube 1 APPLIC TOPICAL ×3 (06:23→20:00)
[2020-05-03 06:30] LABS: Anion Gap 6 (5-15); BUN 14 mg/dL (7-18); BUN/Creat Ratio 14.2 RATIO (10-20); Calcium,Total 8.6 mg/dL (8.5-10.1); Chloride 107 mmol/L (98-107); Creatinine, Serum 0.98 mg/dL (0.70-1.30); EST Glomerular Filtration Rate 81 mL/min (>60); Est Glom Filt Rate - Afr Amer 98 mL/min (>60); Estimated Creatinine Clearance 76.56 ml/min; Glucose 99 mg/dL (74-106); Potassium 3.7 mmol/L (3.5-5.1); Sodium Level 138 mmol/L (136-145)
[2020-05-03] MEDS: Aspirin 81 MG TAB.CHEW PO (08:39)
[2020-05-03 10:00] VITALS: PULSE 76; O2SAT 95
[2020-05-03 14:20] VITALS: BP 100/71; PULSE 71; RESP 16; TEMP 36.9; O2SAT 95
[2020-05-03] MEDS: Tamsulosin HCl 0.4 MG Capsule PO (17:15)
[2020-05-03] MEDS: Atorvastatin Calcium 80 MG Tablet PO (19:57)
--- NOTE | 2020-05-03 20:55 | PN_ITS ---
Subjective: Resident seen in room, sitting in recliner, eating supper. He has no new issues, concerns, complaints, problems, but he is suffering expressive aphasia, and may have difficulty getting his thoughts into words. Vitals/I&O's: Vital Signs Temp Pulse Resp BP Pulse Ox 98.4 F 71 16 100/71 95 05/03/20 14:20 05/03/20 14:20 05/03/20 14:20 05/03/20 14:20 05/03/20 14:20 Oxygen Delivery Method Room Air Weight: 78.075 kg Body Mass Index (BMI) 26.5 Finger Stick Blood Glucose 111 Intake and Output for Last 24 Hours 05/01/20 05/02/20 05/03/20 23:59 23:59 23:59 Intake Total 840 / 840 1080 / 1080 480 / 480 Output Total 850 / 850 350 / 350 1500 / 1500 Balance -10 / -10 730 / 730 -1020 / -1020 Laboratory Results 05/03/20 05:15: Sodium 138, Potassium 3.7, Chloride 107, Carbon Dioxide 25.0, Anion Gap 6, BUN 14, Creatinine 0.98, Estim Creat Clear Calc 76.56, Est GFR (MDRD) Af Amer 98, Est GFR (MDRD) Non-Af 81, BUN/Creatinine Ratio 14.2, Glucose 99, Calcium 8.6 Past Medical History Past Medical History (Chronic Problems): Chronic Problems Right hemiparesis (Chronic) Seizure disorder (Chronic) Hyperlipidemia (Chronic) BPH (benign prostatic hyperplasia) (Chronic) Fatty liver (Chronic) Allergies Iodinated Contrast Media [CONTRASTS] Allergy (Verified 03/19/19 14:02) Hives Home Medications: Ambulatory Orders Medication Instructions Recorded Levetiracetam 500 mg PO BID 03/21/20 Surgical History: no surgical history Psychiatric History: No pertinent psych hx Lives: Spouse/ Significant Other Smoking Status: Former smoker Tobacco Use: Non-smoker Alcohol: None Drugs: None - *Family History Maternal History Items: No pertinent history Paternal History Items: No pertinent history Capacity - Capacity Assessment Tool Can the patient make a choice & communicate that choice?: No Can the patient understand benefits, risks and alternatives?: No Can the patient make a logical, rational choice?: No Is the choice the patient makes consistent w/ their values?: Unable to Determine Is there an impending, emergent risk to the patient?: No Does the patient have an Advance Directive?: Yes Is there a Surrogate Available?: Yes i.e. HCPOA: Yes i.e. close relative (spouse, child, parent, sibling)?: Yes Review of Systems Constitutional: Denies: Chills, Fever, Weight Change HEENT: Denies: Head Aches, Sinus Congestion, Sinus Drainage Cardiovascular: Denies: Chest Pain, Palpitations Respiratory: Denies: Cough, Shortness of breath at rest, Sputum production Gastrointestinal: Denies: Abdominal Pain, Nausea, Vomiting Genitourinary: Denies: Dysuria Musculoskeletal: Denies: Joint Pain, Joint Tenderness Skin: Denies: Rash, Wounds Neurological: Denies: Numbness, Tingling, Focal weakness Psychiatric: Denies: Anxiety, Depression, Homicidal Ideations, Suicidal Ideations Hematologic/ Lymphatic: Denies: Easy Bruising, Easy Bleeding Patient Problems: Active and Suspected Problems Debility (Acute) Encephalopathy (Acute) Mixed aphasia (Acute) Dysphagia (Acute) Urinary incontinence (Acute) Hospital-acquired pneumonia (Acute) Stroke (Acute) - Physical Exam Vitals/I&O's: Vital Signs Temp Pulse Resp BP Pulse Ox 98.4 F 71 16 100/71 95 05/03/20 14:20 05/03/20 14:20 05/03/20 14:20 05/03/20 14:20 05/03/20 14:20 Oxygen Delivery Method Room Air Weight: 78.075 kg Body Mass Index (BMI) 26.5 Finger Stick Blood Glucose 111 Intake and Output for Last 24 Hours 05/01/20 05/02/20 05/03/20 23:59 23:59 23:59 Intake Total 840 / 840 1080 / 1080 480 / 480 Output Total 850 / 850 350 / 350 1500 / 1500 Balance -10 / -10 730 / 730 -1020 / -1020 General: Alert, Oriented x3, Cooperative HEENT: Atraumatic, PERRLA, EOMI, Normocephalic Neck: Supple, No JVD, Negative Carotid Bruits Lungs: Clear to auscultation, Normal air movement Cardiovascular: Regular rate, No murmurs Abdomen: Bowel Sounds Present, Soft, Non Tender Extremities: No edema, Capillary Refill Less than 3 Seconds Skin: No rashes, No breakdown Musculoskeletal: No Tenderness to Palpation of Joints or Extremities Neurological: Cranial nerves II-XII grossly intact Psych/Mental Status: Normal Affect, Appropriate Laboratory Results 05/03/20 05:15: Sodium 138, Potassium 3.7, Chloride 107, Carbon Dioxide 25.0, Anion Gap 6, BUN 14, Creatinine 0.98, Estim Creat Clear Calc 76.56, Est GFR (MDRD) Af Amer 98, Est GFR (MDRD) Non-Af 81, BUN/Creatinine Ratio 14.2, Glucose 99, Calcium 8.6 Current Medications Acetaminophen (Tylenol) 650 mg PO Q4H PRN PRN PRN Reason: Pain Score 1-10 Last Admin: 04/25/20 08:39 Dose: 650 mg Documented by: Aspirin (Aspirin, Baby) 81 mg PO DAILY@0800 [facility] Last Admin: 05/03/20 08:39 Dose: 81 mg Documented by: Atorvastatin Calcium (Lipitor) 80 mg PO QHS [facility] Last Admin: 05/03/20 19:57 Dose: 80 mg Documented by: Bacitracin (Bacitracin Ointment) 1 applic TOPICAL BID PRN PRN; Protocol PRN Reason: redness Calamine/Phenol (Calmoseptine Ointment) 1 applic TOPICAL TID [facility]; Protocol Last Admin: 05/03/20 20:00 Dose: 1 applicatio Documented by: Levetiracetam (Keppra Tablet) 1,000 mg PO BID [facility] Last Admin: 05/03/20 17:15 Dose: 1,000 mg Documented by: Lorazepam (Ativan) 0.5 mg PO Q6H PRN PRN PRN Reason: Agitation/Restlessness Nystatin (Mycostatin Powder) 1 applic TOPICAL 0600,2200 [facility]; Protocol Last Admin: 05/03/20 20:00 Dose: 1 applicatio Documented by: Polyethylene Glycol (Miralax) 17 gm PO DAILY [facility] Last Admin: 05/03/20 06:22 Dose: 17 gm Documented by: Tamsulosin HCl (Flomax) 0.4 mg PO DAILY@1730 [facility] Last Admin: 05/03/20 17:15 Dose: 0.4 mg Documented by: Assessment/Plan All Active Problems History of hemorrhagic stroke with residual hemiparesis (Acute) Debility (Acute) Encephalopathy (Acute) Mixed aphasia (Acute) Dysphagia (Acute) Urinary incontinence (Acute) Hospital-acquired pneumonia (Acute) Stroke (Acute) 64 year old male with below past medical history hospitalized for right basal ganglia stroke, complicated by dysphagia requiring tube feeding, hospital acquired pneumonia, admitted to TCU with debility, here for rehabilitation, [facility], prior to disposition determination, may require fpc care. * Debility - PT/OT. * Dysphagia - ST. * Pain - Tylenol 650MG Q4H pain (1-10). * Bowel - Miralax 17GM daily. * Adult immunization - Administer Prevnar 13, Pneumovax 23, Fluzone as appropriate. * DVT prophylaxis - Hold, history of hemorrhagic stroke. * Stroke - Aspirin 81MG daily. * Hyperlipidemia - High intensity Atorvastatin 80MG QHS. * Seizure disorder - Keppra 1000MG twice daily. * Agitation - Lorazepam 0.5MG Q6H PRN. * Nutrition - Eating diet now. * BPH - Tamsulosin 0.4MG daily. * Skin irritation - Calmoseptine TID. * Tinea Corporis - Nystatin powder twice daily. * Penile irritation - Bacitracin ointment topical twice daily PRN.
[2020-05-04] MEDS: levETIRAcetam 1,000 MG Tablet 1000 MG PO ×2 (04:40→17:15)
[2020-05-04] MEDS: Polyethylene Glycol 3350 17 GM PACKET PO (04:40)
[2020-05-04] MEDS: Nystatin Powder 15gm Bottle 1 APPLIC TOPICAL ×2 (04:41→20:10)
[2020-05-04] MEDS: Menthol/Lanolin/Calamine/Znox 113 GM Tube 1 APPLIC TOPICAL ×3 (04:41→20:10)
[2020-05-04 04:48] VITALS: BP 100/59; PULSE 72; RESP 18; TEMP 36.8; O2SAT 97
[2020-05-04] MEDS: Aspirin 81 MG TAB.CHEW PO (08:03)
[2020-05-04 13:50] VITALS: BP 102/76; PULSE 78; RESP 17; TEMP 36.6; O2SAT 98
--- NOTE | 2020-05-04 14:00 | NURSING ---
Pt currently with therapy. nursing states buttocks looking much better. will assess in am.
[2020-05-04] MEDS: Tamsulosin HCl 0.4 MG Capsule PO (17:15)
[2020-05-04] MEDS: Atorvastatin Calcium 80 MG Tablet PO (20:10)
[2020-05-04 21:50] VITALS: O2SAT 98
[2020-05-05 05:07] VITALS: BP 123/87; PULSE 65; RESP 16; TEMP 36.7; O2SAT 96
[2020-05-05] MEDS: levETIRAcetam 1,000 MG Tablet 1000 MG PO ×2 (05:09→16:59)
[2020-05-05] MEDS: Polyethylene Glycol 3350 17 GM PACKET PO (05:09)
[2020-05-05] MEDS: Nystatin Powder 15gm Bottle 1 APPLIC TOPICAL ×2 (05:09→20:15)
[2020-05-05] MEDS: Menthol/Lanolin/Calamine/Znox 113 GM Tube 1 APPLIC TOPICAL ×3 (05:09→20:15)
[2020-05-05] MEDS: Aspirin 81 MG TAB.CHEW PO (08:31)
[2020-05-05 13:27] VITALS: PULSE 73; RESP 18; O2SAT 98
[2020-05-05 14:02] VITALS: BP 105/75; PULSE 75; RESP 16; TEMP 36.5; O2SAT 93
--- NOTE | 2020-05-05 14:25 | NURSING ---
wound photo: bilateral buttocks
[2020-05-05] MEDS: Tamsulosin HCl 0.4 MG Capsule PO (16:59)
[2020-05-05] MEDS: Atorvastatin Calcium 80 MG Tablet PO (20:15)
[2020-05-06 05:45] VITALS: BP 110/65; PULSE 60; RESP 16; TEMP 36.9; O2SAT 91
[2020-05-06] MEDS: levETIRAcetam 1,000 MG Tablet 1000 MG PO ×2 (05:48→17:51)
[2020-05-06] MEDS: Nystatin Powder 15gm Bottle 1 APPLIC TOPICAL ×2 (05:52→19:49)
[2020-05-06] MEDS: Menthol/Lanolin/Calamine/Znox 113 GM Tube 1 APPLIC TOPICAL ×3 (05:52→19:49)
[2020-05-06] MEDS: Aspirin 81 MG TAB.CHEW PO (08:26)
[2020-05-06 14:14] VITALS: BP 102/71; PULSE 86; RESP 16; TEMP 36.7; O2SAT 94
--- NOTE | 2020-05-06 14:48 | CASEMGMT ---
Social Work contacted TONY and agreeable to schedule family training next week to determine if pt can return home under her care, if he needs more therapy or if he needs to go to a SNF. Therapy to contact to schedule. Will continue to follow. Arianna Montes MSW GEOLOGICAL SPECIALIST
[2020-05-06] MEDS: Tamsulosin HCl 0.4 MG Capsule PO (17:51)
[2020-05-06] MEDS: Atorvastatin Calcium 80 MG Tablet PO (19:45)
[2020-05-07 04:00] VITALS: BP 150/71; PULSE 70; RESP 17; TEMP 36.6; O2SAT 98
[2020-05-07] MEDS: Nystatin Powder 15gm Bottle 1 APPLIC TOPICAL ×2 (04:46→21:17)
[2020-05-07] MEDS: levETIRAcetam 1,000 MG Tablet 1000 MG PO ×2 (04:46→18:21)
[2020-05-07] MEDS: Menthol/Lanolin/Calamine/Znox 113 GM Tube 1 APPLIC TOPICAL ×3 (04:47→21:17)
[2020-05-07] MEDS: Aspirin 81 MG TAB.CHEW PO (07:38)
[2020-05-07 14:10] VITALS: BP 112/77; PULSE 74; RESP 17; TEMP 36.6; O2SAT 96
[2020-05-07] MEDS: Tamsulosin HCl 0.4 MG Capsule PO (18:21)
[2020-05-07] MEDS: Atorvastatin Calcium 80 MG Tablet PO (21:15)
[2020-05-08 05:26] VITALS: BP 108/62; PULSE 61; RESP 16; TEMP 36.2; O2SAT 95
[2020-05-08] MEDS: Menthol/Lanolin/Calamine/Znox 113 GM Tube 1 APPLIC TOPICAL ×3 (05:27→20:09)
[2020-05-08] MEDS: Nystatin Powder 15gm Bottle 1 APPLIC TOPICAL ×2 (05:27→20:09)
[2020-05-08] MEDS: levETIRAcetam 1,000 MG Tablet 1000 MG PO ×2 (05:28→17:25)
[2020-05-08] MEDS: Aspirin 81 MG TAB.CHEW PO (09:11)
[2020-05-08 14:17] VITALS: BP 126/69; PULSE 69; RESP 18; TEMP 36.7; O2SAT 98
[2020-05-08] MEDS: Tamsulosin HCl 0.4 MG Capsule PO (17:25)
[2020-05-08] MEDS: Atorvastatin Calcium 80 MG Tablet PO (20:10)
[2020-05-09 05:42] VITALS: BP 101/67; PULSE 66; RESP 16; TEMP 36.8; O2SAT 93
[2020-05-09] MEDS: Nystatin Powder 15gm Bottle 1 APPLIC TOPICAL ×2 (05:43→20:21)
[2020-05-09] MEDS: Menthol/Lanolin/Calamine/Znox 113 GM Tube 1 APPLIC TOPICAL ×3 (05:43→20:21)
[2020-05-09] MEDS: levETIRAcetam 1,000 MG Tablet 1000 MG PO ×2 (05:44→17:14)
[2020-05-09 06:23] LABS: Absolute Lymphocyte Count 1.43 X10^3/uL (0.83-4.51); Absolute Neutrophil Count 6.2 X10^3/uL (2.0-7.7); Basophil% 1.1 % (0-1); Eosinophil# 0.91 X10^3/uL; Eosinophils% 9.7 % (0-5); Hematocrit 40.6 % (40-54); Hemoglobin 12.6 g/dL (13.0-16.5); Lymphocyte # 1.43 X10^3/ul (4.0); Lymphocyte % 15.3 % (19-41); Mean Corpuscular Hgb 28.4 pg (27.0-32.0); Mean Corpuscular Volume 91.6 fL (80-94); Mean Platelet Vol. 10.6 fl (6.2-12.0); Monocyte# 0.66 X10^3/uL; Monocyte% 7.1 % (0-10); NRBC Flagged by Analyzer 0 % (0-5); Neutrophil # 6.22 X10^3/uL (2.7-7.7); Neutrophil % 66.5 % (47-70); Platelet Count 241 K/mm3 (150-450); RBC Distribution Width CV 13.7 % (11.6-14.6); RBC Distribution Width SD 45.7 fl (35.1-43.9); Red Blood Count 4.43 M/mm3 (4.6-6.2); White Blood Count 9.4 K/mm3 (4.4-11.0)
[2020-05-09 07:10] LABS: Anion Gap 6 (5-15); BUN 21 mg/dL (7-18); BUN/Creat Ratio 19.6 RATIO (10-20); Calcium,Total 8.7 mg/dL (8.5-10.1); Chloride 109 mmol/L (98-107); Creatinine, Serum 1.07 mg/dL (0.70-1.30); EST Glomerular Filtration Rate 74 mL/min (>60); Est Glom Filt Rate - Afr Amer 89 mL/min (>60); Estimated Creatinine Clearance 70.12 ml/min; Glucose 93 mg/dL (74-106); Potassium 3.6 mmol/L (3.5-5.1); Sodium Level 141 mmol/L (136-145)
[2020-05-09] MEDS: Aspirin 81 MG TAB.CHEW PO (09:45)
[2020-05-09 10:00] VITALS: RESP 16
[2020-05-09 14:27] VITALS: BP 110/72; PULSE 82; RESP 16; TEMP 36.8; O2SAT 91
[2020-05-09] MEDS: Tamsulosin HCl 0.4 MG Capsule PO (17:14)
[2020-05-09] MEDS: Atorvastatin Calcium 80 MG Tablet PO (20:21)
[2020-05-10] MEDS: Menthol/Lanolin/Calamine/Znox 113 GM Tube 1 APPLIC TOPICAL ×3 (06:04→20:52)
[2020-05-10] MEDS: levETIRAcetam 1,000 MG Tablet 1000 MG PO ×2 (06:05→17:01)
[2020-05-10] MEDS: Nystatin Powder 15gm Bottle 1 APPLIC TOPICAL ×2 (06:05→20:53)
[2020-05-10 06:09] VITALS: BP 114/74; PULSE 83; RESP 16; TEMP 36.6; O2SAT 94
[2020-05-10] MEDS: Aspirin 81 MG TAB.CHEW PO (07:56)
[2020-05-10 13:52] VITALS: BP 121/71; PULSE 66; RESP 14; TEMP 37.4; O2SAT 94
[2020-05-10] MEDS: Tamsulosin HCl 0.4 MG Capsule PO (17:01)
[2020-05-10 19:53] VITALS: TEMP 37.2
[2020-05-10] MEDS: Atorvastatin Calcium 80 MG Tablet PO (20:52)
[2020-05-11 04:00] VITALS: BP 109/71; PULSE 96; RESP 16; TEMP 37.9; O2SAT 94
[2020-05-11] MEDS: levETIRAcetam 1,000 MG Tablet 1000 MG PO ×2 (05:14→17:44)
[2020-05-11] MEDS: Nystatin Powder 15gm Bottle 1 APPLIC TOPICAL ×2 (05:17→20:14)
[2020-05-11] MEDS: Menthol/Lanolin/Calamine/Znox 113 GM Tube 1 APPLIC TOPICAL ×3 (05:17→20:14)
[2020-05-11 05:18] VITALS: TEMP 38.8
--- NOTE | 2020-05-11 05:22 | RAD_ITS ---
STUDY: X-RAY CHEST REASON FOR EXAM: Male, 65 years old. ELEVATED TEMP -- UNABLE TO OBTAIN HISTORY FROM PATIENT, PT HAS HAD A STROKE TECHNIQUE: Single frontal view of the chest. COMPARISON: 03/21/2020 chest x-ray FINDINGS: Interstitial markings are mildly prominent for There is no demonstrated pleural abnormality. Normal size heart. Normal mediastinum and riley. Normal visualized pulmonary arteries. There is atherosclerotic calcification of the aortic arch with tortuosity. Normal visualized thoracic spine. Normal visualized ribs, clavicles, and shoulders. There is no demonstrated abnormality of the visualized soft tissue structures of the upper abdomen. RAD/Chest 1 View (Portable) IMPRESSION: Stable Chest no visualized acute focal infiltrate. Electronically Signed: Eli Jacobs MD at 6:05 EDT Tel , Service support ,
--- NOTE | 2020-05-11 05:23 | RAD_ITS ---
STUDY: X-RAY - ABDOMEN/PELVIS REASON FOR EXAM: Male, 65 years old. ELEVATED TEMP -- UNABLE TO OBTAIN HISTORY FROM PATIENT, PT HAS HAD A STROKE TECHNIQUE: Two AP supine views of the abdomen and pelvis. COMPARISON: None. FINDINGS: Normal visualized lung bases. There is a moderate amount of colonic fecal material. There is no demonstrated free abdominal air. The liver spleen and kidneys are partially obscured. Normal soft tissue structures. Normal visualized osseous structures. There may be contrast within a diverticulum in the descending colon. RAD/Abdomen Single View (Portable) IMPRESSION: Moderate constipation. Electronically Signed: Eli Jacobs MD at 5:56 EDT Tel , Service support ,
--- NOTE | 2020-05-11 05:30 | NURSING ---
Patient noted to be febrile this morning. Patient has a oral temperature of 101.8. BP 109/71 P 96 R 16 O2 94 on Room Air. Lungs noted to be clear in all lobes. Dr. Booker notified of this. New orders given.
[2020-05-11 05:55] LABS: Absolute Lymphocyte Count 1.09 X10^3/uL (0.83-4.51); Absolute Neutrophil Count 17.5 X10^3/uL (2.0-7.7); Basophil# 0.08 X10^3/uL; Basophil% 0.4 % (0-1); Eosinophil# 0.16 X10^3/uL; Eosinophils% 0.8 % (0-5); Hematocrit 44.1 % (40-54); Hemoglobin 13.8 g/dL (13.0-16.5); Lymphocyte # 1.09 X10^3/ul (4.0); Lymphocyte % 5.3 % (19-41); Mean Corp Hgb Conc 31.3 g/dL (32-36); Mean Corpuscular Hgb 29.1 pg (27.0-32.0); Mean Corpuscular Volume 92.8 fL (80-94); Mean Platelet Vol. 10.4 fl (6.2-12.0); Monocyte# 1.48 X10^3/uL; Monocyte% 7.2 % (0-10); NRBC Flagged by Analyzer 0 % (0-5); Neutrophil # 17.47 X10^3/uL (2.7-7.7); Neutrophil % 85.3 % (47-70); Platelet Count 233 K/mm3 (150-450); RBC Distribution Width SD 47.4 fl (35.1-43.9); Red Blood Count 4.75 M/mm3 (4.6-6.2); White Blood Count 20.5 K/mm3 (4.4-11.0)
[2020-05-11 06:09] LABS: Anion Gap 3 (5-15); BUN 22 mg/dL (7-18); BUN/Creat Ratio 16.2 RATIO (10-20); Calcium,Total 9.4 mg/dL (8.5-10.1); Chloride 111 mmol/L (98-107); Creatinine, Serum 1.36 mg/dL (0.70-1.30); EST Glomerular Filtration Rate 56 mL/min (>60); Est Glom Filt Rate - Afr Amer 67 mL/min (>60); Estimated Creatinine Clearance 55.17 ml/min; Glucose 115 mg/dL (74-106); Potassium 3.6 mmol/L (3.5-5.1); Sodium Level 142 mmol/L (136-145)
[2020-05-11 06:42] LABS: Mucous, Urine 0 SEEN /hpf (<or=2+); Squamous Epithelial Cells - UA 0 SEEN /hpf (0-5)
[2020-05-11 06:43] LABS: Color, Urine Yellow (Yellow); Glucose, Dipstick Normal (Normal); Ketone-Dipstick Negative (Negative); Leukocyte Esterase-Dipstick 100 /ul (Negative); Nitrite-Dipstick Positive (Negative); Occult Blood-Urine 250 /ul (Negative); Protein-Dipstick 100 mg/dl (Negative); Specific Gravity, Urine 1.025 (1.002-1.030); Urine Bilirubin Dipstick Negative (Negative); Urine Clarity Sl. Cloudy (Clear); Urine Urobilinogen Normal (Normal)
[2020-05-11 06:49] LABS: Amorphous Sediment 1+; Bacteria 1+ /hpf (None Seen); Red Blood Cells-Urine 10-25 SEEN /hpf (0-5); White Blood Cells 10-25 SEEN /hpf (0-5)
[2020-05-11] MEDS: Aspirin 81 MG TAB.CHEW PO (07:44)
[2020-05-11] MEDS: Ciprofloxacin 500 MG Tablet PO (09:11)
[2020-05-11] MEDS: 0.9% Normal Saline 1,000 ML 75 ML IV ×2 (09:27→23:35)
[2020-05-11 10:00] VITALS: PULSE 104; RESP 16; O2SAT 95
--- NOTE | 2020-05-11 11:28 | NURSING ---
wound photo: bilateral buttocks
--- NOTE | 2020-05-11 13:20 | NURSING ---
Soap suds enema administered per orders, pt tolerated well.
[2020-05-11 14:14] VITALS: BP 159/93; PULSE 94; RESP 16; TEMP 38.4; O2SAT 93
[2020-05-11 14:39] VITALS: BP 110/74; PULSE 95
[2020-05-11] MEDS: Acetaminophen 325 MG Tablet 650 MG PO (16:34)
[2020-05-11 16:35] VITALS: TEMP 38.3
[2020-05-11] MEDS: Ceftriaxone 1 GM/50 ML BAG IV (17:44)
[2020-05-11] MEDS: Lactulose 20 GM/30 ML UDC PO (17:44)
[2020-05-11] MEDS: Tamsulosin HCl 0.4 MG Capsule PO (17:44)
[2020-05-11] MEDS: Atorvastatin Calcium 80 MG Tablet PO (20:15)
[2020-05-12 05:04] VITALS: BP 127/78; PULSE 100; RESP 18; TEMP 37.6; O2SAT 93
[2020-05-12] MEDS: Menthol/Lanolin/Calamine/Znox 113 GM Tube 1 APPLIC TOPICAL ×3 (05:07→20:15)
[2020-05-12] MEDS: Nystatin Powder 15gm Bottle 1 APPLIC TOPICAL ×2 (05:08→20:15)
[2020-05-12] MEDS: Lactulose 20 GM/30 ML UDC PO ×2 (05:09→18:37)
[2020-05-12] MEDS: levETIRAcetam 1,000 MG Tablet 1000 MG PO ×2 (05:09→18:37)
[2020-05-12 06:10] LABS: Anion Gap 5 (5-15); BUN 17 mg/dL (7-18); BUN/Creat Ratio 16.2 RATIO (10-20); Calcium,Total 8.8 mg/dL (8.5-10.1); Chloride 113 mmol/L (98-107); Creatinine, Serum 1.05 mg/dL (0.70-1.30); EST Glomerular Filtration Rate 75 mL/min (>60); Est Glom Filt Rate - Afr Amer 91 mL/min (>60); Estimated Creatinine Clearance 71.46 ml/min; Glucose 123 mg/dL (74-106); Potassium 3.4 mmol/L (3.5-5.1); Sodium Level 141 mmol/L (136-145)
[2020-05-12] MEDS: Aspirin 81 MG TAB.CHEW PO (07:51)
[2020-05-12] MEDS: Ceftriaxone 1 GM/50 ML BAG IV (09:09)
[2020-05-12] MEDS: 0.9% Normal Saline 1,000 ML 75 ML IV (13:34)
--- NOTE | 2020-05-12 13:50 | CASEMGMT ---
Social Work Phone call to pt Significant other Greer to discuss discharge plan. Presented options of extended care facility and home with 24 hour care. S.O. stating at this time she is unable to care for pt by herself as he is a two person assist for toileting and S.O. understanding that pt care needs are currently greater than she can provide alone. SO hopeful pt can continue in TCU and continue to improve. SW discussed with Greer that pt will eventually be discharged from services and decision will need to be made. Discussed Medicaid option for ECF and Greer feels pt finances are greater than the Medicaid eligibility limit. Discussed hiring private duty aids to assist significant other at home and she is aware she will need help and made aware of cost of private duty. Greer wants to discuss finances with her son who assists her with finances and to help make a decision. JANEL Garber
[2020-05-12 14:11] VITALS: BP 141/77; PULSE 95; RESP 20; TEMP 36.4; O2SAT 97
--- NOTE | 2020-05-12 16:35 | CASEMGMT ---
Social Work Son contacted SW. Spoke with son at length. Reexplained Medicare coverage, pt's current level of assist and recommendations for alternative DC plan than home. Discussed SNF and [facility]. Son stated pt would not qualify for [facility]. Discussed pricing at a SNF to pay privately. Son to discuss with siblings and notify SW. Will continue to follow. Arianna Montes, AIR CONDITIONING UNIT ASSEMBLER GIS INSTRUCTOR
[2020-05-12] MEDS: Tamsulosin HCl 0.4 MG Capsule PO (18:37)
[2020-05-12] MEDS: Atorvastatin Calcium 80 MG Tablet PO (20:15)
[2020-05-13] MEDS: 0.9% Normal Saline 1,000 ML 75 ML IV ×2 (02:01→15:21)
[2020-05-13 05:22] VITALS: BP 144/88; PULSE 110; RESP 16; TEMP 37.6; O2SAT 94
[2020-05-13] MEDS: Nystatin Powder 15gm Bottle 1 APPLIC TOPICAL ×2 (05:24→22:37)
[2020-05-13] MEDS: Menthol/Lanolin/Calamine/Znox 113 GM Tube 1 APPLIC TOPICAL ×3 (05:24→22:38)
[2020-05-13] MEDS: Lactulose 20 GM/30 ML UDC PO (05:25)
[2020-05-13] MEDS: levETIRAcetam 1,000 MG Tablet 1000 MG PO ×2 (05:25→22:39)
[2020-05-13] MEDS: Acetaminophen 325 MG Tablet 650 MG PO (05:27)
[2020-05-13 06:42] VITALS: PULSE 95; TEMP 37.1
[2020-05-13] MEDS: Aspirin 81 MG TAB.CHEW PO (08:08)
[2020-05-13 10:00] VITALS: PULSE 93; RESP 16; O2SAT 94
--- NOTE | 2020-05-13 10:38 | CASEMGMT ---
Social Work S.O. contacted SW to finalize DC plans. She would like to DC pt home and is hiring some assistance. She is requesting to DC pt home 05/18. IDT agreeable. Ordered [facility] PT/OT/ST/SN/SUAREZ/SW. No DME needs. W/C transport scheduled through [facility] at 11:30 am. Plan: DC home 05/18, [facility] PT/OT/ST/SN/SUAREZ/SW PRIYA NaiduW
--- NOTE | 2020-05-13 12:14 | ST ---
While eating lunch pt picked up hamburger and began having tremor that intensified and then stopped after roughly 10 seconds. Face turned red. Nursing made aware of incident and also charted in ST daily note.
[2020-05-13 13:52] VITALS: BP 123/84; PULSE 88; RESP 16; TEMP 38.2; O2SAT 97
--- NOTE | 2020-05-13 15:30 | NURSING ---
Notified Dr. Booker of lab results, received order to consult Dr. Laura.
--- NOTE | 2020-05-13 15:51 | NURSING ---
Left message for patient's SO to return call to unit.
--- NOTE | 2020-05-13 17:08 | NURSING ---
Received verbal order from Dr. Booker to send pt to the ER.
--- NOTE | 2020-05-13 17:30 | NURSING ---
Spoke with SO and provided update and patient's current status. SO requested updates later this evening.
--- NOTE | 2020-05-13 19:58 | ECHOD_ITS ---
Reason For Study: MURMUR/ CVA Procedure This was a 2D Doppler, Color Flow transthoracic echocardiogram. The study was technically difficult. Exam performed portable in patient room. Left Ventricle Normal LV size. Left ventricular systolic function is normal. The estimated ejection fraction is 65 %. Diastolic function is indeterminate. No regional wall motion abnormalities noted. Right Ventricle Normal RV size. Normal systolic function. Atria Normal left atrium. Normal right atrium. No doppler evidence for ASD. Bubble contrast study negative for right to left interatrial shunt. Mitral Valve There is no mitral annular calcification. Normal mitral valve. Trivial mitral valve insufficiency. Tricuspid Valve Normal tricuspid valve. Trivial tricuspid valve insufficiency. Right ventricular systolic pressure estimated to be 24 mmHg. Aortic Valve Trisinus/trileaflet aortic valve. Moderate focal aortic valve calcification. Pulmonic Valve The pulmonic valve is not well visualized. Trivial pulmonic valve insufficiency. Great Vessels Normal sized aortic root. Pericardium/Pleural No pericardial effusion. Medication Performed a rapid injection of agitated mix of 9 cc saline and 1cc air to assess for atrial septal defect. MMode/2D Measurements & Calculations LVIDd: 3.9 cm IVSd: 1.1 cm LVOT diam: 2.0 cm LVIDs: 2.4 cm LVPWd: 1.1 cm RVDd: 3.0 cm FS: 38.0 % LVOT area: 3.2 cm2 Ao root diam: 3.4 cm LAV(MOD-bp): 29.6 ml LA A4 area: 12.8 cm2 LAV(MOD-bp) Indexed: 15.0 ml/m2 LAV(MOD-sp2): 30.3 ml LAV(MOD-sp4): 28.4 ml LA dimension(2D): 3.6 cm RA A4 area: 9.9 cm2 Time Measurements MV dec time: 0.20 sec Doppler Measurements & Calculations MV E max anthony: 99.8 cm/sec Lat Peak E' Anthony: 8.6 cm/sec Med Peak E' Anthony: 6.5 cm/sec MV A max anthony: 118.5 cm/sec E/E' lat: 11.5 E/E' med: 15.3 MV E/A: 0.84 Ao V2 max: 136.6 cm/sec LV V1 max: 93.5 cm/sec PA V2 max: 89.6 cm/sec Ao max P.5 mmHg LV V1 max P.5 mmHg LINH(V,D): 2.2 cm2 TR max anthony: 229.2 cm/sec TR max P.2 mmHg Interpretation Summary The study was technically difficult. Left ventricular systolic function is normal. The estimated ejection fraction is 65 %. Trivial mitral valve insufficiency. Trivial tricuspid valve insufficiency. Moderate focal aortic valve calcification. Trivial pulmonic valve insufficiency. Right ventricular systolic pressure estimated to be 24 mmHg. Diastolic function is indeterminate. Ordering Physician: Eliud Laura Referring Physician: NICKI SUGGS Performed By: Anushka June, UZMA, RVT
[2020-05-13 22:25] VITALS: BP 170/95; PULSE 96; RESP 22; TEMP 37; O2SAT 97
--- NOTE | 2020-05-13 22:25 | NURSING ---
Report received from PETE Cabrera from ED, returned per cot to room 11. Pt alert, skin warm and dry, hygiene given.
[2020-05-13] MEDS: Tamsulosin HCl 0.4 MG Capsule PO (22:42)
[2020-05-13] MEDS: Atorvastatin Calcium 80 MG Tablet PO (22:43)
--- NOTE | 2020-05-13 23:04 | NURSING ---
Greer updated on ed visit and new orders. She requested that pt frazier be shaved.
[2020-05-14] MEDS: Lactulose 20 GM/30 ML UDC 200 GM RECTAL (00:08)
--- NOTE | 2020-05-14 00:36 | NURSING ---
Lactulose enema given per order, small to moderate results, soft brown w/flecks of food particles noted. pt unable to hold very long. Also tried to give mag citrate at this time, pt took one drink and then refused to take more at this time, pinches lips together and will not swallow, will attempt again later.
--- NOTE | 2020-05-14 01:18 | PCM.RX.CS ---
Consult Pharmacy has been consulted to manage selected antiobiotic: Vancomycin Type of Consult: New start Suspected Infection: Other Prior Doses of Antibiotics Received/Current Regimen: Medications Vancomycin HCl 1,250 mg/ (Sodium Chloride) 275 mls @ 167 mls/hr IV Q12H [place] Discontinued Medications Vancomycin HCl 2,000 mg/ (Sodium Chloride) 540 mls @ 250 mls/hr IV X1 ONE Stop: 05/13/20 23:09 Last Admin: 05/13/20 22:50 Dose: 200 mls/hr Labs: Sodium 141 mmol/L (136-145) 05/12/20 05:30 Potassium 3.4 mmol/L (3.5-5.1) L 05/12/20 05:30 Chloride 113 mmol/L (98-107) H 05/12/20 05:30 Carbon Dioxide 23.0 mmol/L (21.0-32.0) 05/12/20 05:30 Anion Gap 5 (5-15) 05/12/20 05:30 BUN 17 mg/dL (7-18) 05/12/20 05:30 Creatinine 1.05 mg/dL (0.70-1.30) 05/12/20 05:30 Est GFR (MDRD) Af Amer 91 mL/min (>60) 05/12/20 05:30 Est GFR (MDRD) Non-Af 75 mL/min (>60) 05/12/20 05:30 BUN/Creatinine Ratio 16.2 RATIO (10-20) 05/12/20 05:30 Glucose 123 mg/dL (74-106) H 05/12/20 05:30 Microbiology: Microbiology 05/11/20 05:43 Blood Culture (Wb) - Anticubital Left Blood Culture - Preliminary 05/11/20 05:43 Blood Culture (Wb) - Right Hand Blood Culture - Preliminary No growth in 48 hours. 05/11/20 06:25 Urine Catheter - Catheter Urine Culture - Final Meth. resistant Staph. aureus 05/11/20 05:35 Mucosa - Nasopharyngeal Respiratory Panel (PCR) - Final Weight used for dosin.4 kg Estimated Creatinine Clearance: 71.5 Goal Trough: 15-20 mcg/mL Pharmacy Plan for Drug Dosing: Pharmacy Service will continue to monitor and adjust dosing as required. Follow-Up Labs: Trough Vancomycin Labs to be done on [date and time ordered]: 05/15/20 @1030
[2020-05-14] MEDS: Menthol/Lanolin/Calamine/Znox 113 GM Tube 1 APPLIC TOPICAL ×3 (05:03→21:06)
[2020-05-14] MEDS: Nystatin Powder 15gm Bottle 1 APPLIC TOPICAL ×2 (05:04→21:06)
[2020-05-14] MEDS: Senna/Docusate Sodium 1 Tablet 2 TABLET PO ×2 (05:06→17:50)
[2020-05-14] MEDS: levETIRAcetam 1,000 MG Tablet 1000 MG PO ×2 (05:06→17:50)
[2020-05-14] MEDS: Polyethylene Glycol 3350 17 GM PACKET PO ×2 (05:08→17:51)
[2020-05-14 05:16] VITALS: BP 162/81; PULSE 92; RESP 18; TEMP 36.8; O2SAT 95
[2020-05-14 06:04] LABS: Anion Gap 8 (5-15); BUN 10 mg/dL (7-18); Calcium,Total 8.6 mg/dL (8.5-10.1); Chloride 110 mmol/L (98-107); EST Glomerular Filtration Rate 79 mL/min (>60); Est Glom Filt Rate - Afr Amer 96 mL/min (>60); Estimated Creatinine Clearance 75.03 ml/min; Glucose 107 mg/dL (74-106); Potassium 2.8 mmol/L (3.5-5.1); Sodium Level 142 mmol/L (136-145)
--- NOTE | 2020-05-14 08:35 | CASEMGMT ---
Social Work Patient's discharge is postponed. Cancelled transport and notified [facility]. Will continue to follow. PRIYA Naidu :TONY
[2020-05-14] MEDS: Aspirin 81 MG TAB.CHEW PO (08:42)
--- NOTE | 2020-05-14 09:20 | RAD_ITS ---
STUDY: X-RAY - ABDOMEN/PELVIS REASON FOR EXAM: Male, 65 years old. CONSTIPATION TECHNIQUE: Single AP view of the abdomen / pelvis. COMPARISON: Comparison is made with prior study dated 05/11/2020. FINDINGS: There is gaseous distention of the transverse colon. There is thickened haustral pattern of the mid and distal portion of the transverse colon. Gas is seen in the distal colon. The visualized liver, spleen and kidneys are grossly normal in size and morphology. Normal soft tissue structures. Normal visualized osseous structures. RAD/Abdomen Single View IMPRESSION: Gaseous distention of the transverse colon with a thickened haustral pattern. Follow-up is recommended. Electronically Signed: Vance Ledesma, at 11:13 EDT , Service support ,
[2020-05-14] MEDS: Acetaminophen 325 MG Tablet 650 MG PO (11:27)
[2020-05-14] MEDS: 0.9% Normal Saline 1,000 ML 75 ML IV (13:17)
[2020-05-14 13:40] VITALS: BP 144/68; PULSE 90; RESP 20; TEMP 37.2; O2SAT 96
--- NOTE | 2020-05-14 15:23 | CON.PCM_ITS ---
Problem List (1) MRSA bacteremia Status: Acute Reason for Consult: bacteremia Consulted by: Dr. Booker History of Present Illness: The patient is a 65 year old M in TCU for rehab s/p stroke and seizures. Here for over a month at this point, but 05/11 had fever, worsened mental status. Ucx with MRSA, and Bcx (+) for staph as well. Started on bactrim and doxy. ID consulted, changed to iv vanc evening of 05/13. Doing a little better today per n ursing. No fever since 05/11. ROS unobtainable due to mental status. - Medical History Past Medical History (Chronic Problems): Chronic Problems History of hemorrhagic stroke with residual hemiparesis (Chronic) Mixed aphasia (Chronic) Stroke (Chronic) Right hemiparesis (Chronic) Seizure disorder (Chronic) Hyperlipidemia (Chronic) BPH (benign prostatic hyperplasia) (Chronic) Fatty liver (Chronic) Allergies/Adverse Reactions: Allergies Iodinated Contrast Media [CONTRASTS] Allergy (Verified 03/19/19 14:02) Hives Home Medications: Ambulatory Orders Medication Instructions Recorded Levetiracetam 500 mg PO BID 03/21/20 - Social History SMOKING STATUS:: Former smoker Vital Signs Temp Pulse Resp BP Pulse Ox 99.0 F 90 20 H 144/68 H 96 05/14/20 13:40 05/14/20 13:40 05/14/20 13:40 05/14/20 13:40 05/14/20 13:40 Oxygen Delivery Method Room Air Weight: 80.399 kg Body Mass Index (BMI) 26.5 Finger Stick Blood Glucose 111 Microbiology Past 72 Hours 05/11/20 05:43 Bacteria Detection (PCR) - Final Blood Culture (Wb) - Anticubital Left mecA Resistance Marker Staphylococcus aureus Blood Culture - Preliminary Staphylococcus aureus 05/11/20 05:43 Blood Culture - Preliminary Blood Culture (Wb) - Right Hand No growth in 48 hours. 05/11/20 06:25 Urine Culture - Final Urine Catheter - Catheter Meth. resistant Staph. aureus Laboratory Tests Past 24 Hrs 05/14/20 05:10 Sodium 142 Potassium 2.8 L Chloride 110 H Carbon Dioxide 24.0 Anion Gap 8 BUN 10 Creatinine 1.00 Estim Creat Clear Calc 75.03 Est GFR (MDRD) Af Amer 96 Est GFR (MDRD) Non-Af 79 BUN/Creatinine Ratio 10.0 Glucose 107 H Calcium 8.6 - Other Studies Radiology: [] reviewed Other Studies: [] Route of nutrition/ use of supplements: [] Nutritional Intake: [] IV Site: [] Mcclellan Catheter: [] - Physical Exam General: No apparent distress HEENT: Atraumatic, PERRLA, EOMI Neck: Supple, No Nodes Lungs: Clear to auscultation, Normal air movement Cardiovascular: Regular rate, Regular Rhythm, Murmur Abdomen: Soft, Non Tender, Non-Distended Extremities: No edema Skin: No rashes IV Site: Peripheral, without redness Musculoskeletal: No Tenderness to Palpation of Joints or Extremities Neurological: - - R sided weakness, non verbal - Assessment/Plan Antibiotics: [] Assessment/Plan: [] Active and Suspected Problems Debility (Acute) Encephalopathy (Acute) Dysphagia (Acute) Urinary incontinence (Acute) Hospital-acquired pneumonia (Acute) sepsis due to MRSA bacteremia - unclear source. (+) ucx may represent hematogenous spread. Bcx yesterday was not done, will ask nurses to draw. Ordered echo. Changed doxy and bactrim to iv vanc. Vanc trough tomorrow. Will follow, thank you.
[2020-05-14] MEDS: Tamsulosin HCl 0.4 MG Capsule PO (17:50)
[2020-05-14] MEDS: Atorvastatin Calcium 80 MG Tablet PO (20:55)
[2020-05-14] MEDS: 0.9% Saline Lock 10 ML Syringe IV (22:04)
[2020-05-15 04:00] VITALS: BP 144/84; PULSE 80; RESP 14; TEMP 36.6; O2SAT 95
[2020-05-15] MEDS: 0.9% Normal Saline 1,000 ML 75 ML IV ×2 (04:22→20:39)
[2020-05-15] MEDS: Nystatin Powder 15gm Bottle 1 APPLIC TOPICAL ×2 (04:42→20:51)
[2020-05-15] MEDS: Menthol/Lanolin/Calamine/Znox 113 GM Tube 1 APPLIC TOPICAL ×3 (04:42→20:51)
[2020-05-15] MEDS: Senna/Docusate Sodium 1 Tablet 2 TABLET PO (04:43)
[2020-05-15] MEDS: Polyethylene Glycol 3350 17 GM PACKET PO (04:43)
[2020-05-15] MEDS: levETIRAcetam 1,000 MG Tablet 1000 MG PO ×2 (04:43→17:15)
[2020-05-15] MEDS: Aspirin 81 MG TAB.CHEW PO (09:15)
[2020-05-15 11:09] LABS: Vancomycin, Trough Level 14.2 ug/mL (5.0-15.0)
--- NOTE | 2020-05-15 11:19 | PCM.RX.CS ---
Consult Pharmacy has been consulted to manage selected antiobiotic: Vancomycin Type of Consult: Follow-up Suspected Infection: Bacteremia, Other - UTI Labs: Sodium 142 mmol/L (136-145) 05/14/20 05:10 Potassium 2.8 mmol/L (3.5-5.1) L 05/14/20 05:10 Chloride 110 mmol/L (98-107) H 05/14/20 05:10 Carbon Dioxide 24.0 mmol/L (21.0-32.0) 05/14/20 05:10 Anion Gap 8 (5-15) 05/14/20 05:10 BUN 10 mg/dL (7-18) 05/14/20 05:10 Creatinine 1.00 mg/dL (0.70-1.30) 05/14/20 05:10 Est GFR (MDRD) Af Amer 96 mL/min (>60) 05/14/20 05:10 Est GFR (MDRD) Non-Af 79 mL/min (>60) 05/14/20 05:10 BUN/Creatinine Ratio 10.0 RATIO (10-20) 05/14/20 05:10 Glucose 107 mg/dL (74-106) H 05/14/20 05:10 Vancomycin Trough 14.2 ug/mL (5.0-15.0) 05/15/20 10:30 Microbiology: Microbiology 05/11/20 05:43 Blood Culture (Wb) - Anticubital Left Bacteria Detection (PCR) - Final mecA Resistance Marker Staphylococcus aureus 05/11/20 05:43 Blood Culture (Wb) - Anticubital Left Blood Culture - Preliminary Staphylococcus aureus 05/11/20 05:43 Blood Culture (Wb) - Right Hand Blood Culture - Preliminary No growth in 48 hours. 05/11/20 06:25 Urine Catheter - Catheter Urine Culture - Final Meth. resistant Staph. aureus 05/11/20 05:35 Mucosa - Nasopharyngeal Respiratory Panel (PCR) - Final Estimated Creatinine Clearance: 75 ML/MIN Goal Trough: 15-20 mcg/mL Pharmacy Plan for Drug Dosing: VANCOMYCIN LEVEL RECEIVED Current Vancomycin Dose: 1250MG Q12 Number of Doses Received: 2 (1250MG) AND 1 (2000MG) Vancomycin Level: 14.2 MG/DL Hours Since Last Dose: 12.5 Renal Function: 1 (05/14), CRCL 75ML/MIN Renal Function Trend: STABLE Lab/Micro: BLOOD CX WITH mecA staph and URINE CX WITH MRSA Vancomycin Plan/Comments: CONTINUE SAME REGIMEN. PATIENT IS CLOSE TO GOAL TROUGH OF 15-20 AFTER 2 DOSES OF 1250MG. GET A NEW TROUGH TOMORROW ONCE PATIENT HAS REACHED STEADY STATE. Pharmacy Service will continue to monitor and adjust dosing as required. Labs to be done on [date and time ordered]: 05/16/20 @ 5130
[2020-05-15 15:05] VITALS: BP 141/82; PULSE 68; RESP 14; TEMP 36.7; O2SAT 96
[2020-05-15] MEDS: Tamsulosin HCl 0.4 MG Capsule PO (17:15)
[2020-05-15] MEDS: Atorvastatin Calcium 80 MG Tablet PO (20:53)
[2020-05-16 04:00] VITALS: BP 169/72; PULSE 77; RESP 16; TEMP 36.6; O2SAT 95
[2020-05-16] MEDS: Menthol/Lanolin/Calamine/Znox 113 GM Tube 1 APPLIC TOPICAL ×3 (05:59→20:24)
[2020-05-16] MEDS: Senna/Docusate Sodium 1 Tablet 2 TABLET PO (06:01)
[2020-05-16] MEDS: Polyethylene Glycol 3350 17 GM PACKET PO (06:01)
[2020-05-16] MEDS: levETIRAcetam 1,000 MG Tablet 1000 MG PO ×2 (06:01→17:07)
[2020-05-16] MEDS: Nystatin Powder 15gm Bottle 1 APPLIC TOPICAL ×2 (06:01→20:24)
[2020-05-16] MEDS: Aspirin 81 MG TAB.CHEW PO (07:37)
[2020-05-16 10:41] LABS: Hematocrit 40.5 % (40-54); Hemoglobin 12.8 g/dL (13.0-16.5); Mean Corp Hgb Conc 31.6 g/dL (32-36); Mean Corpuscular Hgb 28.1 pg (27.0-32.0); Mean Platelet Vol. 9.9 fl (6.2-12.0); Platelet Count 253 K/mm3 (150-450); RBC Distribution Width CV 13.8 % (11.6-14.6); RBC Distribution Width SD 44.6 fl (35.1-43.9); Red Blood Count 4.55 M/mm3 (4.6-6.2)
[2020-05-16] MEDS: 0.9% Normal Saline 1,000 ML 75 ML IV (10:45)
[2020-05-16 11:21] LABS: Anion Gap 7 (5-15); BUN 9 mg/dL (7-18); BUN/Creat Ratio 9.7 RATIO (10-20); Calcium,Total 8.5 mg/dL (8.5-10.1); Chloride 109 mmol/L (98-107); Creatinine, Serum 0.93 mg/dL (0.70-1.30); EST Glomerular Filtration Rate 87 mL/min (>60); Est Glom Filt Rate - Afr Amer 105 mL/min (>60); Estimated Creatinine Clearance 80.68 ml/min; Glucose 148 mg/dL (74-106); Potassium 3.1 mmol/L (3.5-5.1); Sodium Level 140 mmol/L (136-145)
[2020-05-16 11:31] LABS: Vancomycin, Trough Level 16.2 ug/mL (5.0-15.0)
--- NOTE | 2020-05-16 11:52 | PCM.RX.CS ---
Consult Pharmacy has been consulted to manage selected antiobiotic: Vancomycin Type of Consult: Follow-up Suspected Infection: Bacteremia, Other - UTI Labs: Sodium 140 mmol/L (136-145) 05/16/20 10:35 Potassium 3.1 mmol/L (3.5-5.1) L 05/16/20 10:35 Chloride 109 mmol/L (98-107) H 05/16/20 10:35 Carbon Dioxide 24.0 mmol/L (21.0-32.0) 05/16/20 10:35 Anion Gap 7 (5-15) 05/16/20 10:35 BUN 9 mg/dL (7-18) 05/16/20 10:35 Creatinine 0.93 mg/dL (0.70-1.30) 05/16/20 10:35 Est GFR (MDRD) Af Amer 105 mL/min (>60) 05/16/20 10:35 Est GFR (MDRD) Non-Af 87 mL/min (>60) 05/16/20 10:35 BUN/Creatinine Ratio 9.7 RATIO (10-20) L 05/16/20 10:35 Glucose 148 mg/dL (74-106) H 05/16/20 10:35 Vancomycin Trough 16.2 ug/mL (5.0-15.0) H 05/16/20 10:35 Microbiology: Microbiology 05/15/20 10:30 Blood Culture (Wb) - Right Hand Blood Culture - Preliminary 05/14/20 14:30 Blood Culture (Wb) - Right Wrist Blood Culture - Preliminary No growth in 48 hours. 05/11/20 05:43 Blood Culture (Wb) - Right Hand Blood Culture - Final No growth in 5 days. 05/11/20 05:43 Blood Culture (Wb) - Anticubital Left Bacteria Detection (PCR) - Final mecA Resistance Marker Staphylococcus aureus 05/11/20 05:43 Blood Culture (Wb) - Anticubital Left Blood Culture - Final Meth. resistant Staph. aureus 05/11/20 06:25 Urine Catheter - Catheter Urine Culture - Final Meth. resistant Staph. aureus 05/11/20 05:35 Mucosa - Nasopharyngeal Respiratory Panel (PCR) - Final Goal Trough: 15-20 mcg/mL Pharmacy Plan for Drug Dosing: VANCOMYCIN LEVEL RECEIVED Current Vancomycin Dose: 1250MG Q12H Number of Doses Received: 4 (1250) AND 1 (2000MG) Vancomycin Level: 16.2 MG/DL Hours Since Last Dose: 12 Renal Function: 0.93 (CRCL 80.7 ML/MIN) Renal Function Trend: STABLE Lab/Micro: MRSA IN BLOOD AND URINE Vancomycin Plan/Comments: VANCOMYCIN WITHIN THERAPEUTIC RANGE. CONTINUE SAME REGIMEN. Pharmacy Service will continue to monitor and adjust dosing as required. Labs to be done on [date and time ordered]: 05/20/20 @ 1065
[2020-05-16 14:04] VITALS: BP 97/62; PULSE 74; RESP 17; TEMP 36.4; O2SAT 98
[2020-05-16] MEDS: Tamsulosin HCl 0.4 MG Capsule PO (17:07)
--- NOTE | 2020-05-16 17:52 | NURSING ---
family called update given
[2020-05-16] MEDS: Atorvastatin Calcium 80 MG Tablet PO (20:26)
[2020-05-17] MEDS: 0.9% Normal Saline 1,000 ML 75 ML IV ×2 (03:45→17:41)
[2020-05-17 03:52] VITALS: BP 156/76; PULSE 67; RESP 15; TEMP 37.1; O2SAT 99
[2020-05-17] MEDS: Menthol/Lanolin/Calamine/Znox 113 GM Tube 1 APPLIC TOPICAL ×3 (05:12→20:29)
[2020-05-17] MEDS: Senna/Docusate Sodium 1 Tablet 2 TABLET PO (05:13)
[2020-05-17] MEDS: Nystatin Powder 15gm Bottle 1 APPLIC TOPICAL ×2 (05:13→20:29)
[2020-05-17] MEDS: Polyethylene Glycol 3350 17 GM PACKET PO (05:13)
[2020-05-17] MEDS: levETIRAcetam 1,000 MG Tablet 1000 MG PO ×2 (05:14→17:36)
[2020-05-17] MEDS: Aspirin 81 MG TAB.CHEW PO (09:17)
[2020-05-17 10:00] VITALS: PULSE 75; RESP 14; O2SAT 93
[2020-05-17 13:18] VITALS: BP 130/85; PULSE 73; RESP 14; TEMP 36.1; O2SAT 97
[2020-05-17] MEDS: Tamsulosin HCl 0.4 MG Capsule PO (17:36)
[2020-05-17] MEDS: Atorvastatin Calcium 80 MG Tablet PO (20:22)
[2020-05-17] MEDS: 0.9% Saline Lock 10 ML Syringe IV (23:09)
[2020-05-18 05:54] LABS: Anion Gap 7 (5-15); BUN 6 mg/dL (7-18); BUN/Creat Ratio 7.2 RATIO (10-20); Chloride 105 mmol/L (98-107); Creatinine, Serum 0.83 mg/dL (0.70-1.30); EST Glomerular Filtration Rate 98 mL/min (>60); Est Glom Filt Rate - Afr Amer 119 mL/min (>60); Estimated Creatinine Clearance 90.39 ml/min; Glucose 98 mg/dL (74-106); Potassium 3.3 mmol/L (3.5-5.1); Sodium Level 137 mmol/L (136-145)
[2020-05-18] MEDS: levETIRAcetam 1,000 MG Tablet 1000 MG PO ×2 (05:59→17:17)
[2020-05-18] MEDS: Polyethylene Glycol 3350 17 GM PACKET PO (05:59)
[2020-05-18] MEDS: Senna/Docusate Sodium 1 Tablet 2 TABLET PO (05:59)
[2020-05-18] MEDS: Nystatin Powder 15gm Bottle 1 APPLIC TOPICAL ×2 (06:02→20:27)
[2020-05-18] MEDS: Menthol/Lanolin/Calamine/Znox 113 GM Tube 1 APPLIC TOPICAL ×3 (06:03→20:18)
[2020-05-18 06:08] VITALS: BP 127/89; PULSE 75; RESP 18; TEMP 36.2; O2SAT 95
[2020-05-18] MEDS: Aspirin 81 MG TAB.CHEW PO (07:50)
--- NOTE | 2020-05-18 10:05 | PCM.PN.ID ---
Patient Problems: Active and Suspected Problems Debility (Acute) Encephalopathy (Acute) Dysphagia (Acute) Urinary incontinence (Acute) Hospital-acquired pneumonia (Acute) MRSA bacteremia (Acute) Subjective: No fever, no new joint pain or back pain. Denies any hardware in his body. No n/v/d on iv abx. - Physical Exam Vitals/I&O's: Vital Signs Temp Pulse Resp BP Pulse Ox 97.2 F L 75 18 127/89 H 95 05/18/20 06:08 05/18/20 06:08 05/18/20 06:08 05/18/20 06:08 05/18/20 06:08 Oxygen Delivery Method Room Air Weight: 80.399 kg Body Mass Index (BMI) 26.5 Finger Stick Blood Glucose 111 Intake and Output for Last 24 Hours 05/16/20 05/17/20 05/18/20 23:59 23:59 23:59 Intake Total 1747.5 / 1747.5 7974.5 / 7974.5 395 / 395 Balance 1747.5 / 1747.5 7974.5 / 7974.5 395 / 395 General: Alert, Cooperative, No apparent distress Lungs: Clear to auscultation, Normal air movement Cardiovascular: Regular rate, Regular Rhythm Abdomen: Soft, Non Tender, Non-Distended Extremities: No edema Skin: No rashes Musculoskeletal: No Tenderness to Palpation of Joints or Extremities Microbiology Past 72 Hours 05/16/20 13:30 Sputum, Expectorated/Coughed Gram Stain - Final 05/16/20 13:30 Sputum, Expectorated/Coughed Respiratory Culture - Final 05/15/20 10:30 Blood Culture (Wb) - Right Hand Blood Culture - Preliminary Staphylococcus aureus 05/14/20 14:30 Blood Culture (Wb) - Right Wrist Blood Culture - Preliminary 05/11/20 05:43 Blood Culture (Wb) - Right Hand Blood Culture - Final No growth in 5 days. 05/11/20 05:43 Blood Culture (Wb) - Anticubital Left Bacteria Detection (PCR) - Final mecA Resistance Marker Staphylococcus aureus 05/11/20 05:43 Blood Culture (Wb) - Anticubital Left Blood Culture - Final Meth. resistant Staph. aureus Laboratory Results 05/18/20 05:10: Sodium 137, Potassium 3.3 L, Chloride 105, Carbon Dioxide 25.0, Anion Gap 7, BUN 6 L, Creatinine 0.83, Estim Creat Clear Calc 90.39, Est GFR (MDRD) Af Amer 119, Est GFR (MDRD) Non-Af 98, BUN/Creatinine Ratio 7.2 L, Glucose 98, Calcium 8.0 L Current Medications Acetaminophen (Tylenol) 650 mg PO Q4H PRN PRN PRN Reason: Pain Score 1-07/17 Last Admin: 05/14/20 11:27 Dose: 650 mg Documented by: Aspirin (Aspirin, Baby) 81 mg PO DAILY@0800 [facility] Last Admin: 05/18/20 07:50 Dose: 81 mg Documented by: Atorvastatin Calcium (Lipitor) 80 mg PO QHS [facility] Last Admin: 05/17/20 20:22 Dose: 80 mg Documented by: Bacitracin (Bacitracin Ointment) 1 applic TOPICAL BID PRN PRN; Protocol PRN Reason: redness Calamine/Phenol (Calmoseptine Ointment) 1 applic TOPICAL TID [facility]; Protocol Last Admin: 05/18/20 06:03 Dose: 1 applicatio Documented by: Sodium Chloride () 1,000 mls @ 75 mls/hr IV .[id number] [facility] Last Admin: 05/17/20 17:41 Dose: 75 mls/hr Documented by: Vancomycin IV Pharmacy to Dose (1 ea/ Sodium Chloride) 500 mls @ 250 mls/hr IV PRN PRN; Protocol PRN Reason: Rx to Dose Vancomycin HCl 1,250 mg/ (Sodium Chloride) 275 mls @ 167 mls/hr IV Q12H [facility] Last Infusion: 05/18/20 01:10 Dose: Infused Documented by: Levetiracetam (Keppra Tablet) 1,000 mg PO BID [facility] Last Admin: 05/18/20 05:59 Dose: 1,000 mg Documented by: Lorazepam (Ativan) 0.5 mg PO Q6H PRN PRN PRN Reason: Agitation/Restlessness Nystatin (Mycostatin Powder) 1 applic TOPICAL 0600,2200 [facility]; Protocol Last Admin: 05/18/20 06:02 Dose: 1 applicatio Documented by: Polyethylene Glycol (Miralax) 17 gm PO BID [facility] Last Admin: 05/18/20 05:59 Dose: 17 gm Documented by: Potassium [facility] ([facility]) [facility] Senna/Docusate Sodium (Senokot-S, Amisha-Colace) 2 tablet PO BID [facility] Last Admin: 05/18/20 05:59 Dose: 2 tablet Documented by: Sodium Chloride () 10 - 40 ml IV UD PRN PRN Reason: SALINE FLUSH Last Admin: 05/17/20 23:09 Dose: 20 ml Documented by: Tamsulosin HCl (Flomax) 0.4 mg PO DAILY@1730 [facility] Last Admin: 05/17/20 17:36 Dose: 0.4 mg Documented by: Medical Necessity - Tobacco Use Smoking Status: Former smoker Tobacco Use: Non-smoker Route of nutrition/ use of supplements: [] Nutritional Intake: [] IV Site: [] Mcclellan Catheter: [] - Assessment/Plan Antibiotics: [] Assessment/Plan: [] Active and Suspected Problems Debility (Acute) Encephalopathy (Acute) Dysphagia (Acute) Urinary incontinence (Acute) Hospital-acquired pneumonia (Acute) sepsis due to MRSA bacteremia - unclear source. (+) ucx may represent hematogenous spread. On vanc, following repeat bcx they have cleared. TTE with no veg. Feeling ok. Will follow
[2020-05-18] MEDS: 0.9% Normal Saline 1,000 ML 75 ML IV ×2 (11:27→22:03)
[2020-05-18 14:48] VITALS: BP 115/83; PULSE 76; RESP 18; TEMP 36.3; O2SAT 96
[2020-05-18] MEDS: 0.9% Saline Lock 10 ML Syringe IV ×2 (15:14→21:59)
--- NOTE | 2020-05-18 15:55 | NURSING ---
Significant other, Greer, called for daily update.
--- NOTE | 2020-05-18 16:01 | NURSING ---
Addendum entered by Dot Hamilton 05/18/20 16:27: Dr Laura calls back. With resident have bacteremia, he would like us to hold off on placing a PICC line at this time. He would like to see what happens in the next day or 2 and if he has improved, he will reconsider. If unable to obtain any IV access, then may have to have a PICC line under those circumstances. Original Note: Resident on IV Vancomycin. Has had [address] Laura paged to see about a PICC line insertion.
[2020-05-18] MEDS: Tamsulosin HCl 0.4 MG Capsule PO (17:17)
[2020-05-18] MEDS: Atorvastatin Calcium 80 MG Tablet PO (20:27)
[2020-05-19 05:32] VITALS: BP 126/81; PULSE 64; RESP 16; TEMP 36.2; O2SAT 94
[2020-05-19] MEDS: levETIRAcetam 1,000 MG Tablet 1000 MG PO ×2 (05:37→17:25)
[2020-05-19] MEDS: Menthol/Lanolin/Calamine/Znox 113 GM Tube 1 APPLIC TOPICAL ×3 (05:38→20:38)
[2020-05-19] MEDS: Nystatin Powder 15gm Bottle 1 APPLIC TOPICAL ×2 (05:38→20:37)
[2020-05-19] MEDS: Aspirin 81 MG TAB.CHEW PO (08:11)
[2020-05-19 09:58] VITALS: RESP 16
[2020-05-19 13:59] VITALS: BP 121/77; PULSE 73; RESP 18; TEMP 36.4; O2SAT 96
[2020-05-19] MEDS: 0.9% Normal Saline 1,000 ML 75 ML IV (15:48)
[2020-05-19] MEDS: Tamsulosin HCl 0.4 MG Capsule PO (17:25)
[2020-05-19] MEDS: Atorvastatin Calcium 80 MG Tablet PO (20:37)
[2020-05-20] MEDS: Polyethylene Glycol 3350 17 GM PACKET PO ×2 (05:24→17:11)
[2020-05-20] MEDS: Senna/Docusate Sodium 1 Tablet 2 TABLET PO (05:25)
[2020-05-20] MEDS: levETIRAcetam 1,000 MG Tablet 1000 MG PO ×2 (05:25→17:10)
[2020-05-20] MEDS: Menthol/Lanolin/Calamine/Znox 113 GM Tube 1 APPLIC TOPICAL ×3 (05:25→20:00)
[2020-05-20] MEDS: Nystatin Powder 15gm Bottle 1 APPLIC TOPICAL ×2 (05:25→20:00)
[2020-05-20 05:35] VITALS: BP 136/90; PULSE 75; RESP 16; TEMP 36; O2SAT 94
[2020-05-20 06:20] LABS: Anion Gap 5 (5-15); BUN 6 mg/dL (7-18); BUN/Creat Ratio 6.4 RATIO (10-20); Calcium,Total 8.3 mg/dL (8.5-10.1); Chloride 106 mmol/L (98-107); Creatinine, Serum 0.94 mg/dL (0.70-1.30); EST Glomerular Filtration Rate 86 mL/min (>60); Est Glom Filt Rate - Afr Amer 104 mL/min (>60); Estimated Creatinine Clearance 79.82 ml/min; Glucose 91 mg/dL (74-106); Sodium Level 138 mmol/L (136-145)
[2020-05-20] MEDS: Aspirin 81 MG TAB.CHEW PO (07:23)
[2020-05-20] MEDS: 0.9% Normal Saline 1,000 ML 75 ML IV (07:27)
--- NOTE | 2020-05-20 10:35 | PN.ID_ITS ---
Patient Problems: Active and Suspected Problems Debility (Acute) Encephalopathy (Acute) Dysphagia (Acute) Urinary incontinence (Acute) Hospital-acquired pneumonia (Acute) MRSA bacteremia (Acute) Subjective: Feeling ok, no fever, no pain - Physical Exam Vitals/I&O's: Vital Signs Temp Pulse Resp BP Pulse Ox 96.8 F L 75 16 136/90 H 94 05/20/20 05:35 05/20/20 05:35 05/20/20 05:35 05/20/20 05:35 05/20/20 05:35 Oxygen Delivery Method Room Air Weight: 80.938 kg Body Mass Index (BMI) 26.5 Finger Stick Blood Glucose 111 Intake and Output for Last 24 Hours 05/18/20 05/19/20 05/20/20 23:59 23:59 23:59 Intake Total 2980 / 2980 1755 / 1755 1395 / 1395 Balance 2980 / 2980 1755 / 1755 1395 / 1395 General: Alert, Cooperative, No apparent distress Lungs: Clear to auscultation, Normal air movement Cardiovascular: Regular rate, Regular Rhythm Abdomen: Soft, Non Tender, Non-Distended Skin: No rashes Microbiology Past 72 Hours 05/18/20 10:00 Blood Culture (Wb) - Left Hand Blood Culture - Preliminary No growth in 48 hours. 05/14/20 14:30 Blood Culture (Wb) - Right Wrist Blood Culture - Final Staphylococcus aureus 05/17/20 08:28 Blood Culture (Wb) - Left Hand Blood Culture - Preliminary No growth in 48 hours. 05/16/20 13:30 Sputum, Expectorated/Coughed Gram Stain - Final 05/16/20 13:30 Sputum, Expectorated/Coughed Respiratory Culture - Final 05/15/20 10:30 Blood Culture (Wb) - Right Hand Blood Culture - Preliminary Staphylococcus aureus Laboratory Results 05/20/20 05:25: Sodium 138, Potassium 4.0, Chloride 106, Carbon Dioxide 27.0, Anion Gap 5, BUN 6 L, Creatinine 0.94, Estim Creat Clear Calc 79.82, Est GFR (MDRD) Af Amer 104, Est GFR (MDRD) Non-Af 86, BUN/Creatinine Ratio 6.4 L, Glucose 91, Calcium 8.3 L Current Medications Acetaminophen (Tylenol) 650 mg PO Q4H PRN PRN PRN Reason: Pain Score 1-10/10 Last Admin: 05/14/20 11:27 Dose: 650 mg Documented by: Aspirin (Aspirin, Baby) 81 mg PO DAILY@0800 [facility] Last Admin: 05/20/20 07:23 Dose: 81 mg Documented by: Atorvastatin Calcium (Lipitor) 80 mg PO QHS [facility] Last Admin: 05/19/20 20:37 Dose: 80 mg Documented by: Bacitracin (Bacitracin Ointment) 1 applic TOPICAL BID PRN PRN; Protocol PRN Reason: redness Calamine/Phenol (Calmoseptine Ointment) 1 applic TOPICAL TID [facility]; Protocol Last Admin: 05/20/20 05:25 Dose: 1 applicatio Documented by: Sodium Chloride () 1,000 mls @ 75 mls/hr IV .[id number] [facility] Last Admin: 05/20/20 07:27 Dose: 75 mls/hr Documented by: Lactobacillus Acidophilus (Acidophilus) 1 tablet PO BID [facility] Last Admin: 05/20/20 05:25 Dose: 1 tablet Documented by: Levetiracetam (Keppra Tablet) 1,000 mg PO BID [facility] Last Admin: 05/20/20 05:25 Dose: 1,000 mg Documented by: Linezolid (Zyvox) 600 mg PO BID [facility] Lorazepam (Ativan) 0.5 mg PO Q6H PRN PRN PRN Reason: Agitation/Restlessness Nystatin (Mycostatin Powder) 1 applic TOPICAL 0600,2200 [facility]; Protocol Last Admin: 05/20/20 05:25 Dose: 1 applicatio Documented by: Polyethylene Glycol (Miralax) 17 gm PO BID [facility] Last Admin: 05/20/20 05:24 Dose: 17 gm Documented by: [facility] Last Admin: 05/20/20 07:23 Dose: 40 meq Documented by: Senna/Docusate Sodium (Senokot-S, Amisha-Colace) 2 tablet PO BID [facility] Last Admin: 05/20/20 05:25 Dose: 2 tablet Documented by: Sodium Chloride () 10 - 40 ml IV UD PRN PRN Reason: SALINE FLUSH Last Admin: 05/18/20 21:59 Dose: 10 ml Documented by: Tamsulosin HCl (Flomax) 0.4 mg PO DAILY@1730 [facility] Last Admin: 05/19/20 17:25 Dose: 0.4 mg Documented by: Medical Necessity - Tobacco Use Smoking Status: Former smoker Tobacco Use: Non-smoker Route of nutrition/ use of supplements: [] Nutritional Intake: [] IV Site: [] Mcclellan Catheter: [] - Assessment/Plan Antibiotics: [] Assessment/Plan: [] Active and Suspected Problems Debility (Acute) Encephalopathy (Acute) Dysphagia (Acute) Urinary incontinence (Acute) Hospital-acquired pneumonia (Acute) sepsis due to MRSA bacteremia - unclear source. (+) ucx may represent hematogenous spread. On vanc, bcx cleared rapidly, neg since 05/17. TTE with no veg. Feeling ok. Will change to po linezolid for 2 more weeks of abx. Will follow
[2020-05-20] MEDS: Linezolid 600 MG Tablet PO ×2 (10:48→17:10)
[2020-05-20 13:57] VITALS: BP 106/77; PULSE 71; RESP 17; TEMP 36.4; O2SAT 94
[2020-05-20] MEDS: Tamsulosin HCl 0.4 MG Capsule PO (17:10)
[2020-05-20] MEDS: Atorvastatin Calcium 80 MG Tablet PO (20:00)
[2020-05-21] MEDS: Linezolid 600 MG Tablet PO ×2 (05:25→17:45)
[2020-05-21] MEDS: levETIRAcetam 1,000 MG Tablet 1000 MG PO ×2 (05:26→17:45)
[2020-05-21] MEDS: Nystatin Powder 15gm Bottle 1 APPLIC TOPICAL ×2 (05:26→20:36)
[2020-05-21] MEDS: Menthol/Lanolin/Calamine/Znox 113 GM Tube 1 APPLIC TOPICAL ×3 (05:26→20:36)
[2020-05-21 05:31] VITALS: BP 110/70; PULSE 62; RESP 16; TEMP 37.1; O2SAT 94
[2020-05-21] MEDS: Aspirin 81 MG TAB.CHEW PO (07:52)
[2020-05-21 09:00] VITALS: PULSE 53; RESP 14; O2SAT 97
[2020-05-21 13:33] VITALS: BP 111/75; PULSE 92; RESP 18; TEMP 36.3; O2SAT 96
[2020-05-21] MEDS: Tamsulosin HCl 0.4 MG Capsule PO (17:45)
[2020-05-21] MEDS: Atorvastatin Calcium 80 MG Tablet PO (20:38)
[2020-05-22 04:34] VITALS: BP 101/64; PULSE 67; RESP 16; TEMP 36.4; O2SAT 98
[2020-05-22] MEDS: Menthol/Lanolin/Calamine/Znox 113 GM Tube 1 APPLIC TOPICAL ×3 (04:36→20:20)
[2020-05-22] MEDS: Nystatin Powder 15gm Bottle 1 APPLIC TOPICAL ×2 (04:37→20:19)
[2020-05-22] MEDS: Linezolid 600 MG Tablet PO ×2 (04:37→17:53)
[2020-05-22] MEDS: levETIRAcetam 1,000 MG Tablet 1000 MG PO ×2 (04:37→17:53)
[2020-05-22] MEDS: Aspirin 81 MG TAB.CHEW PO (08:32)
[2020-05-22 14:05] VITALS: BP 129/70; PULSE 83; RESP 16; TEMP 36.2; O2SAT 98
[2020-05-22] MEDS: Tamsulosin HCl 0.4 MG Capsule PO (17:53)
[2020-05-22] MEDS: Polyethylene Glycol 3350 17 GM PACKET PO (17:54)
[2020-05-22] MEDS: Senna/Docusate Sodium 1 Tablet 2 TABLET PO (17:54)
[2020-05-22] MEDS: Atorvastatin Calcium 80 MG Tablet PO (20:19)
[2020-05-23 06:18] VITALS: BP 105/75; PULSE 74; RESP 16; TEMP 36.6; O2SAT 95
[2020-05-23] MEDS: Senna/Docusate Sodium 1 Tablet 2 TABLET PO ×2 (06:22→18:06)
[2020-05-23] MEDS: Linezolid 600 MG Tablet PO ×2 (06:22→18:06)
[2020-05-23] MEDS: Polyethylene Glycol 3350 17 GM PACKET PO ×2 (06:22→18:05)
[2020-05-23] MEDS: levETIRAcetam 1,000 MG Tablet 1000 MG PO ×2 (06:22→18:05)
[2020-05-23] MEDS: Nystatin Powder 15gm Bottle 1 APPLIC TOPICAL ×2 (06:28→20:14)
[2020-05-23] MEDS: Menthol/Lanolin/Calamine/Znox 113 GM Tube 1 APPLIC TOPICAL ×3 (06:29→20:14)
[2020-05-23 06:33] LABS: Absolute Lymphocyte Count 1.72 X10^3/uL (0.83-4.51); Absolute Neutrophil Count 7.3 X10^3/uL (2.0-7.7); Basophil# 0.12 X10^3/uL; Basophil% 1.1 % (0-1); Eosinophil# 0.61 X10^3/uL; Eosinophils% 5.8 % (0-5); Hematocrit 42.4 % (40-54); Lymphocyte # 1.72 X10^3/ul (4.0); Lymphocyte % 16.4 % (19-41); Mean Corp Hgb Conc 30.7 g/dL (32-36); Mean Corpuscular Hgb 27.9 pg (27.0-32.0); Mean Platelet Vol. 10.4 fl (6.2-12.0); Monocyte% 5.7 % (0-10); NRBC Flagged by Analyzer 0 % (0-5); Neutrophil # 7.28 X10^3/uL (2.7-7.7); Neutrophil % 69.6 % (47-70); Platelet Count 346 K/mm3 (150-450); RBC Distribution Width CV 13.9 % (11.6-14.6); RBC Distribution Width SD 46.1 fl (35.1-43.9); Red Blood Count 4.66 M/mm3 (4.6-6.2); White Blood Count 10.5 K/mm3 (4.4-11.0)
[2020-05-23 06:59] LABS: Anion Gap 7 (5-15); BUN 11 mg/dL (7-18); BUN/Creat Ratio 9.7 RATIO (10-20); Calcium,Total 8.7 mg/dL (8.5-10.1); Chloride 106 mmol/L (98-107); Creatinine, Serum 1.13 mg/dL (0.70-1.30); EST Glomerular Filtration Rate 69 mL/min (>60); Est Glom Filt Rate - Afr Amer 84 mL/min (>60); Glucose 95 mg/dL (74-106); Potassium 4.1 mmol/L (3.5-5.1); Sodium Level 137 mmol/L (136-145)
[2020-05-23] MEDS: Aspirin 81 MG TAB.CHEW PO (08:15)
--- NOTE | 2020-05-23 09:41 | NURSING ---
This nurse shaved pt today leaving only mustache per family request, and trimmed finger nails, pt tolerated well, skin integrity maintained at this time
[2020-05-23 13:34] VITALS: BP 102/74; PULSE 83; RESP 15; TEMP 36.4; O2SAT 96
[2020-05-23] MEDS: Tamsulosin HCl 0.4 MG Capsule PO (18:05)
[2020-05-23] MEDS: Atorvastatin Calcium 80 MG Tablet PO (20:09)
[2020-05-24 04:00] VITALS: BP 122/80; PULSE 76; RESP 18; TEMP 36.6; O2SAT 96
[2020-05-24] MEDS: Linezolid 600 MG Tablet PO ×2 (06:42→17:04)
[2020-05-24] MEDS: levETIRAcetam 1,000 MG Tablet 1000 MG PO ×2 (06:42→17:04)
[2020-05-24] MEDS: Senna/Docusate Sodium 1 Tablet 2 TABLET PO (06:42)
[2020-05-24] MEDS: Menthol/Lanolin/Calamine/Znox 113 GM Tube 1 APPLIC TOPICAL ×3 (06:46→19:45)
[2020-05-24] MEDS: Nystatin Powder 15gm Bottle 1 APPLIC TOPICAL ×2 (06:46→19:45)
[2020-05-24] MEDS: Aspirin 81 MG TAB.CHEW PO (08:06)
[2020-05-24] MEDS: Acetaminophen 325 MG Tablet 650 MG PO (08:07)
[2020-05-24 12:50] VITALS: PULSE 68; RESP 18; O2SAT 96
[2020-05-24 13:34] VITALS: BP 114/72; PULSE 68; RESP 16; TEMP 35.9; O2SAT 96
--- NOTE | 2020-05-24 14:35 | CASEMGMT ---
Social Work Spoke with Jorge Butterfield to discuss DC date 06/02 and recommending SNF. Rafia.Domenico. still wants to take pt home. Explained that is not the recommendation as pt has declined since family training, and is at new baseline. Explained pt is mod-total assist for ADLs, mod-max x2 for sit to stands. She stated she has an aide hired to assist at home. Again encouraged SNF due to level of assist needed. She will talk with son and son to likely contact SW. Will continue to follow. Arianna Montes, MANAGEMENT COORDINATOR DREDGE MASTER
--- NOTE | 2020-05-24 14:45 | PCM.PN.ID ---
Patient Problems: Active and Suspected Problems Debility (Acute) Encephalopathy (Acute) Dysphagia (Acute) Urinary incontinence (Acute) Hospital-acquired pneumonia (Acute) MRSA bacteremia (Acute) Subjective: Sleeping, no fever - Physical Exam Vitals/I&O's: Vital Signs Temp Pulse Resp BP Pulse Ox 96.6 F L 68 16 114/72 96 05/24/20 13:34 05/24/20 13:34 05/24/20 13:34 05/24/20 13:34 05/24/20 13:34 Oxygen Delivery Method Room Air Weight: 78.613 kg Body Mass Index (BMI) 26.5 Finger Stick Blood Glucose 111 Intake and Output for Last 24 Hours 05/22/20 05/23/20 05/24/20 23:59 23:59 23:59 Intake Total 420 / 420 480 / 480 360 / 360 Balance 420 / 420 480 / 480 360 / 360 General: No apparent distress Lungs: Clear to auscultation, Normal air movement Cardiovascular: Regular rate, Regular Rhythm Abdomen: Soft, Non Tender, Non-Distended Skin: No rashes Microbiology Past 72 Hours 05/18/20 10:00 Blood Culture (Wb) - Left Hand Blood Culture - Final No growth in 5 days. 05/17/20 08:28 Blood Culture (Wb) - Left Hand Blood Culture - Final No growth in 5 days. Current Medications Acetaminophen (Tylenol) 650 mg PO Q4H PRN PRN PRN Reason: Pain Score 1-10/10 Last Admin: 05/24/20 08:07 Dose: 650 mg Documented by: Aspirin (Aspirin, Baby) 81 mg PO DAILY@0800 [facility] Last Admin: 05/24/20 08:06 Dose: 81 mg Documented by: Atorvastatin Calcium (Lipitor) 80 mg PO QHS [facility] Last Admin: 05/23/20 20:09 Dose: 80 mg Documented by: Bacitracin (Bacitracin Ointment) 1 applic TOPICAL BID PRN PRN; Protocol PRN Reason: redness Calamine/Phenol (Calmoseptine Ointment) 1 applic TOPICAL TID [facility]; Protocol Last Admin: 05/24/20 13:19 Dose: 1 applicatio Documented by: Lactobacillus Acidophilus (Acidophilus) 1 tablet PO BID [facility] Last Admin: 05/24/20 06:42 Dose: 1 tablet Documented by: Levetiracetam (Keppra Tablet) 1,000 mg PO BID [facility] Last Admin: 05/24/20 06:42 Dose: 1,000 mg Documented by: Linezolid (Zyvox) 600 mg PO BID [facility] Last Admin: 05/24/20 06:42 Dose: 600 mg Documented by: Lorazepam (Ativan) 0.5 mg PO Q6H PRN PRN PRN Reason: Agitation/Restlessness Nystatin (Mycostatin Powder) 1 applic TOPICAL 0600,2200 [facility]; Protocol Last Admin: 05/24/20 06:46 Dose: 1 applicatio Documented by: Polyethylene Glycol (Miralax) 17 gm PO BID [facility] Last Admin: 05/24/20 06:43 Dose: Not Given Documented by: [facility] Last Admin: 05/24/20 08:06 Dose: 40 meq Documented by: Senna/Docusate Sodium (Senokot-S, Amisha-Colace) 2 tablet PO BID [facility] Last Admin: 05/24/20 06:42 Dose: 2 tablet Documented by: Sodium Chloride () 10 - 40 ml IV UD PRN PRN Reason: SALINE FLUSH Last Admin: 05/18/20 21:59 Dose: 10 ml Documented by: Tamsulosin HCl (Flomax) 0.4 mg PO DAILY@1730 [facility] Last Admin: 05/23/20 18:05 Dose: 0.4 mg Documented by: Medical Necessity - Tobacco Use Smoking Status: Former smoker Tobacco Use: Non-smoker Route of nutrition/ use of supplements: [] Nutritional Intake: [] IV Site: [] Mcclellan Catheter: [] - Assessment/Plan Antibiotics: [] Assessment/Plan: [] Active and Suspected Problems Debility (Acute) Encephalopathy (Acute) Dysphagia (Acute) Urinary incontinence (Acute) Hospital-acquired pneumonia (Acute) sepsis due to MRSA bacteremia - unclear source. (+) ucx may represent hematogenous spread. On vanc, bcx cleared rapidly, neg since 05/17. TTE with no veg. On po linezolid for 1 more week of abx, stop date 05/31/20. Will follow as needed, please call with any new issues
--- NOTE | 2020-05-24 15:39 | NURSING ---
called made to give up date. no answer left message.
[2020-05-24] MEDS: Tamsulosin HCl 0.4 MG Capsule PO (17:05)
[2020-05-24] MEDS: Atorvastatin Calcium 80 MG Tablet PO (19:43)
--- NOTE | 2020-05-24 21:44 | DCINST_ITS ---
- Discharge Diagnoses Current Active Problems: Current Active and Chronic Problems Debility (Acute) Encephalopathy (Acute) Mixed aphasia (Chronic) Dysphagia (Acute) Urinary incontinence (Acute) Hospital-acquired pneumonia (Acute) Stroke (Chronic) Right hemiparesis (Chronic) Seizure disorder (Chronic) Hyperlipidemia (Chronic) BPH (benign prostatic hyperplasia) (Chronic) Fatty liver (Chronic) MRSA bacteremia (Acute) You will use the following diet at home:: No restrictions, Other - Heart Healthy Your food should be the consistency of: Regular Your liquids should be the consistency of: Regular/Thin Discharge Activity: Return to Normal Activity, May Shower, Use Walker Weight Bearing Status: Weight bearing as tolerated Call your doctor if you observe: Fever of 101 or Higher, Inability to urinate, Inability to have a bowel movement, Shortness of breath, Chest pain, Uncontrolled pain Allergies/Adverse Reactions: Allergies Iodinated Contrast Media [CONTRASTS] Allergy (Verified 03/19/19 14:02) Hives Medications to take at Discharge Acetaminophen [Tylenol Tablet] 650 mg PO Q4H PRN PRN tablet 05/24/20 Aspirin [Aspirin, Baby] 81 mg PO DAILY@0800 tab.chew 05/24/20 Atorvastatin Calcium [Lipitor] 80 mg PO QHS tablet 05/24/20 Bacitracin Ointment 1 applic TOPICAL BID PRN PRN tube 05/24/20 Menthol/Lanolin/Calamine/Znox [Calmoseptine Ointment] 1 applic TOPICAL TID tube 05/24/20 Nystatin Powder [Mycostatin Powder] 1 applic TOPICAL 0600,2200 bottle 05/24/20 Polyethylene Glycol 3350 [Miralax] 17 gm PO BID packet 05/24/20 Potassium Chloride [K-Dur] 40 meq PO BIDCM tablet 05/24/20 Senna/Docusate Sodium [Senokot-S] 2 tablet PO BID tablet 05/24/20 Tamsulosin HCl [Flomax] 0.4 mg PO DAILY@1730 capsule 05/24/20 levETIRAcetam tablet [Keppra tablet] 1,000 mg PO BID tablet 05/24/20 Please follow up with your Primary Care Physician in: 1 week. Test Results: Test results from this visit will be discussed in further detail at your follow- up appointment, if applicable. Proposed Discharge Date: 06/02/20
--- NOTE | 2020-05-24 21:46 | DS.PCM_ITS ---
Discharge Date and Diagnosis - Problem List Patient Problems: Active and Suspected Problems Debility (Acute) Encephalopathy (Acute) Dysphagia (Acute) Urinary incontinence (Acute) Hospital-acquired pneumonia (Acute) MRSA bacteremia (Acute) Date of Admission: 04/06/20 Date of Discharge: 06/02/20 - Primary Discharge Diagnosis Acute Problems: Active Problems Debility (Acute) Encephalopathy (Acute) Dysphagia (Acute) Urinary incontinence (Acute) Hospital-acquired pneumonia (Acute) MRSA bacteremia (Acute) - Secondary Discharge Diagnosis Chronic Problems: Chronic Problems History of hemorrhagic stroke with residual hemiparesis (Chronic) Mixed aphasia (Chronic) Stroke (Chronic) Right hemiparesis (Chronic) Seizure disorder (Chronic) Hyperlipidemia (Chronic) BPH (benign prostatic hyperplasia) (Chronic) Fatty liver (Chronic) Hospital Course and Treatment Imaging Results: 05/24/20 10:59 Diet: Cardiac - Heart Healthy Food consistency:: Mechanical (Minced/Moist) Liquid Consistency:: [place]/Mildly Thick Dietary Modifications:: Sodium Restricted Is pt able to select menu?: No Diet Comments: CUT FOODS INTO BITE SIZED PIECES Crush meds and put in applesauce Clinical Impression(s) from Imaging Studies Chest X-Ray 05/11/20 05:22 IMPRESSION: Stable Chest no visualized acute focal infiltrate. Electronically Signed: Eli Jacobs MD at 6:05 EDT Tel , Service support , KUB X-Ray 05/14/20 09:20 IMPRESSION: Gaseous distention of the transverse colon with a thickened haustral pattern. Follow-up is recommended. Electronically Signed: Vance Ledesma, at 11:13 EDT , Service support , Labs (Last 48 Hours) 05/23/20 05/23/20 06:05 06:05 WBC 10.5 RBC 4.66 Hgb 13.0 Hct 42.4 MCV 91.0 MCH 27.9 MCHC 30.7 L RDW Std Deviation 46.1 H RDW Coeff of Shazia 13.9 Plt Count 346 MPV 10.4 Immature Gran % (Auto) 1.400 H Neut % (Auto) 69.6 Lymph % (Auto) 16.4 L [place] % (Auto) 5.7 Eos % (Auto) 5.8 H Baso % (Auto) 1.1 H Absolute Neuts (auto) 7.3 Absolute Lymphs (auto) 1.72 Nucleated RBC % 0 Sodium 137 Potassium 4.1 Chloride 106 Carbon Dioxide 24.0 Anion Gap 7 BUN 11 Creatinine 1.13 Estim Creat Clear Calc 66.40 Est GFR (MDRD) Af Amer 84 Est GFR (MDRD) Non-Af 69 BUN/Creatinine Ratio 9.7 L Glucose 95 Calcium 8.7 Microbiology 05/18/20 10:00 Blood Culture (Wb) - Left Hand Blood Culture - Final No growth in 5 days. Consultations 04/06/20 22:24 Consult: Onc/Wound/screen printing machine operator Routine Comment: Reason for Consult:: Wounds on Bilateral buttocks Operations: None Procedures: None Summary of Care Provided: The patient is a 65 year old Male with below past medical history hospitalized for right basal ganglia stroke, complicated by dysphagia requiring tube feeding, hospital acquired pneumonia, admitted to TCU with debility, here for rehabilitation, strengthening, prior to disposition determination, may require terminal block assembler care. On TCU, resident developed sepsis with MRSA bacteremia, Dr. Laura consulted, treated with Vancomycin, Linezolid, resolved. [facility] to [facility], PT/OT. Patient Problems: Active and Suspected Problems Debility (Acute) Encephalopathy (Acute) Dysphagia (Acute) Urinary incontinence (Acute) Hospital-acquired pneumonia (Acute) MRSA bacteremia (Acute) - Physical Exam Vitals/I&O's: Vital Signs Temp Pulse Resp BP Pulse Ox 96.6 F L 68 16 114/72 96 05/24/20 13:34 05/24/20 13:34 05/24/20 13:34 05/24/20 13:34 05/24/20 13:34 Oxygen Delivery Method Room Air Weight: 78.613 kg Body Mass Index (BMI) 26.5 Finger Stick Blood Glucose 111 Intake and Output for Last 24 Hours 05/22/20 05/23/20 05/24/20 23:59 23:59 23:59 Intake Total 420 / 420 480 / 480 600 / 600 Balance 420 / 420 480 / 480 600 / 600 Microbiology Past 72 Hours 05/18/20 10:00 Blood Culture (Wb) - Left Hand Blood Culture - Final No growth in 5 days. 05/17/20 08:28 Blood Culture (Wb) - Left Hand Blood Culture - Final No growth in 5 days. Current Medications Acetaminophen (Tylenol) 650 mg PO Q4H PRN PRN PRN Reason: Pain Score 1-1010 Last Admin: 05/24/20 08:07 Dose: 650 mg Documented by: Aspirin (Aspirin, Baby) 81 mg PO DAILY@0800 [facility] Last Admin: 05/24/20 08:06 Dose: 81 mg Documented by: Atorvastatin Calcium (Lipitor) 80 mg PO QHS [facility] Last Admin: 05/24/20 19:43 Dose: 80 mg Documented by: Bacitracin (Bacitracin Ointment) 1 applic TOPICAL BID PRN PRN; Protocol PRN Reason: redness Calamine/Phenol (Calmoseptine Ointment) 1 applic TOPICAL TID [facility]; Protocol Last Admin: 05/24/20 19:45 Dose: 1 applicatio Documented by: Lactobacillus Acidophilus (Acidophilus) 1 tablet PO BID [facility] Last Admin: 05/24/20 17:05 Dose: 1 tablet Documented by: Levetiracetam (Keppra Tablet) 1,000 mg PO BID [facility] Last Admin: 05/24/20 17:04 Dose: 1,000 mg Documented by: Linezolid (Zyvox) 600 mg PO BID [facility] Stop: 05/31/20 05:00 Last Admin: 05/24/20 17:04 Dose: 600 mg Documented by: Lorazepam (Ativan) 0.5 mg PO Q6H PRN PRN PRN Reason: Agitation/Restlessness Nystatin (Mycostatin Powder) 1 applic TOPICAL 0600,2200 [facility]; Protocol Last Admin: 05/24/20 19:45 Dose: 1 applicatio Documented by: Polyethylene Glycol (Miralax) 17 gm PO BID [facility] Last Admin: 05/24/20 17:03 Dose: Not Given Documented by: Pot[facility] ([facility]) [facility] Last Admin: 05/24/20 17:05 Dose: 40 meq Documented by: Senna/Docusate Sodium (Senokot-S, Amisha-Colace) 2 tablet PO BID [facility] Last Admin: 05/24/20 17:04 Dose: Not Given Documented by: Sodium Chloride () 10 - 40 ml IV UD PRN PRN Reason: SALINE FLUSH Last Admin: 05/18/20 21:59 Dose: 10 ml Documented by: Tamsulosin HCl (Flomax) 0.4 mg PO DAILY@1730 [facility] Last Admin: 05/24/20 17:05 Dose: 0.4 mg Documented by: Discharge Diet: No Restrictions Discharge Activity: Return to Normal Activity, May Shower, Use Walker Weight Bearing Status: Weight bearing as tolerated Call your doctor if you observe: Fever of 101 or Higher, Inability to urinate, Inability to have a bowel movement, Shortness of breath, Chest pain, Uncontrolled pain Home Medications: Medications to take at Discharge Acetaminophen [Tylenol Tablet] 650 mg PO Q4H PRN PRN tablet 05/24/20 Aspirin [Aspirin, Baby] 81 mg PO DAILY@0800 tab.chew 05/24/20 Atorvastatin Calcium [Lipitor] 80 mg PO QHS tablet 05/24/20 Bacitracin Ointment 1 applic TOPICAL BID PRN PRN tube 05/24/20 Menthol/Lanolin/Calamine/Znox [Calmoseptine Ointment] 1 applic TOPICAL TID tube 05/24/20 Nystatin Powder [Mycostatin Powder] 1 applic TOPICAL 0600,2200 bottle 05/24/20 Polyethylene Glycol 3350 [Miralax] 17 gm PO BID packet 05/24/20 Potassium Chloride [K-Dur] 40 meq PO BIDCM tablet 05/24/20 Senna/Docusate Sodium [Senokot-S] 2 tablet PO BID tablet 05/24/20 Tamsulosin HCl [Flomax] 0.4 mg PO DAILY@1730 capsule 05/24/20 levETIRAcetam tablet [Keppra tablet] 1,000 mg PO BID tablet 05/24/20 Primary Care Physician: Evon Oneal MD [Primary Care Provider] - Please follow up with your Primary Care Physician in: 1 week. Disposition: [facility] facility Minutes spent on discharge:: 35 Patient Condition:: Stable Medical Necessity - Tobacco Use Smoking Status: Former smoker Tobacco Use: Non-smoker Meaningful Use Info Meaningful Use Diagnoses (Choose all that apply): None applicable
--- NOTE | 2020-05-24 21:48 | PCM.TXEXTCAR ---
- Diet 05/24/20 10:59 Diet: Cardiac - Heart Healthy Food consistency:: Mechanical (Minced/Moist) Liquid Consistency:: [place]/Mildly Thick Dietary Modifications:: Sodium Restricted Is pt able to select menu?: No Diet Comments: CUT FOODS INTO BITE SIZED PIECES Crush meds and put in applesauce - Routine Orders/Code Status Suppository Type: Dulcolax 10mg Suppository Frequency: Daily PRN Code Status: DNRCC-A - With Intubation. - Wound(s) right buttox Wound Type: Pressure Injury Dressing Change: jesse nystatin left buttox Wound Type: Pressure Injury Dressing Change: jesse nystatin right knee Wound Type: Abrasion left buttock Wound Type: shearing Dressing Change: jesse w/stoma powder Left Elbow Wound Type: Shearing right buttock Wound Type: shearing Dressing Change: jesse w/stoma powder Right Thigh Wound Type: scab Dressing Change: mepilex - Therapies Weight Bearing: Weight bearing as tolerated Extremity Affected:: Bilateral Lower Physical Therapy: Eval and Treat Occupational Therapy: Eval and Treat - Problem/Diagnosis (1) Debility Status: Acute Current Visit: Yes (2) Encephalopathy Status: Acute Current Visit: Yes (3) Mixed aphasia Status: Chronic Current Visit: Yes (4) Dysphagia Status: Acute Current Visit: Yes (5) Urinary incontinence Status: Acute Current Visit: Yes (6) Hospital-acquired pneumonia Status: Acute Current Visit: Yes (7) Stroke Status: Chronic Current Visit: Yes (8) Right hemiparesis Status: Chronic Current Visit: Yes (9) Seizure disorder Status: Chronic Current Visit: Yes (10) Hyperlipidemia Status: Chronic Current Visit: Yes (11) BPH (benign prostatic hyperplasia) Status: Chronic Current Visit: Yes (12) Fatty liver Status: Chronic Current Visit: Yes - Allergies/Procedures Done in Hospital Allergies/Adverse Reactions: Allergies Iodinated Contrast Media [CONTRASTS] Allergy (Verified 03/19/19 14:02) Hives - Type of Care/Length of Stay Estimated LOS: Convalescent Care Less Than 30 days Type of Care Needed: Skilled Rehab Potential: Fair Prognosis: Fair - Additional Orders/Day of Discharge Day of Discharge: 06/02/20 - Dietary and Speech Recommendations Dietitian Recommendations/Changes: Continue cardiac, low sodium diet-consistency per DIRECTOR OF MOBILE MARKETING. Continue ONS w/ meals for additional nutrition if consumed. Speech Linguistic Eval Summary: Pt unable to provide name and only responded with April for . Reoriented to , name, location, and current date. Pt often did not respond to DIRECTOR OF MOBILE MARKETING's questions. 2x pt responded verbally with ba ba ba. An occasional yes/no nod provided by pt with inaccuracy. Pt unable to provide any animal names. Pt able to complete automatic speech tasks 1-10, days of the week, and months of the year with initial verbal cues i.e. one, two...your turn. Pt required max cues with simple, one step directions. Cognitive testing limited due to limited comprehension and expressive language. - Follow Up Care Primary Care Physician: Evon Oneal MD [Primary Care Provider] - Please follow up with your Primary Care Physician in: 1 week.
[2020-05-25 04:00] VITALS: BP 112/72; PULSE 74; RESP 16; TEMP 37.1; O2SAT 93
[2020-05-25] MEDS: Linezolid 600 MG Tablet PO ×2 (06:49→17:41)
[2020-05-25] MEDS: Senna/Docusate Sodium 1 Tablet 2 TABLET PO (06:49)
[2020-05-25] MEDS: levETIRAcetam 1,000 MG Tablet 1000 MG PO ×2 (06:49→17:42)
[2020-05-25] MEDS: Nystatin Powder 15gm Bottle 1 APPLIC TOPICAL ×2 (06:52→22:12)
[2020-05-25] MEDS: Menthol/Lanolin/Calamine/Znox 113 GM Tube 1 APPLIC TOPICAL ×3 (06:52→22:12)
[2020-05-25] MEDS: Aspirin 81 MG TAB.CHEW PO (08:39)
--- NOTE | 2020-05-25 10:26 | CASEMGMT ---
Addendum entered by Arianna Montes 05/25/20 10:54: S.O. requested to schedule transport for DC. Scheduled cot transport for 11 am with [facility]. Original Note: Social Work Spoke with pt's S.O. and she has decided to DC pt home. Inquired about 30/04 care. She stated she has several people lined up to help her and someone is moving in with her to care for him. Referred back to [facility] for PT/OT/ST/SN/SINGLE WIRE SAW OPERATOR/SW. No DME needs. Arianna Montes, PRIYA FERNANDEZW
[2020-05-25 14:01] VITALS: BP 121/76; PULSE 77; RESP 16; TEMP 36.3; O2SAT 97
[2020-05-25] MEDS: Tamsulosin HCl 0.4 MG Capsule PO (17:42)
[2020-05-25] MEDS: Atorvastatin Calcium 80 MG Tablet PO (22:12)
[2020-05-26] MEDS: Senna/Docusate Sodium 1 Tablet 2 TABLET PO ×2 (05:26→17:02)
[2020-05-26] MEDS: Menthol/Lanolin/Calamine/Znox 113 GM Tube 1 APPLIC TOPICAL ×3 (05:26→21:23)
[2020-05-26] MEDS: levETIRAcetam 1,000 MG Tablet 1000 MG PO ×2 (05:26→17:02)
[2020-05-26] MEDS: Nystatin Powder 15gm Bottle 1 APPLIC TOPICAL ×2 (05:26→21:23)
[2020-05-26] MEDS: Linezolid 600 MG Tablet PO ×2 (05:26→17:03)
[2020-05-26 05:35] VITALS: BP 111/78; PULSE 76; RESP 18; TEMP 36.3; O2SAT 98
[2020-05-26] MEDS: Aspirin 81 MG TAB.CHEW PO (08:41)
[2020-05-26 14:49] VITALS: BP 131/95; PULSE 78; RESP 18; TEMP 36.4; O2SAT 97
[2020-05-26] MEDS: Polyethylene Glycol 3350 17 GM PACKET PO (17:02)
[2020-05-26] MEDS: Tamsulosin HCl 0.4 MG Capsule PO (17:02)
[2020-05-26] MEDS: Atorvastatin Calcium 80 MG Tablet PO (21:23)
[2020-05-27] MEDS: Senna/Docusate Sodium 1 Tablet 2 TABLET PO ×2 (06:05→16:40)
[2020-05-27] MEDS: Linezolid 600 MG Tablet PO ×2 (06:06→16:41)
[2020-05-27] MEDS: levETIRAcetam 1,000 MG Tablet 1000 MG PO ×2 (06:06→16:41)
[2020-05-27] MEDS: Menthol/Lanolin/Calamine/Znox 113 GM Tube 1 APPLIC TOPICAL ×3 (06:06→22:53)
[2020-05-27] MEDS: Polyethylene Glycol 3350 17 GM PACKET PO ×2 (06:06→16:41)
[2020-05-27] MEDS: Nystatin Powder 15gm Bottle 1 APPLIC TOPICAL ×2 (06:06→22:53)
[2020-05-27 06:15] VITALS: BP 119/74; PULSE 85; RESP 16; TEMP 36.6; O2SAT 95
[2020-05-27] MEDS: Aspirin 81 MG TAB.CHEW PO (08:48)
[2020-05-27 13:38] VITALS: BP 98/65; PULSE 83; RESP 17; TEMP 36.3; O2SAT 94
[2020-05-27] MEDS: Tamsulosin HCl 0.4 MG Capsule PO (16:41)
[2020-05-27] MEDS: Atorvastatin Calcium 80 MG Tablet PO (22:48)
[2020-05-28] MEDS: levETIRAcetam 1,000 MG Tablet 1000 MG PO ×2 (04:17→17:56)
[2020-05-28] MEDS: Polyethylene Glycol 3350 17 GM PACKET PO (04:17)
[2020-05-28] MEDS: Senna/Docusate Sodium 1 Tablet 2 TABLET PO (04:17)
[2020-05-28] MEDS: Linezolid 600 MG Tablet PO ×2 (04:18→17:56)
[2020-05-28] MEDS: Menthol/Lanolin/Calamine/Znox 113 GM Tube 1 APPLIC TOPICAL ×3 (04:28→20:41)
[2020-05-28] MEDS: Nystatin Powder 15gm Bottle 1 APPLIC TOPICAL ×2 (04:29→20:41)
[2020-05-28 04:35] VITALS: BP 111/72; PULSE 81; RESP 18; TEMP 37.2; O2SAT 96
[2020-05-28] MEDS: Aspirin 81 MG TAB.CHEW PO (07:55)
[2020-05-28 13:37] VITALS: PULSE 84; RESP 16; O2SAT 97
[2020-05-28 14:05] VITALS: BP 106/75; PULSE 77; RESP 16; TEMP 36.7; O2SAT 98
[2020-05-28] MEDS: Tamsulosin HCl 0.4 MG Capsule PO (17:55)
[2020-05-28] MEDS: Atorvastatin Calcium 80 MG Tablet PO (20:42)
[2020-05-29 05:18] VITALS: BP 128/83; PULSE 81; RESP 15; TEMP 36.8; O2SAT 98
[2020-05-29] MEDS: levETIRAcetam 1,000 MG Tablet 1000 MG PO ×2 (05:20→16:59)
[2020-05-29] MEDS: Senna/Docusate Sodium 1 Tablet 2 TABLET PO (05:20)
[2020-05-29] MEDS: Linezolid 600 MG Tablet PO ×2 (05:20→16:59)
[2020-05-29] MEDS: Polyethylene Glycol 3350 17 GM PACKET PO (05:20)
[2020-05-29] MEDS: Nystatin Powder 15gm Bottle 1 APPLIC TOPICAL ×2 (05:21→19:57)
[2020-05-29] MEDS: Menthol/Lanolin/Calamine/Znox 113 GM Tube 1 APPLIC TOPICAL ×3 (05:21→19:57)
[2020-05-29] MEDS: Aspirin 81 MG TAB.CHEW PO (09:11)
[2020-05-29 13:51] VITALS: BP 109/83; PULSE 81; RESP 16; TEMP 36.8; O2SAT 95
[2020-05-29] MEDS: Tamsulosin HCl 0.4 MG Capsule PO (16:59)
[2020-05-29] MEDS: Atorvastatin Calcium 80 MG Tablet PO (19:57)
[2020-05-30] MEDS: Polyethylene Glycol 3350 17 GM PACKET PO (05:20)
[2020-05-30] MEDS: Menthol/Lanolin/Calamine/Znox 113 GM Tube 1 APPLIC TOPICAL ×3 (05:22→20:13)
[2020-05-30] MEDS: Senna/Docusate Sodium 1 Tablet 2 TABLET PO ×2 (05:22→17:25)
[2020-05-30] MEDS: levETIRAcetam 1,000 MG Tablet 1000 MG PO ×2 (05:22→17:27)
[2020-05-30] MEDS: Linezolid 600 MG Tablet PO ×2 (05:22→17:25)
[2020-05-30] MEDS: Nystatin Powder 15gm Bottle 1 APPLIC TOPICAL ×2 (05:23→20:13)
[2020-05-30 05:24] VITALS: BP 119/77; PULSE 85; RESP 16; TEMP 37.5; O2SAT 93
[2020-05-30 06:08] LABS: Absolute Lymphocyte Count 1.81 X10^3/uL (0.83-4.51); Absolute Neutrophil Count 5.9 X10^3/uL (2.0-7.7); Basophil# 0.14 X10^3/uL; Basophil% 1.5 % (0-1); Eosinophils% 5.5 % (0-5); Hematocrit 44.4 % (40-54); Hemoglobin 13.3 g/dL (13.0-16.5); Lymphocyte # 1.81 X10^3/ul (4.0); Lymphocyte % 19.9 % (19-41); Mean Corpuscular Hgb 27.8 pg (27.0-32.0); Mean Corpuscular Volume 92.7 fL (80-94); Mean Platelet Vol. 10.2 fl (6.2-12.0); Monocyte# 0.72 X10^3/uL; Monocyte% 7.9 % (0-10); NRBC Flagged by Analyzer 0 % (0-5); Neutrophil # 5.92 X10^3/uL (2.7-7.7); Platelet Count 251 K/mm3 (150-450); RBC Distribution Width CV 14.2 % (11.6-14.6); RBC Distribution Width SD 48.2 fl (35.1-43.9); Red Blood Count 4.79 M/mm3 (4.6-6.2); White Blood Count 9.1 K/mm3 (4.4-11.0)
[2020-05-30 06:43] LABS: Anion Gap 7 (5-15); BUN 20 mg/dL (7-18); BUN/Creat Ratio 17.2 RATIO (10-20); Chloride 109 mmol/L (98-107); Creatinine, Serum 1.16 mg/dL (0.70-1.30); EST Glomerular Filtration Rate 67 mL/min (>60); Est Glom Filt Rate - Afr Amer 81 mL/min (>60); Estimated Creatinine Clearance 64.68 ml/min; Glucose 105 mg/dL (74-106); Potassium 4.2 mmol/L (3.5-5.1); Sodium Level 141 mmol/L (136-145)
[2020-05-30 10:00] VITALS: PULSE 85; RESP 16; O2SAT 95
[2020-05-30] MEDS: Aspirin 81 MG TAB.CHEW PO (10:06)
[2020-05-30 14:20] VITALS: BP 120/84; PULSE 79; RESP 16; TEMP 36.4; O2SAT 100
[2020-05-30] MEDS: Tamsulosin HCl 0.4 MG Capsule PO (17:25)
[2020-05-30] MEDS: Atorvastatin Calcium 80 MG Tablet PO (20:14)
[2020-05-31] MEDS: levETIRAcetam 1,000 MG Tablet 1000 MG PO ×2 (05:24→17:34)
[2020-05-31] MEDS: Menthol/Lanolin/Calamine/Znox 113 GM Tube 1 APPLIC TOPICAL ×3 (05:24→22:05)
[2020-05-31] MEDS: Nystatin Powder 15gm Bottle 1 APPLIC TOPICAL ×2 (05:25→22:05)
[2020-05-31] MEDS: Polyethylene Glycol 3350 17 GM PACKET PO (05:25)
[2020-05-31 05:29] VITALS: BP 153/89; PULSE 96; RESP 20; TEMP 36.3; O2SAT 96
--- NOTE | 2020-05-31 05:41 | NURSING ---
0540- During AM care R arm noted to have a red/raised area that is warm to the touch. Site marked with skin marker. Pt denies pain/itching. Note left for Dr. Booker. Oral temperature 99.3
[2020-05-31] MEDS: Aspirin 81 MG TAB.CHEW PO (08:41)
--- NOTE | 2020-05-31 12:36 | NURSING ---
family up dated
[2020-05-31 13:54] VITALS: BP 104/77; PULSE 106; RESP 18; TEMP 36.6; O2SAT 97
[2020-05-31] MEDS: Tamsulosin HCl 0.4 MG Capsule PO (17:33)
[2020-05-31] MEDS: Atorvastatin Calcium 80 MG Tablet PO (21:59)
[2020-06-01 05:18] VITALS: BP 96/76; PULSE 91; RESP 16; TEMP 37; O2SAT 98
[2020-06-01] MEDS: Nystatin Powder 15gm Bottle 1 APPLIC TOPICAL ×2 (05:20→21:59)
[2020-06-01] MEDS: Menthol/Lanolin/Calamine/Znox 113 GM Tube 1 APPLIC TOPICAL ×3 (05:20→21:59)
[2020-06-01] MEDS: Polyethylene Glycol 3350 17 GM PACKET PO (05:22)
[2020-06-01] MEDS: levETIRAcetam 1,000 MG Tablet 1000 MG PO ×2 (05:22→17:14)
[2020-06-01] MEDS: Senna/Docusate Sodium 1 Tablet 2 TABLET PO (05:22)
[2020-06-01] MEDS: Aspirin 81 MG TAB.CHEW PO (07:56)
[2020-06-01 10:55] VITALS: PULSE 86; RESP 18; O2SAT 96
[2020-06-01 14:17] VITALS: BP 116/77; PULSE 79; RESP 16; TEMP 36.2; O2SAT 93
[2020-06-01] MEDS: Tamsulosin HCl 0.4 MG Capsule PO (17:14)
[2020-06-01] MEDS: Atorvastatin Calcium 80 MG Tablet PO (22:05)
[2020-06-02 04:35] VITALS: BP 106/74; PULSE 88; RESP 16; TEMP 36.3; O2SAT 98
[2020-06-02] MEDS: Menthol/Lanolin/Calamine/Znox 113 GM Tube 1 APPLIC TOPICAL (04:46)
[2020-06-02] MEDS: levETIRAcetam 1,000 MG Tablet 1000 MG PO (04:46)
[2020-06-02] MEDS: Nystatin Powder 15gm Bottle 1 APPLIC TOPICAL (04:47)
[2020-06-02] MEDS: Aspirin 81 MG TAB.CHEW PO (08:46)
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
[2020-06-02 10:00] VITALS: RESP 16; O2SAT 102
--- NOTE | 2020-06-02 10:30 | PCA ---
HOUSE STEWARD/STEWARDESS gem tried to shave pt and pt became angry so vivienne and i went into finish up his AM care pt would not allow staff to shave him on 2nd attempt finished AM care and got pt in the wheelchair told RN to explain why pt is half shaven to upon Discharge
[2020-06-02 11:27] VITALS: BP 99/74; PULSE 102; RESP 18; TEMP 36.3; O2SAT 91
== END 2020-06-02 11:28 | disposition home health service (06) | DRG 56 ==
PROVIDERS: Internal Medicine Infectious Disease; Admitting Provider Family Medicine Geriatric Medicine; PCP Internal Medicine; Visit Provider Family Medicine Geriatric Medicine
DX: I69.351 Hemiplegia and hemiparesis following cerebral infarction affecting right dominant side (principal); J18.9 Pneumonia, unspecified organism; A41.02 Sepsis due to Methicillin resistant Staphylococcus aureus; G93.40 Encephalopathy, unspecified; R47.01 Aphasia; I69.391 Dysphagia following cerebral infarction; Z23 Encounter for immunization; N40.0 Benign prostatic hyperplasia without lower urinary tract symptoms; E78.5 Hyperlipidemia, unspecified; G40.909 Epilepsy, unspecified, not intractable, without status epilepticus; Y95 Nosocomial condition; Z87.891 Personal history of nicotine dependence; K76.0 Fatty (change of) liver, not elsewhere classified; B35.4 Tinea corporis; R32 Unspecified urinary incontinence; R13.10 Dysphagia, unspecified; L89.312 Pressure ulcer of right buttock, stage 2; L89.322 Pressure ulcer of left buttock, stage 2
CPT/HCPCS: 36415; 71045; 74018; 74230; 80048; 80202; 81001; 85025; 85027; 87040; 87070; 87077; 87086; 87088; 87149; 87186; 87205; 87633; 92507; 92523; 92526; 92610; 92611; 93306; 97110; 97112; 97116; 97163; 97166; 97530; 97535; 97537; 97802; 97803; G0009; J7030; J7040; J7050; 90670; A4216

== ENCOUNTER 2020-05-13 17:20 | Emergency (ER) | payer MEDICARE, SELFPAY ==
[2020-05-13 17:23] VITALS: BP 213/107; PULSE 95; RESP 28; TEMP 37.4; O2SAT 95; BMI 26.6
--- NOTE | 2020-05-13 17:45 | CT_ITS ---
STUDY: CT ABDOMEN AND PELVIS WITHOUT CONTRAST REASON FOR EXAM: Male, 65 years old. DIFFUSE ABD PAIN, DISTENTION, RT NEPHRECTOMY D/T CANCER. MRSA in urine RADIATION DOSAGE (If Supplied By Facility): CTDIvol = ( 15.77 ) mGy, DLP = ( 902.41 ) mGycm TECHNIQUE: Transaxial images were obtained from the dome of the diaphragm to the symphysis pubis without oral contrast, and without intravenous contrast. Sagittal and coronal images were reconstructed. Individualized dose optimization techniques were used for this CT. COMPARISON: None. FINDINGS: The visualized lung bases are unremarkable. The visualized portions of the heart demonstrate coronary artery calcifications. Normal liver. The gallbladder is contracted. Normal spleen. Normal pancreas. Normal bilateral adrenal glands. Tiny nonobstructing right lower pole calculus measures 1 to 2 mm. Otherwise unremarkable right kidney. Left nephrectomy. Normal visualized stomach. Normal small intestine. There is prominent gaseous distention of the large bowel mostly involving the transverse colon moderate stool burden. Diverticulosis and moderate stool burden in the distal colon.. The appendix is visualized and appears normal. There is diffuse atherosclerotic calcification of the abdominal aorta, without a demonstrated aneurysm. Normal inferior vena cava. Normal retroperitoneum. Normal urinary bladder. There is enlargement of the prostate gland. Normal abdominal wall. Normal osseous structures. CT/Abdomen/Pelvis without Cont IMPRESSION: Prominent gaseous distention of the transverse colon may be related to distal stool burden. No evidence for small bowel obstruction. Enlarged prostate. Electronically Signed: Jaya Hernandez, at 18:56 EDT Tel , Service support ,
--- NOTE | 2020-05-13 17:46 | ED.DCSUM_ITS ---
History of Present Illness Chief Complaint: Abd Pain Informant: Patient, - - TCU staff/RN - Abdominal Pain/Flank Pain Onset: Today Context: - - unk onset Timing: Continuous Quality: - - distension Location: - - unk, pt cannot indicate Current Severity: unk - Nausea/Vomiting/Emesis GI Symptom: Negative for: Vomiting Narrative: Patient is in [facility], he had a large stroke with right- sided hemiparesis, very little detail and history is able to be obtained, but he was sent here to the ER by staff because of abdominal distention that was noticed today. He is on ceftriaxone, urine culture recently grew out MRSA, and he has a blood culture that grew out gram-positive cocci in clusters, while the other blood culture is negative, suggesting that the positive one is due to contamination. He is DNR CCA with intubation if needed. History from the patient is not possible due to his dense aphasia. - Past Medical History (1) Mixed aphasia Status: Chronic (2) Stroke Status: Chronic (3) BPH (benign prostatic hyperplasia) Status: Chronic (4) Fatty liver Status: Chronic (5) Hyperlipidemia Status: Chronic (6) Right hemiparesis Status: Chronic (7) Seizure disorder Status: Chronic (8) History of hemorrhagic stroke with residual hemiparesis Status: Chronic Past Medical History - Allergies and Home Meds Allergies/Adverse Reactions: Allergies Iodinated Contrast Media [CONTRASTS] Allergy (Verified 03/19/19 14:02) Hives Primary Care Physician: Zaid Booker Chi, MD [COURTESY STAFF PHYSICIAN] - 1 Day Surgical History: no surgical history Lives: Long-Term Smoking Status: Former smoker - Family History Maternal Family History: Reports: No pertinent history Paternal Family History: Reports: No pertinent history Review of Systems ROS: Unable to Obtain Physical Exam Vital Signs/Narrative: Vital Signs Temp Pulse Resp BP Pulse Ox 05/13/20 17:23 99.3 F H 95 28 H 213/107 H 95 General: Well nourished, Well developed, No Acute Distress Head: Normocephalic, Atraumatic Eyes: Perrl, EOMI ENT: Moist mucous membranes, No rhinorrhea Neck: Supple, Nontender Cardiovascular: Regular rate, Regular rhythm, No murmurs Respiratory: No distress, CTA bilaterally, Chest nontender Abdomen: Soft, Tender - Diffuse, Hyperactive bowel sounds, - - Distended, no palpable fluid wave. Tympanitic to percussion.. Negative for: Guarding, Rebound tenderness Extremities: Nontender, - - No deformities Skin: Normal color, No rash Neurological: Alert, Cranial nerves II-XII grossly intact, Confused - Limited evaluation due to aphasia, but patient follows some commands, Weakness - Right hemiparalysis Diagnostic/Tx/Re-eval Impressions Abdomen/Pelvis CT 05/13/20 17:45 IMPRESSION: Prominent gaseous distention of the transverse colon may be related to distal stool burden. No evidence for small bowel obstruction. Enlarged prostate. Electronically Signed: Jaya Mary, at 18:56 EDT Tel , Service support , 05/13/20 17:45 CT Abd [Abdomen/Pelvis without Cont] [CT] Stat Laboratory Results 05/13/20 05/13/20 18:15 18:15 WBC 12.4 H RBC 4.39 L Hgb 12.5 L Hct 40.3 MCV 91.8 MCH 28.5 MCHC 31.0 L RDW Std Deviation 46.6 H RDW Coeff of Shazia 13.7 Plt Count 264 MPV 10.9 Immature Gran % (Auto) 1.000 H Neut % (Auto) 83.6 H Lymph % (Auto) 5.5 L [place] % (Auto) 6.6 Eos % (Auto) 2.9 Baso % (Auto) 0.4 Absolute Neuts (auto) 10.4 H Absolute Lymphs (auto) 0.68 L Nucleated RBC % 0 Sodium 143 Potassium 3.6 Chloride 113 H Carbon Dioxide 26.0 Anion Gap 4 L BUN 12 Creatinine 1.03 Estim Creat Clear Calc 72.84 Est GFR (MDRD) Af Amer 93 Est GFR (MDRD) Non-Af 77 BUN/Creatinine Ratio 11.7 Glucose 108 H Calcium 8.7 Total Bilirubin 0.50 AST 87 H ALT 102 H Alkaline Phosphatase 133 H Total Protein 7.2 Albumin 2.4 L Globulin 4.8 H Albumin/Globulin Ratio 0.5 L Lipase 268 - Medical Decision Making As the test results indicate, the patient is likely obstipated. We did an enema and get out a little stool, but the patient is stable, his blood pressure is high, but he has nighttime medications to get in TCU, and given his stability otherwise we think it is reasonable to discharge him at this time. The patient is feeling better on reevaluation and he is less distended. I performed a r ectal exam after the enema, and the vault is clear distally. He was given appropriate discharge instructions for constipation, nurses can continue to work with him and give him suppositories/enemas if needed, but there is no sign of an obstruction or anything else emergent. ED Disposition - Plan for ED Patient: Disposition: Home or Assisted Living Diagnosis: Constipation Instructions: ED Constipation Referrals: Zaid Booker Chi, MD [COURTESY STAFF PHYSICIAN] - 1 Day
[2020-05-13 18:30] LABS: Absolute Lymphocyte Count 0.68 X10^3/uL (0.83-4.51); Absolute Neutrophil Count 10.4 X10^3/uL (2.0-7.7); Basophil# 0.05 X10^3/uL; Basophil% 0.4 % (0-1); Eosinophil# 0.36 X10^3/uL; Eosinophils% 2.9 % (0-5); Hematocrit 40.3 % (40-54); Hemoglobin 12.5 g/dL (13.0-16.5); Lymphocyte # 0.68 X10^3/ul (4.0); Lymphocyte % 5.5 % (19-41); Mean Corpuscular Hgb 28.5 pg (27.0-32.0); Mean Corpuscular Volume 91.8 fL (80-94); Mean Platelet Vol. 10.9 fl (6.2-12.0); Monocyte# 0.82 X10^3/uL; Monocyte% 6.6 % (0-10); NRBC Flagged by Analyzer 0 % (0-5); Neutrophil % 83.6 % (47-70); Platelet Count 264 K/mm3 (150-450); RBC Distribution Width CV 13.7 % (11.6-14.6); RBC Distribution Width SD 46.6 fl (35.1-43.9); Red Blood Count 4.39 M/mm3 (4.6-6.2); White Blood Count 12.4 K/mm3 (4.4-11.0)
[2020-05-13 18:45] LABS: ALB/GLOB Ratio 0.5 RATIO (0.9-2.4); AST(SGOT) 87 U/L (15-37); Alanine Aminotransfer ALT/SGPT 102 U/L (16-61); Albumin, Serum 2.4 g/dL (3.2-5.0); Alkaline Phosphatase 133 U/L (45-117); Anion Gap 4 (5-15); BUN 12 mg/dL (7-18); BUN/Creat Ratio 11.7 RATIO (10-20); Calcium,Total 8.7 mg/dL (8.5-10.1); Chloride 113 mmol/L (98-107); Creatinine, Serum 1.03 mg/dL (0.70-1.30); EST Glomerular Filtration Rate 77 mL/min (>60); Est Glom Filt Rate - Afr Amer 93 mL/min (>60); Estimated Creatinine Clearance 72.84 ml/min; Globulin 4.8 g/dL (2.2-4.2); Glucose 108 mg/dL (74-106); Lipase 268 U/L (73-393); Potassium 3.6 mmol/L (3.5-5.1); Protein, Total 7.2 g/dL (6.4-8.2); Sodium Level 143 mmol/L (136-145)
[2020-05-13 20:00] VITALS: BP 194/98; PULSE 93; RESP 16; TEMP 37.6; O2SAT 94
[2020-05-13 21:06] VITALS: BP 194/97; PULSE 100; RESP 16; TEMP 37.6; O2SAT 94
[2020-05-13 22:08] VITALS: BP 174/85; PULSE 93; RESP 18; O2SAT 93
== END 2020-05-13 22:17 ==
PROVIDERS: Emergency Provider Emergency Medicine; PCP Internal Medicine
DX: K59.00 Constipation, unspecified (principal); E78.5 Hyperlipidemia, unspecified; N40.0 Benign prostatic hyperplasia without lower urinary tract symptoms; Z86.73 Personal history of transient ischemic attack (TIA), and cerebral infarction without residual deficits; Z87.891 Personal history of nicotine dependence
CPT/HCPCS: 74176; 80053; 83690; 85025; 99284; A4216

== ENCOUNTER → 2020-06-09 16:09 | Outpatient (CLI) | payer MEDICARE, SELFPAY ==
[2020-05-13 17:23] VITALS: BMI 26.6
[2020-06-09 17:31] LABS: Absolute Lymphocyte Count 1.36 X10^3/uL (0.83-4.51); Absolute Neutrophil Count 6.2 X10^3/uL (2.0-7.7); Basophil# 0.06 X10^3/uL; Basophil% 0.6 % (0-1); Eosinophil# 1.21 X10^3/uL; Eosinophils% 12.6 % (0-5); Hematocrit 39.5 % (40-54); Hemoglobin 12.3 g/dL (13.0-16.5); Lymphocyte # 1.36 X10^3/ul (4.0); Lymphocyte % 14.2 % (19-41); Mean Corp Hgb Conc 31.1 g/dL (32-36); Mean Corpuscular Hgb 27.3 pg (27.0-32.0); Mean Corpuscular Volume 87.6 fL (80-94); Mean Platelet Vol. 11.2 fl (6.2-12.0); Monocyte# 0.78 X10^3/uL; Monocyte% 8.1 % (0-10); NRBC Flagged by Analyzer 0.2 % (0-5); Neutrophil # 6.15 X10^3/uL (2.7-7.7); Neutrophil % 64.2 % (47-70); Platelet Count 300 K/mm3 (150-450); RBC Distribution Width CV 14.3 % (11.6-14.6); Red Blood Count 4.51 M/mm3 (4.6-6.2); White Blood Count 9.6 K/mm3 (4.4-11.0)
[2020-06-09 17:53] LABS: ALB/GLOB Ratio 0.7 RATIO (0.9-2.4); AST(SGOT) 34 U/L (15-37); Alanine Aminotransfer ALT/SGPT 55 U/L (16-61); Albumin, Serum 3.3 g/dL (3.2-5.0); Alkaline Phosphatase 93 U/L (45-117); Anion Gap 6 (5-15); BUN 12 mg/dL (7-18); Chloride 113 mmol/L (98-107); Creatinine, Serum 1.09 mg/dL (0.70-1.30); EST Glomerular Filtration Rate 72 mL/min (>60); Est Glom Filt Rate - Afr Amer 87 mL/min (>60); Globulin 4.9 g/dL (2.2-4.2); Glucose 94 mg/dL (74-106); Potassium 4.4 mmol/L (3.5-5.1); Protein, Total 8.2 g/dL (6.4-8.2); Sodium Level 142 mmol/L (136-145); Thyroid Stim Hormone (TSH) 3.63 uIU/mL (0.358-3.74)
[2020-06-10 10:12] LABS: Hepatitis C Antibody Non-Reactive (Nonreactive); Vitamin D,25 Hydroxy 40.2 ng/mL
== END ==
PROVIDERS: PCP Family Medicine Geriatric Medicine; Visit Provider Family Medicine Geriatric Medicine
DX: E55.9 Vitamin D deficiency, unspecified (principal); R53.83 Other fatigue; Z02.5 Encounter for examination for participation in sport; Z13.89 Encounter for screening for other disorder
CPT/HCPCS: 36415; 80053; 82306; 84153; 84443; 85025; 86803; G0103

== ENCOUNTER → 2020-12-01 13:07 | Outpatient (CLI) | payer MEDICARE, SELFPAY ==
[2020-12-01 16:14] LABS: Absolute Lymphocyte Count 1.42 X10^3/uL (0.83-4.51); Absolute Neutrophil Count 5.5 X10^3/uL (2.0-7.7); Basophil# 0.08 X10^3/uL; Basophil% 0.9 % (0-1); Eosinophil# 0.85 X10^3/uL; Eosinophils% 9.8 % (0-5); Hematocrit 37.6 % (40-54); Hemoglobin 11.9 g/dL (13.0-16.5); Lymphocyte # 1.42 X10^3/ul (4.0); Lymphocyte % 16.4 % (19-41); Mean Corp Hgb Conc 31.6 g/dL (32-36); Mean Corpuscular Hgb 27.8 pg (27.0-32.0); Mean Corpuscular Volume 87.9 fL (80-94); Mean Platelet Vol. 11.3 fl (6.2-12.0); Monocyte# 0.74 X10^3/uL; Monocyte% 8.6 % (0-10); NRBC Flagged by Analyzer 0 % (0-5); Neutrophil # 5.53 X10^3/uL (2.7-7.7); Neutrophil % 64.1 % (47-70); Platelet Count 274 K/mm3 (150-450); RBC Distribution Width CV 13.8 % (11.6-14.6); RBC Distribution Width SD 44.3 fl (35.1-43.9); Red Blood Count 4.28 M/mm3 (4.6-6.2); White Blood Count 8.6 K/mm3 (4.4-11.0)
[2020-12-01 16:42] LABS: Vitamin D,25 Hydroxy 13.3 ng/mL
[2020-12-01 16:57] LABS: ALB/GLOB Ratio 0.7 RATIO (0.9-2.4); AST(SGOT) 14 U/L (15-37); Alanine Aminotransfer ALT/SGPT 26 U/L (16-61); Alkaline Phosphatase 97 U/L (45-117); Anion Gap 6 (5-15); BUN 17 mg/dL (7-18); BUN/Creat Ratio 12.1 RATIO (10-20); Calcium,Total 8.8 mg/dL (8.5-10.1); Chloride 111 mmol/L (98-107); EST Glomerular Filtration Rate 54 mL/min (>60); Est Glom Filt Rate - Afr Amer 65 mL/min (>60); Globulin 4.3 g/dL (2.2-4.2); Glucose 99 mg/dL (74-106); Protein, Total 7.3 g/dL (6.4-8.2); Sodium Level 142 mmol/L (136-145); Thyroid Stim Hormone (TSH) 2.51 uIU/mL (0.358-3.74)
[2020-12-01 18:21] LABS: M R Staph aureus DNA By PCR Negative (Negative); Staph aureus DNA By PCR NEGATIVE (Negative)
[2020-12-01 18:22] LABS: Probe Check PASS
== END ==
PROVIDERS: PCP Family Medicine Geriatric Medicine; Visit Provider Family Medicine Geriatric Medicine
DX: E55.9 Vitamin D deficiency, unspecified (principal); R53.83 Other fatigue
CPT/HCPCS: 36415; 80053; 82306; 84443; 85025; 87070; 87205; 87640

== ENCOUNTER 2020-12-25 09:38 | Observation (INO) | payer MEDICARE, SELFPAY ==
[2020-12-25] VITALS (7 sets, daily range): BP systolic 147–179; BP diastolic 84–120; PULSE 85–104; RESP 16–18; TEMP 36.6–37; O2SAT 96; BMI 22.4; BMI 21.7; BMI 21.8
--- NOTE | 2020-12-25 10:00 | EKG12_ITS ---
Test Reason : WEAKNESS Blood Pressure : / mmHG Vent. Rate : 102 BPM Atrial Rate : 102 BPM P-R Int : 194 ms QRS Dur : 064 ms QT Int : 356 ms P-R-T Axes : 034 -06 011 degrees QTc Int : 463 ms Sinus tachycardia Possible Left atrial enlargement Borderline ECG Confirmed by GERSON COVINGTON, SKY ([id number]), editor city ULICES ZHANG ([id number]) on 12/28/2020 8:51:44 AM Referred By: ANA Confirmed By:SKY NIETO MD
[2020-12-25 10:07] LABS: Absolute Lymphocyte Count 1.17 X10^3/uL (0.83-4.51); Basophil# 0.15 X10^3/uL; Basophil% 1.4 % (0-1); Eosinophil# 0.48 X10^3/uL; Eosinophils% 4.5 % (0-5); Hematocrit 41.5 % (40-54); Hemoglobin 12.9 g/dL (13.0-16.5); Lymphocyte # 1.17 X10^3/ul (4.0); Mean Corp Hgb Conc 31.1 g/dL (32-36); Mean Corpuscular Hgb 27.5 pg (27.0-32.0); Mean Corpuscular Volume 88.5 fL (80-94); Mean Platelet Vol. 10.5 fl (6.2-12.0); Monocyte# 0.79 X10^3/uL; Monocyte% 7.4 % (0-10); NRBC Flagged by Analyzer 0 % (0-5); Neutrophil # 8.02 X10^3/uL (2.7-7.7); Neutrophil % 75.4 % (47-70); Platelet Count 277 K/mm3 (150-450); RBC Distribution Width CV 13.7 % (11.6-14.6); RBC Distribution Width SD 43.8 fl (35.1-43.9); Red Blood Count 4.69 M/mm3 (4.6-6.2); White Blood Count 10.6 K/mm3 (4.4-11.0)
--- NOTE | 2020-12-25 10:11 | RAD_ITS ---
STUDY: X-RAY CHEST REASON FOR EXAM: Male, 65 years old. weakness, bedbound from a previous stroke TECHNIQUE: Single AP portable view of the chest. COMPARISON: 05/11/2020. FINDINGS: The lungs are clear and expanded. There is no demonstrated pleural abnormality. Normal size heart. Normal mediastinum and riley. Normal visualized pulmonary arteries. Normal visualized aortic arch and descending thoracic aorta. Normal visualized thoracic spine. Normal visualized ribs, clavicles, and shoulders. There is no demonstrated abnormality of the visualized soft tissue structures of the upper abdomen. RAD/Chest 1 View (Portable) IMPRESSION: Normal x-ray examination of the chest. Electronically Signed: Zay Joshua MD at 10:25 EDT , Service support ,
[2020-12-25 10:20] LABS: Partial Thromboplast Time 30.6 Seconds (24.1-36.2)
[2020-12-25 10:36] LABS: International Normalized Ratio 1.1; Prothrombin Time (Protime)PT. 14.1 SECONDS (11.7-14.9)
[2020-12-25 10:52] LABS: ALB/GLOB Ratio 0.8 RATIO (0.9-2.4); AST(SGOT) 19 U/L (15-37); Alanine Aminotransfer ALT/SGPT 29 U/L (16-61); Albumin, Serum 3.4 g/dL (3.2-5.0); Alkaline Phosphatase 119 U/L (45-117); Anion Gap 5 (5-15); BUN 17 mg/dL (7-18); BUN/Creat Ratio 11.6 RATIO (10-20); Calcium,Total 9.6 mg/dL (8.5-10.1); Chloride 106 mmol/L (98-107); Creatinine, Serum 1.46 mg/dL (0.70-1.30); EST Glomerular Filtration Rate 51 mL/min (>60); Est Glom Filt Rate - Afr Amer 62 mL/min (>60); Estimated Creatinine Clearance 49.77 ml/min; Globulin 4.5 g/dL (2.2-4.2); Glucose 104 mg/dL (74-106); Lipase 183 U/L (73-393); Potassium 3.7 mmol/L (3.5-5.1); Protein, Total 7.9 g/dL (6.4-8.2); Sodium Level 141 mmol/L (136-145)
--- NOTE | 2020-12-25 11:35 | ED.DCSUM_ITS ---
History of Present Illness Chief Complaint: Weakness Informant: Patient, Significant Other Narrative: 65-year-old male with a prior history of stroke with paralysis. He was originally being cared for at his home. They had physical therapy coming in but that is no longer the case. His significant other has been able to care for him by using a weight belt but eventually it was started to get too much for her so she has him on a wait list for a fdc where he is currently #7. [address] ates that yesterday he began to bend his knees up but she is not sure why but he will not straighten them out and this is preventing her from being able to lift him and to keep them clean and changed. She states that she simply cannot keep caring for him at home this way in addition to her elderly mother. - Past Medical History (1) Dysphagia Status: Chronic (2) Urinary incontinence Status: Chronic (3) BPH (benign prostatic hyperplasia) Status: Chronic (4) Fatty liver Status: Chronic (5) History of hemorrhagic stroke with residual hemiparesis Status: Chronic (6) Hyperlipidemia Status: Chronic (7) Mixed aphasia Status: Chronic (8) Right hemiparesis Status: Chronic (9) Seizure disorder Status: Chronic (10) Stroke Status: Chronic Past Medical History - Allergies and Home Meds Allergies/Adverse Reactions: Allergies Iodinated Contrast Media [CONTRASTS] Allergy (Verified 12/25/20 09:39) Hives Penicillins Allergy (Verified 12/25/20 09:43) NEEDS FOLLOW-UP Primary Care Physician: Zaid Booker Chi, MD [Primary Care Provider] - Surgical History: no surgical history Lives: Spouse/ Significant Other Smoking Status: Former smoker Drugs: None - Family History Maternal Family History: Reports: No pertinent history Paternal Family History: Reports: No pertinent history Review of Systems General: Denies: Chills, Fever, Sweats Eyes: Denies: Visual changes - bilaterally, Diplopia ENT: Denies: Rhinorrhea, Sore throat Cardiovascular: Denies: Chest pain, Palpitations Respiratory: Denies: Dyspnea, Cough, Dyspnea on exertion Gastrointestinal: Denies: Abdominal pain, Nausea, Vomiting, Diarrhea, Melena, Hematochezia Genitourinary: Denies: Dysuria, Hematuria, Frequency Musculoskeletal: Denies: Back pain, Extremity Pain Skin: Denies: Rash, Wounds Neurological: Denies: Headache, Weakness, Numbness Physical Exam Vital Signs/Narrative: Vital Signs Temp Pulse Resp BP Pulse Ox 12/25/20 09:39 98.2 F 87 18 176/116 H 96 Inital Vital Signs reviewed: Yes General: Well nourished, Well developed, No Acute Distress, - - Says no to if he is having any pain. Head: Normocephalic, Atraumatic Eyes: Perrl, EOMI ENT: Moist mucous membranes, No rhinorrhea Neck: Supple, Nontender Cardiovascular: Regular rate, Regular rhythm, No murmurs Respiratory: No distress, CTA bilaterally, Chest nontender Abdomen: Soft, Nontender, Nondistended, Normal bowel sounds Back: Nontender, Normal Inspection Extremities: Nontender, No edema, - - Patient's knees are bent Skin: Normal color, No rash, Trauma - Is an early stage I pressure sore on the right buttock. Neurological: Alert Diagnostic/Tx/Re-eval - Medical Decision Making Do not know what the significance of the bent knee uses. I do not see any outward signs of trauma or deformity. He does not appear to be in any pain. His vital signs are normal. Basic blood work and chest x-ray is negative. I had social work visit with the patient and his significant other. Our plan is to admit him. Based on his health insurance he requires a precertification and she is unable to care for him at home we will admit him for placement. ED Disposition - Plan for ED Patient: Disposition: Acute Care Hospital [facility] Diagnosis: Right hemiparesis, Failure to thrive Referrals: Zaid Booker Chi, MD [Primary Care Provider] -
[2020-12-25 11:57] LABS: Bacteria 0 SEEN /hpf (None Seen); Color, Urine Yellow (Yellow); Glucose, Dipstick Normal (Normal); Ketone-Dipstick Negative (Negative); Leukocyte Esterase-Dipstick Negative /ul (Negative); Mucous, Urine 0 SEEN /hpf (<or=2+); Nitrite-Dipstick Negative (Negative); Occult Blood-Urine 25 /ul (Negative); Protein-Dipstick 100 mg/dl (Negative); Red Blood Cells-Urine 0 SEEN /hpf (0-5); Squamous Epithelial Cells - UA 0 SEEN /hpf (0-5); Urine Bilirubin Dipstick Negative (Negative); Urine Clarity Clear (Clear); Urine Urobilinogen Normal (Normal); White Blood Cells 0 SEEN /hpf (0-5)
--- NOTE | 2020-12-25 12:55 | HP.PCM_ITS ---
Problem List (1) History of hemorrhagic stroke with residual hemiparesis Status: Chronic (2) Debility Status: Acute (3) Encephalopathy Status: Chronic (4) Mixed aphasia Status: Chronic (5) Dysphagia Status: Chronic (6) Urinary incontinence Status: Chronic (7) Hospital-acquired pneumonia Status: Inactive (8) Stroke Status: Chronic (9) Right hemiparesis Status: Chronic (10) Seizure disorder Status: Chronic (11) Hyperlipidemia Status: Chronic (12) BPH (benign prostatic hyperplasia) Status: Chronic (13) Fatty liver Status: Chronic (14) MRSA bacteremia Status: Acute (15) Failure to thrive Status: Acute History of Present Illness Date of Admission: 12/25/20 Chief Complaint: weakness The patient is a 65 year old M 3 of 2 strokes that left him dependent in his ADLs. Patient has a right upper extremity hemiparesis. At baseline, patient is very dependent but able to stand with some assistance so that he can be transferred. These transfers are very brief but patient is able to engage. Today, the patient started flexing his legs and was unable to help with transfer and the patient significant other was unable to adequately help him. EMS was contacted and patient was sent to the emergency room. In the emergency room, patient underwent work-up that was unremarkable. Patient's legs are contracted. He is a very poor historian so his history is obtained through the emergency room physician as well as patient's significant other at bedside. She just is not able to help the patient and requesting detention facility for the patient go to a detention which he is currently #7 on the wait list. [] Past Medical History Past Medical History (Chronic Problems): Chronic Problems History of hemorrhagic stroke with residual hemiparesis (Chronic) Encephalopathy (Chronic) Mixed aphasia (Chronic) Dysphagia (Chronic) Urinary incontinence (Chronic) Stroke (Chronic) Right hemiparesis (Chronic) Seizure disorder (Chronic) Hyperlipidemia (Chronic) BPH (benign prostatic hyperplasia) (Chronic) Fatty liver (Chronic) Allergies Iodinated Contrast Media [CONTRASTS] Allergy (Verified 12/25/20 09:39) Hives Penicillins Allergy (Verified 12/25/20 09:43) NEEDS FOLLOW-UP Home Medications: Ambulatory Orders Medication Instructions Recorded Acetaminophen [Tylenol Tablet] 650 mg PO Q4H PRN PRN tab 05/24/20 Aspirin [Aspirin, Baby] 81 mg PO DAILY@0800 tab.chew 05/24/20 Atorvastatin Calcium [Lipitor] 80 mg PO QHS tab 05/24/20 Bacitracin Ointment 1 applic TOPICAL BID PRN PRN tube 05/24/20 Menthol/Lanolin/Calamine/Znox 1 applic TOPICAL TID tube 05/24/20 [Calmoseptine Ointment] Nystatin Powder [Mycostatin Powder] 1 applic TOPICAL 0600,2200 bottle 05/24/20 Polyethylene Glycol 3350 [Miralax] 17 gm PO BID packet 05/24/20 Potassium Chloride Oral Tablet 40 meq PO BIDCM tab 05/24/20 [K-Dur] Senna/Docusate Sodium [Senokot-S] 2 tab PO BID tab 05/24/20 Tamsulosin HCl [Flomax] 0.4 mg PO DAILY@1730 cap 05/24/20 levETIRAcetam tablet [Keppra 1,000 mg PO BID tab 05/24/20 tablet] Surgical History: no surgical history Psychiatric History: No pertinent psych hx Lives: Spouse/ Significant Other Smoking Status: Former smoker Drugs: None - *Family History Maternal History Items: No pertinent history, - - Unable to obtain Paternal History Items: No pertinent history Review of Systems Unable to obtain accurate/complete ROS d/t: Confusion and minimal verbal response VTE Information - Inpt Only VTE Present on Admission: No VTE Mechan Device Prophylaxis: None VTE Pharm Prophylaxis ordered?: No Patient Problems: Active and Suspected Problems Debility (Acute) MRSA bacteremia (Acute) Failure to thrive (Acute) - Physical Exam Vitals/I&O's: Vital Signs Temp Pulse Resp BP Pulse Ox 37.0 C 91 18 157/120 H 96 12/25/20 12:21 12/25/20 11:51 12/25/20 11:51 12/25/20 11:51 12/25/20 11:51 Oxygen Delivery Method Room Air Weight: 70.7 kg Body Mass Index (BMI) 22.4 Finger Stick Blood Glucose 111 General: - - Awake. Confused. Afebrile. When attempting to move his legs, he does yell out at times but stops when he is distracted. HEENT: Atraumatic, - - Unable to adequately visualize his eyes and his pupils to the fact that he quickly would light shined in there. Oral: Moist Mucosa, No Gingival or Mucosal Lesions/ Ulcerations Neck: No Nodes, Thyroid Normal Size and Texture Lungs: Clear to auscultation, Normal air movement, No rhonchi, No wheeze, No rales Cardiovascular: Regular rate, Regular Rhythm, Normal S1, Normal S2, No murmurs Abdomen: Bowel Sounds Present, Soft, Non Tender, Non-Distended, No Hepato- splenomegaly Extremities: No edema, No Calf Tenderness Skin: No rashes, No breakdown Musculoskeletal: Cachexia, Muscle Wasting Neurological: - - Both legs are flexed and bent towards the left. Able to move his left lower extremity passively with full range of motion and without any issues and patient kneeling. Patient has reticence to straighten out his right leg and is very resistant to that. When palpating his left quadriceps, patient c Psych/Mental Status: Normal Affect, Appropriate Laboratory Results 12/25/20 09:57: WBC 10.6, RBC 4.69, Hgb 12.9 L, Hct 41.5, MCV 88.5, MCH 27.5, MCHC 31.1 L, RDW Std Deviation 43.8, RDW Coeff of Shazia 13.7, Plt Count 277, MPV 10.5, Immature Gran % (Auto) 0.300, Neut % (Auto) 75.4 H, Lymph % (Auto) 11.0 L, [place] % (Auto) 7.4, Eos % (Auto) 4.5, Baso % (Auto) 1.4 H, Absolute Neuts (auto) 8.0 H, Absolute Lymphs (auto) 1.17, Nucleated RBC % 0 12/25/20 09:57: PT 14.1, INR 1.1, APTT 30.6 12/25/20 09:57: Sodium 141, Potassium 3.7, Chloride 106, Carbon Dioxide 30.0, Anion Gap 5, BUN 17, Creatinine 1.46 H, Estim Creat Clear Calc 49.77, Est GFR (MDRD) Af Amer 62, Est GFR (MDRD) Non-Af 51 L, BUN/Creatinine Ratio 11.6, Glucose 104, Calcium 9.6, Total Bilirubin 0.70, AST 19, ALT 29, Alkaline Phosphatase 119 H, Total Protein 7.9, Albumin 3.4, Globulin 4.5 H, Albumin/Globulin Ratio 0.8 L, Lipase 183 03/20/21 11:45: Urine Color Yellow, Urine Clarity Clear, Urine pH 6.0, Ur Specific [place] 1.020, Urine Protein 100 H, Urine Glucose (UA) Normal, Urine Ketones Negative, Urine Occult Blood 25 H, Urine Nitrite Negative, Urine Bilirubin Negative, Urine Urobilinogen Normal, Ur Leukocyte Esterase Negative, Urine RBC 0 SEEN, Urine WBC 0 SEEN, Ur Squamous Epith Cells 0 SEEN, Urine Bacteria 0 SEEN, Urine Mucus 0 SEEN Assessment/Plan All Active Problems Debility (Acute) MRSA bacteremia (Acute) Failure to thrive (Acute) 1. Debility Patient has a very poor performance status at baseline, Karnofsky score of 40. Plan: PT OT evaluate and treat patient will need precertification again to a detention facility as the patient's significant other is unable to adequately care for him. 2. Leg pain Very nonspecific and unfortunate patient is a very poor historian is very difficult to localize what his issues are. What I can discern as the patient is not flexing his legs due to abdominal pain his abdominal exam is unremarkable. Could be spasm but given his profound dementia, would avoid any kind of muscle relaxants at this time. Supportive management. As needed acetaminophen. Patient has not had any falls recently so not feel that x-rays are indicated at this point in time. 3. History of stroke and seizures Patient developed seizures after stroke Continue with aspirin and levetiracetam states that he is on a regular diet but has to have his medications crushed in order to take them. 4. Protein malnutrition Patient is on a regular diet at home Consult nutrition for further recommendations 5. VTE prophylaxis: Not indicated given observation status 6. Advanced care planning: Discussed with the patient's significant other. Patient is DNR Comfort Care arrest with intubation if necessary. OBSV E&M: [id number] Initial observation care L2
--- NOTE | 2020-12-25 14:24 | NURSING ---
jesse not available for 1400 dose
[2020-12-25] MEDS: Menthol/Lanolin/Calamine/Znox 113 GM Tube 1 APPLIC TOPICAL ×2 (15:36→21:24)
[2020-12-25] MEDS: Potassium Chloride Oral Tablet 20 MEQ 40 MEQ PO (15:37)
[2020-12-25] MEDS: Tamsulosin HCl 0.4 MG Capsule PO (15:37)
[2020-12-25] MEDS: levETIRAcetam 1,000 MG Tablet 1000 MG PO ×2 (15:38→21:24)
[2020-12-25] MEDS: Aspirin 81 MG TAB.CHEW PO (15:38)
--- NOTE | 2020-12-25 17:46 | CM.ED ---
SOCIAL WORK Referral Source: Dr. Morales Reason for Consult: Discharge Planning Informed by Dr. Morales patient's unable to continue care for patient in the home. Patient with history of CVA's, most recent being March 2020. Met with patient and in room. Introduced role and reason for referral. states patient will say yes or no, but gets them mixed up. states has been able to care for patient in the home, however, patient has began bending his legs and will not move from that position. reports it is difficult for her to lift patient and assist with care. believes [facility] and if with therapy patient able to stand and pivot would take patient back home. reports patient is on wait list with [facility]. provided with lists of SNF's for [facility]. requesting referral to [facility] as first choice and [facility] has second choice. Informed konrad TONY will follow up on Sunday. Plan: Admit Daniel Perdomo, SUPPORT SERVICES SPECIALIST, CLINICAL DIETITIAN
[2020-12-25] MEDS: Nystatin Powder 15gm Bottle 1 APPLIC TOPICAL (21:24)
[2020-12-25] MEDS: Polyethylene Glycol 3350 17 GM PACKET PO (21:24)
[2020-12-25] MEDS: Atorvastatin Calcium 80 MG Tablet PO (21:24)
[2020-12-25] MEDS: Senna/Docusate Sodium 1 Tablet 2 TABLET PO (21:24)
[2020-12-26 03:00] VITALS: BP 154/107; PULSE 97; RESP 16; TEMP 36.3; O2SAT 96
[2020-12-26] MEDS: Menthol/Lanolin/Calamine/Znox 113 GM Tube 1 APPLIC TOPICAL ×3 (06:43→21:07)
[2020-12-26] MEDS: Nystatin Powder 15gm Bottle 1 APPLIC TOPICAL ×2 (06:44→21:08)
[2020-12-26] MEDS: Potassium Chloride Oral Tablet 20 MEQ 40 MEQ PO ×2 (07:37→16:24)
[2020-12-26] MEDS: Aspirin 81 MG TAB.CHEW PO (07:37)
[2020-12-26 09:00] VITALS: BP 149/110; PULSE 88; RESP 18; TEMP 36.6; O2SAT 97
[2020-12-26] MEDS: levETIRAcetam 1,000 MG Tablet 1000 MG PO ×2 (09:13→21:08)
--- NOTE | 2020-12-26 09:43 | RAD_ITS ---
INDICATION: bilateral hip pain, patient is non verbal, non communicative, limited ROM EXAMINATION/TECHNIQUE: X-RAY - BILATERAL XR Hips Bilateral with Pelvis when performed; 2 Views COMPARISON: None. FINDINGS: PELVIC BONES: No displaced fracture, destructive or sclerotic lesions. Note that overlapping bowel shadows may however obscure fine detail. Sacroiliac joints are unremarkable. No widening of the pubic symphysis. HIPS: The articular structures are unremarkable. No displaced fracture seen in this frontal view. SOFT TISSUES: No soft tissue swelling or gas. RAD/Hips B/L min 2 views w/ Pelvis IMPRESSION: No evidence of displaced pelvic or hip fracture. Electronically Signed: Mane Luna MD at 10:50 EDT Tel , Service support ,
--- NOTE | 2020-12-26 09:43 | RAD_ITS ---
INDICATION: abdominal pain EXAMINATION/TECHNIQUE: X-RAY - XR Abdomen 1 View COMPARISON: 05/14/2020 FINDINGS: BOWEL GAS PATTERN: Non-obstructive. No bowel or stomach distention. Moderate fecal retention. FREE AIR: Not assessed on a single supine view. ORGANOMEGALY: Not seen. CALCIFICATIONS: No abnormal calcifications observed. LOWER CHEST: No acute pathology. BONES AND SOFT TISSUES: No acute pathology. RAD/Abdomen Single View IMPRESSION: Non-obstructive bowel gas pattern. Moderate fecal retention. Electronically Signed: Zay Joshua MD at 10:27 EDT , Service support ,
--- NOTE | 2020-12-26 09:44 | PN_ITS ---
Patient Problems: Active and Suspected Problems Debility (Acute) MRSA bacteremia (Acute) Failure to thrive (Acute) Subjective: Still with his legs contracted. Patient confused unable provide any history. Vitals/I&O's: Vital Signs Temp Pulse Resp BP Pulse Ox 36.3 C L 97 16 154/107 H 96 12/26/20 03:00 12/26/20 03:00 12/26/20 03:00 12/26/20 03:00 12/26/20 03:00 Oxygen Delivery Method Room Air Weight: 69 kg Body Mass Index (BMI) 21.7 Finger Stick Blood Glucose 111 Intake and Output for Last 24 Hours 12/24/20 12/25/20 12/26/20 23:59 23:59 23:59 Intake Total 500 / 500 350 / 350 Balance 500 / 500 350 / 350 General: - - Awake. Nonverbal. Begins moaning when I extend his legs. HEENT: Atraumatic, Normocephalic Neck: No Nodes, Thyroid Normal Size and Texture Lungs: Clear to auscultation, Normal air movement, No rhonchi, No wheeze Cardiovascular: Regular rate, Regular Rhythm, Normal S1, Normal S2, No murmurs Abdomen: Bowel Sounds Present, Soft, Non Tender, Non-Distended, No Hepato- splenomegaly Extremities: No edema, No Calf Tenderness Skin: No rashes, No breakdown Musculoskeletal: Cachexia, Muscle Wasting, - - Patient very resistant to extending his legs but his legs are more midline and whereas yesterday they were leaning towards the left. Laboratory Results 12/25/20 09:57: WBC 10.6, RBC 4.69, Hgb 12.9 L, Hct 41.5, MCV 88.5, MCH 27.5, MCHC 31.1 L, RDW Std Deviation 43.8, RDW Coeff of Shazia 13.7, Plt Count 277, MPV 10.5, Immature Gran % (Auto) 0.300, Neut % (Auto) 75.4 H, Lymph % (Auto) 11.0 L, [place] % (Auto) 7.4, Eos % (Auto) 4.5, Baso % (Auto) 1.4 H, Absolute Neuts (auto) 8.0 H, Absolute Lymphs (auto) 1.17, Nucleated RBC % 0 12/25/20 09:57: PT 14.1, INR 1.1, APTT 30.6 12/25/20 09:57: Sodium 141, Potassium 3.7, Chloride 106, Carbon Dioxide 30.0, Anion Gap 5, BUN 17, Creatinine 1.46 H, Estim Creat Clear Calc 49.77, Est GFR (MDRD) Af Amer 62, Est GFR (MDRD) Non-Af 51 L, BUN/Creatinine Ratio 11.6, Glucose 104, Calcium 9.6, Total Bilirubin 0.70, AST 19, ALT 29, Alkaline Phosphatase 119 H, Total Protein 7.9, Albumin 3.4, Globulin 4.5 H, Albumin/Globulin Ratio 0.8 L, Lipase 183 12/25/20 11:45: Urine Color Yellow, Urine Clarity Clear, Urine pH 6.0, Ur Specific Walker 1.020, Urine Protein 100 H, Urine Glucose (UA) Normal, Urine Ketones Negative, Urine Occult Blood 25 H, Urine Nitrite Negative, Urine Bilirubin Negative, Urine Urobilinogen Normal, Ur Leukocyte Esterase Negative, Urine RBC 0 SEEN, Urine WBC 0 SEEN, Ur Squamous Epith Cells 0 SEEN, Urine Bacteria 0 SEEN, Urine Mucus 0 SEEN Current Medications Acetaminophen (Acetaminophen 325 Mg Tablet) 650 mg PO Q4H PRN PRN PRN Reason: Pain Score 1-10 Aspirin (Aspirin 81 Mg Tab.Chew) 81 mg PO DAILY@0800 [facility] Last Admin: 12/26/20 07:37 Dose: 81 mg Documented by: Atorvastatin Calcium (Atorvastatin Calcium 80 Mg Tablet) 80 mg PO QHS [facility] Last Admin: 12/25/20 21:24 Dose: 80 mg Documented by: Bacitracin (Bacitracin 15 Gm Tube) 1 applic TOPICAL BID PRN PRN; Protocol PRN Reason: redness Calamine/Phenol (Menthol/Lanolin/Calamine/Znox 113 Gm Tube) 1 applic TOPICAL TID [facility]; Protocol Last Admin: 12/26/20 06:43 Dose: 1 applic Documented by: Levetiracetam (Levetiracetam 1,000 Mg Tablet) 1,000 mg PO BID [facility] Last Admin: 12/26/20 09:13 Dose: 1,000 mg Documented by: Nystatin (Nystatin Powder 15gm Bottle) 1 applic TOPICAL 0600,2200 [facility]; Protocol Last Admin: 12/26/20 06:44 Dose: 1 applic Documented by: Polyethylene Glycol (Polyethylene Glycol 3350 17 Gm Packet) 17 gm PO BID [facility] Last Admin: 12/26/20 09:14 Dose: Not Given Documented by: Potassium Chloride (Potassium Chloride Oral Tablet 20 Meq) 40 meq PO BIDCM [facility] Last Admin: 12/26/20 07:37 Dose: 40 meq Documented by: Senna/Docusate Sodium (Senna/Docusate Sodium 1 Tablet) 2 tablet PO BID [facility] Last Admin: 12/26/20 09:14 Dose: Not Given Documented by: Sodium Chloride (0.9% Saline Lock 10 Ml Syringe) 10 - 40 ml IV UD PRN PRN Reason: SALINE FLUSH Tamsulosin HCl (Tamsulosin Hcl 0.4 Mg Capsule) 0.4 mg PO DAILY@1730 [facility] Last Admin: 12/25/20 15:37 Dose: 0.4 mg Documented by: Medical Necessity - Tobacco Use Smoking Status: Former smoker Assessment/Plan All Active Problems Debility (Acute) MRSA bacteremia (Acute) Failure to thrive (Acute) Six 5-year-old male who has had a history of 2 strokes and is essentially dependent on his ADLs by his significant other. On the , began flexing his legs and the patient's significant other could not stand him up to transition to pivot to chair and out of bed because of this and patient was brought in the hospital. Patient is unable to write any history. 1. Debility Patient has a very poor performance status at baseline, Karnofsky score of 40. Plan: PT OT evaluate and treat patient will need precertification again to a [facility] facility as the patient's significant other is unable to adequately care for him. 2. Leg pain Very nonspecific and unfortunate patient is a very poor historian is very difficult to localize what his issues are. What I can discern as the patient is not flexing his legs due to abdominal pain his abdominal exam is unremarkable. Could be spasm but given his profound dementia, would avoid any kind of muscle relaxants at this time. Supportive management. As needed acetaminophen. Plan: Given the etiology of him alona his legs and his resistance to extending his legs will order hip x-rays, even though patient has not fallen, according to his significant other, and abdominal x-ray to make sure that is not bending his legs due to some intra-abdominal issue though his abdominal exam is unremarkable. 3. History of stroke and seizures Patient developed seizures after stroke Continue with aspirin and levetiracetam states that he is on a regular diet but has to have his medications crushed in order to take them. 4. Protein malnutrition Patient is on a regular diet at home Consult nutrition for further recommendations 5. VTE prophylaxis: Not indicated given observation status 6. Advanced care planning: Discussed with the patient's significant other on the . Patient is DNR Comfort Care arrest with intubation if necessary. Inpatient E&M: 79311 Subs Hosp L2
--- NOTE | 2020-12-26 10:26 | NURSING ---
to x ray and back via bed
[2020-12-26] MEDS: Bisacodyl 5 MG Tablet 10 MG PO (14:06)
--- NOTE | 2020-12-26 15:06 | PCM.NTREPORT ---
Nutrition Therapy Report - History Nutrition Services has been consulted to:: Manage nutrient details of diet order Current diet / nutrition support order:: Regular diet--mech (minced/moist) and thin liquids; nonselect. 240 ml sasha ensure enlive TID w/ meals - Anthropometric Measurements Height:: 5 ft 10 in Weight:: 69 kg Body Mass Index (BMI):: 21.8 - Relevant Labs Relevant Labs:: Hgb 12.9 g/dL (13.0-16.5) L 12/25/20 09:57 MCHC 31.1 g/dL (32-36) L 12/25/20 09:57 Neut % (Auto) 75.4 % (47-70) H 12/25/20 09:57 Lymph % (Auto) 11.0 % (19-41) L 12/25/20 09:57 Baso % (Auto) 1.4 % (0-1) H 12/25/20 09:57 Absolute Neuts (auto) 8.0 X10^3/uL (2.0-7.7) H 12/25/20 09:57 Creatinine 1.46 mg/dL (0.70-1.30) H 12/25/20 09:57 Est GFR (MDRD) Non-Af 51 mL/min (>60) L 12/25/20 09:57 Alkaline Phosphatase 119 U/L (45-117) H 12/25/20 09:57 Globulin 4.5 g/dL (2.2-4.2) H 12/25/20 09:57 Albumin/Globulin Ratio 0.8 RATIO (0.9-2.4) L 12/25/20 09:57 - Assessment Food / Nutrition-Related History:: PO at meals overall poor/inadequate per PETE Barnett. ~25-50% noted and pt receiving ensure enlive TID w/ meals as well with moderate acceptance. Per EMR wt about 6-7 months ago was 77 Kg; calculated~10-11% wt loss which is significant for malnutrition in addition to compromised intake at meals. Unable to complete NFPA due to contracted legs/confusion. - Nutrition Diagnosis Problem / Etiology / Signs & Symptoms (PES):: Severe pro/roland malnutrition in the context of chronic disease related to dysphagia and inadequate oral intake as evidenced by ~10-11% wt loss x past 6 months, less than 50% PO at meals and meeting less than 50% estimated nutrition needs for pro/roland x past 4-6 months. Evidence of Malnutrition Exists:: Yes Severe PCM:: Chronic Illness - Nutrition Intervention Nutrition Prescription:: Estimated nutrition needs~0152-6814 kcal (25 kcal +250 kcal for gradual energy repletion) and ~80-90 gm pro (1.2-1.3 gm pro/Kg) per day. Estimated fluid needs~0209-2479 ml/day (30 ml/Kg). - Food / Nutrient Delivery Interventions Summary of nutrition intervention:: Will offer varied ONS to better assess for best acceptance and tolerance--240 ml ensure clear w/ breakfast, ensure pudding w/ lunch, magic cup w/ dinner as well as 120 ml ensure enlive 4 times per day w/ medpass. ONS will provide additional 1400 kcal and 61 gm protein per day. May need to consider TF support if PO and wt continue to decline. Will monitor PO, wt, labs and follow-up. Nutrition education provided?: No - MNT Monitoring Further MNT monitoring and evaluation required?: Yes MNT Follow-up in:: 3-5 days
[2020-12-26 15:08] VITALS: BMI 21.8
[2020-12-26] MEDS: Tamsulosin HCl 0.4 MG Capsule PO (16:26)
--- NOTE | 2020-12-26 18:23 | NURSING ---
although pt turned and positioned often, pt frequently pulls linens, pillow and clothes and throws them onto floor, also will put kleenex in his mouth and throw drinks onto floor-offerred water to drink on rounds every hour today
[2020-12-26] MEDS: Polyethylene Glycol 3350 17 GM PACKET PO (21:08)
[2020-12-26] MEDS: Atorvastatin Calcium 80 MG Tablet PO (21:08)
[2020-12-26] MEDS: Senna/Docusate Sodium 1 Tablet 2 TABLET PO (21:08)
[2020-12-26 21:31] VITALS: BP 141/94; PULSE 84; RESP 16; TEMP 36.8; O2SAT 96
[2020-12-27 03:31] VITALS: BP 123/75; PULSE 69; RESP 16; TEMP 36.6; O2SAT 97
[2020-12-27] MEDS: Nystatin Powder 15gm Bottle 1 APPLIC TOPICAL ×2 (05:36→22:23)
[2020-12-27] MEDS: Menthol/Lanolin/Calamine/Znox 113 GM Tube 1 APPLIC TOPICAL ×3 (05:36→22:24)
[2020-12-27 09:15] VITALS: BP 132/91; PULSE 71; RESP 16; TEMP 36.6; O2SAT 97
[2020-12-27] MEDS: Potassium Chloride Oral Tablet 20 MEQ 40 MEQ PO ×2 (09:19→17:45)
[2020-12-27] MEDS: Polyethylene Glycol 3350 17 GM PACKET PO ×2 (09:19→22:23)
[2020-12-27] MEDS: Senna/Docusate Sodium 1 Tablet 2 TABLET PO ×2 (09:19→22:23)
[2020-12-27] MEDS: Aspirin 81 MG TAB.CHEW PO (09:22)
--- NOTE | 2020-12-27 09:34 | CASEMGMT ---
Social Work Note SW received referral for SNF placement. First choice is [facility], second choice is [facility] SW placed a call to Payton at [facility], [facility] is not in network with pt's insurance. SW placed a call to Cyndy at [facility] and left message regarding referral. SW faxed referral. Plan: [facility] pending acceptance and pre-cert Ayse Doss BALANCE SCREWHEAD POLISHER, QUALITY ASSURANCE INTERN
[2020-12-27] MEDS: levETIRAcetam 1,000 MG Tablet 1000 MG PO ×2 (11:30→22:23)
--- NOTE | 2020-12-27 12:52 | CASEMGMT ---
PETE MADSEN called Greer Lian to discuss WILLARD form as pt unable to sign. PETE MADSEN explained WILLARD form, Greer voiced understanding. Greer gave verbal consent for signature of WILLARD form. Filed and placed copy in pt folder. Greer had no further questions or concerns at this time. Ayse JIMENEZ verified consent.
--- NOTE | 2020-12-27 14:26 | CHAPLAIN ---
Type of Pastoral Visit _x__ Initial Visit ___ Follow-up Visit ___ On-call Visit ___ General Patient Visit ___ Spiritual Assessment ___ Family Conference ___ Bereavement ___ Rapid Response ___ Code Blue ___ Other (describe below) Pastoral Care Referral From _x__ Patient ___ Family ___ Nurse ___ Physician ___ Mercantile Reporter ___ Merchandiser Seasonal ___ Other (describe below) Sacrament/Intervention ___ Active listening ___ Anointing ___ Orthodoxy ___ Bereavement ___ Communion ___ Ynes exploration ___ ___ Life review _x__ Prayer ___ Reconciliation ___ Sacrament of Sick _x__ Supportive presence ___ Wedding ___ Other (describe below) Pastoral Comments patient is very slow to speak and he communicates more by pointing and by one word answers; this automation technologist sat at bedside and gave conversation and a few questions to see if pt would interact of speak; pt did attempt to talk but he could not find the words to speak out loud; pt indicates he is cold and so his fan is turned off; pt points to hallway and a call to nurses/aide made; aide will come to check on pt
--- NOTE | 2020-12-27 14:35 | PCM.PN.HOSP ---
Patient Problems: Active and Suspected Problems Debility (Acute) MRSA bacteremia (Acute) Failure to thrive (Acute) Subjective: Patient is nonverbal and has little reaction. No issues reported overnight by nursing staff. Does have issues intermittently with behavior. Vitals/I&O's: Vital Signs Temp Pulse Resp BP Pulse Ox 97.8 F 71 16 132/91 H 97 12/27/20 09:15 12/27/20 09:15 12/27/20 09:15 12/27/20 09:15 12/27/20 09:15 Oxygen Delivery Method Room Air Weight: 69 kg Body Mass Index (BMI) 21.8 Finger Stick Blood Glucose 111 Intake and Output for Last 24 Hours 12/25/20 12/26/20 12/27/20 23:59 23:59 23:59 Intake Total 500 / 500 1300 / 1500 760 / 760 Balance 500 / 500 1300 / 1500 760 / 760 General: Alert, No apparent distress, Well developed, Well nourished, - - Middle-aged white male lying in bed, awake but does not interact, no current behavioral issues HEENT: Atraumatic, Normocephalic, EAC Clear, - - Patient opens right eye but when I attempt to further evaluate bilateral eyes patient closes eyes tight and will not allow for evaluation Oral: - - Patient will not participate in opening mouth for evaluation Neck: Supple, No JVD, Negative Carotid Bruits, No Nodes, Trachea Midline, Thyroid Normal Size and Texture Lungs: Clear to auscultation, Normal air movement, No rhonchi, No wheeze, No rales Cardiovascular: Regular rate, Regular Rhythm, Normal S1, Normal S2, No murmurs, No Ectopic Activity, No rub noted, No Gallop Abdomen: Bowel Sounds Present, Soft, Non Tender, Non-Distended, No hernias noted Extremities: No clubbing, No cyanosis, No edema, Capillary Refill Less than 3 Seconds, Peripheral Pulses Normal Skin: No rashes, No breakdown Musculoskeletal: No Tenderness to Palpation of Joints or Extremities, No Muscle Wasting, Arthritic Changes Lymphatic: No Cervical, Supraclavicular, or Inguinal Adenopathy Neurological: - - She will not participate with full neuro exam, patient appears mildly contracted bilateral lower extremities, 3+ bilateral upper and lower extremity reflexes Psych/Mental Status: - - No meaningful interaction Current Medications Acetaminophen (Acetaminophen 325 Mg Tablet) 650 mg PO Q4H PRN PRN PRN Reason: Pain Score 1-10 Aspirin (Aspirin 81 Mg Tab.Chew) 81 mg PO DAILY@0800 [facility] Last Admin: 12/27/20 09:22 Dose: 81 mg Documented by: Atorvastatin Calcium (Atorvastatin Calcium 80 Mg Tablet) 80 mg PO QHS [facility] Last Admin: 12/26/20 21:08 Dose: 80 mg Documented by: Bacitracin (Bacitracin 15 Gm Tube) 1 applic TOPICAL BID PRN PRN; Protocol PRN Reason: redness Bisacodyl (Bisacodyl 5 Mg Tablet) 5 mg PO DAILY PRN PRN PRN Reason: Constipation Calamine/Phenol (Menthol/Lanolin/Calamine/Znox 113 Gm Tube) 1 applic TOPICAL TID [facility]; Protocol Last Admin: 12/27/20 05:36 Dose: 1 applic Documented by: Levetiracetam (Levetiracetam 1,000 Mg Tablet) 1,000 mg PO BID [facility] Last Admin: 12/27/20 11:30 Dose: 1,000 mg Documented by: Nystatin (Nystatin Powder 15gm Bottle) 1 applic TOPICAL 0600,2200 [facility]; Protocol Last Admin: 12/27/20 05:36 Dose: 1 applic Documented by: Polyethylene Glycol (Polyethylene Glycol 3350 17 Gm Packet) 17 gm PO BID [facility] Last Admin: 12/27/20 09:19 Dose: 17 gm Documented by: Potassium Chloride (Potassium Chloride Oral Tablet 20 Meq) 40 meq PO BIDCM [facility] Last Admin: 12/27/20 09:19 Dose: 40 meq Documented by: Senna/Docusate Sodium (Senna/Docusate Sodium 1 Tablet) 2 tablet PO BID [facility] Last Admin: 12/27/20 09:19 Dose: 2 tablet Documented by: Sodium Chloride (0.9% Saline Lock 10 Ml Syringe) 10 - 40 ml IV UD PRN PRN Reason: SALINE FLUSH Tamsulosin HCl (Tamsulosin Hcl 0.4 Mg Capsule) 0.4 mg PO DAILY@1730 [facility] Last Admin: 12/26/20 16:26 Dose: 0.4 mg Documented by: Medical Necessity - Tobacco Use Smoking Status: Former smoker Assessment/Plan All Active Problems Debility (Acute) MRSA bacteremia (Acute) Failure to thrive (Acute) Debility -Karnofsky score is 40 - has indicated that she is no longer able to take care of him at home and placement will be required -Restart pending for discharge Leg pain -Unable to obtain any meaningful history from patient -No wincing or yelling with palpation of bilateral legs -No marked abnormalities noted on bilateral lower extremity x-rays or KUB -Continue to monitor History of strokes -Continue aspirin Hyperlipidemia -Continue atorvastatin BPH -Continue Flomax History of seizures -New seizure precautions -Continue Keppra -He was started after he had a stroke Protein calorie malnutrition -Is on a regular diet at home -Dietitian is consulted DVT prophylaxis -Start Lovenox daily -Continue at discharge to penitentiary facility CODE STATUS -DNR CCA okay for intubation Dispo -Pre-CERT pending for discharge to penitentiary facility -Expect discharge within the next 24 hours Inpatient E&M: 42498 Subs Hosp L2
--- NOTE | 2020-12-27 14:49 | CASEMGMT ---
Healthcare POA scanned into summary tab of echart with living will provision initialed, [facility] Cooper is listed as pt's healthcare POA. LUDA Ayers
[2020-12-27 15:01] VITALS: BP 138/100; PULSE 71; RESP 16; TEMP 36.7; O2SAT 98
--- NOTE | 2020-12-27 15:41 | CASEMGMT ---
Social Work Note SW received call from Cyndy at [facility] stating they are able to accept pt and pre-cert has been submitted. TONY updated Cyndy that pt is medically ready for discharge once pre-cert has been obtained. TONY placed a call to pt's significant other Greer and updated her that [facility] doesn't accept pt's insurance but her second choice of [facility] does accept pt's insurance and is able to accept pt pending pre-cert. Greer states understanding. Plan: [facility] pending pre-cert Ayse Doss SUSTAINABILITY PURCHASING AGENT, DRIVER GUARD
[2020-12-27] MEDS: Tamsulosin HCl 0.4 MG Capsule PO (17:45)
[2020-12-27 21:00] VITALS: BP 136/91; PULSE 83; RESP 18; TEMP 36.6; O2SAT 97
[2020-12-27] MEDS: Atorvastatin Calcium 80 MG Tablet PO (22:23)
[2020-12-28 03:15] VITALS: BP 134/94; PULSE 81; RESP 16; TEMP 36.9; O2SAT 95
[2020-12-28] MEDS: Enoxaparin 40 MG/0.4 ML Syringe SC (06:08)
[2020-12-28] MEDS: Menthol/Lanolin/Calamine/Znox 113 GM Tube 1 APPLIC TOPICAL ×3 (06:08→21:28)
[2020-12-28] MEDS: Nystatin Powder 15gm Bottle 1 APPLIC TOPICAL ×2 (06:08→21:29)
[2020-12-28 06:34] LABS: Absolute Lymphocyte Count 1.37 X10^3/uL (0.83-4.51); Absolute Neutrophil Count 7.2 X10^3/uL (2.0-7.7); Basophil# 0.16 X10^3/uL; Basophil% 1.5 % (0-1); Eosinophils% 11.1 % (0-5); Hematocrit 38.6 % (40-54); Hemoglobin 11.9 g/dL (13.0-16.5); Lymphocyte # 1.37 X10^3/ul (4.0); Lymphocyte % 12.7 % (19-41); Mean Corp Hgb Conc 30.8 g/dL (32-36); Mean Corpuscular Hgb 27.5 pg (27.0-32.0); Mean Corpuscular Volume 89.4 fL (80-94); Mean Platelet Vol. 10.7 fl (6.2-12.0); Monocyte% 7.4 % (0-10); NRBC Flagged by Analyzer 0 % (0-5); Neutrophil # 7.23 X10^3/uL (2.7-7.7); Neutrophil % 66.8 % (47-70); Platelet Count 284 K/mm3 (150-450); RBC Distribution Width CV 13.4 % (11.6-14.6); RBC Distribution Width SD 43.8 fl (35.1-43.9); Red Blood Count 4.32 M/mm3 (4.6-6.2); White Blood Count 10.8 K/mm3 (4.4-11.0)
[2020-12-28 06:55] LABS: Anion Gap 7 (5-15); BUN 26 mg/dL (7-18); BUN/Creat Ratio 19.5 RATIO (10-20); Calcium,Total 8.9 mg/dL (8.5-10.1); Chloride 103 mmol/L (98-107); Creatinine, Serum 1.33 mg/dL (0.70-1.30); EST Glomerular Filtration Rate 57 mL/min (>60); Est Glom Filt Rate - Afr Amer 69 mL/min (>60); Estimated Creatinine Clearance 53.32 ml/min; Glucose 89 mg/dL (74-106); Potassium 3.6 mmol/L (3.5-5.1); Sodium Level 137 mmol/L (136-145)
[2020-12-28] MEDS: Aspirin 81 MG TAB.CHEW PO (09:07)
[2020-12-28] MEDS: Potassium Chloride Oral Tablet 20 MEQ 40 MEQ PO ×2 (09:07→17:04)
[2020-12-28] MEDS: Senna/Docusate Sodium 1 Tablet 2 TABLET PO ×2 (09:08→21:28)
[2020-12-28] MEDS: Polyethylene Glycol 3350 17 GM PACKET PO ×2 (09:08→21:28)
[2020-12-28] MEDS: levETIRAcetam 1,000 MG Tablet 1000 MG PO ×2 (09:08→21:28)
[2020-12-28 09:15] VITALS: BP 114/90; PULSE 82; RESP 18; TEMP 36.8; O2SAT 96
--- NOTE | 2020-12-28 12:27 | CASEMGMT ---
Social Work Note SW placed a call to Cyndy at [facility], pre-cert is still pending. Plan: [facility] pending pre-cert Ayse Doss FLEET TECHNICIAN, WIRELESS NETWORK ENGINEER
[2020-12-28 14:56] VITALS: BP 128/83; PULSE 72; RESP 18; TEMP 36.7; O2SAT 95
--- NOTE | 2020-12-28 16:00 | CASEMGMT ---
Social Work Note TONY placed a call to Cyndy at [facility] and updated her that this worker is leaving for today and to call [facility] number if pre-cert is obtained. [facility] number provided. TONY placed Green sheet on chart, COVID test, COVID screening tool, Transport form, and PAS/RR on pt's chart in the event pre-cert is obtained. TONY completed PAS/RR. TONY updated Charge Nurse and RN. RN states she told pt's that if [facility] hears from insurance [email or web address], [facility] will call her. Plan: [facility] pending pre-cert Ayse Doss TRIAGE ASSISTANT, PRODUCTION TROUBLESHOOTER
--- NOTE | 2020-12-28 16:03 | PN_ITS ---
Patient Problems: Active and Suspected Problems Debility (Acute) MRSA bacteremia (Acute) Failure to thrive (Acute) Subjective: Overall no changes and patient remains minimally interactive although when I did see him today and asked him how he was doing he replied good. That was the only interaction I was able to get out of him today. Vitals/I&O's: Vital Signs Temp Pulse Resp BP Pulse Ox 98.0 F 72 18 128/83 H 95 12/28/20 14:56 12/28/20 14:56 12/28/20 14:56 12/28/20 14:56 12/28/20 14:56 Oxygen Delivery Method Room Air Weight: 69 kg Body Mass Index (BMI) 21.8 Finger Stick Blood Glucose 111 Intake and Output for Last 24 Hours 12/26/20 12/27/20 12/28/20 23:59 23:59 23:59 Intake Total 1300 / 1500 1000 / 1000 680 / 680 Balance 1300 / 1500 1000 / 1000 680 / 680 General: Alert, Cooperative, No apparent distress, Well developed, Well nourished, - - Older white male lying in bed, appears older than stated age, minimally interactive although quite alert HEENT: Atraumatic, Normocephalic Oral: Moist Mucosa Neck: Supple, Trachea Midline, Thyroid Normal Size and Texture Lungs: Clear to auscultation, Normal air movement, No rhonchi, No wheeze, No rales Cardiovascular: Regular rate, Regular Rhythm, Normal S1, Normal S2, No murmurs, No Ectopic Activity, No Gallop Abdomen: Bowel Sounds Present, Soft, Non Tender, Non-Distended Extremities: No clubbing, No cyanosis, No edema, Capillary Refill Less than 3 Seconds, Peripheral Pulses Normal Skin: No rashes, No breakdown Musculoskeletal: - - Bilateral lower extremities flex into approximately 90/90 position and patient unwilling to move from this position Psych/Mental Status: - - Flat affect and minimally interactive Microbiology Past 72 Hours 12/27/20 14:55 Mucosa - Nasopharyngeal SARS-CoV-2 Antigen (Rapid) - Final Laboratory Results 12/28/20 06:27: WBC 10.8, RBC 4.32 L, Hgb 11.9 L, Hct 38.6 L, MCV 89.4, MCH 27.5, MCHC 30.8 L, RDW Std Deviation 43.8, RDW Coeff of Shazia 13.4, Plt Count 284, MPV 10.7, Immature Gran % (Auto) 0.500, Neut % (Auto) 66.8, Lymph % (Auto) 12.7 L, [place] % (Auto) 7.4, Eos % (Auto) 11.1 H, Baso % (Auto) 1.5 H, Absolute Neuts (auto) 7.2, Absolute Lymphs (auto) 1.37, Nucleated RBC % 0 12/28/20 06:27: Sodium 137, Potassium 3.6, Chloride 103, Carbon Dioxide 27.0, Anion Gap 7, BUN 26 H, Creatinine 1.33 H, Estim Creat Clear Calc 53.32, Est GFR (MDRD) Af Amer 69, Est GFR (MDRD) Non-Af 57 L, BUN/Creatinine Ratio 19.5, Glucose 89, Calcium 8.9 Current Medications Acetaminophen (Acetaminophen 325 Mg Tablet) 650 mg PO Q4H PRN PRN PRN Reason: Pain Score 1-10 Aspirin (Aspirin 81 Mg Tab.Chew) 81 mg PO DAILY@0800 [facility] Last Admin: 12/28/20 09:07 Dose: 81 mg Documented by: Atorvastatin Calcium (Atorvastatin Calcium 80 Mg Tablet) 80 mg PO QHS [facility] Last Admin: 12/27/20 22:23 Dose: 80 mg Documented by: Bacitracin (Bacitracin 15 Gm Tube) 1 applic TOPICAL BID PRN PRN; Protocol PRN Reason: redness Bisacodyl (Bisacodyl 5 Mg Tablet) 5 mg PO DAILY PRN PRN PRN Reason: Constipation Calamine/Phenol (Menthol/Lanolin/Calamine/Znox 113 Gm Tube) 1 applic TOPICAL TID [facility]; Protocol Last Admin: 12/28/20 14:55 Dose: 1 applic Documented by: Enoxaparin Sodium (Enoxaparin 40 Mg/0.4 Ml Syringe) 40 mg SC DAILY@0600 [facility] Last Admin: 12/28/20 06:08 Dose: 40 mg Documented by: Levetiracetam (Levetiracetam 1,000 Mg Tablet) 1,000 mg PO BID [facility] Last Admin: 12/28/20 09:08 Dose: 1,000 mg Documented by: Nystatin (Nystatin Powder 15gm Bottle) 1 applic TOPICAL 0600,2200 [facility]; Protocol Last Admin: 12/28/20 06:08 Dose: 1 applic Documented by: Polyethylene Glycol (Polyethylene Glycol 3350 17 Gm Packet) 17 gm PO BID [facility] Last Admin: 12/28/20 09:08 Dose: 17 gm Documented by: Potassium Chloride (Potassium Chloride Oral Tablet 20 Meq) [facility] Last Admin: 12/28/20 09:07 Dose: 40 meq Documented by: Senna/Docusate Sodium (Senna/Docusate Sodium 1 Tablet) 2 tablet PO BID [facility] Last Admin: 12/28/20 09:08 Dose: 2 tablet Documented by: Sodium Chloride (0.9% Saline Lock 10 Ml Syringe) 10 - 40 ml IV UD PRN PRN Reason: SALINE FLUSH Tamsulosin HCl (Tamsulosin Hcl 0.4 Mg Capsule) 0.4 mg PO DAILY@1730 [facility] Last Admin: 12/27/20 17:45 Dose: 0.4 mg Documented by: STROKE Vital Signs/Narrative: Vital Signs Temp Pulse Resp BP Pulse Ox 12/28/20 14:56 98.0 F 72 18 128/83 H 95 Medical Necessity - Tobacco Use Smoking Status: Former smoker Assessment/Plan All Active Problems Debility (Acute) MRSA bacteremia (Acute) Failure to thrive (Acute) Debility -Karnofsky score is 40 - has indicated that she is no longer able to take care of him at home and placement will be required -Pre-CERT remains pending Leg pain -Unable to obtain any meaningful history from patient -No wincing or yelling with palpation of bilateral legs -No marked abnormalities noted on bilateral lower extremity x-rays or KUB -Continue to monitor--> no current issues today Mild anemia -Hemoglobin 11.9 -No signs of bleeding -Suspect dilutional -Repeat in 48 hours of patient is still here CKD stage IIIa -Creatinine appears to be at baseline and slightly better than on admission -Repeat BMP in a.m. -Monitor closely for dehydration History of strokes -Continue aspirin Hyperlipidemia -Continue atorvastatin BPH -Continue Flomax History of seizures -New seizure precautions -Continue Keppra -He was started after he had a stroke Protein calorie malnutrition -Is on a regular diet at home -Dietitian following DVT prophylaxis -Lovenox daily -Continue at [facility] CODE STATUS -DNR CCA okay for intubation Dispo -Pre-CERT john pending for discharge to prison facility Inpatient E&M: 52108 Subs Hosp L2
[2020-12-28] MEDS: Tamsulosin HCl 0.4 MG Capsule PO (17:04)
[2020-12-28] MEDS: Atorvastatin Calcium 80 MG Tablet PO (21:28)
[2020-12-28] MEDS: 0.9% Saline Lock 10 ML Syringe IV (21:28)
[2020-12-28 21:55] VITALS: BP 148/91; PULSE 75; RESP 16; TEMP 37.4; O2SAT 96
[2020-12-28] MEDS: Acetaminophen 325 MG Tablet 650 MG PO (21:59)
[2020-12-29 04:15] VITALS: BP 170/110; PULSE 82; RESP 16; TEMP 36.8; O2SAT 94
[2020-12-29 04:46] VITALS: BP 170/110; PULSE 82
[2020-12-29] MEDS: hydrALAZINE 20 MG/ML Vial 10 MG IV (04:46)
[2020-12-29] MEDS: 0.9% Saline Lock 10 ML Syringe IV (04:46)
[2020-12-29] MEDS: Acetaminophen 325 MG Tablet 650 MG PO ×2 (05:12→10:36)
[2020-12-29] MEDS: Nystatin Powder 15gm Bottle 1 APPLIC TOPICAL (05:17)
[2020-12-29] MEDS: Menthol/Lanolin/Calamine/Znox 113 GM Tube 1 APPLIC TOPICAL ×2 (05:17→15:32)
[2020-12-29] MEDS: Enoxaparin 40 MG/0.4 ML Syringe SC (05:18)
[2020-12-29 05:20] VITALS: BP 160/96
[2020-12-29 06:33] LABS: Anion Gap 7 (5-15); BUN 22 mg/dL (7-18); BUN/Creat Ratio 15.8 RATIO (10-20); Calcium,Total 9.1 mg/dL (8.5-10.1); Chloride 104 mmol/L (98-107); Creatinine, Serum 1.39 mg/dL (0.70-1.30); EST Glomerular Filtration Rate 54 mL/min (>60); Est Glom Filt Rate - Afr Amer 66 mL/min (>60); Estimated Creatinine Clearance 51.02 ml/min; Glucose 96 mg/dL (74-106); Potassium 3.8 mmol/L (3.5-5.1); Sodium Level 136 mmol/L (136-145)
--- NOTE | 2020-12-29 09:53 | CASEMGMT ---
Addendum entered by Ayse Doss 12/29/20 11:20: RN Spoke with Greer and updated her that pt will be discharged to [facility] today. Greer states pt has not had COVID vaccination. TONY placed a call to Cyndy at [facility] and updated her. Original Note: Social Work Note SW received update from Brittany Baldwin stating pt's Greer is going down to [place] today and may not be available for updates. Pt's step son Narendra works from home though and will likely be available for updates ([phone]) and also pt's daughter Vandana ([phone]) will also likely be available for updates as well. TONY received message from Cyndy at [facility] stating pre-cert was obtained and pt is able to discharge today. TONY updated physician. Cyndy also asked if pt has received COVID vaccination. TONY reviewed chart, nothing has been charted about pt receiving vaccination. TONY will ask either pt's or children when this worker calls them for update regarding discharge today. TONY completed PAS/RR in [place]. TONY to fax discharge paperwork once completed. Plan: [facility] skilled today Ayse Doss CHIEF PETROLEUM ENGINEER, PR[employer]ED [employer]ARDS STRIPPER ETCHER
[2020-12-29] MEDS: Senna/Docusate Sodium 1 Tablet 2 TABLET PO (10:20)
[2020-12-29] MEDS: Potassium Chloride Oral Tablet 20 MEQ 40 MEQ PO (10:20)
[2020-12-29] MEDS: Polyethylene Glycol 3350 17 GM PACKET PO (10:20)
[2020-12-29] MEDS: levETIRAcetam Oral Solution 500 MG/5 ML 1000 MG PO (10:21)
[2020-12-29] MEDS: Aspirin 81 MG TAB.CHEW PO (10:21)
[2020-12-29 10:56] VITALS: BP 150/68; PULSE 79; RESP 18; TEMP 36.6; O2SAT 97
--- NOTE | 2020-12-29 12:37 | TREXTCAR_ITS ---
- Diet 12/25/20 13:09 Diet: Regular - General Food consistency:: Mechanical (Minced/Moist) Liquid Consistency:: Regular/Thin Type of Dietary Supplement:: Ensure Enlive Is pt able to select menu?: No Diet Comments: 1 bottle chocolate ensure each tray 1000,1330, 1800, do not puree banana br - Routine Orders/Code Status Enema Frequency: Daily PRN Keep PO Greater than or Equal to (%): 92 Routine Lab Work: CBC, BMP Code [facility] - Okay for intubation - Wound(s) right neck base Wound Type: healing carbuncle - Therapies Physical Therapy: Eval and Treat Occupational Therapy: Eval and Treat Speech Therapy: Eval and Treat - Allergies/Procedures Done in Hospital Allergies/Adverse Reactions: Allergies Iodinated Contrast Media [CONTRASTS] Allergy (Verified 12/25/20 09:39) Hives Penicillins Allergy (Verified 12/25/20 09:43) NEEDS FOLLOW-UP Procedures: None - Type of Care/Length of Stay Estimated LOS: More Than 30 Days Type of Care Needed: Skilled Rehab Potential: Poor Prognosis: Poor - Additional Orders/Day of Discharge Day of Discharge: 12/29/20 - Dietary and Speech Recommendations Dietitian Recommendations/Changes: Will continue liberalized regular diet w/ texture and consistency as per ASSISTANT WOMENS VOLLEYBALL COACH as needed. Will vary ONS w/ meals to better assess which pt will accept and tolerate best; will try ensure pudding, magic cup and ensure shakes. Consider TF support if intake remains suboptimal and wt loss continues. - Follow Up Care Primary Care Physician: Zaid Booker Chi, MD [Primary Care Provider] - Please follow up with your Primary Care Physician in: 1 to 2 weeks after discharge from jail facility
--- NOTE | 2020-12-29 12:40 | DS.PCM_ITS ---
Discharge Date and Diagnosis - Problem List Patient Problems: Active and Suspected Problems Debility (Acute) MRSA bacteremia (Acute) Failure to thrive (Acute) Date of Admission: 12/25/20 Date of Discharge: 12/29/20 - Primary Discharge Diagnosis Acute Problems: Active Problems Debility (Acute) MRSA bacteremia (Acute) Failure to thrive (Acute) - Secondary Discharge Diagnosis Chronic Problems: Chronic Problems History of hemorrhagic stroke with residual hemiparesis (Chronic) Encephalopathy (Chronic) Mixed aphasia (Chronic) Dysphagia (Chronic) Urinary incontinence (Chronic) Stroke (Chronic) Right hemiparesis (Chronic) Seizure disorder (Chronic) Hyperlipidemia (Chronic) BPH (benign prostatic hyperplasia) (Chronic) Fatty liver (Chronic) Hospital Course and Treatment Imaging Results: STUDY: X-RAY CHEST REASON FOR EXAM: Male, 65 years old. weakness, bedbound from a previous stroke TECHNIQUE: Single AP portable view of the chest. COMPARISON: 05/11/2020. FINDINGS: The lungs are clear and expanded. There is no demonstrated pleural abnormality. Normal size heart. Normal mediastinum and riley. Normal visualized pulmonary arteries. Normal visualized aortic arch and descending thoracic aorta. Normal visualized thoracic spine. Normal visualized ribs, clavicles, and shoulders. There is no demonstrated abnormality of the visualized soft tissue structures of the upper abdomen. RAD/Chest 1 View (Portable) IMPRESSION: Normal x-ray examination of the chest. INDICATION: bilateral hip pain, patient is non verbal, non communicative, limited ROM EXAMINATION/TECHNIQUE: X-RAY - BILATERAL XR Hips Bilateral with Pelvis when performed; 2 Views COMPARISON: None. FINDINGS: PELVIC BONES: No displaced fracture, destructive or sclerotic lesions. Note that overlapping bowel shadows may however obscure fine detail. Sacroiliac joints are unremarkable. No widening of the pubic symphysis. HIPS: The articular structures are unremarkable. No displaced fracture seen in this frontal view. SOFT TISSUES: No soft tissue swelling or gas. RAD/Hips B/L min 2 views w/ Pelvis IMPRESSION: No evidence of displaced pelvic or hip fracture. INDICATION: abdominal pain EXAMINATION/TECHNIQUE: X-RAY - XR Abdomen 1 View COMPARISON: 05/14/2020 FINDINGS: BOWEL GAS PATTERN: Non-obstructive. No bowel or stomach distention. Moderate fecal retention. FREE AIR: Not assessed on a single supine view. ORGANOMEGALY: Not seen. CALCIFICATIONS: No abnormal calcifications observed. LOWER CHEST: No acute pathology. BONES AND SOFT TISSUES: No acute pathology. RAD/Abdomen Single View IMPRESSION: Non-obstructive bowel gas pattern. Moderate fecal retention. None Operations: None Summary of Care Provided: Mr. Chen is a 65 year old WM with a past medical history of hemorrhagic stroke with residual hemiparesis, debility, chronic encephalopathy, aphasia, dysphagia, urinary incontinence, seizure disorder, hyperlipidemia, BPH, fatty liver, and failure to thrive who presented to the emergency department [facility] on 12/25/2020 with a chief complaint of weakness. Per discussion with his at the time of admission the patient had had 2 strokes that have left him completely independent for all of his ADLs. He has right upper extremity hemiparesis as a result of his previous strokes. Prior to admission he was able to stand with significant assistance to help with transfers but per family the patient has started flexing his legs and when is able unable to help with transferring and has therefore made his home care significantly more difficult. His work-up in the emergency department was grossly unremarkable. He had x-rays done of his pelvis and hips which were unremarkable and a KUB that showed only moderate constipation. The KUB was done as there was some concern that possibly his decreased willingness to straighten his legs was related to some abdominal pain. Upon admission his was requesting assistance in getting the patient into a senior living facility for continued care. They had started this process but he was currently on a wait list. His Karnofsky score is extremely poor at 40 and his overall work-up has been unremarkable. He does have some CKD stage IIIa and tends to get dehydrated as p.o. intake is limited at times. He may require a PEG in the future. He was maintained on Keppra throughout his hospitalization and has had no signs of recurrent seizures. He has remained grossly noninteractive throughout his stay and will occasionally respond but has remained alert. This appears to be his baseline. He has been accepted for admission at [facility] and was discharged on 12/29/2020 in stable condition. Discharge diagnoses History of hemorrhagic stroke x2 Persistent right-sided hemiparesis Aphasia Dysphagia Debility/failure to thrive Mild anemia-stable CKD stage IIIa Hyperlipidemia BPH Seizure disorder Protein calorie malnutrition BPH Urinary incontinence Fatty liver Discharge time greater than 35 minutes Patient Problems: Active and Suspected Problems Debility (Acute) MRSA bacteremia (Acute) Failure to thrive (Acute) - Physical Exam Vitals/I&O's: Vital Signs Temp Pulse Resp BP Pulse Ox 97.9 F 79 18 150/68 H 97 12/29/20 10:56 12/29/20 10:56 12/29/20 10:56 12/29/20 10:56 12/29/20 10:56 Oxygen Delivery Method Room Air Weight: 69 kg Body Mass Index (BMI) 21.8 Finger Stick Blood Glucose 111 Intake and Output for Last 24 Hours 12/27/20 12/28/20 12/29/20 23:59 23:59 23:59 Intake Total 1000 / 1000 920 / 1220 540 / 540 Balance 1000 / 1000 920 / 1220 540 / 540 General: Alert, No apparent distress, Well developed, Well nourished, - - Upper middle-aged male lying in bed, appears older than stated age, awake but no meaningful interaction HEENT: Atraumatic, PERRLA, EOMI, Normocephalic, EAC Clear Oral: - - Patient will not allow oral examination and clenches his mouth with attempts at passive opening for evaluation Neck: Supple, Trachea Midline, Thyroid Normal Size and Texture Lungs: Clear to auscultation, Normal air movement, No rhonchi, No wheeze, No rales Cardiovascular: Regular rate, Regular Rhythm, Normal S1, Normal S2, No murmurs, No Ectopic Activity, No rub noted, No Gallop Abdomen: Bowel Sounds Present, Soft, Non Tender, Non-Distended, No Hepato- splenomegaly, No hernias noted Extremities: No clubbing, No cyanosis, No edema, Capillary Refill Less than 3 Seconds, Peripheral Pulses Normal Skin: No rashes, No breakdown, - - Pale skin Musculoskeletal: No Tenderness to Palpation of Joints or Extremities, Arthritic Changes, Muscle Wasting Lymphatic: No Cervical, Supraclavicular, or Inguinal Adenopathy Neurological: - - Flexes mildly hyperactive at 3+ unable to do full neuro exam secondary to lack of patient participation Psych/Mental Status: - - Fused and minimal interaction the patient is alert Microbiology Past 72 Hours 12/27/20 14:55 Mucosa - Nasopharyngeal SARS-CoV-2 Antigen (Rapid) - Final Laboratory Results 12/29/20 05:48: Sodium 136, Potassium 3.8, Chloride 104, Carbon Dioxide 25.0, Anion Gap 7, BUN 22 H, Creatinine 1.39 H, Estim Creat Clear Calc 51.02, Est GFR (MDRD) Af Amer 66, Est GFR (MDRD) Non-Af 54 L, BUN/Creatinine Ratio 15.8, Gl ucose 96, Calcium 9.1 Current Medications Acetaminophen (Acetaminophen 325 Mg Tablet) 650 mg PO Q4H PRN PRN PRN Reason: Pain Score 1-10 Last Admin: 12/29/20 10:36 Dose: 650 mg Documented by: Aspirin (Aspirin 81 Mg Tab.Chew) 81 mg PO DAILY@0800 [facility] Last Admin: 12/29/20 10:21 Dose: 81 mg Documented by: Atorvastatin Calcium (Atorvastatin Calcium 80 Mg Tablet) 80 mg PO QHS [facility] Last Admin: 12/28/20 21:28 Dose: 80 mg Documented by: Bacitracin (Bacitracin 15 Gm Tube) 1 applic TOPICAL BID PRN PRN; Protocol PRN Reason: redness Bisacodyl (Bisacodyl 5 Mg Tablet) 5 mg PO DAILY PRN PRN PRN Reason: Constipation Calamine/Phenol (Menthol/Lanolin/Calamine/Znox 113 Gm Tube) 1 applic TOPICAL TID [facility]; Protocol Last Admin: 12/29/20 05:17 Dose: 1 applic Documented by: Enoxaparin Sodium (Enoxaparin 40 Mg/0.4 Ml Syringe) 40 mg SC DAILY@0600 [facility] Last Admin: 12/29/20 05:18 Dose: 40 mg Documented by: Hydralazine HCl (Hydralazine 20 Mg/Ml Vial) 10 mg IV Q4H PRN PRN PRN Reason: SBP > 160 Last Admin: 12/29/20 04:46 Dose: 10 mg Documented by: Levetiracetam (Levetiracetam Oral Solution 500 Mg/5 Ml) 1,000 mg PO BID [facility] Last Admin: 12/29/20 10:21 Dose: 1,000 mg Documented by: Nystatin (Nystatin Powder 15gm Bottle) 1 applic TOPICAL 0600,2200 [facility]; Protocol Last Admin: 12/29/20 05:17 Dose: 1 applic Documented by: Polyethylene Glycol (Polyethylene Glycol 3350 17 Gm Packet) 17 gm PO BID [facility] Last Admin: 12/29/20 10:20 Dose: 17 gm Documented by: Potassium Chloride (Potassium Chloride Oral Tablet 20 Meq) [facility] Admin: 12/29/20 10:20 Dose: 40 meq Documented by: Senna/Docusate Sodium (Senna/Docusate Sodium 1 Tablet) 2 tablet PO BID [facility] Last Admin: 12/29/20 10:20 Dose: 2 tablet Documented by: Sodium Chloride (0.9% Saline Lock 10 Ml Syringe) 10 - 40 ml IV UD PRN PRN Reason: SALINE FLUSH Last Admin: 12/29/20 04:46 Dose: 10 ml Documented by: Tamsulosin HCl (Tamsulosin Hcl 0.4 Mg Capsule) 0.4 mg PO DAILY@1730 [facility] Last Admin: 12/28/20 17:04 Dose: 0.4 mg Documented by: Home Medications: Medications to take at Discharge Aspirin [Aspirin, Baby] 81 mg PO DAILY@0800 tab.chew 05/24/20 Atorvastatin Calcium [Lipitor] 80 mg PO QHS tab 05/24/20 Menthol/Lanolin/Calamine/Znox [Calmoseptine Ointment] 1 applic TOPICAL TID tube 05/24/20 Nystatin Powder [Mycostatin Powder] 1 applic TOPICAL 0600,2200 bottle 05/24/20 Tamsulosin HCl [Flomax] 0.4 mg PO DAILY@1730 cap 05/24/20 Acetaminophen [Tylenol Tablet] 650 mg PO Q4H PRN PRN tablet 12/29/20 Bacitracin Ointment 1 applic TOPICAL BID PRN PRN tube 12/29/20 Bisacodyl [Dulcolax] 5 mg PO DAILY PRN PRN tablet 12/29/20 Enoxaparin [Lovenox] 40 mg SC DAILY@0600 syringe 12/29/20 Menthol/Lanolin/Calamine/Znox [Calmoseptine Ointment] 1 applic TOPICAL TID tube 12/29/20 Potassium Chloride Oral Tablet [K-Dur] 20 meq PO BIDCM #0 tablet 12/29/20 Senna/Docusate Sodium [Senokot-S] 2 tablet PO BID tablet 12/29/20 levETIRAcetam oral solution [Keppra Solution] 1,000 mg PO BID [facility] 12/29/20 Primary Care Physician: Zaid Booker Chi, MD [Primary Care Provider] - Please follow up with your Primary Care Physician in: 1 to 2 weeks after discharge from senior living facility Medical Necessity - Tobacco Use Smoking Status: Former smoker Meaningful Use Info Meaningful Use Diagnoses (Choose all that apply): None applicable Inpatient E&M: 13032 [facility] Hosp
--- NOTE | 2020-12-29 13:57 | PHA.DC.MR ---
Pharmacy Service has performed discharge medication reconciliation for this patient. The patient's discharge medication list was reviewed for discrepancies and discrepancies were resolved. Home Medications Aspirin [Aspirin, Baby] 81 mg PO DAILY@0800 tab.chew 05/24/20 Atorvastatin Calcium [Lipitor] 80 mg PO QHS tab 05/24/20 Nystatin Powder [Mycostatin Powder] 1 applic TOPICAL 0600,2200 bottle 05/24/20 Tamsulosin HCl [Flomax] 0.4 mg PO DAILY@1730 cap 05/24/20 Acetaminophen [Tylenol Tablet] 650 mg PO Q4H PRN PRN tablet 12/29/20 Bacitracin Ointment 1 applic TOPICAL BID PRN PRN tube 12/29/20 Bisacodyl [Dulcolax] 5 mg PO DAILY PRN PRN tablet 12/29/20 Enoxaparin [Lovenox] 40 mg SC DAILY@0600 syringe 12/29/20 Menthol/Lanolin/Calamine/Znox [Calmoseptine Ointment] 1 applic TOPICAL TID tube 12/29/20 Potassium Chloride Oral Tablet [K-Dur] 20 meq PO BIDCM #0 tablet 12/29/20 Senna/Docusate Sodium [Senokot-S] 2 tablet PO BID tablet 12/29/20 levETIRAcetam oral solution [Keppra Solution] 1,000 mg PO BID [facility] 12/29/20
--- NOTE | 2020-12-29 14:17 | CASEMGMT ---
Social Work Note TONY faxed completed discharge paperwork to Cyndy at [facility] including transfer to extended care facility, signed medication list, any scripts, COVID test, COVID screening tool and PAS/RR. Original in SNF folder and copy on pt's chart. TONY spoke with RN, per conversation with pt's significant other Greer, Greer wanted this worker to call one of the children (Narendra or Vandana) to update on transportation time as Greer is at [facility]. TONY accessed trip assist and arranged transportation via cot for 3:30pm. Transportation form completed and placed on SNF folder and copy on pt's chart. TONY placed a call to pt's son Narendra and updated him on discharge and transportation time, Narendra states he will relay the message. TONY placed a call to Cyndy at [facility] and updated her on transportation time. RN updated. Plan: [facility] skilled today with [facility] transporting pt via cot at 3:30pm Ayse POWERS, EMD SPECIAL EDUCATION TEACHER
--- NOTE | 2020-12-29 14:24 | NURSING ---
left message for nurse to call back for report.
--- NOTE | 2020-12-29 14:33 | NURSING ---
report called to nurse at [facility].
[2020-12-29 15:30] VITALS: BP 148/64; PULSE 72; RESP 18; TEMP 36.6; O2SAT 98
== END 2020-12-29 15:55 | disposition skilled nursing facility (03) ==
LOC: ED 11:39 → MS3 13:12
PROVIDERS: Emergency Provider Emergency Medicine; PCP Family Medicine Geriatric Medicine; Visit Provider Internal Medicine
DX: R53.81 Other malaise (principal); B95.62 Methicillin resistant Staphylococcus aureus infection as the cause of diseases classified elsewhere; R78.81 Bacteremia; R62.7 Adult failure to thrive; N40.1 Benign prostatic hyperplasia with lower urinary tract symptoms; N39.498 Other specified urinary incontinence; G40.909 Epilepsy, unspecified, not intractable, without status epilepticus; E78.5 Hyperlipidemia, unspecified; R47.01 Aphasia; K76.0 Fatty (change of) liver, not elsewhere classified; R13.10 Dysphagia, unspecified; L89.311 Pressure ulcer of right buttock, stage 1; N18.31 Chronic kidney disease, stage 3a; E43 Unspecified severe protein-calorie malnutrition; Z66 Do not resuscitate; D64.9 Anemia, unspecified; K59.00 Constipation, unspecified; I69.351 Hemiplegia and hemiparesis following cerebral infarction affecting right dominant side; Z79.82 Long term (current) use of aspirin; Z79.899 Other long term (current) drug therapy; Z87.891 Personal history of nicotine dependence; Z68.21 Body mass index [BMI] 21.0-21.9, adult
CPT/HCPCS: 36415; 71045; 73521; 74018; 80048; 80053; 81001; 83690; 85025; 85610; 85730; 87426; 93005; 96372; 96374; 97110; 97162; 97167; 97530; 97535; 97802; 99218; 99285; J7040; P9612; A4216; G0378